=== PATIENT | female | born 1960 | race Caucasian/White ===

== ENCOUNTER 2024-01-26 21:41 | Outpatient (REF) | payer BC, SELFPAY ==
[2024-01-26 22:54] LABS: Anion Gap -0.9 mmol/L (3-11); BUN 15 mg/dL (7-18); CO2 31.9 mmol/L (21.0-32.0); CREATININE 0.8 mg/dL (0.55-1.02); Calcium 8.9 mg/dL (8.5-10.1); Chloride 101 mmol/L (98-107); Estimated GFR 82.74 (mL/min/1.73m2); Glucose 96 mg/dL (74-106); Sodium 132 mmol/L (136-145); Vitamin D 25 Total 26.6 ng/mL (30-100)
== END 2024-01-26 21:42 | disposition home or self-care (01) ==
LOC: NCHCN 21:41
PROVIDERS: Visit Provider Family Medicine
DX: E87.1 Hypo-osmolality and hyponatremia (principal); E55.9 Vitamin D deficiency, unspecified
CPT/HCPCS: 80048; 82306

== ENCOUNTER 2024-02-06 15:48 | Outpatient (REF) | payer BC, SELFPAY ==
[2024-02-06 14:37] LABS: HCT 40.2 % (36.0-46.0); HGB 13.6 g/dL (11.2-15.7); MCH 31.9 pg (27.0-33.0); MCHC 33.8 % (32.0-36.0); MCV 94 fL (80-95); Platelet Count 203 10^3/uL (130-400); RBC 4.26 10^6/uL (3.93-5.22); RDW 12.3 % (11.7-14.6); RDW-SD 42.8 fL; WBC 4.41 10^3/uL (4.4-10.8)
[2024-02-06 14:58] LABS: ALT 60 U/L (14-59); AST 50 U/L (15-37); Alkaline Phosphatase 97 U/L (46-116); Bilirubin, Direct 0.1 mg/dL (0.0-0.2)
== END 2024-02-06 15:49 | disposition home or self-care (01) ==
LOC: NCHCN 15:48
PROVIDERS: PCP Family Medicine; Visit Provider Family Medicine
DX: E87.1 Hypo-osmolality and hyponatremia (principal); E87.8 Other disorders of electrolyte and fluid balance, not elsewhere classified
CPT/HCPCS: 80076; 85027

== ENCOUNTER 2024-02-14 16:35 | Outpatient (REF) | payer BC, SELFPAY ==
[2024-02-14 22:11] LABS: Iron 170 ug/dL (50-170); Total Iron Binding Capacity 232 ug/dL (250-450); Transferrin Sat 73 % (15-50)
[2024-02-14 22:29] LABS: Ferritin 144 ng/mL (8-252)
[2024-02-16 09:00] LABS: Hepatitis C Ab w Rflx HCV PCR Negative (Negative)
[2024-02-16 09:09] LABS: Hepatitis B Surface Ag Negative (Negative)
[2024-02-16 14:29] LABS: ANA Interpretation Negative (Negative)
[2024-02-17 16:05] LABS: Smooth Muscle Ab Screen Negative (Negative)
== END 2024-02-14 16:36 | disposition home or self-care (01) ==
LOC: NCHCN 16:35
PROVIDERS: PCP Family Medicine; Visit Provider Family Medicine
DX: R74.01 Elevation of levels of liver transaminase levels (principal)
CPT/HCPCS: 86803; 87340; 82728; 83540; 83550; 86038; 86255

== ENCOUNTER 2024-03-20 21:33 | Outpatient (REF) | payer BC, SELFPAY ==
--- OUTSIDE RECORDS SUMMARY | 2024-03-20 21:35 | XMS_ITS | Encounter Summary ---
Author Organization [facility] Address [address] [place] [address] Care Team Providers Care Automatic Drill Operator Name Role Phone Indy Champion MD Primary Care Provider Encounter Details Date Type Department Care Team (Late st Contact Info) Description 06/28/2023 Lab Requisition [facility] Pathology & Laboratory Medicine - [facility] [address] [place] [address] Peri Cordero MD [address] [place] [address] [address] [place] [phone] Neoplasm of uncertain behavior of skin Social History Tobacco Use Types Packs/Day Years Used Date Smoking Tobacco: Never Smokeless Tobacco: Never Alcohol Use Standard Drinks/Week Comments Yes 7 (1 standard drink = 0.6 oz pur e alcohol) 1 glass wine q evening Interpersonal Safety Answer Date Record ed Physically Hurt Never 02/10/2020 Verbally Threaten Not on file 02/10/2020 Sex and Gender Information Value Date Recorded Sex Assigned at Not on file Gender Identity Female 05/16/2019 10:23 EST Sexual Orientation Not on file documented as of this encounter Functional Status Functional Status Response Date of Assess ment Because of a physical, menta l, or emotional condition, does this person have difficulty doing errands alone such as visiting a doctor's office or shopping? No 04/20/2017 Cognitive Status Response Date of Assessm ent Because of a physical, menta l, or emotional condition, does this person have serious difficulty concentrating, remembering, or making decisions? No 04/20/2017 documented as of this encounter Plan of Treatment Upcoming Encounters Date Type Department Care Team (Late st Contact Info) Description 03/21/2024 8:30 EDT Appointment [facility] [address] [place], [place] [phone] 04/17/2024 10:50 EDT Appointment [facility] Endoscopy - [address] [phone] Marcellus Walsh MD [address] [place] [address] 5 [place] [phone] 05/01/2024 13:30 EDT Appointment [facility] Breast Imaging - [address] [phone] 05/15/2024 15:00 EST Telemedicine [facility] Gastroenterology - [address] [phone] Madhu Park MD PhD [address] [place] [phone] 12/10/2024 11:30 EDT Office Visit [facility] Surgical Oncology - [address] [phone] [facility], PA-C [address] [place] [address], [facility] 2 [place] [phone] documented as of this encounter Procedures Procedure Name Priority Date/Time Associated Diagnosis Comments SURGICAL PATHOLOGY Today 06/28/2023 13 :29 EST Neoplasm of uncertain behavior of skin documented in this encounter Results * SURGICAL PATHOLOGY (06/28/2023 13:29 EST) Note to Patient The following pathology results have been interpreted by your pathologist and may be available to you before your health provider has had the opportunity to review them. Please allow time for your provider to receive these results and explore management options, if applicable. 06/29/2023 15:58 [facility] Final Diagnosis A. SKIN OF GLABELLA, SHAVE BIOPSY: - Basal cell carcinoma, at least superficial type, transected at the base. 06/29/2023 15:58 [facility] Attestation By the signature below, the attending physician certifies that they have 1) personally conducted a gross and/or microscopic examination of the described specimen(s), and/or personally interpreted the results of laboratory testing of the described specimen(s), and 2) personally rendered or confirmed the above diagnosis. 06/29/2023 15:58 [facility] at 1558 Clinical History Pearly telangiectatic papule; Ddx: R/O BCC; Notes: Mohs GG; clinical diagnosis code: D48.5 06/29/2023 15:58 [facility] Gross Description A. Received in formalin labelled with proper patient identification (initials T, D) and glabella is a dull olivia skin shave, 0.2 cm in greatest dimension. The margin is inked. Entirely submitted intact in A1. URI HOLDEN(ASCP) 06/29/2023 7:14 06/29/2023 15:58 [facility] Performing Lab [facility] 06/29/2023 15:58 [facility] Scanned Images 06/29/2023 15:58 [facility] Tissue SPECIMEN FROM SKIN / Unknown 06/28/2023 13:29 EST 06/28/2023 20:02 EST Peri Cordero MD PATHOLOGY ORDERABLES [facility] [address] [place] [address] documented in this encounter Visit Diagnoses Diagnosis Neoplasm of uncertain behavior of skin documented in this encounter Care Teams Automatic Drill Operator Relationship Specialty Start Date End Date Indy Champion MD [address] [place] [id number] PCP - General 04/15/15 documented as of this encounter
--- OUTSIDE RECORDS SUMMARY | 2024-03-20 21:35 | XMS_ITS | Encounter Summary ---
Author Organization [facility] Address [address] [place] [address] Care Team Providers Care Chief Growth Officer Name Role Phone Indy Champion MD Primary Care Provider Reason for Visit * Reason Comments Follow-up Encounter Details Date Type Department Care Team (Late st Contact Info) Description 06/16/2022 9:30 EST Office Visit [facility] Surgical Oncology - [address] [address] [facility] PAPrabhaC [address] [place] [address], Level 2 [place] [phone] Dense breast tissue on mammogram (Primary Dx) Social History Tobacco Use Types Packs/Day Years Used Date Smoking Tobacco: Never Smokeless Tobacco: Never Tobacco Cessation:Counseling Given: Not Answered Alcohol Use Standard Drinks/Week Comments Yes 7 [...] on file documented as of this encounter Last Filed Vital Signs Vital Sign Reading Time Taken Comments Blood Pressure 133/64 06/16/2022 0927 EST Pulse 54 06/16/2022 0927 EST Temperature 36.1 ??C (96.9 ??F) 06/16/2022 0927 EST Respiratory Rate - - Oxygen Saturation - - Inhaled Oxygen Concentration - - Weight - - Height - - Body Mass Index - - documented in this encounter Functional Status Functional Status Response [...] No 04/20/2017 documented as of this encounter Progress Notes * [facility] PA-C - 06/16/2022 0930 EST Subjective: Patient ID: Sandhya Lomas is an 61 y.o. y.o. female Chief Complaint: Chief Complaint Patient presents with ??? Follow-up HPI: Division of Surgical Oncology- Breast [facility] PROGRESS NOTE/FOLLOW UP- 06/16/2022 PROBLEM: 1. ??Dense breast tissue 2. ??S/p 11/03/16 ultrasound-guided left breast biopsy. ??Pathology was benign and concordant showing fibrocystic changes including papillary apocrine hyperplasia and dense interlobular fibrosis SUBJECTIVE: Sandhya Lomas is a 61??year old female who returns to the clinic for her clinical breast exam. ??Josh established care in our clinic previously due to her personal history of dense breast tissue.Screening continues to include annual mammography, screening ultrasounds (due to breast density) and clinical breast exams. Patient does not have any breast concerns today. She denies any masses, skin changes or nipple discharge. Patient reports she did undergo a right total hip replacement in Decemberthis year. She did undergo another Mohs surgery (face) last month. She continues to follow-up with [facility]. 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 Menarche at age 14. ??. ??First delivery at age 36. ?? SOCIAL HISTORY: , lives in [place]One??of her sons lives in [place] and the other is in [place]. ? FAMILY HISTORY: No family history of breast and/or ovarian cancer Patient Active Problem List Diagnosis ??? Basal cell carcinoma of skin ??? Inconclusive mammogram due to dense breasts ??? Diffuse cystic mastopathy of both breasts Past Medical History: Diagnosis Date ??? Anemia resolved Iron deficiency anemia winter 2008 ??? Basal cell carcinoma ??? BCC (basal cell carcinoma), leg 12/11/2010 right vázquez ??? Complication of anesthesia difficulty waking from general anesthesia ??? Diffuse cystic mastopathy 12/01/2009 ??? S/P colonoscopy 03/2011 Norm. 10 yr f/u Past Surgical History: Procedure Laterality Date ??? ABDOMEN SURGERY 1988 dermoid cyst ??? BREAST FNA Left 2017 ??? SECTION 1995, 1997 ??? MOHS SURGERY 11/2009 basal cell carcinoma, right orthodox Family History Problem Relation Age of Onset ??? Cancer Mother 68 lung ??? Diabetes Father ??? Cancer Maternal Aunt 58 lungs/p smoking ??? Cancer Maternal Uncle 60 lungs/p smoking ??? Rheumatologic Disease Paternal Grandmother lupus Social History Tobacco Use ??? Smoking status: Never ??? Smokeless tobacco: Never Substance Use Topics ??? Alcohol use: Yes Alcohol/week: 7.0 standard drinks Types: 7 Glasses of wine per week Comment: 1 glass wine q evening ??? Drug use: No acyclovir (ZOVIRAX) 5 % ointment CHOLECALCIFEROL, VITAMIN D3, ORAL ibuprofen (ADVIL ORAL) NIACINAMIDE ORAL valacyclovir (VALTREX) 1 g tablet VITAMIN E/FLAXSEED OIL (OMEGA-3 FLAXSEED OIL ORAL) No current facility-administered medications for this visit. No Known Allergies BP 133/64 Pulse 54 Temp 36.1 ??C (96.9 ??F) (Temporal) Review of Systems: Constitutional: Negative for chills, fever, malaise/fatigue and weight loss Eyes: Negative for pain Respiratory: Negative for hemoptysis, shortness of breath and wheezing Cardiovascular: Negative for chest pain, claudication and leg swelling Gastrointestinal: Negative for abdominal pain Musculoskeletal: Negative for myalgias Skin: Negative for rash Neurological: Negative for sensory change, speech change, seizures and loss of consciousness Endo/Heme/Allergies: Does not bruise/bleed easily Psychiatric/Behavioral: Negative for hallucinations, substance abuse and suicidal ideas - See HPI Physical Exam: Constitutional: She is oriented to person, place and time. Vital signs are normal. She appears well-developed and well-nourished.No distress noted. Head: Normocephalic and atraumatic Eyes: No discharge. No scleral icterus. Cardiovascular: Normal rate and regular rhythm. Pulmonary/Chest: Effort normal and breath sounds normal. No respiratory distress. She has no wheezes,rhonchi or rales. Breast Exam: Breasts and axilla are examined in the seated and the supine position. Dense breast tissue noted in bilateral breast. In the right breast at 730 to 8:00 4 cm out from the nipple there isan area of denser tissue which on most recent ultrasound in February 2022 revealed a stable oval mass. There are no discrete or obvious palpable abnormalities in either breast. There is no skin puckering, dimpling, nipple inversion/change, or nipple discharge. There is no obvious discoloration of thebreast. There are no axillary masses Lymphadenopathy: She has no cervical, supraclavicular or axillary adenopathy. Neurological: She is alert and oriented x3, Coordination is normal Skin: Skin is warm and dry. No rash is present. No erythema or pallor is present. Psychiatric: Patient has normal mood and affect. Her behavior is normal. Vital signs have been reviewed. MA BREAST SCREENING CINDY BILATERAL 08/14/2021 2:30 PM History: Routine Comparison: Comparison has been made to previous images. Technique: Routine 3D tomosynthesis with synthesized 2D views with CAD Bilateral Breast Composition: The breast tissue is extremely dense, which lowers the sensitivity ofmammography. Bilateral Breast Findings: No significant masses, calcifications or other abnormalities are seen. IMPRESSION Negative, no evidence of malignancy. RECOMMENDATION: Routine screening mammography is recommended. Given the extreme breast density, we recommend annual screening mammography and supplemental screening breast ultrasound. OVERALL ASSESSMENT: BI-RADS 1: Negative US ABUS BREAST SCREENING BILATERAL 03/04/2022 10:45 AM Clinical History/Comments: Screening. dense breast tissue on mammogram Comparisons: Mammography most recently performed in August 2021, prior automated breast ultrasound screening in February 2021 and November 2018 and prior hand-held ultrasound screening in February 2020 and October 2017. Technique: 3-D automated breast ultrasound was performed using the 6-15 MHz [employer] ABUS device. All 4 quadrants and the subareolar regions were examined. These images and multiplanar reformats were reviewedon a dedicated workstation. Findings Right Breast: Background echotexture: Heterogeneous background echotexture No suspicious ultrasound findings are identified. There is a stable oval mass at 7:30, 4 cm from the nipple. Findings Left Breast: Background echotexture: Heterogeneous background echotexture No suspicious ultrasound findings are identified. Impression Right Breast: Benign, BI-RADS Category 2. Impression Left Breast: Negative, BI-RADS Category 1. Recommendation Bilateral Breasts: No specific sonographic evidence of malignancy in either breast. Annual screening mammography is recommended, which is next due in August 2022. Additionally, if ongoing supplemental whole breast screening ultrasound is desired, this could next be performed in February 2023. Overall Assessment: BI-RADS Category Assessment 2: Benign Findings. Assessment: Anne continues to follow in our clinic due to her personal history of dense fibrocystic breasts. ??Screening has included annual mammography, screening ultrasounds (due to breast density) and clinical breast exams. Patient had a screening mammogram performed most recently on 08/14/2021 which was read as negative. Her breast tissue was noted to be extremely dense. We did discuss continuing to supplement her annual mammogram with a screening ultrasound given her breast density. She did have a screening ultrasound performed most recently on 03/04/2022 which was read as benign. Her breast exam today was stable, and did not reveal any new concerning findings and compared to her most recent screening ultrasound results. Plan: 1. Schedule screening mammogram, due 08/2022 2. Screening ultrasound, due 02/2023 3. Return to clinic in 12 months for clinical breast exam. Patient can see her PCP or her BLOOD BANK BOOKING CLERK in 6 months for an additional clinical breast exam. 4. Encouraged patient to practice breast awareness and report any changes or new concerns to our office. Patient was seen for 20 minutes and 10 minutes were spent in face to face counseling regarding personal history of dense breast tissue. Screening plan was discussed as above. I was directly supervised by our clinic physician, Dr. Cook, who was in the suite and immediately available for the entire time for the above documented service was provided. Encounter Diagnoses Name Primary? Dense breast tissue on mammogram Yes [facility] PA-C No orders of the defined types were placed in this encounter. documented in this encounter Plan of Treatment Upcoming Encounters Date Type Department Care Team (Dank st Contact Info) Description 03/21/2024 8:30 EDT Appointment [facility] [address] [place], [place] [phone] 04/17/2024 10:50 EDT Appointment [facility] Endoscopy - [address] [phone] Marcellus Walsh MD [address] [place] [address] 5 [place] [phone] 05/01/2024 13:30 EDT Appointment [facility] Breast Imaging - [facility] [address] [place], [place] [phone] 05/15/2024 15:00 EST Telemedicine [facility] Gastroenterology - [address] [phone] Madhu Park MD PhD [address] [place] [phone] 12/10/2024 11:30 EDT Office Visit [facility] Surgical Oncology - [address] [phone] [facility], PA-C [address] [place] [address], [facility] 2 [place] [phone] documented as of this encounter Procedures Procedure Name Priority Date/Time Associated Diagnosis Comments ORDERS - SCANNED 01/14/2023 10:34 EDT documented in this encounter Results * ORDERS - SCANNED (01/14/2023 10:34 EDT) 01/14/2023 10:3 4 EDT Scan 2 [facility] ADMISSION ORDERABLE S documented in this encounter Visit Diagnoses Diagnosis Dense breast tissue on mammogram- Primary documented in this encounter Care Teams Chief Growth Officer Relationship Specialty Start Date End Date Indy Champion MD [address] [place] [address] PCP - General 04/15/15 documented as of this encounter
--- OUTSIDE RECORDS SUMMARY | 2024-03-20 21:35 | XMS_ITS | Encounter Summary ---
Author Organization [facility] Address [address] [place] [address] Care Team Providers Care Insurance Follow Up Representative Name Role Phone Indy Champion MD Primary Care Provider Reason for Visit * Reason Onset Date Comments Requesting Sooner Appointment 06/08/2022 Encounter Details Date Type Department Care Team (Late st Contact Info) Description 06/08/[address] [facility] Surgical Oncology - [address] [address] [facility], PA-C [address] [place] [address], Level [address] [place] [phone] Requesting Sooner Appointment Social History Tobacco Use Types Packs/Day Years [...] No 04/20/2017 documented as of this encounter Miscellaneous Notes * Telephone Encounter - Nancy Ramirez - 06/08/2022 1110 EST No availability until November 2022; patient is aware. She will keep her appt on 06/16/2022 with [facility]. Nancy Ramirez 06/08/2022 11:11 * Telephone Encounter - CostelloHa brown - 06/08/2022 1054 EST Patient wondering if there is any possibility of moving their appt up to this week. Please call to discuss. documented in this encounter Plan of Treatment Upcoming Encounters Date Type Department Care Team (Late st Contact Info) Description 03/21/2024 8:30 EDT Appointment [facility] Ultrasound [address] [place] [address] 04/17/2024 10:[address] [facility] Endoscopy - [facility] [address] [place], [place] [address] Marcellus Walsh MD [address] [phone] 05/01/2024 13:[address] [facility] Breast Imaging - [address] [phone] 05/15/2024 15:[address] [facility] Gastroenterology - [facility] [address] [place], [place] [address] Madhu Park MD PhD [address] [phone] 12/10/2024 11:30 EDT Office Visit [facility] Surgical Oncology - [facility] [address] [place], [place] [address] [facility] PA-C [address] [facility], [facility], Level [address] [place] [phone] documented as of this encounter Visit Diagnoses Not on filedocumented in this encounter Care Teams Insurance Follow Up Representative Relationship Specialty Start Date End Date Indy Champion MD [address] [place] [address] PCP - General 04/15/15 documented as of this encounter
--- OUTSIDE RECORDS SUMMARY | 2024-03-20 21:35 | XMS_ITS | Encounter Summary ---
Author Organization [facility] Address [address] [place] [address] Care Team Providers Care Kerrick Kleaner Operator Name Role Phone Indy Champion MD Primary Care Provider Reason for Visit * Reason Onset Date Comments Appointment Related 06/09/2021 Encounter Details Date Type Department Care Team (Late st Contact Info) Description 06/09/2021 Telephone [facility] Surgical Oncology - [address] [phone] [facility], PA-C [address] [place] [address], Level [address] [place] [phone] Appointment Related Social History Tobacco Use Types Packs/Day Years [...] encounter Miscellaneous Notes * Telephone Encounter - Lety Chacon - 06/09/2021 0923 EST received a call from the patient looking to reschedule her visit with [facility] on: 06/10/2021. While on the phone we rescheduled this visit to: 06/11/2021 - pt is aware Lety Marteon 06/09/2021 9:27 documented in this encounter Plan of Treatment Upcoming Encounters Date Type Department Care Team (Late st Contact Info) Description 03/21/2024 8:30 EDT Appointment Karin Danielle [address] [address] 04/17/2024 10:50 EDT Appointment [facility] Endoscopy - [address] [address] Marcellus Walsh MD [address] [place] [address] 5 [place] [phone] 05/01/2024 13:30 EDT Appointment [facility] Breast Imaging - [address] [address] 05/15/2024 15:00 EST Telemedicine [facility] Gastroenterology - [address] 635571 Madhu Park MD PhD [address] [place] [address] 5 [place] [phone] 12/10/2024 11:30 EDT Office Visit [facility] Surgical Oncology - [address] 797[address] [facility], PA-C [address] [place] [address], Level [address] [place] [phone] documented as of this encounter Visit Diagnoses Not on filedocumented in this encounter Care Teams Kerrick Kleaner Operator Relationship Specialty Start Date End Date Indy Champion MD [address] [place] [address] PCP - General 04/15/15 documented as of this encounter
--- OUTSIDE RECORDS SUMMARY | 2024-03-20 21:35 | XMS_ITS | Clinical Summary ---
Author Organization [facility] Address [address] [place] [address] Care Team Providers Care It Application Development Manager Name Role Phone Indy Champion MD Primary Care Provider Allergies No known active allergies Medications Medication Sig Dispensed Refills Start Date End Date Status VITAMIN E/FLAXSEED OIL (OMEGA-3 FLAXSEED OIL ORAL) Take 1 Tab by mouth daily. Active valacyclovir (VALTREX) 1 g tablet Take 0.5 Tabs by mouth 2 times daily. For three days at the earliest onset of symptoms 18 Tab 1 04/29/2010 Active acyclovir (ZOVIRAX) 5 % ointmentIndications: Recurrent cold sores Apply to lip at onset of tingling. Can three times per day 1 Tube 1 04/21/2011 Active Additional Information Patient not taking.Reported on 11/24/2023 NIACINAMIDE ORAL Take by mouth. Acti ve ibuprofen (ADVIL ORAL) Take by mouth. Active CHOLECALCIFEROL, VITAMIN D3, ORAL Take by mouth. Acti ve Active Problems Problem Noted Date Diagnosed Date Diffuse cystic mastopathy of both breasts 2009 Basal cell carcinoma of skin 10/24/2009 Overview: Right anglican, s/p Mohs - 11/24/09 Inconclusive mammogram due to dense breasts Overview: Extremely dense breast tissue and diffuse palpable nodularity Encounters Date Type Department Care Team Description 03/15/2024 Lab Requisition [facility] Pathology & Laboratory Medicine - [facility] [address] [place] [address] Prajapati, Tawny Neoplasm of uncertain behavior of skin 02/28/2024 - 02/28/2024 23:59 EDT Hospital Encounter [facility] Secondary Reads [place] Discharge Disposition: Home or Self Care 02/15/2024 Lab Requisition [facility] Pathology & Laboratory Medicine [address] [address] Outr Resulting Lab, Provider 02/15/2024 Lab Requisition [facility] Pathology & Laboratory Medicine [address] [address] Outr Resulting Lab, Provider 02/02/2024 Transcribe Orders [facility] Gastroenterology [address] [address] Rocio Hendrix MD Special screening for malignant neoplasms, colon (Primary Dx) from Last 3 Months Immunizations Name Administration Dates Next Due Tdap Vaccine =>7YO IM 04/21/2011 Surgical History Surgery Date Site/Laterality Comments MOHS SURGERY 11/08/2009 - 12/08/2009 basal cell carcinoma, right anglican SECTION 1995, 1997 ABDOMEN SURGERY 07/11/1987 - 07/10/1988 dermoid cyst BREAST FNA 07/11/2016 - 07/10/2017 Left Medical History Medical History Date Comments Diffuse cystic mastopathy 12/01/2009 Basal cell carcinoma BCC (basal cell carcinoma), leg 12/11/2010 right vázquez Anemia resolved Iron de ficiency anemia winter 2008 Complication of anesthesia diffi culty waking from general anesthesia S/P colonoscopy 03/2011 Norm. 10 yr f/u Family History Medical History Relation Comments Diabetes Father Cancer Maternal Aunt lungs/p smoking Cancer Maternal Uncle lungs/p smoking Cancer Mother lung Rheumatologic Disease Paternal Grandmother lupus Relation Status Comments Brother 1 Alive Brother 2 Alive Brother 3 Alive Father Maternal Aunt Maternal Uncle Mother Paternal Grandmother Sister 1 Alive Sister 2 Alive Social History Tobacco Use Types Packs/Day Years [...] 10:23 EST Sexual Orientation Not on file Obstetrics History Para Term AB IAB SAB Ectopic Multiple Livin g Live Births 2 2 2 Date Outcome GA Total Labor Labor/2nd/3rd Weight Sex Type Anes PTL Opal A1 A5 Name Clin Para Para Last Filed Vital Signs Vital Sign Reading Time Taken Comments Blood Pressure 134/75 11/24/2023 1324 EDT Pulse 66 11/24/2023 1324 EDT Temperature 36.1 ??C (96.9 ??F) 06/16/2022 0927 EST Respiratory Rate 12 06/11/2021 1458 EST Oxygen Saturation 100% 03/11/2011 1035 EDT Inhaled Oxygen Concentration - - Weight 58.5 kg (129 lb) 04/11/2012 0952 EDT Height 165.1 cm (5' 5) 08/13/2020 1104 EST Body Mass Index 21.11 04/11/2012 0952 EDT Plan of Treatment Upcoming Encounters Date Type Department Care Team (Late st Contact Info) Description 03/21/2024 8:30 EDT Appointment Karin Danielle Ultrasound [address] [place], [place] [address] 04/17/2024 10:50 EDT Appointment [facility] Endoscopy - [address] [address] Marcellus Walsh MD [address] [place] [phone] 05/01/2024 13:30 EDT Appointment [facility] Breast Imaging - [facility] [address] [phone] 05/15/2024 15:00 EST Telemedicine [facility] Gastroenterology - [address] [phone] Madhu Park MD PhD [address] [phone] 12/10/2024 11:30 EDT Office Visit [facility] Surgical Oncology - [facility] [address] [place], [place] [phone] Magnolia Blood PA-C 111 [facility], Level [address] [place] [address] Health Maintenance Due Date Last Done Comments RSV Immunization ( o r 60+ Years) (1 - 1-dose 60+ series) 2020 COVID-19 Vaccine (2022-24 season) 2024 Hepatitis C Screen Completed 02/14/2024 Procedures Procedure Name Priority Date/Time Associated Diagnosis Comments SURGICAL PATHOLOGY Today 03/14/2024 12 :28 EDT Neoplasm of uncertain behavior of skin US OUTSIDE IMAGES BODY Routine 02/28/2024 15:40 EDT ORDERS - SCANNED 02/15/2024 17:4 1 EDT HOLD SST Today 02/14/2024 14:10 EDT HEPATITIS B SURFACE ANTIGEN Today 02/14/2024 14:10 EDT HEPATITIS C AB W REFLEX TO HCV RNA BY PCR Today 02/14/2024 14:10 EDT ANTI NUCLEAR AB (REMY), IFA Routine 02/14/2024 14:10 EDT from Last 3 Months Results * SURGICAL PATHOLOGY (03/14/2024 12:28 EDT) Note to Patient The following pathology results have been interpreted by your pathologist and may be available to you before your health provider has had the opportunity to review them. Please allow time for your provider to receive these results and explore management options, if applicable. 03/16/2024 13:24 EDT [facility] Final Diagnosis A. SKIN OF FOREHEAD, LEFT LATERAL, SHAVE BIOPSY: - Basal cell carcinoma, superficial multicentric type. - Lesion extends to peripheral edge of biopsy specimen. 03/16/2024 13:24 [facility] Attestation By the signature below, the attending physician certifies that they have 1) personally conducted a gross and/or microscopic examination of the described specimen(s), and/or personally interpreted the results of laboratory testing of the described specimen(s), and 2) personally rendered or confirmed the above diagnosis. 03/16/2024 13:24 [facility] at 1324 Clinical History Basal cell carcinoma vs inflammatory papule; clinical diagnosis code: D48.5 03/16/2024 13:24 [facility] Gross Description A. Received in formalin labelled with proper patient identification (initials T, D) and left lateral forehead is a shave biopsy of irregular pearly brown skin (0.6 x 0.4 x 0.1 cm). The margin is inked blue, the specimen is bisected and entirely submitted in A1. Mar Ferguson 03/15/2024 11:38 03/16/2024 13:24 T [facility] Performing Lab [facility] 03/16/2024 13:24 T [facility] Scanned Images 03/16/2024 13:24 EDT [facility] Tissue SPECIMEN FROM SKIN / Unknown 03/14/2024 12:28 EDT 03/15/2024 8:06 EDT Lisa Rodriguez [facility] PATHOLOGY ORDERABLES [facility] [address] [place] [address] * US OUTSIDE IMAGES BODY (02/28/2024 15:40 EDT) Narrative 03/02/2024 15:41 EDT This is a non-reportable exam. External Imaging IMG OTHER IMAGING OR DERABLES * ORDERS - SCANNED (02/15/2024 17:41 EDT) 02/15/2024 17:4 1 EDT Scan 2 Systems Design Engineer ADMISSION ORDERABLE S * HOLD SST (02/14/2024 14:10 EDT) Hold Hold 02/15/2024 18:15 EDT [facility] Blood VENOUS BLOOD / Unknown 02/14/2024 14:10 EDT 02/15/2024 17:12 EDT Provider Outr Resulting Lab LAB INFO SER VICE AND SUPPORT & PHONE RESULT Performing Organization Address [facility]/ZIP Co de Phone Number [facility] [address] [place] [address] * HEPATITIS C AB W REFLEX TO HCV RNA BY PCR (02/14/2024 14:10 EDT) Hep C Antibody Negative Negative 02/16/2024 8:55 EDT [facility] Blood VENOUS BLOOD / Unknown 02/14/2024 14:10 EDT 02/15/2024 17:11 EDT Provider Outr Resulting Lab CHEMISTRY & BLOOD GAS ORDERABLES Performing Organization Address [facility]/ZIP Co de Phone Number [facility] [address] [place] [id number] * HEPATITIS B SURFACE ANTIGEN (02/14/2024 14:10 EDT) Hep B Surface Ag Negative Negative 02/16/2024 9:05 EDT [facility] Blood VENOUS BLOOD / Unknown 02/14/2024 14:10 EDT 02/15/2024 17:11 EDT Provider Outr Resulting Lab CHEMISTRY & BLOOD GAS ORDERABLES Performing Organization Address City/[facility]/ZIP Co de Phone Number [facility] [address] [place], [place] [id number] * ANTI NUCLEAR AB (REMY), IFA (02/14/2024 14:10 EDT) REMY Interpretation Negative Negative 2023 14:25 EDT [facility] Comment:No titer performed, REMY Screen is negative. Blood VENOUS BLOOD / Unknown 02/14/2024 14:10 EDT 02/15/2024 17:13 EDT Narrative [facility] - 02/16/2024 14:25 EDT Results were obtained with the [employer] NOVA Lite HEp-2 REMY Kit by indirect immunofluorescence. Provider Outr Resulting Lab IMMUNOLOGY A ND SEROLOGY ORDERABLES [facility] [address] [place], [place] [phone] from Last 3 Months Care Teams It Application Development Manager Relationship Specialty Start Date End Date Indy Champion MD [address] [place] [address] PCP - General 04/15/15
--- OUTSIDE RECORDS SUMMARY | 2024-03-20 21:35 | XMS_ITS | Encounter Summary ---
Author Organization [facility] Address [address] [place] [address] Care Team Providers Care Stair Builder Name Role Phone Indy Champion MD Primary Care Provider Reason for Visit * Reason Onset Date Comments Complex Medical Problems 06/16/2022 Encounter Details Date Type Department Care Team (Late st Contact Info) Description 06/16/2022 Orders Only [facility] Surgical Oncology - [address] [address] Magnolia Blood, PA-C 111 [facility], Level [address] [place] [address] Dense breast tissue on mammogram [...] 8:30 EDT Appointment Karin Danielle Ultrasound [address] [place] [address] 04/17/2024 10:50 EDT Appointment [facility] Endoscopy - [address] [phone] Marcellus Walsh MD [address] [place] [phone] 05/01/2024 13:30 EDT Appointment [facility] Breast Imaging - [address] [phone] 05/15/2024 15:00 EST Telemedicine [facility] Gastroenterology - [address] [phone] Madhu Park MD PhD [address] [place] [phone] 12/10/2024 11:30 EDT Office Visit [facility] Surgical Oncology - [address] [phone] Magnolia Blood PA-C [address] [place] [address], [facility] [address] [place] [phone] documented as of this encounter Visit Diagnoses Diagnosis Dense breast tissue on mammogram- Primary documented in this encounter Care Teams Stair Builder Relationship Specialty Start Date End Date Indy Champion MD [address] [place], [place] [address] PCP - General 10/6/15 documented as of this encounter
--- OUTSIDE RECORDS SUMMARY | 2024-03-20 21:35 | XMS_ITS | Encounter Summary ---
Author Organization [facility] Address [address] [place] [address] Care Team Providers Care Filling Hauler Weaving Name Role Phone Indy Champion MD Primary Care Provider Encounter Details Date Type Department Care Team (Late st Contact Info) Description 02/17/2022 Lab Requisition [facility] Pathology & Laboratory Medicine - [facility] [address] [place] [address] Tam Pal, PAPrabhaC [address] [facility] [address] [place] [address] Neoplasm of uncertain behavior of skin Social [...] 8:30 EDT Appointment Karin Danielle Ultrasound [address] [place], [place] [address] 04/17/2024 10:50 EDT Appointment [facility] Endoscopy - [address] [phone] Marcellus Walsh MD [address] [place] [address] 5 [place] [phone] 05/01/2024 13:30 EDT Appointment [facility] Breast Imaging - [address] [phone] 05/15/2024 15:00 EST Telemedicine [facility] Gastroenterology - [address] [phone] Madhu Park MD PhD [address] [place] [phone] 12/10/2024 11:30 EDT Office Visit [facility] Surgical Oncology - [address] [phone] Magnolia Blood, PA-C [address] [place] [address], [facility] [address] [place] [phone] documented as of this encounter Procedures Procedure Name Priority Date/Time Associated Diagnosis Comments SURGICAL PATHOLOGY Today 02/16/2022 10 :20 EDT Neoplasm of uncertain behavior of skin documented in this encounter Results * SURGICAL PATHOLOGY (02/16/2022 10:20 EDT) Note to Patient The following pathology results have been interpreted by your pathologist and may be available to you before your health provider has had the opportunity to review them. Please allow time for your provider to receive these results and explore management options, if applicable. 02/17/2022 16:27 [facility] Final Diagnosis A. SKIN OF CHEEK, LEFT INFERIOR MEDIAL MALAR, SHAVE BIOPSY: - Basal cell carcinoma, superficial and nodular types. - Lesion extends to biopsy edge and base. 02/17/2022 16:27 [facility] Attestation By the signature below, the attending physician certifies that they have 1) personally conducted a gross and/or microscopic examination of the described specimen(s), and/or personally interpreted the results of laboratory testing of the described specimen(s), and 2) personally rendered or confirmed the above diagnosis. 02/17/2022 16:27 [facility] at 1627 Clinical History 8 mm suspicious telangiectatic papule; DDx: Rule-out basal cell carcinoma vs. other; clinical diagnosis code: D48.5 02/17/2022 16:27 [facility] Gross Description A. Received in formalin labelled with proper patient identification (initials T, D) and left inferior medial malar... is a shave biopsy of brown skin (0.6 x 0.3 x 0.1 cm). The margin is inked blue. The tissue is bisected and entirely submitted in A1. URI CAPELLAN(ASCP) 02/17/2022 7:38 02/17/2022 16:27 [facility] Performing Lab [facility] 02/17/2022 16:27 [facility] Scanned Images 02/17/2022 16:27 [facility] Tissue TISSUE SPECIMEN FROM SKIN / Unknown 02/16/2022 10:20 EDT 02/17/2022 6:04 EDT Tam Pal PA-C PATHOLOGY ORDERAB [facility] [address] [place] [address] documented in this encounter Visit Diagnoses Diagnosis Neoplasm of uncertain behavior of skin documented in this encounter Care Teams Filling Hauler Weaving Relationship Specialty Start Date End Date Indy Champion MD [address] [place] [address] PCP - General 04/15/15 documented as of this encounter
--- OUTSIDE RECORDS SUMMARY | 2024-03-20 21:35 | XMS_ITS | Encounter Summary ---
Author Organization [facility] Address [address] [place] [address] Care Team Providers Care Repairer And Checker Name Role Phone Indy Champion MD Primary Care Provider Encounter Details Date Type Department Care Team (Latest Contact Info) Description 08/14/2021 Travel Social History Tobacco Use Types Packs/Day Years [...] 10:23 EST Sexual Orientation Not on file COVID-19 Exposure Response Date Recorded In the last month, have you been in contact with someone who was confirmed or suspected to have Coronavirus / COVID-19? No / Unsure 08/14/2021 14:28 EST documented as of this encounter Functional Status [...] Info) Description 03/21/2024 8:30 EDT Appointment Karin Saul [address] [place] [address] 04/17/2024 10:50 EDT Appointment [facility] Endoscopy - [address] [phone] Marcellus Walsh MD [address] [place] [address], [facility] [address] [place] [phone] 05/01/2024 13:30 EDT Appointment [facility] Breast Imaging - [address] [phone] 05/15/2024 15:00 EST Telemedicine [facility] Gastroenterology - [address] [phone] Madhu Park MD PhD [address] [place] [address], [facility] [address] [place] [phone] 12/10/2024 11:30 EDT Office Visit [facility] Surgical Oncology - [address] [phone] Magnolia Blood, PA-C [address] [place] [address], [facility] [address] [place] [phone] documented as of this encounter Visit Diagnoses Not on filedocumented in this encounter Care Teams Repairer And Checker Relationship Specialty Start Date End Date Indy Champion MD [address] [place], [place] [address] PCP - General 04/15/15 documented as of this encounter
--- OUTSIDE RECORDS SUMMARY | 2024-03-20 21:35 | XMS_ITS | Encounter Summary ---
Author Organization [facility] Address [address] [place] [address] Care Team Providers Care Glass Smoother Name Role Phone Indy Champion MD Primary Care Provider Reason for Referral * Radiology Services (Routine/Next Available) - Authorization Not Required Specialty Diagnoses / Procedures Referred By Dedra t Referred To Contact Diagnoses Dense breast tissue on mammogram Encounter for other screening for malignant neoplasm of breast Procedures US ABUS BREAST SCREENING BILATERAL US BREAST SCREENING ONLY BILATERAL Magnolia Blood PA-C [address] [phone] [facility] Referral ID Status Reason Start Date Expiration Date Visits Requested Visits Authorized [id number] Authorization Not Required 06/16/2022 1 1 Reason for Visit * Radiology Services (Routine/Next Available) - Authorization Not Required Specialty Diagnoses / Procedures Referred By Dedra sampson Referred To Contact Diagnoses Dense breast tissue on mammogram Encounter for other screening for malignant neoplasm of breast Procedures US ABUS BREAST SCREENING BILATERAL US BREAST SCREENING ONLY BILATERAL Magnolia Blood PA-C [address] [phone] [facility] Referral ID Status Reason Start Date Expiration Date Visits Requested Visits Authorized [id number] Authorization Not Required 06/16/2022 1 1 Encounter Details Date Type Department Care Team (Latest Contact Info) Description 05/05/2023 13:14 EDT - 05/05/2023 23:59 EDT Hospital Encounter [facility] Breast Imaging - [facility] [address] [place] [address] Dense breast tissue on mammogram; Encounter for other screening for malignant neoplasm of breast Discharge Disposition: Home or Self Care Social History Tobacco Use Types Packs/Day Years [...] No 04/20/2017 documented as of this encounter Medications at Time of Discharge Medication Sig Dispensed Refills Start Date End Date acyclovir (ZOVIRAX) 5 % ointmentIndications:Recur rent cold sores Apply to lip at onset of tingling. Can three times per day 1 Tube 1 04/21/2011 CHOLECALCIFEROL, VITAMIN D3, ORAL Take by mouth. ibuprofen (ADVIL ORAL) Take by mouth. NIACINAMIDE ORAL Take by mouth. valacyclovir (VALTREX) 1 g tablet Take 0.5 Tabs by mouth 2 times daily. For three days at the earliest onset of symptoms 18 Tab 1 04/29/2010 VITAMIN E/FLAXSEED OIL (OMEGA-3 FLAXSEED OIL ORAL) Take 1 Tab by mouth daily. documented as of this encounter Discharge Disposition Disposition Code Departure Means Destination Home or Self Care documented in this encounter Plan of Treatment Upcoming Encounters Date Type Department Care Team (Late st Contact Info) Description 03/21/2024 8:30 EDT Appointment Karin Shashi Ultrasound [address] [place] [address] 04/17/2024 10:50 EDT Appointment [facility] Endoscopy - [address] [phone] Marcellus Walsh MD [address] [place] [address] 5 [place] [phone] 05/01/2024 13:30 EDT Appointment [facility] Breast Imaging - [address] [phone] 05/15/2024 15:00 EST Telemedicine [facility] Gastroenterology - [address] [phone] Madhu Park MD PhD [address] [place] [address] 5 [place] [phone] 12/10/2024 11:30 EDT Office Visit [facility] Surgical Oncology - [address] [phone] Magnolia Blood PA-C [address] [place] [address], [facility] 2 [place] [phone] documented as of this encounter Procedures Procedure Name Priority Date/Time Associated Diagnosis Comments US ABUS BREAST SCREENING BILATERAL Routine 05/05/2023 14:02 EDT Dense breast tissue on mammogram Encounter for other screening for malignant neoplasm of breast documented in this encounter Results * US ABUS BREAST SCREENING BILATERAL (05/05/2023 14:02 EDT) Anatomical Region Laterality Modality Breast Bilateral Ultrasound 05/05/2023 14:4 0 EDT Narrative 05/05/2023 14:40 EDT US ABUS BREAST SCREENING BILATERAL ??05/05/2023 1:30 PM Clinical History/Comments: Screening. Dense breast tissue on mammogram;R92.30:Dense breast tissue on mammogram;Z12.39:Encounter for other screening for malignant neoplasm of breast Comparisons: Mammography most recently performed in November 2022, automated breast ultrasound screening in February 2022, February 2021 and November 2018 and hand-held ultrasound in February 2020 and October 2017. Technique: 3-D automated breast ultrasound was performed using the 6-15 MHz [employer] ABUS device. All 4 quadrants and the subareolar regions were examined. These images and multiplanar reformats were reviewed on a dedicated workstation. Findings Right Breast: Background echotexture: Heterogeneous background echotexture No suspicious ultrasound findings are identified. There is a stable oval mass in the right breast at 7 30-8 o'clock, 4 to 5 cm from the nipple. Findings Left Breast: Background echotexture: Heterogeneous background echotexture No suspicious ultrasound findings are identified. Impression Right Breast: BI-RADS 2: Benign Impression Left Breast: BI-RADS 1: Negative Recommendation Bilateral Breasts: No specific sonographic evidence of malignancy in either breast. Annual screening mammography is recommended, which is next due in November 2023. Additionally, if ongoing supplemental whole breast screening ultrasound is desired, this could next be performed in April 2024. Overall Assessment: BI-RADS 2: Benign The patient will be notified of the breast imaging results via a lay letter from Radiology. ??Radiology will contact the patient directly regarding any findings which require additional imaging. [id number] Magnolia Blood PA-C [facility] US ORDERABL ES documented in this encounter Visit Diagnoses Diagnosis Dense breast tissue on mammogram Encounter for other screening for malignant neoplasm of breast documented in this encounter Care Teams Glass Smoother Relationship Specialty Start Date End Date Indy Champion MD [address] [place] [address] PCP - General 04/15/15 documented as of this encounter
--- OUTSIDE RECORDS SUMMARY | 2024-03-20 21:35 | XMS_ITS | Referral Summary ---
Author Organization [facility] Address [address] [place] [address] Care Team Providers Care Recreation Facility Manager Name Role Phone Indy Champion MD Primary Care Provider Encounters Date Type Department Care Team Description 03/15/2024 Lab Requisition [facility] Pathology & Laboratory Medicine [address] [address] Lisa Prajapati A Neoplasm of uncertain behavior of skin 02/28/2024 - 02/28/2024 23:59 EDT Hospital Encounter [facility] Secondary Reads [place] Discharge Disposition: Home or Self Care 02/15/2024 Lab Requisition [facility] Pathology & Laboratory [address] [address] Outr Resulting Lab, Provider 02/15/2024 Lab Requisition [facility] Pathology & Laboratory Medicine [address] [address] Outr Resulting Lab, Provider 02/02/2024 Transcribe Orders [facility] Gastroenterology [address] [address] Rocio Hendrix MD Special screening for malignant neoplasms, colon (Primary Dx) from Last 3 Months Allergies No known active allergies Medications Medication [...] cell carcinoma of skin 10/24/2009 Overview: Right religion, s/p Mohs - 11/24/09 Inconclusive mammogram due to dense breasts Overview: Extremely dense breast tissue and diffuse palpable nodularity Immunizations Name Administration Dates Next Due Tdap Vaccine =>7YO IM 04/21/2011 Social History Tobacco Use Types Packs/Day Years [...] 10:23 EST Sexual Orientation Not on file Last Filed Vital Signs Vital Sign Reading [...] Body Mass Index 21.11 04/11/2012 0952 EDT Functional Status Functional Status Response Date of Assess ment Because of a physical, menta l, or emotional condition, does this person have difficulty doing errands alone such as visiting a doctor's office or shopping? No 04/20/2017 Cognitive Status Response Date of Assess ent Because of a physical, menta l, or emotional condition, does this person have serious difficulty concentrating, remembering, or making decisions? No 04/20/2017 Plan of Treatment Upcoming Encounters Date Type Department Care Team (Late st Contact Info) Description 03/21/2024 8:30 EDT Appointment [facility] Ul[facility] [address] [place], [place] [address] 04/17/2024 10:50 EDT Appointment [facility] Endoscopy - [address] [address] Marcellus Walhs MD [address] [place] [phone] 05/01/2024 13:30 EDT Appointment [facility] Breast Imaging - [address] [phone] 05/15/2024 15:00 EST Telemedicine [facility] Gastroenterology - [address] [phone] Madhu Park MD PhD [address] [place] [phone] 12/10/2024 11:30 EDT Office Visit [facility] Surgical Oncology - [address] [phone] [facility] PA-C [address] [place] [address], [facility] [address] [place] [phone] Procedures Procedure Name Priority Date/Time Associated Diagnosis [...] explore management options, if applicable. 03/16/2024 13:24 [facility] Final Diagnosis A. SKIN OF FOREHEAD, LEFT LATERAL, SHAVE BIOPSY: - Basal cell carcinoma, superficial multicentric type. - Lesion extends to peripheral edge of biopsy specimen. 03/16/2024 13:24 [facility] Attestation By the signature below, the attending physician certifies that they have 1) personally conducted a gross and/or microscopic examination of the described specimen(s), and/or personally interpreted the results of laboratory testing of the described specimen(s), and 2) personally rendered or confirmed the above diagnosis. 03/16/2024 13:24 [facility] at 1324 Clinical History Basal cell carcinoma vs inflammatory papule; clinical diagnosis code: D48.5 03/16/2024 13:24 [facility] Gross Description A. Received in formalin labelled with proper patient identification (initials T, D) and left lateral forehead is a shave biopsy of irregular pearly brown skin (0.6 x 0.4 x 0.1 cm). The margin is inked blue, the specimen is bisected and entirely submitted in A1. Mar Ferguson 03/15/2024 11:38 03/16/2024 13:24 EDT [facility] Performing Lab [facility] 03/16/2024 13:24 EDT [facility] Scanned Images 03/16/2024 13:24 EDT [facility] Tissue SPECIMEN FROM SKIN / Unknown 03/14/2024 12:28 EDT 03/15/2024 8:06 EDT Lisa Prajapati PATHOLOGY ORDERABLES Performing Organization Address [facility]/ZIP Co de Phone Number [facility] [address] [place] [address] * US OUTSIDE IMAGES BODY (02/28/2024 15:40 EDT) Narrative 03/02/2024 15:41 EDT This is a non-reportable exam. External Imaging IMG OTHER IMAGING OR DERABLES * ORDERS - SCANNED (02/15/2024 17:41 EDT) 02/15/2024 17:4 1 EDT Scan 2 Contract Administrative Assistant ADMISSION ORDERABLE S * HOLD SST (02/14/2024 14:10 EDT) Hold Hold 02/15/2024 18:15 EDT [facility] Blood VENOUS BLOOD / Unknown 02/14/2024 14:10 EDT 02/15/2024 17:12 EDT Provider Outr Resulting Lab LAB INFO SER VICE AND SUPPORT & PHONE RESULT Performing Organization Address City/[facility]/ZIP Co de Phone Number [facility] [address] [place] [address] * HEPATITIS C AB W REFLEX TO HCV RNA BY PCR (02/14/2024 14:10 EDT) Hep C Antibody Negative Negative 02/16/2024 8:55 EDT [facility] Blood VENOUS BLOOD / Unknown 02/14/2024 14:10 EDT 02/15/2024 17:11 EDT Provider Outr Resulting Lab CHEMISTRY & BLOOD GAS ORDERABLES [facility] [address] [place] [address] * HEPATITIS B SURFACE ANTIGEN (02/14/2024 14:10 EDT) Hep B Surface Ag Negative Negative 02/16/2024 9:05 EDT [facility] Blood VENOUS BLOOD / Unknown 02/14/2024 14:10 EDT 02/15/2024 17:11 EDT Provider Outr Resulting Lab CHEMISTRY & BLOOD GAS ORDERABLES Performing Organization Address [facility]/ZIP Co de Phone Number [facility] [address] [place] [address] * ANTI NUCLEAR AB (REMY), IFA (02/14/2024 14:10 EDT) REMY Interpretation Negative Negative 2023 14:25 EDT [facility] Comment:No titer performed, REMY Screen is negative. Blood VENOUS BLOOD / Unknown 02/14/2024 14:10 EDT 02/15/2024 17:13 EDT Narrative [facility] - 02/16/2024 14:25 EDT Results were obtained with the [employer] NOVA Lite HEp-2 REMY Kit by indirect immunofluorescence. Provider Outr Resulting Lab IMMUNOLOGY A ND SEROLOGY ORDERABLES Performing Organization Address City/[facility]/ZIP Co de Phone Number [facility] [address] [place] [address] from Last 3 Months Care Teams Recreation Facility Manager Relationship Specialty Start Date End Date Indy Champion MD [address] [place] [address] PCP - General 04/15/15
--- OUTSIDE RECORDS SUMMARY | 2024-03-20 21:35 | XMS_ITS | Encounter Summary ---
Author Organization [facility] Address [address] [place] [address] Care Team Providers Care Office Lead Name Role Phone Indy Champion MD Primary Care Provider Encounter Details Date Type Department Care Team (Late st Contact Info) Description 01/13/2023 Lab Requisition [facility] Pathology & Laboratory Medicine - [address] [address] Collette Hickman MD [address] [place] [address], [address] [place] [address] Other specified erythematous conditions; Neoplasm of uncertain behavior of skin Social [...] 8:30 EDT Appointment [facility] Ultrasound [address] [place] [address] 04/17/2024 10:50 EDT Appointment [facility] Endoscopy - [address] [phone] Marcellus [place] MD [address] [place] [phone] 05/01/2024 13:30 EDT Appointment [facility] Breast Imaging - [address] [phone] 05/15/2024 15:00 EST Telemedicine [facility] Gastroenterology - [address] [phone] Madhu Park MD PhD [address] [place] [phone] 12/10/2024 11:30 EDT Office Visit [facility] Surgical Oncology - [address] [phone] [facility] PAPrabhaC [address] [place] [address], [facility] [address] [place] [phone] documented as of this encounter Procedures Procedure Name Priority Date/Time Associated Diagnosis Comments SURGICAL PATHOLOGY Today 01/13/2023 8: 25 EDT Other specified erythematous conditions Neoplasm of uncertain behavior of skin documented in this encounter Results * SURGICAL PATHOLOGY (01/13/2023 8:25 EDT) Note to Patient The following pathology results have been interpreted by your pathologist and may be available to you before your health provider has had the opportunity to review them. Please allow time for your provider to receive these results and explore management options, if applicable. 01/14/2023 11:04 [facility] Final Diagnosis A. SKIN OF STERNUM, MIDDLE, SHAVE REMOVAL: - Basal cell carcinoma, nodular type. - Arising in association with solar lentigo. - Basal cell carcinoma does not extend to biopsy edges in the plane of sections examined. - Basal cell carcinoma measures approximately 0.2 mm to the biopsy base. - Basal cell carcinoma measures approximately 2.0 mm to the nearest peripheral edge. B. SKIN OF CHEST, LEFT MEDIAL SUPERIOR, SHAVE REMOVAL: - Basal cell carcinoma, superficial and nodular types. - Lesion does not extend to biopsy edges in the plane of sections examined. - Lesion measures approximately 0.2 mm to the biopsy base. - Lesion measures approximately 0.8 mm to the biopsy edge. 01/14/2023 11:04 [facility] Attestation By the signature below, the attending physician certifies that they have 1) personally conducted a gross and/or microscopic examination of the described specimen(s), and/or personally interpreted the results of laboratory testing of the described specimen(s), and 2) personally rendered or confirmed the above diagnosis. 01/14/2023 11:04 [facility] at 1104 Clinical History A. 0.3 mm pearly pink and brown papule; DDx: Basal cell carcinoma vs. other; Notes: Please review margins; B. 0.7 cm pink pearly papule; DDx: Basal cell carcinoma vs. other; clinical diagnosis code: D48.5, L53.8 01/14/2023 11:04 [facility] Gross Description A. Received in formalin labelled with proper patient identification (initials T, D) and middle sternum is a 0.7 x 0.5 x 0.1 cm ovoid shave of brown-white skin. The margin is inked. The specimen is bisected and entirely submitted in A1. B. Received in formalin labelled with proper patient identification (initials L D) and left medial superior chest is a 1.3 x 1.0 x 0.1 cm ovoid shave of firm, pale brown skin. The margin is inked. The specimen is trisected and entirely submitted in B1. URI HENDRICKS(ASCP) 01/13/2023 15:18 01/14/2023 11:04 EDT [facility] Performing Lab [facility] 01/14/2023 11:04 EDT [facility] Scanned Images 01/14/2023 11:04 EDT [facility] Tissue TISSUE SPECIMEN FROM SKIN / Unknown 01/13/2023 8:25 EDT 01/13/2023 14:53 EDT Tissue specimen (specimen) SPECIMEN FROM SKIN / Unknown 01/13/2023 8:25 EDT 01/13/2023 14:53 EDT Collette Hickman MD PATHOLOGY ORDERABLES [facility] [address] [place] [address] documented in this encounter Visit Diagnoses Diagnosis Other specified erythematous conditions Neoplasm of uncertain behavior of skin documented in this encounter Care Teams Office Lead Relationship Specialty Start Date End Date Indy Champion MD [address] [place] [address] PCP - General 04/15/15 documented as of this encounter
--- OUTSIDE RECORDS SUMMARY | 2024-03-20 21:35 | XMS_ITS | Encounter Summary ---
Author Organization [facility] Address [address] [place] [address] Care Team Providers Care Software Product Manager Name Role Phone Indy Champion MD Primary Care Provider Reason for Visit * Reason Comments Follow-up Encounter Details Date Type Department Care Team (Late st Contact Info) Description 11/24/2023 13:30 EDT Office Visit [facility] Surgical Oncology - [address] [phone] [facility], PA-C [address] [place] [address], [address] [place] [address] Dense breast tissue on mammogram, unspecified type (Primary Dx) Social History Tobacco Use Types [...] EDT Pulse 66 11/24/2023 1324 EDT Temperature - - Respiratory Rate - - Oxygen Saturation - [...] Progress Notes * [facility] PA-C - 11/24/2023 1330 EDT Subjective: Patient ID: Sandhya Lomas is an 63 y.o. y.o. female Chief Complaint: Chief Complaint Patient presents with Follow-up HPI: Division of Surgical Oncology- [facility] PROGRESS NOTE/FOLLOW UP- 11/24/2023 PROBLEM: 1. Dense breast tissue 2. S/p 11/03/16 ultrasound-guided left breast biopsy. Pathology was benign and concordant showing fibrocystic changes including papillary apocrine hyperplasia and dense interlobular fibrosis SUBJECTIVE: Sandhya Lomas is a 63-year-old female who returns to clinic for clinical breast exam. She previously establish care in our clinic due to her personal history of dense breast tissue. Screening continues to include annual mammography, screening ultrasound due to breast density as well as clinical breast exams. Patient does not have any breast concerns today. She denies any masses, skin changes or nipple discharge. Patient reports she was diagnosed with basal cell carcinoma of her forehead. She does continue to follow-up with [facility] every 6 months. She otherwise denies any additional changes to her health. She denies any changes to her family history. DIRECTOR CLOUD TRANSFORMATION HISTORY: Menarche at age 14. . First delivery at age 36. SOCIAL HISTORY: , lives in [place]. One of her sons lives in [place] and the other is in [place]. FAMILY HISTORY: No family history of breast and/or ovarian cancer Patient Active Problem List Diagnosis Basal cell carcinoma of skin Inconclusive mammogram due to dense breasts Diffuse cystic mastopathy of both breasts Past Medical History: Diagnosis Date Anemia resolved Iron deficiency anemia winter 2008 Basal cell carcinoma BCC (basal cell carcinoma), leg 12/11/2010 right vázquez Complication of anesthesia difficulty waking from general anesthesia Diffuse cystic mastopathy 12/01/2009 S/P colonoscopy 03/2011 Norm. 10 yr f/u Past Surgical History: Procedure Laterality Date ABDOMEN SURGERY 1987 dermoid cyst BREAST FNA Left 2017 SECTION 1995, 1997 MOHS SURGERY 11/2009 basal cell carcinoma, right protestant Family History Problem Relation Age of Onset Cancer Mother 68 lung Diabetes Father Cancer Maternal Aunt 58 lungs/p smoking Cancer Maternal Uncle 60 lungs/p smoking Rheumatologic Disease Paternal Grandmother lupus Social History Tobacco Use Smoking status: Never Smokeless tobacco: Never Substance Use Topics Alcohol use: Yes Alcohol/week: 7.0 standard drinks of alcohol Types: 7 Glasses of wine per week Comment: 1 glass wine q evening Drug use: No acyclovir (ZOVIRAX) 5 % ointment CHOLECALCIFEROL, VITAMIN D3, ORAL ibuprofen (ADVIL ORAL) NIACINAMIDE ORAL valacyclovir (VALTREX) 1 g tablet VITAMIN E/FLAXSEED OIL (OMEGA-3 FLAXSEED OIL ORAL) No current facility-administered medications for this visit. No Known Allergies BP 134/75 Pulse 66 Review of Systems: Constitutional: Negative for chills, [...] position. Dense breast tissue noted in bilateral breasts. At the 7:30-8:00 position, 4cm from nipple in the right breast there is a lump which on recent ultrasound indicated this was a stable mass. There are no discrete or obvious palpable abnormalities in the left breast. There is no skin puckering, dimpling, nipple inversion/change, or nipple discharge. There is no obvious discoloration of the breast. There are no axillary masses Lymphadenopathy: She has no cervical, supraclavicular or axillary adenopathy. Neurological: She is alert and oriented x3, Coordination is normal Skin: Skin is warm and dry. No rash is present. No erythema or pallor is present. Psychiatric: Patient has normal mood and affect. Her behavior is normal. Vital signs have been reviewed. US ABUS BREAST SCREENING BILATERAL 05/05/2023 1:30 PM Clinical History/Comments: Screening. Dense breast tissue on mammogram;R92.30:Dense breast tissue on mammogram;Z12.39:Encounter for other screening for malignant neoplasm of breast Comparisons: Mammography most recently performed in November 2022, automated breast ultrasound screening in February 2022, February 2021 and November 2018 and hand-held ultrasound in February 2020 and October 2017. Technique: 3-D automated breast ultrasound was performed using the 6-15 MHz [employer] ABUS device. All 4 quadrants and the [...] April 2024. Overall Assessment: BI-RADS 2: Benign Assessment: Anne continues to follow in our clinic due to her personal history of dense fibrocystic breasts. Screening continues to include annual mammography, screening ultrasound due to her breast density as well as clinical breast exams. She has a screening mammogram scheduled later today. Her most recent screening ultrasound was performed on 05/05/23 and read as benign. Her breast exam today was stable, compared to recent ultrasound results and without any new worrisome findings. Plan: 1. Screening mammogram, later today 2. Screening ultrasound, due 04/2024 3. Return to clinic in 12 months for clinical breast exam 4. Encouraged patient to practice breast awareness and report any changes or new concerns to our office. Patient was seen for 20 minutes and 15 minutes were spent in face to face counseling regarding personal history of dense breast tissue. Screening plan was discussed as above. I was directly supervised by our clinic physician, Dr. Fajardo, who was in the suite and immediatelyavailable for the entire time for the above documented service was provided. Encounter Diagnoses Name Primary? Dense breast tissue on mammogram, unspecified type Yes [facility] PA-C No orders of the defined types were placed in this encounter. documented in this encounter Plan of Treatment Upcoming Encounters Date Type Department Care Team (Late st Contact Info) Description 03/21/2024 8:30 EDT Appointment [facility] Ultrasound [address] [place] [address] 04/17/2024 10:50 EDT Appointment [facility] Endoscopy - [address] [phone] Marcellus Walsh MD [address] [phone] 05/01/2024 13:30 EDT Appointment [facility] Breast Imaging - [address] [phone] 05/15/2024 15:00 EST Telemedicine [facility] Gastroenterology - [address] [phone] Madhu Park MD PhD [address] [phone] 12/10/2024 11:30 EDT Office Visit [facility] Surgical Oncology - [facility] [address] [place], [place] [phone] [facility] PA-C [address] [facility], [facility], Level [address] [place] [phone] documented as of this encounter Procedures Procedure Name Priority Date/Time Associated Diagnosis Comments ORDERS - SCANNED 02/15/2024 17:41 EDT documented in this encounter Results * ORDERS - SCANNED (02/15/2024 17:41 EDT) 02/15/2024 17:4 1 EDT Scan 2 Assistant Track Coach ADMISSION ORDERABLE S documented in this encounter Visit Diagnoses Diagnosis Dense breast tissue on mammogram, unspecified type- Primary documented in this encounter Care Teams Software Product Manager Relationship Specialty Start Date End Date Indy Champion MD [address] [place] [address] PCP - General 04/15/15 documented as of this encounter
--- OUTSIDE RECORDS SUMMARY | 2024-03-20 21:35 | XMS_ITS | Encounter Summary ---
Author Organization [facility] Address [address] [place] [address] Care Team Providers Care Agency Owner Name Role Phone Indy Champion MD Primary Care Provider Reason for Referral * Radiology Services (Routine) - Closed Specialty Diagnoses / Procedures Referred By Dedra sampson Referred To Contact Diagnoses Encounter for screening mammogram for malignant neoplasm of breast Procedures MA BREAST SCREENING CINDY Indy Farr MD [facility] [place] [address] Referral ID Status Reason Start Date Expiration Date Visits Re quested Visits Authorized [id number] Closed 01/05/2021 1 1 Reason for Visit * Radiology Services (Routine) - Closed Specialty Diagnoses / Procedures Referred By Dedra sampson Referred To Contact Diagnoses Encounter for screening mammogram for malignant neoplasm of breast Procedures MA BREAST SCREENING CINDY Indy Farr MD [facility] [employer] [place] [phone] Referral ID Status Reason Start Date Expiration Date Visits Re quested Visits Authorized [id number] Closed 01/05/2021 1 1 Encounter Details Date Type Department Care Team (Latest Contact Info) Description 08/14/2021 14:28 EST - 08/14/2021 23:59 EST Hospital Encounter [facility] Mammography - [facility] [address] [place] [address] Encounter for screening mammogram for malignant neoplasm of breast Discharge Disposition: [...] Description 03/21/2024 8:30 EDT Appointment Karin Danielle [address] [address] 04/17/2024 10:50 EDT Appointment [facility] - [address] [phone] Marcellus Walsh MD [address] [place] [address] 5 [place] [phone] 05/01/2024 13:30 EDT Appointment [facility] - [address] [phone] 05/15/2024 15:00 EST Telemedicine [facility] - [address] [phone] Madhu Park MD PhD [address] [place] [phone] 12/10/2024 11:30 EDT Office Visit [facility] - [address] [phone] [facility] PA-C [address] [place] [address], [facility] 2 [place] [phone] documented as of this encounter Procedures Procedure Name Priority Date/Time Associated Diagnosis Comments MA BREAST SCREENING CINDY BILATERAL Routine 08/14/2021 14:59 EST Encounter for screening mammogram for malignant neoplasm of breast documented in this encounter Results * MA BREAST SCREENING CINDY BILATERAL (08/14/2021 14:59 EST) Anatomical Region Laterality Modality Breast Bilateral Mammography 08/14/2021 15:1 3 EST Impressions 08/14/2021 15:13 EST Negative, no evidence of malignancy. RECOMMENDATION: Routine screening mammography is recommended. Given the extreme breast density, we recommend annual screening mammography and supplemental screening breast ultrasound. OVERALL ASSESSMENT: BI-RADS 1: Negative These results will be communicated to your patient via a lay letter from Radiology. If any additional imaging is needed we will contact your patient directly. Narrative 08/14/2021 15:13 EST MA BREAST SCREENING CINDY BILATERAL ??08/14/2021 2:30 PM History: Routine Comparison: ??Comparison has been made to previous images. Technique: Routine 3D tomosynthesis with synthesized 2D views with CAD Bilateral Breast Composition: The breast tissue is extremely dense, which lowers the sensitivity of mammography. Bilateral Breast Findings: ??No significant masses, calcifications or other abnormalities are seen. Procedure Note Maeve Pablo MD - 08/14/2021 MA BREAST SCREENING CINDY BILATERAL 08/14/2021 2:30 PM History: Routine Comparison: Comparison has been made to previous images. Technique: Routine 3D tomosynthesis with synthesized 2D views with CAD Bilateral Breast Composition: The breast tissue is extremely dense, whichlowers the sensitivity of mammography. Bilateral Breast Findings: No significant masses, calcifications or otherabnormalities are seen. IMPRESSION Negative, no evidence of malignancy. RECOMMENDATION: Routine screening mammography is recommended. Given the extreme breast density, we recommend annual screeningmammography and supplemental screening breast ultrasound. OVERALL ASSESSMENT: BI-RADS 1: Negative These results will be communicated to your patient via a lay letter fromRadiology. If any additional imaging is needed we will contact yourpatient directly. Indy Champion MD IMG MAMMOGRAPHY ORDERABLES documented in this encounter Visit Diagnoses Diagnosis Encounter for screening mammogram for malignant neoplasm of breast Other screening mammogram documented in this encounter Care Teams Agency Owner Relationship Specialty Start Date End Date Indy Champion MD [address] [place] [address] PCP - General 04/15/15 documented as of this encounter
--- OUTSIDE RECORDS SUMMARY | 2024-03-20 21:35 | XMS_ITS | Encounter Summary ---
Author Organization [facility] Address [address] [place] [address] Care Team Providers Care Mechanical Project Engineer Name Role Phone Indy Champion MD Primary Care Provider Reason for Visit * Reason Onset Date Comments Complex Medical Problems 06/11/2021 Encounter Details Date Type Department Care Team (Late st Contact Info) Description 06/11/2021 Orders Only [facility] Surgical Oncology - [address] [address] [facility], PA-C [address] [place] [address], Level 2 [place] [phone] Dense breast tissue on mammogram [...] 8:30 EDT Appointment Karin Danielle Ultrasound [address] [place] [address] 04/17/2024 10:50 EDT Appointment [facility] Endoscopy - [address] [phone] Marcellus Walsh MD [address] [place] [phone] 05/01/2024 13:30 EDT Appointment [facility] Breast Imaging - [address] [phone] 05/15/2024 15:00 EST Telemedicine [facility] Gastroenterology - [address] 178001 Madhu Park MD PhD [address] [place] [phone] 12/10/2024 11:30 EDT Office Visit [facility] Surgical Oncology - [address] [phone] [facility] PA-C [address] [place] [address], [facility] 2 [place] [phone] documented as of this encounter Visit Diagnoses Diagnosis Dense breast tissue on mammogram- Primary documented in this encounter Care Teams Mechanical Project Engineer Relationship Specialty Start Date End Date Indy Champion MD [address] [place], [place] [address] PCP - General 10/6/15 documented as of this encounter
--- OUTSIDE RECORDS SUMMARY | 2024-03-20 21:35 | XMS_ITS | Encounter Summary ---
Author Organization [facility] Address [address] [place] [address] Care Team Providers Care Nurses' Registry Director Name Role Phone Indy Champion MD Primary Care Provider Reason for Referral * Radiology Services (Routine/Next Available) - Authorization Not Required Specialty Diagnoses / Procedures Referred By Dedra sampson Referred To Contact Diagnoses Encounter for screening mammogram for malignant neoplasm of breast Procedures MA BREAST SCREENING CINDY BILATERAL Indy Champion MD [facility] [place] [address] [facility] Referral ID Status Reason Start Date Expiration Date Visits Requested Visits Authorized [id number] Authorization Not Required 3 1 1 Reason for Visit * Radiology Services (Routine/Next Available) - Authorization Not Required Specialty Diagnoses / Procedures Referred By Dedra sampson Referred To Contact Diagnoses Encounter for screening mammogram for malignant neoplasm of breast Procedures MA BREAST SCREENING CINDY BILATERAL Indy Champion MD [address] [place] [address] [facility] Referral ID Status Reason Start Date Expiration Date Visits Requested Visits Authorized [id number] Authorization Not Required 3 1 1 Encounter Details Date Type Department Care Team (Latest Contact Info) Description 11/24/2023 13:49 EDT - 11/24/2023 23:59 EDT Hospital Encounter [facility] Center Breast Imaging Mammography - [facility] [address] [place] [address] Encounter for screening mammogram for malignant neoplasm [...] 8:30 EDT Appointment Karin Danielle Ultrasound [address] [place] [address] 04/17/2024 10:50 EDT Appointment [facility] Endoscopy - Main [place] [address] [place], [place] [address] Marcellus Walsh MD 111 [facility] 5 [place] [phone] 05/01/2024 13:30 EDT Appointment [facility] Breast Imaging - [facility] 1 [place], [place] [phone] 05/15/2024 15:00 EST Telemedicine [facility] Gastroenterology - [address] [phone] Madhu Park MD PhD [address] [place] [address] 5 [place] [phone] 12/10/2024 11:30 EDT Office Visit [facility] Surgical Oncology - [address] [phone] [facility] PA-C [address] [place] [address], [facility] 2 [place] [phone] documented as of this encounter Procedures Procedure Name Priority Date/Time Associated Diagnosis Comments MA BREAST SCREENING CINDY BILATERAL Routine 11/24/2023 15:20 EDT Encounter for screening mammogram for malignant neoplasm of breast documented in this encounter Results * MA BREAST SCREENING CINDY BILATERAL (11/24/2023 15:20 EDT) Anatomical Region Laterality Modality Breast Bilateral Mammography 11/25/2023 9:17 EDT Impressions 11/25/2023 9:17 EDT Negative, no evidence of malignancy. RECOMMENDATION: Routine screening mammography is recommended. Due to the patient's extremely dense breast tissue, we recommend supplemental screening breast ultrasound in addition to screening mammography. OVERALL ASSESSMENT: BI-RADS 1: Negative These results will be communicated to your patient via a lay letter from Radiology. If any additional imaging is needed we will contact your patient directly. [id number] Narrative 11/25/2023 9:17 EDT MA BREAST SCREENING CINDY BILATERAL ??11/24/2023 1:54 PM History: Screening;Z12.31:Encounter for screening mammogram for malignant neoplasm of breast Comparison: ??Comparison has been made to previous images . ? Technique: Routine 3D tomosynthesis with synthesized 2D views with CAD Breast Composition: The breast tissue is extremely dense, which lowers the sensitivity of mammography. Bilateral Breast Findings: ??No significant masses, calcifications or other abnormalities are seen. Resulting Agency Comment [id number] Procedure Note Carissa Kendall MD - 11/25/2023 MA BREAST SCREENING CINDY BILATERAL 11/24/2023 1:54 PM History: Screening;Z12.31:Encounter for screening mammogram for malignantneoplasm of breast Comparison: Comparison has been made to previous images . Technique: Routine 3D tomosynthesis with synthesized 2D views with CAD Breast Composition: The breast tissue is extremely dense, which lowers thesensitivity of mammography. Bilateral Breast Findings: No significant masses, calcifications or otherabnormalities are seen. IMPRESSION Negative, no evidence of malignancy. RECOMMENDATION: Routine screening mammography is recommended. Due to the patient's extremely dense breast tissue, we recommendsupplemental screening breast ultrasound in addition to screeningmammography. OVERALL ASSESSMENT: BI-RADS 1: Negative These results will be communicated to your patient via a lay letter fromRadiology. If any additional imaging is needed we will contact yourpatient directly. [id number] Indy Champion MD IMG MAMMOGRAPHY ORDERABLES documented in this encounter Visit Diagnoses Diagnosis Encounter for screening mammogram for malignant neoplasm of breast Other screening mammogram documented in this encounter Care Teams Nurses' Registry Director Relationship Specialty Start Date End Date Indy Champion MD [address] [place] [address] PCP - General 04/15/15 documented as of this encounter
--- OUTSIDE RECORDS SUMMARY | 2024-03-20 21:35 | XMS_ITS | Encounter Summary ---
Author Organization [facility] Address [address] [place] [address] Care Team Providers Care Painter Drum Name Role Phone Indy Champion MD Primary Care Provider Reason for Referral * Referral (Routine/Next Available) - Receiving Office to Obtain Authorization Specialty Diagnoses / Procedures Referred By [facility] t Referred To Contact General Surgery Diagnoses Special screening for malignant neoplasms, colon Procedures COLONOSCOPY Rocio Hendrix MD [address] [place] [address] [place] [address] Gen Surgery [address] [place] [address] Referral ID Status Reason Start Date Expiration Date Visits Requested Visits Authorized [id number] Receiving Office to Obtain Authorization 02/02/2024 1 1 Encounter Details Date Type Department Care Team (Latest Contact Info) Description 02/02/2024 Transcribe Orders [facility] Gastroenterology - Main [place] [address] [place], [place] [address] Rocio Hendrix MD [address] [place], [place] [id number] Special screening for malignant neoplasms, colon (Primary Dx) Social History Tobacco Use Types [...] 03/21/2024 8:30 EDT Appointment Karin Danielle Ultrasound [address] [place] [address] 04/17/2024 10:50 EDT Appointment [facility] Endoscopy - [address] [address] Marcellus Walsh MD [address] [place] [phone] 05/01/2024 13:30 EDT Appointment [facility] Breast Imaging - [address] [phone] 05/15/2024 15:00 EST Telemedicine [facility] Gastroenterology - [address] 844531 Madhu Park MD PhD [address] [place] [phone] 12/10/2024 11:30 EDT Office Visit [facility] Surgical Oncology - [address] [address] [facility] PA-C 111 [facility], Level 2 [place] [phone] Scheduled Orders Name Type Priority Associated Diagnoses Orde r Schedule COLONOSCOPY GI Routine Special screening for malignant neoplasms, colon Expected: 02/02/2024 (Approximate), Expires: 08/04/2025 documented as of this encounter Visit Diagnoses Diagnosis Special screening for malignant neoplasms, colon- Primary documented in this encounter Care Teams Painter Drum Relationship Specialty Start Date End Date Indy Champion MD [address] [place], [place] [address] PCP - General 04/15/15 documented as of this encounter
--- OUTSIDE RECORDS SUMMARY | 2024-03-20 21:35 | XMS_ITS | Encounter Summary ---
Author Organization [facility] Address [address] [place] [address] Care Team Providers Care Renewable Energy Trader Name Role Phone Indy Champion MD Primary Care Provider Encounter Details Date Type Department Care Team (Late st Contact Info) Description 02/15/2024 Lab Requisition [facility] Pathology & Laboratory Medicine - [address] [address] Outr Resulting Lab, Provider Social History Tobacco Use Types Packs/Day Years [...] Description 03/21/2024 8:30 EDT Appointment Karin Danielle [address] [place] [address] 04/17/2024 10:50 EDT Appointment [facility] Endoscopy - [address] [phone] Marcellus Walsh MD 111 [facility], [facility] 5 [place] [phone] 05/01/2024 13:30 EDT Appointment [facility] Breast Imaging - [facility] [address] [phone] 05/15/2024 15:00 EST Telemedicine [facility] Gastroenterology - [address] [phone] Madhu Park MD PhD [address] [place] [address], [facility] 5 [place] [phone] 12/10/2024 11:30 EDT Office Visit [facility] Surgical Oncology - [address] [phone] [facility] PAPrabhaC [address] [place] [address], [facility] 2 [place] [phone] documented as of this encounter Procedures Procedure Name Priority Date/Time Associated Diagnosis Comments ANTI NUCLEAR AB (REMY), IFA Routine 02/14/2024 14:10 EDT documented in this encounter Results * ANTI NUCLEAR AB (REMY), IFA (02/14/2024 14:10 EDT) REMY Interpretation Negative Negative 2023 14:25 EDT [facility] Comment:No titer performed, REMY Screen is negative. Blood VENOUS BLOOD / Unknown 02/14/2024 14:10 EDT 02/15/2024 17:13 EDT Narrative [facility] - 02/16/2024 14:25 EDT Results were obtained with the Keep Me CertifiedA Lite HEp-2 REMY Kit by indirect immunofluorescence. Provider Outr Resulting Lab IMMUNOLOGY A ND SEROLOGY ORDERABLES Performing Organization Address City/State/[facility] Co de Phone Number [facility] [address] [place], [place] [phone] documented in this encounter Visit Diagnoses Not on filedocumented in this encounter Care Teams Renewable Energy Trader Relationship Specialty Start Date End Date Indy Champion MD 7 [place] [address] PCP - General 04/15/15 documented as of this encounter
--- OUTSIDE RECORDS SUMMARY | 2024-03-20 21:35 | XMS_ITS | Encounter Summary ---
Author Organization [facility] Address [address] [place] [address] Care Team Providers Care Deputy Sheriff Chief Name Role Phone Indy Champion MD Primary Care Provider Reason for Visit * Reason Onset Date Comments Appointment Related 05/27/2023 Encounter Details Date Type Department Care Team (Late st Contact Info) Description 05/27/2023 Telephone [facility] Surgical Oncology - [address] [address]60[address] [facility], PA-C [address] [place] [address], Level 2 [place] [phone] Appointment Related Social History Tobacco [...] encounter Miscellaneous Notes * Telephone Encounter - Tasneem Mendoza - 05/27/2023 1008 EST Patient is asking to cancel andreschedule her appt with [facility], currently scheduled for 06/15/23 at 11:00 AM. Per patient, her appts have been moving forward and she usually sees [facility] 3-4 months after she has seen her PCP. Per patient, she say her PCP and had a breast exam yesterday, 05/27/23. Patient is asking to be rescheduled to anytime in September 2023 and asks that the appt be scheduled from 10:30 AM or later. Per patient, an appt can be scheduled for her and she will find it on her [employer] portal. If the appt does not work for her, she will contact this clinic to request rescheduling. Please reschedule the noted appt. documented in this encounter Plan of Treatment Upcoming Encounters Date Type Department Care Team (Late st Contact Info) Description 03/21/2024 8:30 EDT Appointment Karin Danielle Ultrasound 0 [place], [place] [phone] 04/17/2024 10:50 EDT Appointment [facility] Endoscopy - [address] [phone] Marcellus Walsh MD [address] [place] [address] 5 [place] [phone] 05/01/2024 13:30 EDT Appointment [facility] Breast Imaging - [address] 493011 05/15/2024 15:00 EST Telemedicine [facility] Gastroenterology - [address] 305551 Madhu Park MD PhD [address] [place] [address] 5 [place] [phone] 12/10/2024 11:30 EDT Office Visit [facility] Surgical Oncology - [facility] [address] [place], [place] [phone] [facility] PA-C 111 [facility], [facility] 2 [place] [phone] documented as of this encounter Visit Diagnoses Not on filedocumented in this encounter Care Teams Deputy Sheriff Chief Relationship Specialty Start Date End Date Indy Champion MD 7 [place] [address] PCP - General 04/15/15 documented as of this encounter
--- OUTSIDE RECORDS SUMMARY | 2024-03-20 21:35 | XMS_ITS | Encounter Summary ---
Author Organization [facility] Address [address] [place] [address] Care Team Providers Care Flavor Tank Tender Name Role Phone Indy Champion MD Primary Care Provider Reason for Visit * Reason Onset Date Comments Appointment Related 07/31/2021 Encounter Details Date Type Department Care Team (Late st Contact Info) Description 07/31/2021 [facility]phone [facility] [place] [address] Jessica Osorio Appointment Related Social History Tobacco Use Types [...] encounter Miscellaneous Notes * Telephone Encounter - Jessica Osorio - 07/31/2021 1204 EST Left message for patient to return call to breast imaging to schedule screening ultrasound. Call back number [phone] documented in this encounter Plan of Treatment Upcoming Encounters Date Type Department Care Team (Late st Contact Info) Description 03/21/2024 8:30 EDT Appointment Karin Danielle Ultrasound [address] [place], [place] [address] 04/17/2024 10:50 EDT Appointment [facility] Endoscopy - [address] [phone] Marcellus Walsh MD [address] [place] [phone] 05/01/2024 13:30 EDT Appointment [facility] Breast Imaging - [address] 311[address] 05/15/2024 15:00 EST Telemedicine [facility] Gastroenterology - [address] [phone] Madhu Park MD PhD [address] [place] [phone] 12/10/2024 11:30 EDT Office Visit [facility] Surgical Oncology - [address] [phone] [facility] PA-C [address] [place] [address], [facility] 2 [place] [phone] documented as of this encounter Visit Diagnoses Not on filedocumented in this encounter Care Teams Flavor Tank Tender Relationship Specialty Start Date End Date Indy Champion MD [address] [place] [address] PCP - General 04/15/15 documented as of this encounter
--- OUTSIDE RECORDS SUMMARY | 2024-03-20 21:35 | XMS_ITS | Encounter Summary ---
Author Organization [facility] Address [address] [place] [address] Care Team Providers Care Cold Storage Worker Name Role Phone Indy Champion MD Primary Care Provider Reason for Referral * Radiology Services (Routine/Next Available) - Authorization Not Required Specialty Diagnoses / Procedures [facility] Referred To Contact Diagnoses Dense breast tissue on mammogram, unspecified type Procedures US ABUS BREAST SCREENING BILATERAL US BREAST SCREENING ONLY BILATERAL [facility] PA-C [address] [place] [phone] [facility] Referral ID Status Reason Start Date Expiration Date Visits Requested Visits Authorized [id number] Authorization Not Required 11/24/2023 1 1 Reason for Visit * Reason Onset Date Comments Complex Medical Problems 11/24/2023 Encounter Details Date Type Department Care Team (Late st Contact Info) Description 11/24/2023 Orders Only [facility] Surgical Oncology - [address] [address] [facility] PA-C [address] [place] [phone] Dense breast tissue on mammogram, unspecified [...] 03/21/2024 8:30 EDT Appointment Karin Danielle Ultrasound [address] [place] [address] 04/17/2024 10:50 EDT Appointment [facility] Endoscopy - [address] [phone] Marcellus Walsh MD [address] [place] [phone] 05/01/2024 13:30 EDT Appointment [facility] Breast Imaging - [address] 359361 05/15/2024 15:00 EST Telemedicine [facility] Gastroenterology - [address] 024581 Madhu Park MD PhD [address] [place] [phone] 12/10/2024 11:30 EDT Office Visit [facility] Surgical Oncology - [facility] 111 [place], [place] 222161 [facility], PAJacques 111 [facility], Level 2 [place] [phone] Scheduled Orders Name Type Priority Associated Diagnoses Orde r Schedule US ABUS BREAST SCREENING BILATERAL Imaging Routine Dense Breast Tissue On Mammogram, Unspecified Type Expected: 05/06/2024, Expires: 05/26/2025 documented as of this encounter Visit Diagnoses Diagnosis Dense breast tissue on mammogram, unspecified type- Primary documented in this encounter Care Teams Cold Storage Worker Relationship Specialty Start Date End Date Indy Champion MD [address] [place] [address] PCP - General 04/15/15 documented as of this encounter
--- OUTSIDE RECORDS SUMMARY | 2024-03-20 21:35 | XMS_ITS | Encounter Summary ---
Author Organization [facility] Address [address] [place] [address] Care Team Providers Care Director Of Accreditation Name Role Phone Indy Champion MD Primary Care Provider Encounter Details Date Type Department Care Team (Late st Contact Info) Description 03/15/2024 Lab Requisition [facility] Pathology & Laboratory Medicine - [facility] [address] [place] [address] Lisa Prajapati [address] [place] [address] [place] [phone] Neoplasm of uncertain behavior of skin Social [...] 8:30 EDT Appointment Karin Danielle Ultrasound [address] [place], [place] [address] 04/17/2024 10:50 EDT Appointment [facility] Endoscopy - [address] [id number] Marcellus Walsh MD [address] [place] [phone] 05/01/2024 13:30 EDT Appointment [facility] Breast Imaging - [address] [phone] 05/15/2024 15:00 EST Telemedicine [facility] Gastroenterology - [address] [phone] Madhu Park MD PhD [address] [place] [phone] 12/10/2024 11:30 EDT Office Visit [facility] Surgical Oncology - [address] [phone] [facility] PAP[facility] [address] [place] [address], [facility] [address] [place] [phone] documented as of this encounter Procedures Procedure Name Priority Date/Time Associated Diagnosis Comments SURGICAL PATHOLOGY Today 03/14/2024 12 :28 EDT Neoplasm of uncertain behavior of skin documented in this encounter Results * SURGICAL PATHOLOGY (03/14/2024 12:28 EDT) Note to Patient The following pathology results have been interpreted by your pathologist and may be available to you before your health provider has had the opportunity to review them. Please allow time for your provider to receive these results and explore management options, if applicable. 03/16/2024 13:24 EDT [facility] Final Diagnosis A. SKIN OF FOREHEAD, LEFT LATERAL, SHAVE BIOPSY: - Basal cell carcinoma, superficial multicentric type. - Lesion extends to peripheral edge of biopsy specimen. 03/16/2024 13:24 T [facility] Attestation By the signature below, the attending physician certifies that they have 1) personally conducted a gross and/or microscopic examination of the described specimen(s), and/or personally interpreted the results of laboratory testing of the described specimen(s), and 2) personally rendered or confirmed the above diagnosis. 03/16/2024 13:24 [facility] at 1324 Clinical History Basal cell carcinoma vs inflammatory papule; clinical diagnosis code: D48.5 03/16/2024 13:24 T [facility] Gross Description A. Received in formalin labelled with proper patient identification (initials T, D) and left lateral forehead is a shave biopsy of irregular pearly brown skin (0.6 x 0.4 x 0.1 cm). The margin is inked blue, the specimen is bisected and entirely submitted in A1. Mar Ferguson 03/15/2024 11:38 03/16/2024 13:24 T [facility] Performing Lab [facility] 03/16/2024 13:24 T [facility] Scanned Images 03/16/2024 13:24 T [facility] Tissue SPECIMEN FROM SKIN / Unknown 03/14/2024 12:28 EDT 03/15/2024 8:06 EDT Lisa Prajapati PATHOLOGY ORDERABLES [facility] [address] [place] [address] documented in this encounter Visit Diagnoses Diagnosis Neoplasm of uncertain behavior of skin documented in this encounter Care Teams Director Of Accreditation Relationship Specialty Start Date End Date Indy Champion MD [address] [place] [address] PCP - General 04/15/15 documented as of this encounter
--- OUTSIDE RECORDS SUMMARY | 2024-03-20 21:35 | XMS_ITS | Encounter Summary ---
Author Organization [facility] Address [address] [place] [address] Care Team Providers Care Trim Technician Name Role Phone Indy Champion MD Primary Care Provider Reason for Referral * (Routine/Next Available) - Receiving Office to Obtain Authorization Specialty Diagnoses / Procedures Referred By Contac t Referred To Contact Procedures US OUTSIDE IMAGES BODY Imaging, External Referral ID Status Reason Start Date Expiration Date Visits Requested Visits Authorized [id number] Receiving Office to Obtain Authorization 03/02/2024 1 1 Reason for Visit * (Routine/Next Available) - Receiving Office to Obtain Authorization Specialty Diagnoses / Procedures Referred By Contac t Referred To Contact Procedures US OUTSIDE IMAGES BODY Imaging, External Referral ID Status Reason Start Date Expiration Date Visits Requested Visits Authorized [id number] Receiving Office to Obtain Authorization 03/02/2024 1 1 Encounter Details Date Type Department Care Team (Latest Contact Info) Description 02/28/2024 - 02/28/2024 23:59 EDT Hospital Encounter [facility] Secondary Reads [place] Discharge Disposition: Home or Self Care Social [...] 8:30 EDT Appointment Karin Danielle Ultrasound [address] [place] [address] 04/17/2024 10:50 EDT Appointment [facility] Endoscopy - [address] [address] Marcellus Walsh MD 111 [facility], Level [address] [place] [phone] 05/01/2024 13:30 EDT Appointment [facility] Breast Imaging - [facility] [address] [address] 05/15/2024 15:00 EST Telemedicine [facility] Gastroenterology - [address] [phone] Madhu Park MD PhD 111 [facility], [address] [place] [phone] 12/10/2024 11:30 EDT Office Visit [facility] Surgical Oncology - [facility] [address] [place], [place] [phone] [facility] PA-C 111 [facility], [address] [place] [phone] documented as of this encounter Procedures Procedure Name Priority Date/Time Associated Diagnosis Comments US OUTSIDE IMAGES BODY Routine 02/28/2024 15:40 EDT documented in this encounter Results * US OUTSIDE IMAGES BODY (02/28/2024 15:40 EDT) Narrative 03/02/2024 15:41 EDT This is a non-reportable exam. External Imaging IMG OTHER IMAGING OR DERABLES documented in this encounter Visit Diagnoses Not on filedocumented in this encounter Care Teams Trim Technician Relationship Specialty Start Date End Date Indy Champion MD [address] [place] [address] PCP - General 04/15/15 documented as of this encounter
--- OUTSIDE RECORDS SUMMARY | 2024-03-20 21:35 | XMS_ITS | Encounter Summary ---
Author Organization [facility] Address [address] [place] [address] Care Team Providers Care Flume Worker Name Role Phone Indy Champion MD Primary Care Provider Reason for Visit * Reason Onset Date Comments Appointment Related 12/16/2021 Encounter Details Date Type Department Care Team (Late st Contact Info) Description 12/16/20[facility] Mammography - [address] [address] Jenna Pinto Appointment Related Social History Tobacco Use Types [...] encounter Miscellaneous Notes * Telephone Encounter - Jenna Pinto - 12/16/2021 1334 EDT Spoke to patient to schedule a screening breast ultrasound. Patient now scheduled on 03/04/22 documented in this encounter Plan of Treatment Upcoming Encounters Date Type Department Care Team (Late st Contact Info) Description 03/21/2024 8:30 EDT Appointment Karin Danielle Ultrasound [address] [place] [address] 04/17/2024 10:50 EDT Appointment [facility] Endoscopy - [address] [phone] Marcellus Walsh MD [address] [place] [address] [phone] 05/01/2024 13:30 EDT Appointment [facility] Breast Imaging - [address] [phone] 05/15/2024 15:00 EST Telemedicine [facility] Gastroenterology - [address] 111441 Madhu Park MD PhD [address] [place] [address] [phone] 12/10/2024 11:30 EDT Office Visit [facility] Surgical Oncology - [address] [phone] [facility] PA-C [address] [place] [address], [facility] [address] [place] [phone] documented as of this encounter Visit Diagnoses Not on filedocumented in this encounter Care Teams Flume Worker Relationship Specialty Start Date End Date Indy Champion MD [address] [place] [id number] PCP - General 04/15/15 documented as of this encounter
--- OUTSIDE RECORDS SUMMARY | 2024-03-20 21:35 | XMS_ITS | Encounter Summary ---
Author Organization [facility] Address [address] [place] [address] Care Team Providers Care Associate Entertainment Editor Name Role Phone Indy Champion MD Primary Care Provider Reason for Referral * Radiology Services (Routine/Next Available) - Authorization Not Required Specialty Diagnoses / Procedures Referred By Dedra sampson Referred To Contact Diagnoses Screening mammogram, encounter for Procedures MA BREAST SCREENING CINDY Indy Farr MD [facility] [place] [address] [facility] Referral ID Status Reason Start Date Expiration Date Visits Requested Visits Authorized [id number] Authorization Not Required 06/16/2022 1 1 Reason for Visit * Radiology Services (Routine/Next Available) - Authorization Not Required Specialty Diagnoses / Procedures Referred By Dedra sampson Referred To Contact Diagnoses Screening mammogram, encounter for Procedures MA BREAST SCREENING CINDY Indy Farr MD [facility] [place] [address] [facility] Referral ID Status Reason Start Date Expiration Date Visits Requested Visits Authorized [id number] Authorization Not Required 06/16/2022 1 1 Encounter Details Date Type Department Care Team (Latest Contact Info) Description 11/17/2022 11:12 EDT - 11/17/2022 23:59 EDT [facility] Mammography - [address] [address] Screening mammogram, encounter for Discharge Disposition: Home or Self Care Social [...] 8:30 EDT Appointment Karin Danielle Ultrasound [address] [place] [address] 04/17/2024 10:50 EDT Appointment [facility] Endoscopy - Main [address] [address] Marcellus Roque MD 111 [facility], [facility] 5 [place] [phone] 05/01/2024 13:30 EDT Appointment [facility] Breast Imaging - [facility] [address] [place] [address] [place], [place] [phone] 05/15/2024 15:00 EST Telemedicine [facility] Gastroenterology - [address] [phone] Madhu Park MD PhD [address] [place] [address] 5 [place] [phone] 12/10/2024 11:30 EDT Office Visit [facility] Surgical Oncology - [address] [phone] [facility] PA-C [address] [place] [address], Level [address] [place] [phone] documented as of this encounter Procedures Procedure Name Priority Date/Time Associated Diagnosis Comments MA BREAST SCREENING CINDY BILATERAL Routine 11/17/2022 11:27 EDT Screening mammogram, encounter for documented in this encounter Results * MA BREAST SCREENING CINDY BILATERAL (11/17/2022 11:27 EDT) Anatomical Region Laterality Modality Breast Bilateral Mammography 11/17/2022 11:5 6 EDT Impressions 11/17/2022 11:56 EDT Negative, no evidence of malignancy. RECOMMENDATION: Routine screening mammography is recommended. Given the extreme breast density, supplemental whole breast screening ultrasound should be considered, in addition to annual mammography OVERALL ASSESSMENT: BI-RADS 1: Negative These results will be communicated to your patient via a lay letter from Radiology. If any additional imaging is needed we will contact your patient directly. Narrative 11/17/2022 11:56 EDT MA BREAST SCREENING CINDY BILATERAL ??11/17/2022 11:30 AM History: routine Comparison: ??Comparison has been made to previous images. Technique: Routine 3D tomosynthesis with synthesized 2D views with CAD Breast Composition: The breast tissue is extremely dense, which lowers the sensitivity of mammography. Bilateral Breast Findings: ??No significant masses, calcifications or other abnormalities are seen. Procedure Note Maeve Pablo MD - 11/17/2022 MA BREAST SCREENING CINDY BILATERAL 11/17/2022 11:30 AM History: routine Comparison: Comparison has been made to previous images. Technique: Routine 3D tomosynthesis with synthesized 2D views with CAD Breast Composition: The breast tissue is extremely dense, which lowers thesensitivity of mammography. Bilateral Breast Findings: No significant masses, calcifications or otherabnormalities are seen. IMPRESSION Negative, no evidence of malignancy. RECOMMENDATION: Routine screening mammography is recommended. Given the extreme breast density, supplemental whole breast screeningultrasound should be considered, in addition to annual mammography OVERALL ASSESSMENT: BI-RADS 1: Negative These results will be communicated to your patient via a lay letter fromRadiology. If any additional imaging is needed we will contact yourpatient directly. Indy Champion MD IMG MAMMOGRAPHY ORDERABLES documented in this encounter Visit Diagnoses Diagnosis Screening mammogram, encounter for documented in this encounter Care Teams Associate Entertainment Editor Relationship Specialty Start Date End Date Indy Champion MD [address] [place] [address] PCP - General 04/15/15 documented as of this encounter
--- OUTSIDE RECORDS SUMMARY | 2024-03-20 21:35 | XMS_ITS | Encounter Summary ---
Author Organization [facility] Address [address] [place] [address] Care Team Providers Care Quill Stripper Name Role Phone Indy Champion MD Primary Care Provider Reason for Visit * Reason Comments Follow-up Encounter Details Date Type Department Care Team (Late st Contact Info) Description 06/11/2021 15:00 EST Office Visit [facility] Surgical Oncology - [address] [phone] [facility] [address] [place] [address], [address] [place] [phone] Dense breast tissue on mammogram [...] Sign Reading Time Taken Comments Blood Pressure 117/57 06/11/2021 1458 EST Pulse 59 06/11/2021 1458 EST Temperature 36.2 ??C (97.1 ??F) 06/11/2021 1458 EST Respiratory Rate 12 06/11/2021 1458 EST Oxygen Saturation - - Inhaled Oxygen Concentration [...] Progress Notes * [facility] PA-C - 06/11/2021 1500 EST Subjective: Patient ID: Sandhya Lomas is an 60 y.o. y.o. female Chief Complaint: Chief Complaint Patient presents with ??? Follow-up HPI: Division of Surgical Oncology- Breast [facility] PROGRESS NOTE/FOLLOW UP- 06/11/2021 PROBLEM: ?? 1. ??Dense breast tissue 2. ??S/p 11/03/16 ultrasound-guided left breast biopsy. ??Pathology was benign and concordant showing fibrocystic changes including papillary apocrine hyperplasia and dense interlobular fibrosis SUBJECTIVE: Sandhya Lomas is a 60 year old female who returns to the clinic for her clinical breast exam. ??Josh established care in our clinic previously due to her personal history of dense breast tissue. Screening continues to include annual mammography, screening ultrasounds (due to breast density) andclinical breast exams. She does not have any concerns today with respect to her breasts. She deniesany masses, skin changes or nipple discharge. She denies any changes to her health or her family history since her last visit here. ?? STRATEGIC SOLUTIONS CONSULTANT HISTORY:? Menarche at age 14. ??. ??First delivery at age 36. ?? SOCIAL HISTORY: , lives in [place].?One??of her sons lives in [place] and the other is in [place]. ? FAMILY HISTORY: No family history of [...] MOHS SURGERY 11/2009 basal cell carcinoma, right bahai Family History Problem Relation Age of Onset ??? Cancer Mother 68 lung ??? Diabetes Father ??? Cancer Maternal Aunt 58 lungs/p smoking ??? Cancer Maternal Uncle 60 lungs/p smoking ??? Rheumatologic Disease Paternal Grandmother lupus Social History Tobacco Use ??? Smoking status: Never Smoker ??? Smokeless tobacco: Never Used Substance Use Topics ??? Alcohol use: Yes [...] for this visit. No Known Allergies BP 117/57 Pulse 59 Temp 36.2 ??C (97.1 ??F) (Tympanic) Resp 12 Review of Systems: Constitutional: Negative for chills, [...] examined in the seated and the supine position.??Breasts are symmetric, pendulous. ??Dense breast tissue noted in bilateral breasts. In the right breast at 730-8:00, 4 cm from nipple there is some nodularity (most recent ultrasound in February 2021 revealed a stable appearance of a biloped mass).??There are no discrete or obvious palpable abnormalities in either breast. There is no skin puckering, dimpling, ??nipple inversion/change, or nipple discharge. There are no concerning skin changes.??There are no axillary masses Abdominal: Soft, no tenderness Lymphadenopathy: She has no cervical, supraclavicular or axillary adenopathy. Neurological: She is alert and oriented x3, Coordination is normal Skin: Skin is warm and dry. No rash is present. No erythema or pallor is present. Psychiatric: Patient has normal mood and affect. Her behavior is normal. Vital signs have been reviewed. MA BREAST SCREENING CINDY BILATERAL 08/13/2020 11:00 AM History: routine Comparison: Comparison has been [...] to the patient's extremely dense breast tissue, consideration should be given to supplemental screening breast ultrasound in addition to screening mammography. OVERALL ASSESSMENT: BI-RADS 1: Negative US ABUS BREAST SCREENING BILATERAL 03/06/2021 3:00 PM Clinical History/Comments: Screening. Dense breast tissue seen on mammo Comparisons: Mammography most recently performed in August 2020. Comparison is also made to hand-held screening ultrasound in February 2020 and two automated screening ultrasound in November 2018. Technique: 3-D automated breast ultrasound was performed using the 6-15 MHz 10Six [employer] ABUS device. All 4 quadrants and the subareolar regions were examined. These images and multiplanar reformats were reviewedon a dedicated workstation. Findings Right Breast: Background echotexture: Heterogeneous background echotexture No suspicious ultrasound findings are identified. There is stable appearance of a bilobed mass at 7:30 to 8:00, 4 cm from the nipple. Findings Left Breast: Background echotexture: Heterogeneous background echotexture No suspicious ultrasound findings are identified. Impression Right Breast: Benign, BI-RADS Category 2. Impression Left Breast: Negative, BI-RADS Category 1. Recommendation Bilateral Breasts: No specific sonographic evidence of malignancy in either breast. Annual screening mammography is recommended, which is next due in August 2021. Additionally, if ongoing supplemental whole breast screening ultrasound is desired, this could next be performed in February 2022. Overall Assessment: BI-RADS Category Assessment 2: Benign Findings. Assessment: Anne continues to follow in our clinic due to her personal history of dense fibrocystic breasts. ??Screening has included annual mammography, screening ultrasounds (due to breast density) and clinical breast exams. Patient most recently had a screening mammogram on 08/13/2020 which was read as negative. Her breast tissue was noted to be extremely dense. We did discuss continuing to supplement her annual mammogram with a screening ultrasound due to her dense breast tissue. Her most recent screening ultrasound was performed on 03/06/2021 which was read as benign. Her breast exam today was stable and did not reveal any new concerning findings this was compared to her most recent screening ultrasound. Plan: 1. Screening mammogram, scheduled 08/14/21 2. Schedule screening ultrasound, due 02/2022 3. Return to clinic in 12 months for clinical breast exam. Patient can see her PCP or her STRATEGIC SOLUTIONS CONSULTANT in 6 months for an additional clinical [...] 8:30 EDT Appointment [facility]tras[facility] [address] [place] [address] 04/17/2024 10:50 EDT Appointment [facility] Endoscopy - [address] [phone] Marcellus Walsh MD [address] [place] [address] 5 [place] [phone] 05/01/2024 13:30 EDT Appointment [facility] Breast Imaging - [address] [phone] 05/15/2024 15:00 EST Telemedicine [facility] Gastroenterology - [address] [phone] Madhu Park MD PhD [address] [place] [phone] 12/10/2024 11:30 EDT Office Visit [facility] Surgical Oncology - [address] [phone] [facility] PA-C [address] [place] [address], [facility] 2 [place] [phone] documented as of this encounter Procedures Procedure Name Priority Date/Time Associated Diagnosis Comments ORDERS - SCANNED 12/23/2021 7:05 EDT documented in this encounter Results * ORDERS - SCANNED (12/23/2021 7:05 EDT) 12/23/2021 7:05 EDT Scan 2 Teacher Associate ADMISSION ORDERABLE S documented in this encounter Visit Diagnoses Diagnosis Dense breast tissue on mammogram- Primary documented in this encounter Historical Medications * This list may reflect changes made after this encounter. Medication Sig Dispensed Refills Start Date End Date CHOLECALCIFEROL, VITAMIN D3, ORAL Take by mouth. added in this encounter Care Teams Quill Stripper Relationship Specialty Start Date End Date Indy Champion MD [address] [place] [address] PCP - General 04/15/15 documented as of this encounter
--- OUTSIDE RECORDS SUMMARY | 2024-03-20 21:35 | XMS_ITS | Encounter Summary ---
Author Organization [facility] Address [address] [place] [address] Care Team Providers Care Customer Sales Distributor Name Role Phone Indy Champion MD Primary Care Provider Reason for Referral * Radiology Services (Routine/Next Available) - Authorization Not Required Specialty Diagnoses / Procedures Referred By Dedra t Referred To Contact Diagnoses Dense breast tissue on mammogram Encounter for other screening for malignant neoplasm of breast Procedures US ABUS BREAST SCREENING BILATERAL US BREAST SCREENING ONLY BILATERAL [facility] PA-C [address] [phone] [facility] Referral ID Status Reason Start Date Expiration Date Visits Requested Visits Authorized [id number] Authorization Not Required 06/11/2021 1 1 Reason for Visit * Radiology Services (Routine/Next Available) - Authorization Not Required Specialty Diagnoses / Procedures Referred By Dedra sampson Referred To Contact Diagnoses Dense breast tissue on mammogram Encounter for other screening for malignant neoplasm of breast Procedures US ABUS BREAST SCREENING BILATERAL US BREAST SCREENING ONLY BILATERAL [facility] PA-C [address] [place] [phone] [facility] Referral ID Status Reason Start Date Expiration Date Visits Requested Visits Authorized [id number] Authorization Not Required 06/11/2021 1 1 Encounter Details Date Type Department Care Team (Latest Contact Info) Description 03/04/2022 10:21 EDT - 03/04/2022 23:59 EDT Hospital Encounter [facility] Breast Imaging - [facility] [address] [place] [address] Dense breast tissue on mammogram; Encounter for [...] Code Departure Means Destination Home or Self Fdc documented in this encounter Plan of Treatment Upcoming Encounters Date Type Department Care Team (Late st Contact Info) Description 03/21/2024 8:30 EDT Appointment Karin Danielle Ultrasound [address] [place] [address] 04/17/2024 10:50 EDT Appointment [facility] Endoscopy - [address] [phone] Marcellus Walsh MD [address] [place] [address] 5 [place] [phone] 05/01/2024 13:30 EDT Appointment [facility] Breast Imaging - [address] 790951 05/15/2024 15:00 EST Telemedicine [facility] Gastroenterology - [address] [phone] Madhu Park MD PhD [address] [place] [address] 5 [place] [phone] 12/10/2024 11:30 EDT Office Visit [facility] Surgical Oncology - [address] [phone] [facility] PA-C [address] [place] [address], [facility] 2 [place] [phone] documented as of this encounter Procedures Procedure Name Priority Date/Time Associated Diagnosis Comments US ABUS BREAST SCREENING BILATERAL Routine 03/04/2022 11:28 EDT Dense breast tissue on mammogram Encounter for other screening for malignant neoplasm of breast documented in this encounter Results * US ABUS BREAST SCREENING BILATERAL (03/04/2022 11:28 EDT) Anatomical Region Laterality Modality Breast Bilateral Ultrasound 03/05/2022 8:18 EDT Narrative 03/05/2022 8:18 EDT US ABUS BREAST SCREENING BILATERAL ??03/04/2022 10:45 AM Clinical History/Comments: Screening. dense breast tissue on mammogram Comparisons: Mammography most recently performed in August 2021, prior automated breast ultrasound screening in February 2021 and November 2018 and prior hand-held ultrasound screening in February 2020 and October 2017. Technique: 3-D automated breast ultrasound was performed using the 6-15 MHz GE Invenia ABUS device. All 4 quadrants and the [...] Assessment: BI-RADS Category Assessment 2: Benign Findings. The patient will be notified of her breast imaging results via a lay letter from Radiology. ??Radiology will contact the patient directly regarding any findings which require additional imaging. [facility] VARGAS US ORDERABL ES documented in this encounter Visit Diagnoses Diagnosis Dense breast tissue on mammogram Encounter for other screening for malignant neoplasm of breast documented in this encounter Care Teams Customer Sales Distributor Relationship Specialty Start Date End Date Indy Champion MD [address] [place] [address] PCP - General 04/15/15 documented as of this encounter
--- OUTSIDE RECORDS SUMMARY | 2024-03-20 21:35 | XMS_ITS | Encounter Summary ---
Author Organization [facility] Address [address] [place] [address] Care Team Providers Care Correspondence Dictator Name Role Phone Indy Champion MD Primary Care Provider Encounter Details Date Type Department Care Team (Late st Contact Info) Description 02/15/2024 Lab Requisition [facility] Pathology & Laboratory Medicine - [address] [address] Outr Resulting Lab, Provider Social History Tobacco [...] Description 03/21/2024 8:30 EDT Appointment Karin Shashi [address] [place] [address] 04/17/2024 10:50 EDT Appointment [facility] Endoscopy - [address] 978351 Marcellus Walsh MD 111 [facility], [facility] 5 [place] [phone] 05/01/2024 13:30 EDT Appointment [facility] Breast Imaging - [address] [phone] 05/15/2024 15:00 EST Telemedicine [facility] Gastroenterology - [address] [phone] Madhu Park MD PhD [address] [place] [address], [facility] 5 [place] [phone] 12/10/2024 11:30 EDT Office Visit [facility] Surgical Oncology - [address] [phone] [facility], PAPrabhaC [address] [place] [address], Level 2 [place] [phone] documented as of this encounter Procedures Procedure Name Priority Date/Time Associated Diagnosis Comments HOLD SST Today 02/14/2024 14:10 EDT HEPATITIS C AB W REFLEX TO HCV RNA BY PCR Today 02/14/2024 14:10 EDT HEPATITIS B SURFACE ANTIGEN Today 02/14/2024 14:10 EDT documented in this encounter Results * HOLD SST (02/14/2024 14:10 EDT) Hold Hold 02/15/2024 18:15 EDT [facility] Blood VENOUS BLOOD / Unknown 02/14/2024 14:10 EDT 02/15/2024 17:12 EDT Provider Outr Resulting Lab LAB INFO SER VICE AND SUPPORT & PHONE RESULT Performing Organization Address [facility] Co de Phone Number [facility] [address] [place], [place] [phone] * HEPATITIS B SURFACE ANTIGEN (02/14/2024 14:10 EDT) Hep B Surface Ag Negative Negative 02/16/2024 9:05 EDT [facility] Blood VENOUS BLOOD / Unknown 02/14/2024 14:10 EDT 02/15/2024 17:11 EDT Provider Outr Resulting Lab CHEMISTRY & BLOOD GAS ORDERABLES Performing Organization Address [facility] Co de Phone Number [facility] [address] [place], [place] [phone] * HEPATITIS C AB W REFLEX TO HCV RNA BY PCR (02/14/2024 14:10 EDT) Hep C Antibody Negative Negative 02/16/2024 8:55 EDT [facility] Blood VENOUS BLOOD / Unknown 02/14/2024 14:10 EDT 02/15/2024 17:11 EDT Provider Outr Resulting Lab CHEMISTRY & BLOOD GAS ORDERABLES Performing Organization Address [facility] Co de Phone Number [facility] [address] [place], [place] [phone] documented in this encounter Visit Diagnoses Not on filedocumented in this encounter Care Teams Correspondence Dictator Relationship Specialty Start Date End Date Indy Champion MD [address] [place] [address] PCP - General 04/15/15 documented as of this encounter
--- OUTSIDE RECORDS SUMMARY | 2024-03-20 21:36 | XMS_ITS | Encounter Summary ---
Author Organization [facility] Address [address] [place] [address] Care Team Providers Care Collection Development Librarian Name Role Phone Indy Champion MD Primary Care Provider Encounter Details Date Type Department Care Team (Latest Contact Info) Description 06/11/2020 Travel Social History Tobacco Use Types Packs/Day [...] have Coronavirus / COVID-19? No / Unsure 06/11/2020 11:31 EST documented as of this encounter Functional [...] Description 03/21/2024 8:30 EDT Appointment Karin Danielle [address] [address] 04/17/2024 10:50 EDT Appointment [facility] Endoscopy - [address] [phone] Marcellus Walsh MD [address] [place] [address], [facility] 5 [place] [phone] 05/01/2024 13:30 EDT Appointment [facility] Breast Imaging - [address] [phone] 05/15/2024 15:00 EST Telemedicine [facility] Gastroenterology - [address] [phone] Madhu Park MD PhD [address] [place] [address] 5 [place] [phone] 12/10/2024 11:30 EDT Office Visit [facility] Surgical Oncology - [address] [phone] [facility], PA-C [address] [place] [address], [facility] 2 [place] [phone] documented as of this encounter Visit Diagnoses Not on filedocumented in this encounter Care Teams Collection Development Librarian Relationship Specialty Start Date End Date Indy Champion MD [address] [place] [phone] PCP - General 04/15/15 documented as of this encounter
--- OUTSIDE RECORDS SUMMARY | 2024-03-20 21:36 | XMS_ITS | Encounter Summary ---
Author Organization [facility] Address [address] [place] [address] Care Team Providers Care Senior Support Analyst Name Role Phone Joselin Champion MD Primary Care Provider Encounter Details Date Type Department Care Team (Late st Contact Info) Description 12/14/2017 Results Only [facility]- [facility] [phone] Zacarias Santos MD [address] [place] [phone] Social History Tobacco Use Types Packs/Day Years Used Date Smoking Tobacco: Never Smokeless Tobacco: Never Alcohol Use Standard Drinks/Week Comments Yes 7 (1 standard drink = 0.6 oz pur e alcohol) 1 glass wine q evening Sex and Gender Information Value Date Recorded [...] Description 03/21/2024 8:30 EDT Appointment Karin Danielle [place] [phone] [place], [place] [address] 04/17/2024 10:50 EDT Appointment [facility] Endoscopy - [address] 277781 Marcellus Walsh MD [address] [place] [address] [address] [place] [phone] 05/01/2024 13:30 EDT Appointment [facility] Breast Imaging - [address] [phone] 05/15/2024 15:00 EST Telemedicine [facility] Gastroenterology - [address] [phone] Madhu Park MD PhD [address] [place] [phone] 12/10/2024 11:30 EDT Office Visit [facility] Surgical Oncology - [address] [phone] [facility], PA-C [address] [place] [address], [facility] 2 [place] [phone] documented as of this encounter Procedures Procedure Name Priority Date/Time Associated Diagnosis Comments PAP TEST- RESULT ONLY Routine 12/14/2017 0:00 EDT documented in this encounter Results * PAP TEST- RESULT ONLY (12/14/2017 0:00 EDT) Pathology Report: CYTOPATHOLOGY REPORT Reports generated via electronic interface contain original data; however they are lacking the format of the original report. Caution should be taken when reading/interpreti ng unformatted reports. Name: ? SANDHYA BARRETT ? Accession #: ? [id number] ? : ? 1960 (Age: 57) ??F ?Collect Date: ? 12/14/2017 ? Location: ? [facility] ? Receive Date: ? 12/15/2017 ? Provider: ZACARIAS SANTOS MD Copy to: JOSELIN CHAMPION MD ? Final Report SPECIMEN ADEQUACY ? Satisfactory for Evaluation - assessment of transformation zone component not applicable ( e.g. atrophy, vaginal sample, hysterectomy) GENERAL CATEGORIZATION ? Negative for Intraepithelial Lesion or Malignancy ?? Other: Additional clinical information: Z01.419, Z11.51, Z12.4 Specimen/Source: ??Pap Test, Cervix/Endocervix, ThinPrep Imaging System with manual evaluation Document reviewed and electronically signed by: ? SMITH Modi(ASCP) ? Report ??Date: 12/20/2017 11:32 HPV with Pap Test ? Date Ordered: ? 12/20/2017 ? Status: ?? Signed Out ?Date Complete: ? 12/21/2017 ? By: ??System Interface ? Date Reported: ? 12/21/2017 ? Interpretation RESULT: Negative for HPV. No E6 or E7 mRNA is detected from HPV types 16,18,31,33,35, 39,45,51,52,56,58, 59,66, and 68 by vp & general counsel mediated amplification. Comments Document reviewed and electronically signed by: ? System Interface ? Report date: 12/21/2017 By the signature above, the attending physician certifies that he/she has personally conducted a gross and/or microscopic examination of the described specimens and rendered or confirmed the above diagnosis. End of Report [facility] 12/14/2017 12/15/2017 Zacarias Santos MD PATHOLOGY ORDERABLES Performing Organization Address City/State/[facility] Co de Phone Number [facility] [address] [place] [address] documented in this encounter Visit Diagnoses Not on filedocumented in this encounter Care Teams Senior Support Analyst Relationship Specialty Start Date End Date Joselin Champion MD [address] [place] [address] PCP - General 04/15/15 documented as of this encounter
--- OUTSIDE RECORDS SUMMARY | 2024-03-20 21:36 | XMS_ITS | Encounter Summary ---
Author Organization [facility] Address [address] [place] [address] Care Team Providers Care Day Haul Youth Supervisor Name Role Phone Indy Champion MD Primary Care Provider Encounter Details Date Type Department Care Team (Late st Contact Info) Description 05/16/2019 7:03 EST Hospital Encounter [facility] [address] [place] [address] [facility], PA-C 111 [facility], Level [address] [place] [phone] Social History Tobacco Use Types Packs/Day Years [...] No 04/20/2017 documented as of this encounter Discharge Diagnoses Diagnosis Z12.31 Encounter for screening mammogram for malignant neoplasm of breast-Z12.31[ICD-10-CM] documented in this encounter Plan of Treatment Upcoming Encounters Date Type Department Care Team (Late st Contact Info) Description 03/21/2024 8:30 EDT Appointment Karin Danielle Ultrasound [address] [place] [address] 04/17/2024 10:50 EDT Appointment [facility] Endoscopy - [address] [phone] Marcellus Walsh MD [address] [place] [address] 5 [place] [phone] 05/01/2024 13:30 EDT Appointment [facility] Breast Imaging - [address] [phone] 05/15/2024 15:00 EST Telemedicine [facility] Gastroenterology - [address] [phone] Madhu Park MD PhD [address] [place] [address] 5 [place] [phone] 12/10/2024 11:30 EDT Office Visit [facility] Surgical Oncology - [address] [phone] [facility] PA-C [address] [place] [address], [facility] 2 [place] [phone] documented as of this encounter Visit Diagnoses Not on filedocumented in this encounter Care Teams Day Haul Youth Supervisor Relationship Specialty Start Date End Date Indy Champion MD [address] [place] [address] PCP - General 04/15/15 documented as of this encounter
--- OUTSIDE RECORDS SUMMARY | 2024-03-20 21:36 | XMS_ITS | Encounter Summary ---
Author Organization [facility] Address [address] [place] [address] Care Team Providers Care Integration Assistant Name Role Phone Indy Champion MD Primary Care Provider Reason for Visit * Reason Onset Date Comments Appointment Related 11/09/2016 Encounter Details Date Type Department Care Team (Late st Contact Info) Description 11/09/2016 Telephone [facility] Surgical Oncology - [facility] [address] [place], [place] [phone] Indy Stein PA-C [address] [place] [address], Level [address] [place] [phone] Appointment Related Social History Tobacco [...] visiting a doctor's office or shopping? No 04/15/2015 Cognitive Status Response Date of Assessm ent Because of a physical, menta l, or emotional condition, does this person have serious difficulty concentrating, remembering, or making decisions? No 04/15/2015 documented as of this encounter Miscellaneous Notes * Telephone Encounter - Santa Solomon - 11/09/2016 0954 EDT Benign biopsy results from 11/03/16 left breast biopsy. Pt notified of results 11/08/16. Establishedpt of Ernestina Alston for several years, next visit scheduled 04/20/17. Discussed with Ernestina Alston: fine to keep this scheduled as is. Called patient and left message 11/09/16; provided direct number for patient to return call for any questions. documented in this encounter Plan of Treatment Upcoming Encounters Date Type Department Care Team (Late st Contact Info) Description 03/21/2024 8:30 EDT Appointment Karin Danielle Ultrasound [address] [place], [place] [address] 04/17/2024 10:50 EDT Appointment [facility] Endoscopy - [address] [phone] Marcellus Walsh MD [address] [place] [address] 5 [place] [phone] 05/01/2024 13:30 EDT Appointment [facility] Breast Imaging - [address] [phone] 05/15/2024 15:00 EST Telemedicine [facility] Gastroenterology - [address] 767191 Madhu Park MD PhD [address] [place] [address] 5 [place] [phone] 12/10/2024 11:30 EDT Office Visit [facility] Surgical Oncology - [address] [phone] [facility] Blood PA-C [address] [place] [address], [facility] 2 [place] [phone] documented as of this encounter Visit Diagnoses Not on filedocumented in this encounter Care Teams Integration Assistant Relationship Specialty Start Date End Date Indy Champion MD [address] [place] [address] PCP - General 04/15/15 documented as of this encounter
--- OUTSIDE RECORDS SUMMARY | 2024-03-20 21:36 | XMS_ITS | Encounter Summary ---
Author Organization [facility] Address [address] [place] [address] Care Team Providers Care Computer Discovery Teacher Name Role Phone Indy Champion MD Primary Care Provider Reason for Visit * Reason Onset Date Comments Appointment Related 02/06/2021 Returning Call 02/09/2021 Encounter Details Date Type Department Care Team (Late st Contact Info) Description 02/06/2021 Telephone [facility] Surgical Oncology - [facility] [address] [place] [address] [facility], PA-C [address] [place] [address], Level [address] [place] [phone] Appointment Related; Returning Call Social History Tobacco Use Types Packs/Day Years [...] encounter Miscellaneous Notes * Telephone Encounter - Quinn Herr - 02/09/2021 1139 EDT Patient is returning call regarding an upcoming appt in June. Patient stated that she would notbe able to make the 8:30am time. Please call back to discuss. * Telephone Encounter - Lety Chacon - 02/06/2021 1118 EDT LVM for the patient, requesting that she give us a back to the [facility]. In my message I requested that we reschedule this patients f/u brck with [facility] from 06/10/2021 @ 11:00am to 8:30am Lety Chacon 02/06/2021 11:19 documented in this encounter Plan of Treatment Upcoming Encounters Date Type Department Care Team (Late st Contact Info) Description 03/21/2024 8:30 EDT Appointment Karin Danielle Ultrasound 0 [place] [address] 04/17/2024 10:50 EDT Appointment [facility] Endoscopy - [address] [phone] Marcellus Walsh MD [address] [place] [address], Level 5 [place] [phone] 05/01/2024 13:30 EDT Appointment [facility] Breast Imaging - [address] [phone] 05/15/2024 15:00 EST Telemedicine [facility] Gastroenterology - [address] [phone] Madhu Park MD PhD [address] [place], [place] [address], Level 5 [place] [phone] 12/10/2024 11:30 EDT Office Visit [facility] Surgical Oncology - [facility] [address] [place], [place] [phone] [facility] PAPrabhaC 111 [facility], [facility] 2 [place] [phone] documented as of this encounter Visit Diagnoses Not on filedocumented in this encounter Care Teams Computer Discovery Teacher Relationship Specialty Start Date End Date Indy Champion MD [address] [place] [address] PCP - General 04/15/15 documented as of this encounter
--- OUTSIDE RECORDS SUMMARY | 2024-03-20 21:36 | XMS_ITS | Encounter Summary ---
Author Organization [facility] Address [address] [place] [address] Care Team Providers Care Casing Worker Name Role Phone Indy Champion MD Primary Care Provider Reason for Referral * Radiology Services (Routine) - Closed Specialty Diagnoses / Procedures Referred By Dedra sampson Referred To Contact Diagnoses Dense breast tissue on mammogram Procedures US ABUS BREAST SCREENING BILATERAL US BREAST SCREENING ONLY BILATERAL [facility] PA-C [address] [place] [phone] Referral ID Status Reason Start Date Expiration Date Visits Re quested Visits Authorized [id number] Closed 08/22/2020 1 1 Reason for Visit * Radiology Services (Routine) - Closed Specialty Diagnoses / Procedures Referred By Dedra sampson Referred To Contact Diagnoses Dense breast tissue on mammogram Procedures US ABUS BREAST SCREENING BILATERAL US BREAST SCREENING ONLY BILATERAL [facility] PA-C [address] [place] [phone] Referral ID Status Reason Start Date Expiration Date Visits Re quested Visits Authorized [id number] Closed 08/22/2020 1 1 Encounter Details Date Type Department Care Team (Latest Contact Info) Description 03/06/2021 14:46 EDT - 03/06/2021 23:59 EDT Hospital Encounter [facility] Breast Imaging - [facility] [address] [place] [address] Dense breast tissue on mammogram Discharge Disposition: Home or Self Care Social [...] have Coronavirus / COVID-19? No / Unsure 03/06/2021 14:46 EDT documented as of this encounter Functional Status [...] times per day 1 Tube 1 04/21/2011 ibuprofen (ADVIL ORAL) Take by mouth. NIACINAMIDE [...] 03/21/2024 8:30 EDT Appointment [facility] [address] [place] [address] [place] [address] 04/17/2024 10:50 EDT Appointment [facility] Endoscopy - [address] [phone] Marcellus Walsh MD 111 [facility], [facility] [address] [place] [phone] 05/01/2024 13:30 EDT Appointment [facility] Breast Imaging - [address] [id number] 05/15/2024 15:00 EST Telemedicine [facility] Gastroenterology - [address] [phone] Madhu Park MD PhD [address] [place] [address], [facility] [address] [place] [phone] 12/10/2024 11:30 EDT Office Visit [facility] Surgical Oncology - [address] [phone] [facility] PAPrabhaC [address] [place] [address], [facility] [address] [place] [phone] documented as of this encounter Procedures Procedure Name Priority Date/Time Associated Diagnosis Comments US ABUS BREAST SCREENING BILATERAL Routine 03/06/2021 15:32 EDT Dense breast tissue on mammogram documented in this encounter Results * US ABUS BREAST SCREENING BILATERAL (03/06/2021 15:32 EDT) Anatomical Region Laterality Modality Breast Bilateral Ultrasound 03/09/2021 13:2 8 EDT Narrative 03/09/2021 13:28 EDT US ABUS BREAST SCREENING BILATERAL ??03/06/2021 3:00 PM Clinical History/Comments: Screening. Dense breast tissue seen on mammo Comparisons: Mammography most recently performed in August 2020. Comparison is also made to hand-held screening ultrasound in February 2020 and two automated screening ultrasound in November 2018. Technique: 3-D automated breast ultrasound was performed using the 6-15 MHz [employer] ABUS device. All 4 quadrants and the [...] Diagnoses Diagnosis Dense breast tissue on mammogram documented in this encounter Care Teams Casing Worker Relationship Specialty Start Date End Date Indy Champion MD [address] [place] [address] PCP - General 04/15/15 documented as of this encounter
--- OUTSIDE RECORDS SUMMARY | 2024-03-20 21:36 | XMS_ITS | Encounter Summary ---
Author Organization [facility] Address [address] [place] [address] Care Team Providers Care Fuel Cell Battery Technician Name Role Phone Indy Champion MD Primary Care Provider Reason for Visit * Reason Comments Other FB sensation in thro at * Consult (Routine) - Closed Specialty Diagnoses / Procedures Referred By Contac t Referred To Contact Otolaryngology Diagnoses Unspecified foreign body in pharynx causing other injury, initial encounter Indy Champion MD [address] [place] [address] Referral ID Status Reason Start Date Expiration Date V isits Requested Visits Authorized [id number] Closed Specialty Services Required 1 1 Encounter Details Date Type Department Care Team (Late st Contact Info) Description 11/23/2016 14:00 EDT Office Visit [facility] E[facility]- Main [address] [phone] Aga Cassidy MD 111 [facility], Level [address] [place] [phone] Foreign body sensation in throat (Primary Dx) Social History Tobacco Use Types [...] visiting a doctor's office or shopping? No 11/23/2016 Cognitive Status Response Date of Assessm ent Because of a physical, menta l, or emotional condition, does this person have serious difficulty concentrating, remembering, or making decisions? No 11/23/2016 documented as of this encounter Progress Notes * Aga Cassidy MD - 11/23/2016 1400 EDT Subjective: Patient ID: Sandhya Lomas is an 56 y.o. female. Chief Complaint Patient presents with ??? Other FB sensation in throat HPI Indy Cahmpion has requested that I see Sandhya Lomas in consultation regarding a foreign body sensation. She was eating fish on good Tuesday and felt like she swallowed a bone. Since then, she hashad right-sided discomfort both at rest and when swallowing. She thought it would go away but sinceit has not, she is seeking further evaluation. Patient Active Problem List Diagnosis ??? Basal cell carcinoma of skin ??? Inconclusive mammogram due to dense breasts ??? Diffuse cystic mastopathy Past Medical History: Diagnosis Date ??? Anemia resolved Iron deficiency anemia winter 2008 ??? Basal cell carcinoma ??? BCC (basal cell carcinoma), leg 12/11/2010 right vázquez ??? Complication of anesthesia difficulty waking from general anesthesia ??? Diffuse cystic mastopathy 12/01/2009 ??? S/P colonoscopy 03/2011 Norm. 10 yr f/u Past Surgical History: Procedure Laterality Date ??? ABDOMEN SURGERY 1988 dermoid cyst ??? SECTION 1995, 1997 ??? MOHS SURGERY 11/2009 basal cell carcinoma, right uatsdin Family History Problem Relation Age of Onset ??? Cancer Mother 68 lung ??? Diabetes Father ??? Cancer Maternal Aunt 58 lungs/p smoking ??? Cancer Maternal Uncle 60 lungs/p smoking ??? Rheumatologic Disease Paternal Grandmother lupus Social Social History Social History ??? Marital status: Spouse name: N/A ??? Number of children: N/A ??? Years of education: N/A Occupational History ??? Not on file. Social History Main Topics ??? Smoking status: Never Smoker ??? Smokeless tobacco: Never Used ??? Alcohol use 4.2 oz/week 7 Glasses of wine per week Comment: 1 glass wine q evening ??? Drug use: No ??? Sexual activity: Not on file Other Topics Concern ??? Not on file Social History Narrative Outpatient Prescriptions Marked as Taking for the 11/23/16 encounter (Office Visit) with Aga Cassidy MD Medication Sig Dispense Refill ??? acyclovir (ZOVIRAX) 5 % ointment Apply to lip at onset of tingling. Can three times per day 1 Tube 1 ??? VITAMIN E/FLAXSEED OIL (OMEGA-3 FLAXSEED OIL ORAL) Take 1 Tab by mouth daily. No Known Allergies Review of Systems Constitutional: Negative for chills, fever, malaise/fatigue and weight loss. HENT: Positive for sore throat. Negative for congestion, ear pain and hearing loss. Eyes: Negative for blurred vision, double vision and photophobia. Respiratory: Negative for cough, hemoptysis, shortness of breath and wheezing. Cardiovascular: Negative for chest pain, palpitations, claudication and leg swelling. Gastrointestinal: Negative for heartburn. Musculoskeletal: Negative for joint pain and myalgias. Skin: Negative for rash. Neurological: Negative for sensory change, focal weakness and headaches. Endo/Heme/Allergies: Negative for environmental allergies. Does not bruise/bleed easily. - See HPI Objective: There were no vitals taken for this visit. Physical Exam Department of Otolaryngology PHYSICAL EXAMINATION CONSTITUTIONAL: VITAL SIGNS: Not reviewed APPEARANCE: The patient appears alert, cooperative, and comfortable. ABILITY TO COMMUNICATE / VOICE: Normal HEAD AND FACE: INSPECTION: Normal without apparent scars, lesions, or masses. PALPATION: There are no masses or sinus tenderness. SALIVARY GLANDS: Submandibular and Parotid glands are normal bilaterally FACIAL STRENGTH: Intact and symmetrical bilaterally EXTERNAL EAR & NOSE: No external ear or nose deformity noted EYES: EYES: exam not performed EARS, NOSE, MOUTH AND THROAT: OTOSCOPY: Right external auditory canal: patent and non-inflamed Left external auditory canal: patent and non-inflamed Right tympanic membrane: intact without retraction, perforation or effusion Left tympanic membrane: intact without retraction, perforation or effusion WHISPER/TUNING FORK: Not assessed NOSE: Mild right septal deviation LIPS, TEETH & GUMS: normal for age ORAL CAVITY & OROPHARYNX: normal HYPOPHARYNX & PHARYNGEAL NICHOLS: Normal mirror exam, no pooling of secretions or lesions seen LARYNX: Unable to visualize because of overhanging epiglottis NASOPHARYNX: See flexible exam report NECK: GENERAL: Supple, no asymmetry or crepitus, trachea midline THYROID: Normal LYMPHATIC: CERVICAL LYMPH NODES: No pathologic cervical lymphadenopathy noted RESPIRATORY: LUNGS: Not examined CARDIOVASCULAR: CARDIOVASCULAR: Not examined NEUROLOGIC: NEUROLOGIC: Normal mood and affect Endoscopy Procedure Note Pre-procedure Diagnosis: Globus sensation Post-procedure Diagnosis: same Indications: unable to completely visualize on mirror exam Anesthesia: Cophenylcaine Endoscopy Type: Laryngoscopy using a flexible laryngoscope Procedure Details: With the patient sitting upright in the examining chair informed consent was obtained. The left nostril was topically anesthetized with spray. After waiting an appropriate period of time for anesthesia/ vasoconstriction to become effective (if this was applicable), the scope was passed into the left nostril and the nasopharynx, oropharynx, hypopharynx and larynx were examined. Condition: Patient tolerated procedure well and left the office in a stable condition. Complications: None Findings: Nasopharynx: Normal exam of choanae, eustachian tubes, and adenoids for age Oropharynx: Normal exam of tongue base, tonsils, and posterior pharynx Hypopharynx: Normal piriform sinuses noted, no pooling of secretions Larynx: Normal exam of supraglottis, true cords, with normal mucosa and normal vocal fold mobility Assessment: 56-year-old female with a foreign body sensation in the right throat after eating fish several weeks ago with no evidence of foreign body at this time. We discussed that this plans can be very small and hard to see sometimes. If her symptoms do not resolve in the next several weeks, she will returnfor reevaluation. Plan: As above Aga Cassidy MD documented in this encounter Plan of Treatment Upcoming Encounters Date Type Department Care Team (Late st Contact Info) Description 03/21/2024 8:30 EDT Appointment Karin Danielle [address] [address] 04/17/2024 10:50 EDT Appointment [facility] Endoscopy - [address] [phone] Marcellus Walsh MD [address] [place] [address] 5 [place] [phone] 05/01/2024 13:30 EDT Appointment [facility] Breast Imaging - [address] [phone] 05/15/2024 15:00 EST Telemedicine [facility] Gastroenterology - [address] [phone] Madhu Park MD PhD [address] [place] [phone] 12/10/2024 11:30 EDT Office Visit [facility] Surgical Oncology - [address] [phone] [facility], PA-C [address] [place] [address], [facility] [address] [place] [phone] documented as of this encounter Visit Diagnoses Diagnosis Foreign body sensation in throat- Primary Other symptoms involving head and neck documented in this encounter Care Teams Fuel Cell Battery Technician Relationship Specialty Start Date End Date Indy Champion MD [address] [place] [phone] PCP - General 04/15/15 documented as of this encounter
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
--- OUTSIDE RECORDS SUMMARY | 2024-03-20 21:36 | XMS_ITS | Encounter Summary ---
Author Organization [facility] Address [address] [place] [address] Care Team Providers Care Refrigeration Operator Name Role Phone Indy Champion MD Primary Care Provider Reason for Visit * Reason Comments Follow-up Encounter Details Date Type Department Care Team (Late st Contact Info) Description 04/25/2018 9:00 EDT Office Visit [facility] Surgical Oncology - [address] [id number] [facility] [address] [place] [address], [address] [place] [address] Diffuse cystic mastopathy of both breasts (Primary Dx) Social History Tobacco Use Types [...] Sign Reading Time Taken Comments Blood Pressure 141/67 04/25/2018 0855 EDT Pulse 56 04/25/2018 0855 EDT Temperature 36.1 ??C (97 ??F) 04/25/2018 0855 EDT Respiratory Rate - - Oxygen Saturation - - Inhaled Oxygen Concentration - - Weight - - Height - - Body Mass Index - - documented in this encounter Functional Status Functional Status Response Date of Assess ment Because of a physical, spencer steele, or emotional condition, does this person have difficulty doing errands alone such as visiting a doctor's office or shopping? No 04/20/2017 Cognitive Status Response Date of Assessm ent Because of a physical, menta l, or emotional condition, does this person have serious difficulty concentrating, remembering, or making decisions? No 04/20/2017 documented as of this encounter Progress Notes * [facility] - 04/25/2018 0900 EDT Subjective: Patient ID: Sandhya Lomas is an 57 y.o. y.o. female Chief Complaint: Chief Complaint Patient presents with ??? Follow-up HPI: Division of Surgical Oncology- [facility] PROGRESS NOTE/FOLLOW UP- 04/25/2018 PROBLEM: 1. Dense breast tissue 2. S/p 11/03/16 ultrasound-guided left breast biopsy. Pathology was benign and concordant showing fibrocystic changes including papillary apocrine hyperplasia and dense interlobular fibrosis SUBJECTIVE: Sandhya Lomas is a 57 year old female who returns to the clinic today for her high-risk screening breast exam. Patient established care in our clinic due to her personal history of dense fibrocysticbreast tissue. Patient has had one biopsy last year which was benign. Patient does not have any concerns today. She does practice breast awareness. She denies any pain, masses, skin changes or nippledischarge. She denies any changes to her health as well as her family's history since her last visit. Patient continues to be very active and enjoys doing yoga regularly. 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 . First delivery at age 36. SOCIAL HISTORY: , lives in [place]. Both of her children are in college. FAMILY HISTORY: No family history of breast [...] History: Procedure Laterality Date ??? ABDOMEN SURGERY 1987 dermoid cyst ??? SECTION 1995, 1997 ??? MOHS SURGERY 11/2009 basal cell carcinoma, right latter-day Family History Problem Relation Age of Onset ??? Cancer Mother 68 lung ??? Diabetes Father ??? Cancer Maternal Aunt 58 lungs/p smoking ??? Cancer Maternal Uncle 60 lungs/p smoking ??? Rheumatologic Disease Paternal Grandmother lupus Social History Substance Use Topics ??? Smoking status: Never Smoker ??? Smokeless tobacco: Never Used ??? Alcohol use 4.2 oz/week 7 Glasses of wine per week Comment: 1 glass wine q evening Current Outpatient Prescriptions: acyclovir (ZOVIRAX) 5 % ointment valacyclovir (VALTREX) 1 g tablet VITAMIN E/FLAXSEED OIL (OMEGA-3 FLAXSEED OIL ORAL) No current facility-administered medications for this visit. No Known Allergies BP 141/67 Pulse 56 Temp 36.1 ??C (97 ??F) (Tympanic) Review of Systems: Constitutional: Negative [...] signs are normal. She appears well-developed and well-nourished. No distress noted. Head: Normocephalic and atraumatic Eyes: Right eye exhibits no discharge. Left eye exhibits no discharge. No scleral icterus. Cardiovascular: Normal rate and regular rhythm. Pulmonary/Chest: Effort normal and breath sounds normal. No respiratory distress. She has no wheezes,rhonchi or rales. Breast Exam: Breasts and axilla are examined in the seated and the supine position.Diffuse dense breast tissue noted in bilateral breasts. There are no discrete or obvious palpable abnormalities in either breast. There is no skin puckering, dimpling, nipple inversion/change, or nipple discharge. There is no obvious discoloration of the breast. There are no axillary masses Abdominal: Soft, no tenderness Lymphadenopathy: She has no cervical, supraclavicular or axillary adenopathy. Neurological: She is alert and oriented x3 Skin: Skin is warm and dry. No rash is present. No erythema or pallor is present. Psychiatric: Patient has normal mood and affect. Her behavior is normal. Vital signs have been reviewed. Mammogram 04/25/18 PRELIMINARY REPORT Comparison has been made to previous images. Bilateral Breast Findings: (Routine 3D tomosynthesis with synthesized 2D views with CAD) The breasts are extremely dense (greater than 75% fibroglandular) which could obscure a lesion on mammography. No significant masses, calcifications or other abnormalities are seen. IMPRESSION: BILATERAL BREASTS: Negative, no evidence of malignancy. Normal interval follow-up is recommended in 12 months. Given the extreme breast density, we recommend annual screening mammography and supplemental screening breast ultrasound. OVERALL ASSESSMENT - CATEGORY 1 - NEGATIVE RAD US BREAST SCREENING ONLY BILATERAL 11/02/2017 9:32 AM Signs and Symptoms/Comments: N60.12-Diffuse cystic mastopathy of left ymswsr-PJI-11 N60.11-Diffuse cystic mastopathy of right artbru-VTQ-66; N60.11-Diffuse cystic mastopathy of right udowtn-MYJ-24 N60.12-Diffuse cystic mastopathy of left ucfazw-IQS-43; High risk, diffuse cystic mastopathy, dense breast tissue on mammogram, multiple nodularity both breast, screening Comparison: Correlation to most recent screening mammogram performed April 20, 2017. TECHNIQUE: Grayscale and color Doppler ultrasound was performed throughout the bilateral whole breast including all 4 quadrants and subareolar regions. Right breast ultrasound findings: The breast is composed of heterogeneous background echotexture. There is a stable circumscribed parallel hypoechoic mass at the 7 o'clock position of the right breast 4.5 cm from the nipple measuring 0.8 x 0.6 x 0.7 cm. Immediately adjacent also at the 7 o'clock position of the right breast 4.5 cm from the nipple there is an additional similar appearing stable circumscribed parallel hypoechoic mass measuring 0.5 x 0.4 x 0.5 cm. There are multiple scattered cysts, complicated cysts, and regions of clustered microcysts which are not viewed with concern. For example, at the 9 o'clock position of the right breast 5 cm from the nipple there is a complicated cyst measuring up to 0.5 cm. A morphologically benign-appearing intramammary lymph node is seen in the 9 o'clock position of the right breast 9 cm from the nipple without suspicious features. Left breast ultrasound findings: The breast is composed of heterogeneous background echotexture. At the 3 o'clock position of the left breast 6 cm from the nipple there is a stable circumscribed parallel hypoechoic 0.5 x 0.4 x 0.6 cm mass, previously described at the 4 o'clock position of the left breast 6 cm from the nipple. At the 10 o'clock position of the left breast 6 cm from the nipple there is a 0.4 cm hypoechoic mass which is markedly decreased in size November 03, 2016 following ultrasound-guided core needle biopsy of this region which yielded benign findings. At the 10 o'clock to 10:30 position of the left breast 5 cm from the nipple there is a 0.3 x 0.3 x 0.4 cm hypoechoic mass which appears morphologically similar to multiple additional probable complicated cysts in the left breast and in the contralateral right breast, and is therefore not viewed with concern. Right breast impression: BI-RADS 2: Benign. Left breast impression: BI-RADS 2: Benign. Recommendation: Routine screening mammography is recommended, next due April,. Supplemental screening breast ultrasound is also recommended, next due October,. Overall assessment: BI-RADS 2: Benign. Assessment: Sandhya continues to follow in our clinic due to her personal history of dense fibrocystic breast tissue. Screening to date has included annual mammography, HR screening ultrasounds (due to breast density) and clinical breast exams. Patient had a screening mammogram today. Preliminary results were read as Category 1- negative. Her breasts were noted to be extremely dense. I have suggested that we continue screening with a high risk screening ultrasound due to her extremely dense breasts. Patientwas agreeable with this. Her breast exam today was stable and without any concerning findings suggestive of malignancy. Plan: 1. Schedule screening mammogram 04/2019 2. Schedule HR screening ultrasound 10/2018 3. Return to clinic in 12 months for clinical breast exam. Patient can see her PCP or her BREAD AND PASTRY BAKER for an additional clinical breast exam in 6 months. 4. Encouraged patient to practice breast awareness and report any changes or new concerns to our office. I was directly supervised by our clinic physician, Dr. Milton, who was in the suite and immediatelyavailable for the entire time for the above documented service was provided. Encounter Diagnoses Name Primary? Diffuse cystic mastopathy of both breasts Yes URI Borjas No orders of the defined types were placed in this encounter. documented in this encounter Plan of Treatment Upcoming Encounters Date Type Department Care Team (Late st Contact Info) Description 03/21/2024 8:30 EDT Appointment [facility] [address] [place], [place] [phone] 04/17/2024 10:50 EDT Appointment [facility] Endoscopy - [address] [id number] Marcellus Walsh MD [address] [place] [phone] 05/01/2024 13:30 EDT Appointment [facility] Breast Imaging - [address] [id number] 05/15/2024 15:00 EST Telemedicine [facility] Gastroenterology - [address] [id number] Madhu Park MD PhD [address] [place] [address] [address] [place] [phone] 12/10/2024 11:30 EDT Office Visit [facility] Surgical Oncology - [address] [phone] [facility] [address] [place] [address], [facility] [address] [place] [phone] documented as of this encounter Procedures Procedure Name Priority Date/Time Associated Diagnosis Comments ORDERS - SCANNED 08/22/2018 7:05 EST documented in this encounter Results * ORDERS - SCANNED (08/22/2018 7:05 EST) 08/22/2018 7:05 EST Scan 2 Endo Tech ADMISSION ORDERABLE S documented in this encounter Visit Diagnoses Diagnosis Diffuse cystic mastopathy of both breasts- Primary documented in this encounter Care Teams Refrigeration Operator Relationship Specialty Start Date End Date Indy Champion MD [address] [place] [address] PCP - General 04/15/15 documented as of this encounter
--- OUTSIDE RECORDS SUMMARY | 2024-03-20 21:36 | XMS_ITS | Encounter Summary ---
Author Organization [facility] Address [address] [place] [address] Care Team Providers Care Packager Machine Name Role Phone Indy Champion MD Primary Care Provider Reason for Visit * Reason Comments Follow-up Encounter Details Date Type Department Care Team (Late st Contact Info) Description 05/24/2019 13:30 EST Office Visit [facility] Surgical Oncology - [address] [id number] [facility] [address] [place] [address], [address] 2 [place] [address] Dense breast tissue on mammogram [...] Sign Reading Time Taken Comments Blood Pressure 114/56 05/24/2019 1332 EST Pulse 68 05/24/2019 1332 EST Temperature 36.1 ??C (97 ??F) 05/24/2019 1332 EST Respiratory Rate - - Oxygen Saturation [...] Progress Notes * [facility] - 05/24/2019 1330 EST Subjective: Patient ID: Sandhya Lomas is an 58 y.o. y.o. female Chief Complaint: Chief Complaint Patient presents with ??? Follow-up HPI: Division of Surgical Oncology- Breast [facility] PROGRESS NOTE/FOLLOW UP- 05/24/2019 PROBLEM: 1. Dense breast tissue 2. S/p 11/03/16 ultrasound-guided left breast biopsy. Pathology was benign and concordant showing fibrocystic changes including papillary apocrine hyperplasia and dense interlobular fibrosis SUBJECTIVE: Sandhya Lomas is a 58 year old female who returns to the clinic for her clinical breast exam. Josh established care in our clinic previously due to her personal history of dense fibrocystic breast tissue. Screening has included annual mammography, screening ultrasounds and clinical breast exams. Patient does not have any concerns today with respect to her breasts. She denies any masses, skin changes or nipple discharge. Since her last visit, she has undergone Moh's surgery on 04/02/19 for basal cell carcinoma of the right rastafari. She otherwise denies any changes to her health or her familyhistory. TACKER ELASTIC BAND HISTORY: Menarche at age 14. . First delivery at age 36. ?? SOCIAL HISTORY: , lives in [place]. One of her children is in college in [place]. ? FAMILY HISTORY: No family history of breast and/or ovarian cancer. ?? Patient Active Problem List Diagnosis ??? Basal [...] MOHS SURGERY 11/2009 basal cell carcinoma, right rastafari Family History Problem Relation Age of Onset [...] wine q evening ??? Drug use: No Current Outpatient Medications: acyclovir (ZOVIRAX) 5 % ointment ibuprofen (ADVIL ORAL) NIACINAMIDE ORAL valacyclovir (VALTREX) 1 g tablet VITAMIN E/FLAXSEED OIL (OMEGA-3 FLAXSEED OIL ORAL) No current facility-administered medications for this visit. No Known Allergies BP 114/56 Pulse 68 Temp 36.1 ??C (97 ??F) (Tympanic) Review [...] is normal. Vital signs have been reviewed. Screening Mammogram 05/16/19 Comparison has been made to previous images. [...] ASSESSMENT - CATEGORY 1 - NEGATIVE RAD ABUS SCREENING BILAT 11/22/2018 2:37 PM Clinical History/Comments: N60.11-Diffuse cystic mastopathy of right ofsnia-HNQ-92 N60.12-Diffuse cystic mastopathy of left tssauu-VZN-07; High risk screening due to increased breast density on mammogram Comparisons: RAD ABUS SCREENING BILAT 11/22/2018 2:37 PM Clinical History/Comments: N60.11-Diffuse cystic mastopathy of right osktge-ILF-27 N60.12-Diffuse cystic mastopathy of left lkzuue-ALW-65; High risk screening due to increased breast density on mammogram Comparisons: Mammograms dated April 2018, April 2017, October 2016, April 2016, April 2015, April 2013, April 2012, March 2011. Screening whole breast ultrasound dated October 10, 2014, October 15, 2015, November 03, 2016, November 02, 2017. Technique: 3-D automated breast ultrasound was performed using the 6-15 MHz TuneCore InvGTxcel ABUS device. All 4 quadrants and the subareolar regions were examined. These images and multiplanar reformats were reviewed on a dedicated workstation. Findings Right Breast: Background echotexture: Heterogeneous background echotexture Multiple dilated ducts, some of which contain debris, are seen in the subareolar region. Areas of cystic change are present throughout the breast. Additionally, a stable appearing mass is present at 7-8 o'clock, approximately 2.5 to 5 cm from the nipple, which has been previously documented on multiple prior screening exams, and is not viewed with concern. No suspicious ultrasound findings are identified. Findings Left Breast: Background echotexture: Heterogeneous background echotexture Multiple dilated ducts, some of which contain debris, are seen in the subareolar region. Areas of cystic change are present throughout the breast. No suspicious ultrasound findings are identified. Impression Right Breast: BI-RADS 2: Benign. Impression Left Breast: BI-RADS 2: Benign. Recommendation Bilateral Breasts: No specific sonographic evidence of malignancy. Annual screening mammography is recommended, next due in April 2019. If ongoing supplemental whole breast screening ultrasound is desired, this could next be performed in November 2019. Overall Assessment: BI-RADS 2: Benign. Assessment: Anne continues to follow in our clinic due to her personal history of dense fibrocystic breasts. Screening has included annual mammography, screening ultrasounds (due to breast density) and clinicalbreast exams. Patient's most recent screening mammogram was performed on 05/16/19 which was read as Category 1-negative. Her breasts were noted to be extremely dense. We did discuss continuing to supplement her annual mammogram with a screening ultrasound due to her current density. Patient's most recent screening ultrasound was performed on 11/22/18 and read as BI-RADS 2-benign. Patient's breast exam today was stable and without any concerning findings. Patient has undergone Moh's surgery on 04/02/19 for basal cell carcinoma of the right rastafari. She isunsure about her follow up with Dermatology and was encouraged to reach out to their office to discuss this. Plan: 1. Schedule screening mammogram, due 05/2020 2. Schedule HR screening ultrasound, due 11/2019 3. Return to clinic in 12 months for clinical breast exam. Patient can see her PCP or her TACKER ELASTIC BAND in 6 months for an additional clinical breast exam. 4. Encouraged patient to practice breast awareness and report any changes or new concerns to our office. 5. Follow up with Dermatology I was directly supervised by our clinic physician, Dr. Milton, who was in the suite and immediatelyavailable for the entire time for the above documented service was provided. Encounter Diagnoses Name Primary? Dense breast tissue on mammogram Yes URI Denson No orders of the defined types were placed in this encounter. documented in this encounter Plan of Treatment Upcoming Encounters Date Type Department Care Team (Late st Contact Info) Description 03/21/2024 8:30 EDT Appointment [facility] [address] [place] [address] 04/17/2024 10:50 EDT Appointment [facility] Endoscopy - [address] [phone] Marcellus Walsh MD [address] [place] [phone] 05/01/2024 13:30 EDT Appointment [facility] Breast Imaging - [address] [id number] 05/15/2024 15:00 EST Telemedicine [facility] Gastroenterology - [address] [phone] Madhu Park MD PhD [address] [place] [phone] 12/10/2024 11:30 EDT Office Visit [facility] Surgical Oncology - [address] [phone] [facility] [address] [place] [address], [facility] [address] [place] [phone] documented as of this encounter Procedures Procedure Name Priority Date/Time Associated Diagnosis Comments ORDERS - SCANNED 09/11/2019 13:56 EST documented in this encounter Results * ORDERS - SCANNED (09/11/2019 13:56 EST) 09/11/2019 13:5 6 EST Scan 2 Television Presenter ADMISSION ORDERABLE S documented in this encounter Visit Diagnoses Diagnosis Dense breast tissue on mammogram- Primary documented in this encounter Historical Medications * This list may reflect changes made after this encounter. Medication Sig Dispensed Refills Start Date End Date ibuprofen (ADVIL ORAL) Take by mouth. added in this encounter Care Teams Packager Machine Relationship Specialty Start Date End Date Indy Champion MD [address] [place] [address] PCP - General 04/15/15 documented as of this encounter
--- OUTSIDE RECORDS SUMMARY | 2024-03-20 21:36 | XMS_ITS | Encounter Summary ---
Author Organization [facility] Address [address] [place] [address] Care Team Providers Care Auto Haulaway Driver Name Role Phone Indy Champion MD Primary Care Provider Reason for Visit * Reason Comments Basal Cell Carcinoma right cheondoism * Consult (Routine) - Closed Specialty Diagnoses / Procedures [facility] Dermatology Diagnoses Basal cell carcinoma of skin, unspecified Tam Pal, PAPrabhaC [address] [phone] Frederick Romero MD [address] [place] [phone] Referral ID Status Reason Start Date Expiration Date Visits Re quested Visits Authorized [id number] Closed 1 1 Encounter Details Date Type Department Care Team (Late st Contact Info) Description 04/02/2019 13:00 EDT Office Visit [facility] Dermatology 5th Floor [address] [address] Frederick Romero MD [address] [place] [phone] Basal cell carcinoma of right cheondoism region (Primary Dx) Discharge Disposition: Auto Discharge Social History Tobacco Use Types Packs/Day Years [...] No 04/20/2017 documented as of this encounter Patient Instructions * Patient Instructions* Radha Arellano - 04/02/2019 13:00 EDT WOUND CARE INSTRUCTIONS FOR SKIN SURGERY The BANDAGE should remain in place for 24 hours. You may shower or bathe after 24 hours; remove thebandage and replace it after the shower (see wound care section below for instructions on how to dothis). DISCOMFORT: Expect some discomfort. Tylenol, taken as directed by the pumpman, will help relieve pain. If Tylenol does not provide sufficient relief, you may also take Ibuprofen alternating every four hours with the Tylenol. If the pain is severe and not relieved by the above measures, please c all the office. BLEEDING: You may notice some blood on the edges of the dressing the first day - this is NORMAL. Ifthe bleeding soaks through the dressing, remove the dressing, and apply firm, steady pressure with a moist clean wash cloth for fifteen minutes. If the bleeding stops, redress the wound, if not, callour office at . ACTIVITY: Relax and limit your physical activity for the first 48 hours after surgery. Also, if thesurgery was on the face or scalp, keep your head elevated. Your provider may ask you to limit activity for a longer period of time. APPEARANCE: There may be swelling and bruising around the wound, especially near the eyes. Some redness is normal, but the wound should not be red, hot and tender. If the wound becomes increasingly inflamed, warm, or drains pus, please call our office. WOUND CARE: ?? Wash hands with soap and water before changing the dressing. ?? Change the dressing daily and when it becomes wet. ?? Clean the wound with mild soap and warm water. ?? You may gently loosen any crusts with a cotton swab. ?? The wound may be slightly tender and may bleed a small amount. A small amount of discharge is normal. ?? Apply a thin layer of sterile petroleum jelly over the wound. ?? Cover with Telfa or similar non-stick dressing or bandage. ?? Tape in place with Hypafix or paper tape. ?? It is important to keep the wound covered for 7 days at which point the dressing may be removed and does not need to be reapplied. ?? If there are areas that are not fully healed after 7 days then the dressing should remain in place longer until the skin has healed completely. ?? If your sutures require removal, you will receive specific instructions regarding when and whereto have them removed. Dissolvable sutures generally fall out in 7 to 14 days. If there are suture remnants still present after 7 days you may pull them out with tweezers. CONTACT OUR OFFICE ( or ) IF YOU EXPERIENCE: ?? Increasing redness ?? Wound is warm or hot to touch ?? Increasing pain ?? Drainage with a foul odor ?? Rapid swelling of the wound ?? Fever or chills documented in this encounter Discharge Disposition Disposition Code Departure Means Destination Auto Discharge documented in this encounter Progress Notes * Frederick Romero MD - 04/02/2019 1300 EDT Images from the original note were not included. MOHS SURGERY POST-OP SUMMARY Sandhya Lomas is a 58 y.o. year old female who underwent Mohs surgery today 04/02/2019. The following is a summary of the operative findings: Lesion 1 Basal cell carcinoma (BCC) Location right cheondoism Size Preop (cm) 0.7 cm x 0.6 cm Size Postop (cm) 1.3 cm x 0.8 cm Stages 1 Depth of Excision subcutis Repair intermediate linear repair Ms. Lomas was discharged from the operative suite in good condition. She was carefully instructed in postoperative wound care both verbally and in writing. All sutures used were absorbable, so the patient does not need to return for suture removal. The patient will follow up with Tam Pal PA-C and will return to see me as needed. Note: None URI Barfield MD 04/02/2019 15:00 MOHS EVALUATION NOTE Chief Complaint Patient presents with ??? Basal Cell Carcinoma right cheondoism Subjective: Sandhya Lomas is a 58 y.o. year old female who is referred to me for evaluation and treatment ofa skin cancer on the right cheondoism by Tam Pal PA-C. The patient is referred to consider Mohs surgery versus other treatment options. The patient notes that this lesion has been present for a few months, and reports slow growth. The patient???s risk factors for skin cancer include history ofbasal cell carcinoma, avid outdoor lifestyle and blue eyes and fair skin. Risk factors: Pacemaker/ICD: none Anticoagulants: none Total joint replacements/valves: none Allergies: Patient has No Known Allergies. Immunosuppression: none Smoking status: non-smoker For full Medical, Surgical, Family, and Social histories as well as Review of Systems, Medications and Allergies please see those sections of this encounter in the electronic chart which I have personally reviewed. Objective: The patient is a alert and well appearing 58 y.o.-year-old female sitting on the examination table. Examination of the affected area revealed the following: ?? An approximately 0.7 cm x 0.6 cm pearly and pink, papule located on the right cheondoism. ?? Examination of the lymph nodes was not performed today. Pathology: Nodular basal cell carcinoma, extending to margins Assessment & Plan: Basal cell carcinoma (BCC) of the right cheondoism ?? Ms. Lomas and I discussed the meaning of the diagnosis of skin cancer and the options for treatment including curettage and electrodesiccation, radiation therapy, conventional excision, and excision by Mohs micrographic surgery. Due to the need for a high cure rate and optimum functional and aesthetic outcome, I feel that Mohs surgery is indicated. The risks of Mohs surgery and potential reconstructive surgery, including but not limited to, bleeding, scarring, infection, recurrence, injury to functionally or cosmetically important nerve structures and an unsatisfactory cosmetic result were reviewed. The patient was given an opportunity to ask questions, and I believe that all of her questions were answered satisfactorily. Ms. Lomas understands that following Mohs surgery an operativerepair may be required and may involve substantial suturing. We have jointly planned to have me repair the wound at the day of surgery if needed. She understands that following reconstruction, if performed, many months may elapse before a decision can be made about the final cosmetic result, and that, in some cases a revision may be necessary to optimize the outcome. I explained to Ms. Lomas that in addition to the risk of recurrence from her skin cancer she has an increased risk of developingadditional new skin cancers elsewhere. For that reason, follow up for ongoing skin surveillance examinations, after surgery, will be imperative. The patient has been scheduled to undergo surgery today. Note: None URI Barfield 04/02/2019 14:20 Frederick Romero MD 04/02/2019 15:00 MOHS OPERATIVE REPORT Patient Name: Sandhya Lomas Date of Service: April 02, 2019 Surgeon: Frederick Romero MD Firestop/Containment Worker: Daija Reddy PA-C Case #: [id number] Mohs AUC Score: 8 (APPROPRIATE) Preoperative Diagnosis: Basal cell carcinoma (BCC) Preoperative Procedure: Mohs micrographic surgery Location of Lesion: right cheondoism Preoperative Lesion Size: 0.7 cm x 0.6 cm Preoperative Procedure: Mohs microscopically-controlled fresh tissue excision Indications: The patient presents with a basal cell carcinoma (BCC). Because of the histologic and clinical nature of the lesion, as well as its location, the need to achieve the highest cure rate while providing maximum tissue preservation warranted tumor extirpation via microscopically-controlledexcision using the Mohs fresh tissue technique. Alternate therapeutic options were discussed on several occasions prior to surgery. After informed consent was obtained and appropriate instruction wasprovided, the patient underwent tumor extirpation by the Mohs fresh tissue technique as follows: PROCEDURE - INITIAL STAGE: Patient position: supine Anesthesia: 1% lidocaine with epinephrine 1:100,000 local infiltration Prep: Povodine Iodine No data found. The patient was brought to the operative suite. The lesion was identified and was prepped in a sterile fashion. The area was infiltrated with lidocaine/epinephrine to achieve complete anesthesia and to augment hemostasis. The Mohs procedure was then carried out by Dr. Romero as follows: An initial b eveled excision was performed to the subcutis with a scalpel blade and tissue scissors as indicated. A hash was created in the specimen and within the adjacent epidermis for marking purposes. The Mohs specimen was excised in a sharp manner, and carefully placed in proper orientation on the surgicaltray. Hemostasis of the operative wound was obtained with careful spot electrocoagulation. A sterile non-adherent dressing was applied to the operative wound. The Mohs tissue specimen was carefully transferred to the lab where the tissue was divided, and color inked for orientation. These specimens were mapped and then handed personally by the doctor to the auto electrical technician for frozen sectioning. The tissue was embedded so that the deep and surface margins layin the same plane, and sections were made through this plane. Once the slide preparation was complete Dr. Romero performed histologic evaluation and interpretation of all sections. A summary of the findings may be found below. Stage 1 findings: Wound Depth subcutis Sections Created 2 Number of Sections Containing Tumor 0 (NEGATIVE) ADDITIONAL STAGES: None With the patient clear of microscopic tumor, surgery was considered complete. The wound was repaired with an INTERMEDIATE LINEAR closure as detailed in the separate linear repair procedure note below. Postoperative Wound Size: 1.3 cm x 0.8 cm Final Diagnosis: Nodular basal cell carcinoma Final Procedure: Mohs micrographic surgery Blood Loss: Minimal Operative Time: 30 minutes Complications: None Note: None I was present during all garcia and critical portions of this procedure and remained immediately available throughout. I performed the garcia elements of the procedure. Frederick Romero MD 04/02/2019 15:00 INTERMEDIATE REPAIR PATIENT INFORMATION: Sandhya Lomas SURGEON: Frederick Romero MD PATIENT AMBASSADOR: Daija Reddy PA-C PREOPERATIVE DIAGNOSIS: Defect following microscopically controlled excision of basal cell carcinoma (BCC) PREOPERATIVE PROCEDURE: Intermediate Linear Closure LOCATION of WOUND: right cheondoism WOUND DIMENSIONS: 1.3 cm x 0.8 cm INDICATIONS: The patient presents with an operative wound following tumor removal. After careful consideration and discussion of all repair options, it was determined that, given the location and nature of the defect, an intermediate linear layered closure offered the best chance for preservation of normal anatomic and functional relationships. Alternate options were discussed and the patient was encouraged to ask questions, which, I believe, were answered appropriately. Informed consent was obtained in writing. After informed consent was obtained and appropriate instruction was provided, the patient underwent operative repair as follows. PROCEDURE: Patient position: supine Anesthesia: 1% lidocaine with epinephrine 1:100,000 local infiltration Prep: Povodine Iodine The Mohs operative defect was identified, and the area was infiltrated with lidocaine/epinephrine to achieve complete anesthesia and to augment hemostasis. The area was prepped in the usual sterile and was draped with sterile drapes. A linear closure was designed with care to place the operative repair within functional and cosmetic lines to minimize the postoperative distortion of normal tissues. The wound edges were prepared using a # 15 scalpel blade to precisely delineate the operative repair and were then undermined with combined blunt and, as needed, sharp dissection taking great care to avoid functionally important vessels and nerves. Undermining was carried out at the level of the subcutaneous fat Hemostasis of the operative wound was obtained with careful spot electrocoagulation,and ligature as indicated. The wound edges were then approximated using 5.0 Monocryl (poliglecaprone 25) buried interrupted sutures at the level of the subcutis and dermis. The epidermis was then approximated using 6.0 Fast absorbing plain gut. The final wound length was 3.1 cm. FINAL DIAGNOSIS: Defect following microscopically controlled excision FINAL PROCEDURE: Intermediate linear closure BLOOD LOSS: minimal OPERATIVE TIME: 30 minutes COMPLICATIONS: None NOTE: None Frederick Romero MD 04/02/2019 15:00 * Radha Arellano - 04/02/2019 1300 EDT Patient Education Topic: wound care Method: Handout and Verbal Taught to: Patient Barriers: None Outcomes: independent Signature: Radha Arellano Customs Entry Clerk, Dermatology 13:07 04/02/2019 documented in this encounter Plan of Treatment Upcoming Encounters Date Type Department Care Team (Late st Contact Info) Description 03/21/2024 8:30 EDT Appointment [facility] [address] [place], [place] [phone] 04/17/2024 10:50 EDT Appointment [facility] [address] [place], [place] [phone] Marcellus Walsh MD 111 [facility], [address] [place] [phone] 05/01/2024 13:30 EDT Appointment [facility] Breast Imaging - [facility] [address] [place], [place] [phone] 05/15/2024 15:00 EST Telemedicine [facility] Gastroenterology - [address] [phone] Madhu Park MD PhD 111 [facility] 5 [place] [phone] 12/10/2024 11:30 EDT Office Visit [facility] Surgical Oncology - [address] [phone] Magnolia Blood PA-C [address] [place] [address], [facility] [address] [place] [phone] documented as of this encounter Procedures Procedure Name Priority Date/Time Associated Diagnosis Comments PROCEDURE REPORTS - SCANNED 04/07/2019 2:17 EDT documented in this encounter Results * PROCEDURE REPORTS - SCANNED (04/07/2019 2:17 EDT) 04/07/2019 2:17 EDT Scan 2 Spot Remover PROCEDURE/MINOR TERRIE GICAL ORDERABLES documented in this encounter Visit Diagnoses Diagnosis Basal cell carcinoma of right cheondoism region- Primary Basal cell carcinoma of skin of other and unspecified parts of face documented in this encounter Historical Medications * This list may reflect changes made after this encounter. Medication Sig Dispensed Refills Start Date End Date NIACINAMIDE ORAL Take by mouth. added in this encounter Care Teams Auto Haulaway Driver Relationship Specialty Start Date End Date Indy Champion MD [address] [place] [phone] PCP - General 04/15/15 documented as of this encounter
--- OUTSIDE RECORDS SUMMARY | 2024-03-20 21:36 | XMS_ITS | Encounter Summary ---
Author Organization [facility] Address [address] [place] [address] Care Team Providers Care Airport Shuttle Driver Name Role Phone Indy Champion MD Primary Care Provider Reason for Visit * Reason Onset Date Comments Appointment Related 02/13/2020 Encounter Details Date Type Department Care Team (Late st Contact Info) Description 02/13/[facility] Mammography - [address] [phone] Viktoria Herr Appointment Related Social History Tobacco Use Types [...] encounter Miscellaneous Notes * Telephone Encounter - Viktoria Herr - 02/13/2020 1352 EDT Patient called in and she is now scheduled for breast imaging on 02/14/20 documented in this encounter Plan of Treatment Upcoming Encounters Date Type Department Care Team (Late st Contact Info) Description 03/21/2024 8:30 EDT Appointment [facility] Ultrasound [address] [place], [place] [phone] 04/17/2024 10:50 EDT Appointment [facility] Endoscopy - [address] [phone] Marcellus Walsh MD [address] [place] [phone] 05/01/2024 13:30 EDT Appointment [facility] Breast Imaging - [address] [phone] 05/15/2024 15:00 EST Telemedicine [facility] Gastroenterology - [address] [phone] Madhu Park MD PhD [address] [place] [address] [address] [place] [phone] 12/10/2024 11:30 EDT Office Visit [facility] Surgical Oncology - [address] [phone] Magnolia Blood PA-C [address] [place] [address], [facility] 2 [place] [phone] documented as of this encounter Visit Diagnoses Not on filedocumented in this encounter Care Teams Airport Shuttle Driver Relationship Specialty Start Date End Date Indy Champion MD [address] [place] [phone] PCP - General 04/15/15 documented as of this encounter
--- OUTSIDE RECORDS SUMMARY | 2024-03-20 21:36 | XMS_ITS | Encounter Summary ---
Author Organization [facility] Address [address] [place] [address] Care Team Providers Care Clean Out Driller Name Role Phone Indy Champion MD Primary Care Provider Encounter Details Date Type Department Care Team (Late st Contact Info) Description 04/25/2018 Results Only Imaging [facility] Surgical Oncology - [address] [phone] Indy Stein PA-C 111 [facility], [address] [place] [address] Social History Tobacco Use Types Packs/Day Years [...] 8:30 EDT Appointment [facility] Ultras[facility] [address] [place] [address] 04/17/2024 10:50 EDT Appointment [facility] Endoscopy - [address] [phone] Marcellus Walsh MD [address] [place] [address], [facility] 5 [place] [phone] 05/01/2024 13:30 EDT Appointment [facility] Breast Imaging - [address] [phone] 05/15/2024 15:00 EST Telemedicine [facility] Gastroenterology - [address] [phone] Madhu Park MD PhD [address] [place] [address], [facility] [address] [place] [phone] 12/10/2024 11:30 EDT Office Visit [facility] Surgical Oncology - [address] [phone] Magnolia Blood PA-C [address] [place] [address], [facility] 2 [place] [phone] documented as of this encounter Procedures Procedure Name Priority Date/Time Associated Diagnosis Comments MA 2D/3D BILATERAL CINDY ROUTINE SCREENING MAMMO 04/25/2018 8:25 EDT documented in this encounter Results * MA 2D/3D BILATERAL CINDY ROUTINE SCREENING MAMMO (04/25/2018 8:25 EDT) Anatomical Region Laterality Modality Other 04/25/2018 8:25 EDT 04/25/2018 10:33 EDT Narrative 04/25/2018 10:33 EDT Comparison has been made to previous images. [...] OVERALL ASSESSMENT - CATEGORY 1 - NEGATIVE END OF IMPRESSION These results will be communicated to your patient via a lay letter from Radiology. If any additional imaging is needed we will contact your patient directly. Procedure Note Araseli Ko MD - 04/25/2018 Comparison has been made to previous images. [...] OVERALL ASSESSMENT - CATEGORY 1 - NEGATIVE END OF IMPRESSION These results will be communicated to your patient via a lay letter from Radiology. If any additional imaging is needed we will contact your patient directly. Indy Stein PA-C [facility] MAMMOGRAPHY ORDERABLES documented in this encounter Visit Diagnoses Not on filedocumented in this encounter Care Teams Clean Out Driller Relationship Specialty Start Date End Date Indy Champion MD [address] [place] [address] PCP - General 04/15/15 documented as of this encounter
--- OUTSIDE RECORDS SUMMARY | 2024-03-20 21:36 | XMS_ITS | Encounter Summary ---
Author Organization [facility] Address [address] [place] [address] Care Team Providers Care Attacher Name Role Phone Indy Champion MD Primary Care Provider Reason for Referral * Radiology Services (Routine) - Closed Specialty Diagnoses / Procedures Referred By Dedra sampson Referred To Contact Diagnoses Screening mammogram, encounter for Procedures MA BREAST SCREENING CINDY Indy Farr MD [facility] [place] [address] Referral ID Status Reason Start Date Expiration Date Visits Re quested Visits Authorized [id number] Closed 07/08/2020 1 1 Reason for Visit * Radiology Services (Routine) - Closed Specialty Diagnoses / Procedures Referred By Dedra sampson Referred To Contact Diagnoses Screening mammogram, encounter for Procedures MA BREAST SCREENING CINDY Indy Farr MD [facility] [place] [address] Referral ID Status Reason Start Date Expiration Date Visits Re quested Visits Authorized [id number] Closed 07/08/2020 1 1 Encounter Details Date Type Department Care Team (Latest Contact Info) Description 08/13/2020 10:40 EST - 08/13/2020 23:59 EST [facility] M[facility]ography - Main [place] [address] [place] [address] Screening mammogram, encounter for Discharge Disposition: Home [...] have Coronavirus / COVID-19? No / Unsure 08/13/2020 10:40 EST documented as of this encounter Last Filed Vital Signs Vital Sign Reading Time Taken Comments Blood Pressure - - Pulse - - Temperature - - Respiratory Rate - - Oxygen Saturation - - Inhaled Oxygen Concentration - - Weight - - Height 165.1 cm (5' 5) 08/13/2020 1104 EST Body Mass Index - - documented in [...] 8:30 EDT Appointment Karin Danielle Ultrasound [address] [place], [place] [phone] 04/17/2024 10:50 EDT Appointment [facility] Endoscopy - [address] [phone] Marcellus Walsh MD [address] [place] [address] 5 [place] [phone] 05/01/2024 13:30 EDT Appointment [facility] Breast Imaging - [address] [phone] 05/15/2024 15:00 EST Telemedicine [facility] Gastroenterology - [address] [phone] Madhu Park MD PhD [address] [place] [address], [facility] 5 [place] [phone] 12/10/2024 11:30 EDT Office Visit [facility] Surgical Oncology - [address] [phone] Magnolia Blood PA-C [address] [place] [address], [facility] 2 [place] [phone] documented as of this encounter Procedures Procedure Name Priority Date/Time Associated Diagnosis Comments MA BREAST SCREENING CINDY BILATERAL Routine 08/13/2020 11:14 EST Screening mammogram, encounter for documented in this encounter Results * MA BREAST SCREENING CINDY BILATERAL (08/13/2020 11:14 EST) Anatomical Region Laterality Modality Breast Bilateral Mammography 08/13/2020 14:4 9 EST Impressions 08/13/2020 14:49 EST Negative, no evidence of malignancy. RECOMMENDATION: [...] we will contact your patient directly. Narrative 08/13/2020 14:49 EST MA BREAST SCREENING CINDY BILATERAL ??08/13/2020 11:00 AM History: routine Comparison: ??Comparison has been made to previous images. Technique: Routine 3D tomosynthesis with synthesized 2D views with CAD Bilateral Breast Composition: The breast tissue is extremely dense, which lowers the sensitivity of mammography. Bilateral Breast Findings: ??No significant masses, calcifications or other abnormalities are seen. Procedure Note Justine Restrepo MD MPH - 08/13/2020 MA BREAST SCREENING CINDY BILATERAL 08/13/2020 11:00 [...] the patient's extremely dense breast tissue, consideration shouldbe given to supplemental screening breast ultrasound in addition toscreening mammography. OVERALL ASSESSMENT: BI-RADS 1: Negative These results will be communicated to your patient via a lay letter fromRadiology. If any additional imaging is needed we will contact yourpatient directly. Indy Champion MD IMG MAMMOGRAPHY ORDERABLES documented in this encounter Visit Diagnoses Diagnosis Screening mammogram, encounter for documented in this encounter Care Teams Attacher Relationship Specialty Start Date End Date Indy Champion MD [address] [place] [address] PCP - General 04/15/15 documented as of this encounter
--- OUTSIDE RECORDS SUMMARY | 2024-03-20 21:36 | XMS_ITS | Encounter Summary ---
Author Organization [facility] Address [address] [place] [address] Care Team Providers Care Crust Sorter Name Role Phone Indy Champion MD Primary Care Provider Reason for Referral * Radiology Services (Routine) - Closed Specialty Diagnoses / Procedures Referred By Dedra sampson Referred To Contact Diagnoses Dense breast tissue on mammogram Procedures US BREAST SCREENING ONLY BILATERAL US ABUS BREAST SCREENING BILATERAL US BREAST SCREENING ONLY BILATERAL Magnolia Blood PA-C [address] [place] [phone] Referral ID Status Reason Start Date Expiration Date Visits Re quested Visits Authorized [id number] Closed 11/09/2019 1 1 Reason for Visit * Radiology Services (Routine) - Closed Specialty Diagnoses / Procedures Referred By Dedra sampson Referred To Contact Diagnoses Dense breast tissue on mammogram Procedures US BREAST SCREENING ONLY BILATERAL US ABUS BREAST SCREENING BILATERAL US BREAST SCREENING ONLY BILATERAL Magnolia Blood PA-C [address] [place] [phone] Referral ID Status Reason Start Date Expiration Date Visits Re quested Visits Authorized [id number] Closed 11/09/2019 1 1 Encounter Details Date Type Department Care Team (Latest Contact Info) Description 02/14/2020 9:44 EDT - 02/14/2020 23:59 EDT [facility] Ultrasound - [address] [address] Dense breast tissue on mammogram Discharge Disposition: [...] have Coronavirus / COVID-19? No / Unsure 02/14/2020 9:44 EDT documented as of this encounter Functional [...] 8:30 EDT Appointment Karin Shashi Ultrasound [address] [place] [address] 04/17/2024 10:50 EDT Appointment [facility] Endoscopy - [address] [phone] Marcellus Walsh MD 111 [facility], [facility] 5 [place] [phone] 05/01/2024 13:30 EDT Appointment [facility] Breast Imaging - [address] [phone] 05/15/2024 15:00 EST Telemedicine [facility] Gastroenterology - [address] 415211 Madhu Park MD PhD [address] [place] [address], [facility] 5 [place] [phone] 12/10/2024 11:30 EDT Office Visit [facility] Surgical Oncology - [address] [phone] Magnolia Blood PAPrabhaC [address] [place] [address], [facility] 2 [place] [phone] documented as of this encounter Procedures Procedure Name Priority Date/Time Associated Diagnosis Comments US BREAST SCREENING ONLY BILATERAL Routine 02/14/2020 10:54 EDT Dense breast tissue on mammogram documented in this encounter Results * US BREAST SCREENING ONLY BILATERAL (02/14/2020 10:54 EDT) Anatomical Region Laterality Modality Breast Bilateral Ultrasound 02/14/2020 15:4 9 EDT Narrative 02/14/2020 15:49 EDT US BREAST SCREENING ONLY BILATERAL ??02/14/2020 10:00 AM Clinical History/Comments: Dense breast tissue [...] this location. These masses are unchanged as compared to imaging performed dating back to October 2016, [...] February 2021. Overall Assessment: BI-RADS 2: Benign. The patient will be notified of her breast imaging results via a lay letter from Radiology. ??Radiology will contact the patient directly regarding any findings which require additional imaging. Magnolia VARGAS US ORDERABL ES documented in this encounter Visit Diagnoses Diagnosis Dense breast tissue on mammogram documented in this encounter Care Teams Crust Sorter Relationship Specialty Start Date End Date Indy Champion MD [address] [place] [address] PCP - General 04/15/15 documented as of this encounter
--- OUTSIDE RECORDS SUMMARY | 2024-03-20 21:36 | XMS_ITS | Encounter Summary ---
Author Organization [facility] Address [address] [place] [address] Care Team Providers Care Railroader Name Role Phone Indy Champion MD Primary Care Provider Encounter Details Date Type Department Care Team (Latest Contact Info) Description 08/13/2020 Travel Social History Tobacco Use Types Packs/Day [...] 10:40 EST documented as of this encounter Functional [...] Description 03/21/2024 8:30 EDT Appointment Karin Saul [address] [place] [address] 04/17/2024 10:[address] [facility] Endoscopy - [address] 757341 Marcellus Walsh MD [address] [place] [address], [facility] 5 [place] [phone] 05/01/2024 13:[address] [facility] Breast Imaging - [address] 336241 05/15/2024 15:[address] [facility] Gastroenterology - [address] 106981 Madhu Park MD PhD [address] [place] [address], [facility] 5 [place] [phone] 12/10/2024 11:30 EDT Office Visit [facility] Surgical Oncology - [address] [phone] Magnolia Blood, PA-C [address] [place] [address], [facility] 2 [place] [phone] documented as of this encounter Visit Diagnoses Not on filedocumented in this encounter Care Teams Railroader Relationship Specialty Start Date End Date Indy Champion MD [address] [place], [place] 961071 PCP - General 04/15/15 documented as of this encounter
--- OUTSIDE RECORDS SUMMARY | 2024-03-20 21:36 | XMS_ITS | Encounter Summary ---
Author Organization [facility] Address [address] [place] [address] Care Team Providers Care Statistical Modeler Name Role Phone Indy Champion MD Primary Care Provider Reason for Referral * Radiology Services (Routine) - Closed Specialty Diagnoses / Procedures [facility] Referred To Contact Diagnoses Fibrocystic disease of both breasts Procedures RAD US BREAST SCREENING ONLY BILATERAL Indy Stein PA-C [address] [place] [phone] Referral ID Status Reason Start Date Expiration Date Visits Re quested Visits Authorized [id number] Closed 04/28/2017 1 1 Reason for Visit * Reason Onset Date Comments Appointment Related 04/27/2017 Encounter Details Date Type Department Care Team (Late st Contact Info) Description 04/27/2017 Orders Only [facility] Surgical Oncology - [address] [phone] Indy Stein PA-C [address] [place] [phone] Fibrocystic disease of both breasts (Primary Dx) Social History [...] 8:30 EDT Appointment Karin Danielle Ultrasound [address] [place] [address] 04/17/2024 10:50 EDT Appointment [facility] Endoscopy - [address] [phone] Marcellus Walsh MD [address] [place] [address] 5 [place] [phone] 05/01/2024 13:30 EDT Appointment [facility] Breast Imaging - [address] 715121 05/15/2024 15:00 EST Telemedicine [facility] Gastroenterology - [address] 613541 Madhu Park MD PhD [address] [place] [address] 5 [place] [phone] 12/10/2024 11:30 EDT Office Visit [facility] Surgical Oncology - [address] 953351 Magnolia Blood, PA-C [address] [place] [address], Level [address] [place] [phone] documented as of this encounter Procedures Procedure Name Priority Date/Time Associated Diagnosis Comments RAD US BREAST SCREENING ONLY BILATERAL Routine 11/02/2017 9:32 EDT Fibrocystic disease of both breasts documented in this encounter Results * RAD US BREAST SCREENING ONLY BILATERAL (11/02/2017 9:32 EDT) Anatomical Region Laterality Modality Other 11/02/2017 9:32 EDT 11/02/2017 10:10 EDT Narrative 11/02/2017 10:10 EDT RAD US BREAST SCREENING ONLY BILATERAL ??11/02/2017 9:32 AM Signs and Symptoms/Comments: N60.12-Diffuse cystic mastopathy of left ajbhwp-VDR-71 N60.11-Diffuse cystic mastopathy of right hfjaoe-XIW-21; N60.11-Diffuse cystic mastopathy of right fkvzfl-VEZ-07 N60.12-Diffuse cystic mastopathy of left lgxdhh-OCV-54; High risk, diffuse cystic mastopathy, dense breast [...] due October,. Overall assessment: BI-RADS 2: Benign. The liaison inspection laboratory assistant discussed the radiologist's interpretation and follow up recommendations with the patient at the time of the examination. These results will be communicated to your patient via a lay letter from Radiology. Procedure Note Justine Restrepo MD - 11/02/2017 RAD US BREAST SCREENING ONLY BILATERAL 11/02/2017 9:32 AM Signs and Symptoms/Comments: N60.12-Diffuse cystic mastopathy of left pjywbn-YTF-76 N60.11-Diffuse cystic mastopathy of right mqydpf-PZB-93; N60.11-Diffuse cystic mastopathy of right fikbzw-RJC-18 N60.12-Diffuse cystic mastopathy of left hzfezd-IBH-61; High risk, diffuse cystic mastopathy, dense breast [...] due October,. Overall assessment: BI-RADS 2: Benign. The liaison inspection laboratory assistant discussed the radiologist's interpretation and follow up recommendations with the patient at the time of the examination. These results will be communicated to your patient via a lay letter from Radiology. Indy A [place] PA-C IMG US ORDERABL ES documented in this encounter Visit Diagnoses Diagnosis Fibrocystic disease of both breasts- Primary documented in this encounter Care Teams Statistical Modeler Relationship Specialty Start Date End Date Indy Champion MD [address] [place] [address] PCP - General 04/15/15 documented as of this encounter
--- OUTSIDE RECORDS SUMMARY | 2024-03-20 21:36 | XMS_ITS | Encounter Summary ---
Author Organization [facility] Address [address] [place] [address] Care Team Providers Care Boiler Room Operator Name Role Phone Indy Champion MD Primary Care Provider Reason for Referral * Radiology Services (Routine) - Closed Specialty Diagnoses / Procedures [facility] Referred To Contact Diagnoses Dense breast tissue on mammogram Procedures US BREAST SCREENING ONLY BILATERAL US ABUS BREAST SCREENING BILATERAL US BREAST SCREENING ONLY BILATERAL Magnolia Blood PA-C [address] [place] [phone] Referral ID Status Reason Start Date Expiration Date Visits Re quested Visits Authorized [id number] Closed 11/09/2019 1 1 Reason for Visit * Reason Onset Date Comments Follow-up 05/24/2019 Encounter Details Date Type Department Care Team (Late st Contact Info) Description 05/24/2019 Orders Only [facility] Surgical Oncology - [address] [phone] Magnolia Blood PA-C [address] [place] [phone] Dense breast tissue on mammogram (Primary [...] Description 03/21/2024 8:30 EDT Appointment Karin Danielle [place] [address] [place] [address] 04/17/2024 10:50 EDT Appointment [facility] Endoscopy - [address] 601221 Marcellus Walsh MD [address] [place] [phone] 05/01/2024 13:30 EDT Appointment [facility] Breast Imaging - [address] 845381 05/15/2024 15:00 EST Telemedicine [facility] Gastroenterology - [address] 171801 Madhu Park MD PhD [address] [place] [phone] 12/10/2024 11:30 EDT Office Visit [facility] Surgical Oncology - [address] 736191 Magnolia Blood PAPrabhaC [address] [place] [address] 2 [place] [phone] documented as of this encounter Results * US BREAST SCREENING [...] Diagnosis Dense breast tissue on mammogram- Primary Dense breast tissue on mammogram documented in this encounter Care Teams Boiler Room Operator Relationship Specialty Start Date End Date Indy Champion MD [address] [place] [address] PCP - General 04/15/15 documented as of this encounter
--- OUTSIDE RECORDS SUMMARY | 2024-03-20 21:36 | XMS_ITS | Encounter Summary ---
Author Organization [facility] Address [address] [place] [address] Care Team Providers Care Offset Proof Press Operator Name Role Phone Indy Champion MD Primary Care Provider Encounter Details Date Type Department Care Team (Latest Contact Info) Description 01/02/2018 9:51 EDT - 01/02/2018 9:52 EDT Hospital Encounter [address] [address] Lucius Wood MD [address] [place] [address] 3 [place] [address] Discharge Disposition: Home or Self Care Social [...] as of this encounter Discharge Diagnoses Diagnosis N95.0 Postmenopausal bleeding-N95.0[ICD-10-CM] documented in this encounter Medications at Time of Discharge Medication Sig Dispensed Refills Start Date End Date acyclovir (ZOVIRAX) 5 % ointmentIndications:Recur rent cold sores Apply to lip at onset of tingling. Can three times per day 1 Tube 1 04/21/2011 valacyclovir (VALTREX) 1 g tablet Take 0.5 [...] Description 03/21/2024 8:30 EDT Appointment Karin Danielle [place] [address] 9[address] [place] [address] 04/17/2024 10:50 EDT Appointment [facility] Endoscopy - [address] 671121 Marcellus Walsh MD [address] [place] [phone] 05/01/2024 13:30 EDT Appointment [facility] Breast Imaging - [address] [phone] 05/15/2024 15:00 EST Telemedicine [facility] Gastroenterology - [address] 820881 Madhu Park MD PhD [address] [place] [phone] 12/10/2024 11:30 EDT Office Visit [facility] Surgical Oncology - [address] 183871 Magnolia Blood PA-C 111 [facility], Level 2 [place] [phone] documented as of this encounter Visit Diagnoses Not on filedocumented in this encounter Care Teams Offset Proof Press Operator Relationship Specialty Start Date End Date Indy Champion MD [address] [place] [address] PCP - General 04/15/15 documented as of this encounter
--- OUTSIDE RECORDS SUMMARY | 2024-03-20 21:36 | XMS_ITS | Encounter Summary ---
Author Organization [facility] Address [address] [place] [address] Care Team Providers Care Surgical Coordinator Name Role Phone Indy Champion MD Primary Care Provider Encounter Details Date Type Department Care Team (Latest Contact Info) Description 02/13/2020 Travel Social History Tobacco Use Types Packs/Day [...] have Coronavirus / COVID-19? No / Unsure 02/13/2020 16:44 EDT documented as of this encounter Functional [...] Description 03/21/2024 8:30 EDT Appointment Karin Danielle [address] [address] 04/17/2024 10:50 EDT Appointment [facility] Endoscopy - [address] 637461 Marcellus Walsh MD [address] [place] [address], [facility] 5 [place] [phone] 05/01/2024 13:30 EDT Appointment [facility] Breast Imaging - [address] 264961 05/15/2024 15:00 EST Telemedicine [facility] Gastroenterology - [address] 684251 Madhu Park MD PhD [address] [place] [address], [facility] 5 [place] [phone] 12/10/2024 11:30 EDT Office Visit [facility] Surgical Oncology - [address] [phone] Magnolia Blood, PA-C [address] [place] [address], Level [address] [place] [phone] documented as of this encounter Visit Diagnoses Not on filedocumented in this encounter Care Teams Surgical Coordinator Relationship Specialty Start Date End Date Indy Champion MD [address] [place] [address] [id number] PCP - General 04/15/15 documented as of this encounter
--- OUTSIDE RECORDS SUMMARY | 2024-03-20 21:36 | XMS_ITS | Encounter Summary ---
Author Organization [facility] Address [address] [place] [address] Care Team Providers Care Remelt Furnace Expediter Name Role Phone Indy Champion MD Primary Care Provider Encounter Details Date Type Department Care Team (Late st Contact Info) Description 05/16/2019 Results Only Imaging [facility] Surgical Oncology - [address] [address] Magnolia Blood PA-C 111 [facility], Level [address] [place] [phone] Social History Tobacco Use Types Packs/Day Years [...] 8:30 EDT Appointment Karin Shashi Ultrasound [address] [place] [address] 04/17/2024 10:50 EDT Appointment [facility] Endoscopy - [address] 040521 Marcellus Walsh MD [address] [place] [address], [facility] 5 [place] [phone] 05/01/2024 13:30 EDT Appointment [facility] Breast Imaging - [address] 714931 05/15/2024 15:00 EST Telemedicine [facility] Gastroenterology - [address] 498881 Madhu Park MD PhD [address] [place] [address], [facility] 5 [place] [phone] 12/10/2024 11:30 EDT Office Visit [facility] Surgical Oncology - [address] [phone] Magnolia Blood PA-C [address] [place] [address], [facility] 2 [place] [phone] documented as of this encounter Procedures Procedure Name Priority Date/Time Associated Diagnosis Comments MA 2D/3D BILATERAL CINDY ROUTINE SCREENING MAMMO 05/16/2019 8:04 EST documented in this encounter Results * MA 2D/3D BILATERAL CINDY ROUTINE SCREENING MAMMO (05/16/2019 8:04 EST) Anatomical Region Laterality Modality Other 05/16/2019 8:04 EST 05/16/2019 14:54 EST Narrative 05/16/2019 14:54 EST Comparison has been made to previous images. [...] will contact your patient directly. Procedure Note Carissa Kendall MD - 05/16/2019 Comparison has been made to previous images. [...] needed we will contact your patient directly. Magnolia Blood PA-C [facility] MAMMOGRAPHY ORDERABLES documented in this encounter Visit Diagnoses Not on filedocumented in this encounter Care Teams Remelt Furnace Expediter Relationship Specialty Start Date End Date Indy Champion MD [address] [place] [address] PCP - General 04/15/15 documented as of this encounter
--- OUTSIDE RECORDS SUMMARY | 2024-03-20 21:36 | XMS_ITS | Encounter Summary ---
Author Organization [facility] Address [address] [place] [address] Care Team Providers Care Composing Room Supervisor Name Role Phone Indy Champion MD Primary Care Provider Encounter Details Date Type Department Care Team (Latest Contact Info) Description 12/19/2017 12:40 EDT - 12/19/2017 12:41 EDT Hospital Encounter [address] [address] Lucius Wood MD [address] [place] [address] 3 [place] [phone] Discharge Disposition: Home or Self [...] Description 03/21/2024 8:30 EDT Appointment Karin Danielle [phone] [place] [address] 04/17/2024 10:50 EDT Appointment [facility] Endoscopy - [address] 891301 Marcellus Walsh MD [address] [place] [phone] 05/01/2024 13:30 EDT Appointment [facility] Breast Imaging - [address] [phone] 05/15/2024 15:00 EST Telemedicine [facility] Gastroenterology - [address] 366741 Madhu Park MD PhD [address] [place] [phone] 12/10/2024 11:30 EDT Office Visit [facility] Surgical Oncology - [address] 757931 Magnolia Blood PA-C 111 [facility], Level [address] [place] [phone] documented as of this encounter Visit Diagnoses Not on filedocumented in this encounter Care Teams Composing Room Supervisor Relationship Specialty Start Date End Date Indy Champion MD [address] [place] [address] PCP - General 04/15/15 documented as of this encounter
--- OUTSIDE RECORDS SUMMARY | 2024-03-20 21:36 | XMS_ITS | Encounter Summary ---
Author Organization [facility] Address [address] [place] [address] Care Team Providers Care Senior Energy Market Coordinator Name Role Phone Indy Champion MD Primary Care Provider Encounter Details Date Type Department Care Team (Latest Contact Info) Description 11/03/2016 10:00 EDT - 11/03/2016 23:59 EDT Hospital Encounter [facility] [place] [address] [place] [address] Nurys Meza MD Discharge Disposition: Auto Discharge Social History Tobacco [...] No 04/15/2015 documented as of this encounter Discharge Diagnoses Diagnosis N63 Unspecified lump in breast-N63[ICD-10-CM] documented in this encounter Medications at Time [...] Disposition Code Departure Means Destination Auto Discharge Home documented in this encounter Progress Notes * Jenniffer Mcneill - 11/03/2016 2359 EDT I told pt results and recommendations of left breast bx done on 11-03-16 (B9). Pt understood. Pt hasalready been referred to the [facility]. Shannan from the [facility] will call the pt directly to discuss the needfor visit or not. branden 11-08-16 documented in this encounter Plan of Treatment Upcoming Encounters Date Type Department Care Team (Late st Contact Info) Description 03/21/2024 8:30 EDT Appointment [facility] Ultrasound 0 [place], [place] [id number] 04/17/2024 10:50 EDT Appointment [facility] Endoscopy - [address] [phone] Marcellus Walsh MD [address] [phone] 05/01/2024 13:30 EDT Appointment [facility] Breast Imaging - [address] [phone] 05/15/2024 15:00 EST Telemedicine [facility] Gastroenterology - [address] [phone] Madhu Park MD PhD [address] [phone] 12/10/2024 11:30 EDT Office Visit [facility] Surgical Oncology - [facility] [address] [place], [place] [address]471 Magnolia Blood PA-C 111 [facility], Level [address] [place] [address] documented as of this encounter Procedures Procedure Name Priority Date/Time Associated Diagnosis Comments SURGICAL PATHOLOGY Routine 11/03/2016 13 :41 EDT documented in this encounter Results * SURGICAL PATHOLOGY (11/03/2016 13:41 EDT) Pathology Report: SURGICAL PATHOLOGY REPORT Reports generated via electronic interface contain original data; however they are lacking the format of the original report. Caution should be taken when reading/interpreting unformatted reports. Name: ? DINA BARRETT ? Accession #: ? [id number] ? : ? 1960 (Age: 56) ??F ? Collect Date: ? 11/03/2016 ? Location: ? [facility] ? Receive Date: ? 11/03/2016 ? Provider: CARISSA GODWIN MD Copy to: NURYS CHAMPION MD ? Final Pathologic Diagnosis: BREAST, LEFT, 10 O'CLOCK, 6 CM OUT, ULTRASOUND GUIDED CORE BIOPSY: - Fibrocystic changes including: ??- Papillary apocrine hyperplasia (at least 0.5 cm). See comment. ??- Dense interlobular fibrosis. Comment: Outbound Sales Specialist slides of this case were reviewed at the intradepartmental consultation conference. ?? Document reviewed and electronically signed by: SHANNAN HERNANDEZ MD Report ??Date: 11/05/2016 14:51 By the signature above, the attending physician certifies that he/she has personally conducted a gross and/or microscopic examination of the described specimens and rendered or confirmed the above diagnosis. Specimen(s) Received: Ultrasound guided core biopsy, left breast, upper inner quadrant, 10 o'clock, 6 cm from nipple Clinical History: Extremely dense tissue; enlarging mixed echogenicity mass on screening U/S; oval mixed echogenicity mass, 14.0 x 4.0 x 14.0 mm Gross Description: ? Received in formalin labelled with proper patient identification (initials T, D) and left breast, 10 o'clock, 6 cm out are three yellow-white fibrofatty tissue cores (0.8 cm to 1.2 cm in length, and each 0.2 cm in diameter). Entirely submitted in 1. Time removed from patient: 1033 hrs on 11/03/2016 Time placed in formalin: 1033 hrs on 11/03/2016 Time out of formalin: 1900 hrs on 11/03/2016 URI Diaz (ASCP) 11/03/2016 2:29 PM End of Report [facility] 11/03/2016 13:4 1 EDT 11/03/2016 13:41 EDT Carissa Godwin MD PATHOLOGY ORD ERABLES [facility] [address] [place] [address] documented in this encounter Visit Diagnoses Not on filedocumented in this encounter Care Teams Senior Energy Market Coordinator Relationship Specialty Start Date End Date Indy Champion MD 7 [place] [address] PCP - General 04/15/15 documented as of this encounter
--- OUTSIDE RECORDS SUMMARY | 2024-03-20 21:36 | XMS_ITS | Encounter Summary ---
Author Organization [facility] Address [address] [place] [address] Care Team Providers Care Lease Administration Analyst Name Role Phone Indy Champion MD Primary Care Provider Reason for Visit * Reason Onset Date Comments Appointment Related 02/05/2021 Encounter Details Date Type Department Care Team (Late st Contact Info) Description 02/05/[facility] [place] [address] Viktoria Herr Appointment Related Social History Tobacco [...] * Telephone Encounter - Viktoria Herr - 02/05/2021 1222 EDT Patient called in and rescheduled her breast imaging from 02/24/21 to 03/06/21 documented in this encounter Plan of Treatment Upcoming Encounters Date Type Department Care Team (Late st Contact Info) Description 03/21/2024 8:30 EDT Appointment [facility]in Danielle Ultrasound [address] [place], [place] [address] 04/17/2024 10:50 EDT Appointment [facility] Endoscopy - [address] [phone] Marcellus Walsh MD [address] [place] [phone] 05/01/2024 13:30 EDT Appointment [facility] Breast Imaging - [address] [phone] 05/15/2024 15:00 EST Telemedicine [facility] Gastroenterology - [address] [phone] Madhu Park MD PhD [address] [place] [phone] 12/10/2024 11:30 EDT Office Visit [facility] Surgical Oncology - [address] [phone] Magnolia Blood PA-C [address] [place] [address], [facility] 2 [place] [phone] documented as of this encounter Visit Diagnoses Not on filedocumented in this encounter Care Teams Lease Administration Analyst Relationship Specialty Start Date End Date Indy Champion MD [address] [place] [address] [id number] PCP - General 04/15/15 documented as of this encounter
--- OUTSIDE RECORDS SUMMARY | 2024-03-20 21:36 | XMS_ITS | Encounter Summary ---
Author Organization [facility] Address [address] [place] [address] Care Team Providers Care Dehydrating Press Operator Name Role Phone Indy Champion MD Primary Care Provider Encounter Details Date Type Department Care Team (Late st Contact Info) Description 04/20/2017 Results Only Imaging [facility] Surgical Oncology - [address] [phone] Indy Stein PA-C 111 [facility], [address] [place] [phone] Social History Tobacco Use Types [...] 8:30 EDT Appointment Karin Danielle Ultrasound 7[address] [place] [address] 04/17/2024 10:50 EDT Appointment [facility] Endoscopy - [address] [phone] Marcellus Walsh MD [address] [place] [address], [facility] 5 [place] [phone] 05/01/2024 13:30 EDT Appointment [facility] Breast Imaging - [address] [phone] 05/15/2024 15:00 EST Telemedicine [facility] Gastroenterology - [address] [phone] Madhu Park MD PhD [address] [place] [address], [facility] 5 [place] [phone] 12/10/2024 11:30 EDT Office Visit [facility] Surgical Oncology - [address] [phone] Magnolia Blood PA-C [address] [place] [address], [facility] 2 [place] [phone] documented as of this encounter Procedures Procedure Name Priority Date/Time Associated Diagnosis Comments MA 2D/3D BILATERAL CINDY ROUTINE SCREENING MAMMO 04/20/2017 8:49 EDT documented in this encounter Results * MA 2D/3D BILATERAL CINDY ROUTINE SCREENING MAMMO (04/20/2017 8:49 EDT) Anatomical Region Laterality Modality Other 04/20/2017 8:49 EDT 04/20/2017 9:07 EDT Narrative 04/20/2017 9:07 EDT 2D/3D BILATERAL CINDY ROUTINE SCREENING MAMMO ??04/20/2017 8:49 AM Signs and Symptoms/Comments: ?? routine Bilateral routine screening 3-D C view mammography was performed in the standard MLO and CC projections with CAD. ??The breast tissue is extremely dense, limiting interpretation.. FINDINGS: Bilateral obscured nodularity is redemonstrated and consistent with a known and ultrasound demonstrated history of numerous cysts and benign-appearing fibrocystic nodules as well as with a benign biopsied lobulated mass in the right breast at 7 o'clock 4.5 cm from the nipple which demonstrated dense intralobular fibrosis. There are no new concerning calcifications and no areas of architectural distortion are seen in either breast. Impression both breasts: BI-RADS Category 2, benign. Recommendation: Annual screening mammography. As previously suggested, consider annual screening breast sonography as well given the patient's extremely dense parenchymal pattern by mammography. Overall assessment: Benign. The patient was told the results and recommendations following the study by the technologist. The patient will be notified of these breast imaging results via a lay letter from Radiology. Radiology will contact the patient directly regarding any findings which require additional imaging (Category 0) at this time. Procedure Note Ha Elise MD - 04/20/2017 2D/3D BILATERAL CINDY ROUTINE SCREENING MAMMO 04/20/2017 8:49 AM Signs and Symptoms/Comments: routine Bilateral routine screening 3-D C view mammography was performed in the standard MLO and CC projections with CAD. The breast tissue is extremely dense, limiting interpretation.. FINDINGS: Bilateral obscured nodularity is redemonstrated and consistent with a known and ultrasound demonstrated history of numerous cysts and benign-appearing fibrocystic nodules as well as with a benign biopsied lobulated mass in the right breast at 7 o'clock 4.5 cm from the nipple which demonstrated dense intralobular fibrosis. There are no new concerning calcifications and no areas of architectural distortion are seen in either breast. Impression both breasts: BI-RADS Category 2, benign. Recommendation: Annual screening mammography. As previously suggested, consider annual screening breast sonography as well given the patient's extremely dense parenchymal pattern by mammography. Overall assessment: Benign. The patient was told the results and recommendations following the study by the technologist. The patient will be notified of these breast imaging results via a lay letter from Radiology. Radiology will contact the patient directly regarding any findings which require additional imaging (Category 0) at this time. Indy VARGAS MAMMOGRAPHY ORDERABLES documented in this encounter Visit Diagnoses Not on filedocumented in this encounter Care Teams Dehydrating Press Operator Relationship Specialty Start Date End Date Indy Champion MD [address] [place] [address] PCP - General 04/15/15 documented as of this encounter
--- OUTSIDE RECORDS SUMMARY | 2024-03-20 21:36 | XMS_ITS | Encounter Summary ---
Author Organization [facility] Address [address] [place] [address] Care Team Providers Care Cake Maker Name Role Phone Indy Champion MD Primary Care Provider Reason for Visit * Reason Comments Follow-up Encounter Details Date Type Department Care Team (Late st Contact Info) Description 04/20/2017 9:30 EDT Office Visit [facility] Surgical Oncology - [address] [phone] Indy Stein PA-C [address] [place] [address], [address] [place] [address] Diffuse cystic mastopathy of both [...] Sign Reading Time Taken Comments Blood Pressure 132/63 04/20/2017 0929 EDT Pulse 50 04/20/2017 0929 EDT Temperature 36.2 ??C (97.1 ??F) 04/20/2017 0929 EDT Respiratory Rate 12 04/20/2017 09 EDT Oxygen Saturation - - Inhaled Oxygen Concentration [...] as of this encounter Progress Notes * Indy Alston PA - 04/20/2017 0930 EDT Subjective: Patient ID: Sandhya Lomas is an 56 y.o. female. Chief Complaint Patient presents with ??? Follow-up HPI DIVISION OF SURGICAL ONCOLOGY - [facility] FOLLOW-UP/PROGRESS NOTE - 04/20/2017 PROBLEM: 1. Breast density and fibrocystic breast changes. 2. Left ultrasound-guided biopsy completed on November 08, 2016. Pathology was benign and concordant at showing fibrocystic changes included papillary apocrine hyperplasia and dense interlobular fibrosis. SUBJECTIVE: Sandhya Lomas is a 56 y.o. old female who is here today for her high-risk screening breast exam. Sandhya [facility] due to dense fibrocystic breast tissue. She denies change in her family history since last visit. Screening has included annual mammography and high risk screening ultrasound. Sandhya has had a breast biopsy in the past. She does perform regular self breast exams. She has not noticed any new areas of concern, and denies any changes inbreast skin or nipple discharge. RESPIRATORY CARE PRACTITIONER HISTORY: 2, para 2. Menarche at age 14. First delivery at age 36. Perimenopausal. SOCIAL HISTORY: Sandhya is and lives in [place]. She has two sons. 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 She has one son studying film out in [place] and another son who recently transferred to [place] for loss [employer]. FAMILY HISTORY: No family history of breast [...] MOHS SURGERY 11/2009 basal cell carcinoma, right jain Family History Problem Relation Age of Onset ??? Cancer Mother 68 lung ??? Diabetes Father ??? Cancer Maternal Aunt 58 lungs/p smoking ??? Cancer Maternal Uncle 60 lungs/p smoking ??? Rheumatologic Disease Paternal Grandmother lupus Social Social History Substance Use Topics ??? Smoking status: Never Smoker ??? Smokeless tobacco: Never Used ??? Alcohol use 4.2 oz/week 7 Glasses of wine per week Comment: 1 glass wine q evening Current Outpatient Prescriptions on File Prior to Visit Medication Sig Dispense Refill ??? acyclovir (ZOVIRAX) 5 % ointment Apply to lip at onset of tingling. Can three times per day (Patient not taking: Reported on 04/20/2017) 1 Tube 1 ??? valacyclovir (VALTREX) 1 g tablet Take 0.5 Tabs by mouth 2 times daily. For three days at the earliest onset of symptoms (Patient not taking: Reported on 03/10/2016) 18 Tab 1 ??? VITAMIN E/FLAXSEED OIL (OMEGA-3 FLAXSEED OIL ORAL) Take 1 Tab by mouth daily. No current facility-administered medications on file prior to visit. No Known Allergies Review of Systems Constitutional: Negative for chills, fever, malaise/fatigue and weight loss. HENT: Negative for ear pain and sore throat. Eyes: Negative for pain. Respiratory: Negative for cough, hemoptysis, shortness of breath and wheezing. Cardiovascular: Negative for chest pain, claudication and leg swelling. Gastrointestinal: Negative for abdominal pain, blood in stool, melena, nausea and vomiting. Genitourinary: Negative for flank pain. Skin: Negative for rash. Neurological: Negative for dizziness, tremors, speech change, focal weakness, seizures and loss of consciousness. Psychiatric/Behavioral: Negative for hallucinations, substance abuse and suicidal ideas. - See HPI Objective: BP 132/63 Pulse 50 Temp 36.2 ??C (97.1 ??F) (Tympanic) Resp 12 Physical Exam Constitutional: She is oriented to person, place, and time. Vital signs are normal. She appears well-developed and well-nourished. She does not appear ill. No distress. HENT: Head: Normocephalic and atraumatic. Eyes: Right eye exhibits no discharge. Left eye exhibits no discharge. No scleral icterus. Cardiovascular: Normal rate and regular rhythm. Exam reveals no gallop and no friction rub. Pulmonary/Chest: Effort normal and breath sounds normal. No respiratory distress. She has no wheezes. She has no rhonchi. She has no rales. Breast: Breasts and axilla are examined in the seated and the supine position. Diffuse fibrocystic tissue noted throughout both breasts. There are no discrete or obvious palpable abnormalities appreciated in either breast. There is no skin puckering, dimpling, nipple inversion/change, or nipple discharge. There is no obvious discoloration of the breast. There are no axillary masses. Abdominal: Soft. She exhibits no distension. Lymphadenopathy: She has no cervical adenopathy. She has no axillary adenopathy. Right: No supraclavicular adenopathy present. Left: No supraclavicular adenopathy present. Neurological: She is alert and oriented to person, place, and time. Coordination normal. Skin: Skin is warm and dry. No rash noted. She is not diaphoretic. No erythema. No pallor. Psychiatric: She has a normal mood and affect. Her behavior is normal. Judgment and thought contentnormal. Vitals reviewed. Mammogram was completed on April 20, 2017 and reported as BI-RADS 2. High-risk screening ultrasound was completed in November [id number] and ultimately led to a benign but can coordinate left ultrasound-guided biopsy. Assessment: Lianet continues to follow with us due to dense fibrocystic breast tissue. We continue to recommend annual mammography was supplementing high-risk renal ultrasound once annually. She continues to be very amenable to this plan. Her clinical breast evaluation today stable and compared to previous notes and there is no evidence for malignancy. Plan: 1. Sandhya will be scheduled for her next mammogram in 12 months, as well as other imaging: HR screening US in 6 months. 2. She will return to clinic in 12 months for her next breast exam. 6 months with PCP or RESPIRATORY CARE PRACTITIONER for anadditional CBE. 3. She is also encouraged to perform self-breast exams and return to clinic sooner if she has any changes or concerns. Patient was seen for 25 minutes and 15 minutes were spent in face to face counseling regarding family history of breast and/or ovarian cancer and personal risk for occurrence. Today we developed an appropriate screening plan for our patient in regards to their risk. I was directly supervised by our clinic physician Dr. Fajardo, who was in the suite and immediately available for the entire time the above documented service was provided. Portions of this document may have been prepared with speech recognition software or keyboard data technical lead techniques. Minor irregularities or keyboarding misprints may be present. (N60.12, N60.11) Diffuse cystic mastopathy of both breasts (primary encounter diagnosis) URI Son No orders of the defined types were placed in this encounter. * Michael Fajardo MD - 04/20/2017 0930 EDT I was available for consultation on this patient. documented in this encounter Plan of Treatment Upcoming Encounters Date Type Department Care Team (Late st Contact Info) Description 03/21/2024 8:30 EDT Appointment Karin Danielle Ultrasound [address] [place] [address] 04/17/2024 10:50 EDT Appointment [facility] Endoscopy - [facility] [address] [place], [place] [phone] Marcellus Walsh MD 111 [facility], Level [address] [place] [phone] 05/01/2024 13:30 EDT Appointment [facility] Breast Imaging - [address] [phone] 05/15/2024 15:00 EST Telemedicine [facility] Gastroenterology - [address] [phone] Madhu Park MD PhD 111 [facility], [facility] 5 [place] [phone] 12/10/2024 11:30 EDT Office Visit [facility] Surgical Oncology - [address] [phone] Magnolia Blood PA-C 111 [facility], [facility] 2 [place] [phone] documented as of this encounter Procedures Procedure Name Priority Date/Time Associated Diagnosis Comments ORDERS - SCANNED 06/22/2017 12:53 EST documented in this encounter Results * ORDERS - SCANNED (06/22/2017 12:53 EST) 06/22/2017 12:5 3 EST Scan 2 Higher Level Teaching Assistant ADMISSION ORDERABLE S documented in this encounter Visit Diagnoses Diagnosis Diffuse cystic mastopathy of both breasts- Primary documented in this encounter Care Teams Cake Maker Relationship Specialty Start Date End Date Indy Champion MD 7 [place], [place] [phone] PCP - General 04/15/15 documented as of this encounter
--- OUTSIDE RECORDS SUMMARY | 2024-03-20 21:36 | XMS_ITS | Encounter Summary ---
Author Organization [facility] Address [address] [place] [address] Care Team Providers Care Goat Farmer Name Role Phone Indy Champion MD Primary Care Provider Reason for Referral * Radiology Services (Routine) - Closed Specialty Diagnoses / Procedures [facility] Referred To Contact Diagnoses Dense breast tissue on mammogram Procedures US ABUS BREAST SCREENING BILATERAL US BREAST SCREENING ONLY BILATERAL Magnolia Blood PA-C [address] [place] [phone] Referral ID Status Reason Start Date Expiration Date Visits Re quested Visits Authorized [id number] Closed 08/22/2020 1 1 Reason for Visit * Reason Onset Date Comments Complex Medical Problems 07/02/2020 Encounter Details Date Type Department Care Team (Late st Contact Info) Description 07/02/2020 Orders Only [facility] Surgical Oncology - [address] [phone] Magnolia Blood PA-C [address] [place] [phone] Dense breast tissue on mammogram (Primary [...] 8:30 EDT Appointment [facility]in Danielle Ultrasound 0 [place], [place] [address]266 04/17/2024 10:50 EDT Appointment [facility] Endoscopy - [address] [phone] Marcellus Walsh MD [address] [place] [phone] 05/01/2024 13:30 EDT Appointment [facility] Breast Imaging - [address] [phone] 05/15/2024 15:00 EST Telemedicine [facility] Gastroenterology - [address] 109551 Madhu Park MD PhD [address] [phone] 12/10/2024 11:30 EDT Office Visit [facility] Surgical Oncology - [facility] [address] [place], [place] [phone] Magnolia Blood PA-C 111 [facility], [facility], Level 2 [place] [phone] documented as of this encounter Results * US ABUS BREAST [...] ultrasound was performed using the 6-15 MHz [email or web address] ABUS device. All 4 quadrants and the [...] any findings which require additional imaging. Magnolia Blood PA-C [facility] US ORDERABL ES documented in this encounter Visit Diagnoses Diagnosis Dense breast tissue on mammogram- Primary Dense breast tissue on mammogram documented in this encounter Care Teams Goat Farmer Relationship Specialty Start Date End Date Indy Champion MD [address] [place] [address] PCP - General 04/15/15 documented as of this encounter
--- OUTSIDE RECORDS SUMMARY | 2024-03-20 21:36 | XMS_ITS | Encounter Summary ---
Author Organization [facility] Address [address] [place] [address] Care Team Providers Care Aerospace Engineer Officer Armament Name Role Phone Indy Champion MD Primary Care Provider Encounter Details Date Type Department Care Team (Late st Contact Info) Description 04/25/2018 7:48 EDT - 04/25/2018 23:[address] [facility] [address] [place] [address] [place] [address] Discharge Disposition: Auto Discharge Social History Tobacco [...] neoplasm of breast-Z12.31[ICD-10-CM] documented in this encounter Medications at Time [...] Auto Discharge Home documented in this encounter Plan of Treatment Upcoming Encounters Date Type Department Care Team (Late st Contact Info) Description 03/21/2024 8:30 EDT Appointment Karin Danielle Ultrasound 0 [place] [address] 04/17/2024 10:50 EDT Appointment [facility] Endoscopy - [address] 405441 Marcellus Walsh MD [address] [place] [address] [phone] 05/01/2024 13:30 EDT Appointment [facility] Breast Imaging - [address] [phone] 05/15/2024 15:00 EST Telemedicine [facility] Gastroenterology - [address] 327461 Madhu Park MD PhD [address] [place] [address] [phone] 12/10/2024 11:30 EDT Office Visit [facility] Surgical Oncology - [address] 176201 Magnolia Blood PA-C 111 [facility], Level 2 [place] [phone] documented as of this encounter Visit Diagnoses Not on filedocumented in this encounter Care Teams Aerospace Engineer Officer Armament Relationship Specialty Start Date End Date Indy Champion MD 7 [place] [address] PCP - General 04/15/15 documented as of this encounter
--- OUTSIDE RECORDS SUMMARY | 2024-03-20 21:36 | XMS_ITS | Encounter Summary ---
Author Organization [facility] Address [address] [place] [address] Care Team Providers Care Conformal Pad Former Name Role Phone Indy Champion MD Primary Care Provider Encounter Details Date Type Department Care Team (Latest Contact Info) Description 02/14/2020 Travel Social History Tobacco Use Types Packs/Day [...] Description 03/21/2024 8:30 EDT Appointment Karin Danielle [address] [address] 04/17/2024 10:50 EDT Appointment [facility] Endoscopy - [address] [phone] Marcellus Walsh MD [address] [place] [address], [facility] 5 [place] [phone] 05/01/2024 13:30 EDT Appointment [facility] Breast Imaging - [address] [phone] 05/15/2024 15:00 EST Telemedicine [facility] Gastroenterology - [address] 245771 Madhu Park MD PhD [address] [place] [address], [facility] 5 [place] [phone] 12/10/2024 11:30 EDT Office Visit [facility] Surgical Oncology - [address] [phone] Magnolia Blood, PA-C [address] [place] [address], Level [address] [place] [phone] documented as of this encounter Visit Diagnoses Not on filedocumented in this encounter Care Teams Conformal Pad Former Relationship Specialty Start Date End Date Indy Champion MD [address] [place] [address] [id number] PCP - General 04/15/15 documented as of this encounter
--- OUTSIDE RECORDS SUMMARY | 2024-03-20 21:36 | XMS_ITS | Encounter Summary ---
Author Organization [facility] Address [address] [place] [address] Care Team Providers Care Photograph Tinter Name Role Phone Indy Champion MD Primary Care Provider Reason for Visit * Reason Onset Date Comments Appointment Related 09/14/2019 Encounter Details Date Type Department Care Team (Late st Contact Info) Description 09/14/[facility] - [address] [address] Viktoria Herr Appointment Related Social History Tobacco [...] * Telephone Encounter - Viktoria Herr - 09/14/2019 5117 EST Reached patient and she is now scheduled for breast imaging on 12/19/19 documented in this encounter Plan of Treatment Upcoming Encounters Date Type Department Care Team (Late st Contact Info) Description 03/21/2024 8:30 EDT Appointment Karin Danielle Ultrasound [address] [place] [address] 04/17/2024 10:50 EDT Appointment [facility] Endoscopy - [address] 225891 Marcellus Walsh MD [address] [place] [address] [phone] 05/01/2024 13:30 EDT Appointment [facility] Breast Imaging - [address] [phone] 05/15/2024 15:00 EST Telemedicine [facility] Gastroenterology - [address] [phone] Madhu Park MD PhD [address] [place] [address] [phone] 12/10/2024 11:30 EDT Office Visit [facility] Surgical Oncology - [address] [phone] Magnolia Blood PA-C [address] [place] [address], [facility] 2 [place] [phone] documented as of this encounter Visit Diagnoses Not on filedocumented in this encounter Care Teams Photograph Tinter Relationship Specialty Start Date End Date Idny Champion MD 7 [place] [address] PCP - General 04/15/15 documented as of this encounter
--- OUTSIDE RECORDS SUMMARY | 2024-03-20 21:36 | XMS_ITS | Encounter Summary ---
Author Organization [facility] Address [address] [place] [address] Care Team Providers Care Auto Damage Estimator Name Role Phone Indy Champion MD Primary Care Provider Reason for Visit * Reason Onset Date Comments Provider Referred 01/18/2019 Encounter Details Date Type Department Care Team (Late st Contact Info) Description 01/18/2019 Telephone [facility] Dermatology 5[address] [address] Frederick Romero MD [address] [place] [address], Level [address] [place] [phone] Provider Referred Social History Tobacco Use Types Packs/Day Years [...] encounter Miscellaneous Notes * Telephone Encounter - Regina Waldrop - 01/25/2019 1100 EDT Patient is scheduled to see Dr. Frederick Romero on 03/06/19 at 9:00 am. Patient is aware of the procedure and verbalized a good understanding, Fax sent back to referring office. * Telephone Encounter - Regina Waldrop - 01/23/2019 1430 EDT Notes and pathology received * Telephone Encounter - Priya Leonard - 01/18/2019 1558 EDT Reason for referral: Right [facility] Referring Provider: URI Holley Notes and pathology to follow Patient has been in office for a mohs procedure before, last seen in clinic on 03.10.19 for a followup with Dr. Romero documented in this encounter Plan of Treatment Upcoming Encounters Date Type Department Care Team (Late st Contact Info) Description 03/21/2024 8:30 EDT Appointment Karin Danielle Ultrasound [address] [place] [address] 04/17/2024 10:50 EDT Appointment [facility] Endoscopy - [address] [phone] Marcellus Walsh MD 111 [facility], Level [address] [place] [phone] 05/01/2024 13:30 EDT Appointment [facility] Breast Imaging - [address] 105111 05/15/2024 15:00 EST Telemedicine [facility] Gastroenterology - [address] [phone] Madhu Park MD PhD 111 [facility], Level 5 [place] [phone] 12/10/2024 11:30 EDT Office Visit [facility] Surgical Oncology - [facility] [place] [facility] [address] [place], [place] [phone] Magnolia Blood, PA-C 111 [facility], Level [address] [place] [phone] documented as of this encounter Visit Diagnoses Not on filedocumented in this encounter Care Teams Auto Damage Estimator Relationship Specialty Start Date End Date Indy Champion MD 7 [place] [address] PCP - General 04/15/15 documented as of this encounter
--- OUTSIDE RECORDS SUMMARY | 2024-03-20 21:36 | XMS_ITS | Encounter Summary ---
Author Organization [facility] Address [address] [place] [address] Care Team Providers Care Mill Laborer Name Role Phone Indy Champion MD Primary Care Provider Encounter Details Date Type Department Care Team (Late st Contact Info) Description 11/22/2018 13:52 EDT - 11/22/2018 23:59 EDT Hospital Encounter [address] [address] Magnolia Blood PAJacques 111 [facility] 2 [place] [phone] Discharge Disposition: Auto Discharge Social History Tobacco [...] as of this encounter Discharge Diagnoses Diagnosis R92.2 Inconclusive mammogram-R92.2[ICD-10-CM] documented in this encounter Medications at Time [...] 8:30 EDT Appointment Karin Danielle Ultrasound 0 [place] [address] 04/17/2024 10:50 EDT Appointment [facility] Endoscopy - [address] 886191 Marcellus Walsh MD [address] [place] [address] [phone] 05/01/2024 13:30 EDT Appointment [facility] Breast Imaging - [address] [phone] 05/15/2024 15:00 EST Telemedicine [facility] Gastroenterology - [address] 424371 Madhu Park MD PhD [address] [place] [address] [phone] 12/10/2024 11:30 EDT Office Visit [facility] Surgical Oncology - [address] 768501 Magnolia Blood, PA-C [address] [place], Level [address] [place] [phone] documented as of this encounter Visit Diagnoses Not on filedocumented in this encounter Care Teams Mill Laborer Relationship Specialty Start Date End Date Indy Champion MD 7 [place] [address] PCP - General 04/15/15 documented as of this encounter
--- OUTSIDE RECORDS SUMMARY | 2024-03-20 21:36 | XMS_ITS | Encounter Summary ---
Author Organization [facility] Address [address] [place] [address] Care Team Providers Care Allergy And Immunology Chief Name Role Phone Indy Chapmion MD Primary Care Provider Reason for Visit * Reason Onset Date Comments Follow-up 04/25/2018 HR U/S Encounter Details Date Type Department Care Team (Late st Contact Info) Description 04/25/2018 Orders Only [facility] Surgical Oncology - [address] [address] Magnolia Blood, PAPrabhaC 111 [facility], Level 2 [place] [phone] Diffuse cystic mastopathy of right breast (Primary Dx); Diffuse cystic mastopathy of left breast Social History Tobacco Use Types Packs/Day Years [...] 8:30 EDT Appointment Karin Danielle Ultrasound [address] [place] [address] 04/17/2024 10:50 EDT Appointment [facility] Endoscopy - [address] 161581 Marcellus Walsh MD [address] [place] [phone] 05/01/2024 13:30 EDT Appointment [facility] Breast Imaging - [address] [phone] 05/15/2024 15:00 EST Telemedicine [facility] Gastroenterology - [address] [phone] Madhu Park MD PhD [address] [place] [address] [phone] 12/10/2024 11:30 EDT Office Visit [facility] Surgical Oncology - [address] [phone] Magnolia Blood PAPrabhaC [address] [place] [address], [facility] 2 [place] [phone] documented as of this encounter Procedures Procedure Name Priority Date/Time Associated Diagnosis Comments RAD ABUS SCREENING BILATERAL Routine 11/22/2018 14:37 EDT documented in this encounter Results * RAD ABUS SCREENING BILATERAL (11/22/2018 14:37 EDT) Anatomical Region Laterality Modality Other 11/22/2018 14:3 7 EDT 11/28/2018 16:40 EDT Narrative 11/28/2018 16:40 EDT RAD ABUS SCREENING BILAT ??11/22/2018 2:37 PM Clinical History/Comments: N60.11-Diffuse cystic mastopathy of right aifwmq-GGZ-29 N60.12-Diffuse cystic mastopathy of left cqmnlu-MML-99; High risk screening due to increased breast density on mammogram Comparisons: RAD ABUS SCREENING BILAT ??11/22/2018 2:37 PM Clinical History/Comments: N60.11-Diffuse cystic mastopathy of right mriapk-SPG-25 N60.12-Diffuse cystic mastopathy of left cznpjc-WMV-87; High risk screening due to increased breast density on mammogram Comparisons: Mammograms dated April 2018, April 2017, October 2016, April 2016, April 2015, April 2013, April 2012, March 2011. Screening whole breast ultrasound dated October 10, 2014, October 15, 2015, November 03, 2016, November 02, 2017. Technique: 3-D automated breast ultrasound was performed using the 6-15 MHz [employer]ytro ABUS device. All 4 quadrants and the [...] November 2019. Overall Assessment: BI-RADS 2: Benign. The patient will be notified of her breast imaging results via a lay letter from Radiology. ??Radiology will contact the patient directly regarding any findings which require additional imaging. Technique: 3-D automated breast ultrasound was performed using the 6-15 MHz [employer] Invenia ABUS device. All 4 quadrants and the subareolar regions were examined. These images and multiplanar reformats were reviewed on a dedicated workstation. Findings Right Breast: Background echotexture: No suspicious ultrasound findings are identified. Findings Left Breast: Background echotexture: No suspicious ultrasound findings are identified. Impression Right Breast: Impression Left Breast: Recommendation Bilateral Breasts: Overall Assessment: The patient will be notified of her breast imaging results via a lay letter from Radiology. ??Radiology will contact the patient directly regarding any findings which require additional imaging. Procedure Note Maeve Pablo MD - 11/28/2018 RAD ABUS SCREENING BILAT 11/22/2018 2:37 PM Clinical History/Comments: N60.11-Diffuse cystic mastopathy of right kuowgc-NAY-07 N60.12-Diffuse cystic mastopathy of left pjvsek-XZV-45; High risk screening due to increased breast density on mammogram Comparisons: RAD ABUS SCREENING BILAT 11/22/2018 2:37 PM Clinical History/Comments: N60.11-Diffuse cystic mastopathy of right wtzamq-KMC-42 N60.12-Diffuse cystic mastopathy of left ocqczg-AMG-71; High risk screening due to increased breast [...] November 2019. Overall Assessment: BI-RADS 2: Benign. The patient will be notified of her breast imaging results via a lay letter from Radiology. Radiology will contact the patient directly regarding any findings which require additional imaging. Technique: 3-D automated breast ultrasound was performed using the 6-15 MHz [employer] ABUS device. All 4 quadrants and the subareolar regions were examined. These images and multiplanar reformats were reviewed on a dedicated workstation. Findings Right Breast: Background echotexture: No suspicious ultrasound findings are identified. Findings Left Breast: Background echotexture: No suspicious ultrasound findings are identified. Impression Right Breast: Impression Left Breast: Recommendation Bilateral Breasts: Overall Assessment: The patient will be notified of her breast imaging results via a lay letter from Radiology. Radiology will contact the patient directly regarding any findings which require additional imaging. Magnolia VARGAS US ORDERABL ES documented in this encounter Visit Diagnoses Diagnosis Diffuse cystic mastopathy of right breast- Primary Diffuse cystic mastopathy Diffuse cystic mastopathy of left breast Diffuse cystic mastopathy documented in this encounter Care Teams Allergy And Immunology Chief Relationship Specialty Start Date End Date Indy Champion MD [address] [place] [address] PCP - General 04/15/15 documented as of this encounter
--- OUTSIDE RECORDS SUMMARY | 2024-03-20 21:36 | XMS_ITS | Encounter Summary ---
Author Organization [facility] Address [address] [place] [address] Care Team Providers Care Quality Intern Name Role Phone Indy Champion MD Primary Care Provider Encounter Details Date Type Department Care Team (Latest Contact Info) Description 08/06/2020 Travel Social History Tobacco Use Types Packs/Day [...] have Coronavirus / COVID-19? No / Unsure 08/06/2020 17:28 EST documented as of this encounter Functional [...] Description 03/21/2024 8:30 EDT Appointment Karin Saul [address] [place] [address] 04/17/2024 10:50 EDT Appointment [facility] Endoscopy - [address] [phone] Marcellus Walsh MD [address] [place] [address], [facility] 5 [place] [phone] 05/01/2024 13:30 EDT Appointment [facility] Breast Imaging - [address] 715951 05/15/2024 15:00 EST Telemedicine [facility] Gastroenterology - [address] [phone] Madhu Park MD PhD [address] [place] [address], [facility] 5 [place] [phone] 12/10/2024 11:30 EDT Office Visit [facility] Surgical Oncology - [address] [phone] Magnolia Blood, PA-C [address] [place] [address], [facility] 2 [place] [phone] documented as of this encounter Visit Diagnoses Not on filedocumented in this encounter Care Teams Quality Intern Relationship Specialty Start Date End Date Indy Champion MD 7 [place], [place] 314931 PCP - General 04/15/15 documented as of this encounter
--- OUTSIDE RECORDS SUMMARY | 2024-03-20 21:36 | XMS_ITS | Encounter Summary ---
Author Organization [facility] Address [address] [place] [address] Care Team Providers Care Pain Management Nurse Practitioner Name Role Phone Indy Champion MD Primary Care Provider Reason for Visit * Reason Onset Date Comments Appointment Related 06/10/2020 Encounter Details Date Type Department Care Team (Late st Contact Info) Description 06/10/2020 Telephone [facility] Surgical Oncology - [facility] [address] [place] [address] Magnolia Blood PAPrabhaC [address] [place] [address], Level 2 [place] [phone] Appointment Related Social History Tobacco [...] * Telephone Encounter - Lety Chacon - 06/10/2020 1532 EST Received a phone call from the pt. In regard to her 06/11/2021. Pt wanting to know if she should postpone this appt. As she has not had her mammo yet or if she should confirm this appt. I let the pt know that she is welcome to still come into clinic for this appt, as Magnolia Saloni be able to view her US results that she had back in February. PT has confirmed this appt. Lety Chacon 06/10/2020 15:40 documented in this encounter Plan of Treatment Upcoming Encounters Date Type Department Care Team (Late st Contact Info) Description 03/21/2024 8:30 EDT Appointment Karin Danielle Ultrasound 7[address] [place], [place] [phone] 04/17/2024 10:50 EDT Appointment [facility] Endoscopy - [address] 059781 Marcellus Walsh MD [address] [place] [phone] 05/01/2024 13:30 EDT Appointment [facility] Breast Imaging - [address] 614091 05/15/2024 15:00 EST Telemedicine [facility] Gastroenterology - [address] [phone] Madhu Park MD PhD [address] [place] [address] [phone] 12/10/2024 11:30 EDT Office Visit [facility] Surgical Oncology - [address] [place] [address] Magnolia Blood PA-C 111 [facility], Level 2 [place] [phone] documented as of this encounter Visit Diagnoses Not on filedocumented in this encounter Care Teams Pain Management Nurse Practitioner Relationship Specialty Start Date End Date Indy Champion MD [address] [place] [address] PCP - General 04/15/15 documented as of this encounter
--- OUTSIDE RECORDS SUMMARY | 2024-03-20 21:36 | XMS_ITS | Encounter Summary ---
Author Organization [facility] Address [address] [place] [address] Care Team Providers Care Scientific Systems Analyst Name Role Phone Indy Champion MD Primary Care Provider Encounter Details Date Type Department Care Team (Late st Contact Info) Description 01/02/2018 Results Only [facility]- [facility] [phone] Zacarias Santos MD [address] [place] [phone] Social History Tobacco Use Types Packs/Day [...] Description 03/21/2024 8:30 EDT Appointment Karin Danielle [address] [phone] [place], [place] 307376 04/17/2024 10:50 EDT Appointment [facility] Endoscopy - [address] [phone] Marcellus Walsh MD [address] [place] [address] [address] [phone] 05/01/2024 13:30 EDT Appointment [facility] Breast Imaging - [address] [phone] 05/15/2024 15:00 EST Telemedicine [facility] Gastroenterology - [address] [phone] Madhu Park MD PhD [address] [place], [place] [phone] 12/10/2024 11:30 EDT Office Visit [facility] Surgical Oncology - [address] [phone] Magnolia Blood, PA-C [address] [place] [address], [facility] 2 [place] [phone] documented as of this encounter Procedures Procedure Name Priority Date/Time Associated Diagnosis Comments SURGICAL PATHOLOGY Routine 01/02/2018 15 :32 EDT documented in this encounter Results * SURGICAL PATHOLOGY (01/02/2018 15:32 EDT) Pathology Report: SURGICAL PATHOLOGY REPORT Reports generated via electronic interface contain original data; however they are lacking the format of the original report. Caution should be taken when reading/interpret ing unformatted reports. Name: ? SANDHYA BARRETT ? Accession #: ? [id number] ? : ? 1960 (Age: 57) ??F ? Collect Date: ? 01/02/2018 ? Location: ? [facility] ? Receive Date: ? 01/03/2018 ? Provider: ZACARIAS SANTOS MD Copy to: ? Final Pathologic Diagnosis: ENDOMETRIUM, CURETTING: - Scant inactive endometrial glandular epithelium and stroma. - Small fragments of benign endocervical tissue. Document reviewed and electronically signed by: Brisa Moya MD Report ??Date: 01/07/2018 15:31 By the signature above, the attending physician certifies that he/she has personally conducted a gross and/or microscopic examination of the described specimens and rendered or confirmed the above diagnosis. Specimen(s) Received: Endometrial curettings Clinical History: Post MP bleeding, office D&C; clinical diagnosis code: ??N95.0 Gross Description: ? Received in formalin labelled with proper patient identification (initials T, D) and EMC is an aggregate of pink-brown to red-brown soft tissue (1.0 x 0.9 x 0.2 cm). Submitted in toto in 1. URI Sharma (ASCP) 01/03/2018 4:16 PM End of Report [facility] 01/02/2018 15:3 2 EDT 01/03/2018 15:32 EDT Zacarias Santos MD PATHOLOGY ORDERABLES [facility] [address] [place] [address] documented in this encounter Visit Diagnoses Not on filedocumented in this encounter Care Teams Scientific Systems Analyst Relationship Specialty Start Date End Date Indy Champion MD [address] [place] [address] PCP - General 04/15/15 documented as of this encounter
--- OUTSIDE RECORDS SUMMARY | 2024-03-20 21:36 | XMS_ITS | Encounter Summary ---
Author Organization [facility] Address [address] [place] [address] Care Team Providers Care Used Car Lot Attendant Name Role Phone Indy Champion MD Primary Care Provider Encounter Details Date Type Department Care Team (Late st Contact Info) Description 11/02/2017 7:46 EDT - 11/02/2017 23:59 EDT [place] [facility] [place] [address] [place] [address] Nurys Meza MD Bruno, Kimberly Masayo, [place] [address] Discharge Disposition: Auto Discharge Social History Tobacco [...] encounter Discharge Diagnoses Diagnosis R92.2 Inconclusive mammogram-R92.2[ICD-10-CM] N60.12 Diffuse cystic mastopathy of left breast-N60.12[ICD-10-CM] N60.11 Diffuse cystic mastopathy of right breast-N60.11[ICD-10-CM] documented in this encounter Medications at Time [...] 8:30 EDT Appointment Karin Danielle Ultrasound 7[address] [place] [address] 04/17/2024 10:50 EDT Appointment [facility] Endoscopy - [address] [phone] Marcellus Walsh MD [address] [phone] 05/01/2024 13:30 EDT Appointment [facility] Breast Imaging - [address] 524391 05/15/2024 15:00 EST Telemedicine [facility] Gastroenterology - [address] [phone] Madhu Park MD PhD [address] [phone] 12/10/2024 11:30 EDT Office Visit [facility] Surgical Oncology - [facility] [address] [place], [place] 7618[address] Magnolia Blood PA-C 111 [facility], [facility], Level 2 [place] [phone] documented as of this encounter Visit Diagnoses Not on filedocumented in this encounter Care Teams Used Car Lot Attendant Relationship Specialty Start Date End Date Indy Champion MD [address] [place] [address] PCP - General 04/15/15 documented as of this encounter
--- OUTSIDE RECORDS SUMMARY | 2024-03-20 21:36 | XMS_ITS | Encounter Summary ---
Author Organization [facility] Address [address] [place] [address] Care Team Providers Care Vessel Crew Member Name Role Phone Indy Champion MD Primary Care Provider Encounter Details Date Type Department Care Team (Latest Contact Info) Description 03/06/2021 Travel Social History Tobacco Use Types Packs/Day [...] Description 03/21/2024 8:30 EDT Appointment Karin Saul [address] [place] [address] 04/17/2024 10:[address] [facility] Endoscopy - [address] [phone] Marcellus Walsh MD 111 [facility], [facility] 5 [place] [phone] 05/01/2024 13:[address] [facility] Breast Imaging - [address] 536361 05/15/2024 15:[address] [facility] Gastroenterology - [address] 197221 Madhu Park MD PhD [address] [place] [address], [facility] 5 [place] [phone] 12/10/2024 11:[address] [facility] Surgical Oncology - [address] [phone] Magnolia Blood, PA-C [address] [place] [address], [facility] 2 [place] [phone] documented as of this encounter Visit Diagnoses Not on filedocumented in this encounter Care Teams Vessel Crew Member Relationship Specialty Start Date End Date Indy Champion MD [address] [place] [address] [id number] PCP - General 04/15/15 documented as of this encounter
--- OUTSIDE RECORDS SUMMARY | 2024-03-20 21:36 | XMS_ITS | Encounter Summary ---
Author Organization [facility] Address [address] [place] [address] Care Team Providers Care Mobile Device Engineer Name Role Phone Indy Champion MD Primary Care Provider Encounter Details Date Type Department Care Team (Late st Contact Info) Description 04/20/2017 8:19 EDT - 04/20/2017 23:59 EDT Hospital Encounter [facility] [place] [address] [place] [address] Nurys Meza MD Holbrook, Kimberly A, PA-C 111 [facility], Level [address] [place] [phone] Discharge Disposition: Home or Self Care Social [...] No 11/23/2016 documented as of this encounter Discharge Diagnoses [...] 8:30 EDT Appointment Karin Danielle Ultrasound 7[address] [place] [address] 04/17/2024 10:50 EDT Appointment [facility] Endoscopy - [address] 634111 Marcellus Walsh MD [address] [place] [address] [phone] 05/01/2024 13:30 EDT Appointment [facility] Breast Imaging - [address] 113401 05/15/2024 15:00 EST Telemedicine [facility] Gastroenterology - [address] 293431 Madhu Park MD PhD [address] [place] [address] [phone] 12/10/2024 11:30 EDT Office Visit [facility] Surgical Oncology - [address] 718551 Magnolia Blood PA-C [address] [place] [address], Level [address] [place] [phone] documented as of this encounter Visit Diagnoses Not on filedocumented in this encounter Care Teams Mobile Device Engineer Relationship Specialty Start Date End Date Indy Champion MD 7 [place] [address] PCP - General 04/15/15 documented as of this encounter
--- OUTSIDE RECORDS SUMMARY | 2024-03-20 21:36 | XMS_ITS | Encounter Summary ---
Author Organization [facility] Address [address] [place] [address] Care Team Providers Care City Sanitarian Name Role Phone Indy Champion MD Primary Care Provider Reason for Visit * Reason Onset Date Comments Appointment Related 02/27/2021 Encounter Details Date Type Department Care Team (Late st Contact Info) Description 02/27/[address] [phone] Indy Champion MD 109 [employer] [place], [place] [phone] Appointment Related Social History Tobacco Use Types [...] encounter Miscellaneous Notes * Telephone Encounter - Radha Deutsch - 02/27/2021 1517 EDT LM with patients spouse with this information * Telephone Encounter - Nurys Meza MD - 02/27/2021 1125 EDT I apologize but do not have the availability. ( last seen > 10 yrs ago) She may benefit w/ seeing the new docs at Thanks Nurys Meza MD * Telephone Encounter - Radha Deutsch - 02/27/2021 1119 EDT Patient used to see Dr. Meza a few years ogo and is wondering if Dr. Meza would take her back on as a patient? documented in this encounter Plan of Treatment Upcoming Encounters Date Type Department Care Team (Late st Contact Info) Description 03/21/2024 8:30 EDT Appointment Karin Danielle Ultrasound 790 [place], [place] [phone] 04/17/2024 10:50 EDT Appointment [facility] Endoscopy - [facility] [address] [place], [place] [phone] Marcellus Walsh MD 111 [facility], Level 5 [place] [phone] 05/01/2024 13:30 EDT Appointment [facility] Breast Imaging - [facility] [address] 352941 05/15/2024 15:00 EST Telemedicine [facility] Gastroenterology - [facility] [address] [place], [place] [phone] Madhu Park MD PhD 111 [facility], Level 5 [place] [phone] 12/10/2024 11:30 EDT Office Visit [facility] Surgical Oncology - [facility] [address] [place], [place] [phone] Magnolia Blood PA-C 111 [facility], Level [address] [place] [phone] documented as of this encounter Visit Diagnoses Not on filedocumented in this encounter Care Teams City Sanitarian Relationship Specialty Start Date End Date Indy Champion MD 7 [place] [address] PCP - General 04/15/15 documented as of this encounter
--- OUTSIDE RECORDS SUMMARY | 2024-03-20 21:36 | XMS_ITS | Encounter Summary ---
Author Organization [facility] Address [address] [place] [address] Care Team Providers Care Guide Alpine Name Role Phone Indy Champion MD Primary Care Provider Encounter Details Date Type Department Care Team (Latest Contact Info) Description 12/14/2017 15:22 EDT - 12/14/2017 15:23 EDT Hospital Encounter [address] [address] Zacarias Santos MD [address] [place] [phone] Discharge Disposition: Home or Self Care [...] as of this encounter Discharge Diagnoses Diagnosis Z01.419 Encounter for gynecological examination (general) (routine) without abnormal findings-Z01.419[ICD-10-CM] Z11.51 Encounter for screening for human papillomavirus (HPV)-Z11.51[ICD-10-CM] Z12.4 Encounter for screening for malignant neoplasm of cervix-Z12.4[ICD-10-CM] documented in this encounter Medications at Time [...] 8:30 EDT Appointment Karin Danielle Ultrasound 0 [place] [address] 04/17/2024 10:[address] [facility] Endoscopy - [address] [phone] Marcellus Walsh MD [address] [place] [phone] 05/01/2024 13:[address] [facility] Breast Imaging - [address] [phone] 05/15/2024 15:[address] [facility] Gastroenterology - [address] 673431 Madhu Park MD PhD [address] [place] [phone] 12/10/2024 11:[address] [facility] Surgical Oncology - [facility] [address] [place] [address] Magnolia Blood PA-C [address] [place] [address], Level [address] [place] [phone] documented as of this encounter Procedures Procedure Name Priority Date/Time Associated Diagnosis Comments SURGICAL PATHOLOGY Routine 12/19/2017 8:21 EDT documented in this encounter Results * SURGICAL PATHOLOGY (12/19/2017 8:21 EDT) Pathology Report: SURGICAL PATHOLOGY REPORT Reports generated via electronic interface contain original data; however they are lacking the format of the original report. Caution should be taken when reading/interpret ing unformatted reports. Name: ? SANDHYA BARRETT ? Accession #: ? [id number] ? : ? 1960 (Age: 57) ??F ? Collect Date: ? 12/19/2017 ? Location: ? [facility] ? Receive Date: ? 12/20/2017 ? Provider: ZCAARIAS SANTOS MD Copy to: ? Final Pathologic Diagnosis: ENDOMETRIUM, BIOPSY: - ??Scant strips and fragments of inactive endometrium with tubal metaplasia. - ??Scant benign endocervical mucosa. Document reviewed and electronically signed by: ISA ANDREWS MD Report ??Date: 12/21/2017 14:05 By the signature above, the attending physician certifies that he/she has personally conducted a gross and/or microscopic examination of the described specimens and rendered or confirmed the above diagnosis. Specimen(s) Received: Endometrial biopsy Clinical History: Clinical diagnosis code: ??N95.0 Gross Description: ? Received in formalin labelled with proper patient identification (initials T, D) and not otherwise specified is an aggregate of soft dark brown tissue (0.5 x 0.4 x 0.1 cm). Submitted in toto in 1. Miab Ali 12/20/2017 8:35 AM End of Report [facility] 12/19/2017 8:21 EDT 12/20/2017 8:21 EDT Zacarias Santos MD PATHOLOGY ORDERABLES [facility] [address] [place] [address] documented in this encounter Visit Diagnoses Not on filedocumented in this encounter Care Teams Guide Alpine Relationship Specialty Start Date End Date Indy Champion MD 7 [place] [address] PCP - General 04/15/15 documented as of this encounter
--- OUTSIDE RECORDS SUMMARY | 2024-03-20 21:36 | XMS_ITS | Encounter Summary ---
Author Organization [facility] Address [address] [place] [address] Care Team Providers Care Quantitative Strategy Analyst Name Role Phone Indy Champion MD Primary Care Provider Encounter Details Date Type Department Care Team (Late st Contact Info) Description 11/25/2020 Lab Requisition [facility] Pathology & Laboratory Medicine - [facility] [address] [place] [address] Mar Gannon, [facility] 17[address] [facility] [address] [place], [place] [phone] Encounter for gynecological examination (general) (routine) without abnormal findings Social History Tobacco Use Types Packs/Day Years [...] 8:30 EDT Appointment Karin Danielle Ultrasound 790 [place] [address] 04/17/2024 10:50 EDT Appointment [facility] Endoscopy - [address] 248271 Marcellus Walsh MD [address] [place] [phone] 05/01/2024 13:30 EDT Appointment [facility] Breast Imaging - [address] 569781 05/15/2024 15:00 EST Telemedicine [facility] Gastroenterology - [address] [phone] Madhu Park MD PhD [address] [place] [address] 5 [place] [phone] 12/10/2024 11:30 EDT Office Visit [facility] Surgical Oncology - [address] [phone] Magnolia Blood, PA-C [address] [place] [address], [facility] 2 [place] [phone] documented as of this encounter Procedures Procedure Name Priority Date/Time Associated Diagnosis Comments PAP TEST Today 11/25/2020 14:13 EDT Encounter for gynecological examination (general) (routine) without abnormal findings [ICD-10-CM] HPV DNA DETECTION WITH GENOTYPING, PCR Today 11/25/2020 14:13 EDT Encounter for gynecological examination (general) (routine) without abnormal findings [ICD-10-CM] documented in this encounter Results * HUMAN PAPILLOMAVIRUS (HPV) DETECTION-HIGH RISK TYPES (11/25/2020 14:13 EDT) HPV other High Risk types, PCR Negative Negative 12/04/2020 14:25 EDT [facility] Comment:No E6 or E7 mRNA is detected from HPV types 16,18,31,33,35,39,45,51,52,56,58,59,66, and 68 by meal packer mediated amplification. Papanicolaou smear specimen (specimen) CERVIX UTERI STRUCTURE / Unknown 11/25/2020 14:13 EDT 12/02/2020 14:43 EDT Mar Gannon [facility] MICROBIOLOGY - GENERAL ORDERABLES [facility] [address] [place] [address] * PAP TEST (11/25/2020 14:13 EDT) Specimens A. Cervix and/or Endocervix , ThinPrep Imaging System with Manual Evaluation 12/04/2020 14:25 [facility] Specimen Adequacy Satisfactory for Evaluation - transformation zone component present 12/04/2020 14:25 [facility] General Categorization Negative for intraepithelial lesion or malignancy 12/04/2020 14:25 [facility] Attestation . 12/04/2020 14:25 [facility] at 1425 Clinical History Clinical History, Signs, Symptoms, Chief Complaint, Pertaining to This Order: See below 12/04/2020 14:25 T [facility] HPV The result for the Human Papillomavirus (HPV) Detection-High Risk Types is Negative. No E6 or E7 mRNA is detected from HPV types 16,18,31,33,35,39 ,45,51,52,56,58,5 9,66, and 68 by meal packer mediated amplification.Marybel ting was performed on specimen [id number] and was resulted on 12/04/2020 1410 EDT by JACKSON, LAB INSTRUMENT RESULTS IN 12/04/2020 14:25 EDT [facility] Performing Lab [facility] 12/04/2020 14:25 EDT [facility] Scanned Images 12/04/2020 14:25 EDT [facility] Papanicolaou smear specimen (specimen) CERVIX UTERI STRUCTURE / Unknown 11/25/2020 14:13 EDT 11/26/2020 9:38 EDT Mar Gannon [facility] PATHOLOGY ORDER DARCY [facility] [address] [place] [address] documented in this encounter Visit Diagnoses Diagnosis Encounter for gynecological examination (general) (routine) without abnormal findings documented in this encounter Care Teams Quantitative Strategy Analyst Relationship Specialty Start Date End Date Indy Champion MD 7 [place] [address] PCP - General 04/15/15 documented as of this encounter
--- OUTSIDE RECORDS SUMMARY | 2024-03-20 21:37 | XMS_ITS | Encounter Summary ---
Author Organization [facility] Address [address] [place] [address] Care Team Providers Care Dining Room Hostess Name Role Phone Indy Champion MD Primary Care Provider Encounter Details Date Type Department Care Team (Late st Contact Info) Description 10/15/2015 9:49 EDT - 10/15/2015 23:59 EDT Hospital Encounter [facility] [address] [place] [address] Indy Champion [place] [address] Discharge Disposition: Home or Self Care Social [...] as of this encounter Discharge Diagnoses Diagnosis N60.11 Diffuse cystic mastopathy of right breast-N60.11[ICD-10-CM] N60.12 Diffuse cystic mastopathy of left breast-N60.12[ICD-10-CM] N63 Unspecified lump in breast-N63[ICD-10-CM] documented in [...] Code Departure Means Destination Home or Self Group Home documented in this encounter Plan of Treatment Upcoming Encounters Date Type Department Care Team (Late st Contact Info) Description 03/21/2024 8:30 EDT Appointment Karin Danielle Ultrasound 0 [place] [address] 04/17/2024 10:50 EDT Appointment [facility] Endoscopy - [address] 141461 Marcellus Walsh MD [address] [place] [phone] 05/01/2024 13:30 EDT Appointment [facility] Breast Imaging - [address] 420551 05/15/2024 15:00 EST Telemedicine [facility] Gastroenterology - [address] [phone] Madhu Park MD PhD [address] [place] [phone] 12/10/2024 11:30 EDT Office Visit [facility] Surgical Oncology - [facility] [address] [place], [place] 7[address] Magnolia Blood PA-C [address] [place], Level [address] [place] [phone] documented as of this encounter Visit Diagnoses Not on filedocumented in this encounter Care Teams Dining Room Hostess Relationship Specialty Start Date End Date Indy Champion MD [address] [place] [address] PCP - General 04/15/15 documented as of this encounter
--- OUTSIDE RECORDS SUMMARY | 2024-03-20 21:37 | XMS_ITS | Encounter Summary ---
Author Organization [facility] Address [address] [place] [address] Care Team Providers Care Shank Archer Name Role Phone None, Provider Primary Care Provider Unavailabl e Encounter Details Date Type Department Care Team (Late st Contact Info) Description 03/17/2011 11:33 EDT - 03/17/2011 23:59 EDT Hospital [facility] [address] [place] [address] Josh Daniels MD MSc [address] [place] [phone] Discharge Disposition: Home or Self Care Social History Tobacco Use Types Packs/Day Years Used Date Smoking Tobacco: Never Smokeless Tobacco: Never Alcohol Use Standard Drinks/Week Comments Yes 58.3 (1 standard drink = 0.6 oz pure alcohol) Sex and Gender Information Value Date Recorded Sex Assigned at Not on file Gender Identity Female 05/16/2019 10:23 EST Sexual Orientation Not on file documented as of this encounter Medications at Time of Discharge Medication Sig Dispensed Refills Start Date End Date valacyclovir (VALTREX) 1 g tablet Take 0.5 Tabs by mouth 2 times daily. For three days at the earliest onset of symptoms 18 Tab 1 04/29/2010 VITAMIN E/FLAXSEED OIL (OMEGA-3 FLAXSEED OIL ORAL) Take 1 Tab by mouth daily. ERGOCALCIFEROL (VITAMIN D ORAL) Take 2 Tabs by mouth daily. 07/18/2015 FERROUS FUMARATE (IRON ORAL) Take 2 Tabs by mouth daily. 07/18/2015 IBUPROFEN (ADVIL ORAL) Take by mouth as needed. Rarely. 07/18/2015 Multivitamins with Minerals Tab Take 1 Tab by mouth daily. 07/18/2015 polyethylene glycol (GOLYTELY) 236-22.74-6.74 gram suspensionIndications :Special screening for malignant neoplasms, colon Take 4,000 mL by mouth. Follow instructions on 'colonoscopy preparation instructions' sheet. 1 Bottle 0 03/08/2011 07/18/2015 documented as of this encounter Discharge Disposition Disposition Code Departure Means Destination Home or Self Longterm documented in this encounter Plan of Treatment Upcoming Encounters Date Type Department Care Team (Late st Contact Info) Description 03/21/2024 8:30 EDT Appointment Karin Danielle Ultrasound 0 [place], [place] [address]34[address] 04/17/2024 10:50 EDT Appointment [facility] Endoscopy - [address] [phone] Marcellus Walsh MD [address] [place] [address] 5 [place] [phone] 05/01/2024 13:30 EDT Appointment [facility] Breast Imaging - [address] [phone] 05/15/2024 15:00 EST Telemedicine [facility] Gastroenterology - [address] 785961 Madhu Park MD PhD [address] [place] [address] 5 [place] [phone] 12/10/2024 11:30 EDT Office Visit [facility] Surgical Oncology - [address] [phone] Magnolia Blood PAPrabhaC [address] [place] [address], [facility] 2 [place] [phone] documented as of this encounter Visit Diagnoses Not on filedocumented in this encounter Care Teams Shank Archer Relationship Specialty Start Date End Date None, Provider PCP - General 03/10/11 05/26/11 documented as of this encounter
--- OUTSIDE RECORDS SUMMARY | 2024-03-20 21:37 | XMS_ITS | Encounter Summary ---
Author Organization [facility] Address [address] [place] [address] Care Team Providers Care Sanitary Landfill Supervisor Name Role Phone Nurys Meza MD Primary Care Prov ider Unavailable Reason for Visit * Reason Onset Date Comments Follow-up 10/06/2011 Encounter Details Date Type Department Care Team (Late st Contact Info) Description 10/06/2011 Telephone [facility] Surgical Oncology - [facility] [address] [place] [address] Mari Macdonald, RN Follow-up Social History Tobacco Use Types Packs/Day Years Used Date Smoking Tobacco: Never Smokeless Tobacco: Never Alcohol Use Standard Drinks/Week Comments Yes 58.3 (1 standard drink = 0.6 oz pure alcohol) 1 glass wine q evening Sex and Gender Information Value Date Recorded Sex Assigned at Not on file Gender Identity Female 05/16/2019 10:23 EST Sexual Orientation Not on file documented as of this encounter Miscellaneous Notes * Telephone Encounter - Mari Macdonald RN - 10/06/2011 1007 EDT Spoke with patient after having talked with Dr. Daniels. Relayed to her that he reviewed the reports and would recommend Ultrasound. She is getting imaging every six months, alternating mammograms and ultrasounds. Her next appointment is with one of our pie topper in April. She voiced a little concern about this and is still questioning an MRI. Will make the pie topper as well as Dr. Daniels aware of her continued concern. documented in this encounter Plan of Treatment Upcoming Encounters Date Type Department Care Team (Late st Contact Info) Description 03/21/2024 8:30 EDT Appointment Karin Shashi Ultrasound [address] [place], [place] [address] 04/17/2024 10:50 EDT Appointment [facility] Endoscopy - [address] 268471 Marcellus Walsh MD [address] [place] [address] 5 [place] [phone] 05/01/2024 13:30 EDT Appointment [facility] Breast Imaging - [facility] 1 [place], [place] [phone] 05/15/2024 15:00 EST Telemedicine [facility] Gastroenterology - [address] [phone] Madhu Park MD PhD [address] [place] [address] 5 [place] [phone] 12/10/2024 11:30 EDT Office Visit [facility] Surgical Oncology - [address] [phone] Magnolia Blood, PA-C [address] [place] [address], [facility] 2 [place] [phone] documented as of this encounter Visit Diagnoses Not on filedocumented in this encounter Care Teams Sanitary Landfill Supervisor Relationship Specialty Start Date End Date Nurys Meza MD PCP - General 05/27/11 04/14/15 documented as of this encounter
--- OUTSIDE RECORDS SUMMARY | 2024-03-20 21:37 | XMS_ITS | Encounter Summary ---
Author Organization [facility] Address [address] [place] [address] Care Team Providers Care Project Analyst Name Role Phone Indy Champion MD Primary Care Provider Reason for Visit * Reason Onset Date Comments Mohs Consult 06/20/2015 Encounter Details Date Type Department Care Team (Late st Contact Info) Description 06/20/2015 Telephone [facility] Dermatology 3rd [address] [address] Adán Hwang MD [address] [place] [address], Level 5 [place] [address] Mohs Consult Social History Tobacco Use Types Packs/Day Years [...] Miscellaneous Notes * Telephone Encounter - Mari Alicia - 06/24/2015 1102 EST Patient called back and has decided to switch her appointment to for 07/18/15 at 8:30. We canceled the appointment with . Mari Alicia * Telephone Encounter - Mari Alicia - 06/23/2015 1320 EST Spoke with patient and scheduled her to see for Mohs surgery 09/22/15 at 7:45. She did inquire if had sooner openings, which he does. She said that she wanted to check with her primary care first but that she was interested in seeing on 07/28/15. She will call me back later today to confirm. Mari Alicia * Telephone Encounter - Mari Alicia - 06/23/2015 1304 EST SKIN OF NASAL TIP, RIGHT, SHAVE BIOPSY: - Basal cell carcinoma, nodular type. - Basal cell carcinoma present at peripheral and deep tissue edges. * Telephone Encounter - Nicki Conn - 06/20/2015 1452 EST Patient has a basal cell nodular on nasal tip. Patient had mohs surgery previously with Dr. Romero but would like to switch to Dr. Hwang. Can patient be scheduled with Dr. Hwang. Please contact the patient to schedule. documented in this encounter Plan of Treatment Upcoming Encounters Date Type Department Care Team (Late st Contact Info) Description 03/21/2024 8:30 EDT Appointment [facility] Ul[facility]ound 0 [place] [address] 04/17/2024 10:50 EDT Appointment [facility] Endoscopy - [address] [phone] Marcellus Walsh MD [address] [place] [phone] 05/01/2024 13:30 EDT Appointment [facility] Breast Imaging - [address] [phone] 05/15/2024 15:00 EST Telemedicine [facility] Gastroenterology - [address] [phone] Madhu Park MD PhD [address] [place] [phone] 12/10/2024 11:30 EDT Office Visit [facility] Surgical Oncology - [address] [phone] Magnolia Blood PA-C [address] [place] [address], [facility] 2 [place] [phone] documented as of this encounter Visit Diagnoses Not on filedocumented in this encounter Care Teams Project Analyst Relationship Specialty Start Date End Date Indy Champion MD [address] [place] [id number] PCP - General 04/15/15 documented as of this encounter
--- OUTSIDE RECORDS SUMMARY | 2024-03-20 21:37 | XMS_ITS | Encounter Summary ---
Author Organization [facility] Address [address] [place] [address] Care Team Providers Care Supervising Floorperson Name Role Phone Nurys Meza MD Primary Care Prov ider Unavailable Encounter Details Date Type Department Care Team (Late st Contact Info) Description 04/18/2013 Results Only Imaging [facility] Surgical Oncology - [address] [id number] Josh Daniels MD MSc [address] [place] [phone] Social History Tobacco Use Types Packs/Day Years [...] on file documented as of this encounter Plan of Treatment Upcoming Encounters Date Type Department Care Team (Late st Contact Info) Description 03/21/2024 8:30 EDT Appointment [facility] Ultrasound [address] [place], [place] [address] 04/17/2024 10:50 EDT Appointment [facility] Endoscopy - [address] [phone] Marcellus Walsh MD 111 [facility], Level 5 [place] [phone] 05/01/2024 13:30 EDT Appointment [facility] Breast Imaging - [facility] [place] [address] [place], [place] [phone] 05/15/2024 15:00 EST Telemedicine [facility] Gastroenterology - [address] [phone] Madhu Park MD PhD [address] [place] [address], [facility] 5 [place] [phone] 12/10/2024 11:30 EDT Office Visit [facility] Surgical Oncology - [address] [phone] [facility] PAPrabhaC [address] [place] [address], [facility] 2 [place] [phone] documented as of this encounter Visit Diagnoses Not on filedocumented in this encounter Care Teams Supervising Floorperson Relationship Specialty Start Date End Date Nurys Meza MD PCP - General 05/27/11 04/14/15 documented as of this encounter
--- OUTSIDE RECORDS SUMMARY | 2024-03-20 21:37 | XMS_ITS | Encounter Summary ---
Author Organization [facility] Address [address] [place] [address] Care Team Providers Care Real Estate Closing Coordinator Name Role Phone None, Provider Primary Care Provider Unavailabl e Encounter Details Date Type Department Care Team (Latest Contact Info) Description 03/11/2011 9:04 EDT - 03/11/2011 23:59 EDT Hospital Encounter [facility] Endoscopy Outpatient [address] [place] [address] Jeremiah Badillo MD Discharge Disposition: Home or Self Care Social [...] Sign Reading Time Taken Comments Blood Pressure 113/55 03/11/2011 1030 EDT Pulse 53 03/11/2011 1035 EDT Temperature 35.6 ??C (96.1 ??F) 03/11/2011 0930 EDT Respiratory Rate 16 03/11/2011 1035 EDT Oxygen Saturation 100% 03/11/2011 1035 EDT Inhaled Oxygen Concentration - - Weight 58.1 kg (128 lb) 03/11/2011918 EDT Height 165.1 cm (5' 5) 03/11/2011 0919 EDT Body Mass Index 21.3 03/11/2011 0919 EDT documented in this encounter Medications at Time [...] Code Departure Means Destination Home or Self Senior Care documented in this encounter H&P Notes * Jeremiah Badillo MD - 03/11/2011 1127 EDT Sedation for Procedure History & Physical Date: 03/11/2011 Time: 11:27 Location: [address] Planned Procedure: Colonoscopy Chief Complaint/Indications for Procedure: Screening Colonoscopy History Previous Complication with Sedation and/or Anesthesia? No Allergies: No Known Allergies Current Medications: (Not in a hospital admission) Past Medical History: Past Medical History Diagnosis Date ??? Diffuse cystic mastopathy 12/01/2009 ??? Varicella ??? Basal cell carcinoma ??? BCC (basal cell carcinoma), leg 12/11/2010 right vázquez ??? Anemia resolved Iron deficiency anemia winter 2008 ??? Complication of anesthesia difficulty waking from general anesthesia Social History: Past Surgical History Procedure Date ??? Mohs surgery 11/2009 basal cell carcinoma, right pentecostalism ??? Abdomen surgery 1988 dermoid cyst ??? section 1995, 1997 History Substance Use Topics ??? Smoking status: Never Smoker ??? Smokeless tobacco: Never Used ??? Alcohol Use: 35.0 oz/week 7 Glasses of wine per week Family History: Family History Problem Relation Age of Onset ??? Cancer Mother ??? Diabetes Father Review of Systems as pertinent: Physical Exam Vital Signs: BP 113/55 Pulse 53 Temp(Src) 35.6 ??C (96.1 ??F) (Tympanic) Resp 16 Ht 165.1 cm (65) Wt 58.06 kg (128 lb) BMI 21.30 kg/m2 SpO2 100% Heart Examination: Cardiac Regularity: Regular Respiratory Examination: Respiratory Pattern: Regular Breath Sounds Right: Clear Breath Sounds Left: Clear Additional physical exam related to the proposed procedure, patient activity, disease state and treatment as pertinent: Assessment Previous complications with sedation or anesthesia?: No Airway Concerns: None Anesthesia Classification: ASA 1 Fasting Time: Time of last liquid intake: 0500 Date of Last Liquid Intake: 03/11/11 Time of last solid intake: 1830 Date of last solid intake: 03/09/11 Patient Appropriate Candidate for Planned Sedation?: Yes * Jeremiah Badillo MD - 03/11/2011 1026 EDT Sedation for Procedure History & Physical Date: 03/11/2011 Time: 10:26 Location: [address] Planned Procedure: Colonoscopy Chief Complaint/Indications for Procedure: Screening Colonoscopy History Previous Complication with Sedation and/or Anesthesia? No Allergies: No Known Allergies Current Medications: (Not in a hospital admission) Past Medical History: Past Medical History Diagnosis Date ??? Diffuse cystic mastopathy 12/01/2009 ??? Varicella ??? Basal cell carcinoma ??? BCC (basal cell carcinoma), leg 12/11/2010 right vázquez ??? Anemia resolved Iron deficiency anemia winter 2008 ??? Complication of anesthesia difficulty waking from general anesthesia Social History: Past Surgical History Procedure Date ??? Mohs surgery 11/2009 basal cell carcinoma, right pentecostalism ??? Abdomen surgery 1988 dermoid cyst ??? section 1995, 1997 History Substance Use Topics ??? Smoking status: Never Smoker ??? Smokeless tobacco: Never Used ??? Alcohol Use: 35.0 oz/week 7 Glasses of wine per week Family History: Family History Problem Relation Age of Onset ??? Cancer Mother ??? Diabetes Father Review of Systems as pertinent: Physical Exam Vital Signs: BP 117/60 Pulse 56 Temp(Src) 35.6 ??C (96.1 ??F) (Tympanic) Resp 16 Ht 165.1 cm (65) Wt 58.06 kg (128 lb) BMI 21.30 kg/m2 SpO2 100% Heart Examination: Cardiac Regularity: Regular Respiratory Examination: Respiratory Pattern: Regular Breath Sounds Right: Clear Breath Sounds Left: Clear Additional physical exam related to the proposed procedure, patient activity, disease state and treatment as pertinent: Assessment Previous complications with sedation or anesthesia?: No Airway Concerns: None Anesthesia Classification: ASA 1 Fasting Time: Time of last liquid intake: 0500 Date of Last Liquid Intake: 03/11/11 Time of last solid intake: 1830 Date of last solid intake: 03/09/11 Patient Appropriate Candidate for Planned Sedation?: Yes documented in this encounter Procedure Notes * Business Project Manager, Scan - 03/11/2011 0000 EDTAssociated Order(s): PROCEDURE REPORTS - SCANNED documented in this encounter Miscellaneous Notes * Scanned Note-Null - Business Project Manager, Scan - 03/11/2011 0000 EDT * Scanned Note-Null - Business Project Manager, Scan - 03/11/2011 0000 EDT * Brief Op Note - Business Project Manager, Scan - 03/11/2011 0000 EDT documented in this encounter Plan of Treatment Upcoming Encounters Date Type Department Care Team (Late st Contact Info) Description 03/21/2024 8:30 EDT Appointment [facility] Ultrasound [address] [place] [address] 04/17/2024 10:50 EDT Appointment [facility] Endoscopy - [address] [address] Marcellus Walsh MD [address] [place] [phone] 05/01/2024 13:30 EDT Appointment [facility] Breast Imaging - [address] [phone] 05/15/2024 15:00 EST Telemedicine [facility] Gastroenterology - [address] [phone] Madhu Park MD PhD [address] [place] [phone] 12/10/2024 11:30 EDT Office Visit [facility] Surgical Oncology - [facility] [address] [place] [address] [facility] Blood PA-C 111 [facility], [facility], Level 2 [place] [phone] documented as of this encounter Procedures Procedure Name Priority Date/Time Associated Diagnosis Comments PROCEDURE REPORTS - SCANNED 03/12/2011 8:01 EDT documented in this encounter Results * PROCEDURE REPORTS - SCANNED (03/12/2011 8:01 EDT) 03/12/2011 8:01 EDT Narrative Procedure Note Business Project Manager, Scan - 03/11/2011 0:00 EDT Scan Business Project Manager PROCEDURE/MINOR SURG ICAL ORDERABLES documented in this encounter Visit Diagnoses Not on filedocumented in this encounter Administered Medications Inactive Administered Medications - up to 3 most recent administrations Medication Order MAR Action Action Date Dose Rate Site sodium chloride 0.9 % (NS) infusion 30 mL/hr, intravenous, CONTINUOUS, Starting on Jocelin 03/11/11 at 0945, Until 03/13/11 at 0438, Routine, Preprocedure New Bag 03/11/2011 9:32 EDT 30 mL/hr 30 mL/hr documented in this encounter Orders Medications Ordered That Rashid ht Not Have Been Administered Count Last Ordered Date First Ordered Date lactated ringers (LR) infusion 1 03/11/2011 meperidine (PF) (DEMEROL) 10 0 mg/mL injection 25-200 mg 1 03/11/2011 midazolam (VERSED) injection 1-10 mg 1 07/2010 sodium chloride 0.9 % (NS) infusion 1 03/11 Discharge Count Last Ordered Date First Orde red Date DISCHARGE PATIENT 1 03/11/2011 documented in this encounter Care Teams Real Estate Closing Coordinator Relationship Specialty Start Date End Date None, Provider PCP - General 8/31/11 11/16/11 documented as of this encounter
--- OUTSIDE RECORDS SUMMARY | 2024-03-20 21:37 | XMS_ITS | Encounter Summary ---
Author Organization [facility] Address [address] [place] [address] Care Team Providers Care Teacher Dramatics Name Role Phone Indy Champion MD Primary Care Provider Reason for Visit * Reason Comments Follow-up Encounter Details Date Type Department Care Team (Late st Contact Info) Description 04/15/2015 9:00 EDT Office Visit [facility] Surgical Oncology - [address] [phone] Indy Stein PA-C [address] [place] [address], Level 5 [place] [phone] Diffuse cystic mastopathy, unspecified laterality (Primary Dx); Inconclusive mammogram due to dense breasts Social History Tobacco Use Types Packs/Day Years [...] Sign Reading Time Taken Comments Blood Pressure 123/63 04/15/2015 0911 EDT Pulse 53 04/15/2015 09 EDT Temperature 36.5 ??C (97.7 ??F) 04/15/2015 09 EDT Respiratory Rate 12 04/15/2015 09 EDT Oxygen Saturation - - Inhaled [...] as of this encounter Discharge Diagnoses Diagnosis N60.19 Diffuse cystic mastopathy of unspecified breast-N60.19[ICD-10-CM] R92.2 Inconclusive mammogram-R92.2[ICD-10-CM] documented in this encounter Progress Notes * Indy Alston PA - 04/15/2015 0916 EDT Subjective: Patient ID: Sandhya Lomas is an 54 y.o. female. Chief Complaint Patient presents with ??? Follow-up HPI DIVISION OF SURGICAL ONCOLOGY - BREAST [facility] FOLLOW-UP/PROGRESS NOTE - 04/15/2015 PROBLEM: 1. Breast density and fibrocystic breast changes. SUBJECTIVE: Sandhya Lomas is a 54 y.o. old female who is here today for her high-risk screening breast exam. Sandhya established care in the [facility] due to diffuse cystic mastopathy. She denies change in her family history since last visit. Her screening has included yearly mammogramsalternating with screening ultrasounds. Sandhya has never had a breast biopsy. She performs infrequent self breast exams. She has not noticed any new areas of concern, and denies any changes in breast skin or nipple discharge. Sandhya's weight has been stable and she is moderately active. PROPERTY ASSISTANT HISTORY: 2, para 2. Menarche at age 14. First delivery at age 36. Perimenopausal with cycles every 5 months or so. SOCIAL HISTORY: Sandhya is and lives in [place]. She has two sons. 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 FAMILY HISTORY: No family history of breast and/or ovarian cancer. Patient Active Problem List Diagnosis ??? Basal cell carcinoma of skin ??? Inconclusive mammogram due to dense breasts ??? Diffuse cystic mastopathy Past Medical History Diagnosis Date ??? Diffuse cystic mastopathy 12/01/2009 ??? Basal cell carcinoma ??? BCC (basal cell carcinoma), leg 12/11/2010 right vázquez ??? Anemia resolved Iron deficiency anemia winter 2008 ??? Complication of anesthesia difficulty waking from general anesthesia ??? S/P colonoscopy 03/2011 Norm. 10 yr f/u Past Surgical History Procedure Laterality Date ??? Mohs surgery 11/2009 basal cell carcinoma, right amish ??? section 1995, 1997 ??? Abdomen surgery 1988 dermoid cyst Family History Problem Relation Age of Onset ??? Cancer Mother 68 lung ??? Diabetes Father ??? Cancer Maternal Aunt 58 lungs/p smoking ??? Cancer Maternal Uncle 60 lungs/p smoking ??? Rheumatologic Disease Paternal Grandmother lupus Social History Substance Use Topics ??? Smoking status: Never Smoker ??? Smokeless tobacco: Never Used ??? Alcohol Use: 4.2 oz/week 7 Glasses of wine per week Comment: 1 glass wine q evening Current Outpatient Prescriptions on File Prior to Visit Medication Sig Dispense Refill ??? acyclovir (ZOVIRAX) 5 % ointment Apply to lip at onset of tingling. Can three times per day 1 Tube 1 ??? CALCIUM CITRATE/VITAMIN D3 (CALCIUM CITRATE + ORAL) Take by mouth daily. ??? CHASTE TREE ORAL Take by mouth daily. ??? ERGOCALCIFEROL (VITAMIN D ORAL) Take 2 Tabs by mouth daily. ??? FERROUS FUMARATE (IRON ORAL) Take 2 Tabs by mouth daily. ??? IBUPROFEN (ADVIL ORAL) Take by mouth as needed. Rarely. ??? Multivitamins with Minerals Tab Take 1 Tab by mouth daily. ??? polyethylene glycol (GOLYTELY) 236-22.74-6.74 gram suspension Take 4,000 mL by mouth. Follow instructions on 'colonoscopy preparation instructions' sheet. 1 Bottle 0 ??? valacyclovir (VALTREX) 1 g tablet Take 0.5 Tabs by mouth 2 times daily. For three days at the earliest onset of symptoms 18 Tab 1 ??? VITAMIN E/FLAXSEED OIL (OMEGA-3 FLAXSEED OIL ORAL) Take 1 Tab by mouth daily. No current facility-administered medications on file prior to visit. No Known Allergies Review of Systems Constitutional: Negative for fever, chills, weight loss and malaise/fatigue. HENT: Negative for ear pain and sore throat. Eyes: Negative for pain. Respiratory: Negative for cough, hemoptysis, shortness of breath and wheezing. Cardiovascular: Negative for chest pain, claudication and leg swelling. Gastrointestinal: Negative for nausea, vomiting, abdominal pain, blood in stool and melena. Genitourinary: Negative for flank pain. Skin: Negative for rash. Neurological: Negative for dizziness, tremors, speech change, focal weakness, seizures and loss of consciousness. Psychiatric/Behavioral: Negative for suicidal ideas, hallucinations and substance abuse. - See HPI Objective: BP 123/63 mmHg Pulse 53 Temp(Src) 36.5 ??C (97.7 ??F) (Tympanic) Resp 12 Physical Exam Constitutional: She is oriented to person, place, and time. She appears well- developed and well-nourished. She does not appear ill. No distress. HENT: Head: Normocephalic and atraumatic. Nose: Nose normal. Eyes: Conjunctivae and EOM are normal. No scleral icterus. Neck: Normal range of motion. Neck supple. No tracheal deviation present. No thyroid mass present. Cardiovascular: Normal rate, regular rhythm and normal heart sounds. Exam reveals no gallop and no friction rub. No murmur heard. Pulmonary/Chest: Effort normal and breath sounds normal. No respiratory distress. She has no decreased breath sounds. She has no wheezes. She has no [...] There are no axillary masses. Abdominal: Soft. Normal appearance. She exhibits no distension. There is no tenderness. There is noguarding. Genitourinary: No breast swelling, discharge or bleeding. Lymphadenopathy: Right cervical: No superficial cervical, no deep cervical and no posterior cervical adenopathy present. Left cervical: No superficial cervical, no deep cervical and no posterior cervical adenopathy present. Right axillary: No pectoral and no lateral adenopathy present. Left axillary: No pectoral and no lateral adenopathy present. Right: No supraclavicular adenopathy present. Left: No supraclavicular adenopathy present. Neurological: She is alert and oriented to person, place, and time. Coordination normal. Skin: Skin is warm and dry. No rash noted. She is not diaphoretic. No erythema. No pallor. Psychiatric: She has a normal mood and affect. Her behavior is normal. Judgment and thought contentnormal. Mammogram 04/15/2015: BI-RADS 6. Breasts are noted to be more than 75% fibroglandular in nature. Assessment: Sandhya has a personal historyof extremely dense breast tissue, and breast nodularity. Her clinicalbreast exam today stable when compared to previous notes and there is no evidence for malignancy. At this point she if very comfortable with continue HR screening US in addition to her mammogram, which is reasonable considering her very difficult breast exam and nodularity. Plan: 1. Sandhya will be scheduled for her next mammogram in 12 months, as well as other imaging: HR screening ultrasound in 6 months. 2. She will return to clinic in 12 months for her next breast exam. 6 months with PCP. 3. She is also encouraged to perform [...] our patient in regards to their risk. Portions of this document may have been prepared with speech recognition software or keyboard senior database programmer techniques. Minor irregularities or keyboarding misprints may be present. Sandhya was seen today for follow-up. Diagnoses and associated orders for this visit: Diffuse cystic mastopathy, unspecified laterality Inconclusive mammogram due to dense breasts documented in this encounter Plan of Treatment Upcoming Encounters Date Type Department Care Team (Late st Contact Info) Description 03/21/2024 8:30 EDT Appointment [facility] Ultrasound 0 [place] [address] 04/17/2024 10:50 EDT Appointment [facility] Endoscopy - [address] [phone] Marcellus Walsh MD [address] [place] [address] 5 [place] [phone] 05/01/2024 13:30 EDT Appointment [facility] Breast Imaging - [address] [phone] 05/15/2024 15:00 EST Telemedicine [facility] Gastroenterology - [address] [phone] Madhu Park MD PhD [address] [place] [phone] 12/10/2024 11:30 EDT Office Visit [facility] Surgical Oncology - [address] [phone] [facility] PA-C [address] [place] [address], [facility] 2 [place] [phone] documented as of this encounter Visit Diagnoses Diagnosis Diffuse cystic mastopathy, unspecified laterality- Primary Inconclusive mammogram due to dense breasts Inconclusive mammogram documented in this encounter Care Teams Teacher Dramatics Relationship Specialty Start Date End Date Indy Champion MD [address] [place] [address] PCP - General 04/15/15 documented as of this encounter
--- OUTSIDE RECORDS SUMMARY | 2024-03-20 21:37 | XMS_ITS | Encounter Summary ---
Author Organization [facility] Address [address] [place] [address] Care Team Providers Care Office Assistant Name Role Phone None, Provider Primary Care Provider Unavailabl e Reason for Visit * Reason Onset Date Comments Follow-up 03/19/2011 6 MOS FUP MAMMOG RA Encounter Details Date Type Department Care Team (Late st Contact Info) Description 03/19/2011 Orders Only [facility] Surgical Oncology - [address] [phone] Josh Daniels MD MSc [address] [place] [phone] Inconclusive mammogram (Primary Dx) Social History Tobacco Use [...] 8:30 EDT Appointment [facility] [address] [place], [place] [address]38[address] 04/17/2024 10:50 EDT Appointment [facility] Endoscopy - [address] [phone] Marcellus Walsh MD 111 [facility], [facility], Level 5 [place] [phone] 05/01/2024 13:30 EDT Appointment [facility] Breast Imaging - [facility] [place] 1 [place], [place] [address] 05/15/2024 15:00 EST Telemedicine [facility] Gastroenterology - [address] [phone] Madhu Park MD PhD 111 [facility], [facility] 5 [place] [phone] 12/10/2024 11:30 EDT Office Visit [facility] Surgical Oncology - [address] [phone] Magnolia Blood PA-C 111 [facility], [facility] 2 [place] [phone] documented as of this encounter Procedures Procedure Name Priority Date/Time Associated Diagnosis Comments RAD US BREAST SCREENING ONLY 09/30/2011 10:15 EDT documented in this encounter Results * RAD US BREAST SCREEN-HIGH RISK SCREEN ONLY (09/30/2011 10:15 EDT) Anatomical Region Laterality Modality Other 09/30/2011 10:1 5 EDT 09/30/2011 11:10 EDT Narrative 09/30/2011 11:10 EDT U/S BREAST SCREEN - Sep 30, 2011 10:45:00 AM Signs and Symptoms/Comments: ??793.82-Inconclusive mammogram- I9 Dense breast tissue, multiple nodularity both breasts. Comparison: Mammogram from 03/17/2011 and ultrasound from July 16, 2010. Findings: ??Right breast: The entire breast was scanned with real-time technique and color Doppler. There are multiple scattered benign-appearing cysts and fibrocystic nodules which are stable in appearance. There is a solid mass again noted at 7 o'clock, 4.5 cm from the nipple, just beneath the dermis which appears to consist of 2 contiguous solid mass. It measures 12 mm in greatest dimension and is stable in appearance and size. Impression: ??Right breast: BI-RADS Category Assessment 2: Benign findings. Findings: ??Left breast: The entire breast was scanned with real-time technique and color Doppler. There are multiple scattered benign-appearing cysts and fibrocystic nodules and prominent ducts. There were no suspicious findings. This had a similar appearance to the previous study. Impression: ??Left breast: BI-RADS Category Assessment 2: Benign findings. Overall impression: BI-RADS Category Assessment 2: Benign findings. Screening mammography is recommended in March 2012. The patient was told the results and recommendations of the study by the mule rider. Procedure Note 09/30/2011 U/S BREAST SCREEN - Sep 30, 2011 10:45:00 AM Signs and Symptoms/Comments: 793.82-Inconclusive mammogram- I9 Dense breast tissue, multiple nodularity both breasts. Comparison: Mammogram from 03/17/2011 and ultrasound from July 16, 2010. Findings: Right breast: The entire breast was scanned with real-time technique and color Doppler. There are multiple scattered benign-appearing cysts and fibrocystic nodules which are stable in appearance. There is a solid mass again noted at 7 o'clock, 4.5 cm from the nipple, just beneath the dermis which appears to consist of 2 contiguous solid mass. It measures 12 mm in greatest dimension and is stable in appearance and size. Impression: Right breast: BI-RADS Category Assessment 2: Benign findings. Findings: Left breast: The entire breast was scanned with real-time technique and color Doppler. There are multiple scattered benign-appearing cysts and fibrocystic nodules and prominent ducts. There were no suspicious findings. This had a similar appearance to the previous study. Impression: Left breast: BI-RADS Category Assessment 2: Benign findings. Overall impression: BI-RADS Category Assessment 2: Benign findings. Screening mammography is recommended in March 2012. The patient was told the results and recommendations of the study by the mule rider. Josh Daniels MD, MSc IMG US ORDERABLES documented in this encounter Visit Diagnoses Diagnosis Inconclusive mammogram- Primary documented in this encounter Care Teams Office Assistant Relationship Specialty Start Date End Date None, Provider PCP - General 03/10/11 05/26/11 documented as of this encounter
--- OUTSIDE RECORDS SUMMARY | 2024-03-20 21:37 | XMS_ITS | Encounter Summary ---
Author Organization [facility] Address [address] [place] [address] Care Team Providers Care Swift Tender Name Role Phone Nurys Meza MD Primary Care Prov ider Unavailable Encounter Details Date Type Department Care Team (Late st Contact Info) Description 10/11/2013 7:54 EDT - 10/11/2013 23:59 EDT Hospital Encounter [facility] [address] [place] [address] Josh Daniels MD MSc [address] [place] [phone] Discharge Disposition: Home or Self Care Social [...] on file documented as of this encounter Discharge Diagnoses Diagnosis V72.5 RADIOLOGICAL EXAM NEC[ICD-9-CM] documented in this encounter Medications at Time of Discharge Medication Sig Dispensed Refills Start Date End Date acyclovir (ZOVIRAX) 5 % ointmentIndications:R ecurrent cold sores Apply to lip at onset of tingling. Can three times per day 1 Tube 1 04/21/2011 valacyclovir (VALTREX) 1 g tablet Take 0.5 Tabs by mouth 2 times daily. For three days at the earliest onset of symptoms 18 Tab 1 04/29/2010 VITAMIN E/FLAXSEED OIL (OMEGA-3 FLAXSEED OIL ORAL) Take 1 Tab by mouth daily. CALCIUM CITRATE/VITAMIN D3 (CALCIUM CITRATE + ORAL) Take by mouth daily. 04/13/2011 016 CHASTE TREE ORAL Take by mouth daily. 02/2016 ERGOCALCIFEROL (VITAMIN D ORAL) Take 2 Tabs [...] Code Departure Means Destination Home or Self Shelter documented in this encounter Plan of Treatment Upcoming Encounters Date Type Department Care Team (Late st Contact Info) Description 03/21/2024 8:30 EDT Appointment [facility] Ultrasound 0 [place] [address] 04/17/2024 10:50 EDT Appointment [facility] Endoscopy - [address] [phone] Marcellus Walsh MD [address] [place] [phone] 05/01/2024 13:30 EDT Appointment [facility] Breast Imaging - [address] 114661 05/15/2024 15:00 EST Telemedicine [facility] Gastroenterology - [address] [phone] Madhu Park MD PhD [address] [place] [phone] 12/10/2024 11:30 EDT Office Visit [facility] Surgical Oncology - [facility] [address] [place], [place] [phone] Magnolia Blood PA-C 111 [facility], [facility], Level 2 [place] [phone] documented as of this encounter Procedures Procedure Name Priority Date/Time Associated Diagnosis Comments MA MAMMO. SCREENING CINDY 04/23/2014 9:41 EDT documented in this encounter Results * MA MAMMO. SCREENING CINDY (04/23/2014 9:41 EDT) Anatomical Region Laterality Modality Other 04/23/2014 9:41 EDT 04/26/2014 8:37 EDT Narrative 04/26/2014 8:37 EDT Comparison has been made to previous images. Bilateral Breast Findings: (Routine digital views with CAD and 3D images with Tomosynthesis) The breasts are extremely dense (greater than 75% fibroglandular) which could obscure a lesion on mammography. ??Bilaterally very dense with multiple round masses similar to prior studies. ??There are no other significant abnormalities. IMPRESSION: BILATERAL BREASTS: Benign, no evidence of malignancy. Normal interval follow-up is recommended in 12 months. OVERALL ASSESSMENT - CATEGORY 2 - BENIGN END OF IMPRESSION These results will be communicated to your patient via a lay letter from Radiology. If any additional imaging is needed we will contact your patient directly. Procedure Note 04/26/2014 Comparison has been made to previous images. Bilateral Breast Findings: (Routine digital views with CAD and 3D images with Tomosynthesis) The breasts are extremely dense (greater than 75% fibroglandular) which could obscure a lesion on mammography. Bilaterally very dense with multiple round masses similar to prior studies. There are no other significant abnormalities. IMPRESSION: BILATERAL BREASTS: Benign, no evidence of malignancy. Normal interval follow-up is recommended in 12 months. OVERALL ASSESSMENT - CATEGORY 2 - BENIGN END OF IMPRESSION These results will be communicated to your patient via a lay letter from Radiology. If any additional imaging is needed we will contact your patient directly. Indy VARGAS MAMMOGRAPHY ORDERABLES documented in this encounter Visit Diagnoses Not on filedocumented in this encounter Care Teams Swift Tender Relationship Specialty Start Date End Date Nurys Meza MD PCP - General 05/27/11 04/14/15 documented as of this encounter
--- OUTSIDE RECORDS SUMMARY | 2024-03-20 21:37 | XMS_ITS | Encounter Summary ---
Author Organization [facility] Address [address] [place] [address] Care Team Providers Care Rubber Printing Machine Operator Name Role Phone Indy Champion MD Primary Care Provider Encounter Details Date Type Department Care Team (Latest Contact Info) Description 11/03/2016 8:04 EDT - 11/03/2016 9:59 EDT Hospital Encounter [facility] [address] [place] [address] Nurys Meza MD Discharge Disposition: Auto Discharge [...] Diagnoses Diagnosis N63 Unspecified lump in breast-N63[ICD-10-CM] N60.11 Diffuse cystic mastopathy of right breast-N60.11[ICD-10-CM] N60.12 Diffuse cystic mastopathy of left breast-N60.12[ICD-10-CM] documented in this encounter Medications at Time [...] 8:30 EDT Appointment [facility] [address] [place] [address] 04/17/2024 10:50 EDT Appointment [facility] Endoscopy - [address] 605161 Marcellus Walsh MD [address] [place] [phone] 05/01/2024 13:30 EDT Appointment [facility] Breast Imaging - [address] [phone] 05/15/2024 15:00 EST Telemedicine [facility] Gastroenterology - [address] [phone] Madhu Park MD PhD [address] [place] [phone] 12/10/2024 11:30 EDT Office Visit [facility] Surgical Oncology - [address] [phone] Magnolia Blood PA-C 111 [facility], Level 2 [place] [phone] documented as of this encounter Visit Diagnoses Not on filedocumented in this encounter Care Teams Rubber Printing Machine Operator Relationship Specialty Start Date End Date Indy Champion MD [address] [place] [address] PCP - General 04/15/15 documented as of this encounter
--- OUTSIDE RECORDS SUMMARY | 2024-03-20 21:37 | XMS_ITS | Encounter Summary ---
Author Organization [facility] Address [address] [place] [address] Care Team Providers Care Botany Professor Name Role Phone Indy Champion MD Primary Care Provider Encounter Details Date Type Department Care Team (Latest Contact Info) Description 04/16/2016 10:20 EDT - 04/16/2016 23:59 EDT Hospital Encounter [facility] [place] [address] [place] [address] Nurys Meza MD Discharge Disposition: Home or Self Care [...] Code Departure Means Destination Home or Self Long Term documented in this encounter Plan of Treatment Upcoming Encounters Date Type Department Care Team (Late st Contact Info) Description 03/21/2024 8:30 EDT Appointment [facility]tras[facility] [address] [place], [place] [address]446 04/17/2024 10:50 EDT Appointment [facility] Endoscopy - [address] [phone] Marcellus Walsh MD [address] [place] [address] [phone] 05/01/2024 13:30 EDT Appointment [facility] Breast Imaging - [address] [phone] 05/15/2024 15:00 EST Telemedicine [facility] Gastroenterology - [address] 440241 Madhu Park MD PhD [address] [place] [address] [phone] 12/10/2024 11:30 EDT Office Visit [facility] Surgical Oncology - [address] [phone] Magnolia Blood, PA-C [address] [place] [address], [facility] 2 [place] [phone] documented as of this encounter Visit Diagnoses Not on filedocumented in this encounter Care Teams Botany Professor Relationship Specialty Start Date End Date Indy Champion MD [address] [place] [address] PCP - General 04/15/15 documented as of this encounter
--- OUTSIDE RECORDS SUMMARY | 2024-03-20 21:37 | XMS_ITS | Encounter Summary ---
Author Organization [facility] Address [address] [place] [address] Care Team Providers Care Office 365 Consultant Name Role Phone None, Provider Primary Care Provider Unavailabl e Encounter Details Date Type Department Care Team (Late st Contact Info) Description 04/13/2011 Results Only Imaging [facility] Surgical Oncology - [address] [phone] Mary Jo Dyson, PNEUMATIC DRUM SANDER [address] [place] [phone] Social History Tobacco Use Types Packs/Day Years [...] 8:30 EDT Appointment [facility] Ultrasound [address] [place] [address] 04/17/2024 10:50 EDT Appointment [facility] Endoscopy - [facility] [address] [place], [place] 212[address] Marcellus Walsh MD 111 [facility], Level 5 [place] [phone] 05/01/2024 13:30 EDT Appointment [facility] Breast Imaging - [facility] [address] [place] [address] [place], [place] [address] 05/15/2024 15:00 EST Telemedicine [facility] Gastroenterology - [address] [phone] Madhu Park MD PhD 111 [facility], Level [address] [place] [phone] 12/10/2024 11:30 EDT Office Visit [facility] Surgical Oncology - [address] [address] Magnolia Blood PA-C 111 [facility], Level 2 [place] [phone] documented as of this encounter Procedures Procedure Name Priority Date/Time Associated Diagnosis Comments MA MAMMO SCREENING DIGITAL 04/11/2012 9:03 EDT documented in this encounter Results * MA MAMMO SCREENING DIGITAL (04/11/2012 9:03 EDT) Anatomical Region Laterality Modality Other 04/11/2012 9:03 EDT 04/11/2012 11:24 EDT Narrative 04/11/2012 11:24 EDT Comparison has been made to previous images. Bilateral Breast Findings: (Routine digital views with CAD) The breasts are extremely dense (greater than 75% fibroglandular) which could obscure a lesion on mammography. No significant masses, calcifications or other abnormalities are seen. IMPRESSION: BILATERAL BREASTS: Negative, no evidence of malignancy. Normal interval follow-up is recommended in 12 months. OVERALL ASSESSMENT - CATEGORY 1 - NEGATIVE END OF IMPRESSION The patient will be notified of her/his breast imaging results via a lay letter from Radiology. Radiology will contact the patient directly regarding any findings which require additional imaging (Category 0) at this time. Procedure Note 04/11/2012 Comparison has been made to previous images. Bilateral Breast Findings: (Routine digital views with CAD) The breasts are extremely dense (greater than 75% fibroglandular) which could obscure a lesion on mammography. No significant masses, calcifications or other abnormalities are seen. IMPRESSION: BILATERAL BREASTS: Negative, no evidence of malignancy. Normal interval follow-up is recommended in 12 months. OVERALL ASSESSMENT - CATEGORY 1 - NEGATIVE END OF IMPRESSION The patient will be notified of her/his breast imaging results via a lay letter from Radiology. Radiology will contact the patient directly regarding any findings which require additional imaging (Category 0) at this time. Anuel ARMSTRONG IMG MAMMOGRAPHY ANITA RIVERA documented in this encounter Visit Diagnoses Not on filedocumented in this encounter Care Teams Office 365 Consultant Relationship Specialty Start Date End Date None, Provider PCP - General 03/10/11 05/26/11 documented as of this encounter
--- OUTSIDE RECORDS SUMMARY | 2024-03-20 21:37 | XMS_ITS | Encounter Summary ---
Author Organization [facility] Address [address] [place] [address] Care Team Providers Care Stave Saw Operator Name Role Phone Nurys Meza MD Primary Care Prov ider Unavailable Reason for Referral * Radiology Services (Routine/Next Available) - Closed Specialty Diagnoses / Procedures Referred By Dedra sampson Referred To Contact Diagnoses Dense breasts Procedures RAD US BREAST BILATERAL - TWO BREASTS Josh Daniels MD MSc [address] [place] [address] Referral ID Status Reason Start Date Expiration Date Visits Re quested Visits Authorized [id number] Closed 05/02/2013 1 1 Reason for Visit * Reason Onset Date Comments Ultrasound 05/02/2013 [facility] Encounter Details Date Type Department Care Team (Late st Contact Info) Description 05/02/2013 Orders Only [facility] Surgical Oncology - Main [place] [address] [place] [address] Josh Daniels MD MSc [address] [place] [phone] Dense breasts (Primary Dx) Social History Tobacco Use [...] 8:30 EDT Appointment [facility] Ultrasound [address] [place], [place] [address] 04/17/2024 10:50 EDT Appointment [facility] Endoscopy - [address] [phone] Marcellus Walsh MD [address] [place] [phone] 05/01/2024 13:30 EDT Appointment [facility] Breast Imaging - [address] [phone] 05/15/2024 15:00 EST Telemedicine [facility] Gastroenterology - [address] [phone] Madhu Park MD PhD [address] [place] [phone] 12/10/2024 11:30 EDT Office Visit [facility] Surgical Oncology - [address] [phone] Magnolia Blood, PA-C [address] [place] [address], [facility] 2 [place] [phone] documented as of this encounter Procedures Procedure Name Priority Date/Time Associated Diagnosis Comments RAD US BREAST BILATERAL - TWO BREASTS Routine 10/11/2013 9:21 EDT Dense breasts documented in this encounter Results * RAD US BREAST BILATERAL - TWO BREASTS (10/11/2013 9:21 EDT) Anatomical Region Laterality Modality Other 10/11/2013 9:21 EDT 10/11/2013 11:10 EDT Narrative 10/11/2013 11:10 EDT RAD ULTRASOUND BREAST BILATERAL - TWO BREASTS (55 MIN DURATION) ?? 10/11/2013 9:21 AM Signs and Symptoms/Comments: ?? 793.82-Inconclusive aoosrcrsw-TML-3-CM; dense breast tissue/benign appearing right axillary node that is palpable, 6 month follow up per Dr. Daniels. Comparison: Prior ultrasound dated 12/04/2012 and most recent mammogram 04/19/2013. Bilateral Breast Findings: Both breasts and axillary regions were scanned. There is bilateral ductal ectasia. Several dilated ducts are filled with debris without color flow to suggest underlying papilloma or intraductal lesion. This is stable. Scattered benign cysts and fibrocystic nodules are stable. No suspicious lesion is identified. Impression: Bilateral breast: BI-RADS Category Assessment 2: Benign Findings. Results and recommendations were discussed with the patient by the aquatic habitat biologist at the time of the exam. The patient will be notified of her breast imaging results via a lay letter from radiology. Radiology will contact the patient directly regarding any findings which require additional imaging (Category 0) at this time. Recommend continued yearly screening mammography, due in April 2014. Overall assessment benign. Procedure Note 10/11/2013 RAD ULTRASOUND BREAST BILATERAL - TWO BREASTS (55 MIN DURATION) 10/11/2013 9:21 AM Signs and Symptoms/Comments: 793.82-Inconclusive bepzqsprs-IOX-8-CM; dense breast tissue/benign appearing right axillary node that is palpable, 6 month follow up per Dr. Daniels. Comparison: Prior ultrasound dated 12/04/2012 and most recent mammogram 04/19/2013. Bilateral Breast Findings: Both breasts and axillary regions were scanned. There is bilateral ductal ectasia. Several dilated ducts are filled with debris without color flow to suggest underlying papilloma or intraductal lesion. This is stable. Scattered benign cysts and fibrocystic nodules are stable. No suspicious lesion is identified. Impression: Bilateral breast: BI-RADS Category Assessment 2: Benign Findings. Results and recommendations were discussed with the patient by the aquatic habitat biologist at the time of the exam. The patient will be notified of her breast imaging results via a lay letter from radiology. Radiology will contact the patient directly regarding any findings which require additional imaging (Category 0) at this time. Recommend continued yearly screening mammography, due in April 2014. Overall assessment benign. Josh Daniels MD MSc IMG US ORDERABLES documented in this encounter Visit Diagnoses Diagnosis Dense breasts- Primary Inconclusive mammogram documented in this encounter Care Teams Stave Saw Operator Relationship Specialty Start Date End Date Nurys Meza MD PCP - General 05/27/11 04/14/15 documented as of this encounter
--- OUTSIDE RECORDS SUMMARY | 2024-03-20 21:37 | XMS_ITS | Encounter Summary ---
Author Organization [facility] Address [address] [place] [address] Care Team Providers Care Line Maintenance Technician Name Role Phone Indy Champion MD Primary Care Provider Encounter Details Date Type Department Care Team (Latest Contact Info) Description 04/15/2015 7:41 EDT - 04/15/2015 23:59 EDT Hospital Encounter [facility] [address] [place] [address] Nurys Meza MD Discharge Disposition: Auto Discharge [...] 8:30 EDT Appointment [facility] Ultrasound 0 [place] [address] 04/17/2024 10:50 EDT Appointment [facility] Endoscopy - [address] [phone] Marcellus Walsh MD [address] [phone] 05/01/2024 13:30 EDT Appointment [facility] Breast Imaging - [address] 533641 05/15/2024 15:00 EST Telemedicine [facility] Gastroenterology - [address] [phone] Madhu Park MD PhD [address] [phone] 12/10/2024 11:30 EDT Office Visit [facility] Surgical Oncology - [facility] [address] [place] [address] Magnolia Blood PA-C 111 [facility], [facility], Level [address] [place] [phone] documented as of this encounter Procedures Procedure Name Priority Date/Time Associated Diagnosis Comments MA 2D/3D BILATERAL CINDY ROUTINE SCREENING MAMMO 04/16/2016 10:46 EDT documented in this encounter Results * MA 2D/3D BILATERAL CINDY ROUTINE SCREENING MAMMO (04/16/2016 10:46 EDT) Anatomical Region Laterality Modality Other 04/16/2016 10:4 6 EDT 04/16/2016 14:17 EDT Narrative 04/16/2016 14:17 EDT Comparison has been made to previous [...] will contact your patient directly. Procedure Note Ha Elise MD - 04/16/2016 Comparison has been made to previous images. [...] on filedocumented in this encounter Care Teams Line Maintenance Technician Relationship Specialty Start Date End Date Indy Champion MD [address] [place] [address] PCP - General 04/15/15 documented as of this encounter
--- OUTSIDE RECORDS SUMMARY | 2024-03-20 21:37 | XMS_ITS | Encounter Summary ---
Author Organization [facility] Address [address] [place] [address] Care Team Providers Care Jewelry Drilling Machine Operator Name Role Phone Nurys Meza MD Primary Care Prov ider Unavailable Reason for Visit * Reason Onset Date Comments Ultrasound 04/23/2014 high risk, diffu se cystic mastopathy Encounter Details Date Type Department Care Team (Late st Contact Info) Description 04/23/2014 Orders Only [facility] Surgical Oncology - [facility] [address], [place] [address] Indy Stein PA-C [address] [place] [address], [address] [place] [phone] Diffuse cystic mastopathy (Primary Dx); Inconclusive mammogram; Inconclusive mammogram due to dense breasts Social [...] 8:30 EDT Appointment Karin Danielle Ultrasound [address] [place] [address] 04/17/2024 10:50 EDT Appointment [facility] Endoscopy - [facility] [address] [place], [place] 38[address] Marcellus Walsh MD [address] [place] [address] 5 [place] [phone] 05/01/2024 13:30 EDT Appointment [facility] Breast Imaging - [address] [phone] 05/15/2024 15:00 EST Telemedicine [facility] Gastroenterology - [address] 182701 Madhu Park MD PhD [address] [place] [address] 5 [place] [phone] 12/10/2024 11:30 EDT Office Visit [facility] Surgical Oncology - [address] 431781 Magnolia Blood PA-C [address] [place] [address], [facility] [address] [place] [phone] documented as of this encounter Visit Diagnoses Diagnosis Diffuse cystic mastopathy- Primary Inconclusive mammogram Inconclusive mammogram due to dense breasts Inconclusive mammogram documented in this encounter Care Teams Jewelry Drilling Machine Operator Relationship Specialty Start Date End Date Nurys Meza MD PCP - General 05/27/11 04/14/15 documented as of this encounter
--- OUTSIDE RECORDS SUMMARY | 2024-03-20 21:37 | XMS_ITS | Encounter Summary ---
Author Organization [facility] Address [address] [place] [address] Care Team Providers Care Sinter Press Operator Name Role Phone Nurys Meza MD Primary Care Prov ider Unavailable Encounter Details Date Type Department Care Team (Latest Contact Info) Description 04/11/2012 8:32 EDT - 04/11/2012 23:59 EDT Hospital Encounter [address] [address] Nurys Meza MD Discharge Disposition: Home or [...] ORAL) Take by mouth daily. 04/13/2011 016 ERGOCALCIFEROL (VITAMIN D ORAL) Take 2 Tabs [...] Description 03/21/2024 8:30 EDT Appointment Karin Danielle [place] 825980 [place] [address] 04/17/2024 10:50 EDT Appointment [facility] Endoscopy - [address] [phone] Marcellus Walsh MD [address] [place] [phone] 05/01/2024 13:30 EDT Appointment [facility] Breast Imaging - [address] [phone] 05/15/2024 15:00 EST Telemedicine [facility] Gastroenterology - [address] 747711 Madhu Park MD PhD [address] [place] [phone] 12/10/2024 11:30 EDT Office Visit [facility] Surgical Oncology - [address] 789201 [facility] Blood PAPrabhaC [address] [place] [address] 2 [place] [phone] documented as of this encounter Visit Diagnoses Not on filedocumented in this encounter Care Teams Sinter Press Operator Relationship Specialty Start Date End Date Nurys Meza MD PCP - General 05/27/11 04/14/15 documented as of this encounter
--- OUTSIDE RECORDS SUMMARY | 2024-03-20 21:37 | XMS_ITS | Encounter Summary ---
Author Organization [facility] Address [address] [place] [address] Care Team Providers Care Measurer Machine Name Role Phone Nurys Meza MD Primary Care Prov ider Unavailable Encounter Details Date Type Department Care Team (Late st Contact Info) Description 09/30/2011 8:51 EDT - 09/30/2011 23:59 EDT Hospital Encounter [facility] [place] [address] [place] [address] Josh Daniels MD MSc [address] [place] [phone] Discharge Disposition: Auto Discharge Social History Tobacco [...] 8:30 EDT Appointment Karin Danielle Ultrasound [address] [place] [address] 04/17/2024 10:50 EDT Appointment [facility] Endoscopy - [address] [address] Marcellus Walsh MD [address] [place] [phone] 05/01/2024 13:30 EDT Appointment [facility] Breast Imaging - [address] [address] 05/15/2024 15:00 EST Telemedicine [facility] Gastroenterology - [address] [phone] Madhu Park MD PhD [address] [place] [phone] 12/10/2024 11:30 EDT Office Visit [facility] Surgical Oncology - [address] [address] Magnolia Blood PA-C [address] [place] [address], [facility] [address] [place] [phone] documented as of this encounter Visit Diagnoses Not on filedocumented in this encounter Care Teams Measurer Machine Relationship Specialty Start Date End Date Nurys Meza MD PCP - General 05/27/11 04/14/15 documented as of this encounter
--- OUTSIDE RECORDS SUMMARY | 2024-03-20 21:37 | XMS_ITS | Encounter Summary ---
Author Organization [facility] Address [address] [place] [address] Care Team Providers Care Smasher Name Role Phone Nurys Meza MD Primary Care Prov ider Unavailable Reason for Visit * Reason Comments Follow-up Encounter Details Date Type Department Care Team (Late st Contact Info) Description 04/11/2012 10:00 EDT Office Visit [facility] [place] [address] Anuel Hendricks ANP Diffuse cystic mastopathy (Primary Dx) Social History Tobacco Use Types [...] - Inhaled Oxygen Concentration - - Weight 58.5 kg (129 lb) 04/11/2012 0952 EDT Height 166.5 cm (5' 5.55) 04/11/2012 0952 EDT Body Mass Index 21.11 04/11/2012 0952 EDT documented in this encounter Progress Notes * Michael Fajardo MD - 04/11/2012 1225 EDT I was available for consultation on this patient. * Anuel Hendricks NP - 04/11/2012 1000 EDT DIVISION OF SURGICAL ONCOLOGY - [facility] FOLLOW-UP/PROGRESS NOTE - 04/11/2012 PROBLEM: Breast density and fibrocystic breast changes. SUBJECTIVE: Sandhya Lomas is a 51 y.o. old female who is here today for annual screening breast exam. Sandhya established care in the [facility] due to breast nodularity, dense breast tissue and a difficult clinical breast exam. She has followed with Dr Murcia and Dr Daniels in the past. She denies any family history of breast cancer. Her screening has included yearly mammograms alternating with screening ultrasounds. She inquires about MRI screening. Sandhya has never had a breast biopsy. She does not perform regular self breast exams consistently because her exam is so difficult. She has not noticed any new areas of concern, and denies any changes in breast skin or nipple discharge. Sandhya's weight has been stable and she exercises for about an hour every day by walking, running,hiking and doing yoga. REVIEW OF SYSTEMS: No new systemic complaints. A comprehensive review of systems was negative. Patient Active Problem List Diagnoses ??? BCC (basal cell carcinoma) ??? Dense breasts ??? Diffuse cystic mastopathy Past Medical History Diagnosis Date ??? Diffuse cystic mastopathy 12/01/2009 ??? Basal cell carcinoma ??? BCC (basal cell carcinoma), leg 12/11/2010 right vázquez ??? Anemia resolved Iron deficiency anemia winter 2008 ??? Complication of anesthesia difficulty waking from general anesthesia ??? S/P colonoscopy 03/2011 Norm. 10 yr f/u Past Surgical History Procedure Date ??? Mohs surgery 11/2009 basal cell carcinoma, right confucianist ??? section 1995, 1997 ??? Abdomen surgery 1988 dermoid cyst Current Outpatient Prescriptions Medication Sig Dispense Refill ??? acyclovir (ZOVIRAX) 5 % ointment Apply to lip at onset of tingling. Can three times per day 1 Tube 1 ??? CALCIUM CITRATE/VITAMIN D3 (CALCIUM CITRATE + ORAL) Take by mouth daily. ??? polyethylene glycol (GOLYTELY) 236-22.74-6.74 gram suspension Take 4,000 mL by mouth. Follow instructions on 'colonoscopy preparation instructions' sheet. 1 Bottle 0 ??? valacyclovir (VALTREX) 1 g tablet Take 0.5 Tabs by mouth 2 times daily. For three days at the earliest onset of symptoms 18 Tab 1 ??? IBUPROFEN (ADVIL ORAL) Take by mouth as needed. Rarely. ??? Multivitamins with Minerals Tab Take 1 Tab by mouth daily. ??? ERGOCALCIFEROL (VITAMIN D ORAL) Take 2 Tabs by mouth daily. ??? VITAMIN E/FLAXSEED OIL (OMEGA-3 FLAXSEED OIL ORAL) Take 1 Tab by mouth daily. ??? FERROUS FUMARATE (IRON ORAL) Take 2 Tabs by mouth daily. 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 Menarche at age 14. First delivery at age 36. She thinks she is perimenopausal with LMP 03/30/12. Family History Problem Relation Age of Onset ??? Cancer Mother 68 lung ??? Diabetes Father ??? Cancer Maternal Aunt 58 lungs/p smoking ??? Cancer Maternal Uncle 60 lungs/p smoking ??? Rheumatologic Disease Paternal Grandmother lupus Social History: Sandhya is and lives in [place]. She has two sons, ages 14 and 16. OBJECTIVE: Ht 166.5 cm (65.55) Wt 58.514 kg (129 lb) BMI 21.11 kg/m2 Constitutional: The patient is a 51 y.o. female in no acute distress. Sclerae: Anicteric. Skin: Warm and dry. Color: Good ENT: Neck is supple. Lymphatics: No cervical, clavicular or axillary adenopathy. Breasts: Examined in sitting and supine positions. Her breasts are essentially symmetrical. There is no skin puckering, dimpling or nipple change bilaterally. Both breasts were diffusely nodular throughout. There were no discrete, dominant, or fixed palpable masses in either breast. GI: Abdomen is soft and nontender with no organomegaly. IMAGING: A mammogram was done today and result was normal but with extremely dense breast tissue--routine follow-up in 12 months A breast ultrasound done 09/2011 showing multiple scattered benign-appearing cysts and fibrocystic nodules which are stable in appearance. ASSESSMENT: A 51 y.o. female with a history of extremely dense breast tissue, and breast nodularity. Her density limits her exam and her imaging so we have added annual ultrasounds to assist with interpretation. Clinically stable breast exam, and no evidence of abnormality on breast imaging. PLAN: 1. Her screening ultrasound is scheduled for September 2012. She does not qualify for screening MRI andthis was discussed at length. Sandhya will be scheduled for her mammogram in one year. 2. She sees Dr Ingrid Potter for CBE in 6 months to alternate with her visit here in one year. 3. She is also encouraged to perform self-breast exams and return to clinic sooner if has any changes or concerns. ANUEL HENDRICKS NP 04/11/2012 10:01 An attending was available for consultation at the time of the patient's visit. documented in this encounter Plan of Treatment Upcoming Encounters Date Type Department Care Team (Late st Contact Info) Description 03/21/2024 8:30 EDT Appointment Karin Danielle Ultrasound [address] [place], [place] [phone] 04/17/2024 10:50 EDT Appointment [facility] Endoscopy - [address] [phone] Marcellus Walsh MD [address] [place] [phone] 05/01/2024 13:30 EDT Appointment [facility] Breast Imaging - [address] [phone] 05/15/2024 15:00 EST Telemedicine [facility] Gastroenterology - [address] [address]2011 Madhu Park MD PhD [address] [place] [phone] 12/10/2024 11:30 EDT Office Visit [facility] Surgical Oncology - [address] [phone] Magnolia Blood PA-C [address] [facility], Level [address] [place] [phone] documented as of this encounter Visit Diagnoses Diagnosis Diffuse cystic mastopathy- Primary documented in this encounter Care Teams Smasher Relationship Specialty Start Date End Date Nurys Meza MD PCP - General 05/27/11 04/14/15 documented as of this encounter
--- OUTSIDE RECORDS SUMMARY | 2024-03-20 21:37 | XMS_ITS | Encounter Summary ---
Author Organization [facility] Address [address] [place] [address] Care Team Providers Care Ultrasound Tech Name Role Phone Nurys Meza MD Primary Care Prov ider Unavailable Encounter Details Date Type Department Care Team (Late st Contact Info) Description 04/19/2013 8:42 EDT - 04/19/2013 23:59 EDT Hospital Encounter [address] [address] Josh Daniels MD MSc [address] [place] [address] Discharge Disposition: Home or Self Care Social [...] Code Departure Means Destination Home or Self Mcfp documented in this encounter Plan of Treatment Upcoming Encounters Date Type Department Care Team (Late st Contact Info) Description 03/21/2024 8:30 EDT Appointment Karin Danielle Ultrasound 0 [place] [address] 04/17/2024 10:50 EDT Appointment [facility] Endoscopy - [address] 108741 Marcellus Walsh MD [address] [phone] 05/01/2024 13:30 EDT Appointment [facility] Breast Imaging - [address] [phone] 05/15/2024 15:00 EST Telemedicine [facility] Gastroenterology - [address] [phone] Madhu Park MD PhD [address] [phone] 12/10/2024 11:30 EDT Office Visit [facility] Surgical Oncology - [facility] [address] [place] [address] Magnolia Blood, PARDEEP [address] [facility], Level [address] [place] [phone] documented as of this encounter Visit Diagnoses Not on filedocumented in this encounter Care Teams Ultrasound Tech Relationship Specialty Start Date End Date Nurys Meza MD PCP - General 05/27/11 04/14/15 documented as of this encounter
--- OUTSIDE RECORDS SUMMARY | 2024-03-20 21:37 | XMS_ITS | Encounter Summary ---
Author Organization [facility] Address [address] [place] [address] Care Team Providers Care Machine Setter Automatic Name Role Phone Nurys Meza MD Primary Care Prov ider Unavailable Reason for Visit * Reason Comments Follow-up Encounter Details Date Type Department Care Team (Late st Contact Info) Description 04/19/2013 10:30 EDT Office Visit [facility] Surgical Oncology - [facility] [address] [place] [address] Josh Daniels MD MSc [address] [place] [address] Diffuse cystic mastopathy (Primary Dx) Social History [...] on file documented as of this encounter Progress Notes * Josh Daniels MD - 04/19/2013 1248 EDT DIVISION OF SURGICAL ONCOLOGY - [facility] FOLLOW-UP/PROGRESS NOTE - 04/19/2013 REASON FOR VISIT: Breast density and fibrocystic breast changes. HISTORY: Sandhya Lomas is a 52 y.o. old female who is here today for annual screening breast exam. [facility] due to breast nodularity, dense breast tissue and a difficult clinical breast exam. She denies any family history of breast cancer. Her screening has included yearly mammograms alternating with screening ultrasounds. She inquires about MRI screening. Sandhya has never had a breast biopsy. She performs infrequent self breast exams. She has not noticed any new areas of concern, and denies any changes in breast skin or nipple discharge. Patient Active Problem List Diagnoses ??? Basal cell carcinoma of skin ??? [...] Mohs surgery 11/2009 basal cell carcinoma, right rastafari ??? section 1995, 1997 ??? Abdomen surgery 1988 dermoid cyst Current Outpatient Prescriptions Medication Sig Dispense Refill ??? CHASTE TREE ORAL Take by mouth daily. ??? acyclovir (ZOVIRAX) 5 % ointment Apply [...] Tabs by mouth daily. 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 Menarche at age 14. First delivery at age 36. Family History Problem Relation Age of Onset ??? Cancer Mother 68 lung ??? Diabetes Father ??? Cancer Maternal Aunt 58 lungs/p smoking ??? Cancer Maternal Uncle 60 lungs/p smoking ??? Rheumatologic Disease Paternal Grandmother lupus Social History: Sandhya is and lives in [place]. She has two sons, ages 14 and 16. REVIEW OF SYSTEMS: No new systemic complaints. A comprehensive review of systems was negative. OBJECTIVE: Constitutional: 52 y.o. female comfortable, NAD. HEENT: sclerae anicteric. Neck supple Skin: No diffuse rash or jaundice. Lymphatics: No gross cervical, clavicular or axillary adenopathy. Small mobile right axillary nodespalpable. Abdomen: soft and nontender with no organomegaly. Breasts: Examined in sitting and supine positions. Her breasts are essentially symmetrical. There is no skin puckering, dimpling or nipple change bilaterally. Both breasts were diffusely nodular throughout. There were no discrete, dominant, or fixed palpable masses in either breast. IMAGING: Apr 2013. Comparison has been made to previous images. Bilateral Breast Findings: (Routinedigital views with CAD) The breasts are extremely dense (greater than 75% fibroglandular) which could obscure a lesion on mammography. No significant masses, calcifications or other abnormalities areseen. IMPRESSION: BILATERAL BREASTS: Negative, no evidence of malignancy. Normal interval follow-upis recommended in 12 months. OVERALL ASSESSMENT - CATEGORY 1 - NEGATIVE US BREAST SCREEN Oct 04, 2012 09:28:00 AM Signs and Symptoms/Comments: 610.1- DIFFUSE CYSTIC [id number]; DENSE BREAST,MULTIPLE NODULARITY BOTH BREASTS Comparison: Ultrasound 09/30/2011 and 11/17/2009. Findings: Both breasts: Ultrasound of both entire breasts and axillary regions was performed. Similar to the prior studies, there are multiple bilateral scattered cysts, probable fibrocysticnodules and prominent ducts. No suspicious masses or lesions are noted. Multiple normal appearing lymph nodes are noted within both axillary regions. Impression: Both breasts: BI-RADS Category Assessment 2: Benign findings of cysts, fibrocystic nodules and prominent ducts. Annual bilateral screening mammogram is recommended for April 2013. Overall BI-RADS Category Assessment 2: Benign Findings. ASSESSMENT/PLAN: 52 y.o. female with a history of extremely dense breast tissue, and breast nodularity. Clinically stable breast exam, and no evidence of abnormality on breast imaging. Requested right axillary ultrasound with next breast ultrasound. Continue follow-up. Josh Daniels MD 04/19/2013 12:49 documented in this encounter Plan of Treatment Upcoming Encounters Date Type Department Care Team (Late st Contact Info) Description 03/21/2024 8:30 EDT Appointment Karin Shashi Ultrasound [address] [place], [place] [phone] 04/17/2024 10:50 EDT Appointment [facility] Endoscopy - [address] [phone] Marcellus Walsh MD [address] [place] [phone] 05/01/2024 13:30 EDT Appointment [facility] Breast Imaging - [address] [phone] 05/15/2024 15:00 EST Telemedicine [facility] Gastroenterology - [address] [phone] Madhu Park MD PhD [address] [place] [phone] 12/10/2024 11:30 EDT Office Visit [facility] Surgical Oncology - [address] [phone] Magnolia Blood PA-C [address] [place] [address], [facility] 2 [place] [phone] documented as of this encounter Visit Diagnoses Diagnosis Diffuse cystic mastopathy- Primary documented in this encounter Historical Medications * This list may reflect changes made after this encounter. Medication Sig Dispensed Refills Start Date End Date CHASTE TREE ORAL Take by mouth daily. 02/2016 added in this encounter Care Teams Machine Setter Automatic Relationship Specialty Start Date End Date Nurys Meza MD PCP - General 05/27/11 04/14/15 documented as of this encounter
--- OUTSIDE RECORDS SUMMARY | 2024-03-20 21:37 | XMS_ITS | Encounter Summary ---
Author Organization [facility] Address [address] [place] [address] Care Team Providers Care Recording Studio Set Up Worker Name Role Phone None, Provider Primary Care Provider Unavailabl e Reason for Visit * Reason Comments Establish Care Encounter Details Date Type Department Care Team (Late st Contact Info) Description 04/21/2011 14:00 EDT Office Visit [address] [address] Nurys Meza MD Immunization due; Screening; Recurrent cold sores; FH: diabetes mellitus; Migraines Social History Tobacco Use Types Packs/Day Years [...] Sign Reading Time Taken Comments Blood Pressure 100/58 04/21/2011 1350 EDT Pulse 50 04/21/2011 1350 EDT Temperature 37.2 ??C (98.9 ??F) 04/21/2011 1350 EDT Respiratory Rate - - Oxygen Saturation - - Inhaled Oxygen Concentration - - Weight 58.7 kg (129 lb 6.4 oz) 04/21/2011 1350 E DT Height 165.1 cm (5' 5) 04/21/2011 1350 EDT Body Mass Index 21.53 04/21/2011 1350 EDT documented in this encounter Patient Instructions * Patient Instructions* Nurys Meza MD - 04/21/2011 14:[address] CHERRY [address] [facility] Dermatology on [facility] documented in this encounter Ordered Prescriptions Prescription Sig Dispensed Refills Start Date End Da te acyclovir (ZOVIRAX) 5 % ointmentIndications:Recurre nt cold sores Apply to lip at onset of tingling. Can three times per day 1 Tube 1 04/21/2011 documented in this encounter Progress Notes * Nurys Meza MD - 04/21/2011 1426 EDT Family Medicine Office Progress Note Anne is a new patient to [facility]. She is seen today to establish care. This is my first visit with her. CHIEF COMPLAINT: Establish care.Lip cold sores. Migraines. Skin cancer history. SOCIAL HISTORY/HEALTH HABITS: 50-year-old female. 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 She has two children ages 15 and 13. Nonsmoker. She consumes 1 glass of winetypically each night and does not take any drugs. 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 Last mammogram 03/2011. Last Pap 2009. Her past medical history, family history, health habits, medications and allergies and immunizationrecord were reviewed and updated per [facility] encounter. Her last tetanus booster was over 10 years ago. Last labs in 2003: Normal CMP. Normal CBC. FLP: Total cholesterol 139, triglycerides 93, HDL 60, LDL 60 and ratio 2.3. REVIEW OF SYSTEMS: 1. She has a history of infrequent lip cold sores. She states she has never taken oral Valtrex. Shehas used topical acyclovir ointment in the past with benefit. She typically applies this at first symptoms of tingling. She does not feel she needs any additional treatment. She requests to have a new prescription for this. 2. She has a history of infrequent migraines. She has had three in her lifetime. Typically with these she gets an aura with scotoma. She finds yoga and meditation very helpful. She is able to relieveit with ibuprofen. She does not feel she needs any additional treatment. She never awakens with a migraine. 3. She has a history of basal cell Nikky and Mohs procedure in November 2009. She is followed by dermatology at [facility]. She is considering possibly seeing a different port captain. She has questions regarding this. 4. EXPORT PACKER: She sees Dr Potter. She is also seen at the breast care center for annual screening breast exams Status post history of nodularity and dense breasts. She has no family history of breast cancer. 5. GI: She has no GERD. She has her usual bowel habits without melena or hematochezia. She is status post baseline normal colonoscopy screening March 2011 and was recommended 10-year followup. 6. She describes her general health as excellent. She is active, including walking, running, hiking, doing yoga, etc. She pays attention to her nutrition. She takes calcium supplementation. Her weight is stable. She has a family history of diabetes. Her last labs were checked in 2003. 7. She has no other concerns at today's visit. REVIEW OF SYSTEMS: General: She feels well. She has had no recent illness. She has her usual good energy level. Her weight is stable. Respiratory: No cough, not wheezing, not short of breath. Cardiac: No chest pain, no shortness of breath, no edema, no palpitations, no presyncope, no orthopnea, no PND. Endocrine: No polyuria, no polydipsia and no polyphagia.No thyroid symptoms. GI: No Nausea, usual bowel habits. See HPI. Neuro: Positive for infrequent migraines. See HPI. Objective: BP 100/58 Pulse 50 Temp(Src) 37.2 ??C (98.9 ??F) (Oral) Ht 165.1 cm (65) Wt 58.695 kg (129lb 6.4 oz) BMI 21.53 kg/m2 Gen: NAD distress. Pleasant and conversant. Comfortable. Well hydrated. NECK: Supple. No nodes. Normal thyroid. RESPIRATORY: Clear. No rales and no rhonchi. CARDIAC: Regular S1 and S2. No m/r/g. No TESSIE. Abd: +BS, soft, non-tender, non-distended. No gross organomegaly. No CVA and no suprapubic tenderness. Skin: Warm and dry. Neuro: Alert and oriented. Psych: Mood is upbeat and affect appropriate. Casually dressed. Assessment/Plan: New patient visit. Establish care/Review medical history. 1. History of lip HSV 1 cold sores 1. Anticipated guidance and expected course. Usual symptoms and triggers reviewed. 2. ED rx options with topical acyclovir or denavir trial. She desires: Acyclovir 5% ointment was e-scripted. Medication side effects reviewed. 2. Migraines -- infrequent. 1. Anticipated guidance and expected course. Ed: Self-care strategies along with abortive strategies. 2. Continue yoga, medication and p.r.n. ibuprofen. Follow up for increasing symptoms. Signs and symptoms of concern reviewed. 3. Skin cancer history with basal cell CA. 1. She will continue dermatology surveillance care. 4. GI. 1. Anticipatory guidance regarding bowel hygiene strategies. 2. Next followup screening colonoscopy due in 10 years: 2020. 5. EXPORT PACKER. 1. She will continue care with Dr Potter. 2. She will [facility]. She is scheduled for six-month followup ultrasound in September and follow up at the [facility] March 2012. 6. Status post family history of diabetes. 1. Anticipatory guidance and expected course. Ed: Cardiac and diabetes risk factors. Encouraged continuation of healthy lifestyle efforts. Discussed exercise and nutrition. 2. Future labs were ordered for FLP, glucose and thyroid cascade. I will send her a note with results. 7. Immunization update. 1. She declines flu vaccination. 2. Tdap given and side effects reviewed. Sandhya was verbally educated on the above issues. No barriers to learning, she verbalized understanding. Sandhya was seen today for establish care. Diagnoses and associated orders for this visit: Immunization due - Tdap vaccine greater than or equal to 7yo IM Screening - Lipid Profile (Includes Cholesterol, Triglycerides, HDL, LDL); Future - Thyroid [place]; Future - Glucose, Serum; Future Recurrent cold sores - acyclovir (ZOVIRAX) 5 % ointment; Apply to lip at onset of tingling. Can three times per day Fh: diabetes mellitus - Glucose, Serum; Future Migraines Nurys Meza MD documented in this encounter Plan of Treatment Upcoming Encounters Date Type Department Care Team (Late st Contact Info) Description 03/21/2024 8:30 EDT Appointment Karin Saul [address] [place] [id number] 04/17/2024 10:50 EDT Appointment [facility] Endoscopy - [address] [phone] Marcellus Walsh MD [address] [place] [address], [facility] 5 [place] [phone] 05/01/2024 13:30 EDT Appointment [facility] Breast Imaging - [address] [phone] 05/15/2024 15:00 EST Telemedicine [facility] Gastroenterology - [address] [phone] Madhu Park MD PhD [address] [place] [address] 5 [place] [phone] 12/10/2024 11:30 EDT Office Visit [facility] Surgical Oncology - [address] [phone] [facility], PAPrabhaC [address] [place] [address], [facility] 2 [place] [phone] documented as of this encounter Visit Diagnoses Diagnosis Immunization due Need for prophylactic vaccination and inoculation against unspecified single disease Screening Screening for unspecified condition Recurrent cold sores Herpes simplex without mention of complication FH: diabetes mellitus Family history of diabetes mellitus Migraines Migraine, unspecified, without mention of intractable migraine without mention of status migrainosus documented in this encounter Orders Immunization/Injection Count Last Ordered Date First Ordered Date TDAP VACCINE =>7YO IM 1 04/21/2011 documented in this encounter Care Teams Recording Studio Set Up Worker Relationship Specialty Start Date End Date None, Provider PCP - General 03/10/11 05/26/11 documented as of this encounter
--- OUTSIDE RECORDS SUMMARY | 2024-03-20 21:37 | XMS_ITS | Encounter Summary ---
Author Organization [facility] Address [address] [place] [address] Care Team Providers Care Content Analyst Name Role Phone Indy Champion MD Primary Care Provider Reason for Referral * Radiology Services (Routine) - Closed Specialty Diagnoses / Procedures [facility] Referred To Contact Diagnoses Diffuse cystic mastopathy, unspecified laterality Procedures RAD US BREAST SCREENING ONLY BILATERAL Indy Stein PA-C [address] [place] [phone] Referral ID Status Reason Start Date Expiration Date Visits Re quested Visits Authorized [id number] Closed 04/15/2015 1 1 Reason for Visit * Reason Onset Date Comments Ultrasound 04/15/2015 high risk bilate ral breast ultrasound Encounter Details Date Type Department Care Team (Late st Contact Info) Description 04/15/2015 Orders Only [facility] Surgical Oncology - [address] [phone] Indy Stein PA-C [address] [place] [phone] Diffuse cystic mastopathy, unspecified laterality (Primary Dx) Social History Tobacco Use Types [...] No 04/15/2015 documented as of this encounter Plan of Treatment Upcoming Encounters Date Type Department Care Team (Late st Contact Info) Description 03/21/2024 8:30 EDT Appointment Karin Danielle Ultrasound [address] [place] [address] 04/17/2024 10:50 EDT Appointment [facility] Endoscopy - [address] [phone] Marcellus Walsh MD [address] [place] [phone] 05/01/2024 13:30 EDT Appointment [facility] Breast Imaging - [address] [phone] 05/15/2024 15:00 EST Telemedicine [facility] Gastroenterology - [address] [phone] Madhu Park MD PhD [address] [place] [phone] 12/10/2024 11:30 EDT Office Visit [facility] Surgical Oncology - [address] [address] [facility] PAPrabhaC [address] [facility] 2 [place] [phone] documented as of this encounter Procedures Procedure Name Priority Date/Time Associated Diagnosis Comments RAD US BREAST SCREENING ONLY BILATERAL Routine 10/15/2015 11:03 EDT Diffuse cystic mastopathy, unspecified laterality documented in this encounter Results * RAD US BREAST SCREENING ONLY BILATERAL (10/15/2015 11:03 EDT) Anatomical Region Laterality Modality Other 10/15/2015 11:0 3 EDT 10/29/2015 13:46 EDT Narrative 10/15/2015 13:50 EDT RAD US BREAST SCREENING ONLY BILATERAL 10/15/2015 11:03 AM Signs and Symptoms/Comments: ??N60.19-Diffuse cystic mastopathy of unspecified [id number]; high risk, diffuse cystic mastopathy, dense breast, multiple nodularity both breast Comparison: Mammograms and ultrasounds dated 09/02/2003 to present. Findings: Both breasts: Ultrasound of all 4 quadrants, subareolar and axillary regions of both breasts was performed. Since the prior study there has been no significant interval change in the bilateral ductal ectasia as well as scattered benign appearing bilateral masses. Many of these likely reflect cysts and fibrocystic nodules. No suspicious masses or lesions are noted. Impression: Both breasts: BI-RADS Category Assessment 2: Benign Findings. Annual bilateral screening mammogram is recommended for April 2016. Overall BI-RADS Category Assessment 2: Benign Findings. The results of the imaging studies were discussed with the patient by the staffing associate. Portions of this document may have been prepared with speech recognition software or keyboard data entry analyst techniques. Minor irregularities or keyboarding misprints may be present. Procedure Note Araseli Ko MD - 10/29/2015 RAD US BREAST SCREENING ONLY BILATERAL 10/15/2015 11:03 AM Signs and Symptoms/Comments: N60.19-Diffuse cystic mastopathy of unspecified [id number]; high risk, diffuse cystic mastopathy, dense breast, multiple nodularity both breast Comparison: Mammograms and ultrasounds dated 09/02/2003 to present. Findings: Both breasts: Ultrasound of all 4 quadrants, subareolar and axillary regions of both breasts was performed. Since the prior study there has been no significant interval change in the bilateral ductal ectasia as well as scattered benign appearing bilateral masses. Many of these likely reflect cysts and fibrocystic nodules. No suspicious masses or lesions are noted. Impression: Both breasts: BI-RADS Category Assessment 2: Benign Findings. Annual bilateral screening mammogram is recommended for April 2016. Overall BI-RADS Category Assessment 2: Benign Findings. The results of the imaging studies were discussed with the patient by the staffing associate. Portions of this document may have been prepared with speech recognition software or keyboard data entry analyst techniques. Minor irregularities or keyboarding misprints may be present. Indy Stein PA-C [facility] ORDERABL ES documented in this encounter Visit Diagnoses Diagnosis Diffuse cystic mastopathy, unspecified laterality- Primary documented in this encounter Care Teams Content Analyst Relationship Specialty Start Date End Date Idny Champion MD [address] [place] [address] PCP - General 04/15/15 documented as of this encounter
--- OUTSIDE RECORDS SUMMARY | 2024-03-20 21:37 | XMS_ITS | Encounter Summary ---
Author Organization [facility] Address [address] [place] [address] Care Team Providers Care Liquor Grinding Mill Operator Name Role Phone Nurys Meza MD Primary Care Prov ider Unavailable Reason for Visit * Reason Onset Date Comments Other 09/30/2011 Encounter Details Date Type Department Care Team (Late st Contact Info) Description 09/30/2011 Telephone [facility] Surgical Oncology - [facility] [address] [place] [address] Josh Daniels MD MSc [address] [place] [phone] Other Social History Tobacco Use Types Packs/Day Years [...] Telephone Encounter - Mari Macdonald RN - 10/01/2011 1239 EDT Spoke with patient. Told her that Dr. Daniels was not in clinic today but that I would relay her question to him next week and that someone would get back to her. She was fine with this plan. * Telephone Encounter - Natacha Nassar - 09/30/2011 1416 EDT Pt was having an ultra sound today and it was brought up to her that she might want to consider having a MRI. Pt wants to know if Dr Daniels would agree to this. Please call documented in this encounter Plan of Treatment Upcoming Encounters Date Type Department Care Team (Late st Contact Info) Description 03/21/2024 8:30 EDT Appointment Karin Danielle Ultrasound [address] [place], [place] [phone] 04/17/2024 10:50 EDT Appointment [facility] Endoscopy - [address] [phone] Marcellus Walsh MD [address] [place] [phone] 05/01/2024 13:30 EDT Appointment [facility] Breast Imaging - [address] [phone] 05/15/2024 15:00 EST Telemedicine [facility] Gastroenterology - [address] [phone] Madhu Park MD PhD [address] [place] [phone] 12/10/2024 11:30 EDT Office Visit [facility] Surgical Oncology - [address] [phone] [facility], PA-C [address] [place] [address], [facility] [address] [place] [phone] documented as of this encounter Visit Diagnoses Not on filedocumented in this encounter Care Teams Liquor Grinding Mill Operator Relationship Specialty Start Date End Date Nurys Meza MD PCP - General 05/27/11 04/14/15 documented as of this encounter
--- OUTSIDE RECORDS SUMMARY | 2024-03-20 21:37 | XMS_ITS | Encounter Summary ---
Author Organization [facility] Address [address] [place] [address] Care Team Providers Care Christian Science Reader Name Role Phone Nurys Meza MD Primary Care Prov ider Unavailable Encounter Details Date Type Department Care Team (Late st Contact Info) Description 03/06/2013 Results Only Imaging [facility] Surgical Oncology - [address] [phone] Josh Daniels MD MSc [address] [place] [id number] Social History Tobacco Use Types Packs/Day Years [...] 8:30 EDT Appointment Karin Danielle Ultrasound [address] [place], [place] [phone] 04/17/2024 10:50 EDT Appointment [facility] Endoscopy - [address] [phone] Marcellus Walsh MD [address] [facility], [address] [place] [phone] 05/01/2024 13:30 EDT Appointment [facility] Breast Imaging - [facility] [place] [address] [place], [place] [phone] 05/15/2024 15:00 EST Telemedicine [facility] Gastroenterology - [address] [phone] Madhu Park MD PhD [address] [facility], [address] [place] [phone] 12/10/2024 11:30 EDT Office Visit [facility] Surgical Oncology - [address] [phone] [facility] PA-C [address] [place] [address], [facility] [address] [place] [phone] documented as of this encounter Procedures Procedure Name Priority Date/Time Associated Diagnosis Comments MA MAMMO SCREENING DIGITAL 04/19/2013 9:08 EDT documented in this encounter Results * MA MAMMO SCREENING DIGITAL (04/19/2013 9:08 EDT) Anatomical Region Laterality Modality Other 04/19/2013 9:08 EDT 04/19/2013 10:54 EDT Narrative 04/19/2013 10:54 EDT Comparison has been made to previous [...] CATEGORY 1 - NEGATIVE END OF IMPRESSION Results and recommendations for follow-up were discussed with the patient by the development technologist at the time of the exam. These results will be communicated to your patient via a lay letter from Radiology. If any additional imaging is needed we will contact your patient directly. Procedure Note 10/10/2013 Comparison has been made to previous images. [...] CATEGORY 1 - NEGATIVE END OF IMPRESSION Results and recommendations for follow-up were discussed with the patient by the development technologist at the time of the exam. These results will be communicated to your patient via a lay letter from Radiology. If any additional imaging is needed we will contact your patient directly. Josh Daniels MD MSc [facility] MAMMOGRAPHY [facility] documented in this encounter Visit Diagnoses Not on filedocumented in this encounter Care Teams Christian Science Reader Relationship Specialty Start Date End Date Nurys Meza MD PCP - General 05/27/11 04/14/15 documented as of this encounter
--- OUTSIDE RECORDS SUMMARY | 2024-03-20 21:37 | XMS_ITS | Encounter Summary ---
Author Organization [facility] Address [address] [place] [address] Care Team Providers Care Grapple Crew Leader Name Role Phone Nurys Meza MD Primary Care Prov ider Unavailable Reason for Visit * Reason Comments Follow-up Encounter Details Date Type Department Care Team (Late st Contact Info) Description 04/23/2014 10:30 EDT Office Visit [facility] Surgical Oncology - [address] [phone] Indy Stein PA-C 111 [facility], Level [address] [place] [address] Diffuse cystic mastopathy (Primary Dx); Inconclusive mammogram due to dense [...] Sign Reading Time Taken Comments Blood Pressure 128/70 04/23/2014 1020 EDT Pulse 70 04/23/2014 1020 EDT Temperature 36.8 ??C (98.2 ??F) 04/23/2014 1020 EDT Respiratory Rate 16 04/23/2014 1020 EDT Oxygen Saturation - - Inhaled Oxygen Concentration - - Weight - - Height - - Body Mass Index - - documented in this encounter Discharge Diagnoses Diagnosis 610.1 DIFFUS CYSTIC MASTOPATHY[ICD-9-CM] 793.82 INCONCLUSIVE MAMMOGRAM[ICD-9-CM] documented in this encounter Progress Notes * Indy Alston PA - 04/23/2014 0932 EDT Subjective: Patient ID: Sandhya Lomas is an 53 y.o. female. Chief Complaint Patient presents with ??? Follow-up HPI DIVISION OF SURGICAL ONCOLOGY - BREAST [facility] FOLLOW-UP/PROGRESS NOTE - 04/23/2014 PROBLEM: 1. Breast density and fibrocystic breast changes. SUBJECTIVE: Sandhya Lomas is a 53 y.o. old female who is here today for her high-risk screening breast exam. [facility] due to diffuse cystic mastopathy. She denies change in her family history since last visit. Her screening has included yearly mammogramsalternating with screening ultrasounds. She inquires about MRI screening. Sandhya has never had a breast biopsy. She performs infrequent self breast exams. She has not noticed any new areas of concern, and denies any changes in breast skin or nipple discharge. Sandhya's weight has been stable and she is moderately active. CIRCUS HAND HISTORY: 2, para 2. Menarche at age 14. First delivery at age 36. Perimenopausal with cycles every 5 months or so. SOCIAL HISTORY: Sandhya is and lives in [place]. She has two sons. 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 FAMILY HISTORY: No family history of [...] Mohs surgery 11/2009 basal cell carcinoma, right sabianist ??? section 1995, 1997 ??? Abdomen surgery [...] substance abuse. - See HPI Objective: BP 128/70 Pulse 70 Temp(Src) 36.8 ??C (98.2 ??F) (Tympanic) Resp 16 Physical Exam Constitutional: She is oriented to person, place, and time. She appears well- developed and well-nourished. She does not appear ill. No distress. HENT: Head: Normocephalic and atraumatic. Nose: Nose normal. Eyes: Conjunctivae and EOM are normal. No scleral icterus. Neck: Normal range of motion. Neck supple. No tracheal deviation present. No mass present. Cardiovascular: Normal rate, regular rhythm [...] behavior is normal. Judgment and thought contentnormal. RAD ULTRASOUND BREAST BILATERAL - TWO BREASTS (55 MIN DURATION) 10/11/2013 9:21 AM Signs and Symptoms/Comments: 793.82-Inconclusive [id number]-CM; dense breast tissue/benign appearing right axillary node [...] were discussed with the patient by the founder and ceo at the time of the exam. Mammogram 04/23/2014: PRELIMINARY REPORT Comparison has been made to [...] BREASTS: Benign, no evidence of malignancy. Normal intervalfollow-up is recommended in 12 months. OVERALL ASSESSMENT - CATEGORY 2 - BENIGN END OF IMPRESSION. Assessment: Sandhya has a personal historyof extremely dense breast tissue, and breast nodularity. Her clinicalbreast exam today stable when compared to previous notes and there is no evidence for malignancy. Plan: 1. Sandhya will be scheduled for her next mammogram in 12 months, as well as other imaging: HR screening ultrasound in October 2014. 2. She will return to clinic in [...] with speech recognition software or keyboard data services developer techniques. Minor irregularities or keyboarding misprints may be present. Sandhya was seen today for follow-up. Diagnoses and associated orders for this visit: Diffuse cystic mastopathy Inconclusive mammogram due to dense breasts URI Son documented in this encounter Plan of Treatment Upcoming Encounters Date Type Department Care Team (Late st Contact Info) Description 03/21/2024 8:30 EDT Appointment [facility] Ul[facility] [address] [place], [place] [phone] 04/17/2024 10:[address] [facility] Endoscopy - [address] [phone] Marcellus Walsh MD [address] [place] [phone] 05/01/2024 13:[address] [facility] Breast Imaging - [address] [phone] 05/15/2024 15:[address] [facility] Gastroenterology - [address] [phone] Madhu Park MD PhD [address] [place] [phone] 12/10/2024 11:30 EDT Office Visit [facility] Surgical Oncology - [address] [phone] Magnolia Blood PA-C [address] [place] [address] 2 [place] [phone] documented as of this encounter Visit Diagnoses Diagnosis Diffuse cystic mastopathy- Primary Inconclusive mammogram due to dense breasts Inconclusive mammogram documented in this encounter Care Teams Grapple Crew Leader Relationship Specialty Start Date End Date Nurys Meza MD PCP - General 05/27/11 04/14/15 documented as of this encounter
--- OUTSIDE RECORDS SUMMARY | 2024-03-20 21:37 | XMS_ITS | Encounter Summary ---
Author Organization [facility] Address [address] [place] [address] Care Team Providers Care Government Employee Name Role Phone Nurys Meza MD Primary Care Prov ider Unavailable Encounter Details Date Type Department Care Team (Late st Contact Info) Description 10/04/2012 7:44 EDT - 10/04/2012 23:59 EDT Hospital Encounter [address] [address] Michael Fajardo MD 111 [facility], [address] [place] [phone] Discharge Disposition: Home or Self Care Social [...] Code Departure Means Destination Home or Self Penitentiary documented in this encounter Plan of Treatment Upcoming Encounters Date Type Department Care Team (Late st Contact Info) Description 03/21/2024 8:30 EDT Appointment [facility]in Danielle Ultrasound [address] [place] [address] 04/17/2024 10:50 EDT Appointment [facility] Endoscopy - [address] [phone] Marcellus Walsh MD [address] [place] [phone] 05/01/2024 13:30 EDT Appointment [facility] Breast Imaging - [address] [phone] 05/15/2024 15:00 EST Telemedicine [facility] Gastroenterology - [address] [phone] Madhu Park MD PhD [address] [phone] 12/10/2024 11:30 EDT Office Visit [facility] Surgical Oncology - [facility] [address] [place] [address] Magnolia Blood PA-C 111 [facility], [address] [place] [phone] documented as of this encounter Visit Diagnoses Not on filedocumented in this encounter Care Teams Government Employee Relationship Specialty Start Date End Date Nurys Meza MD PCP - General 05/27/11 04/14/15 documented as of this encounter
--- OUTSIDE RECORDS SUMMARY | 2024-03-20 21:37 | XMS_ITS | Encounter Summary ---
Author Organization [facility] Address [address] [place] [address] Care Team Providers Care Sales Activity Manager Name Role Phone None, Provider Primary Care Provider Unavailabl e Reason for Visit * Reason Onset Date Comments Other 04/12/2011 Patient wants to be seen by another provider for follow up. Encounter Details Date Type Department Care Team (Late st Contact Info) Description 04/12/2011 Telephone [facility] Dermatology 5th Floor [address] [address] Katina Harper PA [address] [phone] Other (Patient wants to be seen by another provider for follow up.) Social History Tobacco Use Types Packs/Day Years [...] encounter Miscellaneous Notes * Telephone Encounter - Ambreen Briceno - 04/12/2011 1433 EDT Patient will get back to us and let us know what she would like to do, from here forward. Ambreen Briceno 04/12/2011 14:33 documented in this encounter Plan of Treatment Upcoming Encounters Date Type Department Care Team (Late st Contact Info) Description 03/21/2024 8:30 EDT Appointment [facility] Danielle Ultrasound [address] [place] [address] 04/17/2024 10:50 EDT Appointment [facility] Endoscopy - [address] [phone] Marcellus Walsh MD [address] [place] [address] 5 [place] [phone] 05/01/2024 13:30 EDT Appointment [facility] Breast Imaging - [address] [phone] 05/15/2024 15:00 EST Telemedicine [facility] Gastroenterology - [address] [phone] Madhu Park MD PhD [address] [place] [phone] 12/10/2024 11:30 EDT Office Visit [facility] Surgical Oncology - [address] [phone] Magnolia Blood PA-C [address] [place] [address], [facility] [address] [place] [phone] documented as of this encounter Visit Diagnoses Not on filedocumented in this encounter Care Teams Sales Activity Manager Relationship Specialty Start Date End Date None, Provider PCP - General 03/10/11 05/26/11 documented as of this encounter
--- OUTSIDE RECORDS SUMMARY | 2024-03-20 21:37 | XMS_ITS | Encounter Summary ---
Author Organization [facility] Address [address] [place] [address] Care Team Providers Care Sales Assistant Name Role Phone Indy Champion MD Primary Care Provider Encounter Details Date Type Department Care Team (Late st Contact Info) Description 11/03/2016 Results Only Imaging [facility] Surgical Oncology - [address] [phone] Indy Stein PA-C 111 [facility], Level [address] [place] [phone] Social History Tobacco Use Types [...] 8:30 EDT Appointment Karin Danielle Ultrasound [address] [place] [address] 04/17/2024 10:50 EDT Appointment [facility] Endoscopy - [address] [phone] Marcellus Walsh MD [address] [place] [address] 5 [place] [phone] 05/01/2024 13:30 EDT Appointment [facility] Breast Imaging - [address] [phone] 05/15/2024 15:00 EST Telemedicine [facility] Gastroenterology - [address] [phone] Madhu Park MD PhD [address] [place] [address] 5 [place] [phone] 12/10/2024 11:30 EDT Office Visit [facility] Surgical Oncology - [address] [phone] Magnolia Blood PA-C [address] [place] [address], [facility] 2 [place] [phone] documented as of this encounter Procedures Procedure Name Priority Date/Time Associated Diagnosis Comments UNI LEFT ONLY POST PROCEDURE 2D MAMMO CHARGES ATTACHED 11/03/2016 10:45 EDT RAD US BREAST BIOPSY 11/03/2016 10:44 EDT documented in this encounter Results * UNI LEFT ONLY POST PROCEDURE 2D MAMMO CHARGES ATTACHED (11/03/2016 10:45 EDT) Anatomical Region Laterality Modality Other 11/03/2016 10:4 5 EDT 11/08/2016 8:41 EDT Narrative 11/03/2016 10:54 EDT Addendum Begins The images and pathology of the mass biopsied in the left breast at 10 o'clock were reviewed on 11/08/[address] Diaz. The biopsy was performed by Dr. Kendall. The pathology shows : Fibrocystic changes including papillary apocrine hyperplasia and dense intralobular fibrosis. This is felt to be benign and concordant. Routine screening mammography is recommended. The patient has been having screening ultrasound as well due to dense breasts. A freight representative of the Radiology Department will call the patient with the results and recommendations. Addendum Ends RAD US BREAST BIOPSY, UNI LEFT ONLY POST PROCEDURE 2D MAMMO CHARGES ATTACHED ??11/03/2016 10:44 AM Signs and Symptoms/Comments: ovoid mass 10:00 left breast Comparison: Screening sonography performed earlier today. History: An enlarging oval mixed echogenicity mass was identified in the left breast upper inner quadrant at 10 o'clock, 6 cm from the nipple. Ultrasound-guided core biopsy was requested. Procedure: Written and verbal consents were obtained from the patient for ultrasound guided core biopsy of a mass in the left breast at 10 o'clock, 6 cm from the nipple. ??The risks, benefits and alternatives to this procedure were discussed with the patient. Once the patient's full name, date of , and side of biopsy were confirmed, the area of concern was rescanned, the lesion in question was targeted and the patient's skin was marked. Site verification and skin marking was performed according to established site marking procedure. A safety timeout was performed. The skin of the left breast was prepped and draped in the usual sterile fashion. Using ultrasound guidance, ??6.0 cc of buffered 1% lidocaine was used for local anesthesia. The skin was incised with a #11 blade. Three ??core biopsies were obtained using a coaxial system with a 14-gauge Achieve biopsy needle inserted through a 13-gauge introducer. A HydroMark coil-shaped Mini clip was deployed in the area biopsied. Postprocedure digital mammography was performed in craniocaudal and true lateral 2-D projections; demonstrating the clip to to be located in its expected location but it does not correspond to any previously identified mammographic finding. The patient tolerated procedure well, without immediate postprocedural complications. The patient was told that our biopsy gericare aide teacher will notify her of the results via phone in 3-5 business days. Impression: Successful ultrasound-guided core biopsy. Portions of this document may have been prepared with speech recognition software or keyboard clinical data assistant techniques. Minor irregularities or keyboarding misprints may be present. Procedure Note Carissa Kendall MD / Estefani Bautista MD - 11/08/2016 Addendum Begins The images and pathology of the mass biopsied in the left breast at 10 o'clock were reviewed on 11/08/[address] Bautista and Faiza. The biopsy was performed by Dr. Kendall. The pathology shows : Fibrocystic changes including papillary apocrine hyperplasia and dense intralobular fibrosis. This is felt to be benign and concordant. Routine screening mammography is recommended. The patient has been having screening ultrasound as well due to dense breasts. A freight representative of the Radiology Department will call the patient with the results and recommendations. Addendum Ends RAD US BREAST BIOPSY, UNI LEFT ONLY POST PROCEDURE 2D MAMMO CHARGES ATTACHED 11/03/2016 10:44 AM Signs and Symptoms/Comments: ovoid mass 10:00 left breast Comparison: Screening sonography performed earlier today. History: An enlarging oval mixed echogenicity mass was identified in the left breast upper inner quadrant at 10 o'clock, 6 cm from the nipple. Ultrasound-guided core biopsy was requested. Procedure: Written and verbal consents were obtained from the patient for ultrasound guided core biopsy of a mass in the left breast at 10 o'clock, 6 cm from the nipple. The risks, benefits and alternatives to this procedure were discussed with the patient. Once the patient's full name, date of , and side of biopsy were confirmed, the area of concern was rescanned, the lesion in question was targeted and the patient's skin was marked. Site verification and skin marking was performed according to established site marking procedure. A safety timeout was performed. The skin of the left breast was prepped and draped in the usual sterile fashion. Using ultrasound guidance, 6.0 cc of buffered 1% lidocaine was used for local anesthesia. The skin was incised with a #11 blade. Three core biopsies were obtained using a coaxial system with a 14-gauge Achieve biopsy needle inserted through a 13-gauge introducer. A HydroMark coil-shaped Mini clip was deployed in the area biopsied. Postprocedure digital mammography was performed in craniocaudal and true lateral 2-D projections; demonstrating the clip to to be located in its expected location but it does not correspond to any previously identified mammographic finding. The patient tolerated procedure well, without immediate postprocedural complications. The patient was told that our biopsy gericare aide teacher will notify her of the results via phone in 3-5 business days. Impression: Successful ultrasound-guided core biopsy. Portions of this document may have been prepared with speech recognition software or keyboard clinical data assistant techniques. Minor irregularities or keyboarding misprints may be present. Inyd [facility] IM MAMMOGRAPHY ORDERABLES * RAD US BREAST BIOPSY (11/03/2016 10:44 EDT) Anatomical Region Laterality Modality Other 11/03/2016 10:4 4 EDT 11/08/2016 9:12 EDT Narrative 11/03/2016 10:54 EDT Addendum Begins The images and pathology of the mass biopsied in the left breast at 10 o'clock were reviewed on 11/08/[address] Bautista and Faiza. The biopsy was performed by Dr. Kendall. The pathology shows : Fibrocystic changes including papillary apocrine hyperplasia and dense intralobular fibrosis. This is felt to be benign and concordant. Routine screening mammography is recommended. The patient has been having screening ultrasound as well due to dense breasts. A freight representative of the Radiology Department will call the patient with the results and recommendations. Addendum Ends RAD US BREAST BIOPSY, UNI LEFT ONLY POST PROCEDURE 2D MAMMO CHARGES ATTACHED ??11/03/2016 10:44 AM Signs and Symptoms/Comments: ovoid mass 10:00 left breast Comparison: Screening sonography performed earlier today. History: An enlarging oval mixed echogenicity mass was identified in the left breast upper inner quadrant at 10 o'clock, 6 cm from the nipple. Ultrasound-guided core biopsy was requested. Procedure: Written and verbal consents were obtained from the patient for ultrasound guided core biopsy of a mass in the left breast at 10 o'clock, 6 cm from the nipple. ??The risks, benefits and alternatives to this procedure were discussed with the patient. Once the patient's full name, date of , and side of biopsy were confirmed, the area of concern was rescanned, the lesion in question was targeted and the patient's skin was marked. Site verification and skin marking was performed according to established site marking procedure. A safety timeout was performed. The skin of the left breast was prepped and draped in the usual sterile fashion. Using ultrasound guidance, ??6.0 cc of buffered 1% lidocaine was used for local anesthesia. The skin was incised with a #11 blade. Three ??core biopsies were obtained using a coaxial system with a 14-gauge Achieve biopsy needle inserted through a 13-gauge introducer. A HydroMark coil-shaped Mini clip was deployed in the area biopsied. Postprocedure digital mammography was performed in craniocaudal and true lateral 2-D projections; demonstrating the clip to to be located in its expected location but it does not correspond to any previously identified mammographic finding. The patient tolerated procedure well, without immediate postprocedural complications. The patient was told that our biopsy gericare aide teacher will notify her of the results via phone in 3-5 business days. Impression: Successful ultrasound-guided core biopsy. Portions of this document may have been prepared with speech recognition software or keyboard clinical data assistant techniques. Minor irregularities or keyboarding misprints may be present. Procedure Note Carissa Kendall MD / Estefani Bautista MD - 11/08/2016 Addendum Begins The images and pathology of the mass biopsied in the left breast at 10 o'clock were reviewed on 11/08/[address] Bautista and Faiza. The biopsy was performed by Dr. Kendall. The pathology shows : Fibrocystic changes including papillary apocrine hyperplasia and dense intralobular fibrosis. This is felt to be benign and concordant. Routine screening mammography is recommended. The patient has been having screening ultrasound as well due to dense breasts. A freight representative of the Radiology Department will call the patient with the results and recommendations. Addendum Ends RAD US BREAST BIOPSY, UNI LEFT ONLY POST PROCEDURE 2D MAMMO CHARGES ATTACHED 11/03/2016 10:44 AM Signs and Symptoms/Comments: ovoid mass 10:00 left breast Comparison: Screening sonography performed earlier today. History: An enlarging oval mixed echogenicity mass was identified in the left breast upper inner quadrant at 10 o'clock, 6 cm from the nipple. Ultrasound-guided core biopsy was requested. Procedure: Written and verbal consents were obtained from the patient for ultrasound guided core biopsy of a mass in the left breast at 10 o'clock, 6 cm from the nipple. The risks, benefits and alternatives to this procedure were discussed with the patient. Once the patient's full name, date of , and side of biopsy were confirmed, the area of concern was rescanned, the lesion in question was targeted and the patient's skin was marked. Site verification and skin marking was performed according to established site marking procedure. A safety timeout was performed. The skin of the left breast was prepped and draped in the usual sterile fashion. Using ultrasound guidance, 6.0 cc of buffered 1% lidocaine was used for local anesthesia. The skin was incised with a #11 blade. Three core biopsies were obtained using a coaxial system with a 14-gauge Achieve biopsy needle inserted through a 13-gauge introducer. A HydroMark coil-shaped Mini clip was deployed in the area biopsied. Postprocedure digital mammography was performed in craniocaudal and true lateral 2-D projections; demonstrating the clip to to be located in its expected location but it does not correspond to any previously identified mammographic finding. The patient tolerated procedure well, without immediate postprocedural complications. The patient was told that our biopsy gericare aide teacher will notify her of the results via phone in 3-5 business days. Impression: Successful ultrasound-guided core biopsy. Portions of this document may have been prepared with speech recognition software or keyboard clinical data assistant techniques. Minor irregularities or keyboarding misprints may be present. Indy Stein PA-C [facility] ORDERABL ES documented in this encounter Visit Diagnoses Not on filedocumented in this encounter Care Teams Sales Assistant Relationship Specialty Start Date End Date Indy Champion MD [address] [place] [address] PCP - General 04/15/15 documented as of this encounter
--- OUTSIDE RECORDS SUMMARY | 2024-03-20 21:37 | XMS_ITS | Encounter Summary ---
Author Organization [facility] Address [address] [place] [address] Care Team Providers Care Locomotive Crane Operator Name Role Phone Joselin Champion MD Primary Care Provider Encounter Details Date Type Department Care Team (Late st Contact Info) Description 05/27/2015 Results Only [facility]- [facility] [phone] Joselin Champion MD [address] [place] [address] Social History Tobacco Use Types Packs/Day Years [...] Description 03/21/2024 8:30 EDT Appointment Karin Danielle [facility] [address] [place] [address] 04/17/2024 10:50 EDT Appointment [facility] Endoscopy - [address] [phone] Marcellus Walsh MD [address] [place] [address] 5 [place] [phone] 05/01/2024 13:30 EDT Appointment [facility] Breast Imaging - [address] [phone] 05/15/2024 15:00 EST Telemedicine [facility] Gastroenterology - [address] [phone] Madhu Park MD PhD [address] [place] [address] 5 [place] [phone] 12/10/2024 11:30 EDT Office Visit [facility] Surgical Oncology - [address] [phone] Magnolia Blood, PA-C [address] [place] [address], [facility] [address] [place] [phone] documented as of this encounter Procedures Procedure Name Priority Date/Time Associated Diagnosis Comments PAP TEST- RESULT ONLY Routine 05/27/2015 0:00 EST documented in this encounter Results * PAP TEST- RESULT ONLY (05/27/2015 0:00 EST) Pathology Report: CYTOPATHOLOGY REPORT Reports generated via electronic interface contain original data; however they are lacking the format of the original report. Caution should be taken when reading/interpreti ng unformatted reports. Name: ? SANDHYA BARRETT ? Accession #: ? [id number] ? : ? 1960 (Age: 54) ??F ?Collect Date: ? 05/27/2015 ? Location: ? [facility] ? Receive Date: ? 05/28/2015 ? Provider: JOSELIN CHAMPION MD Copy to: ? Final Report SPECIMEN ADEQUACY ? Satisfactory for Evaluation - transformation zone component present GENERAL CATEGORIZATION ? Negative for Intraepithelial Lesion or Malignancy ?? Menstrual/Pregnanc y Status: ??Menopausal: S/P Hormonal/Contracep tive status: None Treatment History: None Specimen/Source: ??Pap Test, Cervix/Endocervix, ThinPrep Imaging System with manual evaluation Document reviewed and electronically signed by: ? SMITH Schulz(ASCP) ? Report ??Date: 05/29/2015 13:16 HPV with Pap Test ? Date Ordered: ? 05/29/2015 ? Status: ?? Signed Out ?Date Complete: ? 06/02/2015 ? By: ??System Interface ? Date Reported: ? 06/02/2015 ? Interpretation RESULT: Negative for HPV. No E6 or E7 mRNA is detected from HPV types 16,18,31,33,35, 39,45,51,52,56,58, 59,66, and 68 by irish moss gatherer mediated amplification. Comments Document reviewed and electronically signed by: ? System Interface ? Report date: 06/02/2015 By the signature above, the attending physician certifies that he/she has personally conducted a gross and/or microscopic examination of the described specimens and rendered or confirmed the above diagnosis. End of Report [facility] 05/27/2015 05/28/2015 Joselin Champion MD PATHOLOGY ORDER DARCY [facility] [address] [place] [address] documented in this encounter Visit Diagnoses Not on filedocumented in this encounter Care Teams Locomotive Crane Operator Relationship Specialty Start Date End Date Joselin Champion MD [address] [place] [address] PCP - General 04/15/15 documented as of this encounter
--- OUTSIDE RECORDS SUMMARY | 2024-03-20 21:37 | XMS_ITS | Encounter Summary ---
Author Organization [facility] Address [address] [place] [address] Care Team Providers Care Top Collar Baster Name Role Phone Indy Champion MD Primary Care Provider Reason for Visit * Reason Comments Follow-up Encounter Details Date Type Department Care Team (Late st Contact Info) Description 04/16/2016 11:[address] [facility] Surgical Oncology - [address] [phone] Indy Stein PA-C [address] [place] [address], [address] [place] [address] Diffuse cystic mastopathy, unspecified laterality [...] Sign Reading Time Taken Comments Blood Pressure 112/53 04/16/2016 1129 EDT Pulse 50 04/16/2016 1129 EDT Temperature 36 ??C (96.8 ??F) 04/16/2016 1129 EDT Respiratory Rate - - Oxygen Saturation [...] No 04/15/2015 documented as of this encounter Progress Notes * Indy Alston PA - 04/16/2016 1130 EDT Subjective: Patient ID: Sandhya Lomas is an 55 y.o. female. Chief Complaint Patient presents with ??? Follow-up HPI DIVISION OF SURGICAL ONCOLOGY - BREAST [facility] FOLLOW-UP/PROGRESS NOTE - 04/16/2016 PROBLEM: 1. Breast density and fibrocystic breast changes. SUBJECTIVE: Sandhya Lomas is a 55 y.o. old female who is here today for her high-risk screening breast exam. Sandhy[facility] due to family history of breast cancer. She denies change in her family history since last visit. Screening has included annual mammogram and HR screening ultrasounds. Sandhya has not had a breast biopsy in the past. She does perform regular self breast exams. She has not noticed any new areas of concern, and denies any changes in breast skin or nipple discharge. 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 Menarche at age 14. First delivery at age 36. Perimenopausal with cycles every 5 months or so. SOCIAL HISTORY: Sandhya is and lives in [place]. She has two sons. 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 As you recall one of her sons is in college at [employer] in [place] studying business with an ultimate goal for [employer] school. Her other son is in high school in applying for different colleges to pursue a film career. FAMILY HISTORY: No family history of breast and/or ovarian cancer. Patient Active Problem List Diagnosis ??? Basal cell carcinoma of skin ??? Inconclusive mammogram due to dense breasts ??? Diffuse cystic mastopathy Past Medical History Diagnosis Date ??? Anemia resolved Iron deficiency anemia winter 2008 ??? Basal cell carcinoma ??? BCC (basal cell carcinoma), leg 12/11/2010 right vázquez ??? Complication of anesthesia difficulty waking from general anesthesia ??? Diffuse cystic mastopathy 12/01/2009 ??? S/P colonoscopy 03/2011 Norm. 10 yr f/u Past Surgical History Procedure Laterality Date ??? Mohs surgery 11/2009 basal cell carcinoma, right protestant ??? section 1995, 1997 ??? Abdomen surgery [...] times per day 1 Tube 1 ??? valacyclovir (VALTREX) 1 [...] and suicidal ideas. - See HPI Objective: Visit Vitals ??? BP 112/53 ??? Pulse 50 ??? Temp 36 ??C (96.8 ??F) (Tympanic) Physical Exam Constitutional: She is oriented to [...] Vitals reviewed. Mammogram was completed on April 16, 2016 reported as BI-RADS 1. Her breasts are noted to be extremely dense. She had a high risk screening ultrasound completed on October 15, 2015 this is reported as BI-RADS 2. Assessment: Lianet continues to be seen here in our clinic due to very dense fibroglandular breast tissue. She has an extremely difficult clinical breast evaluation. Due to her diffuse cystic mastopathy we also continue to recommend annual high risk screening ultrasound and supplement to her mammogram. She is very amenable to this plan. Her clinical breast evaluation although difficult continues to be stable and without evidence for malignancy. Plan: 1. Sandhya will be scheduled for her next mammogram in 12 months, as well as other imaging: October 2016 2. She will return to clinic in 12 months for her next breast exam. 6 months with PCP or CLEAN IN PLACES OPERATOR for anadditional CBE. 3. She is also [...] with speech recognition software or keyboard data operations leader techniques. Minor irregularities or keyboarding misprints may be present. (N60.19) Diffuse cystic mastopathy, unspecified laterality (primary encounter diagnosis) (R92.2) Inconclusive mammogram due to dense breasts URI Son No orders of the defined types were placed in this encounter. I was directly supervised by Dr. Michael Fajardo, who was in the suite and immediately available for the entire time the above documented service was provided. * Michael Fajardo MD - 04/16/2016 1130 EDT I was available for consultation on this patient. documented in this encounter Plan of Treatment Upcoming Encounters Date Type Department Care Team (Late st Contact Info) Description 03/21/2024 8:30 EDT Appointment Karin Danielle Ultrasound [address] [place] [address] 04/17/2024 10:[address] [facility] Endoscopy - [facility] [address] [place], [place] [phone] Marcellus Walsh MD [address] [facility], [address] [place] [phone] 05/01/2024 13:[address] [facility] Breast Imaging - [address] [phone] 05/15/2024 15:[address] [facility] Gastroenterology - [address] [phone] Madhu Park MD PhD [address] [facility], [facility] [address] [place] [phone] 12/10/2024 11:[address] [facility] Surgical Oncology - [address] [phone] Magnolia Blood PA-C [address] [facility], [facility] [address] [place] [address] documented as of this encounter Visit Diagnoses Diagnosis Diffuse cystic mastopathy, unspecified laterality- Primary Inconclusive mammogram due to dense breasts Inconclusive mammogram documented in this encounter Care Teams Top Collar Baster Relationship Specialty Start Date End Date Indy Champion MD [address] [place] [address] PCP - General 04/15/15 documented as of this encounter
--- OUTSIDE RECORDS SUMMARY | 2024-03-20 21:37 | XMS_ITS | Encounter Summary ---
Author Organization [facility] Address [address] [place] [address] Care Team Providers Care Stores Despatch Hand Name Role Phone Indy Champion MD Primary Care Provider Reason for Visit * Reason Comments Basal Cell Carcinoma Nasal tip Encounter Details Date Type Department Care Team (Late st Contact Info) Description 07/18/2015 8:30 EST Office Visit [facility] Dermatology 5th Floor [address] [address] Frederick Romero MD [address] [place] [address], [address] [place] [address] Basal cell carcinoma of nasal tip (Primary Dx) Social History Tobacco Use Types [...] Sign Reading Time Taken Comments Blood Pressure 102/69 07/18/201528 EST Pulse 64 07/18/2015 0828 EST Temperature 36.3 ??C (97.3 ??F) 07/18/2015 0828 EST Respiratory Rate - - Oxygen Saturation - - Inhaled Oxygen Concentration - - Weight - - Height - - Body Mass Index - - documented in this encounter Functional Status Functional Status Response Date of Assess ment Because of a physical, menta cedric or emotional condition, does this person have difficulty doing errands alone such as visiting a doctor's office or shopping? No 04/15/2015 Cognitive Status Response Date of Assessm ent Because of a physical, menta l, or emotional condition, does this person have serious difficulty concentrating, remembering, or making decisions? No 04/15/2015 documented as of this encounter Discharge Diagnoses Diagnosis C44.311 Basal cell carcinoma of skin of nose-C44.311[ICD-10-CM] documented in this encounter Patient Instructions * Patient Instructions* Frederick Romero MD - 07/18/2015 8:34 EST WOUND CARE INSTRUCTIONS FOR SKIN SURGERY The BANDAGE should remain in place for 24 hours. You may shower or bathe after 24 hours; remove thebandage and replace it after the shower (see wound care section below for instructions on how to dothis). DISCOMFORT: Expect some discomfort. Extra-Strength Tylenol, taken as directed by the black oxide coating equipment tender, will help relieve pain. If the pain is severe please call the office. BLEEDING: You may notice some [...] please call our office. WOUND CARE: ?? Change the dressing daily and when it becomes wet. ?? Wash hands with soap and water before changing the dressing. ?? Clean the wound with mild soap [...] longer until the skin has healed completely. If your sutures require removal, you will receive specific instructions regarding when and where tohave them removed. Dissolvable sutures generally fall out in 7 to 14 days. If there are suture remnants still present after 7 days you may pull them out with tweezers. CONTACT THE OFFICE IF YOU EXPERIENCE: ?? Increasing redness ?? Wound is warm or hot to touch ?? Increasing pain ?? Drainage with a foul odor ?? Rapid swelling of the wound ?? Fever or chills Please call our office or . documented in this encounter Progress Notes * Frederick Romero MD - 07/18/2015 0835 EST Images from the original note were not included. MOHS SURGERY POST-OP SUMMARY Sandhya Lomas is a 54 y.o. year old female who underwent Mohs surgery today 07/18/2015. The following is a summary of the operative findings: Lesion 1 basal cell carcinoma Location right nasal tip Size Preop (cm) 0.3 x 0.2 cm Size Postop (cm) 0.5 x 0.6 cm Stages 2 Depth of Excision muscle Repair bilobed flap Ms. Lomas was discharged from the operative suite in good condition. She was carefully instructed in postoperative wound care both verbally and in writing. Return in about 6 months (around 01/16/2016)for Mohs follow up. Note: None Frederick Romero MD 07/18/2015 8:35 * Frederick Romero MD - 07/18/2015 0833 EST MOHS EVALUATION NOTE Chief Complaint Patient presents with ??? Basal Cell Carcinoma Nasal tip Subjective: Sandhya Lomas is a 54 y.o. year old female who is referred to me for evaluation and treatment ofa basal cell carcinoma of the right nasal tip by Peri Cordero MD. The patient is referred to consider Mohs surgery versus other treatment options. The patient notes that this lesion has been presentfor 3 or 4 months, and reports bleeding and slow growth. The patient???s risk factors for skin cancer include history of basal cell carcinoma, history of multiple sunburns, west type I or II skin and avid outdoor lifestyle. Risk factors: Pacemaker/ICD: None Anticoagulants: None Total joint replacements/valves: None Allergies: Patient has No Known Allergies. Immunosuppression: None For full Medical, Surgical, Family, and Social histories as well as Review of Systems, Medications and Allergies please see those sections of this encounter in the electronic chart which I have personally reviewed. Objective: Complete physical examination of the affected area in the office today revealed a 0.3 cm x 0.2 cm pearly and pink, macule located on the right nasal tip. Careful examination of the draining lymph nodes revealed no suspicious adenopathy. Pathology: SKIN OF NASAL TIP, RIGHT, SHAVE BIOPSY: - Basal cell carcinoma, nodular type. ??- Basal cell carcinoma present at peripheral and deep tissue edges. Assessment: - Nodular basal cell carcinoma of right nasal tip Plan: Ms. Lomas and I discussed the meaning of the diagnosis of skin cancer and the options for treatment including curettage and electrodesiccation, radiation therapy, conventional excision, and excisionby Mohs micrographic surgery. Due to the need [...] all of her questions were answered satisfactorily. In addition the patient was provided with written material that describes the Mohs procedure and related matters. Ms. Lomas understands that following Mohs surgery an operative repair may be required and may involve substantial suturing. We have jointly planned to have me repair the wound at the day of surgery.She understands that following reconstruction, if performed, many months may elapse before a decision can be made about the final cosmetic result, and that, in some cases a revision may be necessary to optimize the outcome. I explained to Ms. Lomas that in addition to the risk of recurrence from her skin cancer she has an increased risk of developing additional new skin cancers elsewhere. For that reason, follow up for ongoing skin surveillance examinations, after surgery, will be imperative. The patient has been scheduled to undergo surgery today. Note: None Frederick Romero MD 07/18/2015 8:33 MOHS OPERATIVE REPORT Patient Name: Sandhya Lomas Date of Service: July 18, 2015 Surgeon: Frederick Romero MD Leasing Machine Tender: Alexi Hall PA-C Case #: [id number] Preoperative Diagnosis: basal cell carcinoma Preoperative Procedure: Mohs micrographic surgery Location of Lesion: right nasal tip Preoperative Lesion Size: 0.3 cm x 0.2 cm Preoperative Procedure: Mohs microscopically-controlled fresh tissue excision Indications: The patient presents with a basal cell carcinoma. Because of the histologic and clinical nature of the lesion, as well as its location, the need to achieve the highest cure rate while providing maximum tissue preservation warranted tumor extirpation via microscopically-controlled excision using the Mohs fresh tissue technique. Alternate therapeutic options were discussed on several occasions prior to surgery. After informed consent was obtained and appropriate instruction was provided, the patient underwent tumor extirpation by the Mohs fresh tissue technique as follows: PROCEDURE - INITIAL STAGE: Patient position: supine Anesthesia: 1% lidocaine with epinephrine 1:100,000 local infiltration Prep: Povodine Iodine The patient was brought to the operative suite. The lesion was identified and was prepped in a sterile fashion. The area was infiltrated with lidocaine/epinephrine to achieve complete anesthesia and to augment hemostasis. An initial beveled excision was performed to the muscle with a scalpel blade and tissue scissors as indicated. A hash was created in the specimen and within the adjacent epidermis for marking purposes. The Mohs specimen was excised in a sharp manner, and carefully placed in proper orientation on the surgical tray. Hemostasis of the operative wound was obtained with careful spot electrocoagulation. A sterile non-adherent dressing was applied to the operative wound. The Mohs tissue specimen was carefully transferred to the lab where the tissue was divided, and color inked for orientation by me. These specimens were mapped and then handed personally to the administrative technician for frozen sectioning. The tissue was embedded so that the deep and surface margins lay in the same plane, and sections were made through this plane. Once the slide preparation was complete I personally performed histologic evaluation and interpretation of all sections. A summary of my findingsmay be found below. Stage 1 findings: Wound Depth perichondrium Sections Created 2 Number of Sections Containing Tumor 1 (Infiltrative basal cell carcinoma -- Arising from the epidermis and extending into the dermis are cords and strands of infiltrative basaloid keratinocytes with a spiky growth pattern.) With the patient clear of microscopic tumor, surgery was considered complete. Postoperative Wound Size: 0.5 x 0.6 cm Final Diagnosis: basal cell carcinoma Final Procedure: Mohs micrographic surgery Blood Loss: Minimal Operative Time: 60 minutes Complications: None Note: None I was present during all garcia and critical portions of this procedure and remained immediately available throughout. I performed the garcia elements of the procedure. Frederick Romero MD 07/18/2015 11:57 Dermatology Flap Repair PATIENT INFORMATION: Sandhya Lomas SURGEON: Frederick Romero MD WHEEL PRESSER: Alexi Hall PA-C PREOPERATIVE DIAGNOSIS: Basal cell carcinoma PREOPERATIVE PROCEDURE: Adjacent Tissue Transfer LOCATION(S): right nasal tip WOUND DIMENSIONS: 0.5 x 0.6 cm INDICATIONS: The patient presents with an operative wound following tumor removal. After careful consideration and discussion of all repair options, it was determined that, given the location and nature of the defect, an adjacent tissue transfer offered the best chance for preservation of normal anatomic and functional relationships. Alternate options were discussed and the patient was encouraged to ask questions, which, I believe, were answered appropriately. Informed consent was obtained in writing. Afterinformed consent was obtained and appropriate instruction was provided, the patient underwent operative repair as follows. PROCEDURE: Patient position: supine Anesthesia: 1% lidocaine with epinephrine 1:100,000 local infiltration Prep: Povodine Iodine The Mohs operative defect was identified, and the area was infiltrated with lidocaine/epinephrine to achieve complete anesthesia and to augment hemostasis. The area was prepped in the usual sterile fashion and was draped with sterile drapes. A bilobed transposition flap was drawn on the skin with asterile marking pen using care to place incisions within functional and cosmetic lines to minimize the postoperative distortion of normal tissues. The wound edges were prepared using a # 15 scalpel blade to precisely delineate the operative repair and were then extensively undermined with combined blunt and, as needed, sharp dissection taking great care to avoid functionally important vessels andnerves. Undermining was carried out at the level of the muscle. Hemostasis of the operative wound was obtained with careful spot electrocoagulation, and ligature as indicated. The wound edges were then approximated using 5.0 Monocryl (poliglecaprone 25) buried interrupted sutures at the level of the subcutis and dermis. The epidermis was then approximated using 6.0 Fast absorbing plain gut. FINAL DIAGNOSIS: Defect following microscopically controlled excision FINAL PROCEDURE: Adjacent Tissue Transfer FLAP AREA / SIZE: 3 cm2 BLOOD LOSS: minimal OPERATIVE TIME: 30 minutes COMPLICATIONS: None NOTE: None I was present during all garcia and critical portions of this procedure and remained immediately available throughout. I performed the garcia elements of the procedure. Frederick Romero MD 07/18/2015 11:58 * Radha Arellano - 07/18/2015 0829 EST Patient Education Topic: wound care Method: Handout and Verbal Taught to: Patient Barriers: None Outcomes: independent Signature: Radha Arellano 8:30 07/18/2015 documented in this encounter Plan of Treatment Upcoming Encounters Date Type Department Care Team (Late st Contact Info) Description 03/21/2024 8:30 EDT Appointment Karin Danielle Ultrasound [address] [place] [address] 04/17/2024 10:50 EDT Appointment [facility] Endoscopy - [address] [phone] Marcellus Walsh MD [address] [facility], Level [address] [place] [phone] 05/01/2024 13:30 EDT Appointment [facility] Breast Imaging - [address] [address] 05/15/2024 15:00 EST Telemedicine [facility] Gastroenterology - [address] 247891 Madhu Park MD PhD [address] [facility], [facility] 5 [place] [phone] 12/10/2024 11:30 EDT Office Visit [facility] Surgical Oncology - [address] [phone] Magnolia Blood PA-C [address] [facility], [facility] 2 [place] [address] documented as of this encounter Visit Diagnoses Diagnosis Basal cell carcinoma of nasal tip- Primary Basal cell carcinoma of skin of other and unspecified parts of face documented in this encounter Discontinued Medications Medication Sig Discontinue Reason Start Date End Da te CALCIUM CITRATE/VITAMIN D3 (CALCIUM CITRATE + ORAL) Take by mouth daily. 04/13/2011 07/18/2015 CHASTE TREE ORAL Take by mouth daily. 07/18/2015 ERGOCALCIFEROL (VITAMIN D ORAL) Take 2 Tabs [...] Follow instructions on 'colonoscopy preparation instructions' sheet. 03/08/2011 07/18/2015 documented as of this encounter Care Teams Stores Despatch Hand Relationship Specialty Start Date End Date Indy Champion MD [address] [place] [address] PCP - General 04/15/15 documented as of this encounter
--- OUTSIDE RECORDS SUMMARY | 2024-03-20 21:37 | XMS_ITS | Encounter Summary ---
Author Organization [facility] Address [address] [place] [address] Care Team Providers Care Religious Educator Name Role Phone Joselin Champion MD Primary Care Provider Encounter Details Date Type Department Care Team (Late st Contact Info) Description 06/11/2015 Results Only [facility]- [facility] [phone] Yamilet Cordero MD [address] [place] [phone] Social History Tobacco Use Types Packs/Day Years [...] Description 03/21/2024 8:30 EDT Appointment Karin Danielle [facility] [address] [place], [place] [phone] 04/17/2024 10:50 EDT Appointment [facility] Endoscopy - [address] [phone] Marcellus Walsh MD [address] [place] [address] [address] [place] [phone] 05/01/2024 13:30 EDT Appointment [facility] Breast Imaging - [address] [phone] 05/15/2024 15:00 EST Telemedicine [facility] Gastroenterology - [address] [phone] Madhu Park MD PhD [address] [place], [place] [phone] 12/10/2024 11:30 EDT Office Visit [facility] Surgical Oncology - [address] [phone] Magnolia Blood, PA-C [address] [place] [address], [facility] 2 [place] [phone] documented as of this encounter Procedures Procedure Name Priority Date/Time Associated Diagnosis Comments SURGICAL PATHOLOGY Routine 06/11/2015 13 :49 EST documented in this encounter Results * SURGICAL PATHOLOGY (06/11/2015 13:49 EST) Pathology Report: SURGICAL PATHOLOGY REPORT Reports generated via electronic interface contain original data; however they are lacking the format of the original report. Caution should be taken when reading/interpret ing unformatted reports. Name: ? SANDHYA BARRETT ? Accession #: ? [id number] ? : ? 1960 (Age: 54) ??F ? Collect Date: ? 06/11/2015 ? Location: ? [facility] ? Receive Date: ? 06/12/2015 ? Provider: YAMILET CORDERO MD Copy to: JOSELIN CHAMPION MD ? Final Pathologic Diagnosis: SKIN OF NASAL TIP, RIGHT, SHAVE BIOPSY: - Basal cell carcinoma, nodular type. - Basal cell carcinoma present at peripheral and deep tissue edges. Microscopic Description: Irregularly shaped islands of atypical basal cells infiltrate the dermis. ??The basal cells have scant cytoplasm and round dark nuclei. ??Mitotic figures and apoptotic bodies are evident. ??The nuclei at the periphery of the islands have a palisaded arrangement. ??The islands are associated with a fibromyxoid stroma and there is cleft formation between some of the islands and stroma. ??(Dr. Jamil)/[facility] Document reviewed and electronically signed by: SANDHYA JAMIL MD Report ??Date: 06/13/2015 17:00 By the signature above, the attending physician certifies that he/she has personally conducted a gross and/or microscopic examination of the described specimens and rendered or confirmed the above diagnosis. Specimen(s) Received: Right nasal tip Clinical History: 2.0 mm pink pearly papule; DDx: basal cell carcinoma vs. angiofibroma; Mohs; clinical diagnosis code: D48.5 Gross Description: ? Received in formalin labelled with proper patient identification (initials T, D) and right nasal tip is a shave biopsy of brown skin (0.3 x 0.2 x 0.1 cm). Submitted intact in 1. Iraida Kelley 06/12/2015 3:01 PM End of Report [facility] 06/11/2015 13:4 9 EST 06/12/2015 13:49 EST Yamilet Cordero MD PATHOLOGY ORDERABLES [facility] [address] [place] [address] documented in this encounter Visit Diagnoses Not on filedocumented in this encounter Care Teams Religious Educator Relationship Specialty Start Date End Date Joselin Champion MD [address] [place] [address] PCP - General 04/15/15 documented as of this encounter
--- OUTSIDE RECORDS SUMMARY | 2024-03-20 21:37 | XMS_ITS | Encounter Summary ---
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] 793.89 OTHER ABNORMAL FINDINGS ON RADIOLOGICAL EXAMINATION BREAST[ICD-9-CM] documented in this encounter Medications at Time [...] 03/21/2024 8:30 EDT Appointment Karin Danielle Ultrasound [address] [place] [phone] 04/17/2024 10:50 EDT Appointment [facility] Endoscopy - [address] 435131 Marcellus Walsh MD [address] [phone] 05/01/2024 13:30 EDT Appointment [facility] Breast Imaging - [address] [phone] 05/15/2024 15:00 EST Telemedicine [facility] Gastroenterology - [address] [phone] Madhu Park MD PhD [address] [phone] 12/10/2024 11:30 EDT Office Visit [facility] Surgical [facility] - [facility] [address] [place], [place] 226[address] Magnolia Blood PA-C 111 [facility], Level [address] [place] [phone] documented as of this encounter Visit Diagnoses Not on filedocumented in this encounter Care Teams Spider Assembler Relationship Specialty Start Date End Date Nurys Meza MD PCP - General 05/27/11 04/14/15 documented as of this encounter
--- OUTSIDE RECORDS SUMMARY | 2024-03-20 21:37 | XMS_ITS | Encounter Summary ---
Author Organization [facility] Address [address] [place] [address] Care Team Providers Care Wedger Machine Name Role Phone Nurys Meza MD Primary Care Prov ider Unavailable Encounter Details Date Type Department Care Team (Latest Contact Info) Description 03/08/2011 Orders Only [facility] Gastroenterology - [address] [address] Jeremiah Badillo MD Special screening for malignant neoplasms, colon (Primary Dx) Social History Tobacco Use Types Packs/Day Years Used Date Smoking Tobacco: Never Alcohol Use Standard Drinks/Week Comments Yes 8.3 (1 standard drink = 0.6 oz p ure alcohol) Sex and Gender Information Value Date Recorded Sex Assigned at Not on file Gender Identity Female 05/16/2019 10:23 EST Sexual Orientation Not on file documented as of this encounter Ordered Prescriptions Prescription Sig Dispensed Refills Start Date End Da te polyethylene glycol (GOLYTELY) 236-22.74-6.74 gram suspensionIndications: Special screening for malignant neoplasms, colon Take 4,000 mL by mouth. Follow instructions on 'colonoscopy preparation instructions' sheet. 1 Bottle 0 03/08/2011 07/18/2015 documented in this encounter Plan of Treatment Upcoming Encounters Date Type Department Care Team (Late st Contact Info) Description 03/21/2024 8:30 EDT Appointment Karin Saul [address] [place], [place] [phone] 04/17/2024 10:50 EDT Appointment [facility] Endoscopy [address] [address] Marcellus Walsh MD 111 [facility] 5 [place] [phone] 05/01/2024 13:30 EDT Appointment [facility] Breast Imaging - [address] [phone] 05/15/2024 15:00 EST Telemedicine [facility] Gastroenterology - [address] [phone] Madhu Park MD PhD [address] [place] [address] 5 [place] [phone] 12/10/2024 11:30 EDT Office Visit [facility] Surgical Oncology - [address] [phone] [facility] Blood PAPrabhaC [address] [place] [address], [facility] 2 [place] [phone] documented as of this encounter Visit Diagnoses Diagnosis Special screening for malignant neoplasms, colon- Primary documented in this encounter Care Teams Wedger Machine Relationship Specialty Start Date End Date Nurys Meza MD PCP - General 12/23/10 03/09/11 documented as of this encounter
--- OUTSIDE RECORDS SUMMARY | 2024-03-20 21:37 | XMS_ITS | Encounter Summary ---
Author Organization [facility] Address [address] [place] [address] Care Team Providers Care Manager Data Name Role Phone Indy Champion MD Primary Care Provider Reason for Visit * Reason Comments Follow-up S/p Mohs of BCC on t he right nasal tip with bilobed flap 07/18/15. Encounter Details Date Type Department Care Team (Late st Contact Info) Description 03/10/2016 13:45 EDT Office Visit [facility] Dermatology 3[address] [address] Frederick Romero MD [address] [place] [address], [address] [place] [phone] Status post Mohs surgery for basal cell carcinoma (Primary Dx) Social History Tobacco Use Types [...] as of this encounter Discharge Diagnoses Diagnosis R21 Rash and other nonspecific skin eruption-R21[ICD-10-CM] documented in this encounter Patient Instructions * Patient Instructions* Frederick Romero MD - 03/10/2016 14:07 EDT - Recommend daily supplementation with 600 international units of Vitamin D3. documented in this encounter Progress Notes * Frederick Romero MD - 03/10/2016 1358 EDT Mohs Follow Up Note Chief Complaint Patient presents with ??? Follow-up S/p Mohs of BCC on the right nasal tip with bilobed flap 07/18/15. SUBJECTIVE Sandhya is approximately 7 months status post Mohs surgery as noted above and she returns today forfollow up. She has no concerns about the surgical site and notes that it has healed up nicely. She denies a history of new or changing skin lesions and has no other concerns in regards to her skin. For full Medical, Surgical, Family, and Social histories as well as Review of Systems, Medications and Allergies please see those sections of this encounter in the electronic chart which I have personally reviewed. OBJECTIVE The patient is a alert, healthy and not in distress appearing 55 y.o.-year-old female sitting on the examination table. A focused cutaneous examination of the scalp, face, ears and neck is performed. There is a well healed, soft supple bilobed flap with minimal surrounding neovascularization on the right nose without nodularity, ulceration or other concerning signs of recurrence. Palpation of the preauricular, postauricular, parotid, submental, submandibular, occipital and cervical lymph nodes is unremarkable. There are no cutaneous lesions worrisome for malignancy. ASSESSMENT/PLAN 1. History of BCC of the right nose. Patient is well healed with no evidence of recurrence following Mohs surgery and bilobed flap repair. - Continue aggressive sun protection, wearing clothing, a wide-brimmed hat and high SPF sunscreen on areas that can't be covered. Regular skin surveillance with intermittent self skin exams recommended, watching for any new or changing skin lesions or ugly ducklings. - Vitamin D supplementation encouraged for health maintenance particularly in the winter and while practicing good photoprotection techniques. - Follow up as needed. Frederick Romero MD 03/10/2016 13:58 * Radha Arellano - 03/10/2016 5268 EDT Review of Systems Constitutional: Negative for fatigue, fever and unexpected weight change. HENT: Negative for mouth sores. Eyes: Negative for pain. Respiratory: Negative for cough and shortness of breath. Cardiovascular: Negative for chest pain and palpitations. Gastrointestinal: Negative for abdominal pain, blood in stool, constipation, diarrhea, nausea and vomiting. Genitourinary: Negative for dysuria, frequency and hematuria. Musculoskeletal: Negative for myalgias, joint swelling, arthralgias and muscle stiffness in the morning. Skin: Negative for rash. Neurological: Negative for numbness and headaches. Endo/Heme/Allergies: Does not bruise/bleed easily. Psychiatric/Behavioral: Negative for sleep disturbance. The patient is not nervous/anxious. Radha Arellano [facility] Dermatology 13:48 03/10/2016 documented in this encounter Plan of Treatment Upcoming Encounters Date Type Department Care Team (Late st Contact Info) Description 03/21/2024 8:30 EDT Appointment Karin Danielle Ultrasound [address] [place] [address] 04/17/2024 10:50 EDT Appointment [facility] Endoscopy - [address] [phone] Marcellus Walsh MD 111 [facility], Level 5 [place] [phone] 05/01/2024 13:30 EDT Appointment [facility] Breast Imaging - [address] [address] 05/15/2024 15:00 EST Telemedicine [facility] Gastroenterology - [address] [phone] Madhu Park MD PhD [address] [place] [address], [facility] 5 [place] [phone] 12/10/2024 11:30 EDT Office Visit [facility] Surgical Oncology - [address] [phone] [facility] Blood PAPrabhaC 111 [facility], [facility] 2 [place] [phone] documented as of this encounter Visit Diagnoses Diagnosis Status post Mohs surgery for basal cell carcinoma- Primary Other postprocedural status documented in this encounter Care Teams Manager Data Relationship Specialty Start Date End Date Indy Champion MD [address] [place] [address] PCP - General 04/15/15 documented as of this encounter
--- OUTSIDE RECORDS SUMMARY | 2024-03-20 21:37 | XMS_ITS | Encounter Summary ---
Author Organization [facility] Address [address] [place] [address] Care Team Providers Care Log Getter Name Role Phone Indy Champion MD Primary Care Provider Reason for Referral * Radiology Services (Routine) - Closed Specialty Diagnoses / Procedures [facility] Referred To Contact Diagnoses Diffuse cystic mastopathy of right breast Diffuse cystic mastopathy of left breast Procedures RAD US BREAST SCREENING ONLY BILATERAL Indy Stein PA-C [address] [place] [phone] Referral ID Status Reason Start Date Expiration Date Visits Re quested Visits Authorized [id number] Closed 04/21/2016 1 1 Reason for Visit * Reason Onset Date Comments Follow-up 04/21/2016 ULTRASOUND ORDER Encounter Details Date Type Department Care Team (Late st Contact Info) Description 04/21/2016 Orders Only [facility] Surgical Oncology - [address] [phone] Indy Stein PA-C [address] [place] [phone] Diffuse cystic mastopathy of right breast [...] 8:30 EDT Appointment Karin Danielle Ultrasound 0 [place] [address] 04/17/2024 10:50 EDT Appointment [facility] Endoscopy - [address] [address] Marcellus Walsh MD [address] [place] [phone] 05/01/2024 13:30 EDT Appointment [facility] Breast Imaging - [address] [phone] 05/15/2024 15:00 EST Telemedicine [facility] Gastroenterology - [address] [phone] Madhu Park MD PhD [address] [place] [phone] 12/10/2024 11:30 EDT Office Visit [facility] Surgical Oncology - [address] [phone] Magnolia Blood, PAPrabhaC 111 [facility], Level [address] [place] [phone] documented as of this encounter Procedures Procedure Name Priority Date/Time Associated Diagnosis Comments RAD US BREAST SCREENING ONLY BILATERAL Routine 11/03/2016 9:21 EDT Diffuse cystic mastopathy of right breast Diffuse cystic mastopathy of left breast documented in this encounter Results * RAD US BREAST SCREENING ONLY BILATERAL (11/03/2016 9:21 EDT) Anatomical Region Laterality Modality Other 11/03/2016 9:21 EDT 11/03/2016 10:06 EDT Narrative 11/03/2016 10:06 EDT RAD US BREAST SCREENING ONLY BILATERAL ??11/03/2016 9:21 AM Signs and Symptoms/Comments: N60.11-Diffuse cystic mastopathy of right roiuvv-YAC-04 N60.12-Diffuse cystic mastopathy of left pnfcrd-ZUU-56; High risk, diffuse cystic mastopathy, dense breast, multiple nodularity both breast, screening Comparison: Screening mammography most recently performed April 2016 and prior screening breast ultrasounds in 2015 and 2014. Right breast findings: Sonography of the entire right breast was performed; including all four quadrants and the retroareolar region. There are multiple stable oval masses within the right breast and a few benign cysts. There are no concerning findings there is no significant interval change. Left breast findings: Sonography of the entire left breast was performed; including all four quadrants and the retroareolar region. A benign cyst is present at 4 o'clock, 6 cm from the nipple. At 10 o'clock, 6 cm from the nipple, there is an oval circumscribed heterogeneous mass with solid and cystic regions. This finding demonstrates increased flow within the solid regions on Doppler evaluation. It currently measures 14 x 4 x 14 mm and appears to have increased in size since prior studies. This finding is viewed with moderate concern. Impression right breast: BI-RADS Category 2, benign. Impression left breast: BI-RADS Category 4B, moderate suspicion. Recommendation: Ultrasound-guided core biopsy is recommended for the indeterminate mass in the left breast at 10 o'clock, 6 cm from the nipple. Results and recommendations were discussed with the patient by the radiologist at the time of the exam. The patient was scheduled for an ultrasound-guided core biopsy to follow the diagnostic evaluation. Please see separate biopsy report. Overall assessment: BI-RADS Category Assessment 4: Suspicious. These results will be communicated to your patient via a lay letter from Radiology. Portions of this document may have been prepared with speech recognition software or keyboard data collection interviewer techniques. Minor irregularities or keyboarding misprints may be present. Procedure Note Carissa Kendall MD - 11/03/2016 RAD US BREAST SCREENING ONLY BILATERAL 11/03/2016 9:21 AM Signs and Symptoms/Comments: N60.11-Diffuse cystic mastopathy of right sdaomt-ERJ-54 N60.12-Diffuse cystic mastopathy of left wqhyeb-HFE-87; High risk, diffuse cystic mastopathy, dense breast, multiple nodularity both breast, screening Comparison: Screening mammography most recently performed April 2016 and prior screening breast ultrasounds in 2015 and 2014. Right breast findings: Sonography of the entire right breast was performed; including all four quadrants and the retroareolar region. There are multiple stable oval masses within the right breast and a few benign cysts. There are no concerning findings there is no significant interval change. Left breast findings: Sonography of the entire left breast was performed; including all four quadrants and the retroareolar region. A benign cyst is present at 4 o'clock, 6 cm from the nipple. At 10 o'clock, 6 cm from the nipple, there is an oval circumscribed heterogeneous mass with solid and cystic regions. This finding demonstrates increased flow within the solid regions on Doppler evaluation. It currently measures 14 x 4 x 14 mm and appears to have increased in size since prior studies. This finding is viewed with moderate concern. Impression right breast: BI-RADS Category 2, benign. Impression left breast: BI-RADS Category 4B, moderate suspicion. Recommendation: Ultrasound-guided core biopsy is recommended for the indeterminate mass in the left breast at 10 o'clock, 6 cm from the nipple. Results and recommendations were discussed with the patient by the radiologist at the time of the exam. The patient was scheduled for an ultrasound-guided core biopsy to follow the diagnostic evaluation. Please see separate biopsy report. Overall assessment: BI-RADS Category Assessment 4: Suspicious. These results will be communicated to your patient via a lay letter from Radiology. Portions of this document may have been prepared with speech recognition software or keyboard data collection interviewer techniques. Minor irregularities or keyboarding misprints may be present. Indy Stein PA-C IMG US ORDERABL ES documented in this encounter Visit Diagnoses Diagnosis Diffuse cystic mastopathy of right breast- Primary Diffuse cystic mastopathy Diffuse cystic mastopathy of left breast Diffuse cystic mastopathy documented in this encounter Care Teams Log Getter Relationship Specialty Start Date End Date Indy Champion MD [address] [place] [address] PCP - General 04/15/15 documented as of this encounter
--- OUTSIDE RECORDS SUMMARY | 2024-03-20 21:37 | XMS_ITS | Encounter Summary ---
Author Organization [facility] Address [address] [place] [address] Care Team Providers Care Cluster Bore Operator Name Role Phone None, Provider Primary Care Provider Steve Meza, Nurys Andrew MD Primary Care Prov ider Unavailable Reason for Visit * Reason Onset Date Comments Other 12/21/2010 Patient had surg albert & wants to inquire for any update/result. Encounter Details Date Type Department Care Team (Late st Contact Info) Description 12/21/2010 Telephone [facility] Dermatology 5th Floor [facility] [address] [place], [place] [phone] Daija Reddy PA-C 111 [facility], Level [address] [place] [phone] Other (Patient had surgery & wants to inquire for any update/result.) Social History Tobacco Use Types Packs/Day Years [...] * Telephone Encounter - Regina Waldrop - 12/21/2010 1806 EDT Called patient will pathology results. * Telephone Encounter - Binta De La Cruz - 12/21/2010 1559 EDT Pls leave a message of the result if call is not answered. * Telephone Encounter - Regina Waldrop - 12/21/2010 1452 EDT Returned patients phone call, Left message for her to call back. documented in this encounter Plan of Treatment Upcoming Encounters Date Type Department Care Team (Late st Contact Info) Description 03/21/2024 8:30 EDT Appointment Karin Danielle Ultrasound [address] [place] [phone] 04/17/2024 10:50 EDT Appointment [facility] Endoscopy - [address] [phone] Marcellus Walsh MD [address] [place] [address] 5 [place] [phone] 05/01/2024 13:30 EDT Appointment [facility] Breast Imaging - [address] [phone] 05/15/2024 15:00 EST Telemedicine [facility] Gastroenterology - [address] 527391 Madhu Park MD PhD [address] [place] [address], [facility] 5 [place] [phone] 12/10/2024 11:30 EDT Office Visit [facility] Surgical Oncology - [address] 184671 Magnolia Blood PA-C [address] [place] [address], Level [address] [place] [phone] documented as of this encounter Visit Diagnoses Not on filedocumented in this encounter Care Teams Cluster Bore Operator Relationship Specialty Start Date End Date None, Provider PCP - General 07/09/10 12/22/10 Nurys Meza MD PCP - General 12/23/10 03/09/11 documented as of this encounter
--- OUTSIDE RECORDS SUMMARY | 2024-03-20 21:37 | XMS_ITS | Encounter Summary ---
Author Organization [facility] Address [address] [place] [address] Care Team Providers Care Executive Kitchen Manager Name Role Phone Nurys Meza MD Primary Care Prov ider Unavailable Reason for Visit * Reason Onset Date Comments Follow-up 04/12/2012 ULTRASOUND ORDER Encounter Details Date Type Department Care Team (Late st Contact Info) Description 04/12/2012 Orders Only [facility] Surgical Oncology - [address] [phone] Anuel Clements ANP Diffuse cystic mastopathy (Primary Dx) Social [...] 8:30 EDT Appointment [facility] [address] [place] [address] 04/17/2024 10:50 EDT Appointment [facility] Endoscopy - [facility] [address] [place], [place] [phone] Marcellus Walsh MD 111 [facility], Level 5 [place] [phone] 05/01/2024 13:30 EDT Appointment [facility] Breast Imaging - [facility] [address] [place], [place] [address] 05/15/2024 15:00 EST Telemedicine [facility] Gastroenterology - [address] [phone] Madhu Park MD PhD 111 [facility], Level 5 [place] [phone] 12/10/2024 11:30 EDT Office Visit [facility] Surgical Oncology - [address] [address] Magnolia Blood PA-C [address] [place] [address], Level 2 [place] [phone] documented as of this encounter Procedures Procedure Name Priority Date/Time Associated Diagnosis Comments RAD US BREAST SCREENING ONLY 10/04/2012 9:28 EDT documented in this encounter Results * US BREAST SCREEN (10/04/2012 9:28 EDT) Anatomical Region Laterality Modality Other 10/04/2012 9:28 EDT 10/04/2012 10:02 EDT Narrative 10/04/2012 10:02 EDT US BREAST SCREEN Oct 04, 2012 09:28:00 AM Signs and Symptoms/Comments: ??610.1-DIFFUSE CYSTIC DJMOOSCYOG-ARR-0-CM; DENSE BREAST,MULTIPLE NODULARITY BOTH BREASTS Comparison: Ultrasound 09/30/2011 and 11/17/2009. Findings: Both breasts: Ultrasound of both entire breasts and axillary regions was performed. Similar to the prior studies, there are multiple bilateral scattered cysts, probable fibrocystic nodules and prominent ducts. No suspicious masses or [...] were discussed with the patient by the isotope technologist. Procedure Note 10/04/2012 US BREAST SCREEN Oct 04, 2012 09:28:00 AM Signs and Symptoms/Comments: 610.1-DIFFUSE CYSTIC OEGOFTHHIX-EMM-0-CM; DENSE BREAST,MULTIPLE NODULARITY BOTH BREASTS Comparison: Ultrasound 09/30/2011 and 11/17/2009. Findings: Both breasts: Ultrasound of both entire breasts and axillary regions was performed. Similar to the prior studies, there are multiple bilateral scattered cysts, probable fibrocystic nodules and prominent ducts. No suspicious masses or [...] were discussed with the patient by the isotope technologist. Anuel ARMSTRONG IMG US ORDERABLES documented in this encounter Visit Diagnoses Diagnosis Diffuse cystic mastopathy- Primary documented in this encounter Care Teams Executive Kitchen Manager Relationship Specialty Start Date End Date Nurys Meza MD PCP - General 05/27/11 04/14/15 documented as of this encounter
--- OUTSIDE RECORDS SUMMARY | 2024-03-20 21:37 | XMS_ITS | Encounter Summary ---
Author Organization [facility] Address [address] [place] [address] Care Team Providers Care Fleet Coordinator Name Role Phone Nurys Meza MD Primary Care Prov ider Unavailable Encounter Details Date Type Department Care Team (Latest Contact Info) Description 04/23/2014 9:21 EDT - 04/23/2014 23:59 EDT Hospital Encounter [facility] [address] [place] [address] Nurys Meza MD Discharge Disposition: Auto Discharge [...] as of this encounter Discharge Diagnoses Diagnosis V76.11 SCREENING MAMMOGRAM FOR HIGH-RISK PATIENT, MALIGNANT NEOPLASM OF BREAST[ICD-9-CM] V15.89 PERS HX HEALTH HAZARDS NEC[ICD-9-CM] documented in this encounter Medications at [...] 8:30 EDT Appointment [facility] Ultrasound [address] [place] [address] 04/17/2024 10:50 EDT Appointment [facility] Endoscopy - [facility] [address] [place], [place] [address] Marcellus Walsh MD [address] [phone] 05/01/2024 13:30 EDT Appointment [facility] Breast Imaging - [address] [phone] 05/15/2024 15:00 EST Telemedicine [facility] Gastroenterology - [address] [address] Madhu Park MD PhD [address] [phone] 12/10/2024 11:30 EDT Office Visit [facility] Surgical Oncology - [facility] [address] [place], [place] [phone] [facility] Blood PA-C 111 [facility], [facility], Level 2 [place] [address] documented as of this encounter Procedures Procedure Name Priority Date/Time Associated Diagnosis Comments MA 2D/3D BILATERAL CINDY ROUTINE SCREENING MAMMO 04/15/2015 8:09 EDT RAD US BREAST SCREENING ONLY BILATERAL 10/10/2014 9:25 EDT documented in this encounter Results * MA 2D/3D BILATERAL CINDY ROUTINE SCREENING MAMMO (04/15/2015 8:09 EDT) Anatomical Region Laterality Modality Other 04/15/2015 8:09 EDT 04/17/2015 12:56 EDT Narrative 04/17/2015 12:56 EDT Comparison has been made to previous [...] will contact your patient directly. Procedure Note Samreen Ennis MD - 04/17/2015 Comparison has been made to previous images. [...] directly. Indy Stein PA-C [facility] MAMMOGRAPHY ORDERABLES * RAD US BREAST SCREENING ONLY BILATERAL (10/10/2014 9:25 EDT) Anatomical Region Laterality Modality Other 10/10/2014 9:25 EDT 10/10/2014 10:15 EDT Narrative 10/10/2014 10:15 EDT RAD US BREAST SCREENING ONLY BILATERAL ??10/10/2014 9:25 AM Signs and Symptoms/Comments: ?? 610.1-Diffuse cystic quafajdfpt-SVV-4-CM 793.82-Inconclusive qfdbxajgm-GSD-0-CM; high risk, diffuse cystic mastopathy, dense breast, multiple nodularity both breast Comparison: Prior ultrasound, 05/24/14, 12/04/2012 and most recent mammogram 04/23/14 as well as multiple previous mammograms Bilateral Breast Findings: Both breasts and axillary regions were scanned. There is bilateral ductal ectasia. Several dilated ducts are filled with debris without color flow to suggest an underlying papilloma or intraductal lesion. The appearance is stable. Scattered benign cysts and fibrocystic nodules are stable. No suspicious lesion is identified. Impression: Bilateral breast: BI-RADS Category Assessment 2: Benign Findings. Results and recommendations were discussed with the patient by the proposal director at the time of the exam. The patient will be notified of her breast imaging results via a lay letter from radiology. Radiology will contact the patient directly regarding any findings which require additional imaging (Category 0) at this time. Recommend continued yearly screening mammography, due in April 2015. Overall assessment: BI-RADS Category Assessment 2: Benign Findings. ?? I have personally reviewed the images and the above interpretation and agree with the findings. Procedure Note Rosario Fuentes MD - 10/10/2014 RAD US BREAST SCREENING ONLY BILATERAL 10/10/2014 9:25 AM Signs and Symptoms/Comments: 610.1-Diffuse cystic rojpfuqbit-GLN-0-CM 793.82-Inconclusive nhxexeanq-JEZ-5-CM; high risk, diffuse cystic mastopathy, dense breast, multiple nodularity both breast Comparison: Prior ultrasound, 05/24/14, 12/04/2012 and most recent mammogram 04/23/14 as well as multiple previous mammograms Bilateral Breast Findings: Both breasts and axillary regions were scanned. There is bilateral ductal ectasia. Several dilated ducts are filled with debris without color flow to suggest an underlying papilloma or intraductal lesion. The appearance is stable. Scattered benign cysts and fibrocystic nodules are stable. No suspicious lesion is identified. Impression: Bilateral breast: BI-RADS Category Assessment 2: Benign Findings. Results and recommendations were discussed with the patient by the proposal director at the time of the exam. The patient will be notified of her breast imaging results via a lay letter from radiology. Radiology will contact the patient directly regarding any findings which require additional imaging (Category 0) at this time. Recommend continued yearly screening mammography, due in April 2015. Overall assessment: BI-RADS Category Assessment 2: Benign Findings. I have personally reviewed the images and the above interpretation and agree with the findings. Indy Stein PA-C [facility] US ORDERABL ES documented in this encounter Visit Diagnoses Not on filedocumented in this encounter Care Teams Fleet Coordinator Relationship Specialty Start Date End Date Nurys Meza MD PCP - General 05/27/11 04/14/15 documented as of this encounter
--- OUTSIDE RECORDS SUMMARY | 2024-03-20 21:37 | XMS_ITS | Encounter Summary ---
Author Organization [facility] Address [address] [place] [address] Care Team Providers Care Forming Department Supervisor Name Role Phone Indy Champion MD Primary Care Provider Encounter Details Date Type Department Care Team (Latest Contact Info) Description 06/11/2015 16:14 EST - 06/11/2015 16:15 [facility] Hospital Encounter [address] [address] Peri Cordero MD [address] [place] [address] [address] [place] [phone] Discharge Disposition: Home or Self Care Social [...] as of this encounter Discharge Diagnoses Diagnosis D48.5 Neoplasm of uncertain behavior of skin-D48.5[ICD-10-CM] documented in this encounter Medications at Time [...] 8:30 EDT Appointment [facility] Ultrasound [address] [place] [address] 04/17/2024 10:[address] [facility] Endoscopy - [address] [address] Marcellus Walsh MD 111 [facility], Level 5 [place] [phone] 05/01/2024 13:[address] [facility] Breast Imaging - [address] [phone] 05/15/2024 15:[address] [facility] Gastroenterology - [address] [phone] Madhu Park MD PhD [address] [place] [address], [facility] 5 [place] [phone] 12/10/2024 11:[address] [facility] Surgical Oncology - [address] [phone] Magnolia Blood PA-C [address] [place] [address], [address] [place] [phone] documented as of this encounter Visit Diagnoses Not on filedocumented in this encounter Care Teams Forming Department Supervisor Relationship Specialty Start Date End Date Indy Champion MD [address] [place], [place] [phone] PCP - General 04/15/15 documented as of this encounter
--- OUTSIDE RECORDS SUMMARY | 2024-03-20 21:37 | XMS_ITS | Encounter Summary ---
Author Organization [facility] Address [address] [place] [address] Care Team Providers Care Bag Machine Set Up Operator Name Role Phone None, Provider Primary Care Provider Unavailabl e Reason for Visit * Reason Comments Follow-up Encounter Details Date Type Department Care Team (Late st Contact Info) Description 04/13/2011 9:30 EDT Office Visit [facility] Surgical Oncology - [facility] [address] [place] [address] Mary Jo Dyson, SLEEP LAB TECHNICIAN [address] [place] [phone] Dense breasts; Diffuse cystic mastopathy Discharge Disposition: Auto Discharge Social History Tobacco [...] - Inhaled Oxygen Concentration - - Weight 57.6 kg (127 lb) 04/13/2011 0935 EDT Height 165.1 cm (5' 5) 04/13/2011 0935 EDT Body Mass Index 21.13 04/13/2011 0935 EDT documented in this encounter Discharge Disposition Disposition Code Departure Means Destination Auto Discharge documented in this encounter Progress Notes * Michael Fajardo MD - 04/13/2011 1225 EDT I was available for consultation on this patient. * Mary Jo Dyson - 04/13/2011 1137 EDT DIVISION OF SURGICAL ONCOLOGY - [facility] FOLLOW-UP/PROGRESS NOTE - 04/13/2011 PROBLEM: Breast density and fibrocystic breast changes. SUBJECTIVE: Sandhya Lomas is a 50 y.o. old female who is here today for annual screening breast exam. Sandhya established care in the [facility] due to breast nodularity, dense breast tissue and a difficult clinical breast exam. She denies any family history of breast cancer. Screening has included yearly mammograms alternating with screening ultrasounds. Sandhya has not had a breast biopsy in the past. She does not perform regular self breast exams because her exam is so difficult and she always notices lumps. She has not, however, noticed any new areas of concern, and denies any changes in breast skin or nipple discharge. Sandhya's weight has been stable and she is moderately active walking, running, hiking and doing yoga. REVIEW OF SYSTEMS: No new systemic complaints. A comprehensive review of systems was negative. Past Medical History Diagnosis Date ??? Diffuse cystic mastopathy 12/01/2009 ??? Varicella ??? Basal cell carcinoma ??? BCC (basal cell carcinoma), leg 12/11/2010 right vázquez ??? Anemia resolved Iron deficiency anemia winter 2008 ??? Complication of anesthesia difficulty waking from general anesthesia ??? S/P colonoscopy 03/2011 Norm. 10 yr f/u Past Surgical History Procedure Date ??? Mohs surgery 11/2009 basal cell carcinoma, right taoism ??? section 1995, 1997 ??? Abdomen surgery 1988 dermoid cyst Current outpatient prescriptions Medication Sig Dispense Refill ??? CALCIUM CITRATE/VITAMIN D3 (CALCIUM CITRATE + [...] Tabs by mouth daily. No Known Allergies PRODUCTION ADMINISTRATIVE ASSISTANT History: 2, para 2. Menarche at age 14. First delivery at age 36. Her periods have recently begun to become more irregular, and she thinks she is perimenopausal. Family History Problem Relation Age of Onset ??? Cancer Mother 68 lung ??? Diabetes Father ??? Cancer Maternal Aunt 58 lung ??? Cancer Maternal Uncle 60 lung ??? Rheumatologic Disease Paternal Grandmother lupus Social History: Sandhya is and lives in [place]. She has two sons, ages 13 and 15. OBJECTIVE: Ht 165.1 cm (65) Wt 57.607 kg (127 lb) BMI 21.13 kg/m2 Constitutional: The patient is a 50 y.o. female in no acute distress. Sclerae: [...] no organomegaly. IMAGING: A mammogram was done a few weeks ago and result was normal but with extremely dense breasttissue--routine follow-up in 12 months Other Imaging: breast ultrasound done 09/2010 was benign, category 2. ASSESSMENT: A 50 y.o. female with a history of extremely dense breast tissue, and breast nodularity. Clinically stable breast exam, and no evidence of abnormality on breast imaging. PLAN: 1. Sandhya will be scheduled for her next mammogram in one year. Her screening ultrasound is already scheduled for September 2011. 2. She will return to clinic in one year for her next breast exam. 3. She is also encouraged to perform self-breast exams and return to clinic sooner if has any changes or concerns. Mary Jo Dyson, AYALA 04/13/2011 11:21 An attending was available for consultation at the time of the patient's visit. documented in this encounter Plan of Treatment Upcoming Encounters Date Type Department Care Team (Late st Contact Info) Description 03/21/2024 8:30 EDT Appointment Karin Danielle Ultrasound [address] [place] [address] 04/17/2024 10:50 EDT Appointment [facility] Endoscopy - [address] [phone] Marcellus Walsh MD [address] [place] [phone] 05/01/2024 13:30 EDT Appointment [facility] Breast Imaging - [address] [phone] 05/15/2024 15:00 EST Telemedicine [facility] Gastroenterology - [address] [phone] Madhu Park MD PhD [address] [place] [phone] 12/10/2024 11:30 EDT Office Visit [facility] Surgical Oncology - [address] [phone] [facility] Blood PA-C [address] [place] [address], [facility] 2 [place] [phone] documented as of this encounter Visit Diagnoses Diagnosis Dense breasts Inconclusive mammogram Diffuse cystic mastopathy documented in this encounter Historical Medications * This list may reflect changes made after this encounter. Medication Sig Dispensed Refills Start Date End Date CALCIUM CITRATE/VITAMIN D3 (CALCIUM CITRATE + ORAL) Take by mouth daily. 04/13/2011 016 added in this encounter Care Teams Bag Machine Set Up Operator Relationship Specialty Start Date End Date None, Provider PCP - General 03/10/11 05/26/11 documented as of this encounter
--- OUTSIDE RECORDS SUMMARY | 2024-03-20 21:38 | XMS_ITS | Encounter Summary ---
Author Organization [facility] Address [address] [place] [address] Care Team Providers Care Adjunct Instructor Name Role Phone Unavailable Primary Care Provider Unavailabl e Encounter Details Date Type Department Care Team (Latest Contact Info) Description 12/13/2006 8:35 EDT - 12/13/2006 11:59 EDT Hospital Encounter [facility] - [address] [address] Nicki Dover MD Discharge Disposition: Auto Discharge Social History Tobacco Use Types Packs/Day Years Used Date Smoking Tobacco: Never Assessed Sex and Gender Information Value Date Recorded Sex Assigned at Not on file Gender Identity Female 05/16/2019 10:23 EST Sexual Orientation Not on file documented as of this encounter Discharge Disposition Disposition Code Departure Means Destination Auto Discharge documented in this encounter Plan of Treatment Upcoming Encounters Date Type Department Care Team (Late st Contact Info) Description 03/21/2024 8:30 EDT Appointment [facility] Danielle Ultrasound [address] [place] [address] 04/17/2024 10:50 EDT Appointment [facility] Endoscopy - [facility] [address] [place] [address] Marcellus Walsh MD 111 [facility], Level [address] [place] [phone] 05/01/2024 13:30 EDT Appointment [facility] Breast Imaging - [address] [address] 05/15/2024 15:00 EST Telemedicine [facility] Gastroenterology - [address] [phone] Madhu Park MD PhD 111 [facility], Level [address] [place] [phone] 12/10/2024 11:30 EDT Office Visit [facility] Surgical Oncology - [address] [phone] Magnolia Blood PA-C 111 [facility], [facility] 2 [place] [phone] documented as of this encounter Procedures Procedure Name Priority Date/Time Associated Diagnosis Comments MA MAMMO SCREENING DIGITAL 12/13/2006 8:57 EDT documented in this encounter Results * MA MAMMO SCREENING DIGITAL (12/13/2006 8:57 EDT) Anatomical Region Laterality Modality Other 12/13/2006 8:57 EDT Narrative 01/08/2009 10:52 EDT ROUTINE Comparison is made to films from 11/16/2005 (bilateral) and films from 09/10/2004 and films from 09/02/2003. Bilateral Breast Findings: (CAD used to interpret routine digital): The breasts are extremely dense which could obscure a lesion on mammography. No significant masses, calcifications or other abnormalities are seen. IMPRESSION: BILATERAL BREASTS - CATEGORY 1 Negative, no evidence of malignancy. Normal interval follow-up is recommended in 12 months. OVERALL ASSESSMENT - NEGATIVE END OF IMPRESSION The patient will be notified of her/his breast imaging results via a lay letter from Radiology. ??Radiology will contact the patient directly regarding any findings which require additional imaging (Category 0) at this time. I have personally reviewed the images and the above interpretation and agree with the findings. Procedure Note Gianni Chong MD / Carissa Kendall MD - 01/08/2009 ROUTINE Comparison is made to films from 11/16/2005 (bilateral) and films from 09/10/2004 and films from 09/02/2003. Bilateral Breast Findings: (CAD used to interpret routine digital): The breasts are extremely dense which could obscure a lesion on mammography. No significant masses, calcifications or other abnormalities are seen. IMPRESSION: BILATERAL BREASTS - CATEGORY 1 Negative, no evidence of malignancy. Normal interval follow-up is recommended in 12 months. OVERALL ASSESSMENT - NEGATIVE END OF IMPRESSION The patient will be notified of her/his breast imaging results via a lay letter from Radiology. Radiology will contact the patient directly regarding any findings which require additional imaging (Category 0) at this time. I have personally reviewed the images and the above interpretation and agree with the findings. Clarice Murcia MD IMG MAMMOGRAPHY ANITA RIVERA documented in this encounter Visit Diagnoses Not on filedocumented in this encounter
--- OUTSIDE RECORDS SUMMARY | 2024-03-20 21:38 | XMS_ITS | Encounter Summary ---
Author Organization [facility] Address [address] [place] [address] Care Team Providers Care Patternmaker Plaster Name Role Phone None, Provider Primary Care Provider Unavailabl e Encounter Details Date Type Department Care Team (Late st Contact Info) Description 07/15/2010 Results Only Imaging [facility] Surgical Oncology - [address] [phone] Josh Daniels MD MSc [address] [place] [phone] Social History Tobacco Use Types Packs/Day Years [...] 8:30 EDT Appointment [facility] Danielle Ultrasound [address] [place] [address] 04/17/2024 10:50 EDT Appointment [facility] Endoscopy - [facility] [address] [place], [place] [phone] Marcellus Walsh MD 111 [facility], Level 5 [place] [phone] 05/01/2024 13:30 EDT Appointment [facility] Breast Imaging - [facility] [address] [place], [place] [phone] 05/15/2024 15:00 EST Telemedicine [facility] Gastroenterology - [address] [phone] Madhu Park MD PhD [address] [place] [address], [address] [place] [phone] 12/10/2024 11:30 EDT Office Visit [facility] Surgical Oncology - [address] [phone] [facility] Blood, PA-C [address] [place] [address], Level [address] [place] [phone] documented as of this encounter Visit Diagnoses Not on filedocumented in this encounter Care Teams Patternmaker Plaster Relationship Specialty Start Date End Date None, Provider PCP - General 07/09/10 12/22/10 documented as of this encounter
--- OUTSIDE RECORDS SUMMARY | 2024-03-20 21:38 | XMS_ITS | Encounter Summary ---
Author Organization [facility] Address [address] [place] [address] Care Team Providers Care Pediatric Dietician Name Role Phone Unknown, Provider Primary Care Provider [phone] Encounter Details Date Type Department Care Team (Late st Contact Info) Description 12/15/2009 Results Only [facility] Laboratory Services - [facility] ([facility]) [address] [place] [address] Ingrid Casillas MD [address] [place] [phone] Social History Tobacco Use Types Packs/Day Years Used Date Smoking Tobacco: Never Assessed Sex and Gender Information Value Date Recorded Sex Assigned at Not on file Gender Identity Female 05/16/2019 10:23 EST Sexual Orientation Not on file documented as of this encounter Plan of Treatment Upcoming Encounters Date Type Department Care Team (Late st Contact Info) Description 03/21/2024 8:30 EDT Appointment [facility] Ultrasound [address] [place], [place] [address] 04/17/2024 10:50 EDT Appointment [facility] Endoscopy - [facility] [address] [place], [place] [address] Marcellus Walsh MD [address] [facility], Level 5 [place] [phone] 05/01/2024 13:30 EDT Appointment [facility] Breast Imaging - [facility] [address] [place] 1 [place], [place] [address] 05/15/2024 15:00 EST Telemedicine [facility] Gastroenterology - [address] [phone] Madhu Park MD PhD [address] [facility], Level 5 [place] [phone] 12/10/2024 11:30 EDT Office Visit [facility] Surgical Oncology - [address] [phone] Magnolia Blood PA-C [address] [facility], [facility] 2 [place] [phone] documented as of this encounter Procedures Procedure Name Priority Date/Time Associated Diagnosis Comments HPV DETECTION, HIGH RISK TYPES Routine 12/15/2009 8:49 EDT CYTOPATHOLOGY Routine 12/15/2009 0:00 EDT documented in this encounter Results * HUMAN PAPILLOMA VIRUS DNA TEST (12/15/2009 8:49 EDT) Specimen Description Cervix, ThinPrep vial [facility] Result Negative for HPV types 16, 18, 31, 33, 35, 39, 45, 51, 52, 56, 58, 59, and 68. [facility] Report Status Final 12/24/2009 [facility] 12/15/2009 8:49 EDT 12/19/2009 8:49 EDT Ingrid Casillas MD MICROBIOLOGY - GENE [facility] ORDERABLES [facility] [address] [place] [address] * CYTOPATHOLOGY (12/15/2009 0:00 EDT) Pathology Report: CYTOPATHOLOGY REPORT ? Reports generated via electronic interface contain original data; ? however they are lacking the format of the original report. ? Caution should be taken when reading/interpreti ng unformatted reports. ? Name: ? SANDHYA BARRETT B ? Accession #: ? [id number] ? : ? 1960 (Age: 49) ??F ?Collect Date: ? 12/15/2009 ? Location: ? [facility] ? Receive Date: ? 12/16/2009 ? Provider: ?INGRID BOLTON MD ? Copy to: ? Specimen/Source: ?Pap Test, Cervix, ThinPrep Imaging System with manual ?? evaluation ? Last Menstrual Period: ? 05/26/10 ? Other: ? HPVDX - HPV testing requested regardless of diagnosis on current ThinPrep Pap ?? test. ? SPECIMEN ADEQUACY ? Satisfactory for Evaluation ? - transformation zone component absent ? GENERAL CATEGORIZATION ? Negative for Intraepithelial Lesion or Malignancy ? Document reviewed and electronically signed by: ? Eboni Chapito, CT(ASCP) ? Report Date: ??12/18/2009 15:06 ? End of Report ? [facility] 12/15/2009 12/16/2009 Ingrid Casillas MD PATHOLOGY ORDERABLE S [facility] [address] [place] [address] documented in this encounter Visit Diagnoses Not on filedocumented in this encounter Care Teams Pediatric Dietician Relationship Specialty Start Date End Date Unknown, Provider, PCP - General 10/23/09 07/08/10 documented as of this encounter
--- OUTSIDE RECORDS SUMMARY | 2024-03-20 21:38 | XMS_ITS | Encounter Summary ---
Author Organization [facility] Address [address] [place] [address] Care Team Providers Care Near Eastern Archaeology Lecturer Name Role Phone Unknown, Provider MD Primary Care Provider None, Provider Primary Care Provider Unavailabl e Encounter Details Date Type Department Care Team (Late st Contact Info) Description 10/18/2005 Results Only [facility] - Maple conversion [address] [place] [address] Agnieszka Simpson MD Social History Tobacco Use Types Packs/Day Years [...] 8:30 EDT Appointment [facility] Ultrasound [address] [place] [address] 04/17/2024 10:50 EDT Appointment [facility] Endoscopy - [facility] [address] [place] [address] Marcellus Walsh MD 111 [facility], Level 5 [place] [phone] 05/01/2024 13:30 EDT Appointment [facility] Breast Imaging - [address] [address] 05/15/2024 15:00 EST Telemedicine [facility] Gastroenterology - [address] [address] Madhu Park MD PhD [address] [facility], Level 5 [place] [phone] 12/10/2024 11:30 EDT Office Visit [facility] Surgical Oncology - [address] [phone] [facility], PA-C [address] [facility], [facility] 2 [place] [phone] documented as of this encounter Procedures Procedure Name Priority Date/Time Associated Diagnosis Comments CYTOPATHOLOGY Routine 10/18/2005 0:00 EDT documented in this encounter Results * CYTOPATHOLOGY (10/18/2005 0:00 EDT) Pathology Report: CYTOPATHOLOGY REPORT Reports generated via electronic interface contain original data; however they are lacking the format of the original report. Caution should be taken when reading/interpreti ng unformatted reports. Name: ? KATALINA BARRETTORASadi Sanchez ? Accession #: ? [id number] : ? 1960 (Age: 45) ??F ?Collect Date: ? 10/18/2005 Location: ? [facility] ? Receive Date: ? 10/19/2005 Provider: ?AGNIESZKA SIMPSON MD Copy to: ? Specimen/Source: ?ThinPrep Pap Test, Cervix/Endocervix, processed on Snehta ThinPrep Imaging System, with manual evaluation Last Menstrual Period: ? 10/09/05 Other: ? DHPV - HPV testing requested if ASCUS/KIERRA on the current ThinPrep Pap test. ? SPECIMEN ADEQUACY ? Satisfactory for Evaluation - transformation zone component absent GENERAL CATEGORIZATION ? Negative for Intraepithelial Lesion or Malignancy ? Document reviewed and electronically signed by: ? SMITH Foreman(ASCP) ? Report Date: ??10/20/2005 14:46 End of Report [facility] 10/18/2005 10/19/2005 Agnieszka Simpson MD PATHOLOGY OR DERABLES Performing Organization Address City/State/[facility] Co de Phone Number [facility] [address] [place] [address] documented in this encounter Visit Diagnoses Not on filedocumented in this encounter Care Teams Near Eastern Archaeology Lecturer Relationship Specialty Start Date End Date Unknown, Provider, PCP - General 10/23/09 07/08/10 None, Provider PCP - General 12/19/08 10/22/09 documented as of this encounter
--- OUTSIDE RECORDS SUMMARY | 2024-03-20 21:38 | XMS_ITS | Encounter Summary ---
Author Organization [facility] Address [address] [place] [address] Care Team Providers Care Hooker Up Name Role Phone None, Provider Primary Care Provider Unavailabl e Encounter Details Date Type Department Care Team (Late st Contact Info) Description 11/13/2010 Results Only [facility] Dermatology 5th Floor [address] [phone] Bogdan Harper PA [address] [phone] Social History Tobacco Use Types Packs/Day Years [...] 8:30 EDT Appointment [facility] Ultrasound 0 [place] [address] 04/17/2024 10:50 EDT Appointment [facility] - [address] [phone] Marcellus Walsh MD 111 [facility], Level 5 [place] [phone] 05/01/2024 13:30 EDT Appointment [facility] Breast Imaging - [facility] S [place] 1 [place], [place] [phone] 05/15/2024 15:00 EST Telemedicine [facility] Gastroenterology - [address] [phone] Madhu Park MD PhD 111 [facility], Level [address] [place] [phone] 12/10/2024 11:30 EDT Office Visit [facility] Surgical Oncology - [address] [address] Magnolia Blood PA-C 111 [facility], [facility] 2 [place] [phone] documented as of this encounter Procedures Procedure Name Priority Date/Time Associated Diagnosis Comments SURGICAL PATHOLOGY Routine 11/13/2010 0:00 EDT documented in this encounter Results * SURGICAL PATHOLOGY (11/13/2010 0:00 EDT) Pathology Report: SURGICAL PATHOLOGY REPORT ? Reports generated via electronic interface contain original data; ? however they are lacking the format of the original report. ? Caution should be taken when reading/interpreti ng unformatted reports. ? Name: ? SANDHYA BARRETT ? Accession #: ? [id number] ? : ? 1960 (Age: 50) ??F ? Collect Date: ? 11/13/2010 ? Location: ? DERM ? Receive Date: ? 11/13/2010 ? Provider: BOGDAN M SOWLE PA ? Copy to: ? Final Pathologic Diagnosis: ? Skin of vázquez, right, shave biopsy: ? 1. ?Basal cell carcinoma, superficial and nodular types. ? - Lesion extends to peripheral edge and base of biopsy specimen. ? Document reviewed and electronically signed by: ? DIXIE A PLATA MD ? Report ??Date: 11/16/2010 14:47 ? By the signature above, the attending physician certifies that he/she has ? personally conducted a gross and/or microscopic examination of the described ? specimens and rendered or confirmed the above diagnosis. ? Specimen(s) Received: ? Right vázquez ? Clinical History: ? 1 yr h/o pink pearly 8.0 mm 1.0 cm plaque, R/O BCC vs other; clinical ? diagnosis code: 239.2 ? Gross Description: ? Received in formalin labelled Cesilia Sandhya and Gladys vázquez is a 0.9 x 0.8 cm irregular shave biopsy of brown-white skin. ??The specimen is trisected and ? entirely submitted in a single cassette. ??(A. Harvey)/mms ? End of Report ? [facility] 11/13/2010 11/13/2010 14: 29 EDT Bogdan GREWAL PATHOLOGY ORDERAB LES Performing Organization Address City/State/[facility] Co de Phone Number [facility] [address] [place] [address] documented in this encounter Visit Diagnoses Not on filedocumented in this encounter Care Teams Hooker Up Relationship Specialty Start Date End Date None, Provider PCP - General 07/09/10 12/22/10 documented as of this encounter
--- OUTSIDE RECORDS SUMMARY | 2024-03-20 21:38 | XMS_ITS | Encounter Summary ---
Author Organization [facility] Address [address] [place] [address] Care Team Providers Care Alligator Shear Operator Name Role Phone None, Provider Primary Care Provider Unavailabl e Encounter Details Date Type Department Care Team (Late st Contact Info) Description 05/20/2006 Before PRISM Converted Visit (Maple) [facility] - Maple conversion [address] [place] [address] Clarice Murcia MD [address] [place] [phone] Social History Tobacco Use Types Packs/Day Years Used Date Smoking Tobacco: Never Assessed Sex and Gender Information Value Date Recorded Sex Assigned at Not on file Gender Identity Female 05/16/2019 10:23 EST Sexual Orientation Not on file documented as of this encounter Progress Notes * Clarice Murcia MD - 07/17/2009 1330 EST DIVISION OF SURGICAL ONCOLOGY -[facility] PROGRESS/FOLLOWUP NOTE - 05/20/2006 S: Sandhya is a 47-year-old woman seen in the [facility] on a yearly basis secondary to extreme breast density and bilateral breast lumps. She comes in today without any breast complaints. Her last mammogram was in 11/13. She is noted to be extremely dense without any significant abnormalities. LMP107/13/05. Review of systems is negative. Medications: None. Allergies: None. Update form has been reviewed. O: On physical examination Sandhya is well-appearing. Her color is good, and her skin is warm and dry. Her sclerae are anicteric. She has no cervical, supraclavicular, or axillary lymphadenopathy. Her breasts are examined in the sitting and supine positions. She has large, pendulous, dense breasts b ilaterally with fibrotic texture without any dominant masses. There are no significant palpable abnormalities and no discharge noted. There is no adenopathy. Ultrasound: Office ultrasound is performed using the 12 megahertz transducer. Both breasts are examined in their entirety. She has evidence of dense, fibrous tissue throughout with no evidence of anydefinite solid abnormalities. Patient with dense tissue bilaterally with normal breast examination and stable clinical exam. There is no evidence for malignancy. She will return to see me again in one year or sooner should problems arise. Mammogram is scheduled for 11/14. Signed by Clarice Murcia MD 05/27/2006 11:59 aBsil Arana MD Clarice Murcia MD - Michael Murcia MD P - kkb Job ID: [id number] Document ID: [id number] cc: MD Nicki Osborn MD documented in this encounter Plan of Treatment Upcoming Encounters Date Type Department Care Team (Late st Contact Info) Description 03/21/2024 8:30 EDT Appointment Karin Danielle Ultrasound [address] [place] [address] 04/17/2024 10:50 EDT Appointment [facility] Endoscopy - [facility] [address] [place], [place] [address] Marcellus Walsh MD 111 [facility], Level 5 [place] [phone] 05/01/2024 13:30 EDT Appointment [facility] Breast Imaging - [facility] S [address] [phone] 05/15/2024 15:00 EST Telemedicine [facility] Gastroenterology - [address] [phone] Madhu Park MD PhD [address] [place] [address], [facility] 5 [place] [phone] 12/10/2024 11:30 EDT Office Visit [facility] Surgical Oncology - [address] [phone] Magnolia Blood PA-C [address] [place] [address], [facility] 2 [place] [address] documented as of this encounter Visit Diagnoses Not on filedocumented in this encounter Care Teams Alligator Shear Operator Relationship Specialty Start Date End Date None, Provider PCP - General 12/19/08 10/22/09 documented as of this encounter
--- OUTSIDE RECORDS SUMMARY | 2024-03-20 21:38 | XMS_ITS | Encounter Summary ---
Author Organization [facility] Address [address] [place] [address] Care Team Providers Care Hospice Nurse Practitioner Name Role Phone Unknown, Provider Primary Care Provider Encounter Details Date Type Department Care Team (Late st Contact Info) Description 10/27/2009 Abstract Used for ABSTRACTING Data [phone] Unknown, Provider, BCC (basal cell carcinoma); Dense breasts Social History Tobacco Use Types Packs/Day [...] 8:30 EDT Appointment [facility] Ultrasound [address] [place], [place] [phone] 04/17/2024 10:50 EDT Appointment [facility] Endoscopy - [facility] [address] [place], [place] [address] Marcellus Walsh MD [address] [facility], Level 5 [place] [phone] 05/01/2024 13:30 EDT Appointment [facility] Breast Imaging - [address] [phone] 05/15/2024 15:00 EST Telemedicine [facility] Gastroenterology - [address] 805211 Madhu Park MD PhD [address] [facility], Level 5 [place] [phone] 12/10/2024 11:30 EDT Office Visit [facility] Surgical Oncology - [address] 635[address] [facility] Blood PAPrabhaC [address] [facility], [facility] 2 [place] [phone] documented as of this encounter Visit Diagnoses Diagnosis BCC (basal cell carcinoma) Basal cell carcinoma of skin, site unspecified Dense breasts Inconclusive mammogram documented in this encounter Historical Medications * This list may reflect changes made after this encounter. Medication Sig Dispensed Refills Start Date End Date VITAMIN E/FLAXSEED OIL (OMEGA-3 FLAXSEED OIL ORAL) Take 1 Tab by mouth daily. FERROUS FUMARATE (IRON ORAL) Take 2 Tabs by mouth daily. 07/18/2015 ERGOCALCIFEROL (VITAMIN D ORAL) Take 2 Tabs by mouth daily. 07/18/2015 Multivitamins with Minerals Tab Take 1 Tab by mouth daily. 07/18/2015 IBUPROFEN (ADVIL ORAL) Take by mouth as needed. Rarely. 07/18/2015 added in this encounter Care Teams Hospice Nurse Practitioner Relationship Specialty Start Date End Date Unknown, Provider, PCP - General 10/23/09 07/08/10 documented as of this encounter
--- OUTSIDE RECORDS SUMMARY | 2024-03-20 21:38 | XMS_ITS | Encounter Summary ---
Author Organization [facility] Address [address] [place] [address] Care Team Providers Care Certified Prosthetist Name Role Phone Unknown, Provider Primary Care Provider [phone] Encounter Details Date Type Department Care Team (Late st Contact Info) Description 04/23/2010 Abstract Used for ABSTRACTING Data [phone] Unknown, ProviderMD Social History Tobacco Use Types Packs/Day Years [...] 8:30 EDT Appointment [facility] Danielle Ultrasound [address] [place] [address] 04/17/2024 10:50 EDT Appointment [facility] Endoscopy - [address] [phone] Marcellus Walsh MD 111 [facility], Level 5 [place] [phone] 05/01/2024 13:30 EDT Appointment [facility] Breast Imaging - [address] [address] 05/15/2024 15:00 EST Telemedicine [facility] Gastroenterology - [address] 491401 Madhu Park MD PhD [address] [place] [address], [facility] 5 [place] [phone] 12/10/2024 11:30 EDT Office Visit [facility] Surgical Oncology - [address] 7477[address] Magnolia Blood PA-C [address] [place] [address], [facility] 2 [place] [phone] documented as of this encounter Visit Diagnoses Not on filedocumented in this encounter Care Teams Certified Prosthetist Relationship Specialty Start Date End Date Unknown, Provider, PCP - General 10/23/09 07/08/10 documented as of this encounter
--- OUTSIDE RECORDS SUMMARY | 2024-03-20 21:38 | XMS_ITS | Encounter Summary ---
Author Organization [facility] Address [address] [place] [address] Care Team Providers Care Clinic Manager Name Role Phone None, Provider Primary Care Provider Unavailabl e Encounter Details Date Type Department Care Team (Late st Contact Info) Description 05/14/2005 Before PRISM Converted Visit (Maple) [facility] - Maple conversion [address] [place] [address] Clarice Murcia MD [address] [place] [phone] Social History Tobacco Use Types Packs/Day Years Used Date Smoking Tobacco: Never Assessed Sex and Gender Information Value Date Recorded Sex Assigned at Not on file Gender Identity Female 05/16/2019 10:23 EST Sexual Orientation Not on file documented as of this encounter Progress Notes * Clarice Murcia MD - 09/09/2009 1942 EST DIVISION OF [facility]ARE [facility]ENTER PROGRESS/FOLLOWUP NOTE - 05/14/2005 S: Sandhya is a 44-year-old woman who is followed in the [facility] secondary to extremely dense tissue and bilateral breast lumps. She comes in today without any new complaints. Her last mammogram was in 09/12. She was noted to be extremely dense bilaterally without any significant masses, c alcifications, or abnormalities seen. Review of systems is negative per intake sheet. Medications: Calcium, Vitamin C, multivitamin, control pill which is new for brith control but is also helping her with her premenstrual syndrome. Update form has been reviewed. O: On physical examination Sandhya is well-appearing. Hercolor is good, and her skin is warm and dry. Her sclerae are anicteric. She has no cervical, supraclavicular, or axillary lymphadenopathy. Herbreasts are examined in the sitting and supine positions. There are no skin or nipple changes. Careful palpation of both breasts reveals multiple nodular areas without any discrete new worrisome areas. They are nontender. She has no discharge but does report some green discharge occasionally. Ultrasound: Office ultrasound is performed using the 12 megahertz transducer. Both breasts are examined in their entirety. She has evidence of fibrous tissue throughout with some minimally dilated ducts and some clustered cystic abnormalities in the right breast upper inner quadrant. There are no discrete areas of complex cystic or solid abnormalities. There are no areas viewed with concern. Patient with bilateral dense breast tissue with normal bilateral breast ultrasound and stable clinical examination. There is no evidence of malignancy. The patient will return in one year. She will have a mammogram again in 09/13, and this has been scheduled. Signed by Clarice Murcia MD 05/21/2005 15:26 Basil Arana MD Clarice Murcia MD - Clarice Murcia MD A - clarence Job ID: [id number] Document ID: [id number] cc: MD Nicki Osborn MD documented in this encounter Plan of Treatment Upcoming Encounters Date Type Department Care Team (Late st Contact Info) Description 03/21/2024 8:30 EDT Appointment Karin Danielle Ultrasound [address] [place], [place] [address] 04/17/2024 10:50 EDT Appointment [facility] Endoscopy - [facility] [address] [place], [place] [phone] Marcellus Walsh MD 111 [facility], Level 5 [place] [phone] 05/01/2024 13:30 EDT Appointment [facility] Breast Imaging - [facility] [address] [place], [place] [phone] 05/15/2024 15:00 EST Telemedicine [facility] Gastroenterology - [address] [phone] Madhu Park MD PhD [address] [place] [address], [facility] 5 [place] [phone] 12/10/2024 11:30 EDT Office Visit [facility] Surgical Oncology - [address] [phone] Magnolia Blood PA-C [address] [place] [address], [facility] 2 [place] [phone] documented as of this encounter Visit Diagnoses Not on filedocumented in this encounter Care Teams Clinic Manager Relationship Specialty Start Date End Date None, Provider PCP - General 12/19/08 10/22/09 documented as of this encounter
--- OUTSIDE RECORDS SUMMARY | 2024-03-20 21:38 | XMS_ITS | Encounter Summary ---
Author Organization [facility] Address [address] [place] [address] Care Team Providers Care Director Clinical Research Name Role Phone Unavailable Primary Care Provider Unavailabl e Encounter Details Date Type Department Care Team (Late st Contact Info) Description 08/10/2004 13:39 EST Hospital Encounter [facility] - Other [address] [place] [address] Nicki Dover MD Social History Tobacco Use Types Packs/Day [...] 14:28 EST documented as of this encounter Plan of Treatment Upcoming Encounters Date Type Department Care Team (Late st Contact Info) Description 03/21/2024 8:30 EDT Appointment Karin Saul 0 [place], [place] [address] 04/17/2024 10:50 EDT Appointment [facility] Endoscopy - [facility] [address] [place], [place] [phone] Marcellus Walsh MD 111 [facility], [facility] 5 [place] [phone] 05/01/2024 13:30 EDT Appointment [facility] Breast Imaging - [address] [phone] 05/15/2024 15:00 EST Telemedicine [facility] Gastroenterology - [address] [phone] Madhu Park MD PhD [address] [place] [phone] 12/10/2024 11:30 EDT Office Visit [facility] Surgical Oncology - [address] [phone] [facility] Blood PA-C [address] [place] [address], [facility] 2 [place] [phone] documented as of this encounter Visit Diagnoses Not on filedocumented in this encounter
--- OUTSIDE RECORDS SUMMARY | 2024-03-20 21:38 | XMS_ITS | Encounter Summary ---
Author Organization [facility] Address [address] [place] [address] Care Team Providers Care Jack Of All Trades Name Role Phone Unknown, Provider Primary Care Provider Encounter Details Date Type Department Care Team (Late st Contact Info) Description 01/19/2010 Results Only [facility] Surgical Oncology - [address] [phone] Josh Daniels MD [address] [phone] Social History Tobacco Use Types Packs/Day Years [...] 8:30 EDT Appointment Karin Danielle Ultrasound [address] [place] [address] 04/17/2024 10:50 EDT Appointment [facility] Endoscopy - [facility] [address] [place], [place] 3128[address] Marcellus Walsh MD 111 [facility], Level 5 [place] [phone] 05/01/2024 13:30 EDT Appointment [facility] Breast Imaging - [address] [address] 05/15/2024 15:00 EST Telemedicine [facility] Gastroenterology - [address] [phone] Madhu Park MD PhD [address] [place] [address], Level 5 [place] [phone] 12/10/2024 11:30 EDT Office Visit [facility] Surgical Oncology - [address] [phone] Magnolia Blood, PA-C [address] [place] [address], Level 2 [place] [phone] documented as of this encounter Visit Diagnoses Not on filedocumented in this encounter Care Teams Jack Of All Trades Relationship Specialty Start Date End Date Unknown, Provider, PCP - General 10/23/09 07/08/10 documented as of this encounter
--- OUTSIDE RECORDS SUMMARY | 2024-03-20 21:38 | XMS_ITS | Encounter Summary ---
Author Organization [facility] Address [address] [place] [address] Care Team Providers Care Lawn Caretaker Name Role Phone Unknown, Provider Primary Care Provider Encounter Details Date Type Department Care Team (Late st Contact Info) Description 11/26/2009 Abstract Used for ABSTRACTING Data [phone] Unknown, ProviderMD BCC (basal cell carcinoma) Social History Tobacco Use Types Packs/Day Years [...] 8:30 EDT Appointment Karin Danielle Ultrasound [address] [place] [address] 04/17/2024 10:50 EDT Appointment [place] [facility] - [facility] [address] [place], [place] 8543[address] Marcellus Walsh MD 111 [facility], Level 5 [place] [phone] 05/01/2024 13:30 EDT Appointment [place] Breast Imaging - [address] 627441 05/15/2024 15:00 EST Telemedicine [place] Gastroenterology - [address] 714591 Madhu Park MD PhD [address] [place] [address], [facility] 5 [place] [phone] 12/10/2024 11:30 EDT Office Visit [place] Surgical Oncology - [address] [phone] Magnolia Blood PA-C [address] [place] [address], [facility] 2 [place] [phone] documented as of this encounter Visit Diagnoses Diagnosis BCC (basal cell carcinoma) Basal cell carcinoma of skin, site unspecified documented in this encounter Care Teams Lawn Caretaker Relationship Specialty Start Date End Date Unknown, Provider, PCP - General 10/23/09 07/08/10 documented as of this encounter
--- OUTSIDE RECORDS SUMMARY | 2024-03-20 21:38 | XMS_ITS | Encounter Summary ---
Author Organization [facility] Address [address] [place] [address] Care Team Providers Care Silk Spreader Name Role Phone None, Provider Primary Care Provider Unavailabl e Encounter Details Date Type Department Care Team (Late st Contact Info) Description 05/20/2009 7:50 EST - 05/20/2009 23:59 EST Hospital Encounter [facility] [address] [place] [address] Josh Daniels MD MSc [address] [place] [phone] Discharge Disposition: Auto Discharge Social History Tobacco [...] 8:30 EDT Appointment Karin Danielle Ultrasound [address] [place] [address] 04/17/2024 10:50 EDT Appointment [facility] Endoscopy - [facility] [address] [place], [place] 551361 Marcellus Walsh MD 111 [facility], Level 5 [place] [phone] 05/01/2024 13:30 EDT Appointment [facility] Breast Imaging - [facility] S [place] 1 [place], [place] 1790[address] 05/15/2024 15:00 EST Telemedicine [facility] Gastroenterology - [address] [phone] Madhu Park MD PhD [address] [place] [address], Level 5 [place] [phone] 12/10/2024 11:30 EDT Office Visit [facility] Surgical Oncology - [address] [phone] Magnolia Blood PAPrabhaC [address] [place] [address], Level 2 [place] [phone] documented as of this encounter Visit Diagnoses Not on filedocumented in this encounter Care Teams Silk Spreader Relationship Specialty Start Date End Date None, Provider PCP - General 12/19/08 10/22/09 documented as of this encounter
--- OUTSIDE RECORDS SUMMARY | 2024-03-20 21:38 | XMS_ITS | Encounter Summary ---
Author Organization [facility] Address [address] [place] [address] Care Team Providers Care Lumber Hacker Name Role Phone Unavailable Primary Care Provider Unavailabl e Encounter Details Date Type Department Care Team (Late st Contact Info) Description 12/19/2007 7:55 EDT Hospital Encounter [address] [address] Clarice Murcia MD [address] [place] [phone] Social History Tobacco Use Types Packs/Day [...] 8:30 EDT Appointment Karin Danielle Ultrasound 7[address] [place] [address] 04/17/2024 10:50 EDT Appointment [facility] Endoscopy - [address] 609751 Marcellus Walsh MD [address] [place] [address] 5 [place] [phone] 05/01/2024 13:30 EDT Appointment [facility] Breast Imaging - [address] [phone] 05/15/2024 15:00 EST Telemedicine [facility] Gastroenterology - [address] [phone] Madhu Park MD PhD [address] [place] [address] 5 [place] [phone] 12/10/2024 11:30 EDT Office Visit [facility] Surgical Oncology - [address] [phone] Magnolia Blood, PA-C [address] [place] [address], [facility] 2 [place] [phone] documented as of this encounter Visit Diagnoses Not on filedocumented in this encounter
--- OUTSIDE RECORDS SUMMARY | 2024-03-20 21:38 | XMS_ITS | Encounter Summary ---
Author Organization [facility] Address [address] [place] [address] Care Team Providers Care Orthotic Practitioner Name Role Phone Unknown, Provider Primary Care Provider Encounter Details Date Type Department Care Team (Late st Contact Info) Description 06/11/2010 Results Only [facility] Surgical Oncology - [address] 615331 Jaime Hester NP [address] [place] [address] [place] [phone] Social History Tobacco Use Types Packs/Day Years [...] Description 03/21/2024 8:30 EDT Appointment Karin Danielle [facility] 7[address] [place] [address] 04/17/2024 10:50 EDT Appointment [facility] Endoscopy - [facility] [address] [place], [place] [address] Marcellus Walsh MD 111 [facility], Level 5 [place] [phone] 05/01/2024 13:30 EDT Appointment [facility] Breast Imaging - [facility] S [place] 1 [place], [place] [address] 05/15/2024 15:00 EST Telemedicine [facility] Gastroenterology - [address] 585121 Madhu Park MD PhD [address] [place] [address], Level 5 [place] [phone] 12/10/2024 11:30 EDT Office Visit [facility] Surgical Oncology - [address] [phone] Magnolia Blood, PA-C [address] [place] [address], Level 2 [place] [phone] documented as of this encounter Visit Diagnoses Not on filedocumented in this encounter Care Teams Orthotic Practitioner Relationship Specialty Start Date End Date Unknown, Provider, PCP - General 10/23/09 07/08/10 documented as of this encounter
--- OUTSIDE RECORDS SUMMARY | 2024-03-20 21:38 | XMS_ITS | Encounter Summary ---
Author Organization [facility] Address [address] [place] [address] Care Team Providers Care Radio Technician Name Role Phone None, Provider Primary Care Provider Unavailabl e Reason for Visit * Reason Onset Date Comments Biopsy 11/16/2010 Encounter Details Date Type Department Care Team (Late st Contact Info) Description 11/16/2010 Telephone [facility] Dermatology 5th Floor [facility] [address] [place] [address] Katina Harper, PA [address] [place] [phone] Biopsy Social History Tobacco Use Types Packs/Day Years [...] * Telephone Encounter - Ambreen Briceno - 11/24/2010 1029 EDT Spoke with patient today regarding her results. She is scheduled for 12.11.10 with Daija Reddy. The patient had no further questions for me at this time. Ambreen Briceno 11/24/2010 10:28 * Telephone Encounter - Nicki Conn - 11/24/2010 0841 EDT Patient requesting biopsy results. documented in this encounter Plan of Treatment Upcoming Encounters Date Type Department Care Team (Late st Contact Info) Description 03/21/2024 8:30 EDT Appointment Karin Danielle Ultrasound [address] [place] [address] 04/17/2024 10:50 EDT Appointment [facility] Endoscopy - [address] [phone] Marcellus Walsh MD [address] [place] [phone] 05/01/2024 13:30 EDT Appointment [facility] Breast Imaging - [address] [phone] 05/15/2024 15:00 EST Telemedicine [facility] Gastroenterology - [address] [phone] Madhu Park MD PhD [address] [place] [address] 5 [place] [phone] 12/10/2024 11:30 EDT Office Visit [facility] Surgical Oncology - [address] [phone] Magnolia Blood PA-C [address] [place] [address], [facility] 2 [place] [phone] documented as of this encounter Visit Diagnoses Not on filedocumented in this encounter Care Teams Radio Technician Relationship Specialty Start Date End Date None, Provider PCP - General 07/09/10 12/22/10 documented as of this encounter
--- OUTSIDE RECORDS SUMMARY | 2024-03-20 21:38 | XMS_ITS | Encounter Summary ---
Author Organization [facility] Address [address] [place] [address] Care Team Providers Care Irrigation Equipment Mechanic Name Role Phone Unknown, Provider Primary Care Provider Encounter Details Date Type Department Care Team (Late st Contact Info) Description 11/17/2009 10:46 EDT - 11/17/2009 23:59 EDT Hospital Encounter [facility] [address] [place] [address] Josh Daniels MD MSc [address] [place] [phone] Discharge Disposition: Auto Discharge Social History Tobacco [...] Take 1 Tab by mouth daily. 07/18/2015 documented as of this encounter Discharge Disposition Disposition Code Departure Means Destination Auto Discharge Home documented in this encounter Procedure Notes * Inpatient, Physician - 11/17/2009 0000 EDTAssociated Order(s): ORDERS - SCANNED documented in this encounter Plan of Treatment Upcoming Encounters Date Type Department Care Team (Late st Contact Info) Description 03/21/2024 8:30 EDT Appointment Karin Danielle Ultrasound [address] [place], [place] [address]506 04/17/2024 10:50 EDT Appointment [facility] Endoscopy - [address] 865791 Marcellus Walsh MD [address] [place] [phone] 05/01/2024 13:30 EDT Appointment [facility] Breast Imaging - [address] [phone] 05/15/2024 15:00 EST Telemedicine [facility] Gastroenterology - [address] [phone] Madhu Park MD PhD [address] [place] [address] 5 [place] [phone] 12/10/2024 11:30 EDT Office Visit [facility] Surgical Oncology - [address] [phone] Magnolia Blood PA-C [address] [place] [address], [facility] 2 [place] [phone] documented as of this encounter Procedures Procedure Name Priority Date/Time Associated Diagnosis Comments ORDERS - SCANNED 04/27/2010 10:2 2 EDT documented in this encounter Results * ORDERS - SCANNED (04/27/2010 10:22 EDT) 04/27/2010 10:2 2 EDT Narrative Procedure Note Inpatient, Physician - 11/17/2009 0:00 EDT Physician Inpatient ADMISSION ORDERAB LES documented in this encounter Visit Diagnoses Not on filedocumented in this encounter Care Teams Irrigation Equipment Mechanic Relationship Specialty Start Date End Date Unknown, Provider, PCP - General 10/23/09 07/08/10 documented as of this encounter
--- OUTSIDE RECORDS SUMMARY | 2024-03-20 21:38 | XMS_ITS | Encounter Summary ---
Author Organization [facility] Address [address] [place] [address] Care Team Providers Care Japanese Interpreter Name Role Phone None, Provider Primary Care Provider Unavailabl e Encounter Details Date Type Department Care Team (Late st Contact Info) Description 12/11/2010 Results Only [facility] Dermatology 5th Floor [address] [phone] Daija Parker PA-C [address] [place] [phone] Social History Tobacco Use Types Packs/Day [...] Description 03/21/2024 8:30 EDT Appointment Karin Danielle [facility] [address] [place], [place] [address] 04/17/2024 10:50 EDT Appointment [facility] Endoscopy - [address] [address] Marcellus Walsh MD 111 [facility] 5 [place] [phone] 05/01/2024 13:30 EDT Appointment [facility] Breast Imaging - [facility] S [place] 1 [place], [place] [phone] 05/15/2024 15:00 EST Telemedicine [facility] Gastroenterology - [address] [phone] Madhu Park MD PhD 111 [facility], Level 5 [place] [phone] 12/10/2024 11:30 EDT Office Visit [facility] Surgical Oncology [address] [phone] Magnolia Blood PAPrabhaC [address] [place] [address], [facility] 2 [place] [phone] documented as of this encounter Procedures Procedure Name Priority Date/Time Associated Diagnosis Comments SURGICAL PATHOLOGY Routine 12/11/2010 0:00 EDT documented in this encounter Results * SURGICAL PATHOLOGY (12/11/2010 0:00 EDT) Pathology Report: SURGICAL PATHOLOGY REPORT ? Reports generated via electronic interface contain original data; ? however they are lacking the format of the original report. ? Caution should be taken when reading/interpreti ng unformatted reports. ? Name: ? SANDHYA BARRETT ? Accession #: ? [id number] ? : ? 1960 (Age: 50) ??F ? Collect Date: ? 12/11/2010 ? Location: ? DERM ? Receive Date: ? 12/11/2010 ? Provider: DAIJA E PARKER PA ? Copy to: BOGDAN M SOWLE PA ? Final Pathologic Diagnosis: ? Skin of vázquez, right, tangential excision: ? 1. ?Epidermal reparative change and dermal scar. ? 2. ? No residual basal cell carcinoma identified. ? Document reviewed and electronically signed by: ? DIXIE A PLATA MD ? Report ??Date: 12/14/2010 13:35 ? By the signature above, the attending physician certifies that he/she has ? personally conducted a gross and/or microscopic examination of the described ? specimens and rendered or confirmed the above diagnosis. ? Specimen(s) Received: ? Right vázquez ? Clinical History: ? Basal cell carcinoma [id number]; clinical diagnosis code: 173.9 ? Gross Description: ? Received in formalin labelled Sandhya Barrett and Gladys vázquez is a 1.3 x 1.2 cm ovoid tangential excision of brown, focally scaled skin. ??The margin is inked. The specimen is serially sectioned and entirely submitted in a single cassette. /tabatha ? End of Report ? [facility] 12/11/2010 12/11/2010 11: 20 EDT Daija Parker PA-C PATHOLOGY ANITA RIVERA Performing Organization Address City/State/[facility] Co de Phone Number [facility] [address] [place] [address] documented in this encounter Visit Diagnoses Not on filedocumented in this encounter Care Teams Japanese Interpreter Relationship Specialty Start Date End Date None, Provider PCP - General 07/09/10 12/22/10 documented as of this encounter
--- OUTSIDE RECORDS SUMMARY | 2024-03-20 21:38 | XMS_ITS | Encounter Summary ---
Author Organization [facility] Address [address] [place] [address] Care Team Providers Care Tobacco Educator Name Role Phone Unknown, Provider Primary Care Provider Encounter Details Date Type Department Care Team (Late st Contact Info) Description 03/11/2010 14:06 EDT - 03/11/2010 23:59 EDT Hospital Encounter [facility] - [address] [address] Ingrid Casillas MD [address] [place] [address] 220 [place] [phone] Josh Daniels MD MSc [address] [place] [address] Discharge Disposition: Home or Self Care Social [...] Code Departure Means Destination Home or Self Jail documented in this encounter Plan of Treatment Upcoming Encounters Date Type Department Care Team (Late st Contact Info) Description 03/21/2024 8:30 EDT Appointment Karin Shashi Ultrasound 7[address] [place] [address] 04/17/2024 10:50 EDT Appointment [facility] Endoscopy - [address] 967051 Marcellus Walsh MD [address] [place] [phone] 05/01/2024 13:30 EDT Appointment [facility] Breast Imaging - [address] [phone] 05/15/2024 15:00 EST Telemedicine [facility] Gastroenterology - [address] 207321 Madhu Park MD PhD [address] [place] [phone] 12/10/2024 11:30 EDT Office Visit [facility] Surgical Oncology - [address] 620531 Magnolia Blood PA-C [address] [place] [address], [facility] 2 [place] [phone] documented as of this encounter Visit Diagnoses Not on filedocumented in this encounter Care Teams Tobacco Educator Relationship Specialty Start Date End Date Unknown, Provider, PCP - General 10/23/09 07/08/10 documented as of this encounter
--- OUTSIDE RECORDS SUMMARY | 2024-03-20 21:38 | XMS_ITS | Encounter Summary ---
Author Organization [facility] Address [address] [place] [address] Care Team Providers Care Agile Java Developer Name Role Phone None, Provider Primary Care Provider Unavailabl e Encounter Details Date Type Department Care Team (Late st Contact Info) Description 07/16/2010 Results Only Imaging [facility] Surgical Oncology - [address] [address]74[address] Josh Daniels MD MSc [address] [place] [phone] Social History Tobacco Use Types Packs/Day Years [...] 8:30 EDT Appointment Karin Danielle Ultrasound [address] [place] [address] 04/17/2024 10:50 EDT Appointment [facility] Endoscopy - [facility] [address] [place], [place] [phone] Marcellus Walsh MD [address] [facility], Level 5 [place] [phone] 05/01/2024 13:30 EDT Appointment [facility] Breast Imaging - [facility] S [place] 1 [place], [place] [phone] 05/15/2024 15:00 EST Telemedicine [facility] Gastroenterology - [address] [phone] Madhu Park MD PhD [address] [facility], Level 5 [place] [phone] 12/10/2024 11:30 EDT Office Visit [facility] Surgical Oncology - [address] [address] Magnolia Blood PA-C [address] [place] [address], Level 2 [place] [phone] documented as of this encounter Procedures Procedure Name Priority Date/Time Associated Diagnosis Comments MA MAMMO SCREENING DIGITAL 03/17/2011 11:51 EDT documented in this encounter Results * MA MAMMO SCREENING DIGITAL (03/17/2011 11:51 EDT) Anatomical Region Laterality Modality Other 03/17/2011 11:5 1 EDT 03/17/2011 18:33 EDT Narrative 03/17/2011 18:33 EDT Comparison is made to images from 03/11/2010 (bilateral) and images from 01/13/2009 (bilateral) and images from 12/19/2007 (bilateral) and images from 12/13/2006 (bilateral) and images from 11/16/2005 (bilateral) and images from 09/10/2004 and images from 09/02/2003. Bilateral Breast Findings: (CAD used to interpret routine digital) The breasts are extremely dense (greater than [...] (Category 0) at this time. Procedure Note 03/17/2011 Comparison is made to images from 03/11/2010 (bilateral) and images from 01/13/2009 (bilateral) and images from 12/19/2007 (bilateral) and images from 12/13/2006 (bilateral) and images from 11/16/2005 (bilateral) and images from 09/10/2004 and images from 09/02/2003. Bilateral Breast Findings: (CAD used to interpret routine digital) The breasts are extremely dense (greater than [...] additional imaging (Category 0) at this time. Josh Michael Daniels MD MSc IMG MAMMOGRAPHY ANITA RIVERA documented in this encounter Visit Diagnoses Not on filedocumented in this encounter Care Teams Agile Java Developer Relationship Specialty Start Date End Date None, Provider PCP - General 07/09/10 12/22/10 documented as of this encounter
--- OUTSIDE RECORDS SUMMARY | 2024-03-20 21:38 | XMS_ITS | Encounter Summary ---
Author Organization [facility] Address [address] [place] [address] Care Team Providers Care Tung Nut Grower Name Role Phone None, Provider Primary Care Provider Unavailabl e Reason for Visit * Reason Comments Procedure Basal cell carcinoma , right vázquez Encounter Details Date Type Department Care Team (Late st Contact Info) Description 12/11/2010 9:00 EDT Office Visit [facility] Dermatology 5th [address] [phone] Daija Reddy PA-C [address] [facility], Level [address] [place] [address] Basal cell carcinoma of lower extremity (Primary Dx) Social History Tobacco Use Types Packs/Day Years Used Date Smoking Tobacco: Never Alcohol Use Standard Drinks/Week Comments Yes 8.3 (1 standard drink = 0.6 oz p ure alcohol) Sex and Gender Information Value Date Recorded Sex Assigned at Not on file Gender Identity Female 05/16/2019 10:23 EST Sexual Orientation Not on file documented as of this encounter Patient Instructions * Patient Instructions* Daija Reddy PA-C - 12/11/2010 9:45 EDT DERMATOLOGY - WOUND CARE INSTRUCTIONS The DRESSING/BANDAID should remain in place for 24 hours. If the dressing comes loose before then, re-tape it carefully or change the bandage. You may shower after 24 hours; remove the bandage and replace it after the shower. Do not let the forceful stream of the shower hit your wound directly. If you bathe in a tub, the bath should be brief. DISCOMFORT: Postoperative pain is usually minimal. Extra-Strength Tylenol, two tablets every four hours, usually relives any pain you may have. Do not take Ibuprofen (Motrin, Advil), Naprosyn (Aleve), and Aspirin or aspirin- containing products as they increase the chance of bleeding for 5 days after your surgery , unless approved by your provider. BLEEDING: Attention has been given to your wound to prevent bleeding. You may notice a small amountof blood on the edges of the dressing the first day and this is NORMAL. Keep your head elevated for48 hours if the surgery was on the face or scalp. If the bleeding seems persistent and soils the dressing, apply firm, steady pressure over the dressing with gauze or a wash cloth for fifteen minutes. This is usually adequate treatment. If bleeding persists, call our office at or go to the nearest Walk in Clinic or Emergency Room. ACTIVITY: Relax and limit your physical activity for the first 48 hours after the procedure. Physical activity should also be limited if the excision included the shoulder, upper arm, and/or legs forthe next 7-10 days. WOUND CARE: ?? Wash hands with soap and water before changing the dressing. ?? Change the dressing daily and when it becomes wet The suture line should be cleansed daily with tap water. You may gently loosen any crusts with a cotton swab. Pat dry. The first day the wound may be tender and may bleed slightly or ooze a small amount clear fluid. For stubborn crusting, place a wet cloth over the wound for five minutes to soak and loosen crusts. Apply a thin layer of Vaseline over the wound. It is not recommended to use triple antibiotic ointment or other ointments as they can cause allergic reactions and do not prevent infection. Cover the wound with a Telfa (non-stick) dressing or gauze pad and a piece of paper tape. It is important to keep the wound covered. If you have sutures; the provider will inform you as to when the sutures need removed. Generally this is between 7-14 days depending on the area of the wound. If you had Liquid Nitrogen Therapy, the area may swell, form blisters and throb for 24 hours. The scabs that form should fall off within 14-21 days. It is normal to see blood in the blisters. If the blisters open, apply Vaseline until the area has healed. APPEARANCE: There may be swelling and bruising around the wound, especially near the eyes. For yourcomfort, you may apply warm, moist soaks to the bruises a few times a day, starting the third day after the procedure. You may also experience itching or ???pulling?? sensations around the wound as it heals. Healing time depends on the size, depth are of the wound. If you have concerns please callour office. If the procedure requires sutures, the suture line will be dark pink at first and the edges of the wound will be reddened. This will lighten up day by day and will be less tender. CONTACT THE OFFICE: ?? If the wound becomes increasingly red, warm to touch, increased pain, drainage with a foul odor,rapid swelling of the wound and/or if you develop a fever or chills, please call our office immediately or . documented in this encounter Progress Notes * Katelyn Hwang MD - 12/11/2010 1134 EDT I was the supervising physician and was present in the clinic during this visit. Note reviewed, patient was not seen by me. KATELYN HWANG MD * Daija Reddy PA-C - 12/11/2010 0903 EDT DERMATOLOGY OUTPATIENT CLINIC NOTE Chief Complaint Patient presents with ??? Procedure Basal cell carcinoma Subjective Patient presents for treatment of a basal cell carcinoma on her right vázquez. Her pathology showed a superficial and nodular basal cell carcinoma with positive deep and peripheral margins. In addition, she notes a new gritty bump lateral to her left eye. She states it looks similar to the skin cancer on her face. No other new skin lesions of concern today. Patient has had no interval health status change. No constitutional symptoms today or any other complaints referable to the skin. I have personally reviewed the Medical and Surgical histories, Review of Systems, Medications and Allergies, please see those sections of this encounter in the electronic chart. Objective There were no vitals taken for this visit. Well appearing female in no acute distress. Examination included the right vázquez and face. Findings included the following: - a 1 cm pink well healed biopsy scar on her right medial vázquez. There is no pearliness or nodularity. - 3 mm pink gritty papule on her left lateral eye - well healed linear scars on right yarsani and below right eye The remainder of the examination is unremarkable. Assessment 1. basal cell carcinoma, right vázquez 2. actinic keratosis, left lateral eye Plan 1. Discussed treatment options for basal cell carcinoma on her vázquez. 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 Clinically, there does not appear to be much evidence of residual basal cell carcinoma, so I recommended a tangential shave instead of a standard linear excision. This way she can get back to activities and this treatment is likely to remove all the remainingskin cancer. I told her there is a chance of getting a positive margin, and this would mean likely an excision at that time. She agrees with this plan and consent obtained. Procedure note follows. 2. The actinic keratosis on her left lateral eye was treated in two freeze thaw cycles. The expected healing course was discussed. 3. Follow up with [facility] in 6 months. Daija Reddy PA-C 12/11/2010 9:49 Dermatology Outpatient Clinic [facility] SHAVE / TANGENTIAL EXCISION PATIENT INFORMATION: Sandhya Laura Lomas : MRN: [id number] SURGEON: Daija Reddy PA-C PROCEDURE NOTE The indication, risks, benefits and alternatives to this procedure were discussed in detail with the patient and all questions were answered. Informed consent was obtained in writing. LESION A Procedure: Tangential Shave Indication: Diagnosis and removal Lesion Site: right medial vázquez Lesion Size 1.0 x 1.1 cm Patient position: supine Anesthesia: 1% lidocaine with epinephrine 1:100,000 local infiltration Prep: Povodine Iodine The lesion was prepped as above and locally anesthetized. The lesion was carefully examined and delineated. A margin of 2 to 3 mm was demarcated. Using a number 15 scalpel blade, the lesion was shaved from the dermis as a uniform wafer of tissue. Hemostasis was achieved with pressure and/or aluminum chloride. The wound was cleansed with alcohol and a sterile dressing was applied over Petrolatum ointment. Verbal and written wound care instructions were given. The specimen was submitted to pathology for histological evaluation. CRYOSURGERY PROCEDURE NOTE PATIENT INFORMATION: Sandhya Lomas [id number] DATE OF PROCEDURE: 12/11/2010 SURGEON: Daija Reddy PA-C CHIEF AIRLINE RADIO OPERATOR: none INDICATIONS: SITE/LESION TYPE/DIAGNOSIS: Lesion(s) A: Location: left lateral eyelid Lesion Type/Diagnosis: 1 actinic keratosis(es) Liquid nitrogen cryosurgery was applied to a total of 1 lesion(s) on the above stated locations. The expected reaction and healing course were discussed, as well as the possibility of incomplete resolution and/or permanent dyspigmentation. The indication, risks, benefits and alternatives to this pro cedure were discussed in detail with the patient and all questions were answered. Verbal wound care instructions were given. COMPLICATIONS: none NOTE: Daija Reddy PA-C 12/11/2010 10:05 * Regina Waldrop - 12/11/2010 0849 EDT Patient Education Topic: linear Excision Method: Handout, Demonstration and Verbal Taught to: Patient Barriers: None Outcomes: independent Signature: Regina Waldrop documented in this encounter Miscellaneous Notes * Scanned Note-Null - Harry, Vocational Rehabilitation Technician - 12/14/2010 1513 EDT documented in this encounter Plan of Treatment Upcoming Encounters Date Type Department Care Team (Late st Contact Info) Description 03/21/2024 8:30 EDT Appointment [facility] [address] [place] [address] 04/17/2024 10:50 EDT Appointment [facility] Endoscopy - [address] [phone] Marcellus Walsh MD 111 [facility], [facility] [address] [place] [phone] 05/01/2024 13:30 EDT Appointment [facility] Breast Imaging - [address] [phone] 05/15/2024 15:00 EST Telemedicine [facility] Gastroenterology - [address] [phone] Madhu Park MD PhD [address] [place] [address] [address] [place] [phone] 12/10/2024 11:30 EDT Office Visit [facility] Surgical Oncology - [address] [phone] Magnolia Blood PA-C [address] [place] [address], [facility] [address] [place] [phone] Scheduled Orders Name Type Priority Associated Diagnoses Orde r Schedule SURGICAL PATHOLOGY- ORDER ONLY Pathology Routine Basal cell carcinoma of lower extremity Ordered: 12/11/2010 documented as of this encounter Visit Diagnoses Diagnosis Basal cell carcinoma of lower extremity- Primary Basal cell carcinoma of skin of lower limb, including hip documented in this encounter Care Teams Tung Nut Grower Relationship Specialty Start Date End Date None, Provider PCP - General 07/09/10 12/22/10 documented as of this encounter
--- OUTSIDE RECORDS SUMMARY | 2024-03-20 21:38 | XMS_ITS | Encounter Summary ---
Author Organization [facility] Address [address] [place] [address] Care Team Providers Care Patternmaker Plastics Name Role Phone None, Provider Primary Care Provider Unavailabl e Encounter Details Date Type Department Care Team (Late st Contact Info) Description 07/16/2010 8:11 EST - 07/16/2010 23:59 EST Hospital Encounter [facility] [address] [place] [address] Josh Daniels MD MSc [address] [place] [phone] Discharge Disposition: Auto Discharge Social History Tobacco [...] 8:30 EDT Appointment [facility] [address] [place] [address] 04/17/2024 10:50 EDT Appointment [facility] Endoscopy - [address] [phone] Marcellus Walsh MD [address] [place] [phone] 05/01/2024 13:30 EDT Appointment [facility] Breast Imaging - [address] [phone] 05/15/2024 15:00 EST Telemedicine [facility] Gastroenterology - [address] [phone] Madhu Park MD PhD [address] [place] [phone] 12/10/2024 11:30 EDT Office Visit [facility] Surgical Oncology - [address] [phone] Magnolia Blood PA-C [address] [place] [address], [facility] [address] [place] [phone] documented as of this encounter Visit Diagnoses Not on filedocumented in this encounter Care Teams [employer]maker Plastics Relationship Specialty Start Date End Date None, Provider PCP - General 07/09/10 12/22/10 documented as of this encounter
--- OUTSIDE RECORDS SUMMARY | 2024-03-20 21:38 | XMS_ITS | Encounter Summary ---
Author Organization [facility] Address [address] [place] [address] Care Team Providers Care Returns Processor Name Role Phone Unknown, Provider Primary Care Provider Reason for Visit * Reason Onset Date Comments Follow-up 06/22/2010 6 MONTH F/U RIGH T BR LESION HIGH RISK BILATERAL US Encounter Details Date Type Department Care Team (Late st Contact Info) Description 06/22/2010 Orders Only [facility] Surgical Oncology - [address] [phone] Josh Daniels MD MSc [address] [place] [phone] Lump or mass in breast (Primary Dx) Social History Tobacco Use Types [...] 8:30 EDT Appointment [facility] [address] [place], [place] [phone] 04/17/2024 10:50 EDT Appointment [facility] Endoscopy - [address] [address] Marcellus Walsh MD 111 [facility] [address] [place] [phone] 05/01/2024 13:30 EDT Appointment [facility] Breast Imaging - [facility] [address] [facility] [address] [place], [place] [phone] 05/15/2024 15:00 EST Telemedicine [facility] Gastroenterology - [address] [phone] Madhu Park MD PhD 111 [facility] [address] [place] [phone] 12/10/2024 11:30 EDT Office Visit [facility] Surgical Oncology - [address] [phone] Magnolia Blood PA-C [address] [facility], [facility] 2 [place] [phone] documented as of this encounter Procedures Procedure Name Priority Date/Time Associated Diagnosis Comments RAD US BREAST BILATERAL - TWO BREASTS Routine 07/16/2010 10:15 EST Lump or mass in breast documented in this encounter Results * RAD US BREAST BILATERAL - TWO BREASTS (07/16/2010 10:15 EST) Anatomical Region Laterality Modality Other 07/16/2010 10:1 5 EST 07/16/2010 10:34 EST Narrative 07/16/2010 10:34 EST Bilateral high-risk breast ultrasound. Jul 16, 2010. Comparison is to mammogram of March 2010 and to previous breast sonography performed in May 2009 and November 2009 at which time numerous cysts, fibrocystic nodules and debris containing ducts were identified. Findings both breasts: Each breast was scanned in its entirety. There are numerous subcentimeter cysts in both breasts, some of which contain debris, fibrocystic nodules and areas of duct ectasia associated with internal debris. The previously noted more dominant solid-appearing mass in the right breast at 7oclock, 4.5 cm from the nipple, is again identified. It is somewhat smaller than on the most recent sonogram of November 2009. None of these findings is particularly concerning given their multiplicity and scattered, diffuse distribution. Both axillae were scanned and are unremarkable. Impression both breasts: BI-RADS category 2, benign. Recommendation: Routine screening mammogram in March 2011. The patient may wish to continue with annual high-risk screening sonography as well. Overall assessment: Benign. The results of the imaging studies were discussed with the patient by the network support technician. The patient will be notified of her/his breast imaging results via a lay letter from Radiology. Radiology will contact the patient directly regarding any findings which require additional imaging (Category 0) at this time. Procedure Note 07/16/2010 Bilateral high-risk breast ultrasound. Jul 16, 2010. Comparison is to mammogram of March 2010 and to previous breast sonography performed in May 2009 and November 2009 at which time numerous cysts, fibrocystic nodules and debris containing ducts were identified. Findings both breasts: Each breast was scanned in its entirety. There are numerous subcentimeter cysts in both breasts, some of which contain debris, fibrocystic nodules and areas of duct ectasia associated with internal debris. The previously noted more dominant solid-appearing mass in the right breast at 7oclock, 4.5 cm from the nipple, is again identified. It is somewhat smaller than on the most recent sonogram of November 2009. None of these findings is particularly concerning given their multiplicity and scattered, diffuse distribution. Both axillae were scanned and are unremarkable. Impression both breasts: BI-RADS category 2, benign. Recommendation: Routine screening mammogram in March 2011. The patient may wish to continue with annual high-risk screening sonography as well. Overall assessment: Benign. The results of the imaging studies were discussed with the patient by the network support technician. The patient will be notified of her/his breast imaging results via a lay letter from Radiology. Radiology will contact the patient directly regarding any findings which require additional imaging (Category 0) at this time. Josh Daniels MD, MSc IMG US ORDERABLES documented in this encounter Visit Diagnoses Diagnosis Lump or mass in breast- Primary documented in this encounter Care Teams Returns Processor Relationship Specialty Start Date End Date Unknown, Provider, PCP - General 10/23/09 07/08/10 documented as of this encounter
--- OUTSIDE RECORDS SUMMARY | 2024-03-20 21:38 | XMS_ITS | Encounter Summary ---
Author Organization [facility] Address [address] [place] [address] Care Team Providers Care Blind Lacer Name Role Phone None, Provider Primary Care Provider Unavailabl e Encounter Details Date Type Department Care Team (Late st Contact Info) Description 05/20/2009 Orders Only [facility] Surgical Oncology - [facility] [address] [place], [place] [address] Josh Daniels MD [address] [phone] Social History Tobacco Use Types Packs/Day Years [...] 8:30 EDT Appointment [facility] [address] [place], [place] [phone] 04/17/2024 10:50 EDT Appointment [facility] Endoscopy - [facility] [address] [place], [place] [phone] Marcellus Walsh MD 111 [facility], Level 5 [place] [phone] 05/01/2024 13:30 EDT Appointment [facility] Breast Imaging - [facility] [address] [address] 05/15/2024 15:00 EST Telemedicine [facility] Gastroenterology - [address] [phone] Madhu Park MD PhD 111 [facility], [facility] 5 [place] [phone] 12/10/2024 11:30 EDT Office Visit [facility] Surgical Oncology - [facility] [address] [place], [place] [phone] Magnolia Blood PA-C 111 [facility], [facility] 2 [place] [address] documented as of this encounter Procedures Procedure Name Priority Date/Time Associated Diagnosis Comments RAD US BREAST BILATERAL - TWO BREASTS 05/20/2009 8:55 EST documented in this encounter Results * RAD US BREAST BILATERAL - TWO BREASTS (05/20/2009 8:55 EST) Anatomical Region Laterality Modality Other 05/20/2009 8:55 EST 05/22/2009 7:59 EST Narrative 05/22/2009 7:59 EST Procedure: Bilateral breast ultrasound 05/20/2009. History: Multiple palpable lumps, dense breast tissue. Ultrasound only requested by Dr. Daniels. Comparison: Bilateral breast ultrasound at the [facility] 05/13/2009 and 12/19/2007, bilateral mammography 01/13/2009, 12/19/2007 and yearly mammograms dating back to 2004. Right breast findings: The entire breast was scanned. A few simple dilated ducts are seen in the retroareolar region. Multiple small simple and slightly complex cysts are seen throughout the breast. The only finding of note is that of an isoechoic probably intraductal mass or collection of debris at 7:00, 4.5 cm from the nipple measuring 9 x 13 x 8 mm. This is compressible, though movement of the internal contents cannot be documented. Six month followup ultrasound of this finding is recommended. This finding was not documented on prior ultrasounds. The axilla was normal. Left breast findings: The entire breast was scanned. Multiple small simple cysts are appreciated, the largest being at 3:30, 3 cm from the nipple measuring 17 x 17 x 6 mm. There is a dilated duct at 2:00, 2 cm from the nipple, measuring 6 mm in diameter, containing homogeneous low level echoes and no blood flow. This is a debris-filled duct which has been documented on both prior ultrasounds, and is of no concern. The axilla is unremarkable. Impression right breast: BI-RADS category 3-probably benign. 1. Six month followup ultrasound is recommended for one compressible probably intraductal lesion at 7:00, 4.5 cm from the nipple. 2. Yearly screening mammography is due in January,. Impression left breast: BI-RADS category 2-benign. 1. Stable dilated duct with debris and simple cysts are noted. 2. Yearly screening mammography is due in January,. 3. ??Results and recommendations were discussed with the patient by the brass pourer at the time of the examination. Overall assessment: Probably benign. The patient will also be notified of her/his breast imaging results via a lay letter from Radiology. Radiology will contact the patient directly regarding any findings which require additional imaging (Category 0) at this time. Procedure Note 05/22/2009 Procedure: Bilateral breast ultrasound 05/20/2009. History: Multiple palpable lumps, dense breast tissue. Ultrasound only requested by Dr. Daniels. Comparison: Bilateral breast ultrasound at the [facility] 05/13/2009 and 12/19/2007, bilateral mammography 01/13/2009, 12/19/2007 and yearly mammograms dating back to 2003. Right breast findings: The entire breast was scanned. A few simple dilated ducts are seen in the retroareolar region. Multiple small simple and slightly complex cysts are seen throughout the breast. The only finding of note is that of an isoechoic probably intraductal mass or collection of debris at 7:00, 4.5 cm from the nipple measuring 9 x 13 x 8 mm. This is compressible, though movement of the internal contents cannot be documented. Six month followup ultrasound of this finding is recommended. This finding was not documented on prior ultrasounds. The axilla was normal. Left breast findings: The entire breast was scanned. Multiple small simple cysts are appreciated, the largest being at 3:30, 3 cm from the nipple measuring 17 x 17 x 6 mm. There is a dilated duct at 2:00, 2 cm from the nipple, measuring 6 mm in diameter, containing homogeneous low level echoes and no blood flow. This is a debris-filled duct which has been documented on both prior ultrasounds, and is of no concern. The axilla is unremarkable. Impression right breast: BI-RADS category 3-probably benign. 1. Six month followup ultrasound is recommended for one compressible probably intraductal lesion at 7:00, 4.5 cm from the nipple. 2. Yearly screening mammography is due in January,. Impression left breast: BI-RADS category 2-benign. 1. Stable dilated duct with debris and simple cysts are noted. 2. Yearly screening mammography is due in January,. 3. Results and recommendations were discussed with the patient by the brass pourer at the time of the examination. Overall assessment: Probably benign. The patient will also be notified of her/his breast imaging results via a lay letter from Radiology. Radiology will contact the patient directly regarding any findings which require additional imaging (Category 0) at this time. Josh Daniels MD MSc IMG US ORDERABLES documented in this encounter Visit Diagnoses Not on filedocumented in this encounter Care Teams Blind Lacer Relationship Specialty Start Date End Date None, Provider PCP - General 12/19/08 10/22/09 documented as of this encounter
--- OUTSIDE RECORDS SUMMARY | 2024-03-20 21:38 | XMS_ITS | Encounter Summary ---
Author Organization [facility] Address [address] [place] [address] Care Team Providers Care Machine Woodworking Sander Name Role Phone Unavailable Primary Care Provider Unavailabl e Encounter Details Date Type Department Care Team (Latest Contact Info) Description 12/24/2003 9:21 EDT - 12/24/2003 11:59 EDT Hospital Encounter [address] [address] Alexi Whitlock MD [address] [place] [phone] Discharge Disposition: Auto Discharge Social History Tobacco [...] EDT Appointment [facility] [address] [place] [address] 04/17/2024 10:50 EDT Appointment [facility] Endoscopy - [facility] [address] [place], [place] [address] Marcellus Walsh MD 111 [facility], [address] 5 [place] [phone] 05/01/2024 13:30 EDT Appointment [facility] Breast Imaging - [facility] S [place] [address] [place], [place] [address] 05/15/2024 15:00 EST Telemedicine [facility] Gastroenterology - [address] [phone] Madhu Park MD PhD 111 [facility], [address] [place] [phone] 12/10/2024 11:30 EDT Office Visit [facility] Surgical Oncology - [address] [phone] Magnolia Blood, PA-C 111 [facility], [address] [place] [phone] documented as of this encounter Procedures Procedure Name Priority Date/Time Associated Diagnosis Comments CHEST PA AND LATERAL Routine 12/24/2003 10:11 EDT URINALYSIS WITH MICROSCOPIC IF POSITIVE Routine 12/24/2003 9:50 EDT UA REFLEX Routine 12/24/2003 9:50 EDT COMPLETE BLOOD COUNT AND DIFFERENTIAL Routine 12/24/2003 9:48 EDT BILIRUBIN DIRECT/INDIRECT Routine 12/24/2003 9:48 EDT ZZCA 125 Routine 12/24/2003 9:48 EDT CEA Routine 12/24/2003 9:48 EDT LIPID PROFILE (INCLUDES CHOLESTEROL, TRIGLYCERIDES, HDL, LDL) Routine 12/24/2003 9:48 EDT COMPREHENSIVE METABOLIC PANEL (CMP) Routine 12/24/2003 9:48 EDT documented in this encounter Results * CHEST PA AND LATERAL (12/24/2003 10:11 EDT) Anatomical Region Laterality Modality Other 12/24/2003 10:1 1 EDT Narrative 03/21/2009 15:29 EDT COUGH / WHEEZE ? R/O ??TUMOR CHEST PA AND LATERAL: 12/24/2003 FINDINGS: The heart, lungs, mediastinum, and bones appear normal. /tns Procedure Note Jovany Nascimento MD - 03/21/2009 COUGH / WHEEZE R/O TUMOR CHEST PA AND LATERAL: 12/24/2003 FINDINGS: The heart, lungs, mediastinum, and bones appear normal. /tns Alexi Whitlock MD IMG DIAGNOSTIC IMAGI NG ORDERABLES * UA REFLEX (12/24/2003 9:50 EDT) UA Billing Microscopic not indicated. [facility] 12/24/2003 9:50 EDT 12/24/2003 9:57 EDT Alexi Whitlock MD URINALYSIS ORDERABLE S [facility] [address] [place] [address] * (ABNORMAL) URINALYSIS (12/24/2003 9:50 EDT) Color, UA Straw [facility] Clarity, UA Clear [facility] Glucose, UA Norm NORM [facility] Bilirubin, UA Neg NEG [facility] Ketones, UA Neg NEG [facility] Specific Cobb, Urine <1.005(L) 1.005 - 1.02 [facility] Blood, UA Neg NEG [facility] pH, UA 7.0 5.0 - 9.0 [facility] Protein, UA Neg NEG [facility] Urobilinogen, UA Norm NORM mg/dL [facility] Nitrite, UA Neg NEG [facility] Leuk Esterase Neg NEG [facility] 12/24/2003 9:50 EDT 12/24/2003 9:57 EDT Alexi Whitlock MD URINALYSIS ORDERABLE S Performing Organization Address [facility] de Phone Number [facility] [address] [place] [address] * LIPID PROFILE (INCLUDES CHOLESTEROL, TRIGLYCERIDES, HDL, LDL) (12/24/2003 9:48 EDT) Cholesterol 139 mg/dl [facility] Comment: Desirable:<200 Borderline:200-239 High Risk:>oo=408 Triglycerides 93 35 - 160 mg/dl [facility] HDL 60 mg/dl [facility] Comment: Highly Desirable:>60 Desirable:35-60 High Risk:<35 LDL, Calculated 60 mg/dl [facility] Comment: Desirable:<130 Borderline:130-159 High Risk:>ok=326 Chol/HDL Ratio 2.3 [facility] 12/24/2003 9:48 EDT 12/24/2003 9:57 EDT Alexi Whitlock MD CHEMISTRY & BLOOD GA S ORDERABLES Performing Organization Address [facility] Phone Number [facility] [address] [place] [address] * BILIRUBIN DIRECT/INDIRECT (12/24/2003 9:48 EDT) Conjugated Bilirubin 0.0 0.0 - 0.3 mg/dl [facility] Unconjugated Bilirubin 0.6 0.1 - 1.1 mg/dl [facility] 12/24/2003 9:48 EDT 12/24/2003 9:57 EDT Alexi Whitlock MD CHEMISTRY & BLOOD GA S ORDERABLES Performing Organization Address [facility] Phone Number [facility] [address] [place] [address] * (ABNORMAL) COMPREHENSIVE METABOLIC PANEL (12/24/2003 9:48 EDT) Potassium 4.4 3.5 - 5.0 mEq/L [facility] Sodium 139 136 - 145 mEq/L [facility] Chloride 103 96 - 110 mEq/L [facility] CO2 30 24 - 32 mEq/L [facility] Total Alkaline Phosphatase 58 38 - 126 U/L [facility] Bilirubin, Total 0.5 0.2 - 1.3 mg/dl [facility] AST 33 15 - 46 U/L [facility] ALT 29 9 - 52 U/L [facility] Albumin 4.3 3.4 - 4.9 g/dl [facility] Total Protein 6.9 6.5 - 8.0 g/dl [facility] Creatinine 0.6(L) 0.7 - 1.5 mg/dl [facility] BUN 10 10 - 26 mg/dl [facility] Calcium 9.0 8.5 - 10.5 mg/dl [facility] Calculated Calcium 9.1 8.5 - 10.5 mg/dl [facility] Glucose, Serum 80 70 - 110 mg/dl [facility] Albumin/Globulin Ratio 1.7 [facility] 12/24/2003 9:48 EDT 12/24/2003 9:57 EDT Alexi Whitlock MD CHEMISTRY & BLOOD GA S ORDERABLES Performing Organization Address City/State/[facility] Co de Phone Number [facility] [address] [place] [address] * CEA (12/24/2003 9:48 EDT) CEA <0.5 ng/ml [facility] Comment: % Distribution of CEA (ng/ml) 0-2.5 in 98.2% of non-smokers and 87.3% of smokers 2.6-5.0 in 1.8% of non-smokers and 8.0% of smokers 5.1-10.1 in 4.7% of smokers Serum CEA concentration should not be interpreted as absolute evidence for the presence or absence of malignant disease. Assayed utilizing [employer] chemiluminescent technology. Values obtained by using different assay methods cannot be used interchangeably. 12/24/2003 9:48 EDT 12/24/2003 9:57 EDT Alexi Whitlock MD CHEMISTRY & BLOOD GA S ORDERABLES [facility] [address] [place] [address] * HEMAGRAM AND DIFFERENTIAL (12/24/2003 9:48 EDT) WBC 4.30 4.0 - 12.4 K/cmm [facility] RBC 3.99 3.86 - 5.04 M/cmm [facility] Hemoglobin 13.1 11.6 - 15.2 gm/dl [facility] HCT 38.0 34.9 - 44.4 % [facility] MCV 95 81 - 98 fl [facility] MCH 32.9 26.7 - 33.3 pg [facility] MCHC 34.6 32.1 - 35.9 gm/dl [facility] PLT 204 141 - 320 K/cmm [facility] RDW-CV 12.4 11.7 - 14.6 % [facility] % Neutrophils 51.8 45.5 - 79.7 % [facility] % Lymphocytes 35.9 15.0 - 46.8 % [facility] % Monocytes 8.1 1.8 - 12.0 % [facility] % Eosinophils 3.7 0.6 - 6.9 % [facility] % Basophils 0.5 0.2 - 1.4 % [facility] ABS Neutrophils 2.22 2.20 - 8.85 K/cmm [facility] ABS Lymphs 1.54 1.09 - 3.30 K/cmm [facility] ABS Monocytes 0.35 0.1 - 0.8 K/cmm [facility] ABS Eosinophils 0.16 0.03 - 0.61 K/cmm [facility] ABS Basophils 0.02 0.01 - 0.11 K/cmm [facility] Type of Diff: Automated [facility] 12/24/2003 9:48 EDT 12/24/2003 9:57 EDT Alexi Whitlock MD PACKAGES & DNA PROBE ORDERABLES Performing Organization Address [facility] Co de Phone Number [facility] [address] [place] [address] * CA 125 (12/24/2003 9:48 EDT) CA 125 20 0 - 35 U/ml [facility] Comment: Serum CA125 concentrations should not be interpreted as absolute evidence for the presence or absence of malignant disease. Assayed utilizing [employer] technology. Values obtained by using different assay methods cannot be used interchangeably. [employer] methodology in use 03/18/03. 12/24/2003 9:48 EDT 12/24/2003 9:57 EDT Alexi Whitlock MD CHEMISTRY & BLOOD GA S ORDERABLES Performing Organization Address [facility] Co de Phone Number [facility] [address] [place] [address] documented in this encounter Visit Diagnoses Not on filedocumented in this encounter
--- OUTSIDE RECORDS SUMMARY | 2024-03-20 21:38 | XMS_ITS | Encounter Summary ---
Author Organization [facility] Address [address] [place] [address] Care Team Providers Care Parts Back Counter Man Name Role Phone Unknown, Provider Primary Care Provider Reason for Visit * Reason Comments Follow-up History of BCC of ri ght mormonism and right nasal sidewall Actinic Keratosis Face Herpes Recurrent herpes lab william Encounter Details Date Type Department Care Team (Late st Contact Info) Description 04/29/2010 15:00 EDT Office Visit [facility] Dermatology 5th [address] [phone] Frederick Romero MD [address] [place] [address], [address] [place] [address] Personal history of other malignant neoplasm of skin (Primary Dx) Discharge Disposition: Auto Discharge Social [...] * Patient Instructions* Frederick Romero MD - 04/29/2010 15:15 EDT Please follow up with Justine Ramesh PA-C for ongoing skin surveillance exams. You may call to schedule follow up with Dr. Romero as needed with any questions or concerns about your surgical site should they arise. Directions for using topical Flurouracil for Actinic Keratoses Actinic Keratoses are the result of sun damage and are visible as rough, red gomez. Carac??? (flurouracil) is chemotherapy which kills the precancerous cells but doesn???t hurt normal skin cells. Themedication is generally quite safe, as only a very small amount is absorbed by the body, however, it should not be used if you are (or trying to be) or nursing. You can find additional inform ation in the package insert with your prescription. 1. Apply the cream as you would a moisturizer - i.e., rub it in. If you can see it on your skin, you???ve put on too much. 2. Wash your hands after applying. 3. Apply the cream to the general areas affected (i.e., the whole forehead or cheeks) not just to specific spots. Additional spots often ???light up?? during treatment - this is expected and just means the medicine ???found?? some abnormal cells. 4. Avoid putting the medicine on your chin or in facial folds - along the side of the nose or around the mouth. It can be irritating and cause a red rash in those areas. 5. Usually after a few days of using the cream your keratoses will start turning red. Later the spots will become crusty and my even ooze a little. Sometimes people may react quicker and more severely - if this is the case you may need to use the medication longer. This can be decided by checking with your provider - by phone or in the clinic. 6. During treatment your skin might feel somewhat uncomfortable, but it should not be painful (if you are experiencing pain, please stop the medicine and call your provider) 7. For irradiation or discomfort, the skin can be treated with a wet compress for 10 minutes followed by a liberal application of petroleum jelly. This can be repeated several times a day. Hydrocortisone 1% cream (available without a prescription) can also be used once or twice a day to reduce redness and inflammation. If needed, your doctor may also give you a prescription for a stronger cortisone cream. 8. Sunlight will make the treated spots redder and inflamed, so try to minimize sun exposure while using his medication. 9. Please feel free to call your dermatology provider if you are unsure about how to use the medication or about the reaction you are experiencing: [phone]. 10. After you stop the medicine the treated spots gradually fade from red to pink and finally back to normal skin color. Often this takes a few months. You can conceal the redness with makeup. Very rarely, redness or pigmentation may last longer. documented in this encounter Ordered Prescriptions Prescription Sig Dispensed Refills Start Date End Da te valacyclovir (VALTREX) 1 g tablet Take 0.5 Tabs by mouth 2 times daily. For three days at the earliest onset of symptoms 18 Tab 1 04/29/2010 documented in this encounter Discharge Disposition Disposition Code Departure Means Destination Auto Discharge documented in this encounter Progress Notes * Frederick Romero MD - 04/29/2010 0862 EDT Mohs Follow Up Note Chief Complaint Patient presents with ??? Follow-up History of BCC of right mormonism and right nasal sidewall SUBJECTIVE Sandhya is approximately 6 months status post Mohs surgery for a BCC on the right mormonism and a BCC of the right nose and she returns today for follow up. She has no concerns about the surgical sites and notes that they have healed up nicely. She denies a history of new or changing skin lesions. Shewould like to be seen at [facility] for ongoing skin surveillance exams and asks if I can set this up forher. She has a history of recurrent herpes labialis and asks for medication to treat this. She was previously prescribed Carac by Justine Ramesh PA-C for actinic keratoses of the face and asks if I think this is a good idea. She has no other concerns. OBJECTIVE Patient is a well appearing 49 y.o. year old female sitting comfortable on the examination table. Cutaneous examination of the face is performed. There is a well healed, soft supple surgical scar on the right mormonism and right nose without nodularity, ulceration or other concerning signs of recurrence. Palpation of the preauricular, postauricular, parotid, submental, submandibular, occipital and cervical lymph nodes is unremarkable. There are no cutaneous lesions worrisome for malignancy. On the mormonism, forehead, nose and lip there are approximately 20 to 30 pink and gritty hyperkeratotic macules. ASSESSMENT 1. Well healed with no evidence of recurrence 2. No evidence of new skin cancers on the head and neck 3. Multiple early actinic keratoses 4. History of recurrent herpes labialis PLAN 1. Patient education: The importance of sun avoidance, sun protection and regular self skin examinations for the prevention and detection of new skin cancers reviewed. Vitamin D supplementation encouraged for health maintenance particularly in the winter and while practicing good photoprotection techniques. I discussed with Ms. Lomas that while she is at low risk for recurrence of her skin cancer she is at risk for the development of new additional skin cancers elsewhere an for that reason regular ongoing follow up for skin surveillance examinations is encouraged. 2. Valtrex 500mg po bid x 3 days prn for recurrent herpes labialis. 3. Recommended carac topically qhs x 4 weeks. Patient educational handout provided. 4. Patient will follow up with a general derm provider in our clinic as per her request for ongoingskin surveillance examinations and will return to see me as needed. FREDERICK ROMERO MD 04/29/2010 15:13 * Bethany Hernandez - 04/29/2010 1506 EDT A complete 12 point review of systems was obtained and reviewed. All systems are negative. Bethany Hernandez 04/29/2010 15:06 FREDERICK ROMERO MD 04/29/2010 15:13 documented in this encounter Plan of Treatment Upcoming Encounters Date Type Department Care Team (Late st Contact Info) Description 03/21/2024 8:30 EDT Appointment [facility] [address] [place], [place] [phone] 04/17/2024 10:50 EDT Appointment [facility] Endoscopy - [facility] [address] [place], [place] [address] Marcellus Walsh MD 111 [facility], [address] [place] [address] 05/01/2024 13:30 EDT Appointment [facility] Breast Imaging - [facility] [address] [place] [address] [place], [place] [phone] 05/15/2024 15:00 EST Telemedicine [facility] Gastroenterology - [address] [phone] Madhu Park MD PhD [address] [place] [address], [address] [place] [phone] 12/10/2024 11:30 EDT Office Visit [facility] Surgical Oncology - [address] [phone] Magnolia Blood, PA-C [address] [place] [address], [facility] 2 [place] [phone] documented as of this encounter Visit Diagnoses Diagnosis Personal history of other malignant neoplasm of skin- Primary documented in this encounter Care Teams Parts Back Counter Man Relationship Specialty Start Date End Date Unknown, Provider, PCP - General 10/23/09 07/08/10 documented as of this encounter
--- OUTSIDE RECORDS SUMMARY | 2024-03-20 21:38 | XMS_ITS | Encounter Summary ---
Author Organization [facility] Address [address] [place] [address] Care Team Providers Care Rounding Machine Tender Name Role Phone None, Provider Primary Care Provider Unavailabl e Encounter Details Date Type Department Care Team (Late st Contact Info) Description 05/13/2009 Orders Only [facility] Surgical Oncology - [facility] [address] [place], [place] [phone] Josh Daniels MD [address] [phone] Social History Tobacco Use Types Packs/Day Years [...] 8:30 EDT Appointment [facility] Ultrasound [address] [place], [place] [address] 04/17/2024 10:50 EDT Appointment [facility] Endoscopy - [facility] [address] [place], [place] [address] Marcellus Walsh MD 111 [facility], Level 5 [place] [phone] 05/01/2024 13:30 EDT Appointment [facility] Breast Imaging - [facility] [address] [address] 05/15/2024 15:00 EST Telemedicine [facility] Gastroenterology - [address] [phone] Madhu Park MD PhD 111 [facility], [facility] 5 [place] [phone] 12/10/2024 11:30 EDT Office Visit [facility] Surgical Oncology - [address] [phone] Magnolia Blood PA-C 111 [facility], [facility] 2 [place] [phone] documented as of this encounter Procedures Procedure Name Priority Date/Time Associated Diagnosis Comments [facility] BREAST-[facility] ONLY 05/13/2009 16:41 EST documented in this encounter Results * [facility] US BREAST (05/13/2009 16:41 EST) Anatomical Region Laterality Modality Other 05/13/2009 16:4 1 EST Narrative 05/13/2009 16:41 EST See Notes Tab. Procedure Note 05/13/2009 See Notes Tab. Josh Daniels MD MSc IMG US ORDERABLES documented in this encounter Visit Diagnoses Not on filedocumented in this encounter Care Teams Rounding Machine Tender Relationship Specialty Start Date End Date None, Provider PCP - General 12/19/08 10/22/09 documented as of this encounter
--- OUTSIDE RECORDS SUMMARY | 2024-03-20 21:38 | XMS_ITS | Encounter Summary ---
Author Organization [facility] Address [address] [place] [address] Care Team Providers Care Extruder Tender Name Role Phone Unavailable Primary Care Provider Unavailabl e Encounter Details Date Type Department Care Team (Late st Contact Info) Description 05/17/2007 8:48 EST Hospital Encounter [address] [address] Clarice Murcia MD [address] [place] [phone] Social History Tobacco Use Types Packs/Day [...] Description 03/21/2024 8:30 EDT Appointment Karin Saul [address] [place] [address] 04/17/2024 10:50 EDT Appointment [facility] Endoscopy - [address] [address] Marcellus Walsh MD [address] [place] [address] 5 [place] [phone] 05/01/2024 13:30 EDT Appointment [facility] Breast Imaging - [address] [phone] 05/15/2024 15:00 EST Telemedicine [facility] Gastroenterology - [address] [address] Madhu Park MD PhD [address] [place] [address] 5 [place] [phone] 12/10/2024 11:30 EDT Office Visit [facility] Surgical Oncology - [address] [phone] Magnolia Blood, PA-C [address] [place] [address], [facility] 2 [place] [phone] documented as of this encounter Visit Diagnoses Not on filedocumented in this encounter
--- OUTSIDE RECORDS SUMMARY | 2024-03-20 21:38 | XMS_ITS | Encounter Summary ---
Author Organization [facility] Address [address] [place] [address] Care Team Providers Care School Bus Inspector Name Role Phone Unknown, Provider MD Primary Care Provider None, Provider Primary Care Provider Unavailabl e Encounter Details Date Type Department Care Team (Late st Contact Info) Description 11/28/2006 Results Only [facility] - Maple conversion [address] [place] [address] Agnieszka Simpson MD Social History Tobacco Use [...] 8:30 EDT Appointment Karin Danielle Ultrasound [address] [place] [address] 04/17/2024 10:50 EDT Appointment [facility] Endoscopy - [facility] [address] [place] [address] Marcellus Walsh MD [address] [facility], Level [address] [place] [phone] 05/01/2024 13:30 EDT Appointment [facility] Breast Imaging - [address] [address] 05/15/2024 15:00 EST Telemedicine [facility] Gastroenterology - [facility] [address] [place], [place] [phone] Madhu Park MD PhD [address] [facility], Level [address] [place] [phone] 12/10/2024 11:30 EDT Office Visit [facility] Surgical Oncology - [facility] [address] [place], [place] [phone] Magnolia Blood PA-C [address] [facility], Level [address] [place] [phone] documented as of this encounter Procedures Procedure Name Priority Date/Time Associated Diagnosis Comments HPV DETECTION, HIGH RISK TYPES Routine 11/28/2006 7:54 EDT CYTOPATHOLOGY Routine 11/28/2006 0:00 EDT documented in this encounter Results * HUMAN PAPILLOMA VIRUS DNA TEST (11/28/2006 7:54 EDT) Specimen Description Cervix, ThinPrep vial [facility] Result Negative for HPV types 16, 18, 31, 33, 35, 39, 45, 51, 52, 56, 58, 59, and 68. [facility] Report Status Final [id number] [facility] 11/28/2006 7:54 EDT 12/01/2006 7:54 EDT Agnieszka Simpson MD MICROBIOLOGY - GENERAL ORDERABLES [facility] [address] [place] [address] * CYTOPATHOLOGY (11/28/2006 0:00 EDT) Pathology Report: CYTOPATHOLOGY REPORT Reports generated via electronic interface contain original data; however they are lacking the format of the original report. Caution should be taken when reading/interpreti ng unformatted reports. Name: ? SANDHYA BARRETT ? Accession #: ? [id number] : ? 1960 (Age: 46) ??F ?Collect Date: ? 11/28/2006 Location: ? [facility] ? Receive Date: ? 11/28/2006 Provider: ?AGNIESZKA SIMPSON MD Copy to: ? Specimen/Source: ?ThinPrep Pap Test, Cervix/Endocervix, processed on [employer] ThinPrep Imaging System, with manual evaluation Last Menstrual Period: ? 11/14/06 Other: ? Additional clinical information: No Tzone 2005 HPVDX - HPV testing requested regardless of diagnosis on current ThinPrep Pap test. ? SPECIMEN ADEQUACY ? Satisfactory for Evaluation - transformation zone component present GENERAL CATEGORIZATION ? Negative for Intraepithelial Lesion or Malignancy ? Document reviewed and electronically signed by: ? SMITH Myers(ASCP) ? Report Date: ??11/30/2006 13:45 End of Report [facility] 11/28/2006 11/28/2006 Agnieszka Simpson MD PATHOLOGY OR DERABLES [facility] [address] [place] [address] documented in this encounter Visit Diagnoses Not on filedocumented in this encounter Care Teams School Bus Inspector Relationship Specialty Start Date End Date Unknown, Provider, PCP - General 10/23/09 07/08/10 None, Provider PCP - General 12/19/08 10/22/09 documented as of this encounter
--- OUTSIDE RECORDS SUMMARY | 2024-03-20 21:38 | XMS_ITS | Encounter Summary ---
Author Organization [facility] Address [address] [place] [address] Care Team Providers Care Barista Name Role Phone None, Provider Primary Care Provider Unavailabl e Reason for Visit * Reason Comments Follow-up skin check bumps on right vázquez Encounter Details Date Type Department Care Team (Late st Contact Info) Description 11/13/2010 11:00 EDT Office Visit [facility] Dermatology 5th Floor [facility] [address] [place] [address] Kaitna Harper PA [address] [phone] Neoplasm of unspecified nature of bone, soft tissue, and skin (Primary Dx); Actinic keratosis; Diffuse photodamage of skin; Other seborrheic keratosis; History of basal cell carcinoma Social History Tobacco Use Types Packs/Day Years Used Date Smoking Tobacco: Never Alcohol Use Standard Drinks/Week Comments Yes 8.3 (1 standard drink = 0.6 oz p ure alcohol) Sex and Gender Information Value Date Recorded Sex Assigned at Not on file Gender Identity Female 05/16/2019 10:23 EST Sexual Orientation Not on file documented as of this encounter Patient Instructions * Patient Instructions* Katina Ghosh PA - 11/13/2010 11:12 EDT DERMATOLOGY - WOUND CARE INSTRUCTIONS The [...] If you have concerns please callour office. CONTACT THE OFFICE: ?? If the wound becomes increasingly red, warm to touch, increased pain, drainage with a foul odor,rapid swelling of the wound and/or if you develop a fever or chills, please call our office immediately or . documented in this encounter Progress Notes * Katina Ghosh PA - 11/13/2010 1119 EDT The attending physician was available for this visit Problem Encounter Diagnoses Name Primary? Actinic keratosis ??? Diffuse photodamage of skin ??? Other seborrheic keratosis ??? History of basal cell carcinoma SUBJECTIVE Chief Complaint: Chief Complaint Patient presents with ??? Follow-up skin check bumps on right vázquez Ms. Lomas is a 50 y.o. female who presents for follow up for the above stated complaint. Last Dermatology office visit: 2009 having been followed by Dr. Romero this is her initial visit w/me The patient has not noticed any scabbing, bleeding changing growths that she is concerned about. The patient admits to not wearing sunscreen as diligently as she knows she should but tries to check her self on a somewhat regular basis. She is here for a full skin exam with the above stated history. Please note the past, present, family medical and social histories were reviewed by me today as documented in [facility]. In addition, patient complains of: Skin Lesion Patient complains of a skin lesion of the right vázquez. The lesion has been present for 1 year. Lesion has not changed in 1 year. Symptoms associated with the lesion are: none. Patient denies increasing diameter, increasing thickness, itching, bleeding, pain, drainage. OBJECTIVE VS: There were no vitals taken for this visit. Physical Exam: Complete Cutaneous Exam On physical examination, in general, Ms. Lomas is a female who is well-groomed, slender, well-nourished and appears stated age and is is in no apparent distress. She is alert and oriented to person,place and time. She has Le type II skin. Complete cutaneous examination of the head, including the scalp and face, neck, back, chest, including breasts and axillae, abdomen, external genitalia, groin, buttocks, intertriginous areas, and all four extremities were examined. The examination was normal with the addition of the following comments: Diffusely scattered over sun exposed surfaces the patient has numerous hypo and hyper pigmented macules as well as some stuck on papules scattered over the body. Well healed surgical scars on the right baptism and nasal bridge w/out nodularity On the left superior forehead she has a single gritty macule On the right vázquez she has a pearly 8mm to 1 cm plaque - suspicious for a BCC ASSESSMENT AND PLAN Sandhya was seen today for follow-up. Diagnoses and associated orders for this visit: Neoplasm NOS right vázquez r/o BCC vs lichenoid keratosis - Surgical Pathology Recommended shave biopsy of the neoplasm NOS on the vázquez SHAVE BIOPSY PROCEDURE NOTE PATIENT INFORMATION: Sandhya Lomas [id number] 1960 DATE OF PROCEDURE: 11/13/2010 SURGEON: URI Segovia, PA The indication, risks, benefits and alternatives to this procedure were discussed in detail with the patient and all questions were answered. Informed consent was obtained in writing. 1% lidocaine with epinephrine 1:200,000 local infiltration local anesthetic used after prepping the area with an alcohol wipe And the specimen was removed by tangential shave using a Dermablade. Hemostasis was achieved with pressure and/or aluminum Chloride. The wound was cleansed with alcohol and a sterile dressing was applied over petrolatum ointment. The specimen was submitted to pathology for histological evaluation. This was performed with good results and without adverse event wound care instructions given verbally and written. We will inform the patient of the biopsy results with in the next two weeks. Actinic keratosis x1 left forehead Recommended LN2 to the above stated AK CRYOSURGERY PROCEDURE NOTE PATIENT INFORMATION: Sandhya Lomas [id number] 1960 [id number] 1960 DATE OF PROCEDURE: 11/13/2010 SURGEON: URI Segovia, PA Liquid nitrogen cryosurgery was applied to a [...] wound care instructions were given. COMPLICATIONS: none Diffuse photodamage of skin Other seborrheic keratosis History of basal cell carcinomas right nasal bridge and right baptism s/p Mohs w/out evidence of local recurrence Patient education and reassurance. The importance of sunscreen use, the ABCDE's of melanoma discussed as well as the importance of the ugly duckling rule and self skin exams at least monthly or everyother month of which the patient showed a good understanding. The patient will follow up in 6 months for a skin check or in the interim should problems arise. URI Segovia, PA@11/13/2010@11:13 * Ambreen Briceno - 11/13/2010 1059 EDT A complete 12 point review of systems was obtained and reviewed. All systems are negative except for: night sweats. Ambreen Briceno 11/13/2010 10:59 URI Segovia, PA 11/13/2010 11:09 Patient Education Topic: Wound care Method: Verbal Taught to: Patient Barriers: None Outcomes: Independent Signature: Ambreen Briceno 11/13/2010 11:11 documented in this encounter Miscellaneous Notes * Scanned Note-Null - Harry Padded Products Inspector Trimmer - 11/17/2010 1552 EDT documented in this encounter Plan of Treatment Upcoming Encounters Date Type Department Care Team (Late st Contact Info) Description 03/21/2024 8:30 EDT Appointment [facility] Ultrasound [address] [place] [address] 04/17/2024 10:50 EDT Appointment [facility] Endoscopy - [address] [address] Marcellus Walsh MD [address] [place] [phone] 05/01/2024 13:30 EDT Appointment [facility] Breast Imaging - [address] [address] 05/15/2024 15:00 EST Telemedicine [facility] Gastroenterology - [address] [phone] Madhu Park MD PhD [address] [place] [address] 5 [place] [phone] 12/10/2024 11:30 EDT Office Visit [facility] Surgical Oncology - [address] [phone] Magnolia Blood PA-C [address] [place] [address], [facility] 2 [place] [phone] Scheduled Orders Name Type Priority Associated Diagnoses Orde r Schedule SURGICAL PATHOLOGY- ORDER ONLY Pathology Routine Neoplasm of Unspecified Nature of Bone, Soft Tissue, and Skin Ordered: 11/13/2010 documented as of this encounter Visit Diagnoses Diagnosis Neoplasm of unspecified nature of bone, soft tissue, and skin- Primary Actinic keratosis Diffuse photodamage of skin Other chronic dermatitis due to solar radiation Other seborrheic keratosis History of basal cell carcinoma Personal history of other malignant neoplasm of skin documented in this encounter Care Teams Barista Relationship Specialty Start Date End Date None, Provider PCP - General 07/09/10 12/22/10 documented as of this encounter
--- OUTSIDE RECORDS SUMMARY | 2024-03-20 21:38 | XMS_ITS | Encounter Summary ---
Author Organization [facility] Address [address] [place] [address] Care Team Providers Care Sulfonation Equipment Operator Name Role Phone None, Provider Primary Care Provider Unavailabl e Encounter Details Date Type Department Care Team (Late st Contact Info) Description 05/17/2007 Before PRISM Converted Visit (Maple) [facility] - Maple conversion [address] [place] [address] Clarice Murcia MD [address] [place] [phone] Social History Tobacco Use Types Packs/Day Years Used Date Smoking Tobacco: Never Assessed Sex and Gender Information Value Date Recorded Sex Assigned at Not on file Gender Identity Female 05/16/2019 10:23 EST Sexual Orientation Not on file documented as of this encounter Progress Notes * Clarice Murcia MD - 05/20/2009 0118 EST DIVISION OF SURGICAL ONCOLOGY - BREAST CARE CENTER PROGRESS/FOLLOWUP NOTE - 05/17/2007 SUBJECTIVE Sandhya is a 46-year-old woman seen in the Breast Care Center secondary to extreme breast density and bilateral breast lumps. She has an extremely difficult physical examination. Her last mammogram was in December 2006 and was noted to be extremely dense without any significant mammographic abnormalities. Limitation is noted secondary to extreme density. The patient denies any nipple discharge, breast pain, or new breast lumps. REVIEW OF SYSTEMS Negative. Her last menstrual period was mid April. Menses are relatively normal. MEDICATIONS None. ALLERGIES She has no known drug allergies. Update form has been reviewed. OBJECTIVE On physical examination Sandhya is well-appearing. Her color is good, and her skin is warm and dry.Her sclerae are anicteric. She has no cervical, supraclavicular, or axillary lymphadenopathy. Her breasts are examined in the sitting and supine positions. There are no skin or nipple changes. Careful palpation reveals bilateral extreme nodularity and density, most notable in the sitting position. She has predominance of fibronodular tissue in the upper outer aspect of both breasts. This finding is relatively symmetrical. ULTRASOUND Office ultrasound is performed using the 12 megahertz transducer. Both breasts are examined in their entirety. She is noted to have dense fibrous tissue without any significant cystic or solid abnormalities, although she does have a couple of small subcentimeter cysts on the right side. Predominantly her fibronodular physical examination correlates with fibrous density on ultrasound as well as mammography. ASSESSMENT/PLAN Patient with extreme breast density which is an independent risk factor for breast cancer. Due to her difficult clinical examination, I think it is reasonable for her to be followed here in the Breast Care Center for clinical examination and adjunct ultrasound screening in hopes for early cancer det ection. We did discuss screening MRI. She does not meet ACS guidelines for screening MRI, as she has no family history of breast cancer. The patient will return to see me again in oneyear. Signed by Clarice Murcia MD 05/22/2007 14:22 Clarice Murcia MD - Clarice Murcia MD - kkb Job ID: [id number] Doc ID: [id number] cc: MD Nicki Osborn MD documented in this encounter Plan of Treatment Upcoming Encounters Date Type Department Care Team (Late st Contact Info) Description 03/21/2024 8:30 EDT Appointment [facility] Ultrasound [address] [place] [address] 04/17/2024 10:50 EDT Appointment [facility] Endoscopy - [address] [phone] Marcellus Walsh MD [address] [facility] 5 [place] [phone] 05/01/2024 13:30 EDT Appointment [facility] Breast Imaging - [address] [address] 05/15/2024 15:00 EST Telemedicine [facility] Gastroenterology - [address] [phone] Madhu Park MD PhD [address] [place] [address] 5 [place] [phone] 12/10/2024 11:30 EDT Office Visit [facility] Surgical Oncology - [address] [phone] Magnolia Blood PA-C [address] [place] [address], [facility] 2 [place] [phone] documented as of this encounter Visit Diagnoses Not on filedocumented in this encounter Care Teams Sulfonation Equipment Operator Relationship Specialty Start Date End Date None, Provider PCP - General 12/19/08 10/22/09 documented as of this encounter
--- OUTSIDE RECORDS SUMMARY | 2024-03-20 21:38 | XMS_ITS | Encounter Summary ---
Author Organization [facility] Address [address] [place] [address] Care Team Providers Care Yeast Tender Name Role Phone Unknown, Provider Primary Care Provider [phone] Encounter Details Date Type Department Care Team (Late st Contact Info) Description 06/08/2010 Abstract Used for ABSTRACTING Data [phone] Unknown, ProviderMD Social History Tobacco Use Types [...] Encounters Date Type Department Care Team (Late Contact Info) Description 03/21/2024 8:30 EDT Appointment [facility]in Danielle Ultrasound [address] [place], [place] [phone] 04/17/2024 10:50 EDT Appointment [facility] Endoscopy - [facility] [address] [place], [place] [address] Marcellus Walsh MD 111 [facility], Level [address] [place] [phone] 05/01/2024 13:30 EDT Appointment [facility] Breast Imaging - [address] [phone] 05/15/2024 15:00 EST Telemedicine [facility] Gastroenterology - [address] [address] Madhu Park MD PhD [address] [place] [address], [facility] 5 [place] [phone] 12/10/2024 11:30 EDT Office Visit [facility] Surgical Oncology - [address] [phone] Magnolia Blood PAPrabhaC [address] [place] [address], [facility] 2 [place] [phone] documented as of this encounter Visit Diagnoses Not on filedocumented in this encounter Care Teams Yeast Tender Relationship Specialty Start Date End Date Unknown, Provider, PCP - General 10/23/09 07/08/10 documented as of this encounter
--- OUTSIDE RECORDS SUMMARY | 2024-03-20 21:38 | XMS_ITS | Encounter Summary ---
Author Organization [facility] Address [address] [place] [address] Care Team Providers Care Financial Sales Representative Name Role Phone Unavailable Primary Care Provider Unavailabl e Encounter Details Date Type Department Care Team (Late st Contact Info) Description 11/16/2005 10:01 EDT - 11/16/2005 11:59 EDT Hospital Encounter [facility] - [address] [address] Clarice Murcia MD [address] [place] [phone] Discharge Disposition: Auto Discharge Social History Tobacco [...] 8:30 EDT Appointment [facility]in Danielle Ultrasound [address] [place] [address] 04/17/2024 10:50 EDT Appointment [facility] Endoscopy - [facility] [address] [place], [place] [address]241 Marcellus Walsh MD 111 [facility], Level 5 [place] [phone] 05/01/2024 13:30 EDT Appointment [facility] Breast Imaging - [facility] [place] 1 [place], [place] [address] 05/15/2024 15:00 EST Telemedicine [facility] Gastroenterology - [address] [phone] Madhu Park MD PhD 111 [facility], Level 5 [place] [phone] 12/10/2024 11:30 EDT Office Visit [facility] Surgical Oncology - [address] [phone] Magnolia Blood PA-C [address] [place] [address], Level 2 [place] [phone] documented as of this encounter Procedures Procedure Name Priority Date/Time Associated Diagnosis Comments MA MAMMO SCREENING DIGITAL 11/16/2005 10:20 EDT documented in this encounter Results * MA MAMMO SCREENING DIGITAL (11/16/2005 10:20 EDT) Anatomical Region Laterality Modality Other 11/16/2005 10:2 0 EDT Narrative 01/25/2009 10:12 EDT ROUTINE Comparison is made to films from 09/10/2004 and films from 09/02/2003. Bilateral Breast Findings: (CAD used to interpret routine digital): The breasts are extremely dense which could obscure a lesion on mammography. ??No significant masses, calcifications or other abnormalities are seen. IMPRESSION: BILATERAL BREASTS - CATEGORY 1 Negative, no evidence of malignancy. Normal interval follow-up is recommended in 12 months. OVERALL ASSESSMENT - NEGATIVE END OF IMPRESSION Procedure Note Carissa Kendall MD - 01/25/2009 ROUTINE Comparison is made to films from 09/10/2004 and films from 09/02/2003. Bilateral Breast Findings: (CAD used to interpret routine digital): The breasts are extremely dense which could obscure a lesion on mammography. No significant masses, calcifications or other abnormalities are seen. IMPRESSION: BILATERAL BREASTS - CATEGORY 1 Negative, no evidence of malignancy. Normal interval follow-up is recommended in 12 months. OVERALL ASSESSMENT - NEGATIVE END OF IMPRESSION Clarice Murcia MD IMG MAMMOGRAPHY ANITA RIVERA documented in this encounter Visit Diagnoses Not on filedocumented in this encounter
--- OUTSIDE RECORDS SUMMARY | 2024-03-20 21:38 | XMS_ITS | Encounter Summary ---
Author Organization [facility] Address [address] [place] [address] Care Team Providers Care Hat Block Bench Hand Name Role Phone Unavailable Primary Care Provider Unavailabl e Encounter Details Date Type Department Care Team (Late st Contact Info) Description 05/14/2005 9:58 EST Hospital Encounter [address] [address] Clarice Murcia MD [address] [place] [phone] Social History Tobacco Use Types Packs/Day [...] 03/21/2024 8:30 EDT Appointment Karin Saul [address] [place] [address] 04/17/2024 10:50 EDT Appointment [facility] Endoscopy - [address] [phone] Marcellus Walsh MD [address] [place] [address] 5 [place] [phone] 05/01/2024 13:30 EDT Appointment [facility] Breast Imaging - [address] [phone] 05/15/2024 15:00 EST Telemedicine [facility] Gastroenterology - [address] [address] Madhu Park MD PhD [address] [place] [address] 5 [place] [phone] 12/10/2024 11:30 EDT Office Visit [facility] Surgical Oncology - [address] [phone] Magnolia Blood, PA-C [address] [place] [address], [facility] 2 [place] [phone] documented as of this encounter Visit Diagnoses Not on filedocumented in this encounter
--- OUTSIDE RECORDS SUMMARY | 2024-03-20 21:38 | XMS_ITS | Encounter Summary ---
Author Organization [facility] Address [address] [place] [address] Care Team Providers Care Research Neuropsychologist Name Role Phone Unknown, Provider Primary Care Provider [phone] Encounter Details Date Type Department Care Team (Late st Contact Info) Description 12/15/2009 9:37 EDT - 12/15/2009 9:38 EDT Hospital Encounter [facility] - Other [address] [place] [address] Ingrid Casillas MD [address] [place] [phone] Discharge Disposition: Home or Self Care Social [...] Contact Info) Description 03/21/2024 8:30 EDT Appointment Karineloy Danielle Ultrasound [address] [place], [place] [address] 04/17/2024 10:50 EDT Appointment [facility] Endoscopy - [address] [phone] Marcellus Walsh MD [address] [place] [address] 5 [place] [phone] 05/01/2024 13:30 EDT Appointment [facility] Breast Imaging - [facility] [address] [place] 1 [place], [place] [address] 05/15/2024 15:00 EST Telemedicine [facility] Gastroenterology - [address] [phone] Madhu Park MD PhD [address] [place] [address] 5 [place] [phone] 12/10/2024 11:30 EDT Office Visit [facility] Surgical Oncology - [address] [phone] Magnolia Blood, PA-C [address] [place] [address], [facility] 2 [place] [phone] documented as of this encounter Visit Diagnoses Not on filedocumented in this encounter Care Teams Research Neuropsychologist Relationship Specialty Start Date End Date Unknown, Provider, PCP - General 10/23/09 07/08/10 documented as of this encounter
--- OUTSIDE RECORDS SUMMARY | 2024-03-20 21:38 | XMS_ITS | Encounter Summary ---
Author Organization [facility] Address [address] [place] [address] Care Team Providers Care Deck Specialist Name Role Phone Unknown, Provider MD Primary Care Provider None, Provider Primary Care Provider Unavailabl e Encounter Details Date Type Department Care Team (Late st Contact Info) Description 08/10/2004 Results Only [facility] - [place] [address] [place] [address] Agnieszka Simpson MD Social History Tobacco Use [...] 8:30 EDT Appointment [facility]in Danielle Ultrasound [address] [place] [address] 04/17/2024 10:50 EDT Appointment [facility] Endoscopy - [facility] [address] [place] [address] Marcellus Walsh MD 111 [facility], Level 5 [place] [phone] 05/01/2024 13:30 EDT Appointment [facility] Breast Imaging - [address] [address] 05/15/2024 15:00 EST Telemedicine [facility] Gastroenterology - [address] [address] Madhu Park MD PhD 111 [facility], Level 5 [place] [phone] 12/10/2024 11:30 EDT Office Visit [facility] Surgical Oncology - [address] [phone] Magnolia Blood, PA-C 111 [facility], [facility] 2 [place] [phone] documented as of this encounter Procedures Procedure Name Priority Date/Time Associated Diagnosis Comments CYTOPATHOLOGY Routine 08/10/2004 0:00 EST documented in this encounter Results * CYTOPATHOLOGY (08/10/2004 0:00 EST) Pathology Report: CYTOPATHOLOGY REPORT Reports generated via electronic interface contain original data; however they are lacking the format of the original report. Caution should be taken when reading/interpreti ng unformatted reports. Name: ? SANDHYA BARRETT Laura ? Accession #: ? [id number] : ? 1960 (Age: 44) ??F ?Collect Date: ? 08/10/2004 Location: ? [facility] ? Receive Date: ? 08/11/2004 Provider: ?AGNIESZKA SIMPSON MD Copy to: ? Specimen/Source: ?ThinPrep Pap Test, Cervix/Endocervix Last Menstrual Period: ? 06/23/04 Previous Gynecologic Pathology: ? KOURTNEY: Cyst 1986 Other: ? [facility] - HPV testing requested if ASCUS/KIRERA on the current ThinPrep Pap test. ? SPECIMEN ADEQUACY ? Satisfactory for Evaluation - transformation zone component present GENERAL CATEGORIZATION ? Negative for Intraepithelial Lesion or Malignancy ? Document reviewed and electronically signed by: ? Dayanara Arteaga, CT(ASCP) ? Report Date: ??08/14/2004 11:00 End of Report KATHERYN DALTON 08/10/2004 08/11/2004 Agnieszka Simpson MD PATHOLOGY OR DERABLES Performing Organization Address City/State/[facility] Co de Phone Number KATHERYN DALTON [address] [place] [address] documented in this encounter Visit Diagnoses Not on filedocumented in this encounter Care Teams Deck Specialist Relationship Specialty Start Date End Date Unknown, Provider, PCP - General 10/23/09 07/08/10 None, Provider PCP - General 12/19/08 10/22/09 documented as of this encounter
--- OUTSIDE RECORDS SUMMARY | 2024-03-20 21:38 | XMS_ITS | Encounter Summary ---
Author Organization [facility] Address [address] [place] [address] Care Team Providers Care Clay Mixer Name Role Phone Unknown, Provider Primary Care Provider Encounter Details Date Type Department Care Team (Late st Contact Info) Description 03/10/2010 Results Only [facility]- [facility] [phone] Ingrid Casillas MD [address] [place] [address] [address] [place] [phone] Social History Tobacco Use Types Packs/Day [...] 8:30 EDT Appointment Karin Danielle Ultrasound [address] [place], [place] [phone] 04/17/2024 10:50 EDT Appointment [facility] Endoscopy - [facility] [address] [place], [place] [phone] Marcellus Walsh MD 111 [facility], Level 5 [place] [phone] 05/01/2024 13:30 EDT Appointment [facility] Breast Imaging - [facility] S [address] 056341 05/15/2024 15:00 EST Telemedicine [facility] Gastroenterology - [facility] [address] [place], [place] [address] Madhu Park MD PhD 111 [facility], Level [address] [place] [phone] 12/10/2024 11:30 EDT Office Visit [facility] Surgical Oncology - [facility] [address] [place], [place] [phone] Magnolia Blood PA-C 111 [facility], [facility] 2 [place] [phone] documented as of this encounter Procedures Procedure Name Priority Date/Time Associated Diagnosis Comments MA MAMMO SCREENING DIGITAL 03/11/2010 15:13 EDT documented in this encounter Results * MA MAMMO SCREENING DIGITAL (03/11/2010 15:13 EDT) Anatomical Region Laterality Modality Other 03/11/2010 15:1 3 EDT 03/12/2010 11:48 EDT Narrative 03/12/2010 11:48 EDT Comparison is made to films from 01/13/2009 (bilateral) and films from 12/19/2007 (bilateral) and films from 12/13/2006 (bilateral) and films from 11/16/2005 (bilateral) and films from 09/10/2004 and films from 09/02/2003. Bilateral Breast Findings: (CAD used to interpret routine digital): The breasts are extremely dense which could obscure a lesion on mammography. No significant masses, calcifications or other abnormalities are seen. IMPRESSION: BILATERAL BREASTS - CATEGORY 1, NEGATIVE Negative, no evidence of malignancy. Normal interval follow-up is recommended in 12 months. OVERALL ASSESSMENT - NEGATIVE END OF IMPRESSION The patient will be notified of her/his breast imaging results via a lay letter from Radiology. ??Radiology will contact the patient directly regarding any findings which require additional imaging (Category 0) at this time. Procedure Note 03/12/2010 Comparison is made to films from 01/13/2009 (bilateral) and films from 12/19/2007 (bilateral) and films from 12/13/2006 (bilateral) and films from 11/16/2005 (bilateral) and films from 09/10/2004 and films from 09/02/2003. Bilateral Breast Findings: (CAD used to interpret routine digital): The breasts are extremely dense which could obscure a lesion on mammography. No significant masses, calcifications or other abnormalities are seen. IMPRESSION: BILATERAL BREASTS - CATEGORY 1, NEGATIVE Negative, no evidence of malignancy. Normal interval follow-up is recommended in 12 months. OVERALL ASSESSMENT - NEGATIVE END OF IMPRESSION The patient will be notified of her/his breast imaging results via a lay letter from Radiology. Radiology will contact the patient directly regarding any findings which require additional imaging (Category 0) at this time. Ingrid Casillas MD IMG MAMMOGRAPHY ORD ERABLES documented in this encounter Visit Diagnoses Not on filedocumented in this encounter Care Teams Clay Mixer Relationship Specialty Start Date End Date Unknown, Provider, PCP - General 10/23/09 07/08/10 documented as of this encounter
--- OUTSIDE RECORDS SUMMARY | 2024-03-20 21:38 | XMS_ITS | Encounter Summary ---
Author Organization [facility] Address [address] [place] [address] Care Team Providers Care Recruiter Coordinator Name Role Phone None, Provider Primary Care Provider Unavailabl e Reason for Visit * Reason Comments Follow-up Dense breast tissue Encounter Details Date Type Department Care Team (Late st Contact Info) Description 07/16/2010 11:00 EST Office Visit [facility] Surgical Oncology - [facility] [address] [place] [address] Josh Daniels MD MSc [address] [place] [phone] Dense breasts (Primary Dx) Discharge Disposition: Auto Discharge Social [...] documented in this encounter Progress Notes * Josh Daniels MD - 07/16/2010 1144 EST DIVISION OF SURGICAL ONCOLOGY [facility] PROGRESS/FOLLOWUP NOTE - 07/16/2010 REASON FOR VISIT: Dense breast tissue and nodular breast exam. HISTORY: Sandhya is a very pleasant 49-year-old woman who has been followed at the breast care center due to very dense breast tissue and nodular breast exam. She does not have a personal history of breast cancer nor does she have a family history of breast or ovarian cancer. Sandhya has been in her usual state of health, has no specific breast-related complaints including breast pain, suspiciouslumps, nipple discharge or skin changes. PAST MEDICAL HISTORY: Sandhya has no major medical problems or comorbidities. She does not smoke and has only occasional alcohol. SOCIAL HISTORY: Her father recently from abdominal sepsis FAMILY HISTORY: Sandhya's maternal uncle had lung cancer as did her maternal aunt. MEDICATIONS: Advil, multiple vitamins and supplements. ALLERGIES: No known drug allergies. REVIEW OF SYSTEMS: Negative. Comprehensive systems form reviewed. OBJECTIVE: The patient appears comfortable, in no acute distress. She is tall and thin. Skin no diffuse rash or evidence of jaundice. Head and neck no scleral icterus or cervical mass. Extremities noedema and good range of motion. Comprehensive breast exam: Lymphatics: no supraclavicular lymphadenopathy. There are no matted or fixed axillary nodes; however, small mobile lymph nodes are palpable on the right likely due to the fact that Sandhya is so thin. Breasts: symmetrical with no abnormalities of the overlying skin or nipple areolar region. Large and pendulous. On palpation both breasts are quite firm and dense with multiple diffuse nodularity. There are, however, no dominant or fixed masses. DIAGNOSTICS: Bilateral screening mammogram performed at [facility] dated Mar 11 2010: The report states that the breasts are extremely dense which could obscure a lesion on mammography. No significant masses, calcifications or other abnormalities are seen. IMPRESSION: BILATERAL BREASTS - CATEGORY 1, NEGATIVE Bilateral high-risk breast ultrasound. Jul 16, 2010. Comparison is to mammogram of March 2010 and to previous breast sonography performed in May 2009 and November 2009 at which time numerous cysts, fibrocystic nodules and debris containing ducts were identified. Findings both breasts: Each breast was scanned in its entirety. There are numerous subcentimeter cysts in both breasts, some of whichcontain debris, fibrocystic nodules and areas of duct [...] patient may wish to continue with annual high- risk screening sonography as well. Overall assessment: Benign. ASSESSMENT AND PLAN: This is a 49-year-old woman with extremely dense breast tissue and diffuse palpable nodularity. She did not have any clinically suspicious findings on careful examination of bothbreasts and axillae. Her recent imaging was also benign. The is continued screening with mammogram and ultrasound. She will have clinical follow-up with our nurse practitioner. Josh Daniels MD documented in this encounter Plan of Treatment Upcoming Encounters Date Type Department Care Team (Late st Contact Info) Description 03/21/2024 8:30 EDT Appointment Karin Danielle Ultrasound 0 [place], [place] [address] 04/17/2024 10:50 EDT Appointment [facility] Endoscopy - [address] [phone] Marcellus Walsh MD [address] [place] [address] 5 [place] [phone] 05/01/2024 13:30 EDT Appointment [facility] Breast Imaging - [address] [phone] 05/15/2024 15:00 EST Telemedicine [facility] Gastroenterology - [address] [address] Madhu Park MD PhD [address] [place] [address] 5 [place] [phone] 12/10/2024 11:30 EDT Office Visit [facility] Surgical Oncology - [address] [phone] Magnolia Blood PA-C [address] [place] [address], Level 2 [place] [phone] documented as of this encounter Visit Diagnoses Diagnosis Dense breasts- Primary Inconclusive mammogram documented in this encounter Care Teams Recruiter Coordinator Relationship Specialty Start Date End Date None, Provider PCP - General 07/09/10 12/22/10 documented as of this encounter
--- OUTSIDE RECORDS SUMMARY | 2024-03-20 21:38 | XMS_ITS | Encounter Summary ---
Author Organization [facility] Address [address] [place] [address] Care Team Providers Care Branch Rental Manager Name Role Phone Unavailable Primary Care Provider Unavailabl e Encounter Details Date Type Department Care Team (Latest Contact Info) Description 10/18/2005 7:47 EDT - 10/18/2005 11:59 EDT Hospital Encounter [facility] - Other [address] [place] [address] Nicki Dover MD Discharge Disposition: Home or Self Care [...] 8:30 EDT Appointment Karin Danielle Ultrasound [address] [place] [address] 04/17/2024 10:50 EDT Appointment [facility] Endoscopy - [facility] [address] [place] [address] Marcellus Walsh MD 111 [facility], Level 5 [place] [phone] 05/01/2024 13:30 EDT Appointment [facility] Breast Imaging - [address] [address] 05/15/2024 15:00 EST Telemedicine [facility] Gastroenterology - [address] [phone] Madhu Park MD PhD [address] [place] [address], [facility] 5 [place] [phone] 12/10/2024 11:30 EDT Office Visit [facility] Surgical Oncology - [address] [phone] Magnolia Blood PA-C [address] [place] [address], [facility] 2 [place] [phone] documented as of this encounter Visit Diagnoses Not on filedocumented in this encounter
--- OUTSIDE RECORDS SUMMARY | 2024-03-20 21:38 | XMS_ITS | Encounter Summary ---
Author Organization [facility] Address [address] [place] [address] Care Team Providers Care Building Coordinator Name Role Phone Unavailable Primary Care Provider Unavailabl e Encounter Details Date Type Department Care Team (Latest Contact Info) Description 09/10/2004 6:58 EST - 09/10/2004 11:59 EST Hospital Encounter [facility] - Other [address] [place] [address] Agnieszka Simpson MD Discharge Disposition: Auto Discharge Social History [...] 8:30 EDT Appointment Karin Danielle Ultrasound [address] [place] [address] 04/17/2024 10:50 EDT Appointment [facility] Endoscopy - [facility] [address] [place] [address] Marcellus Walsh MD 111 [facility], Level [address] [place] [phone] 05/01/2024 13:30 EDT Appointment [facility] Breast Imaging - [address] [address] 05/15/2024 15:00 EST Telemedicine [facility] Gastroenterology - [address] [phone] Madhu Park MD PhD 111 [facility], Level [address] [place] [phone] 12/10/2024 11:30 EDT Office Visit [facility] Surgical Oncology - [address] [phone] Magnolia Blood PA-C 111 [facility], [facility] 2 [place] [phone] documented as of this encounter Procedures Procedure Name Priority Date/Time Associated Diagnosis Comments MA MAMMO SCREENING DIGITAL Routine 09/10/2004 13:54 EST documented in this encounter Results * MA MAMMO SCREENING DIGITAL (09/10/2004 13:54 EST) Anatomical Region Laterality Modality Other 09/10/2004 13:5 4 EST Impressions 03/06/2009 10:32 EDT IMPRESSION: BILATERAL BREASTS - CATEGORY 1 Negative, no evidence of malignancy. Normal interval follow-up is recommended in 12 months. OVERALL ASSESSMENT - NEGATIVE END OF IMPRESSION Narrative 03/06/2009 10:32 EDT ROUTINE HX SOTERO FIBROCYSTIC LUMPS ??- SOTERO GREEN NIPPLE DISCHARGE ? NO PCP ?? [REQ GLENN WISE] Comparison is made to films from 09-02-2003, 06-19-2002, and 06-05-2001. Bilateral Breast Findings (CAD used to interpret routine digital projection): The breasts are extremely dense which could obscure a lesion on mammography. No significant masses, calcifications or other abnormalities are seen. Procedure Note Ale Weldon / Carissa Kendall MD - 03/06/2009 ROUTINE HX SOETRO FIBROCYSTIC LUMPS - SOTERO GREEN NIPPLE DISCHARGE NO PCP [REQ AGNIESZKA SIMPSON, GLENN FAJARDO] Comparison is made to films from 09-02-2003, 06-19-2002, and 06-05-2001. Bilateral Breast Findings (CAD used to interpret routine digital projection): The breasts are extremely dense which could obscure a lesion on mammography. No significant masses, calcifications or other abnormalities are seen. IMPRESSION IMPRESSION: BILATERAL BREASTS - CATEGORY 1 Negative, no evidence of malignancy. Normal interval follow-up is recommended in 12 months. OVERALL ASSESSMENT - NEGATIVE END OF IMPRESSION Glenn Fajardo MD IMG MAMMOGRAPHY ORDE MIGUEL documented in this encounter Visit Diagnoses Not on filedocumented in this encounter
--- OUTSIDE RECORDS SUMMARY | 2024-03-20 21:38 | XMS_ITS | Encounter Summary ---
Author Organization [facility] Address [address] [place] [address] Care Team Providers Care Consulting Property Manager Name Role Phone None, Provider Primary Care Provider Unavailabl e Encounter Details Date Type Department Care Team (Late st Contact Info) Description 10/06/2009 Results Only [facility] Laboratory Services - [facility] ([facility]) [address] [place], [place] [address] Dashawn Ramesh PA-C [address] [place] [address] ,[address] [place], [place] [address] Social History Tobacco Use Types Packs/Day Years Used Date Smoking Tobacco: Never Assessed Sex and Gender Information Value Date Recorded Sex Assigned at Not on file Gender Identity Female 05/16/2019 10:23 EST Sexual Orientation Not on file documented as of this encounter Plan of Treatment Upcoming Encounters Date Type Department Care Team (Late st Contact Info) Description 03/21/2024 8:30 EDT Appointment [facility] Ultrasound [address] [place] [address] 04/17/2024 10:50 EDT Appointment [facility] - [facility] [address] [place], [place] [phone] Marcellus Walsh MD 111 [facility], Level 5 [place] [phone] 05/01/2024 13:30 EDT Appointment [facility] Breast Imaging - [address] [id number] 05/15/2024 15:00 EST Telemedicine [facility] Gastroenterology - [address] [phone] Madhu Park MD PhD 111 [facility], Level 5 [place] [phone] 12/10/2024 11:30 EDT Office Visit [facility] Surgical Oncology - [address] [phone] [facility], PAPrabhaC 111 [facility], [facility] 2 [place] [phone] documented as of this encounter Procedures Procedure Name Priority Date/Time Associated Diagnosis Comments SURGICAL PATHOLOGY Routine 10/06/2009 0:00 EDT documented in this encounter Results * SURGICAL PATHOLOGY (10/06/2009 0:00 EDT) Pathology Report: SURGICAL PATHOLOGY REPORT ? Reports generated via electronic interface contain original data; ? however they are lacking the format of the original report. ? Caution should be taken when reading/interpreti ng unformatted reports. ? Name: ? ARNOLD, SANDHYA B ? Accession #: ? [id number] ? : ? 1960 (Age: 49) ??F ? Collect Date: ? 10/06/2009 ? Location: ? [facility] ? Receive Date: ? 10/06/2009 ? Provider: DASHAWN RAMESH PA ? Copy to: ? Final Pathologic Diagnosis: ? Skin of advent, right, shave biopsy: ? 1. ?Basal cell carcinoma, infiltrative type. ? - Lesion extends to base of biopsy specimen. ? Microscopic Description: ? Emanating from the epidermis and extending into the dermis are irregularly shaped islands and cords of atypical basal cells. ??Many of the islands are small and angulate. ??The basal cells have scant cytoplasm and round dark nuclei. ? Mitotic figures and apoptotic bodies are evident. ??Some nuclei at the periphery of some of the larger islands have a palisaded arrangement. ??There is ? fibroplasia and myxoid change of the stroma with cleft formation between some of the islands and stroma. ??(Dr. Ulrich)/niyah ? Document reviewed and electronically signed by: ? Sejal Ulrich MD ? Report ??Date: 10/08/2009 13:11 ? By the signature above, the attending physician certifies that he/she has ? personally conducted a gross and/or microscopic examination of the described ? specimens and rendered or confirmed the above diagnosis. ? Specimen(s) Received: ? Shave right advent ? Clinical History: ? Has 1 yr f/up; BCC; would refer Mohs and we already discussed this ? possibility; clinical diagnosis code: 238.2 ? Gross Description: ? Received in formalin labelled Arnold Sandhya and advent is a 0.3 x 0.3 x 0.1 cm shave biopsy of brown, crusted skin. ??The specimen is submitted ? intact in a single cassette. ??(Wilder Figueredo)/niyah ? End of Report ? [facility] 10/06/2009 10/06/2009 19: 27 EDT Dashawn Ramesh PA-C PATHOLOGY ORD ERAHIPOLITO [facility] [address] [place] [address] documented in this encounter Visit Diagnoses Not on filedocumented in this encounter Care Teams Consulting Property Manager Relationship Specialty Start Date End Date None, Provider PCP - General 12/19/08 10/22/09 documented as of this encounter
--- OUTSIDE RECORDS SUMMARY | 2024-03-20 21:38 | XMS_ITS | Encounter Summary ---
Author Organization [facility] Address [address] [place] [address] Care Team Providers Care Construction Technician Name Role Phone None, Provider Primary Care Provider Unavailabl e Encounter Details Date Type Department Care Team (Late st Contact Info) Description 01/13/2009 Orders Only [address] [address] Clarice Murcia MD [address] [place] [phone] Social History Tobacco Use Types Packs/Day [...] 8:30 EDT Appointment [facility] [address] [place], [place] [phone] 04/17/2024 10:50 EDT Appointment [facility] [address] [place], [place] [phone] Marcellus Walsh MD 111 [facility], Level 5 [place] [phone] 05/01/2024 13:30 EDT Appointment [facility] Breast Imaging - [facility] [address] [address] 05/15/2024 15:00 EST Telemedicine [facility] G[facility] [address] [place], [place] [phone] Madhu Park MD PhD 111 [facility], [facility] 5 [place] [phone] 12/10/2024 11:30 EDT Office Visit [facility] - [facility] [address] [place], [place] [phone] [facility] PA-C 111 [facility], [facility] 2 [place] [phone] documented as of this encounter Procedures Procedure Name Priority Date/Time Associated Diagnosis Comments MA MAMMO SCREENING DIGITAL 01/13/2009 9:37 EDT documented in this encounter Results * MA MAMMO SCREENING DIGITAL (01/13/2009 9:37 EDT) Anatomical Region Laterality Modality Other 01/13/2009 9:37 EDT 01/13/2009 22:18 EDT Narrative 01/13/2009 22:18 EDT Comparison is made to films from 12/19/2007 (bilateral) and films from 12/13/2006 (bilateral) and films from 11/16/2005 (bilateral) and films from 09/10/2004. Bilateral Breast Findings: (CAD used to interpret [...] (Category 0) at this time. Procedure Note 01/13/2009 Comparison is made to films from 12/19/2007 (bilateral) and films from 12/13/2006 (bilateral) and films from 11/16/2005 (bilateral) and films from 09/10/2004. Bilateral Breast Findings: (CAD used to interpret [...] additional imaging (Category 0) at this time. Clarice Murcia MD IMG MAMMOGRAPHY ANITA RIVERA documented in this encounter Visit Diagnoses Not on filedocumented in this encounter Care Teams Construction Technician Relationship Specialty Start Date End Date None, Provider PCP - General 12/19/08 10/22/09 documented as of this encounter
--- OUTSIDE RECORDS SUMMARY | 2024-03-20 21:38 | XMS_ITS | Encounter Summary ---
Author Organization [facility] Address [address] [place] [address] Care Team Providers Care Computer Forensics Examiner Name Role Phone Unavailable Primary Care Provider Unavailabl e Encounter Details Date Type Department Care Team (Late st Contact Info) Description 12/19/2007 8:32 EDT - 12/19/2007 11:59 EDT Hospital Encounter [facility] [address] [place] [address] Clarice Murcia MD [address] [place] [phone] Discharge Disposition: Auto Discharge Social History Tobacco [...] 8:30 EDT Appointment [facility] [address] [place] [address] 04/17/2024 10:50 EDT Appointment [facility] Endoscopy - [facility] [address] [place], [place] [address] Marcellus Walsh MD 111 [facility], [facility], Level [address] [place] [phone] 05/01/2024 13:30 EDT Appointment [facility] Breast Imaging - [facility] S [place] [address] [place], [place] [phone] 05/15/2024 15:00 EST Telemedicine [facility] Gastroenterology - [address] [phone] Madhu Park MD PhD 111 [facility], Level [address] [place] [phone] 12/10/2024 11:30 EDT Office Visit [facility] Surgical Oncology - [address] [address] [facility], PAPrabhaC 111 [facility], [facility] 2 [place] [address] documented as of this encounter Procedures Procedure Name Priority Date/Time Associated Diagnosis Comments SURGICAL PATHOLOGY Routine 12/16/2008 0:00 EDT [facility] 12/19/2007 8:53 EDT documented in this encounter Results * SURGICAL PATHOLOGY (12/16/2008 0:00 EDT) Pathology Report: SURGICAL PATHOLOGY REPORT ? Reports generated via electronic interface contain original data; ? however they are lacking the format of the original report. ? Caution should be taken when reading/interpreti ng unformatted reports. ? Name: ? ARNOLD, SANDHYA B ? Accession #: ? [id number] ? : ? 1960 (Age: 48) ??F ? Collect Date: ? 12/16/2008 ? Location: ? [facility] ? Receive Date: ? 12/16/2008 ? Provider: NICKI SIMPSON MD ? Copy to: ? Final Pathologic Diagnosis: ? Cervix, polyp, biopsy: ? - Benign endocervical polyp with squamous metaplasia. ? Document reviewed and electronically signed by: ? Williamsn Rogerio, MBChB ? Report ??Date: 12/17/2008 14:57 ? By the signature above, the attending physician certifies that he/she has ? personally conducted a gross and/or microscopic examination of the described ? specimens and rendered or confirmed the above diagnosis. ? Specimen(s) Received: ? Cervical polyp ? Clinical History: ? Cervical polyp ? Gross Description: ? Received in formalin labelled Sandhya Lomas and cervical polyp is a ?? 0.3 x 0.2 x 0.1 cm, white to focally light red, slightly firm piece of tissue as well as a couple of small, red-tinged to white fragments of soft tissue. ??The ?? specimen is entirely submitted in one cassette. ??/cjh ? End of Report ? [facility] 12/16/2008 12/16/2008 14: 27 EDT Nicki Simpson MD PATHOLOGY OR DERABLES [facility] [address] [place] [address] * [facility]NA DX [facility] DIG EMERGENCY (12/19/2007 8:53 EDT) Anatomical Region Laterality Modality Other 12/19/2007 8:53 EDT Narrative 12/22/2008 13:03 EDT extreme breast density, new left breast lump 1cm at 2:00 and 8cm out, bcc us dense tissue cyst in vicinity Comparison is made to films from 12/13/2006 (bilateral) and films from 11/16/2005 (bilateral) and films from 09/10/2004 and films from 09/02/2003. Left Breast Findings: (CAD used to interpret diagnostic digital and digital additional): The breast is extremely dense which could obscure a lesion on mammography. No significant masses, calcifications or other abnormalities are seen. Right Breast Findings: (CAD used to interpret diagnostic digital): The breast is extremely dense which could obscure a lesion on mammography. No significant masses, calcifications or other abnormalities are seen. IMPRESSION: LEFT BREAST - CATEGORY 1 Negative, no evidence of malignancy. Normal interval follow-up is recommended in 12 months. RIGHT BREAST - CATEGORY 1 Negative, no evidence of [...] and agree with the findings. Procedure Note Dagoberto William / Ha Elise MD - 12/22/2008 extreme breast density, new left breast lump 1cm at 2:00 and 8cm out, bcc us dense tissue cyst in vicinity Comparison is made to films from 12/13/2006 (bilateral) and films from 11/16/2005 (bilateral) and films from 09/10/2004 and films from 09/02/2003. Left Breast Findings: (CAD used to interpret diagnostic digital and digital additional): The breast is extremely dense which could obscure a lesion on mammography. No significant masses, calcifications or other abnormalities are seen. Right Breast Findings: (CAD used to interpret diagnostic digital): The breast is extremely dense which could obscure a lesion on mammography. No significant masses, calcifications or other abnormalities are seen. IMPRESSION: LEFT BREAST - CATEGORY 1 Negative, no evidence of malignancy. Normal interval follow-up is recommended in 12 months. RIGHT BREAST - CATEGORY 1 Negative, no evidence of [...]
--- OUTSIDE RECORDS SUMMARY | 2024-03-20 21:38 | XMS_ITS | Encounter Summary ---
Author Organization [facility] Address [address] [place] [address] Care Team Providers Care Merchandise Examiner Name Role Phone Unavailable Primary Care Provider Unavailabl e Encounter Details Date Type Department Care Team (Latest Contact Info) Description 12/16/2008 10:34 EDT - 12/16/2008 10:35 EDT Hospital Encounter [facility] - Other [address] [place] [address] Nicki Dover MD Discharge Disposition: Home or [...] 8:30 EDT Appointment [facility] [address] [place] [address] 04/17/2024 10:50 EDT Appointment [facility] Endoscopy - [facility] [address] [place] [address] Marcellus Walsh MD 111 [facility], Level 5 [place] [phone] 05/01/2024 13:30 EDT Appointment [facility] Breast Imaging - [address] [phone] 05/15/2024 15:00 EST Telemedicine [facility] Gastroenterology - [address] [phone] Madhu Park MD PhD [address] [place] [address], [facility] 5 [place] [phone] 12/10/2024 11:30 EDT Office Visit [facility] Surgical Oncology - [address] [phone] [facility] PA-C [address] [place] [address], [facility] 2 [place] [phone] documented as of this encounter Visit Diagnoses Not on filedocumented in this encounter
--- OUTSIDE RECORDS SUMMARY | 2024-03-20 21:38 | XMS_ITS | Encounter Summary ---
Author Organization [facility] Address [address] [place] [address] Care Team Providers Care Sausage Mixer Name Role Phone None, Provider Primary Care Provider Unavailabl e Encounter Details Date Type Department Care Team (Latest Contact Info) Description 10/06/2009 22:06 EDT - 10/06/2009 22:08 EDT Hospital Encounter [facility] - Other [address] [place], [place] [address] Clarice Ramesh PA-C [address] [place] [address] ,[address] [place], [place] [phone] Discharge Disposition: Home or Self Care Social [...] 8:30 EDT Appointment [facility] [address] [place], [place] [address] 04/17/2024 10:50 EDT Appointment [facility] Endoscopy - [facility] [address] [place], [place] [address] Marcellus Walsh MD 111 [facility], [facility], Level [address] [place] [phone] 05/01/2024 13:30 EDT Appointment [facility] Breast Imaging - [facility] S [place] [address] [place], [place] [phone] 05/15/2024 15:00 EST Telemedicine [facility] Gastroenterology - [address] [phone] Madhu Park MD PhD [address] [place] [address], [facility] 5 [place] [phone] 12/10/2024 11:30 EDT Office Visit [facility] Surgical Oncology - [address] [phone] [facility] PA-C [address] [place] [address], [facility] 2 [place] [phone] documented as of this encounter Visit Diagnoses Not on filedocumented in this encounter Care Teams Sausage Mixer Relationship Specialty Start Date End Date None, Provider PCP - General 12/19/08 10/22/09 documented as of this encounter
--- OUTSIDE RECORDS SUMMARY | 2024-03-20 21:38 | XMS_ITS | Encounter Summary ---
Author Organization [facility] Address [address] [place] [address] Care Team Providers Care Silk Screener Name Role Phone None, Provider Primary Care Provider Unavailabl e Encounter Details Date Type Department Care Team (Late st Contact Info) Description 01/13/2009 9:07 EDT - 01/13/2009 23:59 EDT Hospital Encounter [facility] - [address] [address] Clarice Murcia MD [address] [place] [phone] Discharge Disposition: Auto Discharge Social History Tobacco [...] 8:30 EDT Appointment [facility] [address] [place] [address] 04/17/2024 10:50 EDT Appointment [facility] Endoscopy - [facility] [address] [place], [place] [address] Marcellus Walsh MD 111 [facility], [facility], Level 5 [place] [phone] 05/01/2024 13:30 EDT Appointment [facility] Breast Imaging - [facility] S [place] [address] [place], [place] [phone] 05/15/2024 15:00 EST Telemedicine [facility] Gastroenterology - [address] [phone] Madhu Park MD PhD [address] [place] [address], [facility] 5 [place] [phone] 12/10/2024 11:30 EDT Office Visit [facility] Surgical Oncology - [address] [phone] [facility] PAPrabhaC [address] [place] [address], [facility] 2 [place] [phone] documented as of this encounter Visit Diagnoses Not on filedocumented in this encounter Care Teams Silk Screener Relationship Specialty Start Date End Date None, Provider PCP - General 12/19/08 10/22/09 documented as of this encounter
--- OUTSIDE RECORDS SUMMARY | 2024-03-20 21:38 | XMS_ITS | Encounter Summary ---
Author Organization [facility] Address [address] [place] [address] Care Team Providers Care Fine Arts Model Name Role Phone Unknown, Provider Primary Care Provider Encounter Details Date Type Department Care Team (Late st Contact Info) Description 11/17/2009 Orders Only [facility] Surgical Oncology - [facility] [address] [place], [place] [address] Josh Daniels MD [address] [phone] Social History Tobacco Use Types Packs/Day Years [...] 8:30 EDT Appointment [facility] [address] [place] [address] 04/17/2024 10:50 EDT Appointment [facility] Endoscopy - [facility] [address] [place], [place] [phone] Marcellus Walsh MD 111 [facility], Level 5 [place] [phone] 05/01/2024 13:30 EDT Appointment [facility] Breast Imaging - [address] [address] 05/15/2024 15:00 EST Telemedicine [facility] Gastroenterology - [address] [phone] Madhu Park MD PhD 111 [facility], Level 5 [place] [phone] 12/10/2024 11:30 EDT Office Visit [facility] Surgical Oncology - [address] [phone] [facility] PA-C 111 [facility], Level 2 [place] [phone] documented as of this encounter Procedures Procedure Name Priority Date/Time Associated Diagnosis Comments RAD US BREAST UNILATERAL - ONE BREAST 11/17/2009 12:12 EDT documented in this encounter Results * RAD US BREAST UNILATERAL - ONE BREAST (11/17/2009 12:12 EDT) Anatomical Region Laterality Modality Other 11/17/2009 12:1 2 EDT 11/17/2009 13:31 EDT Narrative 11/17/2009 13:31 EDT Right breast ultrasound dated 11/17/2009 Comparison: 05/20/2009 and prior ultrasound performed at [facility] dated 05/13/2009, 12/19/2007 and 05/20/2006. Clinical History: This is a 6 month followup for a hypoechoic lesion at 7:00 4.5 cm out from the nipple right breast. This lesion was never documented sonographically prior to May 2009. Right breast ultrasound findings: The ultrasound was targeted to 7:00 position, 4.5 cm out from the nipple. The hypoechoic lesion is stable in size and measures 1.1 x 0.7 x 0.8 cm. It is similar in appearance and size. There is also a prominent duct at 6:00 3 cm out from the nipple and a simple cyst at 8:00 9 cm out from the nipple. Impression: Stable hypoechoic lesion at 7:00 4.5 cm out from the nipple. Recommend another 6 month followup to establish stability for a period of a year. BI-RADS Category Assessment 3: ??Probably benign. Of note, the patient is due for a bilateral screening mammography in January 2010. Results and recommendations were discussed with the patient by the senior living sales counselor at the time of the exam. The patient will be notified of her/his breast imaging results via a lay letter from radiology. Radiology will contact the patient directly regarding any findings which require additional imaging (Category 0) at this time. Overall assessment category 3 Procedure Note 11/17/2009 Right breast ultrasound dated 11/17/2009 Comparison: 05/20/2009 and prior ultrasound performed at the [facility] dated 05/13/2009, 12/19/2007 and 05/20/2006. Clinical History: This is a 6 month followup for a hypoechoic lesion at 7:00 4.5 cm out from the nipple right breast. This lesion was never documented sonographically prior to May 2009. Right breast ultrasound findings: The ultrasound was targeted to 7:00 position, 4.5 cm out from the nipple. The hypoechoic lesion is stable in size and measures 1.1 x 0.7 x 0.8 cm. It is similar in appearance and size. There is also a prominent duct at 6:00 3 cm out from the nipple and a simple cyst at 8:00 9 cm out from the nipple. Impression: Stable hypoechoic lesion at 7:00 4.5 cm out from the nipple. Recommend another 6 month followup to establish stability for a period of a year. BI-RADS Category Assessment 3: Probably benign. Of note, the patient is due for a bilateral screening mammography in January 2010. Results and recommendations were discussed with the patient by the senior living sales counselor at the time of the exam. The patient will be notified of her/his breast imaging results via a lay letter from radiology. Radiology will contact the patient directly regarding any findings which require additional imaging (Category 0) at this time. Overall assessment category 3 Josh Michael Daniels MD MSc IMG US ORDERABLES documented in this encounter Visit Diagnoses Not on filedocumented in this encounter Care Teams Fine Arts Model Relationship Specialty Start Date End Date Unknown, Provider, PCP - General 10/23/09 07/08/10 documented as of this encounter
--- OUTSIDE RECORDS SUMMARY | 2024-03-20 21:38 | XMS_ITS | Encounter Summary ---
Author Organization [facility] Address [address] [place] [address] Care Team Providers Care Spinning Bath Patroller Name Role Phone Unavailable Primary Care Provider Unavailabl e Encounter Details Date Type Department Care Team (Late st Contact Info) Description 05/20/2006 11:00 EST Hospital Encounter [facility] - Other [address] [place] [address] Clarice Murcia MD [address] [place] [phone] Social History Tobacco Use Types Packs/Day [...] 03/21/2024 8:30 EDT Appointment Karin Saul [address] [place] [address] 04/17/2024 10:50 EDT Appointment [facility] Endoscopy - Main [address] [address] Marcellus Walsh MD [address] [place] [address] 5 [place] [phone] 05/01/2024 13:30 EDT Appointment [facility] Breast Imaging - [address] [address] 05/15/2024 15:00 EST Telemedicine [facility] Gastroenterology - [address] [address] Madhu Park MD PhD [address] [place] [address], [facility] 5 [place] [phone] 12/10/2024 11:30 EDT Office Visit [facility] Surgical Oncology - [address] [phone] [facility], PA-C [address] [place] [address], [facility] 2 [place] [phone] documented as of this encounter Visit Diagnoses Not on filedocumented in this encounter
--- OUTSIDE RECORDS SUMMARY | 2024-03-20 21:38 | XMS_ITS | Encounter Summary ---
Author Organization [facility] Address [address] [place] [address] Care Team Providers Care Sales And Service Change Leader Name Role Phone None, Provider Primary Care Provider Unavailabl e Encounter Details Date Type Department Care Team (Late st Contact Info) Description 12/19/2007 Before PRISM Converted Visit (Maple) [facility] - Maple conversion [address] [place] [address] Clarice Murcia MD [address] [place] [phone] Social History Tobacco Use Types Packs/Day Years Used Date Smoking Tobacco: Never Assessed Sex and Gender Information Value Date Recorded Sex Assigned at Not on file Gender Identity Female 05/16/2019 10:23 EST Sexual Orientation Not on file documented as of this encounter Progress Notes * Clarice Murcia MD - 04/03/2009 0126 EDT DIVISION OF SURGICAL ONCOLOGY - BREAST CARE CENTER PROGRESS/FOLLOWUP NOTE - 12/19/2007 SUBHA Arthur comes in today for a semiurgent visit secondary to a lump noted by Dr. Nicki Dover on clinical breast examination. The lump is located in the 2:00 position of the left breast. Sandhya has a history of extreme breast density and bilateral breast lumps. Her last mammogram was in December 2006 and was extremely dense without any significant abnormalities. She has not had diagnostic imaging for this new breast lump. CURRENT MEDICATIONS Advil. ALLERGIES She has no known drug allergies. REVIEW OF SYSTEMS Otherwise negative. She has a hard time finding the lump. Update form has been reviewed. OBJECTIVE On physical examination Sandhya is well-appearing. Her color is good, and her skin is warm and dry.Her sclerae are anicteric. She has no cervical, supraclavicular, or axillary lymphadenopathy. Her breasts are examined in the sitting and supine positions. She has no skin or nipple changes. Careful p alpation does reveal a small, 1-cm lump, which is difficult to feel, about 8 cm from thenipple in the 2:00 location. It feels minimally discrete, but again this is in the background of extremely dense nodular breast tissue. This is the area where I focused on diagnostic ultrasound. There are no other areas that are discretely palpable. There is no associated adenopathy, skin or nipple changes. ULTRASOUND Office ultrasound is performed using the 12 megahertz transducer. Associated with the mass in the upper outer quadrant, 2:00 position, left breast, 8 cm from the nipple, she has some simple cystic areas, which may or may not correlate with the palpable abnormality. These are all smoothly marginated, anechoic, with posterior acoustic enhancement. She has multiple similar cysts throughout her breast tissue and some dilated ectatic ducts centrally. Her left axilla is free of any abnormal-appearinglymph nodes. She has some normal-appearing lymph nodes. Her right breast is free of any ultrasonographic abnormalities. Again, she has some normal-appearing lymph nodes in the right axilla. Diagnostic mammography was requested and performed in our radiology department. Multiple images were taken. As expected, she is noted to be extremely dense, which could obscure a lesion. However, no significant abnormalities were noted. ASSESSMENT/PLAN Patient with palpable lump, upper outer quadrant, likely corresponding to fibrocystic nodular tissue with some small simple cysts in the vicinity. Overall assessment is benign. The patient has been reassured. She will return for her scheduled followup, which is in about six months. Signed by Clarice Murcia MD 12/26/2007 08:48 Clarice Murcia MD - Clarice Murcia MD - RAMSES Job ID: [id number] Doc ID: [id number] cc: MD Nicki Osborn MD documented in this encounter Plan of Treatment Upcoming Encounters Date Type Department Care Team (Late st Contact Info) Description 03/21/2024 8:30 EDT Appointment [facility] [address] [place] [address] 04/17/2024 10:50 EDT Appointment [facility] Endoscopy - [address] [id number] Marcellus Walsh MD [address] [place] [address] [address] [place] [phone] 05/01/2024 13:30 EDT Appointment [facility] Breast Imaging - [address] [id number] 05/15/2024 15:00 EST Telemedicine [facility] Gastroenterology - [address] [address] Madhu Park MD PhD [address] [place] [phone] 12/10/2024 11:30 EDT Office Visit [facility] Surgical Oncology - [address] 1665[address] [facility] PA-C [address] [place] [address], [facility] [address] [place] [phone] documented as of this encounter Visit Diagnoses Not on filedocumented in this encounter Care Teams Sales And Service Change Leader Relationship Specialty Start Date End Date None, Provider PCP - General 12/19/08 10/22/09 documented as of this encounter
--- OUTSIDE RECORDS SUMMARY | 2024-03-20 21:39 | XMS_ITS ---
Author Organization Unknown Address [address] [place] [phone] Phone Care Team Providers Care Pneumatic Tube Fitter Name Role Phone [place] Attending Unavailable Results HEMOCHROMATOSIS MOLECULAR TE STING* - Collect Date/Time: 02/28/2024 11:30 [facility] ID: [id number] [address] [place] [address], [id number] LOINC: 18291-3 Test Value Unit Reference Range Code Code System Flag Result Summary COMPLEX (SEE RESULT AND INTERPRETATION) 13847-9 LOINC Result See Comments 55699-0 LOINC Interpretation See Comments 44319-7 LOINC Specimen WB Whole Blood 67600-8 LOINC Method See Comments 88885-8 LOINC Released By See Comments 43696-8 LOINC US ABD LIMITED ONE ORGAN - C ompleted: 02/28/2024 10:42 LOINC: [facility] RADIOLOGY [place], [place] [address] RADIOLOGY PATIENT SAFETY COORDINATOR REPORT Patient Name: DINA BARRETT MRN: Sex: : Age: [id number] F 1960 63 Account: Accession: Admit: StayType: [id number] 02/28/2024 O Ordered: Order ID: Submitted: Ordering Provider: 02/28/2024 10:10 [id number] PADMA MACHADO Completed: Technologist: Resulted: 02/28/2024 09:20 [facility] 02/28/2024 11:48 Abdominal (Signed Final 02/28/2024 11:48 am) PATIENT INFO: ID #: [id number] : 60 (63 yrs)(F) Name: DINA BARRETT Visit Date: 02/28/2024 10:44 am PERFORMED BY: Attending: Gianni Woodruff MD Performed By: Smooth FRAZIER, RVT, RTMarta Referred By: PADMA ALEJANDRE Location: [facility] SERVICE(S) PROVIDED: UABDLIM - Abdominal Limited Survey Single 65657 Organ or Quadrant - [id number] INDICATIONS: Reason US Abdomen: ELEVATED LIVER ENZYMES Add'l Info: ------ LIVER: ------ Right Lobe Length: 14.8 cm Echogenicity/Echotexture: Normal Portal Veins: Hepatopetal GALLBLADDER: Cholelithiasis: No stones visualized Wall Thickness: 1.83 Focal Tenderness: Negative sonographic Chan's sign BILIARY TRACT: Intrahepatic Ducts: Normal Extrahepatic Ducts: Normal Common Duct Size: 5.4 mm --------- PANCREAS: --------- Head: Normal Size: Tail: Normal Size: Body: Normal Size: RIGHT KIDNEY: Size (cm) L: 14.0 AP: 4.3 TV: 5.9 Cortical Thickness: Normal Cortical Echogenicity: Normal Hydronephrosis: No sonographic evidence ---- IVC: ---- Normal in caliber where visualized. IMPRESSION: Impression: The liver is of normal overall size. There is a subtle diffuse heterogeneity of echotexture, indeterminate etiology. No measurable focal pathology demonstrated. Follow-up with MRI may be helpful in better evaluating hepatic parenchyma. Biliary tree elsewhere unremarkable. Electronically signed by: Gianni Woodruff MD, Radiology 11:42 AM Thank you for letting us participate in the care of this patient. If you are a health care provider and have any questions regarding this report, please contact the number above. For patients who have questions, please contact the health home health care case manager that requested your imaging first. Gianni Woodruff Electronically Signed Final Report 02/28/2024 11:48 am Social History Type Status Start Date End Date Code Code Syst em Smoking History Never smoker (Never Smoked) [id number] SNOMED CT Sex Female Hospital Discharge Instructions Should you have any questions prior to discharge, please contact a member of your healthcare team. If you have left the hospital and have any questions, please contact your primary care physician. Reason For Referral No Data Found Plan of Treatment LAB DRAW 15MIN 02/28/2024 US ABDOMEN LIMITED 1 ORGAN 02/28/2024 Encounters Encounter Diagnosis Start Date Code Code Sys tem Elevated liver enzymes level 02/28/2024 816104343 SNOMED-CT Personal Care Team Section Performer Name Performer Role Active Date Inactive Da te Imaging Narrative Notes US ABD LIMITED ONE ORGAN [facility] null ERROR NOTE CONTENT UNAVAILABLE: Failed to copy:/usr1/xr14/22/[id number] to /usr1/xr14//[id number].txt
--- OUTSIDE RECORDS SUMMARY | 2024-03-20 21:39 | XMS_ITS | Clinical Summary ---
Author Organization [facility] Address [facility] [place] [address] Care Team Providers Care Fiber Optics Supervisor Name Role Phone Unavailable Primary Care Provider Unavailabl e Encounters Date Type Department Care Team Description 02/28/2024 Interpretation Only [facility] in [address] [phone] Rocio Hendrix MD from Last 3 Months Social History Tobacco Use Types Packs/Day Years Used Date Smoking Tobacco: Never Assessed Sex and Gender Information Value Date Recorded Sex Assigned at Not on file Gender Identity Not on file Sexual Orientation Not on file Plan of Treatment Health Maintenance Due Date Last Done Comments CT Colonography 1960 Colonoscopy 1960 Colorectal Cancer Screening 1960 FIT DNA 1960 FIT 1960 Sigmoidoscopy (10 year) with FIT yearly 1960 Sigmoidoscopy 1960 HIV screen 1978 Hepatitis C Screening 1978 Tdap adult 1979 Tetanus vaccine 1979 HPV test 1990 PAP Smear 1990 Breast Cancer Share Decision Needed 2000 Breast Cancer screening 2000 Zoster vaccine (1 of 2) 2010 Advance Directive 2015 Covid-19 Vaccine ( season) 2024 Influenza (Flu) vaccine (1 o f 1 - Influenza standard series) 03/11/2024 Procedures Procedure Name Priority Date/Time Associated Diagnosis Comments US ABDOMEN LIMITED Routine 02/28/2024 10 :42 AM EDT from Last 3 Months Results * US Abdomen Limited (02/28/2024 10:42 AM EDT) PT CLASS O RAD ADMITDTTM [id number] RAD PT RAD INFO [id number]^TARMARCELINOG ANH^ROCIO RAD EXAM DESC UABDLIM^US ABD LIMITED ONE ORGAN^RIS RAD WORKSTATION ID [id number] [facility] Anatomical Region Laterality Modality Abdomen Ultrasound 02/28/2024 10:4 4 AM EDT Impressions 02/28/2024 11:48 AM EDT Impression: The liver is of normal overall size. There is a subtle diffuse heterogeneity of echotexture, indeterminate etiology. No measurable focal pathology demonstrated. Follow-up with MRI may be helpful in better evaluating hepatic parenchyma. Biliary tree elsewhere unremarkable. Electronically signed by: Gianni Woodruff MD, [facility] ([phone]), at 02/28/2024 11:42 AM Thank you for letting us participate in the care of this patient. If you are a health care provider and have any questions regarding this report, please contact the number above. For patients who have questions, please contact the health out of school hours care worker that requested your imaging first. ?Gianni Woodruff Electronically Signed Final Report ?? 02/28/2024 11:48 am Narrative 02/28/2024 11:48 AM EDT Abdominal ? (Signed Final 02/28/2024 11:48 am) PATIENT INFO: ID #: ? [id number] ?: ??60 (63 yrs)(F) Name: ? DINA BARRETT ? Visit Date: 02/28/2024 10:44 am PERFORMED BY: Attending: ?Kacy BABB, Gianni Enrique Performed By: ? Smooth RDMS, RVT, RTMarta Referred By: ?ROCIO HILL Location: ? [facility] SERVICE(S) PROVIDED: UABDLIM - Abdominal Limited Survey Single ? 26602 Organ or Quadrant - [id number] INDICATIONS: Reason US Abdomen: ??ELEVATED LIVER ENZYMES ??Add'l Info: ------ LIVER: ------ Right Lobe Length: ?? 14.8 ?? cm Echogenicity/Echotexture: ?? Normal Portal Veins: ?Hepatopetal GALLBLADDER: Cholelithiasis: ?No stones visualized Wall Thickness: ?1.83 Focal Tenderness: ?Negative sonographic Chan's sign BILIARY TRACT: Intrahepatic Ducts: ?? Normal Extrahepatic Ducts: ?? Normal Common Duct Size: ? 5.4 ? mm --------- PANCREAS: --------- Head: ?Normal ?Size: Tail: ?Normal ?Size: Body: ?Normal ?Size: RIGHT KIDNEY: Size (cm) ?L: ??14.0 ?AP: ??4.3 ? TV: ??5.9 Cortical Thickness: ?Normal Cortical Echogenicity: ?? Normal Hydronephrosis: ?No sonographic evidence ---- IVC: ---- Normal in caliber where visualized. Procedure Note Gianni Woodruff MD - 02/28/2024 Abdominal (Signed Final 02/28/2024 11:48 am) PATIENT INFO: ID #: [id number] : 60 (63 yrs)(F) Name: DINA BARRETT Visit Date: 02/28/2024 10:44 am PERFORMED BY: Attending: Gianni Woodruff MD Performed By: Smooth FRAZIER, MARYT, RTMarta Referred By: ROCIO HENDRIX Location: [facility] SERVICE(S) PROVIDED: UABDLIM - Abdominal Limited Survey Single 07624 Organ or Quadrant - [id number] INDICATIONS: Reason US Abdomen: ELEVATED LIVER ENZYMES [...] IVC: ---- Normal in caliber where visualized. IMPRESSION Impression: The liver is of normal overall size. There is a subtle diffuse heterogeneity of echotexture, indeterminate etiology. No measurable focal pathology demonstrated. Follow-up with MRI may be helpful in better evaluating hepatic parenchyma. Biliary tree elsewhere unremarkable. Electronically signed by: Gianni Woodruff MD, [facility] ([phone]), at 02/28/2024 11:42 AM Thank you for letting us participate in the care of this patient. If you are a health care provider and have any questions regarding this report, please contact the number above. For patients who have questions, please contact the health out of school hours care worker that requested your imaging first. Gianni Woodruff Electronically Signed Final Report 02/28/2024 11:48 am Rocio Hendrix MD IMG US GEN ORDERABLE S from Last 3 Months
--- OUTSIDE RECORDS SUMMARY | 2024-03-20 21:39 | XMS_ITS ---
Author Organization [facility] Address [address] [place] [address], [address] [place] [address] Care Team Providers Care Defensive Driving Instructor Name Role Phone Akira BABB, Indy Primary Care Provider Leatha Gannon CNM, MEDICATION ASSISTANT, Mar Unavailable REASON FOR VISIT AE Encounters Encounter Location Date Provider Diagnosis [facility] [address] [facility], [address] [place] [address] 04/12/2023 Mar Gannon Plan Of Treatment Next Appt Details Provider Name:Mar rousseau, 09/06/2024 01:00:00 PM, [address] [facility], [address], [place], [address], Progress Notes * Ofelia BARRETThDOB: (63 yo F)Acc No.[id number]:04/12/2023 Progress notes Patient:?Sandhya BARRETT Provider:?Mar Gannon APRN :1960???Age:62 Y???Sex:Female D ate:04/12/2023 Address:[facility] [address], [place], [place] Pcp:Indy Champion MD Subjective: * Chief Complaints: * ???1. AE. * Medical History:? Objective: * Vitals:? Assessment: Plan: * Treatment: * Images: * Electronic signature of Luznasreen Gannon CNM, APRN on 03/20/2024 at 09:39 PM EDT Sign off status: Pending * Provider:?Mar Gannon APRN Date: ?04/12/2023 Generated for Awilda omalley/Waldo/Mylene on:?03/20/2024 09:39 PM EDT
--- OUTSIDE RECORDS SUMMARY | 2024-03-20 21:39 | XMS_ITS | Patient Health Record ---
Author Organization [facility] Address [address], [address] [place] [address] Care Team Providers Care Security Agent Name Role Phone Akira BABB, Indy Primary Care Provider Unavail anatoly Gannon CNM, LEGAL EXECUTIVE, Mar Unavailable Allergies No Known Allergies Reason For Referral No Information Medications Medication SIG (Take, Route, Fr equency, Duration) Notes Start Date End Date Status valACYclovir HCl Not -Taking Acyclovir Not-Taking Estrace 0.1 MG/GM 1 gram vaginal and t o vaginal opening nightly x 2 weeks and then 2 nights/ week for 90 days 11/25/2020 Not-Taking Niacinamide Not-Taki ng Flaxseed Oil Not-Jurgen ing Vitamin E Not-Taking Advil PRN Active Vitamin D Active Problems Problem Type SNOMED Code ICD Code Onset Dates Problem Status W/U Status Risk Notes Problem 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 [address] 05/26/2023 Mar Gannon Encounter for gynecological examination (general) (routine) without abnormal findings Z01.419 and Postmenopausal atrophic vaginitis N95.2 [facility] [address] [facility], [address] [place] [address] 02/15/2024 Mar Gannon Assessments Encounter Date Diagnosis (ICD Code) Assessment Notes Treat ment Notes Treatment Clinical Notes 05/26/2023 Postmenopausal atrophic vaginitis (ICD-10 - N95.2) We discussed the vaginal and vulvar changes that occur with menopause. She is asymptomatic and declines estradiol for local use at this time. 05/26/2023 Encounter for gynecological examination (general) (routine) without abnormal findings (ICD-10 - Z01.419) Continue healthy habits. Discussed health screening recommendations. Mammogram guidelines discussed. Return for yearly Premium Auditor preventive exam and as needed for problems. Additional health care maintenance with primary care provider. Pap / HPV every 5 years due in 2024. Continue Calcium rich foods, Vit D supplement, and wt bearing exercise. Consider early DXA, and she will f/u with PCP. Plan Of Treatment Next Appt Details Provider Name:Mar rousseau, 09/06/2024 01:00:00 PM, [address], [address], [place], [address], Insurance Providers Payer Name Payer Address Payer Phone Subscriber Number Group Number Insured Name Patient Relationship to Insured Coverage Start Date Coverage End Date [facility] [address] [place] [phone] [id number] Sandhya Lomas Self - patient is the insured Medical (General) History Medical History History ICD Code Hx of basal cell carcinoma Migraines w/ aura Severe osteoarthritis, R hip Extremely dense breasts; hx left benign breast bx; yearly mammo and u/s No hx abnl paps, per pt Last pap 11/25/2020, NIL, HPV neg Surgical History Surgery Date(Month/Year) Mohs surgery 11/2009 Dermoid cyst removal 1987 C section x 2 1995, 1997 R Total Hip Replacement 01/01/2022 Mohs surgery 05/2022
--- OUTSIDE RECORDS SUMMARY | 2024-03-20 21:39 | XMS_ITS ---
Author Organization Unknown Address [address] [place] [phone] Phone Care Team Providers Care Produce Wrapper Name Role Phone LUCIEN ALEJO Attending Unavailable MARIN OLIVERA Primary Unavailable Social History Type Status Start Date End Date Code Code Syst em Smoking History Never smoker (Never Smoked) 250191129 SNOMED CT Sex Female Hospital Discharge Instructions [...] Diagnosis Start Date Code Code Sys tem Idiopathic osteoarthritis 09/03/2021 094051063 SN OMED-CT Personal Care Team Section Performer Name Performer Role Active Date Inactive Da te
--- OUTSIDE RECORDS SUMMARY | 2024-03-20 21:39 | XMS_ITS | Patient Health Record ---
Author Organization [facility] Address [address] [place], [place] [id number] Care Team Providers Care Shoer Name Role Phone JOSELIN FUNES Primary Care Provider [phone] Allergies No Known Allergies Results Component Value Reference Range Notes Mammogram Performed Reviewed date:11/25/2023 02:58:40 PM Interpretation:neg Performing Lab: Notes/Report: neg Mammogram Result neg Reason For Referral No Information Medications Medication SIG (Take, Route, Frequency, Duration) Notes Start Date End Date Status Valtrex 1 GM 1 tablet Orally BID with outbreak Active Immunizations Vaccine Route Administration Date Status Comme nts Tdap Unknown 05/27/2015 Administered Shingrix Unknown 03/04/2021 Administered Shingrix Unknown 05/18/2021 Administered Covid-19 Pfizer Dose 2 Unknown 10/27/2020 Administered Covid-19 Pfizer Dose 1 Unknown 10/05/2020 Administered Covid-19 Pfizer Unknown 05/26/2021 Administered Problems Problem Type SNOMED Code ICD Code Onset Dates Problem Status W/U Status Risk Notes Problem 948322928 Menopause (Z78.0) Active confirmed Problem 409288812 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) Active confirmed Problem 156173290823302 Primary osteoarthritis of right hip (M16.11) Active confirmed Problem 24441945626790097 Plantar fascii tis of right foot (M72.2) Active confirmed Vital Signs Heart Rate 64 /min 08/31/2023 Temperature 97.9 degrees Fahrenheit 08/31/2023 Blood pressure diastolic 68 mmHg 08/31/2023 Height 66 in 08/31/2023 Blood pressure systolic 120 mmHg 08/31/2023 Encounters Encounter Location Date Provider Diagnosis [facility] [address] [phone] 08/31/2023 JOSELIN FUNES Pain of right breast N64.4 Assessments Encounter Date Diagnosis (ICD Code) Assessment Notes Treatment Notes Treatment Clinical Notes 08/31/2023 Pain of right breast (ICD-10 - N64.4) I do not appreciate evidence of an infection. This may just be some bruising from having to carry her dog repetitively who is aging and incontinent. We discussed a monitor. Certainly if she gets redness swelling fever or other symptoms she will let me know. Plan Of Treatment No Information Insurance Providers Payer Name Payer Address Payer Phone Subscriber Number Group Number Insured Name Patient Relationship to Insured Coverage Start Date Coverage End Date [facility] [address] [place] [phone] [id number] Sandhya Lomas Self - patient is the insured Medical (General) History Medical History History ICD Code History of basal cell carcinoma- face an d right vázquez Actinic keratoses Menopause Recurrent herpes labialis Surgical History Surgery Date(Month/Year) Dermoid cyst removal Age 27
--- OUTSIDE RECORDS SUMMARY | 2024-03-20 21:39 | XMS_ITS ---
Author Organization [facility] Address [address], [address] [place] [address] Care Team Providers Care Unishear Operator Name Role Phone Indy Champion MD Primary Care Provider Unavail anatoly Gannon CNM, USED CAR MANAGER, Mar Unavailable REASON FOR VISIT New Appointment Request Encounters Encounter Location Date Provider Diagnosis [facility] [address], [address] [place] [address] 02/15/2024 Mar Gannon Plan Of Treatment Next Appt Details Provider Name:Mar rousseau, 09/06/2024 01:00:00 PM, [address], [address], [place], [address], Progress Notes * Ofelia BARRETThDOB: (63 yo F)Acc No.[id number]:02/15/2024 Patient:?Sandhya BARRETT :1960???Age:63 Y???Sex:Female Address:[address] [place] [address] [place], [address] * true * Date:? Generated for Printi ng/Faxing/eTransmitting on:?03/20/2024 09:39 PM EDT
--- OUTSIDE RECORDS SUMMARY | 2024-03-20 21:39 | XMS_ITS | Data Portability ---
Author Organization [facility], [facility] Address [address] [place] [address] Care Team Providers Care Pain Coordinator Name Role Phone JOSELIN FUNES Primary Care Provider [phone] Assessment No assessment recorded. Plan of Treatment Reminders Order Date Submit Date Provider Last Modified By Organization Details Last Modified Time Details Appointments None recorded. Lab None recorded. Referral None recorded. Procedures None recorded. Surgeries None recorded. Imaging XR, hip, unilateral [email or web address], [address], 11:18:48 Medication Orders None recorded. Patient TargetsNo targets recorded. Patient Instructions Encounter Date Encounter Id Patient Instructions Last Modified By Organization Details Last Modified Time 10/05/2021 [id number] Anne's clinical exam today shows significant range of motion deficit especially with internal/external rotation as well as hyperextension and abduction. Her x-rays confirm she has advanced osteoarthritis of this right hip. We discussed treatment options for her and I recommend that she consider moving forward with total hip replacement as cortisone injection would buy her only weeks at a time and really would not solve her issue. She is very interested in surgical intervention and she like to get back to her normal exercise routine especially hiking. She prefers to go [facility] and actually had a couple of names already given to her. She is going to follow-up with 1 of those physicians that she has been given the name of. I will also let that physician( Dr. Mahan) know that she will be calling. Not available 10/05/2021 09:58:51 Reason for Referral None Reported. Results Created Date Observation Date Name Description Value Unit Range Abnormal Flag Note LastModifiedBy Organization Detail LastModifiedTime 09/30/19 XR, hip, unila teral No observ ation record ed. Not Available 2021 08:08:01 09/30/19 XR, hip + pelvi s, bilat eral No observ ation record ed. Not Available 2021 08:08:03 10/06/19 XR, hip, unila teral No observ ation record ed. [employer] [address] [place] [address], [address] 10/05/2021 16:36:15 10/06/19 XR, hip, unila teral No observ ation record ed. [address], [address], 10/05/2021 09:55:20 Result Notes None recorded. Problems Name Problem SNOMED Code Status Onset Date Resolution Date Notes Provider Name and Address Organization Details Recorded Time Osteoarthritis of hip 343264217 Active 2021 URI NOVOA [address] [place] [address], [phone] [place] [address] [facility] 09:55:39 Problem Notes None recorded. Procedures Surgical History None recorded. Imaging Results Imaging Date Name Status [facility] Details LastModified Time 09/29/2021 XR, hip, unilateral completed Information not available 09/29/2021 08:08:01 09/29/2021 XR, hip + pelvis, bilateral completed Information not available 09/29/2021 08:08:03 10/05/2021 XR, hip, unilateral completed [address], [place], [address] 10/05/2021 16:36:15 10/05/2021 XR, hip, unilateral completed [address], [address], 10/05/2021 09:55:20 Procedure Notes None recorded. Medical Equipment None Reported. Allergies No known drug allergies Medications Name Sig Start Date Stop Date Status Note LastModified by Organization Details LastModified Time valacyclovi r 1 gram tablet TAKE 1 TABLET BY MOUTH TWICE A DAY WITH OUTBREAK active Not Available Not Available No t Available estradiol 0.01% (0.1 mg/gram) vaginal cream INSERT 1 GRAM VAGINALLY NIGHTLY FOR 2 WEEKS, AND THEN USE 2 NIGHTS PER WEEK 10/05 completed Not Available Not Available Not Available Vitals Date Recorded Body temperature Body height Body mass index (BMI) Body weight Provider Name and Address Organization Details Last Updated DateTime 10/05/2021 97.6 [degF] 165.1 cm 21.3 kg/m2 23213.82 g Myra Vasquez [facility] 10/05/2021 09:29:34 Social History Question Answer Notes LastModified by Organizat ion Details LastModified Time Tobacco Smoking Status Never [facility]oker [facility] 10/05/2021 09:27:49 What Is Your Level Of Alcohol Consumption? Moderate Information not available 10/05/2021 Are You Deaf Or Do You Have Serious Difficulty Hearing? No Information not available 10/05/2021 Which Illicit Or Recreational Drugs Have You Used? 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 Right Information not available 10/05/2021 At What Age Did You Start Smoking Tobacco? 0 Information not available 10/05/2021 How Much Tobacco Do You Smoke? No Information not available 10/05/2021 Sex: Unknown Functional Status Question Answer Note LastModified by Organization D etails LastModified Time What is your exercise level? Moderate Information not available 10/05/2021 Mental Status None recorded. Family History Relationship Description Onset Age of this Age Resolved Age Notes Father Diabetes mellitus 38 79 Mother Family history of malignant neoplasm 68 70 Mother Arthritis 38 Medical History Condition Response Coronary Artery Disease N Dyslipidemia N Gout N Artificial Joints N Thyroid Problems N Lung Disease N Depression N Pacemaker N Anemia N Back Pain N Hearing Impairment N Anesthesia Complications N Heart Attack (NE) N Headaches/Migraines N Deep Vein Thrombosis N Diabetes N Anxiety Disorder N Bleeding Disorder N Seizures/Epilepsy N Arthritis N Cardiac Stent N Blood Clot N Tuberculosis N AIDS/HIV N Inflammatory Bowel Disease N Acid Reflux (GERD) N Cancer Y Stroke N Substance Abuse N Peripheral Vascular Disease N Asthma/COPD N Wears Glasses/Contacts N Hepatitis N Organ Transplant N Heart Disease N Rheumatoid Arthritis N Pulmonary Embolism N Fibromyalgia N Stomach Ulcer N Hypertension N Osteoporosis N Kidney Disease N Gynecological HistoryNo gynecological history recorded. Obstetrics History GPAL:G 0 P 0 0 0 0 Immunizations Vaccine Type Date Status Provider Name and Address Organization Details Recorded Time COVID-19, mRNA, LNP-S, PF, 30 mcg/0.3 mL dose 05/27/2021 completed Myra Vasquez [facility] 10/05/2021 09:30:30 Past Encounters Encounter ID Performer Location Encounter Start Date Encounter Closed Date Diagnosis/Indication Diagnosis SNOMED-CT Code Diagnosis ICD10 Code [id number] URI N[facility]OA [address] [address] 10/05/2021 09:15:25 10/05/2021 11:18:48 Hip pain 98813975 M25.551 Osteoarthritis of hip 23 1687062 M16.11 Health Concerns Section Related Observation LastModified by Organization Detai ls LastModified Time None Recorded Concern Status LastModified by Organization Details LastModified Time None Recorded Advance Directives Directive None Recorded Payers Encounter Date Sequence Insurance Name Policy Number Policy Hendrickson Covered Member ID Hendrickson Member ID Guarantor Name 10/05/2021 1 [place] [facility] [id number] Sandhya Lomas [id number] Sandhya Lomas Notes Date Note Type Note Provider Name and Address Organization Details Recorded Time 10/05/2021 text/html HPI Notes: Anne presents today for initial evaluation with complaints of right hip pain. She is the of longtime patient of ours Manjeet Lomas. She states that she has been having stiffness and right hip pain for well over a year at this point but sometime over the [place] some deep snow tweaking her right hip and since that fall has had consistent right hip pain and has noticed loss range of motion and changes to her gait. 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 She had x-rays taken today. She denies any back pain or any lower leg numbness or tingling or weakness. URI NOVOA [address] [place] [address], [phone], [facility] [place] 10/05/2021 09:59:12 OBGyn Episode No OBEpisode recorded.
--- OUTSIDE RECORDS SUMMARY | 2024-03-20 21:39 | XMS_ITS ---
Author Organization [facility] Address [address] [place], [place] [id number] Care Team Providers Care Pin Sorter And Bagger Name Role Phone JOSELIN CHAMPION Primary Care Provider Allergies No Known Allergies REASON FOR VISIT breast pain Medications Medication SIG (Take, Route, Frequency, Duration) Notes Start Date End Date Status Valtrex 1 GM 1 tablet Orally BID with outbreak Active Vital Signs Temperature 97.9 degrees Fahrenheit 08/31/19 24 Height 66 in 08/31/2023 Blood pressure systolic 120 mmHg 08/31/19 24 Blood pressure diastolic 68 mmHg 024 Heart Rate 64 /min 08/31/2023 Encounters Encounter Location Date Provider Diagnosis [facility] [address] [place], [place] [id number] 08/31/2023 JOSELIN CHAMPION Pain of right breast N64.4 Assessments Encounter [...] will let me know. Plan Of Treatment Next Appt Details Follow Up: prn, Reason: Progress Notes * Sandhya BARRETT BDOB: [birth year] (63 yo F)Acc No.[id number]:08/31/2023 Patient:?Sandhya BARRETT Provider:?Joselin Champion MD :1960???Age:63 Y???Sex:Female D ate:08/31/2023 Address:[phone] Subjective: * Chief Complaints: * ???Breast pain * HPI: ???TFM History Taken by Nursing Staff:? R breast pain that started tuesday night. no redness, swelling, or warmth. no fever. no lump. ???TFM Acute visit:? feels infected. painful no fever. no d/c. moving incontinent dog-who is a corgi and she needs to hold up against her chest so not sure if maybe she is just bruised herself. Has had a recent mammogram. Is just wondering what she should do. Does not feel sick. * Medical History:? 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 * OB History:?Total living children?2.? * Surgical History:? * Hospitalization/Major Diagno stic Procedure:? * Medications:?TakingValtrex 1 GM Tablet 1 tablet Orally BID with outbreak Medication List reviewed and reconciled with the patientTaking Valtrex 1 GM Tablet 1 tablet Orally BID with outbreak Medication List reviewed and reconciled with the patient * Allergies:?N.K.D.A.no[Allerg ies Verified] Objective: * Vitals:?Nurse Initials: RW, Temp:97.9F, Height: 66 in, BP:120/68mmHg, HR:64/min, Ht-cm: 167.64 cm. * Examination: ???General Examination: ?GENERAL APPEARANCE:?in no acute distress, well developed, well nourished.?BREASTS:?Right breast without dominant mass, no nipple discharge, no erythema, no firmness. Minimally tender right medial breast at the 2 o'clock position without mass. No axillary lymphadenopathy.? Left breast symmetric to the right no axillary lymphadenopathy. No nipple discharge. Nontender..? Assessment: * Assessment: 1.?Pain of right breast - N6 4.4 (Primary)? Plan: * Treatment: * Procedure Codes:? * Follow Up:?prn * Billing Information: * Visit Code:? 26561 Office Visit, Est Pt., Level 3. * Procedure Codes:? * Sign off status: Completed true * Provider:?Joselin Champion MD Date:?08/31 Generated for Awilda omalley/Waldo/eTransmitting on:?03/20/2024 09:38 PM EDT History and Physical Notes * Examination Category Sub-Category Detail Notes General Examination GENERAL APPEARANCE: in no ac [place] distress, well developed, well nourished BREASTS: Right breast without dominant mass, no nipple discharge, no erythema, no firmness. Minimally tender right medial breast at the 2 o'clock position without mass. No axillary lymphadenopathy. Left breast symmetric to the right no axillary lymphadenopathy. No nipple discharge. Nontender.
--- OUTSIDE RECORDS SUMMARY | 2024-03-20 21:39 | XMS_ITS ---
Author Organization Unknown Address [address] [place] [phone] Phone Care Team Providers Care Video Game Programmer Name Role Phone MARIN OLIVERA Attending Unavailable Results COMPREHENSIVE METABOLIC PANE L (CMP) - Collect Date/Time: 07/29/2021 07:30 [facility] ID: [id number] [address] [place] [address], [address] LOINC: 52811-5 Test Value Unit Reference Range Code Code System Flag GLUCOSE 91 mg/dL L=70 H=116 2345-7 LOINC BUN 11 mg/dL L=6 H=25 3094-0 LOINC CREATININE 0.60 mg/dL L=0.51 H=0.95 2160-0 LOINC SODIUM SERUM 144 mmol/L L=136 H=145 2951-2 LOINC POTASSIUM SERUM 4.9 mmol/L L=3.4 H=5.2 2823-3 LOINC CHLORIDE SERUM 106 mmol/L L=96 H=110 2075-0 LOINC CARBON DIOXIDE (CO2) 32 mmol/L L=22 H=34 2028-9 LOINC ANION GAP 6.5 mmol/L 60164-6 LOINC CALCIUM SERUM 8.8 mg/dL L=8.2 H=10.2 16915-4 LOINC BILIRUBIN TOTAL 0.7 mg/dL L=0.0 H=1.3 1975-2 LOINC ALK. PHOS. 82 U/L L=46 H=116 6768-6 LOINC SGOT (AST) 44 U/L L=15 H=37 1920-8 LOINC H SGPT (ALT) 54 U/L L=12 H=78 1742-6 LOINC TOTAL PROTEIN 6.6 gm/dL L=6.0 H=8.0 2885-2 LOINC ALBUMIN 3.8 gm/dL L=3.4 H=5.0 1751-7 LOINC AGE 61 years eGFR (non-Afr.Amer.) 102 mL/min 15372-6 LOINC eGFR (Afr-Surinamese) > 120 mL/min 00325-6 LOINC LIPID PANEL* - Collect Date/ Time: 07/29/2021 07:30 [facility] ID: [id number] [address] [place], [place], [id number] LOINC: Test Value Unit Reference Range Code Code System Flag FASTING STATUS: FASTING CHOLESTEROL 170 mg/dL L=0 H=200 2093-3 LOINC TRIGLYCERIDES 37 mg/dL L=57 H=256 2571-8 LOINC L HDL 89 mg/dL L=38 H=92 2085-9 LOINC non-HDL-C 81 mg/dL L=0 H=160 99121-0 LOINC LDL (CALC) 74 mg/dL L=0 H=130 34282-4 LOINC % HDL 52.4 % Chol/HDL Ratio 1.9 L=0.0 H=4.4 9830-1 LOINC CHD Relative Risk 0.4 x Avg L=0.0 H=1.0 LDL/HDL Ratio 0.8 L=0.0 H=3.2 16134-1 LOINC CHD Relative Risk. 0.2 x Avg L=0.0 H=1.0 CBC W/ DIFFERENTIAL* - Colle ct Date/Time: 07/29/2021 07:30 [facility] ID: [id number] [address] [place] [address], [address] LOINC: 51119-4 Test Value Unit Reference Range Code Code System Flag WBC 4.19 th/cmm L=5.00 H=10.00 6690-2 LOINC L NEUT % 42.4 % L=40.0 H=80.0 LYMPH % 43.2 % L=10.0 H=50.0 MONO % 9.3 % L=2.0 H=12.0 66393-9 LOINC EOS % 4.1 % L=0.0 H=8.0 BASO % 1.0 % L=0.0 H=3.0 IG % 0.0 % L=0.0 H=1.1 2514-8 LOINC NRBC % 0.0 % L=0.0 H=0.0 71545-8 LOINC NEUT abs count 1.8 th/cmm L=1.6 H=8.4 751-8 LOINC LYMPH abs count 1.8 th/cmm L=1.5 H=4.0 731-0 LOINC MONO abs count 0.4 th/cmm L=0.2 H=1.0 742-7 LOINC EOS abs count 0.2 th/cmm L=0.0 H=0.5 711-2 LOINC BASO abs count 0.0 th/cmm L=0.0 H=0.2 704-7 LOINC IG abs count 0.0 th/cmm L=0.0 H=0.1 98648-3 LOINC NRBC abs count 0.0 mil/cmm L=0.0 H=0.0 90826-4 LOINC RBC 3.80 mil/cmm L=3.90 H=5.40 789-8 LOINC L HEMOGLOBIN 12.2 gm/dL L=12.0 H=16.0 718-7 LOINC HEMATOCRIT 37 % L=37 H=47 4544-3 LOINC MCV 97 fL L=82 H=92 787-2 LOINC H MCH 32.1 pg L=27.0 H=31.0 785-6 LOINC H MCHC 33.2 % L=32.0 H=36.0 786-4 LOINC RDW-SD 45.4 fL L=39.0 H=49.0 788-0 LOINC PLATELET COUNT 219 th/cmm L=150 H=450 777-3 LOINC Social History Type Status Start Date End Date Code Code Syst em Smoking History Never smoker (Never Smoked) [id number] SNOMED CT Sex Female Hospital Discharge Instructions [...] Diagnosis Start Date Code Code Sys tem Adult health examination 07/29/2021 [id number] [facility] MED-CT Personal Care Team Section Performer Name Performer Role Active Date Inactive Da te
--- OUTSIDE RECORDS SUMMARY | 2024-03-20 21:39 | XMS_ITS | Encounter Summary ---
Author Organization [facility] Address [address] [place] [address] Care Team Providers Care Artificial Flowers Starcher Name Role Phone Unavailable Primary Care Provider Unavailabl e Encounter Details Date Type Department Care Team (Late st Contact Info) Description 08/05/2003 10:37 EST Hospital Encounter [facility] - Other [address] [place] [address] Agnieszka Simpson MD Social History Tobacco Use [...] 03/21/2024 8:30 EDT Appointment Karin Saul [address] [place], [place] [address] 04/17/2024 10:50 EDT Appointment [facility] Endoscopy - [facility] [address] [place], [place] [phone] Marcellus Walsh MD [address] [facility], [facility] [address] [place] [phone] 05/01/2024 13:30 EDT Appointment [facility] Breast Imaging - [facility] [address] [place], [place] [phone] 05/15/2024 15:00 EST Telemedicine [facility] Gastroenterology - [address] [phone] Madhu Park MD PhD [address] [facility] [address] [place] [address] 12/10/2024 11:30 EDT Office Visit [facility] Surgical Oncology - [address] [phone] Magnolia Blood PA-C [address] [facility], [facility] [address] [place] [phone] documented as of this encounter Procedures Procedure Name Priority Date/Time Associated Diagnosis Comments CYTOPATHOLOGY Routine 08/05/2003 0:00 EST SURGICAL PATHOLOGY Routine 08/05/2003 0:00 EST documented in this encounter Results * CYTOPATHOLOGY (08/05/2003 0:00 EST) Pathology Report: CYTOPATHOLOGY REPORT Reports generated via electronic interface contain original data; however they are lacking the format of the original report. Caution should be taken when reading/interpreti ng unformatted reports. Name: ? SANDHYA BARRETT ? Accession #: ? [id number] : ? 1960 (Age: 43) ??F ?Collect Date: ? 08/05/2003 Location: ? [facility] ? Receive Date: ? 08/07/2003 Provider: ?AGNIESZKA SMIPSON MD Copy to: ? Specimen/Source: ?ThinPrep Pap Test, Cervix/Endocervix Last Menstrual Period: ? 08/02/03 Treatment History: ? Cryotherapy: 1986 Other: ? [facility] - HPV testing requested if ASCUS/KIERRA on the current ThinPrep Pap test. ? SPECIMEN ADEQUACY ? Satisfactory for Evaluation - transformation zone component present GENERAL CATEGORIZATION ? Negative for Intraepithelial Lesion or Malignancy ? Document reviewed and electronically signed by: ? SMITH Modi(ASCP) ? Report Date: ??08/12/2003 14:00 End of Report KATHERYN DALTON 08/05/2003 08/07/2003 Agnieszka Simpson MD PATHOLOGY OR DERABLES Performing Organization Address City/State/[facility] Co de Phone Number KATHERYN DALTON [address] [place] [address] * SURGICAL PATHOLOGY (08/05/2003 0:00 EST) Pathology Report: SURGICAL PATHOLOGY REPORT Reports generated via electronic interface contain original data; however they are lacking the format of the original report. Caution should be taken when reading/interpreti ng unformatted reports. Name: ? SANDHYA BARRETT ? Accession #: ? [id number] ? : ? 1960 (Age: 43) ??F ? Collect Date: ? 08/05/2003 ? Location: ? [facility] ? Receive Date: ? 08/06/2003 ? Provider: AGNIESZKA SIMPSON MD Copy to: ? Final Pathologic Diagnosis: ? Cervix, endocervical canal, polypectomy: 1. ?Polypoid fragments of benign endocervical tissue with marked chronic inflammation, consistent with endocervical polyp. 2. ?Scant fragments of benign squamous mucosa. Document reviewed and electronically signed by: MAGDIEL TREADWELL MD Report ??Date: 08/07/2003 19:43 By the signature above, the attending physician certifies that he/she has personally conducted a gross and/or microscopic examination of the described specimens and rendered or confirmed the above diagnosis. Specimen(s) Received: ? Cervical polyp Clinical History: ? LMP: 08/02/03; clinical diagnosis code: ??622.7 Gross Description: ? Received in formalin labelled Cesilia and cervical polyp are 0.5 x 0.5 x 0.3 cm of multiple red-brown hemorrhagic soft tissue fragments. ??The specimen is entirely submitted in one cassette. ??(Alma Read/[facility] End of Report KATHERYN DALTON 08/05/2003 08/06/2003 8:3 1 EST Agnieszka Simpson MD PATHOLOGY OR DERABLES KATHERYN DALTON [address] [place] [address] documented in this encounter Visit Diagnoses Not on filedocumented in this encounter
--- OUTSIDE RECORDS SUMMARY | 2024-03-20 21:39 | XMS_ITS ---
Author Organization [facility] Address [address], [address] [place] [address] Care Team Providers Care Bag Machine Adjuster Name Role Phone Indy Champion MD Primary Care Provider Unavail anatoly Gannon CNM, AYALA, Mar Unavailable [phone] Allergies No Known Allergies REASON FOR VISIT AE Medications Medication SIG (Take, Route, Fr equency, Duration) Notes Start Date End Date Status Estrace 0.1 MG/GM 1 gram vaginal and t o vaginal opening nightly x 2 weeks and then 2 nights/ week for 90 days 11/25/2020 Not-Taking Niacinamide Not-Taki ng Flaxseed Oil Not-Jurgen ing Vitamin E Not-Taking Vitamin D Active valACYclovir HCl Not -Taking Acyclovir Not-Taking Advil PRN Active Vital Signs Height 65.5 in 05/26/2023 Weight 128 lbs 05/26/2023 BMI 20.97 kg/m2 05/26/2023 Blood pressure systolic 122 05/26/20 23 Blood pressure diastolic 70 023 Encounters Encounter Location Date Provider Diagnosis [facility] [address], [address] [place] [address] 05/26/2023 Mar Gannon Encounter for gynecological examination (general) (routine) without abnormal findings Z01.419 and Postmenopausal atrophic vaginitis N95.2 Assessments Encounter Date Diagnosis (ICD Code) Assessment Notes Treat ment Notes Treatment Clinical Notes 05/26/2023 Encounter for gynecological examination (general) (routine) without abnormal findings (ICD-10 - Z01.419) Continue healthy habits. Discussed health screening recommendations. Mammogram guidelines discussed. Return for yearly Detail Supervisor preventive exam and as needed for problems. Additional health care maintenance with primary care provider. Pap / HPV every 5 years due in 2024. Continue Calcium rich foods, Vit D supplement, and wt bearing exercise. Consider early DXA, and she will f/u with PCP. 05/26/2023 Postmenopausal atrophic vaginitis (ICD-10 - N95.2) We discussed the vaginal and vulvar changes that occur with menopause. She is asymptomatic and declines estradiol for local use at this time. Plan Of Treatment Treatment Notes Assessment Notes Encounter for gynecological examination (general) (routine) without abnormal findings Continue healthy habits. Discussed healt h screening recommendations. Mammogram guidelines discussed. Return for yearly Detail Supervisor preventive exam and as needed for problems. Additional health care maintenance with primary care provider. Pap / HPV every 5 years due in 2024. Continue Calcium rich foods, Vit D supplement, and wt bearing exercise. Consider early DXA, and she will f/u with PCP. Postmenopausal atrophic vaginitis We dis cussed the vaginal and vulvar changes that occur with menopause. She is asymptomatic and declines estradiol for local use at this time. Next Appt Details Follow Up: 1 Year, prn, Reas on: AE Provider Name:Mar rousseau, 09/06/2024 01:00:00 PM, [address] [facility], [address], 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 Sandhya is a 62 y.o. 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 ?No specific concerns today. ?No systemic HT. ?Postmenopausal, LMP at age 57 ?Denies bleeding, spotting, or staining since. ?Currently sexually active, male partner, . MMR. ?In the past has endorsed some pain with intercourse, not a concern today. ?Currently not using Estrace cream. ?No vaginal,urinary or bowel concerns. ?Overall well, no health concerns or updates. ?Last Pap: 11/25/2020, NIL, HPV neg ?Last mammo: ?>05/05/23 Bilat US, Cat 2 Benign (L Cat 1/R Cat 2) ?>11/17/22 Mammo Cat 1 Neg (d-extremely dense). ?Established with Jeremi, sees her yearly between mammo and u/s. ?Last colonoscopy: 2010 per pt report. Did cologuard with PCP, 2021, normal. ?Never had DXA. * ROS:?Overall Review of Systems:?no?Cardiology.?no?Dermatology.?Detail Supervisor?yes,see HPI.?no?Breast.?no?Hematology.?no?Allergies.?no?Endocrinology.?no?Gastroenterolo gy.?no?General.?no?Urologic.?no?HEENT.?no?Musculoskeletal.?Neurology?yes,?migrai ne-stable.?no?Psychiat ry.?no?Respiratory.? * Medical History:? * Detail Supervisor History:?See HPI and PMH /PSH?..? * OB History:?GP?:?2,?P lindsay?2.? * Surgical History:?Mohs surge ry/2009Dermoid cyst removal 1988C section x 2 1995, 1997R Total Hip Replacement 01/01/2022Mohs surgery 05/2022 * Hospitalization/Major Diagno stic Procedure:?Denies Past Hospitalization * Family History:?Father: dashawn coombs (possibly type 1).?Mother: lung cancer.?Siblings: sister: hysterectomy d/t high grade squamous cells in cervix.? * Social History:?Tobacco Use:?no Smoking?.?ETOH:?Several times per week: .. ???Drug/Alcohol:?no Drugs?.? * Medications:?TakingAdvil , N otes: PRNVitamin D Taking Advil , Notes: PRNTaking Vitamin D Not-Taking/PRNEstrace 0.1 MG/GM Cream 1 gram vaginal and to vaginal opening nightly x 2 weeks and then 2 nights/ weekNiacinamide Flaxseed Oil Vitamin E valACYclovir HCl Acyclovir Medication List reviewed and reconciled with the patientNot-Taking/PRN Estrace 0.1 MG/GM Cream 1 gram vaginal and to vaginal opening nightly x 2 weeks and then 2 nights/ weekNot-Taking/PRN Niacinamide Not- Taking/PRN Flaxseed Oil Not-Taking/PRN Vitamin E Not-Taking/PRN valACYclovir HCl Not- Taking/PRN Acyclovir Medication List reviewed and reconciled with the patient * Allergies:?N.K.D.A.no[Allerg ies Verified] Objective: * Vitals:?Ht:65.5, Wt:128, BMI :20.97, BP sittin/70. * Examination: ???AUTOMOBILE CARPETS MOLDER: ?GENERAL:?Well-developed, well-nourished, no acute distress, alert and oriented .?NECK:?no thyromegaly; no thyroid nodules; no cervical lymphadenopathy.?BREASTS:?bilateral breasts normal, no masses, tenderness or skin changes; no dimpling, scarring, retraction or inflammatory changes; no nipple discharge; no axillary adenopathy; symmetrical.?ABDOMEN:?soft, NT, ND, no masses, no HSM .?LYMPH NODES:?subclavicular, axillary, inguinal, normal and nontender.?EXTERNAL GENITALIA:?normal postmenopausal, atrophic changes.?URETHRAL MEATUS:?normal.?URETHRA:?normal.?BLADDER:?normal.?VAGINA:?atrophic changes, no discharge.?CERVIX:?posterior ; no cervical movement tenderness; no lesions or discharge or bleeding.?UTERUS:?normal size, shape and consistency, anteverted, nontender, mobile.?ADNEXA:?no masses or tenderness bilaterally.?ANUS/PERINEUM:?normal tone.?RECTAL EXAM:?deferred.? Assessment: * Assessment: 1.?Encounter for gynecologic al examination (general) (routine) without abnormal findings - Z01.419 (Primary)?2.?Postmenopausal atrophic vaginitis - N95.2? Plan: * Treatment: 2.?Postmenopausal atrophic v aginitis? Notes: We discussed the vaginal and vulvar changes that occur with menopause. She is asymptomatic and declines estradiol for local use at this time.?? * Procedure Codes:? * Follow Up:?1 Year, prn (Reas on: AE) * Images: * Sign off status: Completed true * Provider:?Mar Gannon APRN Date: ?05/26/2023 Generated for Awilda omalley/Waldo/eTransmitting on:?03/20/2024 09:39 PM EDT History and Physical Notes * Examination Category Sub-Category Detail Notes AUTOMOBILE CARPETS MOLDER CERVIX: posterior; no ce rvical movement tenderness; no lesions or discharge or bleeding VAGINA: atrophic changes, no discharge EXTERNAL GENITALIA: normal postmenopausa l, atrophic changes UTERUS: normal size, shape a nd consistency, anteverted, nontender, mobile ADNEXA: no masses or tendern ess bilaterally URETHRA: normal RECTAL EXAM: deferred BREASTS: bilateral breasts no rmal, no masses, tenderness or skin changes; no dimpling, scarring, retraction or inflammatory changes; no nipple discharge; no axillary adenopathy; symmetrical NECK: no thyromegaly; no t hyroid nodules; no cervical lymphadenopathy ABDOMEN: soft, NT, ND, no mas ses, no HSM LYMPH NODES: subclavicular, axill mary, inguinal, normal and nontender URETHRAL MEATUS: normal BLADDER: normal ANUS/PERINEUM: normal tone GENERAL: Well-developed, well -nourished, no acute distress, alert and oriented
--- OUTSIDE RECORDS SUMMARY | 2024-03-20 21:39 | XMS_ITS | Encounter Summary ---
Author Organization [facility] Address [address] [place] [address] Care Team Providers Care Masseur/Masseuse Name Role Phone Unavailable Primary Care Provider Unavailabl e Encounter Details Date Type Department Care Team (Latest Contact Info) Description 09/02/2003 10:29 EST - 09/02/2003 11:59 EST Hospital Encounter [facility] - [facility] [address] [place] [address] Agnieszka Simpson MD Discharge Disposition: Auto Discharge [...] 8:30 EDT Appointment [facility] [address] [place] [address] 04/17/2024 10:50 EDT Appointment [facility] Endoscopy - [facility] [address] [place] [address] Marcellus Walsh MD [address] [facility] [place] [phone] 05/01/2024 13:30 EDT Appointment [facility] Breast Imaging - [address] [address] 05/15/2024 15:00 EST Telemedicine [facility] Gastroenterology - [facility] [address] [place], [place] [phone] Madhu Park MD PhD [address] [facility] [place] [phone] 12/10/2024 11:30 EDT Office Visit [facility] Surgical Oncology - [address] [phone] [employer] [facility] PA-C [address] [facility], [facility] [address] [place] [address] documented as of this encounter Procedures Procedure Name Priority Date/Time Associated Diagnosis Comments MA MAMMO SCREENING DIGITAL Routine 09/02/2003 11:02 EST documented in this encounter Results * MA MAMMO SCREENING DIGITAL (09/02/2003 11:02 EST) Anatomical Region Laterality Modality Other 09/02/2003 11:0 2 EST Impressions 03/19/2009 13:52 EDT IMPRESSION: BILATERAL BREASTS - CATEGORY 1 Negative, no evidence of malignancy. Normal interval follow-up is recommended in 12 months. OVERALL ASSESSMENT - NEGATIVE END OF IMPRESSION Narrative 03/19/2009 13:52 EDT ROUTINE ??HX SOTERO FIBROCYSTIC LUMPS ??- SOTERO GREEN NIPPLE DISCHARGE ??NO NE W PROBLEMS ?? NO PCP [REGilbert SIMPSON, REJI FAJARDO] PT TO H/C PREVIOUS FILMS FROM [facility] Comparison is made to films from 06-05-2001 and 06-19-2002. Bilateral Breast Findings (CAD used to interpret routine digital projection): The breasts are extremely dense which could obscure a lesion on mammography. No significant masses, calcifications or other abnormalities are seen. Procedure Note Carissa Kendall MD - 03/19/2009 ROUTINE HX SOTERO FIBROCYSTIC LUMPS - SOTERO GREEN NIPPLE DISCHARGE NO NE W PROBLEMS NO PCP [REQ AGNIESZKA SIMPSON, REQ GLENN FAJARDO] PT TO H/C PREVIOUS FILMS FROM [facility] Comparison is made to films from 06-05-2001 and 06-19-2002. Bilateral Breast Findings (CAD used to interpret routine digital projection): The breasts are extremely dense which could obscure a lesion on mammography. No significant masses, calcifications or other abnormalities are seen. IMPRESSION IMPRESSION: BILATERAL BREASTS - CATEGORY 1 Negative, no evidence of malignancy. Normal interval follow-up is recommended in 12 months. OVERALL ASSESSMENT - NEGATIVE END OF IMPRESSION Glenn Fajardo MD IMG MAMMOGRAPHY ANITA RIVERA documented in this encounter Visit Diagnoses Not on filedocumented in this encounter
--- OUTSIDE RECORDS SUMMARY | 2024-03-20 21:39 | XMS_ITS | Encounter Summary ---
Author Organization [facility] [place] [address] Care Team Providers Care Marketing Planner Name Role Phone Unavailable Primary Care Provider Unavailabl e Encounter Details Date Type Department Care Team (Late st Contact Info) Description 02/28/2024 Interpretation Only [facility] in [address] [phone] Rocio Hendrix MD [address] [place] [phone] Social History Tobacco Use Types Packs/Day Years Used Date Smoking Tobacco: Never Assessed Sex and Gender Information Value Date Recorded Sex Assigned at Not on file Gender Identity Not on file Sexual Orientation Not on file documented as of this encounter Plan of Treatment Not on file documented as of this encounter Procedures Procedure Name Priority Date/Time Associated Diagnosis Comments US ABDOMEN LIMITED Routine 02/28/2024 10 :42 AM EDT documented in this encounter Results * US Abdomen Limited (02/28/2024 10:42 AM EDT) PT CLASS O RAD ADMITDTTM [id number] RAD PT RAD INFO [id number]^TARTAG ANH^ROCIO RAD EXAM DESC UABDLIM^US ABD LIMITED ONE ORGAN^RIS RAD WORKSTATION ID [id number] RAD Anatomical Region Laterality Modality Abdomen Ultrasound 02/28/2024 10:4 4 AM EDT Impressions 02/28/2024 11:48 AM EDT Impression: The liver is of normal overall size. There is a subtle diffuse heterogeneity of echotexture, indeterminate etiology. No measurable focal pathology demonstrated. Follow-up with MRI may be helpful in better evaluating hepatic parenchyma. Biliary tree elsewhere unremarkable. Electronically signed by: Gianni Woodruff MD, [facility] ([phone]), at 02/28/2024 11:42 AM Thank you for letting us participate in the care of this patient. If you are a health care provider and have any questions regarding this report, please contact the number above. For patients who have questions, please contact the health day care home mother that requested your imaging first. ?Gianni Woodruff Electronically Signed Final Report ?? 02/28/2024 11:48 am Narrative 02/28/2024 11:48 AM EDT Abdominal ? (Signed Final 02/28/2024 11:48 am) PATIENT INFO: ID #: ? [id number] ?: ??[birth year] (63 yrs)(F) Name: ? DINA BARRETT ? Visit Date: 02/28/2024 10:44 am PERFORMED BY: Attending: ?Kacy BABB, Gianni Enrique Performed By: ? Smooth RDMS, RVT, RTMarta Referred By: ?ROCIO HENDRIX Location: ? [facility] SERVICE(S) PROVIDED: UABDLIM - Abdominal Limited Survey Single ? [id number] Organ or Quadrant - [id number] INDICATIONS: Reason US Abdomen: ??ELEVATED LIVER ENZYMES [...] 02/28/2024 11:48 am) PATIENT INFO: ID #: [id number] : 60 (63 yrs)(F) Name: DINA BARRETT Visit Date: 02/28/2024 10:44 am PERFORMED BY: Attending: Gianni Woodruff MD Performed By: Smooth FRAZIER, RVT, RTMarta Referred By: ROCIO HENDRIX Location: [facility] SERVICE(S) PROVIDED: UABDLIM - Abdominal Limited Survey Single 78558 Organ or Quadrant - [id number] INDICATIONS: Reason US Abdomen: ELEVATED LIVER ENZYMES [...] tree elsewhere unremarkable. Electronically signed by: Gianni Wodoruff MD, [facility] ([phone]), at 02/28/2024 11:42 AM Thank you for letting us participate in the care of this patient. If you are a health care provider and have any questions regarding this report, please contact the number above. For patients who have questions, please contact the health day care home mother that requested your imaging first. Gianni Woodruff Electronically Signed Final Report 02/28/2024 11:48 am Rocio Hendrix MD IMG US GEN ORDERABLE S documented in this encounter Visit Diagnoses Not on filedocumented in this encounter
[2024-03-20 21:59] LABS: Anion Gap 5.9 mmol/L (3-11); BUN 11 mg/dL (7-18); CO2 30.1 mmol/L (21.0-32.0); CREATININE 0.7 mg/dL (0.55-1.02); Calcium 9.2 mg/dL (8.5-10.1); Chloride 102 mmol/L (98-107); Estimated GFR 97.12 (mL/min/1.73m2); Glucose 107 mg/dL (74-106); Potassium 4.5 mmol/L (3.5-5.1); Sodium 138 mmol/L (136-145)
== END 2024-03-20 21:34 | disposition home or self-care (01) ==
LOC: NCHCN 21:33
PROVIDERS: PCP Family Medicine; Visit Provider Family Medicine
DX: E87.1 Hypo-osmolality and hyponatremia (principal); E87.8 Other disorders of electrolyte and fluid balance, not elsewhere classified
CPT/HCPCS: 80048

== ENCOUNTER 2024-03-27 20:05 | Outpatient (REF) | payer BC, SELFPAY ==
--- OUTSIDE RECORDS SUMMARY | 2024-03-27 20:08 | XMS_ITS | Clinical Summary ---
Author Organization [facility] Address [address] [place] [address] Care Team Providers Care Acid Washer Operator Name Role Phone Rocio Hendrix MD Primary Care Provider [phone] Allergies No known active allergies Medications Medication [...] cell carcinoma of skin 10/24/2009 Overview: Right presybeterian, s/p Mohs - 11/24/09 Inconclusive mammogram due to dense breasts Overview: Extremely dense breast tissue and diffuse palpable nodularity Encounters Date Type Department Care Team Description 03/21/2024 8:16 EDT - 03/21/2024 23:59 EDT Hospital Encounter [facility] Ul[facility] [address], [place] [address] [phone] Hereditary hemochromatosis ([facility]) Discharge Disposition: Home or Self Care 03/15/2024 Lab Requisition [facility] [address] [address] Lisa Prajapati A Neoplasm of uncertain behavior of skin 02/28/2024 - 02/28/2024 23:59 EDT Hospital Encounter [facility] Secondary Reads [place] Discharge Disposition: Home or Self Care 02/15/2024 Lab Requisition [facility] Medicine [address] [address] Outr Resulting Lab, Provider 02/15/2024 Lab Requisition [facility] [address] [address] Outr Resulting Lab, Provider 02/02/2024 Transcribe Orders [facility] Gastroenterology [address] [address] Rocio Hendrix MD Special screening for malignant neoplasms, colon (Primary Dx) from Last 3 Months Immunizations Name Administration Dates Next Due Tdap Vaccine =>7YO IM 04/21/2011 Surgical History Surgery Date Site/Laterality Comments MOHS SURGERY 11/08/2009 - 12/08/2009 basal cell carcinoma, right presybeterian SECTION 1995, 1997 ABDOMEN SURGERY 07/11/1987 - [...] Care Team (Late st Contact Info) Description 04/23/2024 9:30 EDT Appointment [facility] Endoscopy - [address] [id number] Marcellus Walsh MD [address] [place] [address], [address] [place] [phone] 05/01/2024 13:30 EDT Appointment [facility] Breast Imaging - [address] [phone] 05/15/2024 15:00 EST Telemedicine [facility] Gastroenterology - [address] [id number] Madhu Park MD PhD [address] [place], [place] [address]on, [address] [place] [address] 12/10/2024 11:30 EDT Office Visit [facility] Surgical Oncology - [facility] [address], [place] [phone] [facility] PA-C [address] [facility], [address] [place] [address] Health Maintenance Due Date Last Done Comments RSV Immunization ( o r 60+ Years) (1 - 1-dose 60+ series) 2020 COVID-19 Vaccine ( - 2022-24 season) 2024 Hepatitis C Screen Completed 02/14/2024 Procedures Procedure Name Priority Date/Time Associated Diagnosis Comments US LIVER WITH ELASTOGRAPHY AND ABDOMEN LIMITED Routine 03/21/2024 9:04 EDT Hereditary hemochromatosis (HCC-CMS) SURGICAL PATHOLOGY Today 03/14/2024 12 :28 EDT [...] from Last 3 Months Results * US LIVER WITH ELASTOGRAPHY AND ABDOMEN LIMITED (03/21/2024 9:04 EDT) Anatomical Region Laterality Modality Abdomen, Body Ultrasound 03/21/2024 12:3 1 EDT Impressions 03/21/2024 12:31 EDT Median hepatic stiffness: 3.5 kPa Coarse hepatic echotexture which can be seen in setting of fibrosis and/or hemachromatosis. Liver Stiffness Value and Recommendations: Less than or equal to 5 kPA (1.3 m/s); high probability of being normal I have personally reviewed the images and the above interpretation and agree with the findings. [id number] Narrative 03/21/2024 12:31 EDT US LIVER WITH ELASTOGRAPHY AND ABDOMEN LIMITED ??03/21/2024 8:23 AM COMPARISON: Ultrasound abdomen 02/28/2024 GRAYSCALE: INDICATION: Abnormal liver U/S, hereditary hemochromatosis TECHNIQUE: Grayscale and Doppler ultrasound evaluation of the liver, biliary tree, spleen, and four quadrants of the abdomen was performed. FINDINGS: LIVER: The liver measures 14.1 cm in length, which is normal. Heterogeneous hepatic echotexture. MAIN PORTAL VEIN: Direction of flow is normal. PARAUMBILICAL VEIN: Recanalized paraumbilical vein is not identified. GALLBLADDER: The gallbladder wall measures 2.2 mm in thickness, which is normal. No cholelithiasis. BILE DUCTS: The common duct measures 6.7 mm in diameter at the jayson hepatis, which is the upper limit of normal. No significant intrahepatic biliary duct dilatation. SPLEEN: The spleen measures 9.1 cm, which is normal. FREE FLUID: No free fluid is identified.. ELASTOGRAPHY: INDICATION: Concern for hepatic fibrosis. TECHNIQUE: At least 5 liver stiffness measurements were obtained using LOGIQ E9 2D SWE Shear Wave Elastography using a C1-6 abdominal probe following the SRU guidelines. ?? FINDINGS: Number of Acquisitions: 10 (Per SRU guidelines 5 or more acquisitions is recommended) Median: 3.5 kPa, (1.1 m/sec) E IQR/Median: 9.9% (kPa </= 30%) V IQR/Median: 4.9% (m/s </= 15%) Resulting Agency Comment [id number] Procedure Note Brannon Wood MD - 03/21/2024 US LIVER WITH ELASTOGRAPHY AND ABDOMEN LIMITED 03/21/2024 8:23 AM COMPARISON: Ultrasound abdomen 02/28/2024 GRAYSCALE: INDICATION: Abnormal liver U/S, hereditary hemochromatosis TECHNIQUE: Grayscale and Doppler ultrasound evaluation of the liver,biliary tree, spleen, and four quadrants of the abdomen was performed. FINDINGS: LIVER: The liver measures 14.1 cm in length, which is normal.Heterogeneous hepatic echotexture. MAIN PORTAL VEIN: Direction of flow is normal. PARAUMBILICAL VEIN: Recanalized paraumbilical vein is not identified. GALLBLADDER: The gallbladder wall measures 2.2 mm in thickness, which isnormal. No cholelithiasis. BILE DUCTS: The common duct measures 6.7 mm in diameter at the portahepatis, which is the upper limit of normal. No significant intrahepaticbiliary duct dilatation. SPLEEN: The spleen measures 9.1 cm, which is normal. FREE FLUID: No free fluid is identified.. ELASTOGRAPHY: INDICATION: Concern for hepatic fibrosis. TECHNIQUE: At least 5 liver stiffness measurements were obtained usingLOGIQ E9 2D SWE Shear Wave Elastography using a C1-6 abdominal probefollowing the SRU guidelines. FINDINGS: Number of Acquisitions: 10 (Per SRU guidelines 5 or more acquisitions isrecommended) Median: 3.5 kPa, (1.1 m/sec) E IQR/Median: 9.9% (kPa </= 30%) V IQR/Median: 4.9% (m/s </= 15%) IMPRESSION Median hepatic stiffness: 3.5 kPa Coarse hepatic echotexture which can be seen in setting of fibrosis and/orhemachromatosis. Liver Stiffness Value and Recommendations: Less than or equal to 5 kPA(1.3 m/s); high probability of being normal I have personally reviewed the images and the above interpretation andagree with the findings. [id number] Rocio Hendrix MD [facility] ORDERABLES * SURGICAL PATHOLOGY (03/14/2024 12:28 EDT) Note to Patient The following pathology results have been interpreted by your pathologist and may be available to you before your health provider has had the opportunity to review them. Please allow time for your provider to receive these results and explore management options, if applicable. 03/16/2024 13:24 EDT [facility] Final Diagnosis A. SKIN OF FOREHEAD, LEFT LATERAL, SHAVE BIOPSY: - Basal cell carcinoma, superficial multicentric type. - Lesion extends to peripheral edge of biopsy specimen. 03/16/2024 13:24 [facility] Attestation By the signature below, the attending physician certifies that they have 1) personally conducted a gross and/or microscopic examination of the described specimen(s), and/or personally interpreted the results of laboratory testing of the described specimen(s), and 2) personally rendered or confirmed the above diagnosis. 03/16/2024 13:24 [facility] at 1324 Clinical History Basal cell carcinoma vs inflammatory papule; clinical diagnosis code: D48.5 03/16/2024 13:24 [facility] Gross Description A. Received in formalin labelled with proper patient identification (initials T, D) and left lateral forehead is a shave biopsy of irregular pearly brown skin (0.6 x 0.4 x 0.1 cm). The margin is inked blue, the specimen is bisected and entirely submitted in A1. Mar Ferguson 03/15/2024 11:38 03/16/2024 13:24 T [facility] Performing Lab [facility] 03/16/2024 13:24 T [facility] Scanned Images 03/16/2024 13:24 T [facility] Tissue SPECIMEN FROM SKIN / Unknown 03/14/2024 12:28 EDT 03/15/2024 8:06 EDT Lisa Prajapati PATHOLOGY ORDERABLES [facility] [address] [place] [address] * US OUTSIDE IMAGES BODY (02/28/2024 15:40 EDT) Narrative 03/02/2024 15:41 EDT This is a non-reportable exam. External Imaging IMG OTHER IMAGING OR DERABLES * ORDERS - SCANNED (02/15/2024 17:41 EDT) 02/15/2024 17:4 1 EDT Scan 2 Manager Fire ADMISSION ORDERABLE S * HOLD SST (02/14/2024 14:10 EDT) Hold Hold 02/15/2024 18:15 EDT [facility] Blood VENOUS BLOOD / Unknown 02/14/2024 14:10 EDT 02/15/2024 17:12 EDT Provider Outr Resulting Lab LAB INFO SER VICE AND SUPPORT & PHONE RESULT Performing Organization Address [facility]/ZIP Co de Phone Number [facility] [address] [place] [phone] * HEPATITIS C AB W REFLEX TO HCV RNA BY PCR (02/14/2024 14:10 EDT) Hep C Antibody Negative Negative 02/16/2024 8:55 EDT [facility] Blood VENOUS BLOOD / Unknown 02/14/2024 14:10 EDT 02/15/2024 17:11 EDT Provider Outr Resulting Lab CHEMISTRY & BLOOD GAS ORDERABLES [facility] [address] [place] [id number] * HEPATITIS B SURFACE ANTIGEN (02/14/2024 14:10 EDT) Hep B Surface Ag Negative Negative 02/16/2024 9:05 EDT [facility] Blood VENOUS BLOOD / Unknown 02/14/2024 14:10 EDT 02/15/2024 17:11 EDT Provider Outr Resulting Lab CHEMISTRY & BLOOD GAS ORDERABLES [facility] [address] [place] [address] * ANTI NUCLEAR AB (REMY), IFA (02/14/2024 14:10 EDT) REMY Interpretation Negative Negative 2023 14:25 EDT [facility] Comment:No titer performed, REMY Screen is negative. Blood VENOUS BLOOD / Unknown 02/14/2024 14:10 EDT 02/15/2024 17:13 EDT Narrative [facility] - 02/16/2024 14:25 EDT Results were obtained with the [employer] Apterae HEp-2 REMY Kit by indirect immunofluorescence. Provider Outr Resulting Lab IMMUNOLOGY A ND SEROLOGY ORDERABLES [facility] [address] [place] [address] from Last 3 Months Care Teams Acid Washer Operator Relationship Specialty Start Date End Date Rocio Hendrix MD [address] [place] [address] PCP - General Family Medicine - Primary Care 03/21/24
--- OUTSIDE RECORDS SUMMARY | 2024-03-27 20:08 | XMS_ITS | Continuity of Care Document ---
Author Organization [facility], [facility] / [facility] Address [address] [place] [address] Assessment Encounter Date Assessment Date Assessment LastModified by Organization Details LastModified Time 02/20/2024 02/20/2024 This appointment was conducted via telephone. A total of 20 minutes was spent at this visit of which at least 50% was spent in direct patient contact. Consent was given to conduct this encounter using appropriate technology. [email or web address] Not available 02/20/2024 11:55:57 Plan of Treatment Reminders Order Date Submit Date Provider Last Modified By Organization Details Last Modified Time Details Appointments Nurse Visit 20 2023 02:00P M Not available Not available Not available Nurse Visit 20 2023 02:00P M Not available Not available Not available Follow Up 20 2023 02:00P M Not available Not available Not available Annual Wellness Exam 40 2024 10:00A M Not available Not available Not available Lab HFE gene p.C282Y, qual, blood or tissue [address] (Lab), [address] [place] [address], [address], 03/22/2024 07:49:10 HFE gene mutation analysis, blood or tissue - H63D genetic screen for hemochrom atosis [address] (Lab), [address] [place] [address], [address], 03/22/2024 07:49:11 Referral None recorded. Procedures None recorded. Surgeries None recorded. Imaging US, liver [email or web address] - Radiology, [address] [place], [address], 03/19/2024 07:16:01 Medication Orders None recorded. Patient TargetsNo targets recorded. Patient InstructionsNo instructions recorded. 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 scan abnormal MRI liver was ordered- pending Referring Physician: Rocio Alejandre, Family Medicine, Encounter Date: 03/01/2024 Results Created Date Observation Date Name Description Value Unit Range Abnormal Flag Note LastModifiedBy Organization Detail LastModifiedTime 02/28/20 24 02/28/2024 US, liver [facility] RADIOL OGY Shant Karina welch [id number] RADIOL OGY TRANSC RIPTIO N REPORT _ Patien t Name: JACE BARRETT MRN: Sex: : Age: [id number] F [id number] Accoun t: Access ion: Admit: StayTy pe: [id number] O Gauri d: Order ID: Submit mode: Godwin James er: 2023 10:10 [id number] ELTON PATEL mode: Techno logist : Result ed: 2023 09:20 [facility] 2023 11:48 _ Abdomi nal (Thu d Final 2023 11:48 am) ------ ------ - PATIEN T INFO: ------ ------ - ID #: [id number] : (63 yrs)(F ) Name: HAKEEM BARRETT Visit Date: 024 10:44 am ------ ------ - PERFOR MED BY: ------ ------ - Attend ing: Lauro tam MD, Michelle Enrique Perfor med By: Smooth FRAZIER, RVT, RT, Yanelis lyons Referr ed By: ROCIO KAMARA [facility]ati on[facility] ------ ------ ------ -- SERVIC E(S) PROVID ED: ------ ------ ------ -- UABDLI M - Abdomi nal Limite d Survey Single [id number] Organ or Quadra nt - [id number] ------ ------ INDICA TIONS: ------ ------ Reason US Abdome n: ELEVAT ED LIVER ENZYME S Add'l Info: ------ LIVER: ------ Right Lobe Length : 14.8 cm Echoge nicity /Echot exture : Normal Portal Veins: Hepato petal ------ ------ GALLBL ADDER: ------ ------ Cholel ithias is: No stones visual ized Wall Thickn ess: 1.83 Focal Tender ness: Negati ve sonogr aphic Chan 's sign ------ ------ -- BILIAR Y TRACT: ------ ------ -- Intrah epatic Ducts: Normal Extrah epatic Ducts: Normal Common Duct Size: 5.4 mm ------ --- PANCRE : ------ --- Head: Normal Size: Tail: Normal Size: Body: Normal Size: ------ ------ - RIGHT KIDNEY : ------ ------ - Size (cm) L: 14.0 AP: 4.3 TV: 5.9 Cortic al Thickn ess: Normal Cortic al Echoge nicity : Normal Hydron ephros is: No sonogr aphic eviden ce ---- IVC: ---- Normal in calibe r where visual ized. ------ ----- IMPRES JOYA: ------ ----- Impres joya: The liver is of normal overal l size. There is a subtle diffus e hetero geneit y of echote xture, indete rminat e etiolo gy. No measur able focal pathol ogy demons trated . Follow -up with MRI may be helpfu l in better evalua ting hepati c parenc hyma. Biliar y tree elsewh ere unrema rkable . Electr onical ly signed by: Michelle tam MD, Radiol ogy 11:42 AM Thank you for letthaim g us partic ipate in the care of this patien t. If you are a health care merged [facility] and have any questi ons regard ing this report , please contac t the number above. For patien ts who have questi ons, please contac t the health care profes sional that reques mode your imagin g first. Michelle tam Electr onical ly Signed Final Report 024 11:[address] (Lab) [address] [place] [address], [address], 03/19/2024 07:16:00 03/21/20 24 03/21/2024 US, elast ogram No observ ation record ed. [facility] [address], [place], [address], 03/21/2024 13:55:26 Result Notes None recorded. 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 MD [address], [place], [address], [facility] 10:03:22 Anemia 011170626 Completed 202302/09/[address], [place], [address], [facility] 10:03:32 Dermoid cyst 384693998 Completed 202302/09/2024 Removal Reason: s/p removal - of abdomen MD [address], [place], [address], [facility] 4 10:03:58 Non-smok er 8659433 Active [address], [place], [address], [facility] 10:04:10 Liver enzymes level above referenc e range 441339171 Active [address], [place], [address], [facility] 4 12:22:32 Ultrasou nd scan abnormal 303772627 Active [address], [facility] [address] , [facility] 4 17:18:45 Heredita ry hemochro matosis 18924820 Active [address], [facility] [address] , [facility] 4 12:07:23 Problem Notes None recorded. Procedures Surgical History Date Name Laterality Status Provider Name and Address Organization Details Recorded Time 01/02/20 Total hip arthroplasty completed PER MAYNARD MA [facility] 01/26/2024 14:02:03 Imaging Results None recorded. Procedure Notes None recorded. Medical Equipment None Reported. Allergies No known drug allergies Medications Name Sig Start Date Stop Date Status Note LastModified by Organization Details LastModified Time Zyrtec 10 mg tablet Take 1 tablet every day by oral route. active per Derm. Not Available Not Available Not Available Vitals None Recorded Social History Question Answer Notes LastModified by Organizat ion Details LastModified Time Tobacco Smoking Status Never Smoker FAVIOLA SILVA RN [facility] 03/20/2024 14:13:44 What Was The Date Of Your Most Recent Tobacco Screening? 03/20/2024 [email or web address] Information not available 03/20/2024 Has Tobacco Cessation Counseling Been Provided? No Information not available 03/20/2024 Do You Or Have You Ever Used Any Other Forms Of Tobacco Or Nicotine? No [email or web address] Information not available 03/20/2024 Sex: Female Functional Status None recorded. Mental Status None recorded. Family History Nothing Reported. Medical History No medical history recorded. Gynecological HistoryNo gynecological history recorded. Obstetrics History GPAL:G 0 P 0 0 0 0 Immunizations Vaccine Type Date Status Provider Name and Address Organization Details Recorded Time SARS-COV-2 (COVID-19) vaccine, UNSPECIFIED 03/28/2023 completed FILOMENA GRAY [facility] 01/26/2024 15:35:25 SARS-COV-2 (COVID-19) vaccine, UNSPECIFIED 10/05/2020 completed FILOMENA GRAY, [facility] 01/26/2024 15:35:30 SARS-COV-2 (COVID-19) vaccine, UNSPECIFIED 10/27/2020 completed FILOMENA GRAY, [facility] 01/26/2024 15:35:34 SARS-COV-2 (COVID-19) vaccine, UNSPECIFIED 05/26/2021 completed FILOMENA GRAY, [facility] 01/26/2024 15:35:38 SARS-COV-2 (COVID-19) vaccine, UNSPECIFIED 10/20/2021 completed FILOMENA GRAY, [facility] 01/26/2024 15:35:43 SARS-COV-2 (COVID-19) vaccine, UNSPECIFIED 04/05/2022 completed FILOMENA GRAY, [facility] 01/26/2024 15:35:48 influenza, unspecified formulation 05/08/2020 completed FILOMENA GRAY, [facility] 01/26/2024 15:36:13 influenza, unspecified formulation 04/18/2022 completed FILOMENA GRAY, [facility] 01/26/2024 15:36:16 Tdap 04/21/2011 completed FILOMENA GRAY, [facility]. 01/26/2024 15:36:33 Tdap 05/27/2015 completed FILOMENA GRAY, [facility] 01/26/2024 15:36:37 zoster, unspecified formulation 03/04/2021 completed FILOMENA GRAY, [facility] 01/26/2024 15:37:03 zoster, unspecified formulation 05/18/2021 completed FIOLMENA GRAY, [facility] 01/26/2024 15:37:08 Past Encounters Encounter ID Performer Location Encounter Start Date Encounter Closed Date Diagnosis/Indication Diagnosis SNOMED-CT Code Diagnosis ICD10 Code [id number] ROCIO ALEJANDRE MD [address] [address] 01/26/2024 13:52:56 01/26/2024 15:17:01 Hyponatremia 02085539 E87.1 Vitamin D deficiency 347 14659 E55.9 Screening colonoscopy 44 6494808 Z12.11 [id number] BERTO HU LPN [address] [address] 02/06/2024 07:53:14 02/06/2024 08:00:15 Hyponatremia 97178047 E87.1 E87.8 [id number] Mariela Arvizu RN [address] [address] 02/14/2024 13:51:32 02/14/2024 14:12:56 Liver enzymes level above reference range 280808666 R74.01 [id number] ROCIO ALEJANDRE MD [address] [address] 02/20/2024 11:05:48 02/20/2024 11:57:14 Liver enzymes level above reference range 393398616 R74.01 Health Concerns Section Related Observation LastModified by Organization Detai ls LastModified Time None Recorded Concern Status LastModified by Organization Details LastModified Time None Recorded Payers Encounter Date Sequence Insurance Name Policy Number Policy Hendrickson Covered Member ID Hendrickson Member ID Guarantor Name 02/20/2024 1 [place]: [facility] [id number] Sandhya Barrett [id number] Sandhya Barrett Notes Date Note Type Note Provider Name and Address Organization Details Recorded Time 02/20/2024 text/html HPI Notes: Anne i s here for follow up of lab results. She had further work up after elevated liver enzymes, AST 50 and ALT 60. Iron panel showed normal ferritin of 144, elevated TSAT 73%, and TIBC low at 232. Autoimmune hepatitis tests (REMY, smooth muscle Ab) and hep B/C were negative. Anne has no symptoms of fatigue, night sweats, weight loss. She says its strange because she has a history of low iron in the past. We reviewed possible dx of hemachromatosis and she agrees to test for this. She reports drinking 0-1 glass wine/night. ROCIO ALEJANDRE MD [address], [place], [address], [facility]. 02/20/2024 11:56:58 OBGyn Episode No OBEpisode recorded.
--- OUTSIDE RECORDS SUMMARY | 2024-03-27 20:08 | XMS_ITS | Continuity of Care Document ---
Author Organization [facility] Address [address] [place] [address] Assessment No assessment recorded. Plan of Treatment [...] Not available Not available Not available Lab iron + TIBC + ferritin, serum 2023 [facility] [address] [facility] ([facility] ), [address] [place] [address] [place], [address], 02/21/2024 07:09:02 REMY (antinucl ear antibodie s) screen, serum [address] [facility] (Registration ), [address] [place] [address] [place], [address], 02/21/2024 07:09:10 smooth muscle Ab, serum 2023 024 [facility] [address] [facility] (Registration ), [address] [place] [address] [place], [address], 02/21/2024 07:09:16 hepatitis C virus Ab, serum 2023 024 [facility] [address] [facility] (Registration ), [address] [place] [address] [place], [address], 02/21/2024 07:09:25 HBsAg (hepatiti s B surface Ag), serum 2023 024 juan n21 [facility] (Registration ), [address] [place] [address] [place], [address], 02/21/2024 07:09:33 Referral None recorded. Procedures None recorded. Surgeries None recorded. Imaging None recorded. Medication Orders None recorded. Patient TargetsNo targets recorded. Patient InstructionsNo instructions recorded. 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 scan abnormal MRI liver was ordered- pending Referring Physician: Rocio Alejandre, Family Medicine, Encounter Date: 03/01/2024 Results Created Date Observation Date Name Description Value Unit Range Abnormal Flag Note LastModifiedBy Organization Detail LastModifiedTime 02/28/20 24 02/28/2024 US, liver [facility] RAD[facility]OL OGY Karina Landaverde [address] RADIOL OGY [facility] RIPTIO N REPORT _ Patien t Name: JACE BARRETT CAROL Sanchez MRN: Sex: : Age: [id number] F [id number] Accoun t: Access ion: Admit: StayTy pe: [id number] 024 O Gauri d: Order ID: Submit mode: Godwin James er: 2023 10:10 [id number] ELTON PATEL mode: Techno logist : Result ed: 2023 09:20 [facility] 2023 11:48 _ Abdomi nal (Thu d Final 2023 11:48 am) ------ ------ - PATIEN T INFO: ------ ------ - ID #: [id number] : (63 yrs)(F ) Name: HAKEEM BARRETT [...] - Abdomi nal Limite d Survey Single 74179 Organ or Quadra nt - [id number] ------ ------ INDICA TIONS: ------ ------ [...] ogy 11:42 AM Thank you for letthaim ruiz us partic ipate in the care of this patien t. If you are a health care [facility] and have any questi ons regard ing this report , please contac t the number above. For patien ts who have questi ons, please contac t the health care profes sional that reques mode your imagin g first. Michelle tam Electr onical ly Signed Final Report 024 11:[address] (Lab) [address] [place], [address], 03/19/2024 07:16:00 03/21/20 24 03/21/2024 US, elast ogram No observ ation record ed. [facility] [address], [place], [address], 03/21/2024 13:55:26 Result Notes None recorded. Problems Name Problem SNOMED Code Status Onset Date Resolution Date Notes Provider Name and Address Organization Details Recorded Time Hyponatr emia 80044694 Active [address], [place], [address], [facility] 4 14:38:26 Vitamin D deficien cy 67647880 Active [address], [place], [address], [facility] 4 14:38:44 Basal cell carcinom a of skin 597734075 Completed 202302/09/[address], [place], [address], [facility] 4 10:02:51 Fibrocys tic disease of breast 59485250 Active 2023 diffuse cystic mastopath y, followed by [facility] women[facility] center MD [address], [place], [address], [facility] 10:03:22 Anemia 731039219 Completed 202302/09/[address], [place], [address], [facility] 4 10:03:32 Dermoid cyst 363231838 Completed 202302/09/2024 Removal Reason: s/p removal - of abdomen MD [address]tor[address], [place], [address], [facility] 4 10:03:58 Non-smok er 1558333 Active [address], [place], [address], [facility] 4 10:04:10 Liver enzymes level above referenc e range 798770069 Active [address], [place], [address], [facility] 12:22:32 Ultrasou nd scan abnormal 018048107 Active [address], [facility] [address], [facility] 17:18:45 Heredita ry hemochro matosis 57781030 Active [address], [facility] [address] , [facility] 12:07:23 Problem Notes None recorded. Procedures Surgical History Date Name Laterality Status Provider Name and Address Organization Details Recorded Time 01/02/20 Total hip arthroplasty completed PER MAYNARD MA [facility] 01/26/2024 14:02:03 Imaging Results None recorded. [...] Smoking Status Never Smoker FAVIOLA SILVA RN [facility], [facility] 03/20/2024 14:13:44 What Was The Date Of Your Most Recent Tobacco Screening? 03/20/2024 [email or web address] Information not available 03/20/2024 Has Tobacco Cessation Counseling Been Provided? No [email or web address] Information not available 03/20/2024 Do You Or Have You Ever Used Any Other Forms Of Tobacco Or Nicotine? No [email or web address] Information not available 03/20/2024 Sex: Female Functional Status None recorded. Mental Status None recorded. Family History Nothing Reported. Medical History No medical history recorded. Gynecological HistoryNo gynecological history recorded. Obstetrics History GPAL:G 0 P 0 0 0 0 Immunizations Vaccine Type Date Status Provider Name and Address Organization Details Recorded Time SARS-COV-2 (COVID-19) vaccine, UNSPECIFIED 03/28/2023 completed FILOMENA GRAY, [facility] 01/26/2024 15:35:25 SARS-COV-2 (COVID-19) vaccine, UNSPECIFIED 10/05/2020 completed FILOMENA GRAY, [facility] 01/26/2024 15:35:30 SARS-COV-2 (COVID-19) vaccine, UNSPECIFIED 10/27/2020 completed FILOMENA GRAY, [facility] 01/26/2024 15:35:34 SARS-COV-2 (COVID-19) vaccine, UNSPECIFIED 05/26/2021 completed FILOMENA GRAY, [facility] 01/26/2024 15:35:38 SARS-COV-2 (COVID-19) vaccine, UNSPECIFIED 10/20/2021 completed FILOMENA GRAY, [facility] 01/26/2024 15:35:43 SARS-COV-2 (COVID-19) vaccine, UNSPECIFIED 04/05/2022 completed FILOMENA GRAY, [facility] 01/26/2024 15:35:48 influenza, unspecified formulation 05/08/2020 completed FILOMENA GRAY, [facility] 01/26/2024 15:36:13 influenza, unspecified formulation 04/18/2022 completed FILOMENA GRAY, [facility] 01/26/2024 15:36:16 Tdap 04/21/2011 completed FILOMENA GRAY, [facility] 01/26/2024 15:36:33 Tdap 05/27/2015 completed FILOMENA GRAY, [facility] 01/26/2024 15:36:37 zoster, unspecified formulation 03/04/2021 completed FILOMENA GRAY, [facility] 01/26/2024 15:37:03 zoster, unspecified formulation 05/18/2021 completed PER MAYNARD MA [facility], [place] - [facility]. 01/26/2024 15:37:08 Past Encounters Encounter ID Performer Location Encounter Start Date Encounter Closed Date Diagnosis/Indication Diagnosis SNOMED-CT Code Diagnosis ICD10 Code [id number] ROCIO ALEJANDRE MD [address] [address] 01/26/2024 13:52:56 01/26/2024 15:17:01 Hyponatremia 81253796 E87.1 Vitamin D deficiency 347 02820 E55.9 Screening colonoscopy 44 0976693 Z12.11 [id number] BERTO HU LPN [address] [address] 02/06/2024 07:53:14 02/06/2024 08:00:15 Hyponatremia 12211388 E87.1 E87.8 [id number] Mariela Arvizu RN [address] [address] 02/14/2024 13:51:32 02/14/2024 14:12:56 Liver enzymes level above reference range 311237380 R74.01 Health Concerns Section Related Observation LastModified by Organization Detai ls LastModified Time None Recorded Concern Status LastModified by Organization Details LastModified Time None Recorded Payers Encounter Date Sequence Insurance Name Policy Number Policy Hendrickson Covered Member ID Hendrickson Member ID Guarantor Name 02/14/2024 1 [place] [facility] [id number] Sandhya Barrett [id number] Sandhya Barrett OBGyn Episode No OBEpisode recorded.
--- OUTSIDE RECORDS SUMMARY | 2024-03-27 20:08 | XMS_ITS | Continuity of Care Document ---
Author Organization [place] [facility] Address [address] [place] [address] Assessment No assessment recorded. Plan of Treatment [...] Not available Not available Not available Lab BMP, serum or plasma 2023 024 [email or web address] [facility] (Registration ), [address] [place] [address] [place], [address], 03/22/2024 10:31:55 Referral None recorded. Procedures None recorded. Surgeries None recorded. Imaging None recorded. Medication Orders None recorded. Patient TargetsNo targets recorded. Patient InstructionsNo instructions recorded. 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- pending Referring Physician: Rocio Alejandre, Family Medicine, Encounter Date: 03/01/2024 Results Created Date Observation Date Name Description Value Unit Range Abnormal Flag Note LastModifiedBy Organization Detail LastModifiedTime 02/28/20 24 02/28/2024 US, liver [facility] RAD[facility]GY Karina Landaverde [address] RADIOL OGY [facility]SC RIPTIO N REPORT _ Krisit sampson Name: JACE BARRETT MRN: Sex: : Age: [id number] F [id number] Accoun t: Access ion: Admit: StayTy pe: [id number] 024 O Gauri d: Order ID: Submit mode: Orderi ng Provid er: 2023 10:10 [id number] ELTON PATEL mdoe: Techno logist : Result ed: 2023 09:20 [facility] 2023 11:48 _ Abdomi nal (Thu d Final 2023 11:48 am) ------ ------ - KRISTI Sampson INFO: ------ ------ - ID #: [id number] : (63 yrs)(F ) Name: HAKEEM BARRETT Visit Date: 10:44 am ------ ------ - PERFOR MED BY: ------ ------ - Attend ing: Lauro tam MD, Michelle Enrique Perfor med By: Smooth FRAZIER, RVT, RT, Yanelis lyons Referr ed By: ROCIO KAMARA Locati [facility]: [facility] ------ ------ ------ -- SERVIC E(S) PROVID ED: ------ ------ ------ -- UABDLI M - Abdomi nal Limite d Survey Single 27063 Organ or Quadra nt - [id number] ------ ------ INDICA TIONS: ------ ------ [...] Radiol ogy 11:42 AM Thank you for allyn ruiz us partic ipate in the care of this kristi sampson. If you are a health care [facility] er and have any questi ons regard ing this report , please contac t the number above. For patien ts who have questi ons, please contac t the [facility] care profes rose that reques mode your imagin g first. Michelle Restrepo anel Wesley onical ly Signed Final Report 024 11:[address] (Lab) [address] [place], [address], 03/19/2024 07:16:00 03/21/20 24 03/21/2024 , beverly [place] observ ation record ed. [facility] [address], [place], [address], 03/21/2024 13:55:26 Result Notes None recorded. Problems Name Problem SNOMED Code Status Onset Date Resolution Date Notes Provider Name and Address Organization Details Recorded Time Hyponatr emia 06952646 Active [address], [place], [address], [facility] 4 14:38:26 Vitamin D deficien cy 31624583 Active [address], [place], [address], [facility] 4 14:38:44 Basal cell carcinom a of skin 422937037 Completed 202302/09/[address], [place], [address], [facility] 4 10:02:51 Fibrocys tic disease of breast 14794968 Active 2023 diffuse cystic mastopath y, followed by [facility] [place] women[facility] breast center MD Viktoria [address], [place], [address], [facility] 4 10:03:22 Anemia 321739851 Completed 202302/09/[address], [place], [address], [facility] 4 10:03:32 Dermoid cyst 664649211 Completed 202302/09/2024 Removal Reason: s/p removal - of abdomen MD Viktoria [address], [place], [address], [facility] 4 10:03:58 Non-smok er 6045692 Active [address], [place], [address], [facility] 4 10:04:10 Liver enzymes level above referenc e range 256063990 Active [address], [place], [address], [facility] 12:22:32 Ultrasou nd scan abnormal 467430812 Active [address], [place], [address], [facility] 4 17:18:45 Heredita ry hemochro matosis 79308701 Active [address], [place], [address], [facility] 4 12:07:23 Problem Notes None recorded. Procedures Surgical History Date Name Laterality Status Provider Name and Address Organization Details Recorded Time 01/02/20 Total hip arthroplasty completed PER MAYNARD MA [facility] 01/26/2024 14:02:03 Imaging Results None recorded. Procedure Notes None recorded. Medical Equipment None Reported. Allergies No known drug allergies Medications Name Sig Start Date Stop Date Status Note LastModified by Organization Details LastModified Time Zyrtec 10 mg tablet Take 1 tablet every day by oral route. active per Derm. Not Available Not Available Not Available Vitals Date Recorded Body height Body mass index (BMI) Body weight Body temperature Oxygen saturation Oxygen saturation in Arterial blood by Pulse oximetry Heart rate Systolic blood pressure Diastolic blood pressure Provider Name and Address Organization Details Last Updated DateTime 165.74 cm 21.5 kg/m2 34692.0 1 g 98 [degF] 98 % 98 % 68 /min 122 mm[Hg] 66 mm[Hg] FAVIOLA SILVA RN [facility] 14:23:22 Social History Question Answer Notes LastModified by Organizat ion Details LastModified Time Tobacco Smoking Status Never Smoker FAVIOLA SILVA RN [facility], [facility] 03/20/2024 14:13:44 What Was The Date Of Your Most Recent Tobacco Screening? 03/20/2024 [email or web address] Information not available 03/20/2024 Has Tobacco Cessation Counseling Been Provided? No [email or web address] Information not available 03/20/2024 Do You Or Have You Ever Used Any Other Forms Of Tobacco Or Nicotine? No [email or web address] Information not available 03/20/2024 Sex: Female Functional Status None recorded. Mental Status None recorded. Family History Nothing Reported. Medical History No medical history recorded. Gynecological HistoryNo gynecological history recorded. Obstetrics History GPAL:G 0 P 0 0 0 0 Immunizations Vaccine Type Date Status Provider Name and Address Organization Details Recorded Time SARS-COV-2 (COVID-19) vaccine, UNSPECIFIED 03/28/2023 completed FILOMENA GRAY [facility] 01/26/2024 15:35:25 SARS-COV-2 (COVID-19) vaccine, UNSPECIFIED 10/05/2020 FILOMENA Kwok [facility] 01/26/2024 15:35:30 SARS-COV-2 (COVID-19) vaccine, UNSPECIFIED 10/27/2020 FILOMENA Kwok [facility] 01/26/2024 15:35:34 SARS-COV-2 (COVID-19) vaccine, UNSPECIFIED 05/26/2021 completed FILOMENA GRAY, [facility] 01/26/2024 15:35:38 SARS-COV-2 (COVID-19) vaccine, UNSPECIFIED 10/20/2021 completed FILOMENA GRAY, [facility] 01/26/2024 15:35:43 SARS-COV-2 (COVID-19) vaccine, UNSPECIFIED 04/05/2022 completed FILOMENA GRAY, [facility] 01/26/2024 15:35:48 influenza, unspecified formulation 05/08/2020 completed FILOMENA GRAY, [facility] 01/26/2024 15:36:13 influenza, unspecified formulation 04/18/2022 completed FILOMENA GRAY, [facility] 01/26/2024 15:36:16 Tdap 04/21/2011 completed FILOMENA GRAY, [facility], [facility]. 01/26/2024 15:36:33 Tdap 05/27/2015 completed FILOMENA GRAY, [facility]. 01/26/2024 15:36:37 zoster, unspecified formulation 03/04/2021 completed FILOMENA GRAY, [facility] 01/26/2024 15:37:03 zoster, unspecified formulation 05/18/2021 completed FILOMENA GRAY, [facility]. 01/26/2024 15:37:08 Past Encounters Encounter ID Performer Location Encounter Start Date Encounter Closed Date Diagnosis/Indication Diagnosis SNOMED-CT Code Diagnosis ICD10 Code [id number] ROCIO ALEJANDRE MD [address] [address] 02/20/2024 11:05:48 02/20/2024 11:57:14 Liver enzymes level above reference range 111887308 R74.01 [id number] ROCIO ALEJANDRE MD [address] [address] 03/20/2024 13:59:38 03/20/2024 15:03:16 Hyponatremia 17873737 E87.1 E87.8 Hereditary hemochromatosis 91317467 E83.110 Health Concerns Section Related Observation LastModified by Organization Detai ls LastModified Time None Recorded Concern Status LastModified by Organization Details LastModified Time None Recorded Payers Encounter Date Sequence Insurance Name Policy Number Policy Hendrickson Covered Member ID Hendrickson Member ID Guarantor Name 03/20/2024 1 [facility]: [facility] [id number] Sandhya Barrett [id number] Sandhya Barrett Notes Date Note Type Note Provider Name and Address Organization Details Recorded Time 03/20/2024 text/html HPI Notes: Left side of her forehead basal cell carcinoma, removed by dermatology since last visit. Healing well. She is here to discuss hereditary hemochromatosis. She found out that her son also has this, and he is being referred for treatment. She is scheduled to have both fibroscan tomorrow and to see hepatology in May. She is very worried about her sons, 1 of whom has alcohol use disorder and from home she is estranged, so she is unable to discuss that diagnosis with him. However, she is hoping her younger son will be able to talk to him about it. She is not drinking and says it is hard mostly because of it being a habit. She says that she has been able to abstain without difficulty, but social situations can be awkward. ROCIO ALEJANDRE MD [address], [place], [address], [facility]. 03/20/2024 18:08:39 OBGyn Episode No OBEpisode recorded.
--- OUTSIDE RECORDS SUMMARY | 2024-03-27 20:08 | XMS_ITS | Referral Summary ---
Author Organization [facility] Address [address] [place] [address] Care Team Providers Care Heating Equipment Installer Name Role Phone Rocio Hendrix MD Primary Care Provider [phone] Encounters Date Type Department Care Team Description 03/21/2024 8:16 EDT - 03/21/2024 23:59 EDT Hospital Encounter [facility] [address] [place] [address] Hereditary hemochromatosis (HCC-CMS) Discharge Disposition: Home or Self Care 03/15/2024 Lab Requisition [facility] Pathology & Laboratory Medicine [address] [address] Lisa Prajapati A Neoplasm of uncertain behavior of skin 02/28/2024 - 02/28/2024 23:59 EDT Hospital Encounter [facility] Secondary Reads [place] Discharge Disposition: Home or Self Care 02/15/2024 Lab Requisition [facility] Pathology & Laboratory Medicine [address] [address] Outr Resulting Lab, Provider 02/15/2024 Lab Requisition [facility] Pathology & Laboratory Medicine [address] [address] Outr Resulting Lab, Provider 02/02/2024 Transcribe Orders [facility] Gastroenterology - [address] [address] Rocio Hendrix MD Special screening for malignant [...] cell carcinoma of skin 10/24/2009 Overview: Right jew, s/p Mohs - 11/24/09 Inconclusive mammogram due [...] Contact Info) Description 04/23/2024 9:30 EDT Appointment [facility] Endoscopy - [address] [phone] Marcellus Walsh MD [address] [place] [phone] 05/01/2024 13:30 EDT Appointment [facility] Breast Imaging - [address] [phone] 05/15/2024 15:00 EST Telemedicine [facility] Gastroenterology - [address] [phone] Madhu Park MD PhD [address] [place] [address] [phone] 12/10/2024 11:30 EDT Office Visit [facility] Surgical Oncology - [address] [address] [facility], PA-C [address] [place] [address], [facility] [address] [place] [phone] Procedures Procedure Name Priority Date/Time Associated Diagnosis [...] above interpretation and agree with the findings. [id number] Narrative 03/21/2024 12:31 EDT US LIVER WITH [...] 5 liver stiffness measurements were obtained using [employer] E9 2D SWE Shear Wave Elastography using a C1-6 abdominal probe following the SRU guidelines. ?? FINDINGS: Number of Acquisitions: 10 (Per SRU guidelines 5 or more acquisitions is recommended) Median: 3.5 kPa, (1.1 m/sec) E IQR/Median: 9.9% (kPa </= 30%) V IQR/Median: 4.9% (m/s </= 15%) Resulting Agency Comment [id number] Procedure Note Brannon Wood MD - 03/21/2024 [...] least 5 liver stiffness measurements were obtained [email or web address] E9 2D SWE Shear Wave Elastography using [...] the above interpretation andagree with the findings. [id number] Rocio Hendrix MD IMG US ORDERABLES * SURGICAL PATHOLOGY (03/14/2024 12:28 EDT) Note to Patient The following pathology results have been interpreted by your pathologist and may be available to you before your health provider has had the opportunity to review them. Please allow time for your provider to receive these results and explore management options, if applicable. 03/16/2024 13:24 [facility] Final Diagnosis A. SKIN OF FOREHEAD, LEFT LATERAL, SHAVE BIOPSY: - Basal cell carcinoma, superficial multicentric type. - Lesion extends to peripheral edge of biopsy specimen. 03/16/2024 13:24 [facility] Attestation By the signature below, the attending physician certifies that they have 1) personally conducted a gross and/or microscopic examination of the described specimen(s), and/or personally interpreted the results of laboratory testing of the described specimen(s), and 2) personally rendered or confirmed the above diagnosis. 03/16/2024 13:24 [facility] at 1324 Clinical History Basal cell carcinoma vs inflammatory papule; clinical diagnosis code: D48.5 03/16/2024 13:24 [facility] Gross Description A. Received in formalin labelled with proper patient identification (initials T, D) and left lateral forehead is a shave biopsy of irregular pearly brown skin (0.6 x 0.4 x 0.1 cm). The margin is inked blue, the specimen is bisected and entirely submitted in A1. Mar Ferguson 03/15/2024 11:38 03/16/2024 13:24 EDT [facility] Performing Lab [facility] 03/16/2024 13:24 EDT [facility] Scanned Images 03/16/2024 13:24 EDT [facility] Tissue SPECIMEN FROM SKIN / Unknown 03/14/2024 12:28 EDT 03/15/2024 8:06 EDT Lisa Prajapati PATHOLOGY ORDERABLES Performing Organization Address City/[facility]/ZIP Co de Phone Number [facility] [address] [place] [address] * US OUTSIDE IMAGES BODY (02/28/2024 15:40 EDT) Narrative 03/02/2024 15:41 EDT This is a non-reportable exam. External Imaging IMG OTHER IMAGING OR DERABLES * ORDERS - SCANNED (02/15/2024 17:41 EDT) 02/15/2024 17:4 1 EDT Scan 2 Steward/Stewardess Night ADMISSION ORDERABLE S * HOLD SST (02/14/2024 14:10 EDT) Hold Hold 02/15/2024 18:15 EDT [facility] Blood VENOUS BLOOD / Unknown 02/14/2024 14:10 EDT 02/15/2024 17:12 EDT Provider Outr Resulting Lab LAB INFO SER VICE AND SUPPORT & PHONE RESULT Performing Organization Address City/[facility]/ZIP Co de Phone Number [facility] [address] [place] [address] * HEPATITIS C AB W REFLEX TO HCV RNA BY PCR (02/14/2024 14:10 EDT) Hep C Antibody Negative Negative 02/16/2024 8:55 EDT [facility] Blood VENOUS BLOOD / Unknown 02/14/2024 14:10 EDT 02/15/2024 17:11 EDT Provider Outr Resulting Lab CHEMISTRY & BLOOD GAS ORDERABLES [facility] [address], [place] [id number] * HEPATITIS B SURFACE ANTIGEN (02/14/2024 14:10 EDT) Hep B Surface Ag Negative Negative 02/16/2024 9:05 EDT [facility] Blood VENOUS BLOOD / Unknown 02/14/2024 14:10 EDT 02/15/2024 17:11 EDT Provider Outr Resulting Lab CHEMISTRY & BLOOD GAS ORDERABLES Performing Organization Address City/[facility]/ZIP Co de Phone Number [facility] [address] [place] [address] * ANTI NUCLEAR AB (REMY), IFA (02/14/2024 14:10 EDT) REMY Interpretation Negative Negative 2023 14:25 EDT [facility] Comment:No titer performed, REMY Screen is negative. Blood VENOUS BLOOD / Unknown 02/14/2024 14:10 EDT 02/15/2024 17:13 EDT Narrative [facility] - 02/16/2024 14:25 EDT Results were obtained with the [employer] NOVA Lite HEp-2 REMY Kit by indirect immunofluorescence. Provider Outr Resulting Lab IMMUNOLOGY A ND SEROLOGY ORDERABLES Performing Organization Address City/[facility]/ZIP Co de Phone Number [facility] [address] [place] [address] from Last 3 Months Care Teams Heating Equipment Installer Relationship Specialty Start Date End Date Rocio Hendrix MD [address] [place] [address] PCP - General Family Medicine - Primary Care 03/21/24
--- OUTSIDE RECORDS SUMMARY | 2024-03-27 20:08 | XMS_ITS | Data Portability ---
Author Organization [place] - [facility] Address [address] [place] [address] Assessment Encounter Date Assessment Date Assessment LastModified [...] Not available Not available Not available Lab hepatic function panel, serum 2023 024 [facility] (Registration ), [address] [place] [address] [place], [address], 02/06/2024 15:01:47 CBC 2023 024 [facility] (Registration ), [address] [place] [address] [place], [address], 02/06/2024 14:43:38 iron + TIBC + ferritin, serum 2023 024 juan brown [facility] (Registration ), [address] [place] [address] [place], [address], 02/21/2024 07:09:02 REMY (antinucl ear antibodie s) screen, serum [address] [facility] (Registration ), [address] [place] [address] [place], [address], 02/21/2024 07:09:10 smooth muscle Ab, serum [address] [facility] (Registration ), [address] [place] [address] [place], [address], 02/21/2024 07:09:16 hepatitis C virus Ab, serum [address] [facility] (Registration ), [address] [place] [address] [place], [address], 02/21/2024 07:09:25 HBsAg (hepatiti s B surface Ag), serum [address] [facility] (Registration ), [address] [place] [address] [place], [address], 02/21/2024 07:09:33 HFE gene p.C282Y, qual, blood or tissue [address] (Lab), [address] [place] [address], [address], 03/22/2024 07:49:10 HFE gene mutation analysis, blood or tissue - H63D genetic screen for hemochrom atosis [address] (Lab), [address] [place] [address], [address], 03/22/2024 07:49:11 BMP, serum or plasma 2023 024 [facility] (Registration ), [address] [place] [address] Dr, [place], [address], 03/22/2024 10:31:55 celiac disease comprehen sive panel, serum 2023 024 [email or web address] 1 [facility] (Registration ), [address] [place] [address] [place], [address], 03/27/2024 14:23:48 Referral None recorded. Procedures None recorded. Surgeries None recorded. Imaging US, liver [address] - Radiology, [address] [place] [address], [address], 03/19/2024 07:16:01 Medication Orders None recorded. Patient TargetsNo targets recorded. Patient InstructionsNo instructions recorded. Reason for Referral [employer] Referral for Ul trasound scan abnormal MRI liver was ordered- pending Referring Physician: Rocio Alejandre, Family Medicine, Encounter Date: 03/01/2024 Results Created Date Observation Date Name Description Value Unit Range Abnormal Flag Note LastModifiedBy Organization Detail LastModifiedTime 01/26/20 24 01/26/2024 BASIC METAB OLIC PANEL calcium 8.9 mg/dL 8.5-10 .1 normal Not Available [address] [facility] [place], [address] 01/26/2024 22:57:48 01/26/20 24 01/26/2024 BASIC METAB OLIC PANEL glucose 96 mg/dL 74-106 normal Not Available Graciela franklin [address] [place], [address] 01/26/2024 22:57:48 01/26/20 24 01/26/2024 BASIC METAB OLIC PANEL BUN 15 mg/dL 7-18 normal Not Available Graciela franklin [address] [facility] [place], [address] 01/26/2024 22:57:48 01/26/20 24 01/26/2024 BASIC METAB OLIC PANEL creatinine 0.8 mg/dL 0.55-1 .02 normal Not Available [address] [place], [address] 01/26/2024 22:57:48 01/26/20 24 01/26/2024 BASIC METAB OLIC PANEL estimated GFR 82.74 mL/min /1.73m 2 The eGFR is calcu lated from a serum creat inine using the CKD-E PI 2020 equat ion. Other varia bles requi red for the equat ion are gende r and age; this equat ion does not inclu de a race coeff icien t. This equat ion has simil ar overa ll perfo rmanc e to previ ous equat ions excep t value s may diffe r, in parti cular , in patie nts with highe r value s of eGFR and young er-ag ed adult s. Not Available [address] [place], [address] 01/26/2024 22:57:48 01/26/20 24 01/26/2024 BASIC METAB OLIC PANEL sodium 132 mmol/ L 136-14 5 low Not Available [address] [place], [address] 01/26/2024 22:57:48 01/26/20 24 01/26/2024 BASIC METAB OLIC PANEL potassium 4.0 mmol/ L 3.5-5. 1 normal Not Available [address] [place], [address] 01/26/2024 22:57:48 01/26/20 24 01/26/2024 BASIC METAB OLIC PANEL chloride 101 mmol/ L 98-107 normal Not Available [address] [place], [address] 01/26/2024 22:57:48 01/26/20 24 01/26/2024 BASIC METAB OLIC PANEL CO2 31.9 mmol/ L 21.0-3 2.0 normal Not Available [address] [place], [address] 01/26/2024 22:57:48 01/26/20 24 01/26/2024 BASIC METAB OLIC PANEL anion gap -0.9 mmol/ L 3-11 low Not Available [address] [place], [address] 01/26/2024 22:57:48 01/26/20 24 01/26/2024 VITAM IN D 25 TOTAL vitamin D 25 total 26.6 NG/mL 30-100 low Refer ence Guide lines : Defic ient: <10 ng/ml Insuf ficie nt: 10-30 ng/ml Suffi cient : 30-10 0 ng/ml Toxic : >100 ng/ml Not Available [address] [place], [address] 01/26/2024 22:57:48 02/06/20 24 02/06/2024 COMPL ETE BLOOD COUNT NO DIFF WBC 4.41 10_3/ uL 4.4-10 .8 normal Not Available [address] [place], [address] 02/06/2024 14:43:38 02/06/20 24 02/06/2024 COMPL ETE BLOOD COUNT NO DIFF RBC 4.26 10_6/ uL 3.93-5 .22 normal Not Available [address] [place], [address] 02/06/2024 14:43:38 02/06/20 24 02/06/2024 COMPL ETE BLOOD COUNT NO DIFF HGB 13.6 g/dL 11.2-1 5.7 normal Not Available [address] [place], [address] 02/06/2024 14:43:38 02/06/20 24 02/06/2024 COMPL ETE BLOOD COUNT NO DIFF HCT 40.2 % 36.0-4 6.0 normal Not Available [address] [place], [address] 02/06/2024 14:43:38 02/06/20 24 02/06/2024 COMPL ETE BLOOD COUNT NO DIFF MCV 94 fL 80-95 normal Not Available Graciela franklin [address] [place], [address] 02/06/2024 14:43:38 02/06/20 24 02/06/2024 COMPL ETE BLOOD COUNT NO DIFF MCH 31.9 pg 27.0-3 3.0 normal Not Available [address] [place], [address] 02/06/2024 14:43:38 02/06/20 24 02/06/2024 COMPL ETE BLOOD COUNT NO DIFF MCHC 33.8 % 32.0-3 6.0 normal Not Available [address] [place], [address] 02/06/2024 14:43:38 02/06/20 24 02/06/2024 COMPL ETE BLOOD COUNT NO DIFF RDW 12.3 % 11.7-1 4.6 normal Not Available [address] [place], [address] 02/06/2024 14:43:38 02/06/20 24 02/06/2024 COMPL ETE BLOOD COUNT NO DIFF platelet count 203 10_3/ uL 130-40 0 normal Not Available [address] [place], [address] 02/06/2024 14:43:38 02/06/20 24 02/06/2024 COMPL ETE BLOOD COUNT NO DIFF MPV 13.0 fL 8.0-11 .0 high Not Available [address] [place], [address] 02/06/2024 14:43:38 02/06/20 24 02/06/2024 LIVER PANEL total protein 7.0 g/dL 6.4-8. 2 normal Not Available [address] [place], [address] 02/06/2024 15:01:47 02/06/20 24 02/06/2024 LIVER PANEL albumin 4.0 g/dL 3.4-5. 0 normal Not Available [address] [place], [address] 02/06/2024 15:01:47 02/06/20 24 02/06/2024 LIVER PANEL bilirubin, total 0.60 mg/dL 0.2-1. 0 normal Not Available [address] [place], [address] 02/06/2024 15:01:47 02/06/20 24 02/06/2024 LIVER PANEL alk phos 97 U/L 46-116 normal Not Available [address] [place], [address] 02/06/2024 15:01:47 02/06/20 24 02/06/2024 LIVER PANEL AST 50 U/L 15-37 high Not Available Graciela franklin [address] [place], [address] 02/06/2024 15:01:47 02/06/20 24 02/06/2024 LIVER PANEL ALT 60 U/L 14-59 high Not Available Graciela franklin [address] [place], [address] 02/06/2024 15:01:47 02/06/20 24 02/06/2024 LIVER PANEL bilirubin, conjugated 0.1 mg/dL 0.0-0. 2 normal Not Available [address] [place], [address] 02/06/2024 15:01:47 02/14/20 24 02/14/2024 IRON AND IBCT iron 170 ug/dL 50-170 normal Not Available Graciela franklin [address] [place], [address] 02/14/2024 22:15:58 02/14/20 24 02/14/2024 IRON AND IBCT total iron binding capacity 232 ug/dL 250-45 0 low Not Available [address] [place], [address] 02/14/2024 22:15:58 02/14/20 24 02/14/2024 IRON AND IBCT transferrin sat 73 % 15-50 high Not Available Casi peña [address] [place], [address] 02/14/2024 22:15:58 02/14/20 24 02/14/2024 JAMIE TIN ferritin 144 NG/mL 8-252 normal Not Available Lianne kenny [address] [place], [address] 02/14/2024 22:32:59 02/14/20 24 02/16/2024 HEPAT ITIS C AB W RFLX HCV PCR hepatitis C Ab W rflx HCV PCR Negati ve negati ve Test perfo rmed or refer red by [facility] [address] [place] [address] Not Available [address] [place], [address] 02/16/2024 12:43:25 02/14/20 24 02/16/2024 HEPAT ITIS B SURFA CE AG hepatitis B surface Ag Negati ve negati ve Test perfo rmed or refer red by [facility] r [address], [place] [address] Not Available [address] [place], [address] 02/16/2024 12:43:26 02/14/20 24 02/16/2024 HEPAT ITIS C AB W RFLX HCV PCR hepatitis C Ab W rflx HCV PCR Negati ve negati ve Test perfo rmed or refer red by [facility] r [address], [place] [address] Not Available [address] [place], [address] 02/16/2024 12:43:27 02/14/20 24 02/16/2024 HEPAT ITIS B SURFA CE AG hepatitis B surface Ag Negati ve negati ve Test perfo rmed or refer red by [facility] [address] [place] [address] Not Available [address] [place], [address] 02/16/2024 12:43:28 02/14/20 24 02/16/2024 ANTI NUCLE AR ANTIB SATISH, IFA REMY interpretati on Negati ve negati ve No titer perfo rmed, REMY Scree n is negat carla. Resul ts were obtai douglas with the Werfe n NOVA Lite HEp-2 REMY Kit by indir ect immun ofluo resce nce. Test perfo rmed or refer red by [facility] [address], [place] [address] Not Available [address] [place], [address] 02/16/2024 14:34:49 08/06/02/16/2024 ANTI NUCLE AR ANTIB SATISH, IFA REMY interpretati on Negati ve negati ve No titer perfo rmed, REMY Scree n is negat carla. Resul ts were obtai douglas with the Werfe n NOVA Lite HEp-2 REMY Kit by indir ect immun ofluo resce nce. Test perfo rmed or refer red by [facility] [address], [place] [address] Not Available [address] [place], [address] 02/17/2024 16:41:22 02/14/20 24 02/17/2024 MIRNA H MUSCL E AB SCREE N smooth muscle Ab screen Negati ve negati ve Negat carla: No furth er testi ng will be perfo rmed ----- ----- ----- ----A DDITI ONAL INFOR MATIO N---- ----- ----- ----- This test was devel oped and its perfo rmanc e chicho cteri stics deter mined by [facility] in a margarita r consi stent with NEVA luis ts. This test has not been clear ed or appro rehana by the U.S. Food and Drug Admin istra tion. Test Perfo rmed by: [facility] Labor atori es - [address] [place] [address] Lab Direc tor: Anatoliy Arora nn Ph.D. ; CLIA# [id number] Not Available [address] [place], [address] 02/17/2024 16:41:22 02/28/20 24 03/05/2024 HEMOC HROMA TOSIS MOLEC ULAR TESTI NG* hemochromato sis molecular testing* HEMOC HROMA TOSIS HFE VARIA NT DORIS SIS Hered itary Hemoc hroma tosis HFE Test Repor mode: 03/05 08:59 Statu s=F ----- ----- ----- ----- ----- ----- ----- ----- ----- ----- ----- ----- ----- ----- ----- ----- TEST RESUL T FLAG RANGE UNITS ----- ----- ----- ----- ----- ----- ----- ----- ----- ----- ----- ----- ----- ----- ----- ----- Resul t Summa ry COMPL EX (SEE RESUL T 03/05.1 005.r fl.CO MPLET E.NOVEMBER T .5039 7- AND INTER PRETA TION) Resul t See Comme nts 03/05.1 005.r fl.CO [place] NavigationET E.November .8293 9-0 C282Y : Two copie s of the C282Y varia nt were ident ified . H63D: Not detec mode. Inter preta tion See Comme nts 03/05.1 005.r fl.CO MPLET E.NOVEMBER T .6904 7-9 This indiv idual is homoz ygous for C282Y . This resul t may be consi stent with, but does not confi rm a diagn osis of or predi sposi tion for hered itary hemoc hroma tosis (HH). Sex and serum jamie tin level s are known to impac t the penet crystal of the p.C28 2Y allel e. For indiv idual s found to be homoz ygous for the C282Y varia nt, those assig douglas male at are at consi derab ly highe r risk to exhib it sympt oms of iron overl oad or end-o rgan damag e than those assig douglas femal e at . Addit ional ly, a serum jamie tin level great er than 1000 ug/L is assoc iated with incre ased risk for sympt oms relat ed to iron overl oad. Penet crystal of the genot ype may be affec mode by ethni c backg round and coexi sting comor bid and envir onmen baldo facto rs. These resul ts shoul d be inter prete d in the chavo xt of clini fernando findi ngs, famil y histo ry, and other labor atory testi ng (e.g. serum trans jamie n-iro n satur ation and serum jamie tin). Since the C282Y varia nt has been ident ified , avril ic testi ng and clini fernando evalu ation of at risk famil y membe rs may be consi dered . A avril ic consu ltati on may be of benef it. ----- ----- ----- ----A DDITI ONAL INFOR MATIO N---- ----- ----- ----- An onlin e resea [facility] oppor tunit y juárez d Genom eConn ect (angely mecon nect. org), a proje ct of ClinG en, is avail able for the recip ient of this avril ic test. This patie nt cristal try [facility] cts de-id entif ied avril ic and healt h infor matio n to advan ce the knowl edge of avril ic varia nts. [facility] is a colla borat or of Clin[facility] en. This may not be appli cable for all tests . Test resul ts shoul d be inter prete d in the chavo xt of clini fernando findi ngs, famil y histo ry, and other labor atory data. Misin terpr etati on of resul ts may occur if the infor matio n provi ded is inacc urate or incom plete . Rare polym orphi sms exist that could lead to false -nega tive or false -posi tive resul ts. If resul ts obtai douglas do not match the clini fernando findi ngs, addit ional testi ng shoul d be consi dered . Bone Marro w trans plant s from allog enic donor s will inter fere with testi ng. Call [facility] at[facility] es for instr uctio ns for testi ng patie nts who have recei rehana a bone marro w trans plant . One or more in silic o tools were used to marilu t in the inter preta tion of these resul ts. These tools are updat ed regul leena and predi ction s for a given varia nt may guzmán e. Addit ional ly, the predi ctabi lity of these tools for the deter minat ion of patho genic ity is curre ntly unval idate d. This test was devel oped and its perfo rmanc e chicho cteri stics deter mined by [facility] in a margarita r consi stent with CLIA requi remen ts. This test has not been clear ed or appro rehana by the U.S. Food and Drug Admin istra tion. Speci men WB Whole Blood 03/05.1 005.r fl.CO MPLET E.NOVEMBER T .3120 8-2 Metho d See Comme nts 03/05.1 005.r fl.CO MPLET E.NOVEMBER T .8506 9-3 Dropl et Digit al Polym erase Chain React ion (ddPC R) was used to test for the follo wing three varia nts in the HFE gene; C282Y , H63D, and S65C. Becau se of the minim al effec t on iron metab olism assoc iated with the S65C varia nt, it is only repor mode when it is found with the C282Y varia nt (i.e. if the patie nt has the C282Y /S65C genot ype). Relea sed By See Comme nts 03/05.1 005.r fl.CO MPLET E.NOVEMBER T .1877 1-6 Lucius Kruger MD A porti on of the testi ng proce ss was perfo [facility] at [facility] site [address] 2. Test Perfo rmed by: [facility] [address], [place] [address] Lab Direc tor: Anatoliy Arora nn Ph.D. ; CLIA# [id number] Not Available [facility] (Lab) [address] [place] [address], [address], 03/05/2024 10:13:22 03/20/20 24 03/20/2024 BASIC METAB OLIC PANEL calcium 9.2 mg/dL 8.5-10 .1 normal Not Available [address] [place], [address] 03/20/2024 22:02:17 03/20/20 24 03/20/2024 BASIC METAB OLIC PANEL glucose 107 mg/dL 74-106 high Not Available Graciela franklin [address] [place], [address] 03/20/2024 22:02:17 03/20/20 24 03/20/2024 BASIC METAB OLIC PANEL BUN 11 mg/dL 7-18 normal Not Available Graciela franklin [address] [place], [address] 03/20/2024 22:02:17 03/20/20 24 03/20/2024 BASIC METAB OLIC PANEL creatinine 0.7 mg/dL 0.55-1 .02 normal Not Available [address] [place], [address] 03/20/2024 22:02:17 03/20/20 24 03/20/2024 BASIC METAB OLIC PANEL estimated GFR 97.12 mL/min /1.73m 2 The eGFR is calcu lated from a serum creat inine using the CKD-E PI 2020 equat ion. Other varia bles requi red for the equat ion are gende r and age; this equat ion does not inclu de a race coeff icien t. This equat ion has simil ar overa ll perfo rmanc e to previ ous equat ions excep t value s may diffe r, in parti cular , in patie nts with highe r value s of eGFR and young er-ag ed adult s. Not Available [address] [place], [address] 03/20/2024 22:02:17 03/20/20 24 03/20/2024 BASIC METAB OLIC PANEL sodium 138 mmol/ L 136-14 5 normal Not Available [address] [place], [address] 03/20/2024 22:02:17 03/20/20 24 03/20/2024 BASIC METAB OLIC PANEL potassium 4.5 mmol/ L 3.5-5. 1 normal Not Available [address] [place], [address] 03/20/2024 22:02:17 03/20/20 24 03/20/2024 BASIC METAB OLIC PANEL chloride 102 mmol/ L 98-107 normal Not Available [address] [place], [address] 03/20/2024 22:02:17 03/20/20 24 03/20/2024 BASIC METAB OLIC PANEL CO2 30.1 mmol/ L 21.0-3 2.0 normal Not Available [address] [place], [address] 03/20/2024 22:02:17 03/20/20 24 03/20/2024 BASIC METAB OLIC PANEL anion gap 5.9 mmol/ L 3-11 normal Not Available [address] [place], [address] 03/20/2024 22:02:17 02/28/20 24 02/28/2024 US, liver [facility] [place] [place] [id number] RADIOL OGY TRANSC RIPCHARO N REPORT _ Patien t Name: JACE BARRETT CAROL Sanchez MRN: Sex: : Age: [id number] F [id number] Accoun t: Access ion: Admit: StayTy pe: [id number] O Ordere d: Order ID: Submit mode: Orderi ng Provid er: 2023 10:10 [id number] ELTON PATEL mode: Techno logist : Result ed: 2023 09:20 [facility] 2023 11:48 _ Abdomi nal (Thu d Final 2023 11:48 am) ------ ------ - PATIEN T INFO: ------ ------ - ID #: [id number] : (63 yrs)(F ) Name: HAKEEM BARRETT Visit Date: 10:44 am ------ ------ - PERFOR MED BY: ------ ------ - Attend ing: Lauro tam MD, Michelle Enrique Perfor med By: Smooth RDMS, RVT, RT, Yanelis lyons Referr ed By: ROCIO KAMARA Locati on[facility] ------ ------ ------ -- SERVIC E(S) PROVID ED: ------ ------ ------ -- UABDLI M - Abdomi nal Limite d Survey Single 20990 Organ or Quadra nt - [id number] ------ ------ INDICA TIONS: ------ ------ [...] Radiol ogy 11:42 AM Thank you for lettin g us partic ipate in the care of this patien t. If you are a health care [facility] and have any questi ons regard ing this report , please contac t the number above. For patien ts who have questi ons, please contac t the health care profes sional that reques mode your imagin g first. Michelle tam Electr onical ly Signed Final Report 024 11:[address] (Lab) [address] [place] [address], [address], 03/19/2024 07:16:00 03/21/20 24 03/21/2024 US, elast ogram No observ ation record ed. [facility] [address], [place], [address], 03/21/2024 13:55:26 Result Notes Documentation Provider Name and Address Organization Details Recorded Time Hemochromatosis Molecular Testing* : leave for CT MD Viktoria [address], [place], [address], [facility] 03/06/2024 12:06:14 Problems Name Problem SNOMED Code Status Onset Date Resolution Date Notes Provider Name and Address Organization Details Recorded Time Hyponatr emia 66097375 Active [address], [place], [address], [facility] 14:38:26 Vitamin D deficien cy 60228113 Active [address], [place], [address], [facility] 14:38:44 Basal cell carcinom a of skin 073274049 Completed 202302/09/[address], [place], [address], [facility] 10:02:51 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, followed by [facility] MD [address], [place], [address], [facility] 10:03:22 Anemia 710642204 Completed 202302/09/[address], [place], [address], [facility] 10:03:32 Dermoid cyst 804140122 Completed 202302/09/2024 Removal Reason: s/p removal - of abdomen MD Viktoria [address], [place], [address], [facility] 4 10:03:58 Non-smok er 9482473 Active [address], [place], [address], [facility] 4 10:04:10 Liver enzymes level above referenc e range 045785862 Active [address], [place], [address], [facility] 4 12:22:32 Ultrasou nd scan abnormal 151565980 Active [address], [place], [address], [facility] 17:18:45 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 Procedures Surgical History Date Name Laterality Status Provider Name and Address Organization Details Recorded Time 01/02/20 Total hip arthroplasty completed PER MAYNARD MA [facility] 01/26/2024 14:02:03 Imaging Results Imaging Date Name Status LastModified by Organiz ation Details LastModified Time 02/28/2024 US, liver completed [email or web address] [facility] (Lab) [address] [place], [address], 03/19/2024 07:16:00 03/21/2024 US, elastogram completed ADRIANNE Esparza [facility] [address], [place], [address], 03/21/2024 13:55:26 Procedure Notes None recorded. Medical Equipment None [...] Last Updated DateTime 165.74 cm 21.5 kg/m2 14881.0 1 g 98 [degF] 98 % 98 % 68 /min 122 mm[Hg] 66 mm[Hg] FAVIOLA SILVA RN [facility] 14:23:22 Social History Question Answer Notes LastModified by Organizat ion Details LastModified Time Tobacco Smoking Status Never Smoker FAVIOLA SILVA RN [facility], [facility] 03/20/2024 14:13:44 What Was The Date Of Your Most Recent Tobacco Screening? 03/20/2024 [email or web address] Information not available 03/20/2024 Has Tobacco Cessation Counseling Been Provided? No Information not available 03/20/2024 Do You Or Have You Ever Used Any Other Forms Of Tobacco Or Nicotine? No [email or web address] Information not available 03/20/2024 Sex: Female Functional Status None recorded. Mental Status None recorded. Family History Nothing Reported. Medical History No medical history recorded. Gynecological HistoryNo gynecological history recorded. Obstetrics History GPAL:G 0 P 0 0 0 0 Immunizations Vaccine Type Date Status Provider Name and Address Organization Details Recorded Time SARS-COV-2 (COVID-19) vaccine, UNSPECIFIED 03/28/2023 completed FILOMENA GRAY [facility] 01/26/2024 15:35:25 SARS-COV-2 (COVID-19) vaccine, UNSPECIFIED 10/05/2020 completed FILOMENA GRAY [facility] 01/26/2024 15:35:30 SARS-COV-2 (COVID-19) vaccine, UNSPECIFIED 10/27/2020 completed [facility] GRAY [facility] 01/26/2024 15:35:34 SARS-COV-2 (COVID-19) vaccine, UNSPECIFIED 05/26/2021 completed FILOMENA GRAY, [facility]. 01/26/2024 15:35:38 SARS-COV-2 (COVID-19) vaccine, UNSPECIFIED 10/20/2021 completed FILOMENA GRAY, [facility] 01/26/2024 15:35:43 SARS-COV-2 (COVID-19) vaccine, UNSPECIFIED 04/05/2022 completed FILOMENA GRAY, [facility] 01/26/2024 15:35:48 influenza, unspecified formulation 05/08/2020 completed FILOMENA GRAY, [facility] 01/26/2024 15:36:13 influenza, unspecified formulation 04/18/2022 completed FILOMENA GRAY, [facility] 01/26/2024 15:36:16 Tdap 04/21/2011 completed FILOMENA GRAY, [facility]. 01/26/2024 15:36:33 Tdap 05/27/2015 completed FILOMENA GRAY, [facility]. 01/26/2024 15:36:37 zoster, unspecified formulation 03/04/2021 completed FILOMENA GRAY, [facility], [facility]. 01/26/2024 15:37:03 zoster, unspecified formulation 05/18/2021 completed FILOMENA GRAY, [facility]. 01/26/2024 15:37:08 Past Encounters Encounter ID Performer Location Encounter Start Date Encounter Closed Date Diagnosis/Indication Diagnosis SNOMED-CT Code Diagnosis ICD10 Code [id number] ROCIO ALEJANDRE MD [address] [address] 01/26/2024 13:52:56 01/26/2024 15:17:01 Hyponatremia 28446156 E87.1 Vitamin D deficiency 347 87745 E55.9 Screening colonoscopy 44 4348629 Z12.11 [id number] BERTO HU LPN [address] [address] 02/06/2024 07:53:14 02/06/2024 08:00:15 Hyponatremia 28723884 E87.1 E87.8 [id number] Mariela Arvizu RN [address] [address] 02/14/2024 13:51:32 02/14/2024 14:12:56 Liver enzymes level above reference range 885290142 R74.01 [id number] ROCIO ALEJANDRE MD [address] [address] 02/20/2024 11:05:48 02/20/2024 11:57:14 Liver enzymes level above reference range 863534202 R74.01 [id number] ROCIO ALEJANDRE MD [address] [address] 03/20/2024 13:59:38 03/20/2024 15:03:16 Hyponatremia 48166484 E87.1 E87.8 Hereditary hemochromatosis 66334625 E83.160 [id number] Mariela Arvizu RN [address] [address] 03/27/2024 13:52:00 03/27/2024 14:10:00 Liver enzymes level above reference range 696406699 R74.01 Health Concerns Section Related Observation LastModified by Organization Detai ls LastModified Time None Recorded Concern Status LastModified by Organization Details LastModified Time None Recorded Advance Directives Directive None Recorded Payers Encounter Date Sequence Insurance Name Policy Number Policy Hendrickson Covered Member ID Hendrickson Member ID Guarantor Name 02/06/2024 1 [place] [facility] [id number] Sandhya Barrett [id number] Sandhya Barrett 02/14/2024 1 [place] [facility] [id number] Sandhya Barrett [id number] Sandhya Barrett 02/20/2024 1 [place] [id number] Sandhya Barrett [id number] Sandhya Barrett 03/20/2024 1 [place] [id number] Sandhya Barrett [id number] Sandhya Barrett 03/27/2024 1 [place] [id number] Sandhya Barrett [id number] Sandhya Barrett Notes Date Note Type Note [...] this. She reports drinking 0-1 glass wine/night. MD [address]ia [address], [place], [address], [facility]. 02/20/2024 11:56:58 03/20/2024 text/html HPI Notes: Left side of [...] difficulty, but social situations can be awkward. MD Viktoria [address], [place], [address], [facility]. 03/20/2024 18:08:39 OBGyn Episode No OBEpisode recorded.
--- OUTSIDE RECORDS SUMMARY | 2024-03-27 20:08 | XMS_ITS | Continuity of Care Document ---
Author Organization [facility] Address [address] [place] [address] Assessment No assessment recorded. Plan of Treatment [...] function panel, serum 2023 024 [facility] (Registration ), [address] [place] [address] [place], [address], 02/06/2024 15:01:47 CBC 2023 024 [facility] (Registration ), [address] [place] [address] [place], [address], 02/06/2024 14:43:38 Referral None recorded. Procedures None recorded. Surgeries None recorded. Imaging None recorded. Medication Orders None recorded. Patient TargetsNo targets recorded. Patient InstructionsNo instructions recorded. 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 Ul trasound scan abnormal MRI liver was ordered- pending Referring Physician: Rocio Alejandre, Family Medicine, Encounter Date: 03/01/2024 Results Created Date Observation Date Name Description Value Unit Range Abnormal Flag Note LastModifiedBy Organization Detail LastModifiedTime 08/20/02/28/2024 US, liver [facility] RADIOL OGY Karina Landaverde [address] RADIOL OGY TRANSC RIPTIO N REPORT _ Kristi sampson Name: JACE BARRETT CAROL Sanchez MRN: Sex: : Age: [id number] F [id number] Accoun t: Access ion: Admit: StayTy pe: [id number] 024 O Gauri d: Order ID: Submit mode: Godwin omalley Provid er: 2023 10:10 [id number] RUBY KAMARA HITESH Bacon mode: Techno logist : Result ed: 2023 09:20 BM 2023 11:48 _ Abdomi nal (Thu d Final 2023 11:48 am) ------ ------ - KRISTI Sampson INFO: ------ ------ - ID #: [id number] : (63 yrs)(F ) Name: HAKEEM BARRETT Visit Date: 10:44 am ------ ------ - PERFOR MED BY: ------ ------ - Attend ing: Lauro tam MD, Michelle Enrique Perfor med By: Smooth CRAWLEYMS, RVT, RT, Yanelis lyons Referr ed By: ROCIO KAMARA Locati on: [facility] ------ ------ ------ -- SERVIC E(S) PROVID ED: ------ ------ ------ -- UABDLI M - Abdomi nal Limite d Survey Single 92356 Organ or Quadra nt - [id number] ------ ------ INDICA TIONS: ------ ------ [...] t. If you are a health care [facility] er and have any questi ons regard ing this report , please contac t the number above. For patien ts who have questi ons, please contac t the [facility] that reques mode your imagin g first. Michelle tam Electr onical ly Signed Final Report 024 11:[address] (Lab) [address] [place] [address], [address], 03/19/2024 07:16:00 03/21/20 24 03/21/2024 , beverly perez No observ ation record ed. [facility] 4 [facility], [place], [address], 03/21/2024 13:55:26 Result Notes None recorded. Problems Name Problem SNOMED Code Status Onset Date Resolution Date Notes Provider Name and Address Organization Details Recorded Time Hyponatr emia 31186207 Active [address], [place], [address] , [facility] 14:38:26 Vitamin D deficien cy 61317637 Active [address], [place], [address] , [facility] 14:38:44 Basal cell carcinom a of skin 331614829 Completed 202302/09/[address], [place], [address] [place] [address] 4 10:02:51 Fibrocys tic disease of breast 48839643 Active 2023 diffuse cystic mastopath y, followed by [facility] women[facility] breast center MD [address], [place], [address], [facility] 4 10:03:22 Anemia 614157100 Completed 202302/09/[address], [place], [address], [facility] 4 10:03:32 Dermoid cyst 718897440 Completed 202302/09/2024 Removal Reason: s/p removal - of abdomen MD [address], [place], [address], [facility] 4 10:03:58 Non-smok er 4111141 Active [address], [place], [address], [facility] 4 10:04:10 Liver enzymes level above referenc e range 361593313 Active [address], [place], [address], [facility] 4 12:22:32 Ultrasou nd scan abnormal 504180507 Active [address], [place], [address], [facility] 4 17:18:45 Heredita ry hemochro matosis 30662612 Active [address], [place], [address], [facility] 4 12:07:23 Problem Notes None recorded. Procedures Surgical History Date Name Laterality Status Provider Name and Address Organization Details Recorded Time 01/02/20 Total hip arthroplasty completed PER [facility]NARD [facility] 01/26/2024 14:02:03 Imaging Results None recorded. Procedure [...] LastModified Time Tobacco Smoking Status Never Smoker ANDRY HERMOSILLO, [facility] 03/20/2024 14:13:44 What Was The Date Of Your Most Recent Tobacco Screening? 03/20/2024 [email or web address] Information not available 03/20/2024 Has Tobacco Cessation Counseling Been Provided? No [email or web address] Information not available 03/20/2024 Do You Or Have You Ever Used Any Other Forms Of Tobacco Or Nicotine? No [email or web address] Information not available 03/20/2024 Sex: Female Functional Status None recorded. Mental Status None recorded. Family History Nothing Reported. Medical History No medical history recorded. Gynecological HistoryNo gynecological history recorded. Obstetrics History GPAL:G 0 P 0 0 0 0 Immunizations Vaccine Type Date Status Provider Name and Address Organization Details Recorded Time SARS-COV-2 (COVID-19) vaccine, UNSPECIFIED 03/28/2023 [facility] 01/26/2024 15:35:25 SARS-COV-2 (COVID-19) vaccine, UNSPECIFIED 10/05/2020 completed FILOMENA GRAY, [facility] 01/26/2024 15:35:30 SARS-COV-2 (COVID-19) vaccine, UNSPECIFIED 10/27/2020 FILOMENA Kwok, [facility] 01/26/2024 15:35:34 SARS-COV-2 (COVID-19) vaccine, UNSPECIFIED 05/26/2021 completed FILOMENA GRAY, [facility] 01/26/2024 15:35:38 SARS-COV-2 (COVID-19) vaccine, UNSPECIFIED 10/20/2021 completed [facility]NA GRAY, [facility], [facility]. 01/26/2024 15:35:43 SARS-COV-2 (COVID-19) vaccine, UNSPECIFIED 04/05/2022 completed FILMOENA GRAY, [facility] 01/26/2024 15:35:48 influenza, unspecified formulation 05/08/2020 completed [facility]NA GRAY, [facility]. 01/26/2024 15:36:13 influenza, unspecified formulation 04/18/2022 completed FILOMENA GRAY, [facility] 01/26/2024 15:36:16 Tdap 04/21/2011 completed FILOMENA GRAY, [facility] 01/26/2024 15:36:33 Tdap 05/27/2015 completed FILOMENA GRAY, [facility] 01/26/2024 15:36:37 zoster, unspecified formulation 03/04/2021 completed FILOMENA GRAY, [facility] 01/26/2024 15:37:03 zoster, unspecified formulation 05/18/2021 completed FILOMENA GRAY, [facility]. 01/26/2024 15:37:08 Past Encounters Encounter ID Performer Location Encounter Start Date Encounter Closed Date Diagnosis/Indication Diagnosis SNOMED-CT Code Diagnosis ICD10 Code [id number] ROCIO ALEJANDRE MD [address] [address] 01/26/2024 13:52:56 01/26/2024 15:17:01 Hyponatremia 73408639 E87.1 Vitamin D deficiency 347 82572 E55.9 Screening colonoscopy 44 1241894 Z12.11 [id number] BERTO HU LPN [address] [address] 02/06/2024 07:53:14 02/06/2024 08:00:15 Hyponatremia 88738658 E87.1 E87.8 Health Concerns Section Related Observation LastModified by Organization Detai ls LastModified Time None Recorded Concern Status LastModified by Organization Details LastModified Time None Recorded Payers Encounter Date Sequence Insurance Name Policy Number Policy Hendrickson Covered Member ID Hendrickson Member ID Guarantor Name 02/06/2024 1 [place] [facility] [id number] Sandhya Barrett [id number] Sandhya Barrett OBGyn Episode No OBEpisode recorded.
--- OUTSIDE RECORDS SUMMARY | 2024-03-27 20:08 | XMS_ITS | Continuity of Care Document ---
Author Organization [place] [facility] Address [address] [place] [address] Assessment Encounter Date Assessment Date Assessment LastModified by Organization Details LastModified Time 01/26/2024 01/26/2024 Reviewed sleep hygeine. Advised trial reduced alcohol intake for improved sleep. [email or web address] Not available 01/26/2024 15:55:21 Plan of Treatment Reminders Order Date Submit Date Provider Last Modified By Organization Details Last Modified Time Details Appointments Nurse Visit 20 2023 02:00P M Not available Not available Not available Nurse Visit 20 2023 02:00P M Not available Not available Not available Follo w Up 20 2023 02:00P M Not available Not available Not available Titi Flowers ess Exam 40 2024 10:00A M Not available Not available Not available Lab vitam in D, 25-hy droxy , total , serum 2023 024 ADRIANNE [facility] (Registration), [address] [place] [address] [place], [address], 01/26/2024 22:57:48 BMP, serum or plasm a 2023 024 [email or web address] [facility] (Registration), [address] [place] [address] [place], [address], 02/02/2024 06:45:55 Referral None recor ded. Procedures colon oscop y scree palak (PROC ) [email or web address] [address] [place], [address], 02/01/2024 10:07:20 Surgeries None recor ded. Imaging None recor ded. Medication Orders None recor ded. Patient TargetsNo targets recorded. Patient InstructionsNo instructions recorded. 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 Referral for Ul trasound scan abnormal MRI liver was ordered- pending Referring Physician: Rocio Alejandre, Family Medicine, Encounter Date: 03/01/2024 Results Created Date Observation Date Name Description Value Unit Range Abnormal Flag Note LastModifiedBy Organization Detail LastModifiedTime 02/28/20 24 02/28/2024 US, liver [facility] RADIOL OGY Karina Landaverde [address] RADIOL OGY TRANSC RIPTIO N REPORT _ Patien t Name: JACE BARRETT CAROL Snachez MRN: Sex: : Age: [id number] F [age] Accoun t: Access ion: Admit: StayTy pe: [id number] 024 O Gauri d: Order ID: Submit mode: Godwin omalley Provid er: 2023 10:10 [id number] ELTON PATEL mode: Techno logist : Result ed: 2023 09:20 [facility] 2023 11:48 _ Abdomi nal (Thu d Final 08/20/ 2024 11:48 am) ------ ------ - PATIEN T INFO: ------ ------ - ID #: [id number] : (63 yrs)(F ) Name: HAKEEM BARRETT [...] - Abdomi nal Limite d Survey Single [id number] Organ or Quadra nt - [id number] ------ ------ INDICA TIONS: ------ ------ [...] t. If you are a health care [facility] er and have any questi ons regard ing this report , please contac t the number above. For patien ts who have questi ons, please contac t the health care profes sional that reques mode your imagin g first. Michelle tam Electr onical ly Signed Final Report 024 11:[address] (Lab) [address] [place] [address], [address], 03/19/2024 07:16:00 03/21/20 24 03/21/2024 US, elast ogram No observ ation record ed. [facility] [address], [place], [address], 03/21/2024 13:55:26 Result Notes None recorded. Problems Name Problem SNOMED Code Status Onset Date Resolution Date Notes Provider Name and Address Organization Details Recorded Time Hyponatr emia 97074345 Active 2023 ROCIO ALEJANDRE MD [facility] [address], [place], [address] , [place] [facility] 4 14:38:26 Vitamin D deficien cy 04012225 Active [address], [place], [address], [facility] 4 14:38:44 Basal cell carcinom a of skin 592028607 Completed 202302/09/[address], [place], [address], [facility] 4 10:02:51 Fibrocys tic disease of breast 06231203 Active 2023 diffuse cystic mastopath y, followed by [facility] women[facility] breast center MD [address], [place], [address], [facility] 4 10:03:22 Anemia 900082681 Completed 202302/09/[address], [place], [address], [facility] 4 10:03:32 Dermoid cyst 513118763 Completed 202302/09/2024 Removal Reason: s/p removal - of abdomen MD [address]toria [address], [place], [address], [facility] 4 10:03:58 Non-smok er 7839390 Active [address], [place], [address], [facility] 4 10:04:10 Liver enzymes level above referenc e range 969644893 Active [address], [place], [address], [facility] 4 12:22:32 Ultrasou nd scan abnormal 338965027 Active [address], [place], [address] , [facility] 17:18:45 Heredita ry hemochro matosis 78514882 Active [address], [facility] [address] , [facility] 12:07:23 Problem Notes None recorded. Procedures Surgical History Date Name Laterality Status Provider Name and Address Organization Details Recorded Time 01/02/20 Total hip arthroplasty completed PER MAYNARD MA [facility] 01/26/2024 14:02:03 Imaging Results None recorded. [...] and Address Organization Details Last Updated DateTime 4 165.74 cm 21.3 kg/m2 99319.4 2 g 97.5 [degF] 97 % 97 % 67 /min 114 mm[Hg] 66 mm[Hg] NGHIA MAYNARD MA [facility] 14:10:18 Social History Question Answer Notes LastModified by Organizat ion Details LastModified Time Tobacco Smoking Status Never Smoker FAVIOLA SILVA RN [facility], [facility] 03/20/2024 14:13:44 What Was The Date Of Your Most Recent Tobacco Screening? 03/20/2024 [email or web address] Information not available 03/20/2024 Has Tobacco Cessation Counseling Been Provided? No Information not available 03/20/2024 Do You Or Have You Ever Used Any Other Forms Of Tobacco Or Nicotine? No [email or web address] Information not available 03/20/2024 Sex: Female Functional Status None recorded. Mental Status None recorded. Family History Nothing Reported. Medical History No medical history recorded. Gynecological HistoryNo gynecological history recorded. Obstetrics History GPAL:G 0 P 0 0 0 0 Immunizations Vaccine Type Date Status Provider Name and Address Organization Details Recorded Time SARS-COV-2 (COVID-19) vaccine, UNSPECIFIED 03/28/2023 completed FILOMENA GRAY, [facility] 01/26/2024 15:35:25 SARS-COV-2 (COVID-19) vaccine, UNSPECIFIED 10/05/2020 completed FILOMENA GRAY, [facility] 01/26/2024 15:35:30 SARS-COV-2 (COVID-19) vaccine, UNSPECIFIED 10/27/2020 completed FILOMENA GRAY, [facility] 01/26/2024 15:35:34 SARS-COV-2 (COVID-19) vaccine, UNSPECIFIED 05/26/2021 completed FILOMENA GRAY, [facility] 01/26/2024 15:35:38 SARS-COV-2 (COVID-19) vaccine, UNSPECIFIED 10/20/2021 completed FILOMENA GRAY, [facility] 01/26/2024 15:35:43 SARS-COV-2 (COVID-19) vaccine, UNSPECIFIED 04/05/2022 completed FILOMENA GRAY, [facility] 01/26/2024 15:35:48 influenza, unspecified formulation 05/08/2020 completed FILOMENA GRAY, [facility] 01/26/2024 15:36:13 influenza, unspecified formulation 04/18/2022 FILOMENA Kwok, [facility] 01/26/2024 15:36:16 Tdap 04/21/2011 completed FILOMENA GRAY, [facility] 01/26/2024 15:36:33 Tdap 05/27/2015 completed FILOMENA GRAY, [facility] 01/26/2024 15:36:37 zoster, unspecified formulation 03/04/2021 completed FILOMENA GRAY, [place] [facility], [facility] 01/26/2024 15:37:03 zoster, unspecified formulation 05/18/2021 completed FILOMENA GRYA, [place] - [facility], [facility] 01/26/2024 15:37:08 Past Encounters Encounter ID Performer Location Encounter Start Date Encounter Closed Date Diagnosis/Indication Diagnosis SNOMED-CT Code Diagnosis ICD10 Code [id number] ROCIO ALEJANDRE MD [facility] [address] [place] [address] 01/26/2024 13:52:56 01/26/2024 15:17:01 Hyponatremia 70974466 E87.1 Vitamin D deficiency 347 67652 E55.9 Screening colonoscopy 44 7381900 Z12.11 Health Concerns Section Related Observation LastModified by Organization Detai ls LastModified Time None Recorded Concern Status LastModified by Organization Details LastModified Time None Recorded Payers Encounter Date Sequence Insurance Name Policy Number Policy Hendrickson Covered Member ID Hendrickson Member ID Guarantor Name 01/26/2024 1 [place]: BCBS [facility] [id number] Sandhya Barrett [id number] Sandhya Barrett Notes Date Note Type Note Provider Name and Address Organization Details Recorded Time 01/26/2024 text/html HPI Notes: Anne i s here to establish care at this clinic. 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 Exercise: hiking, biking, cross country skiing Diet: healthy diet, varied, omnivore (small amount of meat), 4 glasses of wine/week Sleep: 6-7 hours of sleep nightly, pees once/night PMH: Osteoarthritis of Right Hip - s/p Hip replacement Post-Menopausal - Followed by [facility] H/O Basal Cell Carcinomas - Sees [facility] wears reading glasses - sees communications representative in [place] Never smoker Diffuse Cystic Mastopathy - followed by [facility] breast clinic HPI: Colonoscopy at 2010 2020 Cologuard Would like Colonoscopy Normal PAPs ROCIO ALEJANDRE MD [address], [place], [address], [facility]. 01/26/2024 15:55:39 OBGyn Episode No OBEpisode recorded.
--- OUTSIDE RECORDS SUMMARY | 2024-03-27 20:08 | XMS_ITS | Continuity of Care Document ---
Author Organization [place] - [facility] Address [address] [place] [address] Assessment No assessment recorded. Plan of Treatment [...] Not available Not available Not available Lab celiac disease comprehen sive panel, serum 2023 024 [email or web address] 1 [facility] (Registration ), [address] [place] [address] Dr, [place], [address], 03/27/2024 14:23:48 Referral None recorded. Procedures None recorded. Surgeries None recorded. Imaging None recorded. Medication Orders None recorded. Patient TargetsNo targets recorded. Patient InstructionsNo instructions recorded. Reason for Referral Case Manager Referral for Ul trasound scan abnormal MRI liver was ordered- pending Referring Physician: Rocio Alejandre, Family Medicine, Encounter Date: 03/01/2024 Results Created Date Observation Date Name Description Value Unit Range Abnormal Flag Note LastModifiedBy Organization Detail LastModifiedTime 02/28/20 24 02/28/2024 US, liver [facility] RADIOL OGY Karina Landaverde [address] RADIOL OGY TRANSC RIPTIO N REPORT _ Kristi sampson Name: JACE BARRETT MRN: Sex: : Age: [id number] F [id number] Accoun t: Access ion: Admit: StayTy pe: [id number] O Nighate d: Order ID: Submit mode: Orderi ng Provid er: 2023 10:10 [id number] ELTON PATEL mode: Techno logist : Result ed: 2023 09:20 [facility] 2023 11:48 _ Abdomi nal (Thu d Final 2023 11:48 am) ------ ------ - KRISTI Sampson INFO: ------ ------ - ID #: [id number] : (63 yrs)(F ) Name: HAKEEM BARRETT [...] - Abdomi nal Limite d Survey Single [id number] Organ or Quadra nt - [id number] ------ ------ INDICA TIONS: ------ ------ [...] If you are a health care [facility] and have any questi ons regard ing this report , please contac t the number above. For patien ts who have questi ons, please contac t the health care profes rose that reques mode your imagin g first. Michlele Restrepo anel Electr onical ly Signed Final Report 024 11:[address] (Lab) [address] [place], [address], 03/19/2024 07:16:00 03/21/20 24 03/21/2024 , beverly Garner observ ation record ed. [facility], [place], [address], 03/21/2024 13:55:26 Result Notes None recorded. Problems Name Problem SNOMED Code Status Onset Date Resolution Date Notes Provider Name and Address Organization Details Recorded Time Hyponatr emia 41653917 Active [address], [place], [address], [facility] 14:38:26 Vitamin D deficien cy 14992577 Active [address], [place], [address], [facility] 4 14:38:44 Basal cell carcinom a of skin 442080811 Completed 202302/09/[address], [place], [address], [facility] 10:02:51 Fibrocys tic disease of breast 12542305 Active 2023 diffuse cystic mastopath y, [facility] MD [address], [place], [address], [facility] 4 10:03:22 Anemia 486380559 Completed 202302/09/[address], [place], [address], [facility] 4 10:03:32 Dermoid cyst 528690427 Completed 202302/09/2024 Removal Reason: s/p removal - of abdomen MD [address]toria [address], [place], [address], [facility] 4 10:03:58 Non-smok er 7333942 Active [address], [place], [address], [facility] 10:04:10 Liver enzymes level above referenc e range 080199455 Active [address], [place], [address], [facility] 12:22:32 Ultrasou nd scan abnormal 365079774 Active [address], [place], [address], [facility] 17:18:45 Heredita ry hemochro matosis 02264810 Active [address], [place], [address], [facility] 12:07:23 Problem Notes None recorded. Procedures Surgical History Date Name Laterality Status Provider Name and Address Organization Details Recorded Time 01/02/20 Total hip arthroplasty completed PER MAYNARD MA [facility] 01/26/2024 14:02:03 Imaging Results None [...] Smoking Status Never Smoker FAVIOLA SILVA RN [facility], [facility] 03/20/2024 14:13:44 What Was The Date Of Your Most Recent Tobacco Screening? 03/20/2024 [email or web address] Information not available 03/20/2024 Has Tobacco Cessation Counseling Been Provided? No [email or web address] Information not available 03/20/2024 Do You Or Have You Ever Used Any Other Forms Of Tobacco Or Nicotine? No [email or web address] Information not available 03/20/2024 Sex: Female Functional Status None recorded. Mental Status None recorded. Family History Nothing Reported. Medical History No medical history recorded. Gynecological HistoryNo gynecological history recorded. Obstetrics History GPAL:G 0 P 0 0 0 0 Immunizations Vaccine Type Date Status Provider Name and Address Organization Details Recorded Time SARS-COV-2 (COVID-19) vaccine, UNSPECIFIED 03/28/2023 [facility] 01/26/2024 15:35:25 SARS-COV-2 (COVID-19) vaccine, UNSPECIFIED 10/05/2020 [facility] 01/26/2024 15:35:30 SARS-COV-2 (COVID-19) vaccine, UNSPECIFIED 10/27/2020 completed FILOMENA GRAY, [facility] 01/26/2024 15:35:34 SARS-COV-2 (COVID-19) vaccine, UNSPECIFIED 05/26/2021 [facility] 01/26/2024 15:35:38 SARS-COV-2 (COVID-19) vaccine, UNSPECIFIED 10/20/2021 [facility] 01/26/2024 15:35:43 SARS-COV-2 (COVID-19) vaccine, UNSPECIFIED 04/05/2022 completed [facility] GRAY, [facility] 01/26/2024 15:35:48 influenza, unspecified formulation 05/08/2020 completed [facility] GRAY, [facility] 01/26/2024 15:36:13 influenza, unspecified formulation 04/18/2022 completed [facility] GRAY, [facility] 01/26/2024 15:36:16 Tdap 04/21/2011 completed [facility] GRAY, [facility] 01/26/2024 15:36:33 Tdap 05/27/2015 completed [facility] GRAY, [facility] 01/26/2024 15:36:37 zoster, unspecified formulation 03/04/2021 completed [facility] GRAY, [facility] 01/26/2024 15:37:03 zoster, unspecified formulation 05/18/2021 completed FIL[facility] GRAY, [facility] 01/26/2024 15:37:08 Past Encounters Encounter ID Performer Location Encounter Start Date Encounter Closed Date Diagnosis/Indication Diagnosis SNOMED-CT Code Diagnosis ICD10 Code [id number] ROCIO ALEJANDRE MD [address] [address] 03/20/2024 13:59:38 03/20/2024 15:03:16 Hyponatremia 84115254 E87.1 E87.8 Hereditary hemochromatosis 65680507 E83.798 [id number] Mariela Arvizu RN [address] [address] 03/27/2024 13:52:00 03/27/2024 14:10:00 Liver enzymes level above reference range 485698025 R74.01 Health Concerns Section Related Observation LastModified by Organization Detai ls LastModified Time None Recorded Concern Status LastModified by Organization Details LastModified Time None Recorded Payers Encounter Date Sequence Insurance Name Policy Number Policy Hendrickson Covered Member ID Hendrickson Member ID Guarantor Name 03/27/2024 1 [place] [facility] [id number] Sandhya Barrett [id number] Sandhya Barrett OBGyn Episode No OBEpisode recorded.
--- OUTSIDE RECORDS SUMMARY | 2024-03-27 20:09 | XMS_ITS | Encounter Summary ---
Author Organization [facility] Address [address] [place] [address] Care Team Providers Care Wastewater Engineer Name Role Phone Indy Champion MD Primary Care Provider Reason for Referral * Radiology Services (Routine) - Closed Specialty Diagnoses / Procedures Referred By Dedra sampson Referred To Contact Diagnoses Encounter for screening mammogram for malignant neoplasm of breast Procedures MA BREAST SCREENING CINDY Indy Farr MD [facility] [employer] [place] [address] Referral ID Status Reason Start Date Expiration Date Visits Re quested Visits Authorized [id number] Closed 01/05/2021 1 1 Reason for Visit * Radiology Services (Routine) - Closed Specialty Diagnoses / Procedures Referred By Dedra sampson Referred To Contact Diagnoses Encounter for screening mammogram for malignant neoplasm of breast Procedures MA BREAST SCREENING CINDY Indy Farr MD [facility] [employer] [place] [id number] Referral ID Status Reason Start Date Expiration Date Visits Re quested Visits Authorized [id number] Closed 01/05/2021 1 1 Encounter Details Date Type Department Care Team (Latest Contact Info) Description 08/14/2021 14:28 EST - 08/14/2021 23:59 EST Hospital Encounter [facility] Breast Imaging Mammography - [facility] [address] [place] [address] Encounter for screening mammogram for malignant neoplasm [...] Contact Info) Description 04/23/2024 9:30 EDT Appointment [facility] Endoscopy - [address] [address] Marcellus Walsh MD 111 [facility], [facility] 5 [place] [phone] 05/01/2024 13:30 EDT Appointment [facility] Breast Imaging - [facility] [address] [place] [address] [place], [place] [address] 05/15/2024 15:00 EST Telemedicine [facility] Gastroenterology - [address] 086361 Madhu Park MD PhD [address] [place] [address] 5 [place] [phone] 12/10/2024 11:30 EDT Office Visit [facility] Surgical Oncology - [address] [phone] [facility] PA-C [address] [place] [address], [facility] 2 [place] [phone] documented as of this encounter Procedures Procedure [...] Procedure Note Maeve Pablo MD - 08/14/2021 [facility] BREAST SCREENING CINDY BILATERAL 08/14/2021 2:30 PM [...] mammogram documented in this encounter Care Teams Wastewater Engineer Relationship Specialty Start Date End Date Indy Champion MD [address] [place] [address] PCP - General 04/15/15 03/20/24 documented as of this encounter
--- OUTSIDE RECORDS SUMMARY | 2024-03-27 20:09 | XMS_ITS | Encounter Summary ---
Author Organization [facility] Address [address] [place] [address] Care Team Providers Care High Court Justice Name Role Phone Indy Champion MD Primary Care Provider Reason for Visit * Reason Comments Follow-up Encounter Details Date Type Department Care Team (Late st Contact Info) Description 06/11/2020 11:30 EST Office Visit [facility] Surgical Oncology - [address] [phone] [facility] PA-C [address] [place] [address], Level [address] [place] [address] Dense breast tissue on mammogram [...] to her health or her family history. 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 Menarche at age 14. ??. ??First delivery at age 36. ?? SOCIAL HISTORY: , lives in [place]. ??One of her children is in college in [place]. ? FAMILY HISTORY: No family history of [...] MOHS SURGERY 11/2009 basal cell carcinoma, right church Family History Problem Relation Age of Onset [...] Patient can see her PCP or her MARINE SERVICE STATION ATTENDANT in 6 months for an additional clinical [...] Contact Info) Description 04/23/2024 9:30 EDT Appointment [facility] Endoscopy - [address] [phone] Marcellus Walsh MD 111 [facility], [facility], Level [address] [place] [phone] 05/01/2024 13:30 EDT Appointment [facility] Breast Imaging - [facility] [address] [place] [address] [place], [place] [address] 05/15/2024 15:00 EST Telemedicine [facility] Gastroenterology - [address] [phone] Madhu Park MD PhD 111 [facility], [facility] 5 [place] [phone] 12/10/2024 11:30 EDT Office Visit [facility] Surgical Oncology - [address] [phone] [facility] PA-C 111 [facility], [facility] 2 [place] [phone] documented as of this encounter Procedures Procedure Name Priority Date/Time Associated Diagnosis Comments ORDERS - SCANNED 04/27/2021 8:16 EDT documented in this encounter Results * ORDERS - SCANNED (04/27/2021 8:16 EDT) 04/27/2021 8:16 EDT Scan 2 It Solutions Architect ADMISSION ORDERABLE S documented in this encounter Visit Diagnoses Diagnosis Dense breast tissue on mammogram- Primary documented in this encounter Care Teams High Court Justice Relationship Specialty Start Date End Date Indy Champion MD [address] [place] [address] PCP - General 04/15/15 03/20/24 documented as of this encounter
--- OUTSIDE RECORDS SUMMARY | 2024-03-27 20:09 | XMS_ITS | Encounter Summary ---
Author Organization [facility] Address [address] [place] [address] Care Team Providers Care Hydraulic Chair Assembler Name Role Phone Indy Champion MD Primary Care Provider Rocio Hendrix MD Primary Care Provider [phone] Encounter Details Date Type Department Care Team (Late st Contact Info) Description 06/28/2023 Lab Requisition [facility] Pathology & Laboratory Medicine - [facility] [address] [place], [place] [address] [phone] Peri Cordero MD [address] [place] [address] [address] [place] [address] Neoplasm of uncertain behavior of skin Social [...] Info) Description 04/23/2024 9:30 EDT Appointment [facility] Endoscopy - [address] 025001 Marcellus Walsh MD [address] [place] [address] 5 [place] [phone] 05/01/2024 13:30 EDT Appointment [facility] Breast Imaging - [address] [phone] 05/15/2024 15:00 EST Telemedicine [facility] Gastroenterology - [address] 787561 Madhu Park MD PhD [address] [place] [address] 5 [place] [phone] 12/10/2024 11:30 EDT Office Visit [facility] Surgical Oncology - [address] [phone] [facility], PAPrabhaC [address] [place] [address], [facility] 2 [place] [phone] documented as of this encounter Procedures Procedure [...] explore management options, if applicable. 06/29/2023 15:58 [facility] Final Diagnosis A. SKIN OF GLABELLA, SHAVE BIOPSY: - Basal cell carcinoma, at least superficial type, transected at the base. 06/29/2023 15:58 [facility] Attestation By the signature below, the attending physician certifies that they have 1) personally conducted a gross and/or microscopic examination of the described specimen(s), and/or personally interpreted the results of laboratory testing of the described specimen(s), and 2) personally rendered or confirmed the above diagnosis. 06/29/2023 15:58 [facility] at 1558 Clinical History Pearly telangiectatic papule; Ddx: R/O BCC; Notes: Mohs GG; clinical diagnosis code: D48.5 06/29/2023 15:58 [facility] Gross Description A. Received in formalin labelled with proper patient identification (initials T, D) and glabella is a dull olivia skin shave, 0.2 cm in greatest dimension. The margin is inked. Entirely submitted intact in A1. URI HOLDEN(ASCP) 06/29/2023 7:14 06/29/2023 15:58 [facility] Performing Lab [facility] 06/29/2023 15:58 [facility] Scanned Images 06/29/2023 15:58 [facility] Tissue SPECIMEN FROM SKIN / Unknown 06/28/2023 13:29 EST 06/28/2023 20:02 EST Peri Cordero MD PATHOLOGY ORDERABLES [facility] [address] [place] [address] documented in this encounter Visit Diagnoses Diagnosis Neoplasm of uncertain behavior of skin documented in this encounter Care Teams Hydraulic Chair Assembler Relationship Specialty Start Date End Date Indy Champion MD [address] [place] [address] PCP - General 04/15/15 03/20/24 Rocio Hendrix MD [address] [place] [address] PCP - General Family Medicine - Primary Care 03/21/24 documented as of this encounter
--- OUTSIDE RECORDS SUMMARY | 2024-03-27 20:09 | XMS_ITS | Encounter Summary ---
Author Organization [facility] Address [address] [place] [address] Care Team Providers Care Deicer Repairer Pneumatic Name Role Phone Indy Champion MD Primary Care Provider Reason for Visit * Reason Onset Date Comments Appointment Related 02/06/2021 Returning Call 02/09/2021 Encounter Details Date Type Department Care Team (Late st Contact Info) Description 02/06/2021 Telephone [facility] Surgical Oncology - [facility] [address] [place] [address] [facility], PA-C [address] [place] [address], [address] [place] [address] Appointment Related; Returning Call Social [...] she give us a back to the [facility]. In my message I requested that we reschedule this patients f/u brck with [facility] from 06/10/2021 @ 11:00am to 8:30am Lety Chacon 02/06/2021 11:19 documented in this encounter Plan of Treatment Upcoming Encounters Date Type Department Care Team (Late st Contact Info) Description 04/23/2024 9:30 EDT Appointment [facility] Endoscopy - [address] 930251 Marcellus Walsh MD [address] [place] [phone] 05/01/2024 13:30 EDT Appointment [facility] Breast Imaging - [address] [phone] 05/15/2024 15:00 EST Telemedicine [facility] Gastroenterology - [address] [phone] Madhu Park MD PhD [address] [place] [phone] 12/10/2024 11:30 EDT Office Visit [facility] Surgical Oncology - [facility] [address] [place], [place] [phone] [facility] PAPrabhaC 111 [facility], Level [address] [place] [phone] documented as of this encounter Visit Diagnoses Not on filedocumented in this encounter Care Teams Deicer Repairer Pneumatic Relationship Specialty Start Date End Date Indy Champion MD [address] [place] [address] PCP - General 04/15/15 03/20/24 documented as of this encounter
--- OUTSIDE RECORDS SUMMARY | 2024-03-27 20:09 | XMS_ITS | Encounter Summary ---
Author Organization [facility] Address [address] [place] [address] Care Team Providers Care Etiquette Teacher Name Role Phone Indy Champion MD Primary Care Provider Reason for Visit * Reason Comments Follow-up Encounter Details Date Type Department Care Team (Late st Contact Info) Description 06/16/2022 9:30 EST Office Visit [facility] Surgical Oncology - [address] 632[address] [facility] PAPrabhaC [address] [place] [address], Level [address] [place] [address] Dense breast tissue on mammogram [...] Follow-up HPI: Division of Surgical Oncology- Breast [facility] PROGRESS NOTE/FOLLOW UP- 06/16/2022 PROBLEM: 1. ??Dense [...] continues to follow-up with [facility]. 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 Menarche at age 14. ??. ??First delivery at age 36. ?? SOCIAL HISTORY: , lives in [place]One??of her sons lives in [place] and the other is in [place]. ? FAMILY HISTORY: No family history of [...] MOHS SURGERY 11/2009 basal cell carcinoma, right buddhist Family History Problem Relation Age of Onset [...] ultrasound was performed using the 6-15 MHz L8 SmartLight [employer] ABUS device. All 4 quadrants and the [...] Patient can see her PCP or her ROCKET ENGINE COMPONENT MECHANIC in 6 months for an additional clinical [...] Care Team (Dank st Contact Info) Description 04/23/2024 9:30 EDT Appointment [facility] Endoscopy - [address] [phone] Marcellus Walsh MD [address] [place] [phone] 05/01/2024 13:30 EDT Appointment [facility] Breast Imaging - [address] 997351 05/15/2024 15:00 EST Telemedicine [facility] Gastroenterology - [address] [phone] Madhu Park MD PhD [address] [place] [phone] 12/10/2024 11:30 EDT Office Visit [facility] Surgical Oncology - [address] [phone] [facility] PA-C [address] [place] [address], [facility] 2 [place] [phone] documented as of this encounter Procedures Procedure Name Priority Date/Time Associated Diagnosis Comments ORDERS - SCANNED 01/14/2023 10:34 EDT documented in this encounter Results * ORDERS - SCANNED (01/14/2023 10:34 EDT) 01/14/2023 10:3 4 EDT Scan 2 Trauma Registrar ADMISSION ORDERABLE S documented in this encounter Visit Diagnoses Diagnosis Dense breast tissue on mammogram- Primary documented in this encounter Care Teams Etiquette Teacher Relationship Specialty Start Date End Date Indy Champion MD [address] [place] [address] PCP - General 04/15/15 03/20/24 documented as of this encounter
--- OUTSIDE RECORDS SUMMARY | 2024-03-27 20:09 | XMS_ITS | Encounter Summary ---
Author Organization [facility] Address [address] [place] [address] Care Team Providers Care Foundry Worker General Name Role Phone Indy Champion MD Primary Care Provider Rocio Hendrix MD Primary Care Provider [phone] Encounter Details Date Type Department Care Team (Late st Contact Info) Description 01/13/2023 Lab Requisition [facility] Pathology & Laboratory Medicine - [address] [address] Collette Hickman MD [address] [place] [address], Level 3 [place] [address] Other specified erythematous conditions; Neoplasm [...] 04/23/2024 9:30 EDT Appointment [facility] Endoscopy - [address] 515381 Marcellus Walsh MD [address] [place] [address] 5 [place] [phone] 05/01/2024 13:30 EDT Appointment [facility] Breast Imaging - [address] [phone] 05/15/2024 15:00 EST Telemedicine [facility] Gastroenterology - [address] [phone] Madhu Park MD PhD [address] [place] [phone] 12/10/2024 11:30 EDT Office Visit [facility] Surgical Oncology - [address] [phone] [facility], PA-C [address] [place] [address], [facility] 2 [place] [address] documented as of this encounter [...] explore management options, if applicable. 01/14/2023 11:04 [facility] Final Diagnosis A. SKIN [...] mm to the biopsy edge. 01/14/2023 11:04 [facility] Attestation By the signature below, the attending physician certifies that they have 1) personally conducted a gross and/or microscopic examination of the described specimen(s), and/or personally interpreted the results of laboratory testing of the described specimen(s), and 2) personally rendered or confirmed the above diagnosis. 01/14/2023 11:04 [facility] at 1104 Clinical History A. 0.3 mm pearly pink and brown papule; DDx: Basal cell carcinoma vs. other; Notes: Please review margins; B. 0.7 cm pink pearly papule; DDx: Basal cell carcinoma vs. other; clinical diagnosis code: D48.5, L53.8 01/14/2023 11:04 [facility] Gross Description A. Received [...] URI HENDRICKS(ASCP) 01/13/2023 15:18 01/14/2023 11:04 EDT [facility] Performing Lab [facility] 01/14/2023 11:04 EDT [facility] Scanned Images 01/14/2023 11:04 EDT [facility] Tissue TISSUE SPECIMEN FROM SKIN / Unknown 01/13/2023 8:25 EDT 01/13/2023 14:53 EDT Tissue specimen (specimen) SPECIMEN FROM SKIN / Unknown 01/13/2023 8:25 EDT 01/13/2023 14:53 EDT Collette Hickman MD PATHOLOGY ORDERABLES [facility] [address] [place] [address] documented in this encounter Visit Diagnoses Diagnosis Other specified erythematous conditions Neoplasm of uncertain behavior of skin documented in this encounter Care Teams Foundry Worker General Relationship Specialty Start Date End Date Indy Champion MD [address] [place] [address] PCP - General 04/15/15 03/20/24 Rocio Hendrix MD [address] [place] [address] PCP - General Family Medicine - Primary Care 03/21/24 documented as of this encounter
--- OUTSIDE RECORDS SUMMARY | 2024-03-27 20:09 | XMS_ITS | Encounter Summary ---
Author Organization [facility] Address [address] [place] [address] Care Team Providers Care Ems Manager Name Role Phone Indy Champion MD Primary Care Provider Reason for Referral * Referral (Routine/Next Available) - Receiving Office to Obtain Authorization Specialty Diagnoses / Procedures Referred By [facility] t Referred To Contact General Surgery Diagnoses Special screening for malignant neoplasms, colon Procedures COLONOSCOPY Rocio Hendrix MD 4 [place] [address] [place] [address] Gen Surgery [address] [place] [address] Referral ID Status Reason Start Date Expiration Date Visits Requested Visits Authorized [id number] Receiving Office to Obtain Authorization 02/02/2024 1 1 Encounter Details Date Type Department Care Team (Latest Contact Info) Description 02/02/[address] [facility] Gastroenterology - [facility] [place] [address] [place], [place] [address] Rocio Hendrix MD [address] [place], [place] [id number] Special screening for malignant neoplasms, colon (Primary [...] Contact Info) Description 04/23/2024 9:[address] [facility] Endoscopy - [address] [address] Marcellus Walsh MD [address] [place] [phone] 05/01/2024 13:[address] [facility] Breast Imaging - [address] [phone] 05/15/2024 15:[address] [facility] Gastroenterology - [address] [phone] Madhu Park MD PhD [address] [place] [address] 5 [place] [phone] 12/10/2024 11:[address] [facility] Surgical Oncology - [address] [phone] [facility] Blood, PA-C [address] [place], [place] [address] 2 [place] [address] Scheduled Orders Name Type Priority Associated Diagnoses Orde r Schedule COLONOSCOPY GI Routine Special screening for malignant neoplasms, colon Expected: 02/02/2024 (Approximate), Expires: 08/04/2025 documented as of this encounter Visit Diagnoses Diagnosis Special screening for malignant neoplasms, colon- Primary documented in this encounter Care Teams Ems Manager Relationship Specialty Start Date End Date Indy Champion MD [address] [place] [address] PCP - General 04/15/15 03/20/24 documented as of this encounter
--- OUTSIDE RECORDS SUMMARY | 2024-03-27 20:09 | XMS_ITS | Encounter Summary ---
Author Organization [facility] Address [address] [place] [address] Care Team Providers Care Acct Exec Name Role Phone Rocio Hendrix MD Primary Care Provider [phone] Reason for Referral * Radiology Services (Routine/Next Available) - Authorization Not Required Specialty Diagnoses / Procedures Referred By Dedra sampson Referred To Contact Diagnoses Hereditary hemochromatosis (HCC-CMS) Procedures US LIVER WITH ELASTOGRAPHY Rocio Hendrix MD [address] [place] [address] [facility] Referral ID Status Reason Start Date Expiration Date Visits Requested Visits Authorized [id number] Authorization Not Required 03/07/2024 1 1 Reason for Visit * Radiology Services (Routine/Next Available) - Authorization Not Required Specialty Diagnoses / Procedures Referred By Dedra sampson Referred To Contact Diagnoses Hereditary hemochromatosis (HCC-CMS) Procedures US LIVER WITH ELASTOGRAPHY Rocio Hendrix MD [address] [place] [address] [facility] Referral ID Status Reason Start Date Expiration Date Visits Requested Visits Authorized [id number] Authorization Not Required 03/07/2024 1 1 Encounter Details Date Type Department Care Team (Latest Contact Info) Description 03/21/2024 8:16 EDT - 03/21/2024 23:59 EDT Hospital Encounter [facility] [address] [place] [address] Hereditary hemochromatosis (HCC-[facility]) Discharge Disposition: Home or Self Care Social [...] Contact Info) Description 04/23/2024 9:30 EDT Appointment [facility] Endoscopy - [address] [address] Marcellus Walsh MD 111 [facility], Level 5 [place] [phone] 05/01/2024 13:30 EDT Appointment [facility] Breast Imaging - [facility] [place] 1 [place], [place] [phone] 05/15/2024 15:00 EST Telemedicine [facility] Gastroenterology - [address] [phone] Madhu Park MD PhD [address] [place] [address], [facility] 5 [place] [phone] 12/10/2024 11:30 EDT Office Visit [facility] Surgical Oncology - [address] [phone] Magnolia Blood PA-C 111 [facility], [facility] 2 [place] [address] documented as of this encounter Procedures Procedure Name Priority Date/Time Associated Diagnosis Comments US LIVER WITH ELASTOGRAPHY AND ABDOMEN LIMITED Routine 03/21/2024 9:04 EDT Hereditary hemochromatosis (HCC-CMS) documented in this encounter Results * US LIVER WITH ELASTOGRAPHY AND [...] above interpretation and agree with the findings. [id number] Narrative 03/21/2024 12:31 EDT US LIVER WITH [...] 5 liver stiffness measurements were obtained using Kofikafe E9 2D SWE Shear Wave Elastography using a C1-6 abdominal probe following the SRU guidelines. ?? FINDINGS: Number of Acquisitions: 10 (Per SRU guidelines 5 or more acquisitions is recommended) Median: 3.5 kPa, (1.1 m/sec) E IQR/Median: 9.9% (kPa </= 30%) V IQR/Median: 4.9% (m/s </= 15%) Resulting Agency Comment [id number] Procedure Note Brannon Wood MD - 03/21/2024 [...] the above interpretation andagree with the findings. [id number] Rocio Hendrix MD IMG US ORDERABLES documented in this encounter Visit Diagnoses Diagnosis Hereditary hemochromatosis (HCC-CMS) Hereditary hemochromatosis documented in this encounter Care Teams Acct Exec Relationship Specialty Start Date End Date Rocio Hendrix MD [address] [place] [address] PCP - General Family Medicine - Primary Care 03/21/24 documented as of this encounter
--- OUTSIDE RECORDS SUMMARY | 2024-03-27 20:09 | XMS_ITS | Encounter Summary ---
Author Organization [facility] Address [address] [place] [address] Care Team Providers Care Planning Management It Specialist Name Role Phone Indy Champion MD Primary [...] Info) Description 04/23/2024 9:30 EDT Appointment [facility] Endoscopy - [address] 137011 Marcellus Walsh MD [address] [place] [address] 5 [place] [phone] 05/01/2024 13:30 EDT Appointment [facility] Breast Imaging - [address] [phone] 05/15/2024 15:00 EST Telemedicine [facility] Gastroenterology - [address] [phone] Madhu Park MD PhD [address] [place] [address] 5 [place] [phone] 12/10/2024 11:30 EDT Office Visit [facility] Surgical Oncology - [address] [phone] Magn[facility] Blood, PA-C [address] [place] [address], [facility] 2 [place] [address] documented as of this encounter Visit Diagnoses Not on filedocumented in this encounter Care Teams Planning Management It Specialist Relationship Specialty Start Date End Date Indy Champion MD 7 [place] [address] PCP - General 04/15/15 03/20/24 documented as of this encounter
--- OUTSIDE RECORDS SUMMARY | 2024-03-27 20:09 | XMS_ITS | Encounter Summary ---
Author Organization [facility] Address [address] [place] [address] Care Team Providers Care Healthcare Liaison Name Role Phone Indy Champion MD Primary Care Provider Reason for Visit * Reason Onset Date Comments Complex Medical Problems 06/11/2021 Encounter Details Date Type Department Care Team (Late st Contact Info) Description 06/11/2021 Orders Only [facility] Surgical Oncology - [address] [address] Magnolia Blood, PA-C [address] [place] [address], Level 2 [place] [address] Dense breast tissue on mammogram [...] Contact Info) Description 04/23/2024 9:30 EDT Appointment [facility] Endoscopy - [address] 594241 Marcellus Walsh MD [address] [place] [address] 5 [place] [phone] 05/01/2024 13:30 EDT Appointment [facility] Breast Imaging - [address] [phone] 05/15/2024 15:00 EST Telemedicine [facility] Gastroenterology - [address] [phone] Madhu Park MD PhD [address] [place] [phone] 12/10/2024 11:30 EDT Office Visit [facility] Surgical Oncology - [address] [phone] Magnolia Blood, PA-C [address] [place] [address], [facility] 2 [place] [phone] documented as of this encounter Visit Diagnoses Diagnosis Dense breast tissue on mammogram- Primary documented in this encounter Care Teams Healthcare Liaison Relationship Specialty Start Date End Date Indy Champion MD [address] [place] [address] PCP - General 04/15/15 03/20/24 documented as of this encounter
--- OUTSIDE RECORDS SUMMARY | 2024-03-27 20:09 | XMS_ITS | Encounter Summary ---
Author Organization [facility] Address [address] [place] [address] Care Team Providers Care Hydrogen Power Plant Engineer Name Role Phone Indy Champion MD [...] Contact Info) Description 04/23/2024 9:30 EDT Appointment [facility] Endoscopy - [address] 099361 Marcellus Walsh MD [address] [place] [address] 5 [place] [phone] 05/01/2024 13:30 EDT Appointment [facility] Breast Imaging - [facility] 1 [place], [place] [phone] 05/15/2024 15:00 EST Telemedicine [facility] Gastroenterology - [address] [phone] Madhu Park MD PhD [address] [place] [address] 5 [place] [phone] 12/10/2024 11:30 EDT Office Visit [facility] Surgical Oncology - [address] [phone] Magnolia Blood, PA-C [address] [place] [address], [facility] 2 [place] [address] documented as of this encounter Visit Diagnoses Not on filedocumented in this encounter Care Teams Hydrogen Power Plant Engineer Relationship Specialty Start Date End Date Indy Champion MD [address] [place] [address] PCP - General 04/15/15 03/20/24 documented as of this encounter
--- OUTSIDE RECORDS SUMMARY | 2024-03-27 20:09 | XMS_ITS | Encounter Summary ---
Author Organization [facility] Address [address] [place] [address] Care Team Providers Care Gleason Operator Name Role Phone Indy Champion MD Primary Care Provider Rocio Hendrix MD Primary Care Provider [phone] Encounter Details Date Type Department Care Team (Late st Contact Info) Description 02/15/2024 Lab Requisition [facility] Pathology & Laboratory Medicine - [address] [address] Outr Resulting Lab, Provider Social History Tobacco [...] Contact Info) Description 04/23/2024 9:30 EDT Appointment [facility] Endoscopy - [address] [phone] Marcellus Walsh MD [address] [place] [address] 5 [place] [phone] 05/01/2024 13:30 EDT Appointment [facility] Breast Imaging - [facility] 1 [place], [place] [phone] 05/15/2024 15:00 EST Telemedicine [facility] Gastroenterology - [address] [phone] Madhu Park MD PhD [address] [place] [phone] 12/10/2024 11:30 EDT Office Visit [facility] Surgical Oncology - [address] [phone] Magnolia Blood PA-C [address] [place] [address], [facility] 2 [place] [phone] documented as of this encounter Procedures Procedure Name Priority Date/Time Associated Diagnosis Comments HOLD SST Today 02/14/2024 14:10 EDT HEPATITIS C AB W REFLEX TO HCV RNA BY PCR Today 02/14/2024 14:10 EDT HEPATITIS B SURFACE ANTIGEN Today 02/14/2024 14:10 EDT documented in this encounter Results * HOLD SST (02/14/2024 14:10 EDT) Hold Hold 02/15/2024 18:15 EDT [facility] Blood VENOUS BLOOD / Unknown 02/14/2024 14:10 EDT 02/15/2024 17:12 EDT Provider Outr Resulting Lab LAB INFO SER VICE AND SUPPORT & PHONE RESULT Performing Organization Address City/[facility]/ZIP Co de Phone Number [facility] [address] [place], [place] [id number] * HEPATITIS B SURFACE ANTIGEN (02/14/2024 14:10 EDT) Hep B Surface Ag Negative Negative 02/16/2024 9:05 EDT [facility] Blood VENOUS BLOOD / Unknown 02/14/2024 14:10 EDT 02/15/2024 17:11 EDT Provider Outr Resulting Lab CHEMISTRY & BLOOD GAS ORDERABLES Performing Organization Address [facility] Co de Phone Number [facility] [address] [place] [address] * HEPATITIS C AB W REFLEX TO HCV RNA BY PCR (02/14/2024 14:10 EDT) Hep C Antibody Negative Negative 02/16/2024 8:55 EDT [facility] Blood VENOUS BLOOD / Unknown 02/14/2024 14:10 EDT 02/15/2024 17:11 EDT Provider Outr Resulting Lab CHEMISTRY & BLOOD GAS ORDERABLES Performing Organization Address [facility]/ZIP Co de Phone Number [facility] [address] [place], [place] [phone] documented in this encounter Visit Diagnoses Not on filedocumented in this encounter Care Teams Gleason Operator Relationship Specialty Start Date End Date Indy Champion MD 7 [place] [address] PCP - General 04/15/15 03/20/24 Rocio Hendrix MD 4 [place] [address] PCP - General Family Medicine - Primary Care 03/21/24 documented as of this encounter
--- OUTSIDE RECORDS SUMMARY | 2024-03-27 20:09 | XMS_ITS | Encounter Summary ---
Author Organization [facility] Address [address] [place] [address] Care Team Providers Care Turn Operator Name Role Phone Indy Champion MD [...] Contact Info) Description 04/23/2024 9:30 EDT Appointment [facility] Endoscopy - [address] [phone] Marcellus Walsh MD [address] [place] [address] 5 [place] [phone] 05/01/2024 13:30 EDT Appointment [facility] Breast Imaging - [facility] 1 [place], [place] [phone] 05/15/2024 15:00 EST Telemedicine [facility] Gastroenterology - [address] [phone] Madhu Park MD PhD [address] [place] [address] 5 [place] [phone] 12/10/2024 11:30 EDT Office Visit [facility] Surgical Oncology - [address] [phone] Magnolia Blood, PA-C [address] [place] [address], [facility] 2 [place] [phone] documented as of this encounter Visit Diagnoses Not on filedocumented in this encounter Care Teams Turn Operator Relationship Specialty Start Date End Date Indy Champion MD [address] [place] [address] PCP - General 04/15/15 03/20/24 documented as of this encounter
--- OUTSIDE RECORDS SUMMARY | 2024-03-27 20:09 | XMS_ITS | Encounter Summary ---
Author Organization [facility] Address [address] [place] [address] Care Team Providers Care Veneer Department Manager Name Role Phone Indy Champion MD Primary Care Provider Reason for Visit * Reason Onset Date Comments Appointment Related 06/10/2020 Encounter Details Date Type Department Care Team (Late st Contact Info) Description 06/10/2020 Telephone [facility] Surgical Oncology - [facility] [address] [place] [address] Magn[facility] Blood PAPrabhaC [address] [place] [address], Level 2 [place] [address] Appointment Related Social History Tobacco [...] encounter Miscellaneous Notes * Telephone Encounter - Oswaldo Lety - 06/10/2020 1532 EST Received a phone call from the pt. In regard to her 06/11/2021. Pt wanting to know if she should postpone this appt. As she has not had her mammo yet or if she should confirm this appt. I let the pt know that she is welcome to still come into clinic for this appt, as Magnolia Guallpa be able to view her US results that she had back in February. PT has confirmed this appt. Lety Chacon 06/10/2020 15:40 documented in this encounter Plan of Treatment Upcoming Encounters Date Type Department Care Team (Late st Contact Info) Description 04/23/2024 9:30 EDT Appointment [facility] Endoscopy - [address] [phone] Marcellus Walsh MD [address] [place] [phone] 05/01/2024 13:30 EDT Appointment [facility] Breast Imaging - [address] [phone] 05/15/2024 15:00 EST Telemedicine [facility] Gastroenterology - [address] 677491 Madhu Park MD PhD [address] [place] [phone] 12/10/2024 11:30 EDT Office Visit [facility] Surgical Oncology - [address] 629[address] Magnolia Blood PAPrabhaC [address] [place] [address] Level 2 [place] [phone] documented as of this encounter Visit Diagnoses Not on filedocumented in this encounter Care Teams Veneer Department Manager Relationship Specialty Start Date End Date Indy Champion MD [address] [place] [address] PCP - General 04/15/15 03/20/24 documented as of this encounter
--- OUTSIDE RECORDS SUMMARY | 2024-03-27 20:09 | XMS_ITS | Encounter Summary ---
Author Organization [facility] Address [address] [place] [address] Care Team Providers Care Optician Name Role Phone Indy Champion MD Primary Care Provider Reason for Referral * Radiology Services (Routine) - Closed Specialty Diagnoses / Procedures [facility] Referred To Contact Diagnoses Dense breast tissue on mammogram Procedures US ABUS BREAST SCREENING BILATERAL US BREAST SCREENING ONLY BILATERAL Magnolia Blood PA-C [address] [place] [phone] Referral ID Status Reason Start Date Expiration Date Visits Re quested Visits Authorized [id number] Closed 08/22/2020 1 1 Reason for Visit * Reason Onset Date Comments Complex Medical Problems 07/02/2020 Encounter Details Date Type Department Care Team (Late st Contact Info) Description 07/02/2020 Orders Only [facility] Surgical Oncology - [address] [phone] Magnolia Blood PA-C [address] [place] [phone] Dense breast tissue on mammogram (Primary [...] Contact Info) Description 04/23/2024 9:30 EDT Appointment [facility] Endoscopy - [address] 369561 Marcellus Walsh MD [address] [place] [phone] 05/01/2024 13:30 EDT Appointment [facility] Breast Imaging - [address] [phone] 05/15/2024 15:00 EST Telemedicine [facility] Gastroenterology - [address] [phone] Madhu Park MD PhD [address] [place] [phone] 12/10/2024 11:30 EDT Office Visit [facility] Surgical Oncology - [address] [address] Magnolia Blood PA-C [address] [place] [address], [facility], Level [address] [place] [phone] documented as of this encounter Results * [...] ultrasound was performed using the 6-15 MHz [employer]ov[employer] InvDVS Intelestream ABUS device. All 4 quadrants and the [...] which require additional imaging. [facility] Blood PA-C IMG US ORDERABL ES documented in this encounter Visit Diagnoses Diagnosis Dense breast tissue on mammogram- Primary Dense breast tissue on mammogram documented in this encounter Care Teams Optician Relationship Specialty Start Date End Date Indy Champion MD [address] [place] [address] PCP - General 04/15/15 03/20/24 documented as of this encounter
--- OUTSIDE RECORDS SUMMARY | 2024-03-27 20:09 | XMS_ITS | Encounter Summary ---
Author Organization [facility] Address [address] [place] [address] Care Team Providers Care Ribbon Cutter Name Role Phone Indy Champion MD Primary [...] Contact Info) Description 04/23/2024 9:30 EDT Appointment [facility] Endoscopy - [address] 100611 Marcellus Walsh MD [address] [place] [address] 5 [place] [phone] 05/01/2024 13:30 EDT Appointment [facility] Breast Imaging - [address] [phone] 05/15/2024 15:00 EST Telemedicine [facility] Gastroenterology - [address] [phone] Madhu Park MD PhD [address] [place] [address] [phone] 12/10/2024 11:30 EDT Office Visit [facility] Surgical Oncology - [address] [phone] [facility], PA-C [address] [place] [address], [facility] 2 [place] [phone] documented as of this encounter Visit Diagnoses Not on filedocumented in this encounter Care Teams Ribbon Cutter Relationship Specialty Start Date End Date Indy Champion MD [address] [place] [address] PCP - General 04/15/15 03/20/24 documented as of this encounter
--- OUTSIDE RECORDS SUMMARY | 2024-03-27 20:09 | XMS_ITS | Encounter Summary ---
Author Organization [facility] Address [address] [place] [address] Care Team Providers Care Fuse Maker Name Role Phone Indy Champion MD Primary Care Provider Rocio Hendrix MD Primary Care Provider [phone] Encounter Details Date Type Department Care Team (Late st Contact Info) Description 11/25/2020 Lab Requisition [facility] Pathology & Laboratory Medicine - [facility] [address] [place] [address] Mar Gannon, [facility] [address] [facility] [address] [place], [place] [phone] Encounter for gynecological examination (general) (routine) without [...] Description 04/23/2024 9:30 EDT Appointment [facility] Endoscopy - [address] [phone] Marcellus Walsh MD [address] [place] [phone] 05/01/2024 13:30 EDT Appointment [facility] Breast Imaging - [address] [phone] 05/15/2024 15:00 EST Telemedicine [facility] Gastroenterology - [address] [phone] Madhu Park MD PhD [address] [place] [address] [phone] 12/10/2024 11:30 EDT Office Visit [facility] Surgical Oncology - [address] [phone] [facility] PAPrabhaC [address] [place] [address], [facility] 2 [place] [phone] documented as of this encounter [...] types, PCR Negative Negative 12/04/2020 14:25 EDT [facility] Comment:No E6 or E7 mRNA is detected from HPV types 16,18,31,33,35,39,45,51,52,56,58,59,66, and 68 by bobbin fixer mediated amplification. Papanicolaou smear specimen (specimen) CERVIX UTERI STRUCTURE / Unknown 11/25/2020 14:13 EDT 12/02/2020 14:43 EDT Mar Gannon [facility] MICROBIOLOGY - GENERAL ORDERABLES [facility] [address] [place] [address] * PAP TEST (11/25/2020 14:13 EDT) Specimens A. Cervix and/or Endocervix , ThinPrep Imaging System with Manual Evaluation 12/04/2020 14:25 EDT [facility] Specimen Adequacy Satisfactory for Evaluation - transformation zone component present 12/04/2020 14:25 EDT [facility] General Categorization Negative for intraepithelial lesion or malignancy 12/04/2020 14:25 T [facility] Attestation . 12/04/2020 14:25 [facility] at 1425 Clinical History Clinical History, Signs, Symptoms, Chief Complaint, Pertaining to This Order: See below 12/04/2020 14:25 EDT [facility] HPV The result for the Human Papillomavirus (HPV) Detection-High Risk Types is Negative. No E6 or E7 mRNA is detected from HPV types 16,18,31,33,35,39 ,45,51,52,56,58,5 9,66, and 68 by bobbin fixer mediated amplification.Marybel ting was performed on specimen [id number] and was resulted on 12/04/2020 1410 EDT by JACKSON, LAB INSTRUMENT RESULTS IN 12/04/2020 14:25 EDT [facility] Performing Lab [facility] 12/04/2020 14:25 EDT [facility] Scanned Images 12/04/2020 14:25 EDT [facility] Papanicolaou smear specimen (specimen) CERVIX UTERI STRUCTURE / Unknown 11/25/2020 14:13 EDT 11/26/2020 9:38 EDT Mar Gannon [facility] PATHOLOGY ORDER DARCY [facility] [address] [place] [address] documented in this encounter Visit Diagnoses Diagnosis Encounter for gynecological examination (general) (routine) without abnormal findings documented in this encounter Care Teams Fuse Maker Relationship Specialty Start Date End Date Indy Champion MD [address] [place] [address] PCP - General 04/15/15 03/20/24 Rocio Hendrix MD [address] [place] [address] PCP - General Family Medicine - Primary Care 03/21/24 documented as of this encounter
--- OUTSIDE RECORDS SUMMARY | 2024-03-27 20:09 | XMS_ITS | Encounter Summary ---
Author Organization [facility] Address [address] [place] [address] Care Team Providers Care Overlock Sleeve Setter Name Role Phone Indy Champion MD Primary Care Provider Reason for Referral * Radiology Services (Routine) - Closed Specialty Diagnoses / Procedures Referred By Dedra sampson Referred To Contact Diagnoses Dense breast tissue on mammogram Procedures US ABUS BREAST SCREENING BILATERAL US BREAST SCREENING ONLY BILATERAL [facility] PA-C [address] [place] [phone] Referral ID Status Reason Start Date Expiration Date Visits Re quested Visits Authorized [id number] Closed 08/22/2020 1 1 Reason for Visit * Radiology Services (Routine) - Closed Specialty Diagnoses / Procedures Referred By Dedra sampson Referred To Contact Diagnoses Dense breast tissue on mammogram Procedures US ABUS BREAST SCREENING BILATERAL US BREAST SCREENING ONLY BILATERAL [facility] PA-C [address] [place] [phone] Referral ID Status Reason Start Date Expiration Date Visits Re quested Visits Authorized [id number] Closed 08/22/2020 1 1 Encounter Details Date Type Department Care Team (Latest Contact Info) Description 03/06/2021 14:46 EDT - 03/06/2021 23:59 EDT Hospital Encounter [facility] Breast Imaging - [facility] [place] [address] [place] [address] Dense breast tissue on mammogram Discharge Disposition: [...] Contact Info) Description 04/23/2024 9:30 EDT Appointment [facility] Endoscopy - [address] [phone] Marcellus Walsh MD [address] [place] [address] 5 [place] [phone] 05/01/2024 13:30 EDT Appointment [facility] Breast Imaging - [facility] [place] [address] [place], [place] [phone] 05/15/2024 15:00 EST Telemedicine [facility] Gastroenterology - [address] [phone] Madhu Park MD PhD [address] [place] [address] [phone] 12/10/2024 11:30 EDT Office Visit [facility] Surgical Oncology - [address] [phone] [facility] Blood PA-C [address] [place] [address], [facility] 2 [place] [phone] documented as of this encounter Procedures Procedure [...] ultrasound was performed using the 6-15 MHz Jam[employer] ABUS device. All 4 quadrants and the [...] mammogram documented in this encounter Care Teams Overlock Sleeve Setter Relationship Specialty Start Date End Date Indy Champion MD [address] [place] [address] PCP - General 04/15/15 03/20/24 documented as of this encounter
--- OUTSIDE RECORDS SUMMARY | 2024-03-27 20:09 | XMS_ITS | Encounter Summary ---
Author Organization [facility] Address [address] [place] [address] Care Team Providers Care Activity Aide Name Role Phone Indy Champion MD Primary Care Provider Reason for Visit * Reason Onset Date Comments Appointment Related 07/31/2021 Encounter Details Date Type Department Care Team (Late st Contact Info) Description 07/31/20[facility] [place] [address] Jessica Osorio Appointment Related Social History Tobacco [...] to schedule screening ultrasound. Call back number [phone] documented in this encounter Plan of Treatment Upcoming Encounters Date Type Department Care Team (Late st Contact Info) Description 04/23/2024 9:30 EDT Appointment [facility] Endoscopy - [address] 680201 Marcellus Walsh MD [address] [place] [phone] 05/01/2024 13:30 EDT Appointment [facility] Breast Imaging - [address] [phone] 05/15/2024 15:00 EST Telemedicine [facility] Gastroenterology - [address] 633381 Madhu Park MD PhD [address] [place] [address] 5 [place] [phone] 12/10/2024 11:30 EDT Office Visit [facility] Surgical Oncology - [address] [phone] Magnolia Blood PA-C [address] [place] [address], [facility] 2 [place] [phone] documented as of this encounter Visit Diagnoses Not on filedocumented in this encounter Care Teams Activity Aide Relationship Specialty Start Date End Date Indy Champion MD [address] [place] [address] PCP - General 04/15/15 03/20/24 documented as of this encounter
--- OUTSIDE RECORDS SUMMARY | 2024-03-27 20:09 | XMS_ITS | Encounter Summary ---
Author Organization [facility] Address [address] [place] [address] Care Team Providers Care Director Of Corporate Communications Name Role Phone Indy Champion MD Primary Care Provider Reason for Visit * Reason Onset Date Comments Requesting Sooner Appointment 06/08/2022 Encounter Details Date Type Department Care Team (Late st Contact Info) Description 06/08/2022 Telephone [facility] Surgical Oncology - [address] [address] [facility], PA-C [address] [place] [address], Level [address] [place] [phone] Requesting Sooner Appointment Social History [...] Ramirez 06/08/2022 11:11 * Telephone Encounter - Ha Costello - 06/08/2022 1054 EST Patient wondering if there is any possibility of moving their appt up to this week. Please call to discuss. documented in this encounter Plan of Treatment Upcoming Encounters Date Type Department Care Team (Late st Contact Info) Description 04/23/2024 9:30 EDT Appointment [facility] Endoscopy - [address] [phone] Marcellus Walsh MD [address] [place] [address] [phone] 05/01/2024 13:30 EDT Appointment [facility] Breast Imaging - [address] [phone] 05/15/2024 15:00 EST Telemedicine [facility] Gastroenterology - [address] 304741 Madhu Park MD PhD [address] [place] [address] [phone] 12/10/2024 11:30 EDT Office Visit [facility] Surgical Oncology - [address] [phone] Magnolia Blood PA-C [address] [place] [address], [address] [place] [phone] documented as of this encounter Visit Diagnoses Not on filedocumented in this encounter Care Teams Director Of Corporate Communications Relationship Specialty Start Date End Date Indy Champion MD [address] [place] [address] PCP - General 04/15/15 03/20/24 documented as of this encounter
--- OUTSIDE RECORDS SUMMARY | 2024-03-27 20:09 | XMS_ITS | Encounter Summary ---
Author Organization [facility] Address [address] [place] [address] Care Team Providers Care Delivery Room Clerk Name Role Phone Indy Champion MD Primary Care Provider Rocio Hendrix MD Primary Care Provider Reason for Visit * Reason Onset Date Comments Complex Medical Problems 06/16/2022 Encounter Details Date Type Department Care Team (Late st Contact Info) Description 06/16/2022 Orders Only [facility] Surgical Oncology - [facility] [address] [place] [address] [facility], PA-C [address] [place] [address], Level [address] [place] [phone] Dense breast tissue on mammogram [...] Contact Info) Description 04/23/2024 9:30 EDT Appointment [facility] Endoscopy - [address] [phone] Marcellus Walsh MD [address] [place] [address] 5 [place] [phone] 05/01/2024 13:30 EDT Appointment [facility] Breast Imaging - [address] [phone] 05/15/2024 15:00 EST Telemedicine [facility] Gastroenterology - [address] [phone] Madhu Park MD PhD [address] [place] [phone] 12/10/2024 11:30 EDT Office Visit [facility] Surgical Oncology - [address] [phone] [facility] Blood PA-C [address] [place] [address], [facility] 2 [place] [phone] documented as of this encounter Visit Diagnoses Diagnosis Dense breast tissue on mammogram- Primary documented in this encounter Care Teams Delivery Room Clerk Relationship Specialty Start Date End Date Indy Champion MD [address] [place] [address] [id number] PCP - General 04/15/15 03/20/24 Rocio Hendrix MD [address] [place] [address] PCP - General Family Medicine - Primary Care 03/21/24 documented as of this encounter
--- OUTSIDE RECORDS SUMMARY | 2024-03-27 20:09 | XMS_ITS | Encounter Summary ---
Author Organization [facility] Address [address] [place] [address] Care Team Providers Care Case Hardener Name Role Phone Indy Champion MD Primary Care Provider Rocio Hendrix MD Primary Care Provider [phone] Encounter Details Date Type Department Care Team (Late st Contact Info) Description 03/15/2024 Lab Requisition [facility] Pathology & Laboratory Medicine - [facility] [address] [place] [address] Lisa Prajapati [address] [place] [address] [place] [address] Neoplasm of uncertain behavior of [...] Contact Info) Description 04/23/2024 9:30 EDT Appointment [facility] Endoscopy - [address] 550221 Marcellus Walsh MD [address] [place] [address] 5 [place] [phone] 05/01/2024 13:30 EDT Appointment [facility] Breast Imaging - [address] [phone] 05/15/2024 15:00 EST Telemedicine [facility] Gastroenterology - [address] [phone] Madhu Park MD PhD [address] [place] [address] 5 [place] [phone] 12/10/2024 11:30 EDT Office Visit [facility] Surgical Oncology - [address] [phone] [facility], PAPrabhaC [address] [place] [address], [facility] 2 [place] [phone] documented as of this encounter Procedures Procedure [...] explore management options, if applicable. 03/16/2024 13:24 [facility] Final Diagnosis A. SKIN OF FOREHEAD, LEFT LATERAL, SHAVE BIOPSY: - Basal cell carcinoma, superficial multicentric type. - Lesion extends to peripheral edge of biopsy specimen. 03/16/2024 13:24 [facility] Attestation By the signature below, the attending physician certifies that they have 1) personally conducted a gross and/or microscopic examination of the described specimen(s), and/or personally interpreted the results of laboratory testing of the described specimen(s), and 2) personally rendered or confirmed the above diagnosis. 03/16/2024 13:24 [facility] at 1324 Clinical History Basal cell carcinoma vs inflammatory papule; clinical diagnosis code: D48.5 03/16/2024 13:24 [facility] Gross Description A. Received in formalin labelled with proper patient identification (initials T, D) and left lateral forehead is a shave biopsy of irregular pearly brown skin (0.6 x 0.4 x 0.1 cm). The margin is inked blue, the specimen is bisected and entirely submitted in A1. Mar Ferguson 03/15/2024 11:38 03/16/2024 13:24 T [facility] Performing Lab [facility] 03/16/2024 13:24 T [facility] Scanned Images 03/16/2024 13:24 [facility] Tissue SPECIMEN FROM SKIN / Unknown 03/14/2024 12:28 EDT 03/15/2024 8:06 EDT Lisa Prajapati PATHOLOGY ORDERABLES [facility] [address] [place] [address] documented in this encounter Visit Diagnoses Diagnosis Neoplasm of uncertain behavior of skin documented in this encounter Care Teams Case Hardener Relationship Specialty Start Date End Date Indy Champion MD [address] [place] [address] PCP - General 04/15/15 03/20/24 Rocio Hendrix MD [address] [place] [address] PCP - General Family Medicine - Primary Care 03/21/24 documented as of this encounter
--- OUTSIDE RECORDS SUMMARY | 2024-03-27 20:09 | XMS_ITS | Encounter Summary ---
Author Organization [facility] Address [address] [place] [address] Care Team Providers Care Information Systems Analyst Name Role Phone Indy Champion MD Primary Care Provider Reason for Referral * (Routine/Next Available) - Receiving Office to Obtain Authorization Specialty Diagnoses / Procedures Referred By Contac t Referred To Contact Procedures US OUTSIDE IMAGES BODY Imaging, External Referral ID Status Reason Start Date Expiration Date Visits Requested Visits Authorized [id number] Receiving Office to Obtain Authorization 03/02/2024 1 1 Reason for Visit * (Routine/Next Available) - Receiving Office to Obtain Authorization Specialty Diagnoses / Procedures Referred By Contac t Referred To Contact Procedures US OUTSIDE IMAGES BODY Imaging, External Referral ID Status Reason Start Date Expiration Date Visits Requested Visits Authorized [id number] Receiving Office to Obtain Authorization 03/02/2024 1 1 Encounter Details Date Type Department Care Team (Latest Contact Info) Description 02/28/2024 - 02/28/2024 23:59 EDT Hospital Encounter [facility] Secondary Reads [place] Discharge Disposition: [...] Contact Info) Description 04/23/2024 9:30 EDT Appointment [facility] Endoscopy - [address] 717231 Marcellus Walsh MD [address] [place] [address] [phone] 05/01/2024 13:30 EDT Appointment [facility] Breast Imaging - [address] [phone] 05/15/2024 15:00 EST Telemedicine [facility] Gastroenterology - [address] 019971 Madhu Park MD PhD [address] [place] [address] [phone] 12/10/2024 11:30 EDT Office Visit [facility] Surgical Oncology - [facility] [address] [place], [place] [phone] [facility] PA-C [address] [facility], [facility], [place] [address] [place] [address] documented as of this encounter [...] on filedocumented in this encounter Care Teams Information Systems Analyst Relationship Specialty Start Date End Date Indy Champion MD [address] [place], [place] 690051 PCP - General 04/15/15 03/20/24 documented as of this encounter
--- OUTSIDE RECORDS SUMMARY | 2024-03-27 20:09 | XMS_ITS | Encounter Summary ---
Author Organization [facility] Address [address] [place] [address] Care Team Providers Care Transportation Department Supervisor Name Role Phone Indy Champion MD Primary Care Provider Reason for Visit * Reason Onset Date Comments Appointment Related 02/27/2021 Encounter Details Date Type Department Care Team (Late st Contact Info) Description 02/27/[address] [phone] Indy Champion MD [address] [email or web address] [place], [place] [phone] Appointment Related Social History Tobacco Use Types [...] Description 04/23/2024 9:30 EDT Appointment [facility] Endoscopy - [address] [phone] Marcellus Walsh MD [address] [place] [address] [phone] 05/01/2024 13:30 EDT Appointment [facility] Breast Imaging - [address] [phone] 05/15/2024 15:00 EST Telemedicine [facility] Gastroenterology - [address] [phone] Madhu Park MD PhD [address] [place] [address] [phone] 12/10/2024 11:30 EDT Office Visit [facility] Surgical Oncology - [facility] [place] [address] [place], [place] [phone] Magn[facility] Blood PA-C 111 [facility], [facility], Level [address] [place] [phone] documented as of this encounter Visit Diagnoses Not on filedocumented in this encounter Care Teams Transportation Department Supervisor Relationship Specialty Start Date End Date Indy Champion MD [address] [place] [address] PCP - General 04/15/15 03/20/24 documented as of this encounter
--- OUTSIDE RECORDS SUMMARY | 2024-03-27 20:09 | XMS_ITS | Encounter Summary ---
Author Organization [facility] Address [address] [place] [address] Care Team Providers Care Press Pipe Inspector Name Role Phone Indy Champion MD Primary Care Provider Reason for Visit * Reason Onset Date Comments Appointment Related 12/16/2021 Encounter Details Date Type Department Care Team (Late st Contact Info) Description [facility]/16[facility] Mammography - [address] [address] Jenna Pinto Appointment Related Social History Tobacco [...] Description 04/23/2024 9:30 EDT Appointment [facility] Endoscopy - [address] 618461 Marcellus Walsh MD [address] [place] [address] [phone] 05/01/2024 13:30 EDT Appointment [facility] Breast Imaging - [address] [phone] 05/15/2024 15:00 EST Telemedicine [facility] Gastroenterology - [address] [phone] Madhu Park MD PhD [address] [place] [address] [phone] 12/10/2024 11:30 EDT Office Visit [facility] Surgical Oncology - [address] [phone] [facility], PA-C [address] [place] [address], [facility] 2 [place] [phone] documented as of this encounter Visit Diagnoses Not on filedocumented in this encounter Care Teams Press Pipe Inspector Relationship Specialty Start Date End Date Indy Champion MD [address] [place] [address] PCP - General 04/15/15 03/20/24 documented as of this encounter
--- OUTSIDE RECORDS SUMMARY | 2024-03-27 20:09 | XMS_ITS | Encounter Summary ---
Author Organization [facility] Address [address] [place] [address] Care Team Providers Care Loader Operator Supervisor Name Role Phone Indy Champion MD [...] Info) Description 04/23/2024 9:30 EDT Appointment [facility] Endoscopy - [address] 588221 Marcellus Walsh MD [address] [place] [address] 5 [place] [phone] 05/01/2024 13:30 EDT Appointment [facility] Breast Imaging - [address] [phone] 05/15/2024 15:00 EST Telemedicine [facility] Gastroenterology - [address] [phone] Madhu Park MD PhD [address] [place] [address] 5 [place] [phone] 12/10/2024 11:30 EDT Office Visit [facility] Surgical Oncology - [address] [phone] [facility], PA-C [address] [place] [address], [place] 2 [place] [phone] documented as of this encounter Visit Diagnoses Not on filedocumented in this encounter Care Teams Loader Operator Supervisor Relationship Specialty Start Date End Date Indy Champion MD [address] [place] [address] PCP - General 04/15/15 03/20/24 documented as of this encounter
--- OUTSIDE RECORDS SUMMARY | 2024-03-27 20:09 | XMS_ITS | Encounter Summary ---
Author Organization [facility] Address [address] [place] [address] Care Team Providers Care Shipping Lead Name Role Phone Indy Champion MD Primary Care Provider Reason for Visit * Reason Onset Date Comments Appointment Related 06/09/2021 Encounter Details Date Type Department Care Team (Late st Contact Info) Description 06/09/2021 Telephone [facility] Surgical Oncology - [address] [id number] Magnolia Blood, PA-C [address] [place] [address], Level 2 [place] [address] Appointment Related Social History Tobacco [...] to: 06/11/2021 - pt is aware Lety Chacon 06/09/2021 9:27 documented in this encounter Plan of Treatment Upcoming Encounters Date Type Department Care Team (Late st Contact Info) Description 04/23/2024 9:30 EDT Appointment [facility] Endoscopy - [address] [address] Marcellus Walsh MD [address] [place] [phone] 05/01/2024 13:30 EDT Appointment [facility] Breast Imaging - [address] [phone] 05/15/2024 15:00 EST Telemedicine [facility] Gastroenterology - [address] 214641 Madhu Park MD PhD [address] [place] [phone] 12/10/2024 11:30 EDT Office Visit [facility] Surgical Oncology - [address] [phone] Magnolia Blood, PA-C [address] [place] [address], [facility] 2 [place] [phone] documented as of this encounter Visit Diagnoses Not on filedocumented in this encounter Care Teams Shipping Lead Relationship Specialty Start Date End Date Indy Champion MD [address] [place] [address] PCP - General 04/15/15 03/20/24 documented as of this encounter
--- OUTSIDE RECORDS SUMMARY | 2024-03-27 20:09 | XMS_ITS | Encounter Summary ---
Author Organization [facility] Address [address] [place] [address] Care Team Providers Care Narcotics And Vice Detective Name Role Phone Indy Champion MD Primary Care Provider Reason for Visit * Reason Comments Follow-up Encounter Details Date Type Department Care Team (Late st Contact Info) Description 06/11/2021 15:00 EST Office Visit [facility] Surgical Oncology - [address] 419351 Magnolia Blood PAPrabhaC [address] [place] [address], Level 2 [place] [address] Dense breast tissue on mammogram [...] Follow-up HPI: Division of Surgical Oncology- Breast [facility] PROGRESS NOTE/FOLLOW UP- 06/11/2021 PROBLEM: [...] history since her last visit here. ?? 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 Menarche at age 14. ??. ??First delivery at age 36. ?? SOCIAL HISTORY: , lives in [place].?One??of her sons lives in [place] and the other is in [place]. ? FAMILY HISTORY: No family history of [...] MOHS SURGERY 11/2009 basal cell carcinoma, right zoroastrian Family History Problem Relation Age of Onset [...] ultrasound was performed using the 6-15 MHz [employer] ABUS device. All 4 quadrants and the [...] Patient can see her PCP or her BIOMEDICAL REPAIR TECHNICIAN in 6 months for an additional clinical [...] Contact Info) Description 04/23/2024 9:30 EDT Appointment [facility] Endoscopy - [address] [phone] Marcellus Walsh MD [address] [place] [address] 5 [place] [phone] 05/01/2024 13:30 EDT Appointment [facility] Breast Imaging - [address] [phone] 05/15/2024 15:00 EST Telemedicine [facility] Gastroenterology - [address] [phone] Madhu Park MD PhD [address] [place] [address] [phone] 12/10/2024 11:30 EDT Office Visit [facility] Surgical Oncology - [address] [phone] Magnolia Blood PA-C [address] [place] [address] 2 [place] [phone] documented as of this encounter Procedures Procedure Name Priority Date/Time Associated Diagnosis Comments ORDERS - SCANNED 12/23/2021 7:05 EDT documented in this encounter Results * ORDERS - SCANNED (12/23/2021 7:05 EDT) 12/23/2021 7:05 EDT Scan 2 Outpatient Physical Therapist Assistant ADMISSION ORDERABLE S documented in this encounter Visit Diagnoses Diagnosis Dense breast tissue on mammogram- Primary documented in this encounter Historical Medications * This list may reflect changes made after this encounter. Medication Sig Dispensed Refills Start Date End Date CHOLECALCIFEROL, VITAMIN D3, ORAL Take by mouth. added in this encounter Care Teams Narcotics And Vice Detective Relationship Specialty Start Date End Date Indy Champion MD [address] [place] [address] PCP - General 04/15/15 03/20/24 documented as of this encounter
--- OUTSIDE RECORDS SUMMARY | 2024-03-27 20:09 | XMS_ITS | Encounter Summary ---
Author Organization [facility] Address [address] [place] [address] Care Team Providers Care Occup Therapist Name Role Phone Indy Champion MD Primary Care Provider Reason for Visit * Reason Onset Date Comments Appointment Related 02/05/2021 Encounter Details Date Type Department Care Team (Late st Contact Info) Description 02/05/2021 [facility] [place] [address] Viktoria Herr Appointment Related Social History Tobacco [...] Contact Info) Description 04/23/2024 9:30 EDT Appointment [facility] Endoscopy - [address] [phone] Marcellus Walsh MD [address] [place] [address] 5 [place] [phone] 05/01/2024 13:30 EDT Appointment [facility] Breast Imaging - [address] [phone] 05/15/2024 15:00 EST Telemedicine [facility] Gastroenterology - [address] [phone] Madhu Park MD PhD [address] [place] [address] 5 [place] [phone] 12/10/2024 11:30 EDT Office Visit [facility] Surgical Oncology - [address] [phone] Magnolia Blood PA-C [address] [place] [address], [facility] 2 [place] [phone] documented as of this encounter Visit Diagnoses Not on filedocumented in this encounter Care Teams Occup Therapist Relationship Specialty Start Date End Date Indy Champion MD [address] [place] [address] PCP - General 04/15/15 03/20/24 documented as of this encounter
--- OUTSIDE RECORDS SUMMARY | 2024-03-27 20:09 | XMS_ITS | Encounter Summary ---
Author Organization [facility] Address [address] [place] [address] Care Team Providers Care Environmental Services Specialist Name Role Phone Indy Champion MD Primary Care Provider Reason for Referral * Radiology Services (Routine/Next Available) - Authorization Not Required Specialty Diagnoses / Procedures Referred By Dedra t Referred To Contact Diagnoses Dense breast tissue on mammogram Encounter for other screening for malignant neoplasm of breast Procedures US ABUS BREAST SCREENING BILATERAL US BREAST SCREENING ONLY BILATERAL Magnolia Blood PA-C [address] [phone] [facility] Referral ID Status Reason Start Date Expiration Date Visits Requested Visits Authorized [id number] Authorization Not Required 06/16/2022 1 1 Reason for Visit * Radiology Services (Routine/Next Available) - Authorization Not Required Specialty Diagnoses / Procedures Referred By Dedra sampson Referred To Contact Diagnoses Dense breast tissue on mammogram Encounter for other screening for malignant neoplasm of breast Procedures US ABUS BREAST SCREENING BILATERAL US BREAST SCREENING ONLY BILATERAL Magnolia Blood PA-C [address] [phone] [facility] Referral ID Status Reason Start Date Expiration Date Visits Requested Visits Authorized [id number] Authorization Not Required 06/16/2022 1 1 Encounter Details Date Type Department Care Team (Latest Contact Info) Description 05/05/2023 13:14 EDT - 05/05/2023 23:59 EDT Hospital Encounter [facility] Breast Imaging - [facility] 1 [place] [address] Dense breast tissue on mammogram; Encounter for [...] Contact Info) Description 04/23/2024 9:30 EDT Appointment [facility] Endoscopy - [address] [address] Marcellus Walsh MD [address] [place] [phone] 05/01/2024 13:30 EDT Appointment [facility] Breast Imaging - [address] [phone] 05/15/2024 15:00 EST Telemedicine [facility] Gastroenterology - [address] [phone] Madhu Park MD PhD [address] [place] [address] 5 [place] [phone] 12/10/2024 11:30 EDT Office Visit [facility] Surgical Oncology - [address] [phone] Magnolia Blood PA-C [address] [place] [address], [facility] 2 [place] [phone] documented as of this encounter Procedures Procedure [...] ultrasound was performed using the 6-15 MHz [employer] ABUS device. All 4 quadrants and the [...] regarding any findings which require additional imaging. [id number] Magnolia VARGAS US ORDERABL ES documented in this encounter Visit Diagnoses Diagnosis Dense breast tissue on mammogram Encounter for other screening for malignant neoplasm of breast documented in this encounter Care Teams Environmental Services Specialist Relationship Specialty Start Date End Date Indy Champion MD [address] [place] [address] PCP - General 04/15/15 03/20/24 documented as of this encounter
--- OUTSIDE RECORDS SUMMARY | 2024-03-27 20:09 | XMS_ITS | Encounter Summary ---
Author Organization [facility] Address [address] [place] [address] Care Team Providers Care Carton Forming Machine Adjuster Name Role Phone Indy Champion [...] Appointment [facility] Endoscopy - [address] [phone] Marcellus Walsh MD [address] [place] [address] 5 [place] [phone] 05/01/2024 13:30 EDT Appointment [facility] Breast Imaging - [address] [phone] 05/15/2024 15:00 EST Telemedicine [facility] Gastroenterology - [address] [phone] Madhu Park MD PhD [address] [place] [address] 5 [place] [phone] 12/10/2024 11:30 EDT Office Visit [facility] Surgical Oncology - [address] [phone] Magnolia Blood, PA-C [address] [place] [address], [facility] 2 [place] [phone] documented as of this encounter Visit Diagnoses Not on filedocumented in this encounter Care Teams Carton Forming Machine Adjuster Relationship Specialty Start Date End Date Indy Champion MD [address] [place] [address] PCP - General 04/15/15 03/20/24 documented as of this encounter
--- OUTSIDE RECORDS SUMMARY | 2024-03-27 20:09 | XMS_ITS | Encounter Summary ---
Author Organization [facility] Address [address] [place] [address] Care Team Providers Care Advisory Services Associate Name Role Phone Indy Champion MD Primary [...] Contact Info) Description 04/23/2024 9:30 EDT Appointment [facility] Endoscopy - [address] [phone] Marcellus Walsh MD [address] [place] [address] 5 [place] [phone] 05/01/2024 13:30 EDT Appointment [facility] Breast Imaging - [address] [phone] 05/15/2024 15:00 EST Telemedicine [facility] Gastroenterology - [address] [phone] Madhu Park MD PhD [address] [place] [address] 5 [place] [phone] 12/10/2024 11:30 EDT Office Visit [facility] Surgical Oncology - [address] [phone] Magnolia Blood, PA-C [address] [place] [address], [facility] 2 [place] [phone] documented as of this encounter Visit Diagnoses Not on filedocumented in this encounter Care Teams Advisory Services Associate Relationship Specialty Start Date End Date Indy Champion MD [address] [place] [address] PCP - General 04/15/15 03/20/24 documented as of this encounter
--- OUTSIDE RECORDS SUMMARY | 2024-03-27 20:09 | XMS_ITS | Encounter Summary ---
Author Organization [facility] Address [address] [place] [address] Care Team Providers Care Aoc Aadc Operations Staff Officer Name Role Phone Indy Champion MD Primary Care Provider Reason for Referral * Radiology Services (Routine) - Closed Specialty Diagnoses / Procedures Referred By Dedar sampson Referred To Contact Diagnoses Screening mammogram, encounter for Procedures MA BREAST SCREENING CINDY Indy Farr MD [facility] [place] [address] Referral ID Status Reason Start Date Expiration Date Visits Re quested Visits Authorized [id number] Closed 07/08/2020 1 1 Reason for Visit * Radiology Services (Routine) - Closed Specialty Diagnoses / Procedures Referred By Dedra sampson Referred To Contact Diagnoses Screening mammogram, encounter for Procedures MA BREAST SCREENING CINDY Indy Farr MD [facility] [place] [address] Referral ID Status Reason Start Date Expiration Date Visits Re quested Visits Authorized [id number] Closed 07/08/2020 1 1 Encounter Details Date Type Department Care Team (Latest Contact Info) Description 08/13/2020 10:40 EST - 08/13/2020 23:59 EST [facility] - [facility] [place] [address] [place] [address] Screening mammogram, encounter for Discharge Disposition: Home [...] Info) Description 04/23/2024 9:30 EDT Appointment [facility] Endoscopy - [address] [phone] Marcellus Walsh MD [address] [place] [address], [facility] 5 [place] [phone] 05/01/2024 13:30 EDT Appointment [facility] Breast Imaging - [address] [phone] 05/15/2024 15:00 EST Telemedicine [facility] Gastroenterology - [address] [phone] Madhu Park MD PhD [address] [place] [address] 5 [place] [phone] 12/10/2024 11:30 EDT Office Visit [facility] Surgical Oncology - [address] [phone] Magnolia Blood PAPrabhaC [address] [place] [address], [facility] 2 [place] [phone] documented as of this encounter Procedures Procedure [...] for documented in this encounter Care Teams Aoc Aadc Operations Staff Officer Relationship Specialty Start Date End Date Indy Champion MD [address] [place] [address] PCP - General 04/15/15 03/20/24 documented as of this encounter
--- OUTSIDE RECORDS SUMMARY | 2024-03-27 20:09 | XMS_ITS | Encounter Summary ---
Author Organization [facility] Address [address] [place] [address] Care Team Providers Care Principal Technical Specialist Name Role Phone Indy Champion MD Primary Care Provider Reason for Referral * Radiology Services (Routine/Next Available) - Authorization Not Required Specialty Diagnoses / Procedures Referred By Dedra sampson Referred To Contact Diagnoses Screening mammogram, encounter for Procedures MA BREAST SCREENING CINDY Indy Farr MD [facility] [place] [address] [facility] Referral ID Status Reason Start Date Expiration Date Visits Requested Visits Authorized [id number] Authorization Not Required 06/16/2022 1 1 Reason for Visit * Radiology Services (Routine/Next Available) - Authorization Not Required Specialty Diagnoses / Procedures Referred By Dedra sampson Referred To Contact Diagnoses Screening mammogram, encounter for Procedures MA BREAST SCREENING CINDY Indy Farr MD [facility] [place] [address] [facility] Referral ID Status Reason Start Date Expiration Date Visits Requested Visits Authorized [id number] Authorization Not Required 06/16/2022 1 1 Encounter Details Date Type Department Care Team (Latest Contact Info) Description 11/17/2022 11:12 EDT - 11/17/2022 23:59 EDT Hospital [facility] Mammography - [address] [address] Screening mammogram, encounter for Discharge Disposition: Home [...] [facility] Endoscopy - [address] [phone] Marcellus Walsh MD 111 [facility], Level 5 [place] [phone] 05/01/2024 13:30 EDT Appointment [facility] Breast Imaging - [facility] [place] [address] [place], [place] [phone] 05/15/2024 15:00 EST Telemedicine [facility] Gastroenterology - [address] [phone] Madhu Park MD PhD [address] [place] [address], Level 5 [place] [phone] 12/10/2024 11:30 EDT Office Visit [facility] Surgical Oncology - [address] [phone] Magnolia Blood PA-C [address] [place] [address], [facility] 2 [place] [phone] documented as of this encounter Procedures Procedure [...] for documented in this encounter Care Teams Principal Technical Specialist Relationship Specialty Start Date End Date Indy Champion MD [address] [place] [address] PCP - General 04/15/15 03/20/24 documented as of this encounter
--- OUTSIDE RECORDS SUMMARY | 2024-03-27 20:09 | XMS_ITS | Encounter Summary ---
Author Organization [facility] Address [address] [place] [address] Care Team Providers Care Safety Representative Name Role Phone Indy Champion MD Primary Care Provider Reason for Visit * Reason Comments Follow-up Encounter Details Date Type Department Care Team (Late st Contact Info) Description 11/24/2023 13:30 EDT Office Visit [facility] Surgical Oncology - [address] 991981 Magnolia Blood, PA-C [address] [place] [address], Level 2 [place] [phone] Dense breast tissue on mammogram, [...] HPI: Division of Surgical Oncology- Breast [facility] [place] PROGRESS NOTE/FOLLOW UP- 11/24/2023 PROBLEM: 1. Dense [...] denies any changes to her family history. 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 . First delivery at age 36. SOCIAL HISTORY: , lives in [place]. One of her sons lives in [place] and the other is in [place]. FAMILY HISTORY: No family history of breast [...] MOHS SURGERY 11/2009 basal cell carcinoma, right advent Family History Problem Relation Age of Onset [...] ultrasound was performed using the 6-15 MHz [employer] ABUS device. All 4 quadrants and the [...] Description 04/23/2024 9:30 EDT Appointment [facility] Endoscopy - [address] [phone] Marcellus Walsh MD [address] [place] [phone] 05/01/2024 13:30 EDT Appointment [facility] Breast Imaging - [address] [phone] 05/15/2024 15:00 EST Telemedicine [facility] Gastroenterology - [address] 550711 Madhu Park MD PhD [address] [place] [phone] 12/10/2024 11:30 EDT Office Visit [facility] Surgical Oncology - [address] [phone] Magnolia Blood PA-C 111 [facility], Level 2 [place] [phone] documented as of this encounter Procedures Procedure Name Priority Date/Time Associated Diagnosis Comments ORDERS - SCANNED 02/15/2024 17:41 EDT documented in this encounter Results * ORDERS - SCANNED (02/15/2024 17:41 EDT) 02/15/2024 17:4 1 EDT Scan 2 Fig Caprifier ADMISSION ORDERABLE S documented in this encounter Visit Diagnoses Diagnosis Dense breast tissue on mammogram, unspecified type- Primary documented in this encounter Care Teams Safety Representative Relationship Specialty Start Date End Date Indy Champion MD [address] [place] [address] PCP - General 04/15/15 03/20/24 documented as of this encounter
--- OUTSIDE RECORDS SUMMARY | 2024-03-27 20:09 | XMS_ITS | Encounter Summary ---
Author Organization [facility] Address [address] [place] [address] Care Team Providers Care Graduate Student Name Role Phone Indy Champion MD Primary Care Provider Reason for Referral * Radiology Services (Routine/Next Available) - Authorization Not Required Specialty Diagnoses / Procedures Referred By Dedra sampson Referred To Contact Diagnoses Encounter for screening mammogram for malignant neoplasm of breast Procedures MA BREAST SCREENING CINDY BILATERAL Indy Champion MD [facility] [address] [facility] Referral ID Status Reason Start Date Expiration Date Visits Requested Visits Authorized [id number] Authorization Not Required 3 1 1 Reason for Visit * Radiology Services (Routine/Next Available) - Authorization Not Required Specialty Diagnoses / Procedures Referred By Dedra sampson Referred To Contact Diagnoses Encounter for screening mammogram for malignant neoplasm of breast Procedures MA BREAST SCREENING CINDY BILATERAL Indy Champion MD [address] [place] [address] [facility] Referral ID Status Reason Start Date Expiration Date Visits Requested Visits Authorized [id number] Authorization Not Required 3 1 1 Encounter Details Date Type Department Care Team (Latest Contact Info) Description 11/24/2023 13:49 EDT - 11/24/2023 23:59 EDT Hospital [facility] - [facility] [address] [place] [address] Encounter for screening mammogram for malignant neoplasm [...] Contact Info) Description 04/23/2024 9:30 EDT Appointment [facility] [place] [address] Marcellus Walsh MD 111 [facility], Level 5 [place] [phone] 05/01/2024 13:30 EDT Appointment [facility] Breast Imaging - [facility] [address] [place] 1 [place], [place] 360821 05/15/2024 15:00 EST Telemedicine [facility] Gastroenterology - [address] [phone] Madhu Park MD PhD [address] [place] [address], [facility] 5 [place] [phone] 12/10/2024 11:30 EDT Office Visit [facility] Surgical Oncology - [address] [phone] Magnolia Blood PAPrabhaC 111 [facility], Level 2 [place] [phone] documented as of this encounter Procedures Procedure [...] needed we will contact your patient directly. [id number] Narrative 11/25/2023 9:17 EDT MA BREAST SCREENING [...] other abnormalities are seen. Resulting Agency Comment [id number] Procedure Note Carissa Kendall MD - 11/25/2023 [...] is needed we will contact yourpatient directly. [id number] Indy Champion MD IMG MAMMOGRAPHY ORDERABLES documented in this encounter Visit Diagnoses Diagnosis Encounter for screening mammogram for malignant neoplasm of breast Other screening mammogram documented in this encounter Care Teams Graduate Student Relationship Specialty Start Date End Date Indy Champion MD [address] [place] [address] PCP - General 04/15/15 03/20/24 documented as of this encounter
--- OUTSIDE RECORDS SUMMARY | 2024-03-27 20:09 | XMS_ITS | Encounter Summary ---
Author Organization [facility] Address [address] [place] [address] Care Team Providers Care Threshing Machine Operator Name Role Phone Indy Champion MD Primary Care Provider Reason for Referral * Radiology Services (Routine) - Closed Specialty Diagnoses / Procedures Referred By Dedra sampson Referred To Contact Diagnoses Dense breast tissue on mammogram Procedures US BREAST SCREENING ONLY BILATERAL US ABUS BREAST SCREENING BILATERAL US BREAST SCREENING ONLY BILATERAL [facility] PA-C [address] [place] [phone] Referral ID Status Reason Start Date Expiration Date Visits Re quested Visits Authorized [id number] Closed 11/09/2019 1 1 Reason for Visit * Radiology Services (Routine) - Closed Specialty Diagnoses / Procedures Referred By Dedra sampson Referred To Contact Diagnoses Dense breast tissue on mammogram Procedures US BREAST SCREENING ONLY BILATERAL US ABUS BREAST SCREENING BILATERAL US BREAST SCREENING ONLY BILATERAL [facility] PA-C [address] [place] [phone] Referral ID Status Reason Start Date Expiration Date Visits Re quested Visits Authorized [id number] Closed 11/09/2019 1 1 Encounter Details Date Type Department Care Team (Latest Contact Info) Description 02/14/2020 9:44 EDT - 02/14/2020 23:59 EDT Hospital Encounter [facility] Breast Imaging Ultrasound [address] [address] Dense breast tissue on mammogram Discharge Disposition: [...] Description 04/23/2024 9:30 EDT Appointment [facility] Endoscopy - [address] 104181 Marcellus Walsh MD [address] [place] [address] 5 [place] [phone] 05/01/2024 13:30 EDT Appointment [facility] Breast Imaging - [facility] [place] 1 [place], [place] [phone] 05/15/2024 15:00 EST Telemedicine [facility] Gastroenterology - [address] 705831 Madhu Park MD PhD [address] [place] [address] 5 [place] [phone] 12/10/2024 11:30 EDT Office Visit [facility] Surgical Oncology - [address] [phone] [facility] PAPrabhaC [address] [place] [address], [facility] 2 [place] [phone] documented as of this encounter Procedures Procedure [...] mammogram documented in this encounter Care Teams Threshing Machine Operator Relationship Specialty Start Date End Date Indy Champion MD 7 [place] [address] PCP - General 04/15/15 03/20/24 documented as of this encounter
--- OUTSIDE RECORDS SUMMARY | 2024-03-27 20:09 | XMS_ITS | Encounter Summary ---
Author Organization [facility] Address [address] [place] [address] Care Team Providers Care Concrete Journeyman Name Role Phone Indy Champion MD Primary Care Provider Rocio Hendrix MD Primary Care Provider [phone] Encounter Details Date Type Department Care Team (Late st Contact Info) Description 02/15/2024 Lab Requisition [facility] Pathology & Laboratory Medicine - [address] [address] Outr Resulting Lab, Provider Social History Tobacco [...] Contact Info) Description 04/23/2024 9:30 EDT Appointment [facility] Endoscopy - [address] [phone] Marcellus Walsh MD [address] [place] [address] 5 [place] [phone] 05/01/2024 13:30 EDT Appointment [facility] Breast Imaging - [facility] [place] 1 [place], [place] [phone] 05/15/2024 15:00 EST Telemedicine [facility] Gastroenterology - [address] [phone] Madhu Park MD PhD [address] [place] [phone] 12/10/2024 11:30 EDT Office Visit [facility] Surgical Oncology - [address] [phone] [facility] PAPrabhaC [address] [place] [address], [facility] 2 [place] [phone] documented as of this encounter Procedures Procedure Name Priority Date/Time Associated Diagnosis Comments ANTI NUCLEAR AB (REMY), IFA Routine 02/14/2024 14:10 EDT documented in this encounter Results * ANTI NUCLEAR AB (REMY), IFA (02/14/2024 14:10 EDT) REMY Interpretation Negative Negative 2023 14:25 EDT [facility] Comment:No titer performed, REMY Screen is negative. Blood VENOUS BLOOD / Unknown 02/14/2024 14:10 EDT 02/15/2024 17:13 EDT Narrative [facility] - 02/16/2024 14:25 EDT Results were obtained with the Fooooo NOVA Lite HEp-2 REMY Kit by indirect immunofluorescence. Provider Outr Resulting Lab IMMUNOLOGY A ND SEROLOGY ORDERABLES [facility] [address] [place], [place] [address] documented in this encounter Visit Diagnoses Not on filedocumented in this encounter Care Teams Concrete Journeyman Relationship Specialty Start Date End Date Indy Champion MD [address] [place] [address] PCP - General 04/15/15 03/20/24 Rocio Hendrix MD 4 [place] [address] PCP - General Family Medicine - Primary Care 03/21/24 documented as of this encounter
--- OUTSIDE RECORDS SUMMARY | 2024-03-27 20:09 | XMS_ITS | Encounter Summary ---
Author Organization [facility] Address [address] [place] [address] Care Team Providers Care Braided Rug Maker Name Role Phone Indy Champion MD Primary Care Provider Reason for Visit * Reason Onset Date Comments Appointment Related 05/27/2023 Encounter Details Date Type Department Care Team (Late st Contact Info) Description 05/27/2023 Telephone [facility] Surgical Oncology - [address] [phone] [facility], PA-C [address] [place] [address], Level [address] [place] [phone] Appointment Related Social History Tobacco [...] asking to cancel andreschedule her appt with COMPLAINT SPECIALIST [facility], currently scheduled for 06/15/23 at [...] and she will find it on her [employer] portal. If the appt does not work for her, she will contact this clinic to request rescheduling. Please reschedule the noted appt. documented in this encounter Plan of Treatment Upcoming Encounters Date Type Department Care Team (Late st Contact Info) Description 04/23/2024 9:30 EDT Appointment [facility] Endoscopy - [address] [phone] Marcellus Walsh MD [address] [phone] 05/01/2024 13:30 EDT Appointment [facility] Breast Imaging - [address] [phone] 05/15/2024 15:00 EST Telemedicine [facility] Gastroenterology - [address] 375561 Madhu Park MD PhD [address] [place] [phone] 12/10/2024 11:30 EDT Office Visit [facility] Surgical Oncology - [facility] [address] [place], [place] 9056[address] [facility] Blood PA-C 111 [facility], Level 2 [place] [phone] documented as of this encounter Visit Diagnoses Not on filedocumented in this encounter Care Teams Braided Rug Maker Relationship Specialty Start Date End Date Indy Champion MD 7 [place] [address] PCP - General 04/15/15 03/20/24 documented as of this encounter
--- OUTSIDE RECORDS SUMMARY | 2024-03-27 20:09 | XMS_ITS | Encounter Summary ---
Author Organization [facility] Address [address] [place] [address] Care Team Providers Care Application Packaging Consultant Name Role Phone Indy Champion MD Primary Care Provider Reason for Referral * Radiology Services (Routine/Next Available) - Authorization Not Required Specialty Diagnoses / Procedures Referred By Dedra t Referred To Contact Diagnoses Dense breast tissue on mammogram Encounter for other screening for malignant neoplasm of breast Procedures US ABUS BREAST SCREENING BILATERAL US BREAST SCREENING ONLY BILATERAL [facility] PA-C [address] [phone] [facility] Referral ID Status Reason Start Date Expiration Date Visits Requested Visits Authorized [id number] Authorization Not Required 06/11/2021 1 1 Reason for Visit * Radiology Services (Routine/Next Available) - Authorization Not Required Specialty Diagnoses / Procedures Referred By Dedra sampson Referred To Contact Diagnoses Dense breast tissue on mammogram Encounter for other screening for malignant neoplasm of breast Procedures US ABUS BREAST SCREENING BILATERAL US BREAST SCREENING ONLY BILATERAL [facility] PA-C [address] [place] [phone] [facility] Referral ID Status Reason Start Date Expiration Date Visits Requested Visits Authorized [id number] Authorization Not Required 06/11/2021 1 1 Encounter Details Date Type Department Care Team (Latest Contact Info) Description 03/04/2022 10:21 EDT - 03/04/2022 23:59 EDT Hospital Encounter [facility] Breast Imaging - [facility] 1 [place] [address] Dense breast tissue on mammogram; Encounter for [...] Info) Description 04/23/2024 9:30 EDT Appointment [facility] Endoscopy - [address] [phone] Marcellus Walsh MD [address] [place] [phone] 05/01/2024 13:30 EDT Appointment [facility] Breast Imaging - [address] [phone] 05/15/2024 15:00 EST Telemedicine [facility] Gastroenterology - [address] [phone] Madhu Park MD PhD [address] [place] [phone] 12/10/2024 11:30 EDT Office Visit [facility] Surgical Oncology - [address] [phone] [facility] Blood PA-C [address] [place] [address], [facility] 2 [place] [phone] documented as of this encounter Procedures Procedure [...] ultrasound was performed using the 6-15 MHz VasSol InvNewAer ABUS device. All 4 quadrants and the [...] breast documented in this encounter Care Teams Application Packaging Consultant Relationship Specialty Start Date End Date Indy Champion MD [address] [place] [address] PCP - General 04/15/15 03/20/24 documented as of this encounter
--- OUTSIDE RECORDS SUMMARY | 2024-03-27 20:09 | XMS_ITS | Encounter Summary ---
Author Organization [facility] Address [address] [place] [address] Care Team Providers Care Cinder Pitman Name Role Phone Indy Champion MD Primary Care Provider Rocio Hendrix MD Primary Care Provider [phone] Encounter Details Date Type Department Care Team (Late st Contact Info) Description 02/17/2022 Lab Requisition [facility] Pathology & Laboratory Medicine - [facility] [address] [place] [address] Tam Pal, PAPrabhaC [address] [facility] [address] [place] [phone] Neoplasm of uncertain behavior of [...] Description 04/23/2024 9:30 EDT Appointment [facility] Endoscopy - [address] [phone] Marcellus Walsh MD [address] [place] [phone] 05/01/2024 13:30 EDT Appointment [facility] Breast Imaging - [address] [phone] 05/15/2024 15:00 EST Telemedicine [facility] Gastroenterology - [address] [phone] Madhu Park MD PhD [address] [place] [phone] 12/10/2024 11:30 EDT Office Visit [facility] Surgical Oncology - [address] [phone] [facility], PAPrabhaC [address] [place] [address], [facility] 2 [place] [phone] documented as of this encounter [...] explore management options, if applicable. 02/17/2022 16:27 [facility] Final Diagnosis A. SKIN OF CHEEK, LEFT INFERIOR MEDIAL MALAR, SHAVE BIOPSY: - Basal cell carcinoma, superficial and nodular types. - Lesion extends to biopsy edge and base. 02/17/2022 16:27 [facility] Attestation By the signature below, the attending physician certifies that they have 1) personally conducted a gross and/or microscopic examination of the described specimen(s), and/or personally interpreted the results of laboratory testing of the described specimen(s), and 2) personally rendered or confirmed the above diagnosis. 02/17/2022 16:27 [facility] at 1627 Clinical History 8 mm suspicious telangiectatic papule; DDx: Rule-out basal cell carcinoma vs. other; clinical diagnosis code: D48.5 02/17/2022 16:27 [facility] Gross Description A. Received in formalin labelled with proper patient identification (initials T, D) and left inferior medial malar... is a shave biopsy of brown skin (0.6 x 0.3 x 0.1 cm). The margin is inked blue. The tissue is bisected and entirely submitted in A1. URI CAPELLAN(ASCP) 02/17/2022 7:38 02/17/2022 16:27 [facility] Performing Lab [facility] 02/17/2022 16:27 [facility] Scanned Images 02/17/2022 16:27 [facility] Tissue TISSUE SPECIMEN FROM SKIN / Unknown 02/16/2022 10:20 EDT 02/17/2022 6:04 EDT Tam Pal PA-C PATHOLOGY ORDERAB [facility] [address] [place] [address] documented in this encounter Visit Diagnoses Diagnosis Neoplasm of uncertain behavior of skin documented in this encounter Care Teams Cinder Pitman Relationship Specialty Start Date End Date Indy Champion MD [address] [place] [address] PCP - General 04/15/15 03/20/24 Rocio Hendrix MD [address] [place] [address] PCP - General Family Medicine - Primary Care 03/21/24 documented as of this encounter
--- OUTSIDE RECORDS SUMMARY | 2024-03-27 20:09 | XMS_ITS | Encounter Summary ---
Author Organization [facility] Address [address] [place] [address] Care Team Providers Care Welding Lead Burner Name Role Phone Indy Champion MD Primary Care Provider Rocio Hendrix MD Primary Care Provider [phone] Reason for Referral * Radiology Services (Routine/Next Available) - Authorization Not Required Specialty Diagnoses / Procedures Referred By Dedra sampson Referred To Contact Diagnoses Dense breast tissue on mammogram, unspecified type Procedures US ABUS BREAST SCREENING BILATERAL US BREAST SCREENING ONLY BILATERAL [facility] PA-C [address] [place] [phone] [facility] Referral ID Status Reason Start Date Expiration Date Visits Requested Visits Authorized [id number] Authorization Not Required 11/24/2023 1 1 Reason for Visit * Reason Onset Date Comments Complex Medical Problems 11/24/2023 Encounter Details Date Type Department Care Team (Late st Contact Info) Description 11/24/2023 Orders Only [facility] Surgical Oncology - [address] [address] Magn[facility] Blood PA-C [address] [place] [phone] Dense breast tissue on mammogram, unspecified [...] Contact Info) Description 04/23/2024 9:30 EDT Appointment [facility] Endoscopy - [address] [address] Marcellus Walsh MD [address] [place] [phone] 05/01/2024 13:30 EDT Appointment [facility] Breast Imaging - [address] [phone] 05/15/2024 15:00 EST Telemedicine [facility] Gastroenterology - [address] [phone] Madhu Park MD PhD [address] [place] [phone] 12/10/2024 11:30 EDT Office Visit [facility] Surgical Oncology - [address] [address] [facility] PA-C 111 [facility], Level [address] [place] [phone] Scheduled Orders Name Type Priority Associated Diagnoses Orde r Schedule US ABUS BREAST SCREENING BILATERAL Imaging Routine Dense Breast Tissue On Mammogram, Unspecified Type Expected: 05/06/2024, Expires: 05/26/2025 documented as of this encounter Visit Diagnoses Diagnosis Dense breast tissue on mammogram, unspecified type- Primary documented in this encounter Care Teams Welding Lead Burner Relationship Specialty Start Date End Date Indy Champion MD 7 [place] [address] PCP - General 04/15/15 03/20/24 Rocio Hendrix MD 4 [place] [address] PCP - General Family Medicine - Primary Care 03/21/24 documented as of this encounter
--- OUTSIDE RECORDS SUMMARY | 2024-03-27 20:10 | XMS_ITS | Encounter Summary ---
Author Organization [facility] Address [address] [place] [address] Care Team Providers Care Mechanical Sound Technician Name Role Phone Indy Champion MD Primary Care Provider Reason for Referral * Radiology Services (Routine) - Closed Specialty Diagnoses / Procedures Referred By [facility] Referred To Contact Diagnoses Dense breast tissue on mammogram Procedures US BREAST SCREENING ONLY BILATERAL US ABUS BREAST SCREENING BILATERAL US BREAST SCREENING ONLY BILATERAL [facility] PA-C [address] [place] [phone] Referral ID Status Reason Start Date Expiration Date Visits Re quested Visits Authorized [id number] Closed 11/09/2019 1 1 Reason for Visit * Reason Onset Date Comments Follow-up 05/24/2019 Encounter Details Date Type Department Care Team (Late st Contact Info) Description 05/24/2019 Orders Only [facility] Surgical Oncology - [address] [phone] [facility] Blood PA-C [address] [place] [phone] Dense breast tissue on mammogram (Primary [...] Appointment [facility] Endoscopy - [address] [phone] Marcellus Walsh MD [address] [place] [phone] 05/01/2024 13:30 EDT Appointment [facility] Breast Imaging - [address] [phone] 05/15/2024 15:00 EST Telemedicine [facility] Gastroenterology - [address] 684171 Madhu Park MD PhD [address] [place] [phone] 12/10/2024 11:30 EDT Office Visit [facility] Surgical Oncology - [address] [phone] [facility] PAPrabhaC [address] [place] [address] 2 [place] [phone] documented as of this encounter Results * [...] mammogram documented in this encounter Care Teams Mechanical Sound Technician Relationship Specialty Start Date End Date Indy Champion MD [address] [place] [address] PCP - General 04/15/15 03/20/24 documented as of this encounter
--- OUTSIDE RECORDS SUMMARY | 2024-03-27 20:10 | XMS_ITS | Encounter Summary ---
Author Organization [facility] Address [address] [place] [address] Care Team Providers Care Battery Service Technician Name Role Phone Indy Champion MD Primary Care Provider Reason for Visit * Reason Comments Follow-up Encounter Details Date Type Department Care Team (Late st Contact Info) Description 05/24/2019 13:30 EST Office Visit [facility] Surgical Oncology - [address] 065771 [facility] PAPrabhaC [address] [place] [address], Level 2 [place] [phone] Dense breast tissue on mammogram [...] Follow-up HPI: Division of Surgical Oncology- Breast [facility] PROGRESS NOTE/FOLLOW UP- 05/24/2019 PROBLEM: 1. [...] for basal cell carcinoma of the right anabaptist. She otherwise denies any changes to her health or her familyhistory. STUNNER ANIMAL HISTORY: Menarche at age 14. . First delivery at age 36. ?? SOCIAL HISTORY: , lives in [place]. One of her children is in college in [place]. ? FAMILY HISTORY: No family history of [...] MOHS SURGERY 11/2009 basal cell carcinoma, right anabaptist Family History Problem Relation Age of Onset [...] Clinical History/Comments: N60.11-Diffuse cystic mastopathy of right [id number]-74 N60.12-Diffuse cystic mastopathy of left hrcylb-GFE-09; High risk screening due to increased breast density on mammogram Comparisons: RAD ABUS SCREENING BILAT 11/22/2018 2:37 PM Clinical History/Comments: N60.11-Diffuse cystic mastopathy of right [id number]-BDU-62 N60.12-Diffuse cystic mastopathy of left sskdwr-DNJ-81; High risk screening due to increased breast density on mammogram Comparisons: Mammograms dated April 2018, April 2017, October 2016, April 2016, April 2015, April 2013, April 2012, March 2011. Screening whole breast ultrasound dated October 10, 2014, October 15, 2015, November 03, 2016, November 02, 2017. Technique: 3-D automated breast ultrasound was performed using the 6-15 MHz Ovuline InvLandscape Mobile ABUS device. All 4 quadrants and the [...] for basal cell carcinoma of the right anabaptist. She isunsure about her follow up with Dermatology and was encouraged to reach out to their office to discuss this. Plan: 1. Schedule screening mammogram, due 05/2020 2. Schedule HR screening ultrasound, due 11/2019 3. Return to clinic in 12 months for clinical breast exam. Patient can see her PCP or her STUNNER ANIMAL in 6 months for an additional clinical [...] Info) Description 04/23/2024 9:30 EDT Appointment [facility] Endoscopy - [address] [phone] Marcellus Walsh MD [address] [place] [phone] 05/01/2024 13:30 EDT Appointment [facility] Breast Imaging - [address] [place] [address] [phone] 05/15/2024 15:00 EST Telemedicine [facility] Gastroenterology - [address] 234351 Madhu Park MD PhD [address] [place] [phone] 12/10/2024 11:30 EDT Office Visit [facility] Surgical Oncology - [address] [phone] [facility] Blood PA-C [address] [place] [address], [facility] 2 [place] [phone] documented as of this encounter Procedures Procedure Name Priority Date/Time Associated Diagnosis Comments ORDERS - SCANNED 09/11/2019 13:56 EST documented in this encounter Results * ORDERS - SCANNED (09/11/2019 13:56 EST) 09/11/2019 13:5 6 EST Scan 2 Nuclear Radiation Engineer ADMISSION ORDERABLE S documented in this encounter Visit Diagnoses Diagnosis Dense breast tissue on mammogram- Primary documented in this encounter Historical Medications * This list may reflect changes made after this encounter. Medication Sig Dispensed Refills Start Date End Date ibuprofen (ADVIL ORAL) Take by mouth. added in this encounter Care Teams Battery Service Technician Relationship Specialty Start Date End Date Indy Champion MD [address] [place] [address] PCP - General 04/15/15 03/20/24 documented as of this encounter
--- OUTSIDE RECORDS SUMMARY | 2024-03-27 20:10 | XMS_ITS | Encounter Summary ---
Author Organization [facility] Address [address] [place] [address] Care Team Providers Care Community Specialist Name Role Phone Indy Champion MD Primary Care Provider Encounter Details Date Type Department Care Team (Latest Contact Info) Description 04/15/2015 7:41 EDT - 04/15/2015 23:59 EDT Hospital Encounter [facility] [address] [place] [address] Nurys Meza MD Discharge Disposition: Auto Discharge [...] Contact Info) Description 04/23/2024 9:30 EDT Appointment [facility] Endoscopy - [address] [phone] Marcellus Walsh MD [address] [place] [phone] 05/01/2024 13:30 EDT Appointment [facility] Breast Imaging - [address] [phone] 05/15/2024 15:00 EST Telemedicine [facility] Gastroenterology - [address] [phone] Madhu Park MD PhD [address] [place] [phone] 12/10/2024 11:30 EDT Office Visit [facility] Surgical Oncology - [address] [phone] [facility] Blood PA-C 111 [facility], Level 2 [place] [phone] documented as of this encounter [...] on filedocumented in this encounter Care Teams Community Specialist Relationship Specialty Start Date End Date Indy Champion MD [address] [place] [address] PCP - General 04/15/15 03/20/24 documented as of this encounter
--- OUTSIDE RECORDS SUMMARY | 2024-03-27 20:10 | XMS_ITS | Encounter Summary ---
Author Organization [facility] Address [address] [place] [address] Care Team Providers Care Denture Packer Name Role Phone Indy Champion MD Primary Care Provider Encounter Details Date Type Department Care Team (Latest Contact Info) Description 01/02/2018 9:51 EDT - 01/02/2018 9:52 EDT Hospital Encounter [address] [address] Lucius Wood MD [address] [place] [address] 3 [place] [phone] Discharge Disposition: Home or Self [...] Contact Info) Description 04/23/2024 9:30 EDT Appointment [facility] Endoscopy - [address] 878141 Marcellus Walsh MD [address] [place] [address] [phone] 05/01/2024 13:30 EDT Appointment [facility] Breast Imaging - [address] [phone] 05/15/2024 15:00 EST Telemedicine [facility] Gastroenterology - [address] 414631 Madhu Park MD PhD [address] [place] [address] [phone] 12/10/2024 11:30 EDT Office Visit [facility] Surgical Oncology - [address] [phone] [facility] PAPrabhaC [address] [place] [address], [facility] 2 [place] [phone] documented as of this encounter Visit Diagnoses Not on filedocumented in this encounter Care Teams Denture Packer Relationship Specialty Start Date End Date Indy Champion MD [address] [place] [address] PCP - General 04/15/15 03/20/24 documented as of this encounter
--- OUTSIDE RECORDS SUMMARY | 2024-03-27 20:10 | XMS_ITS | Encounter Summary ---
Author Organization [facility] Address [address] [place] [address] Care Team Providers Care Hot Stick Worker Name Role Phone Indy Champion MD Primary Care Provider Encounter Details Date Type Department Care Team (Late st Contact Info) Description 10/15/2015 9:49 EDT - 10/15/2015 23:59 EDT Hospital Encounter [facility] [address] [place] [address] [place] [address] Discharge Disposition: Home or Self Care Social [...] Code Departure Means Destination Home or Self Prison documented in this encounter Plan of Treatment Upcoming Encounters Date Type Department Care Team (Late st Contact Info) Description 04/23/2024 9:30 EDT Appointment [facility] Endoscopy - [address] [phone] Marcellus Walsh MD [address] [place] [address] [phone] 05/01/2024 13:30 EDT Appointment [facility] Breast Imaging - [address] [phone] 05/15/2024 15:00 EST Telemedicine [facility] Gastroenterology - [address] 690331 Madhu Park MD PhD [address] [place] [address] [phone] 12/10/2024 11:30 EDT Office Visit [facility] Surgical Oncology - [address] 204801 [facility], PA-C 111 [facility], Level 2 [place] [phone] documented as of this encounter Visit Diagnoses Not on filedocumented in this encounter Care Teams Hot Stick Worker Relationship Specialty Start Date End Date Indy Champion MD [address] [place] [address] PCP - General 04/15/15 03/20/24 documented as of this encounter
--- OUTSIDE RECORDS SUMMARY | 2024-03-27 20:10 | XMS_ITS | Encounter Summary ---
Author Organization [facility] Address [address] [place] [address] Care Team Providers Care Pressure Tank Operator Name Role Phone Indy Champion MD Primary Care Provider Encounter Details Date Type Department Care Team (Latest Contact Info) Description 12/14/2017 15:22 EDT - 12/14/2017 15:23 EDT Hospital Encounter [address] [address] Zacarias Santos MD [address] [place] [phone] Discharge Disposition: Home or Self Care [...] EDT Appointment [facility] Endoscopy - [address] 511611 Marcellus Walsh MD [address] [place] [address] [phone] 05/01/2024 13:30 EDT Appointment [facility] Breast Imaging - [address] 649001 05/15/2024 15:00 EST Telemedicine [facility] Gastroenterology - [address] [address] Madhu Park MD PhD [address] [place] [address] [phone] 12/10/2024 11:30 EDT Office Visit [facility] Surgical Oncology - [address] [phone] [facility] PA-C [address] [place] [address] 2 [place] [phone] documented as of this encounter [...] ? SANDHYA BARRETT ? Accession #: ? [id number] ? : ? 1960 (Age: 57) ??F ? Collect Date: ? 12/19/2017 ? Location: ? [facility] ? Receive Date: ? 12/20/2017 ? Provider: ZACARIAS SANTOS MD Copy to: [...] 0.1 cm). Submitted in toto in 1. Abdelrahman Curiel 12/20/2017 8:35 AM End of Report [facility] 12/19/2017 8:21 EDT 12/20/2017 8:21 EDT Zacarias Santos MD PATHOLOGY ORDERABLES [facility] [address] [place] [address] documented in this encounter Visit Diagnoses Not on filedocumented in this encounter Care Teams Pressure Tank Operator Relationship Specialty Start Date End Date Indy Champion MD 7 [place] [address] PCP - General 04/15/15 03/20/24 documented as of this encounter
--- OUTSIDE RECORDS SUMMARY | 2024-03-27 20:10 | XMS_ITS | Encounter Summary ---
Author Organization [facility] Address [address] [place] [address] Care Team Providers Care Production Repairer Name Role Phone Indy Champion MD Primary Care Provider Encounter Details Date Type Department Care Team (Latest Contact Info) Description 11/03/2016 10:00 EDT - 11/03/2016 23:59 EDT Hospital Encounter [facility] [address] [place] [address] Nurys Meza MD Discharge Disposition: Auto Discharge [...] understood. Pt hasalready been referred to the [facility]. Shannan from the [facility] will call the pt directly to discuss the needfor visit or not. branden 11-08-16 documented in this encounter Plan of Treatment Upcoming Encounters Date Type Department Care Team (Late st Contact Info) Description 04/23/2024 9:30 EDT Appointment [facility] Endoscopy - [address] [phone] Marcellus Walsh MD [address] [place] [address] [phone] 05/01/2024 13:30 EDT Appointment [facility] Breast Imaging - [address] 720661 05/15/2024 15:00 EST Telemedicine [facility] Gastroenterology - [address] [phone] Madhu Park MD PhD [address] [place] [address] [phone] 12/10/2024 11:30 EDT Office Visit [facility] Surgical Oncology - [address] [address] [facility] PA-C [address] [place] [address] Level 2 [place] [phone] documented as of this encounter [...] when reading/interpreting unformatted reports. Name: ? DINA BARRTET ? Accession #: ? [id number] ? : ? 1960 (Age: 56) ??F [...] See comment. ??- Dense interlobular fibrosis. Comment: Branch Rental Manager slides of this case were reviewed at [...] (ASCP) 11/03/2016 2:29 PM End of Report [facility] 11/03/2016 13:4 1 EDT 11/03/2016 13:41 EDT Carissa Godwin MD PATHOLOGY ORD ERABLES Performing Organization Address City/State/[facility] Co de Phone Number [facility] [address] [place] [address] documented in this encounter Visit Diagnoses Not on filedocumented in this encounter Care Teams Production Repairer Relationship Specialty Start Date End Date Indy Champion MD [address] [place] [address] PCP - General 04/15/15 03/20/24 documented as of this encounter
--- OUTSIDE RECORDS SUMMARY | 2024-03-27 20:10 | XMS_ITS | Encounter Summary ---
Author Organization [facility] Address [address] [place] [address] Care Team Providers Care Marketing Account Manager Name Role Phone Indy Champion MD Primary Care Provider Reason for Visit * Reason Comments Follow-up Encounter Details Date Type Department Care Team (Late st Contact Info) Description 04/20/2017 9:30 EDT Office Visit [facility] Surgical Oncology - [address] 813381 Indy Stein PA-C [address] [place] [address], Level 5 [place] [address] Diffuse cystic mastopathy of both [...] Reading Time Taken Comments Blood Pressure 132/63 04/20/201729 EDT Pulse 50 04/20/2017 09 EDT Temperature 36.2 ??C (97.1 ??F) 04/20/2017 [...] any changes inbreast skin or nipple discharge. 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 Menarche at age 14. First delivery at age 36. Perimenopausal. SOCIAL HISTORY: Sandhya is and lives in [place]. She has two sons. 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 She has one son studying film out in [place] and another son who recently transferred to [place] for loss [employer]. FAMILY HISTORY: No family history of breast [...] breast exam. 6 months with PCP or NUCLEAR INSTRUCTOR for anadditional CBE. 3. She is also [...] prepared with speech recognition software or keyboard databases software consultant techniques. Minor irregularities or keyboarding misprints may [...] 9:30 EDT Appointment [facility] Endoscopy - [address] 900721 Marcellus Walsh MD 111 [facility], Level 5 [place] [phone] 05/01/2024 13:30 EDT Appointment [facility] Breast Imaging - [address] [address] 05/15/2024 15:00 EST Telemedicine [facility] Gastroenterology - [address] 987701 Madhu Park MD PhD 111 [facility], Level 5 [place] [phone] 12/10/2024 11:30 EDT Office Visit [facility] Surgical Oncology - [facility] [address] [place], [place] [phone] [facility] PA-C 111 [facility], Level 2 [place] [phone] documented as of this encounter Procedures Procedure Name Priority Date/Time Associated Diagnosis Comments ORDERS - SCANNED 06/22/2017 12:53 EST documented in this encounter Results * ORDERS - SCANNED (06/22/2017 12:53 EST) 06/22/2017 12:5 3 EST Scan 2 Project Controls Specialist ADMISSION ORDERABLE S documented in this encounter Visit Diagnoses Diagnosis Diffuse cystic mastopathy of both breasts- Primary documented in this encounter Care Teams Marketing Account Manager Relationship Specialty Start Date End Date Indy Champion MD 7 [place] [address] PCP - General 04/15/15 03/20/24 documented as of this encounter
--- OUTSIDE RECORDS SUMMARY | 2024-03-27 20:10 | XMS_ITS | Encounter Summary ---
Author Organization [facility] Address [address] [place] [address] Care Team Providers Care Executive Personal Assistant Name Role Phone Indy Champion MD Primary Care Provider Encounter Details Date Type Department Care Team (Latest Contact Info) Description 11/03/2016 8:04 EDT - 11/03/2016 9:59 EDT Hospital Encounter [facility] [address] [place] [address] Nurys Meza MD Discharge Disposition: Auto Discharge [...] Contact Info) Description 04/23/2024 9:30 EDT Appointment [facility] Endoscopy - [address] [address] Marcellus Walsh MD [address] [place] [address] [phone] 05/01/2024 13:30 EDT Appointment [facility] Breast Imaging - [address] 659781 05/15/2024 15:00 EST Telemedicine [facility] Gastroenterology - [address] 933971 Madhu Park MD PhD [address] [place] [address] [phone] 12/10/2024 11:30 EDT Office Visit [facility] Surgical Oncology - [address] [phone] [facility], PA-C [address] [place] [address], [facility] 2 [place] [phone] documented as of this encounter Visit Diagnoses Not on filedocumented in this encounter Care Teams Executive Personal Assistant Relationship Specialty Start Date End Date Indy Champion MD 7 [place] [address] PCP - General 04/15/15 03/20/24 documented as of this encounter
--- OUTSIDE RECORDS SUMMARY | 2024-03-27 20:10 | XMS_ITS | Encounter Summary ---
Author Organization [facility] Address [address] [place] [address] Care Team Providers Care Paper Core Machine Operator Name Role Phone Indy Champion MD Primary Care Provider Reason for Referral * Radiology Services (Routine) - Closed Specialty Diagnoses / Procedures [facility] Referred To Contact Diagnoses Diffuse cystic mastopathy, unspecified laterality Procedures RAD US BREAST SCREENING ONLY BILATERAL Indy Stein PA-C [address] [place] [phone] Referral ID Status Reason Start Date Expiration Date Visits Re quested Visits Authorized [id number] Closed 04/15/2015 1 1 Reason for Visit * Reason Onset Date Comments Ultrasound 04/15/2015 high risk bilate ral breast ultrasound Encounter Details Date Type Department Care Team (Late st Contact Info) Description 04/15/2015 Orders Only [facility] Surgical Oncology - [address] 534001 Indy Stein PA-C [address] [place] [phone] Diffuse cystic mastopathy, unspecified laterality (Primary [...] Contact Info) Description 04/23/2024 9:30 EDT Appointment [facility] Endoscopy - [address] [phone] Marcellus Walsh MD [address] [place] [address] [phone] 05/01/2024 13:30 EDT Appointment [facility] Breast Imaging - [address] [phone] 05/15/2024 15:00 EST Telemedicine [facility] Gastroenterology - [address] 783001 Madhu Park MD PhD [address] [place] [address] [phone] 12/10/2024 11:30 EDT Office Visit [facility] Surgical Oncology - [address] [phone] [facility] PAPrabhaC [address] [place] [address], [facility] 2 [place] [phone] documented as of this encounter Procedures Procedure [...] and Symptoms/Comments: ??N60.19-Diffuse cystic mastopathy of unspecified [id number]; high risk, diffuse cystic mastopathy, dense breast, [...] were discussed with the patient by the shoe singer. Portions of this document may have been prepared with speech recognition software or keyboard data collection associate techniques. Minor irregularities or keyboarding misprints may be present. Procedure Note Araseli Ko MD - 10/29/2015 RAD US BREAST SCREENING ONLY BILATERAL 10/15/2015 11:03 AM Signs and Symptoms/Comments: N60.19-Diffuse cystic mastopathy of unspecified [id number]; high risk, diffuse cystic mastopathy, dense breast, [...] were discussed with the patient by the shoe singer. Portions of this document may have been prepared with speech recognition software or keyboard data collection associate techniques. Minor irregularities or keyboarding misprints may be present. Indy Stein PA-C [facility] ORDERABL ES documented in this encounter Visit Diagnoses Diagnosis Diffuse cystic mastopathy, unspecified laterality- Primary documented in this encounter Care Teams Paper Core Machine Operator Relationship Specialty Start Date End Date Indy Champion MD [address] [place] [address] PCP - General 04/15/15 03/20/24 documented as of this encounter
--- OUTSIDE RECORDS SUMMARY | 2024-03-27 20:10 | XMS_ITS | Encounter Summary ---
Author Organization [facility] Address [address] [place] [address] Care Team Providers Care Chuck Splitter Name Role Phone Indy Champion MD Primary Care Provider Reason for Visit * Reason Onset Date Comments Appointment Related 11/09/2016 Encounter Details Date Type Department Care Team (Late st Contact Info) Description 11/09/2016 Telephone [facility] Surgical Oncology - [facility] [address] [place], [place] 260801 Indy Stein PA-C [address] [place] [address], Level 5 [place] [phone] Appointment Related Social History Tobacco [...] Contact Info) Description 04/23/2024 9:30 EDT Appointment [facility] Endoscopy - [address] [phone] Marcellus Walsh MD [address] [place] [address] 5 [place] [phone] 05/01/2024 13:30 EDT Appointment [facility] Breast Imaging - [facility] [address] [phone] 05/15/2024 15:00 EST Telemedicine [facility] Gastroenterology - [address] 114461 Madhu Park MD PhD [address] [place] [address] 5 [place] [phone] 12/10/2024 11:30 EDT Office Visit [facility] Surgical Oncology - [address] [phone] [facility] PAPrabhaC [address] [place] [address], [facility] 2 [place] [phone] documented as of this encounter Visit Diagnoses Not on filedocumented in this encounter Care Teams Chuck Splitter Relationship Specialty Start Date End Date Indy Champion MD [address] [place] [address] PCP - General 04/15/15 03/20/24 documented as of this encounter
--- OUTSIDE RECORDS SUMMARY | 2024-03-27 20:10 | XMS_ITS | Encounter Summary ---
Author Organization [facility] Address [address] [place] [address] Care Team Providers Care Tech Intern Name Role Phone Indy Champion MD Primary Care Provider Reason for Visit * Reason Comments Follow-up Encounter Details Date Type Department Care Team (Late st Contact Info) Description 04/15/2015 9:00 EDT Office Visit [facility] Surgical Oncology - [address] [phone] Indy Stein PA-C [address] [place] [address], Level 5 [place] [phone] Diffuse cystic mastopathy, unspecified laterality [...] Time Taken Comments Blood Pressure 123/63 04/15/2015 09 EDT Pulse 53 04/15/2015 09 EDT Temperature [...] HPI DIVISION OF SURGICAL ONCOLOGY - [facility] FOLLOW-UP/PROGRESS NOTE - 04/15/2015 PROBLEM: 1. Breast density and fibrocystic breast changes. SUBJECTIVE: Sandhya Lomas is a 54 y.o. old female who is here today for her high-risk screening breast exam. Sandhya established care in the Breast [facility] due to diffuse cystic mastopathy. She [...] been stable and she is moderately active. 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 Menarche at age 14. First delivery at age 36. Perimenopausal with cycles every 5 months or so. SOCIAL HISTORY: Sandhya is and lives in [place]. She has two sons. 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 FAMILY HISTORY: No family history of [...] Mohs surgery 11/2009 basal cell carcinoma, right restoration ??? section 1995, 1997 ??? Abdomen surgery [...] prepared with speech recognition software or keyboard lead database administrator techniques. Minor irregularities or keyboarding misprints may be present. Sandhya was seen today for follow-up. Diagnoses and associated orders for this visit: Diffuse cystic mastopathy, unspecified laterality Inconclusive mammogram due to dense breasts documented in this encounter Plan of Treatment Upcoming Encounters Date Type Department Care Team (Late st Contact Info) Description 04/23/2024 9:30 EDT Appointment [facility] Endoscopy - [address] [address] Marcellus Walsh MD 111 [facility] 5 [place] [phone] 05/01/2024 13:30 EDT Appointment [facility] Breast Imaging - [facility] 1 [place], [place] 775951 05/15/2024 15:00 EST Telemedicine [facility] Gastroenterology - [address] 015271 Madhu Park MD PhD 111 [facility] 5 [place] [phone] 12/10/2024 11:30 EDT Office Visit [facility] Surgical Oncology - [address] [phone] [facility] PAPrabhaC 111 [facility] 2 [place] [phone] documented as of this encounter Visit Diagnoses Diagnosis Diffuse cystic mastopathy, unspecified laterality- Primary Inconclusive mammogram due to dense breasts Inconclusive mammogram documented in this encounter Care Teams Tech Intern Relationship Specialty Start Date End Date Indy Champion MD 7 [place], [place] 8[address]31 PCP - General 04/15/15 03/20/24 documented as of this encounter
--- OUTSIDE RECORDS SUMMARY | 2024-03-27 20:10 | XMS_ITS | Encounter Summary ---
Author Organization [facility] Address [address] [place] [address] Care Team Providers Care Boot Liner Maker Name Role Phone Indy Champion MD Primary Care Provider Reason for Visit * Reason Comments Follow-up S/p Mohs of BCC on t he right nasal tip with bilobed flap 07/18/15. Encounter Details Date Type Department Care Team (Late st Contact Info) Description 03/10/2016 13:45 EDT Office Visit [facility] Dermatology 3rd Floor [address] [address] Frederick Romero MD [address] [place] [address], Level 5 [place] [address] Status post Mohs surgery for [...] 03/10/2016 13:58 * Radha Arellano - 03/10/2016 4128 EDT Review of Systems Constitutional: Negative for [...] disturbance. The patient is not nervous/anxious. Radha Arellaon Form Coverer, Dermatology 13:48 03/10/2016 documented in this encounter Plan of Treatment Upcoming Encounters Date Type Department Care Team (Late st Contact Info) Description 04/23/2024 9:30 EDT Appointment [facility] Endoscopy - [address] 907141 Marcellus Walhs MD [address] [place] [address], Level 5 [place] [phone] 05/01/2024 13:30 EDT Appointment [facility] Breast Imaging - [address] [address] 05/15/2024 15:00 EST Telemedicine [facility] Gastroenterology - [address] [address] Madhu Park MD PhD [address] [place] [address], Level 5 [place] [phone] 12/10/2024 11:30 EDT Office Visit [facility] Surgical Oncology - [facility] [address] [place], [place] [phone] [facility] PA-C 111 [facility] 2 [place] [phone] documented as of this encounter Visit Diagnoses Diagnosis Status post Mohs surgery for basal cell carcinoma- Primary Other postprocedural status documented in this encounter Care Teams Boot Liner Maker Relationship Specialty Start Date End Date Indy Champion MD 7 [place], [place] 744181 PCP - General 04/15/15 03/20/24 documented as of this encounter
--- OUTSIDE RECORDS SUMMARY | 2024-03-27 20:10 | XMS_ITS | Encounter Summary ---
Author Organization [facility] Address [address] [place] [address] Care Team Providers Care Endo Tech Name Role Phone Indy Champion MD Primary Care Provider Reason for Visit * Reason Onset Date Comments Appointment Related 09/14/2019 Encounter Details Date Type Department Care Team (Late st Contact Info) Description 09/14/[facility] - [address] [address] Viktoria Herr Appointment Related Social History Tobacco [...] Telephone Encounter - Viktoria Herr - 09/14/2019 0901 EST Reached patient and she is now scheduled for breast imaging on 12/19/19 documented in this encounter Plan of Treatment Upcoming Encounters Date Type Department Care Team (Late st Contact Info) Description 04/23/2024 9:30 EDT Appointment [facility] Endoscopy - [address] [phone] Marcellus Walsh MD [address] [place] [address] 5 [place] [phone] 05/01/2024 13:30 EDT Appointment [facility] Breast Imaging - [address] [phone] 05/15/2024 15:00 EST Telemedicine [facility] Gastroenterology - [address] [phone] Madhu Park MD PhD [address] [place] [address] 5 [place] [phone] 12/10/2024 11:30 EDT Office Visit [facility] Surgical Oncology - [address] [phone] [facility] PA-C [address] [place] [address], [facility] 2 [place] [phone] documented as of this encounter Visit Diagnoses Not on filedocumented in this encounter Care Teams Endo Tech Relationship Specialty Start Date End Date Indy Champion MD [address] [place] [address] [id number] PCP - General 04/15/15 03/20/24 documented as of this encounter
--- OUTSIDE RECORDS SUMMARY | 2024-03-27 20:10 | XMS_ITS | Encounter Summary ---
Author Organization [facility] Address [address] [place] [address] Care Team Providers Care Economic Development Manager Name Role Phone Indy Champion MD Primary Care Provider Reason for Visit * Reason Comments Basal Cell Carcinoma right yazidism * Consult (Routine) - Closed Specialty Diagnoses / Procedures [facility] To Contact Dermatology Diagnoses Basal cell carcinoma of skin, unspecified Tam Pal, PAPrabhaC [address] [phone] Frederick Romero MD [address] [place] [phone] Referral ID Status Reason Start Date Expiration Date Visits Re quested Visits Authorized [id number] Closed 1 1 Encounter Details Date Type Department Care Team (Late st Contact Info) Description 04/02/2019 13:00 EDT Office Visit [facility] Dermatology 5th [address] [address] Frederick Romero MD [address] [place] [phone] Basal cell carcinoma of right yazidism region (Primary Dx) Discharge Disposition: Auto Discharge [...] discomfort. Tylenol, taken as directed by the boss miner, will help relieve pain. If Tylenol does [...] 1 Basal cell carcinoma (BCC) Location right yazidism Size Preop (cm) 0.7 cm x 0.6 [...] presents with ??? Basal Cell Carcinoma right yazidism Subjective: Sandhya Lomas is a 58 y.o. year old female who is referred to me for evaluation and treatment ofa skin cancer on the right yazidism by Tam Pal PA-C. The patient is [...] and pink, papule located on the right yazidism. ?? Examination of the lymph nodes was not performed today. Pathology: Nodular basal cell carcinoma, extending to margins Assessment & Plan: Basal cell carcinoma (BCC) of the right yazidism ?? Ms. Lomas and I discussed the [...] April 02, 2019 Surgeon: Frederick Romero MD Design Manager: Daija Reddy PA-C Case #: [id number] Mohs AUC Score: 8 (APPROPRIATE) Preoperative Diagnosis: Basal cell carcinoma (BCC) Preoperative Procedure: Mohs micrographic surgery Location of Lesion: right yazidism Preoperative Lesion Size: 0.7 cm x 0.6 [...] handed personally by the doctor to the traffic signal technician for frozen sectioning. The tissue was [...] INFORMATION: Sandhya Lomas SURGEON: Frederick Romero MD FINANCIAL ADMINISTRATOR: Daija Reddy PA-C PREOPERATIVE DIAGNOSIS: Defect following microscopically controlled excision of basal cell carcinoma (BCC) PREOPERATIVE PROCEDURE: Intermediate Linear Closure LOCATION of WOUND: right yazidism WOUND DIMENSIONS: 1.3 cm x 0.8 cm [...] Barriers: None Outcomes: independent Signature: Radha Arellano Loan Auditor, Dermatology 13:07 04/02/2019 documented in this encounter Plan of Treatment Upcoming Encounters Date Type Department Care Team (Late st Contact Info) Description 04/23/2024 9:30 EDT Appointment [facility] Endoscopy - [address] [address] Marcellus Walsh MD [address] [place] [address], Level 5 [place] [phone] 05/01/2024 13:30 EDT Appointment [facility] Breast [facility] - [facility] [place] 1 [place], [place] [id number] 05/15/2024 15:00 EST Telemedicine [facility] Gastroenterology - [address] 727411 Madhu Park MD PhD 111 [facility], [facility] 5 [place] [phone] 12/10/2024 11:30 EDT Office Visit [facility] Surgical Oncology - [address] [phone] Magnolia Blood PA-C 111 [facility], [facility] 2 [place] [phone] documented as of this encounter Procedures Procedure Name Priority Date/Time Associated Diagnosis Comments PROCEDURE REPORTS - SCANNED 04/07/2019 2:17 EDT documented in this encounter Results * PROCEDURE REPORTS - SCANNED (04/07/2019 2:17 EDT) 04/07/2019 2:17 EDT Scan 2 Soda Dry House Operator PROCEDURE/MINOR TERRIE GICAL ORDERABLES documented in this encounter Visit Diagnoses Diagnosis Basal cell carcinoma of right yazidism region- Primary Basal cell carcinoma of skin of other and unspecified parts of face documented in this encounter Historical Medications * This list may reflect changes made after this encounter. Medication Sig Dispensed Refills Start Date End Date NIACINAMIDE ORAL Take by mouth. added in this encounter Care Teams Economic Development Manager Relationship Specialty Start Date End Date Indy Champion MD [address] [place] [address] PCP - General 04/15/15 03/20/24 documented as of this encounter
--- OUTSIDE RECORDS SUMMARY | 2024-03-27 20:10 | XMS_ITS | Encounter Summary ---
Author Organization [facility] Address [address] [place] [address] Care Team Providers Care Foot Caster Name Role Phone Indy Champion MD Primary Care Provider Encounter Details Date Type Department Care Team (Late st Contact Info) Description 05/16/2019 Results Only Imaging [facility] Surgical Oncology - [address] [address] Magnolia Blood PA-C 111 [facility], Level 2 [place] [phone] Social History Tobacco Use Types Packs/Day Years [...] EDT Appointment [facility] Endoscopy - [address] 416[address] Marcellus Walsh MD [address] [place] [address] 5 [place] [phone] 05/01/2024 13:30 EDT Appointment [facility] Breast Imaging - [address] [id number] 05/15/2024 15:00 EST Telemedicine [facility] Gastroenterology - [address] [phone] Madhu Park MD PhD [address] [place] [address] 5 [place] [phone] 12/10/2024 11:30 EDT Office Visit [facility] Surgical Oncology - [address] [phone] Magnolia Blood PA-C [address] [place] [address], [facility] 2 [place] [phone] documented as of this encounter Procedures Procedure [...] on filedocumented in this encounter Care Teams Foot Caster Relationship Specialty Start Date End Date Indy Champion MD 7 [place] [address] PCP - General 04/15/15 03/20/24 documented as of this encounter
--- OUTSIDE RECORDS SUMMARY | 2024-03-27 20:10 | XMS_ITS | Encounter Summary ---
Author Organization [facility] Address [address] [place] [address] Care Team Providers Care Teaching Fellow Name Role Phone Indy Champion MD Primary Care Provider Reason for Visit * Reason Onset Date Comments Mohs Consult 06/20/2015 Encounter Details Date Type Department Care Team (Late st Contact Info) Description 06/20/2015 Telephone [facility] Dermatology 3rd Floor [address] [address] Adán Hwang MD [address] [place] [address], Level 5 [place] [phone] Mohs Consult Social History Tobacco [...] Info) Description 04/23/2024 9:30 EDT Appointment [facility] Endoscopy - [address] [address] Marcellus Walsh MD 111 [facility], [facility] 5 [place] [phone] 05/01/2024 13:30 EDT Appointment [facility] Breast Imaging - [address] [id number] 05/15/2024 15:00 EST Telemedicine [facility] Gastroenterology - [address] 898531 Madhu Park MD PhD [address] [place] [address] 5 [place] [phone] 12/10/2024 11:30 EDT Office Visit [facility] Surgical Oncology - [address] [phone] Magnolia Blood, PA-C [address] [place] [address], Level 2 [place] [phone] documented as of this encounter Visit Diagnoses Not on filedocumented in this encounter Care Teams Teaching Fellow Relationship Specialty Start Date End Date Indy Champion MD 7 [place] [address] PCP - General 04/15/15 03/20/24 documented as of this encounter
--- OUTSIDE RECORDS SUMMARY | 2024-03-27 20:10 | XMS_ITS | Encounter Summary ---
Author Organization [facility] Address [address] [place] [address] Care Team Providers Care Driller And Broacher Name Role Phone Indy Champion MD Primary Care Provider Reason for Visit * Reason Comments Follow-up Encounter Details Date Type Department Care Team (Late st Contact Info) Description 04/25/2018 9:00 EDT Office Visit [facility] Surgical Oncology - [address] [phone] Magnolia Blood PAPrabhaC [address] [place] [address], Level 2 [place] [phone] Diffuse cystic mastopathy of both [...] very active and enjoys doing yoga regularly. 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 . First delivery at age 36. SOCIAL HISTORY: , lives in [place]. Both of her children are in college. [...] and Symptoms/Comments: N60.12-Diffuse cystic mastopathy of left kkbwch-MAP-06 N60.11-Diffuse cystic mastopathy of right qaxnpv-PUY-47; N60.11-Diffuse cystic mastopathy of right zjmjuj-TST-04 N60.12-Diffuse cystic mastopathy of left cepaiu-YGK-42; High risk, diffuse cystic mastopathy, dense breast [...] October,. Overall assessment: BI-RADS 2: Benign. Assessment: Snadhya continues to follow in our clinic due [...] Patient can see her PCP or her STACKER AND SORTER OPERATOR for an additional clinical breast exam in [...] Contact Info) Description 04/23/2024 9:30 EDT Appointment [facility] Endoscopy - [address] [phone] Marcellus Walsh MD [address] [place] [address] 5 [place] [phone] 05/01/2024 13:30 EDT Appointment [facility] Breast Imaging - [address] [phone] 05/15/2024 15:00 EST Telemedicine [facility] Gastroenterology - [address] 970741 Madhu Park MD PhD [address] [place] [address] 5 [place] [phone] 12/10/2024 11:30 EDT Office Visit [facility] Surgical Oncology - [address] [phone] Magnolia Blood PA-C [address] [place] [address], [facility] 2 [place] [phone] documented as of this encounter Procedures Procedure Name Priority Date/Time Associated Diagnosis Comments ORDERS - SCANNED 08/22/2018 7:05 EST documented in this encounter Results * ORDERS - SCANNED (08/22/2018 7:05 EST) 08/22/2018 7:05 EST Scan 2 Service Center Appraiser ADMISSION ORDERABLE S documented in this encounter Visit Diagnoses Diagnosis Diffuse cystic mastopathy of both breasts- Primary documented in this encounter Care Teams Driller And Broacher Relationship Specialty Start Date End Date Indy Champion MD 7 [place] [address] PCP - General 04/15/15 03/20/24 documented as of this encounter
--- OUTSIDE RECORDS SUMMARY | 2024-03-27 20:10 | XMS_ITS | Encounter Summary ---
Author Organization [facility] Address [address] [place] [address] Care Team Providers Care Camp Cook Name Role Phone Indy Champion MD Primary Care Provider Encounter Details Date Type Department Care Team (Late st Contact Info) Description 11/03/2016 Results Only Imaging [facility] Surgical Oncology - [address] [phone] Indy Stein PA-C 111 [facility], Level 5 [place] [address] Social History Tobacco Use Types [...] Description 04/23/2024 9:30 EDT Appointment [facility] Endoscopy - [address] [address] Marcellus Walsh MD [address] [place] [phone] 05/01/2024 13:30 EDT Appointment [facility] Breast Imaging - [address] [phone] 05/15/2024 15:00 EST Telemedicine [facility] Gastroenterology - [address] [phone] Madhu Park MD PhD [address] [place] [phone] 12/10/2024 11:30 EDT Office Visit [facility] Surgical Oncology - [address] [phone] Magnolia Blood PA-C [address] [place] [address], [facility] 2 [place] [phone] documented as of this encounter Procedures Procedure [...] as well due to dense breasts. A international account representative of the Radiology Department will call [...] The patient was told that our biopsy dialysis patient care technician will notify her of the results via phone in 3-5 business days. Impression: Successful ultrasound-guided core biopsy. Portions of this document may have been prepared with speech recognition software or keyboard general manager oracle data cloud techniques. Minor irregularities or keyboarding misprints may [...] as well due to dense breasts. A international account representative of the Radiology Department will call [...] The patient was told that our biopsy dialysis patient care technician will notify her of the results via phone in 3-5 business days. Impression: Successful ultrasound-guided core biopsy. Portions of this document may have been prepared with speech recognition software or keyboard general manager oracle data cloud techniques. Minor irregularities or keyboarding misprints may be present. Indy GREWAL-Mariah IMG MAMMOGRAPHY ORDERABLES * RAD US BREAST BIOPSY [...] as well due to dense breasts. A international account representative of the Radiology Department will call [...] The patient was told that our biopsy dialysis patient care technician will notify her of the results via phone in 3-5 business days. Impression: Successful ultrasound-guided core biopsy. Portions of this document may have been prepared with speech recognition software or keyboard general manager oracle data cloud techniques. Minor irregularities or keyboarding misprints may [...] as well due to dense breasts. A international account representative of the Radiology Department will call [...] The patient was told that our biopsy dialysis patient care technician will notify her of the results via phone in 3-5 business days. Impression: Successful ultrasound-guided core biopsy. Portions of this document may have been prepared with speech recognition software or keyboard general manager oracle data cloud techniques. Minor irregularities or keyboarding misprints may be present. Indy Stein PA-C IM[employer]ne US ORDERABL ES documented in this encounter Visit Diagnoses Not on filedocumented in this encounter Care Teams Camp Cook Relationship Specialty Start Date End Date Indy Champion MD 7 [place] [address] PCP - General 04/15/15 03/20/24 documented as of this encounter
--- OUTSIDE RECORDS SUMMARY | 2024-03-27 20:10 | XMS_ITS | Encounter Summary ---
Author Organization [facility] Address [address] [place] [address] Care Team Providers Care [employer] Principal Name Role Phone Indy Champion MD Primary Care Provider Encounter Details Date Type Department Care Team (Late st Contact Info) Description 04/25/2018 Results Only Imaging [facility] Surgical Oncology - [address] [phone] Indy Stein PA-C 111 [facility], Level [address] [place] [address] Social History Tobacco Use Types [...] Contact Info) Description 04/23/2024 9:30 EDT Appointment [facility] Endoscopy - [address] [phone] Marcellus Walsh MD [address] [place] [address] 5 [place] [phone] 05/01/2024 13:30 EDT Appointment [facility] Breast Imaging - [address] [phone] 05/15/2024 15:00 EST Telemedicine [facility] Gastroenterology - [address] [phone] Madhu Park MD PhD [address] [place] [address] 5 [place] [phone] 12/10/2024 11:30 EDT Office Visit [facility] Surgical Oncology - [address] [phone] Magnolia Blood PA-C [address] [place] [address], [facility] 2 [place] [phone] documented as of this encounter Procedures Procedure [...] on filedocumented in this encounter Care Teams K [employer] School Principal Relationship Specialty Start Date End Date Indy Champion MD [address] [place] [address] PCP - General 04/15/15 03/20/24 documented as of this encounter
--- OUTSIDE RECORDS SUMMARY | 2024-03-27 20:10 | XMS_ITS | Encounter Summary ---
Author Organization [facility] Address [address] [place] [address] Care Team Providers Care Greeter Guest Services Name Role Phone Indy Champion MD Primary Care Provider Encounter Details Date Type Department Care Team (Late st Contact Info) Description 04/20/2017 8:19 EDT - 04/20/2017 23:59 EDT Hospital Encounter [facility] [place] [address] [place] [address] Nurys Meza MD Holbrook, Kimberly A, PA-C 111 [facility], Level 5 [place] [address] Discharge Disposition: Home or Self [...] Contact Info) Description 04/23/2024 9:30 EDT Appointment [facility] Endoscopy - [address] 150121 Marcellus Walsh MD [address] [place] [phone] 05/01/2024 13:30 EDT Appointment [facility] Breast Imaging - [address] [id number] 05/15/2024 15:00 EST Telemedicine [facility] Gastroenterology - [address] 680881 Madhu Park MD PhD [address] [place] [phone] 12/10/2024 11:30 EDT Office Visit [facility] Surgical Oncology - [address] 715[address] Magnolia Blood PAPrabhaC [address] [place] [address], Level [address] [place] [phone] documented as of this encounter Visit Diagnoses Not on filedocumented in this encounter Care Teams Greeter Guest Services Relationship Specialty Start Date End Date Indy Champion MD [address] [place], [place] [address] PCP - General 04/15/15 03/20/24 documented as of this encounter
--- OUTSIDE RECORDS SUMMARY | 2024-03-27 20:10 | XMS_ITS | Encounter Summary ---
Author Organization [facility] Address [address] [place] [address] Care Team Providers Care Airframe And Power Plant Mechanic Name Role Phone Indy Champion MD Primary Care Provider Encounter Details Date Type Department Care Team (Latest Contact Info) Description 06/11/2015 16:14 EST - 06/11/2015 16:15 [facility] Hospital Encounter [address] [address] Peri Cordero MD [address] [place] [address] [address] [place] [phone] Discharge Disposition: Home or Self Care Social [...] Contact Info) Description 04/23/2024 9:30 EDT Appointment [facility] Endoscopy - [address] [address] Marcellus Walsh MD 111 [facility], Level 5 [place] [phone] 05/01/2024 13:30 EDT Appointment [facility] Breast Imaging - [address] [address] 05/15/2024 15:00 EST Telemedicine [facility] Gastroenterology - [address] 937261 Madhu Park MD PhD 111 [facility], [facility] 5 [place] [phone] 12/10/2024 11:30 EDT Office Visit [facility] Surgical Oncology - [address] [phone] Magnolia Blood PA-C 111 [facility], [facility] 2 [place] [phone] documented as of this encounter Visit Diagnoses Not on filedocumented in this encounter Care Teams Airframe And Power Plant Mechanic Relationship Specialty Start Date End Date Indy Champion MD 7 [place] [address] PCP - General 04/15/15 03/20/24 documented as of this encounter
--- OUTSIDE RECORDS SUMMARY | 2024-03-27 20:10 | XMS_ITS | Encounter Summary ---
Author Organization [facility] Address [address] [place] [address] Care Team Providers Care Survey Instrument Operator Name Role Phone Indy Champion MD Primary Care Provider Encounter Details Date Type Department Care Team (Late st Contact Info) Description 04/20/2017 Results Only Imaging [facility] Surgical Oncology - [address] [phone] Indy Stein PA-C 111 [facility], Level 5 [place] [phone] Social History Tobacco Use Types [...] Contact Info) Description 04/23/2024 9:30 EDT Appointment [facility] Endoscopy - [address] [phone] Marcellus Walsh MD [address] [place] [phone] 05/01/2024 13:30 EDT Appointment [facility] Breast Imaging - [address] [phone] 05/15/2024 15:00 EST Telemedicine [facility] Gastroenterology - [address] [phone] Madhu Park MD PhD [address] [place] [address] 5 [place] [phone] 12/10/2024 11:30 EDT Office Visit [facility] Surgical Oncology - [address] [phone] Magnolia Blood PA-C [address] [place] [address], [facility] 2 [place] [phone] documented as of this encounter Procedures Procedure [...] imaging (Category 0) at this time. Indy A Sarita PA-C IMG MAMMOGRAPHY ORDERABLES documented in this encounter Visit Diagnoses Not on filedocumented in this encounter Care Teams Survey Instrument Operator Relationship Specialty Start Date End Date Indy Champion MD [address] [place] [address] PCP - General 04/15/15 03/20/24 documented as of this encounter
--- OUTSIDE RECORDS SUMMARY | 2024-03-27 20:10 | XMS_ITS | Encounter Summary ---
Author Organization [facility] Address [address] [place] [address] Care Team Providers Care Director Employee Communications Name Role Phone Indy Champion MD Primary Care Provider Reason for Visit * Reason Onset Date Comments Follow-up 04/25/2018 HR U/S Encounter Details Date Type Department Care Team (Late st Contact Info) Description 04/25/2018 Orders Only [facility] Surgical Oncology - [address] [address] [facility], PAPrabhaC 111 [facility], Level 2 [place] [address] Diffuse cystic mastopathy of right [...] Contact Info) Description 04/23/2024 9:30 EDT Appointment [facility] Endoscopy - [address] [phone] Marcellus Walsh MD [address] [place] [address] 5 [place] [phone] 05/01/2024 13:30 EDT Appointment [facility] Breast Imaging - [address] [phone] 05/15/2024 15:00 EST Telemedicine [facility] Gastroenterology - [address] [phone] Madhu Park MD PhD [address] [place] [address] 5 [place] [phone] 12/10/2024 11:30 EDT Office Visit [facility] Surgical Oncology - [address] [phone] [facility] PA-C [address] [place] [address], [facility] 2 [place] [phone] documented as of this encounter Procedures Procedure [...] Clinical History/Comments: N60.11-Diffuse cystic mastopathy of right astene-IYU-42 N60.12-Diffuse cystic mastopathy of left xvfxoq-VMM-93; High risk screening due to increased breast density on mammogram Comparisons: RAD ABUS SCREENING BILAT ??11/22/2018 2:37 PM Clinical History/Comments: N60.11-Diffuse cystic mastopathy of right bybtuk-CIJ-55 N60.12-Diffuse cystic mastopathy of left fozlor-PSA-00; High risk screening due to increased breast density on mammogram Comparisons: Mammograms dated April 2018, April 2017, October 2016, April 2016, April 2015, April 2013, April 2012, March 2011. Screening whole breast ultrasound dated October 10, 2014, October 15, 2015, November 03, 2016, November 02, 2017. Technique: 3-D automated breast ultrasound was performed using the 6-15 MHz Social Strategy 1 [employer] ABUS device. All 4 quadrants and the [...] ultrasound was performed using the 6-15 MHz Social Strategy 1 [employer] ABUS device. All 4 quadrants and [...] Clinical History/Comments: N60.11-Diffuse cystic mastopathy of right iyrsmh-HGR-70 N60.12-Diffuse cystic mastopathy of left pjfxdm-ZVZ-92; High risk screening due to increased breast density on mammogram Comparisons: RAD ABUS SCREENING BILAT 11/22/2018 2:37 PM Clinical History/Comments: N60.11-Diffuse cystic mastopathy of right ikkzux-LWG-21 N60.12-Diffuse cystic mastopathy of left xytooh-FDY-31; High risk screening due to increased breast density on mammogram Comparisons: Mammograms dated April 2018, April 2017, October 2016, April 2016, April 2015, April 2013, April 2012, March 2011. Screening whole breast ultrasound dated October 10, 2014, October 15, 2015, November 03, 2016, November 02, 2017. Technique: 3-D automated breast ultrasound was performed using the 6-15 MHz Social Strategy 1 [employer] ABUS device. All 4 quadrants and [...] ultrasound was performed using the 6-15 MHz [employer] ABUS device. All 4 quadrants and the [...] mastopathy documented in this encounter Care Teams Director Employee Communications Relationship Specialty Start Date End Date Indy Champion MD [address] [place] [address] PCP - General 04/15/15 03/20/24 documented as of this encounter
--- OUTSIDE RECORDS SUMMARY | 2024-03-27 20:10 | XMS_ITS | Encounter Summary ---
Author Organization [facility] Address [address] [place] [address] Care Team Providers Care Small Boat Engineer Name Role Phone Indy Champion MD Primary Care Provider Encounter Details Date Type Department Care Team (Late st Contact Info) Description 04/25/2018 7:48 EDT - 04/25/2018 23:59 EDT Hospital Encounter [facility] [address] [place] [address] Indy [place] [address] Discharge Disposition: Auto Discharge Social History Tobacco [...] Info) Description 04/23/2024 9:30 EDT Appointment [facility] Endoscopy - [address] [phone] Marcellus Walsh MD [address] [place] [phone] 05/01/2024 13:30 EDT Appointment [facility] Breast Imaging - [address] [phone] 05/15/2024 15:00 EST Telemedicine [facility] Gastroenterology - [address] 078891 Madhu Park MD PhD [address] [place] [phone] 12/10/2024 11:30 EDT Office Visit [facility] Surgical Oncology - [address] [phone] [facility] PAPrabhaC [address] [place] [address], [facility] 2 [place] [phone] documented as of this encounter Visit Diagnoses Not on filedocumented in this encounter Care Teams Small Boat Engineer Relationship Specialty Start Date End Date Indy Champion MD [address] [place] [address] PCP - General 04/15/15 03/20/24 documented as of this encounter
--- OUTSIDE RECORDS SUMMARY | 2024-03-27 20:10 | XMS_ITS | Encounter Summary ---
Author Organization [facility] Address [address] [place] [address] Care Team Providers Care Laser Beam Cutter Name Role Phone Indy Champion MD Primary Care Provider Encounter Details Date Type Department Care Team (Late st Contact Info) Description 11/22/2018 13:52 EDT - 11/22/2018 23:59 EDT Hospital Encounter [address] [address] [facility] PAJacques 111 [facility] 2 [place] [phone] Discharge Disposition: Auto Discharge Social History Tobacco [...] Contact Info) Description 04/23/2024 9:30 EDT Appointment [facility] Endoscopy - [address] [phone] Marcellus Walsh MD [address] [place] [phone] 05/01/2024 13:30 EDT Appointment [facility] Breast Imaging - [address] [phone] 05/15/2024 15:00 EST Telemedicine [facility] Gastroenterology - [address] [address] Madhu Park MD PhD [address] [place] [phone] 12/10/2024 11:30 EDT Office Visit [facility] Surgical Oncology - [address] [phone] [facility], PA-C [address] [place] [address], [facility] 2 [place] [phone] documented as of this encounter Visit Diagnoses Not on filedocumented in this encounter Care Teams Laser Beam Cutter Relationship Specialty Start Date End Date Indy Champion MD [address] [place] [address] PCP - General 04/15/15 03/20/24 documented as of this encounter
--- OUTSIDE RECORDS SUMMARY | 2024-03-27 20:10 | XMS_ITS | Encounter Summary ---
Author Organization [facility] Address [address] [place] [address] Care Team Providers Care Note Taker Name Role Phone Indy Champion MD Primary Care Provider Reason for Referral * Radiology Services (Routine) - Closed Specialty Diagnoses / Procedures [facility] Referred To Contact Diagnoses Diffuse cystic mastopathy of right breast Diffuse cystic mastopathy of left breast Procedures RAD US BREAST SCREENING ONLY BILATERAL Indy Stein PA-C [address] [place] [phone] Referral ID Status Reason Start Date Expiration Date Visits Re quested Visits Authorized [id number] Closed 04/21/2016 1 1 Reason for Visit * Reason Onset Date Comments Follow-up 04/21/2016 ULTRASOUND ORDER Encounter Details Date Type Department Care Team (Late st Contact Info) Description 04/21/2016 Orders Only [facility] Surgical Oncology - [address] [phone] Indy Stein PA-C [address] [place] [phone] Diffuse cystic mastopathy of right breast [...] Contact Info) Description 04/23/2024 9:30 EDT Appointment [facility] Endoscopy - [address] [phone] Marcellus Walsh MD [address] [place] [phone] 05/01/2024 13:30 EDT Appointment [facility] Breast Imaging - [address] [phone] 05/15/2024 15:00 EST Telemedicine [facility] Gastroenterology - [address] [phone] Madhu Park MD PhD [address] [place] [phone] 12/10/2024 11:30 EDT Office Visit [facility] Surgical Oncology - [address] [phone] [facility], PA-C [address] [place] [address], [facility] 2 [place] [phone] documented as of this encounter Procedures Procedure [...] and Symptoms/Comments: N60.11-Diffuse cystic mastopathy of right clipzc-QMX-54 N60.12-Diffuse cystic mastopathy of left besfet-XGK-88; High risk, diffuse cystic mastopathy, dense breast, [...] with speech recognition software or keyboard data management techniques. Minor irregularities or keyboarding misprints may be present. Procedure Note Carissa Kendall MD - 11/03/2016 RAD US BREAST SCREENING ONLY BILATERAL 11/03/2016 9:21 AM Signs and Symptoms/Comments: N60.11-Diffuse cystic mastopathy of right vnqcbf-AYK-96 N60.12-Diffuse cystic mastopathy of left xxhbwt-WWM-40; High risk, diffuse cystic mastopathy, dense breast, [...] with speech recognition software or keyboard data management techniques. Minor irregularities or keyboarding misprints may be present. Indy Stein PA-C IMG US ORDERABL ES documented in this encounter Visit Diagnoses Diagnosis Diffuse cystic mastopathy of right breast- Primary Diffuse cystic mastopathy Diffuse cystic mastopathy of left breast Diffuse cystic mastopathy documented in this encounter Care Teams Note Taker Relationship Specialty Start Date End Date Indy Champion MD [address] [place] [address] PCP - General 04/15/15 03/20/24 documented as of this encounter
--- OUTSIDE RECORDS SUMMARY | 2024-03-27 20:10 | XMS_ITS | Encounter Summary ---
Author Organization [facility] Address [address] [place] [address] Care Team Providers Care Stroboscope Operator Name Role Phone Indy Champion MD Primary Care Provider Reason for Visit * Reason Onset Date Comments Provider Referred 01/18/2019 Encounter Details Date Type Department Care Team (Late st Contact Info) Description 01/18/2019 Telephone [facility] Dermatology 5th [address] [address] Frederick Romero MD [address] [place] [address], Level 5 [place] [address] Provider Referred Social History Tobacco [...] 01/18/2019 1558 EDT Reason for referral: Right [facility] Referring Provider: URI Holley Notes and pathology to follow Patient has been in office for a mohs procedure before, last seen in clinic on 03.10.19 for a followup with Dr. Romero documented in this encounter Plan of Treatment Upcoming Encounters Date Type Department Care Team (Late st Contact Info) Description 04/23/2024 9:30 EDT Appointment [facility] Endoscopy - [address] [phone] Marcellus Walsh MD [address] [place] [phone] 05/01/2024 13:30 EDT Appointment [facility] Breast Imaging - [address] [phone] 05/15/2024 15:00 EST Telemedicine [facility] Gastroenterology - [address] [phone] Madhu Park MD PhD [address] [phone] 12/10/2024 11:30 EDT Office Visit [facility] Surgical Oncology - [facility] [address] [place], [place] 130761 [facility] PA-C [address] [facility], Level [address] [place] [phone] documented as of this encounter Visit Diagnoses Not on filedocumented in this encounter Care Teams Stroboscope Operator Relationship Specialty Start Date End Date Indy Champion MD [address] [place], [place] [address]781 PCP - General 04/15/15 03/20/24 documented as of this encounter
--- OUTSIDE RECORDS SUMMARY | 2024-03-27 20:10 | XMS_ITS | Encounter Summary ---
Author Organization [facility] Address [address] [place] [address] Care Team Providers Care Cook Fry Name Role Phone Indy Champion MD Primary Care Provider Encounter Details Date Type Department Care Team (Latest Contact Info) Description 04/16/2016 10:20 EDT - 04/16/2016 23:59 EDT Hospital Encounter [facility] [address] [place] [address] Nurys Meza MD Discharge Disposition: Home or [...] Code Departure Means Destination Home or Self Residential documented in this encounter Plan of Treatment Upcoming Encounters Date Type Department Care Team (Late st Contact Info) Description 04/23/2024 9:30 EDT Appointment [facility] Endoscopy - [address] [phone] Marcellus Walsh MD [address] [place] [phone] 05/01/2024 13:30 EDT Appointment [facility] Breast Imaging - [address] [phone] 05/15/2024 15:00 EST Telemedicine [facility] Gastroenterology - [address] [phone] Madhu Park MD PhD [address] [place] [phone] 12/10/2024 11:30 EDT Office Visit [facility] Surgical Oncology - [address] [phone] [facility] PA-C [address] [place] [address], [facility] 2 [place] [phone] documented as of this encounter Visit Diagnoses Not on filedocumented in this encounter Care Teams Cook Fry Relationship Specialty Start Date End Date Indy Champion MD [address] [place] [address] PCP - General 04/15/15 03/20/24 documented as of this encounter
--- OUTSIDE RECORDS SUMMARY | 2024-03-27 20:10 | XMS_ITS | Encounter Summary ---
Author Organization [facility] Address [address] [place] [address] Care Team Providers Care Factory Focus Technician Name Role Phone Indy Champion MD Primary Care Provider Reason for Visit * Reason Comments Basal Cell Carcinoma Nasal tip Encounter Details Date Type Department Care Team (Late st Contact Info) Description 07/18/2015 8:30 EST Office Visit [facility] Dermatology 5th Floor [address] [address] Frederick Romero MD [address] [place] [address], Level 5 [place] [phone] Basal cell carcinoma of nasal [...] Reading Time Taken Comments Blood Pressure 102/69 07/18/2015827 EST Pulse 64 07/18/2015 0828 EST Temperature [...] Extra-Strength Tylenol, taken as directed by the concert or lecture hall manager, will help relieve pain. If the pain [...] July 18, 2015 Surgeon: Frederick Romero MD Comic Writer: Alexi Hall PA-C Case #: [id number] Preoperative [...] mapped and then handed personally to the biotechnician for frozen sectioning. The tissue was embedded [...] INFORMATION: Sandhya Lomas SURGEON: Frederick Romero MD COUNSELOR AIDE: Alexi Hall PA-C PREOPERATIVE DIAGNOSIS: Basal cell [...] Contact Info) Description 04/23/2024 9:30 EDT Appointment [facility] Endoscopy - [address] [phone] Marcellus Walsh MD [address] [place] [address], Level [address] [place] [phone] 05/01/2024 13:30 EDT Appointment [facility] Breast Imaging - [address] [phone] 05/15/2024 15:00 EST Telemedicine [facility] Gastroenterology - [address] [phone] Madhu Park MD PhD 111 [facility], Level 5 [place] [phone] 12/10/2024 11:30 EDT Office Visit [facility] Surgical Oncology - [facility] [address] [place], [place] [phone] [facility] PAPrabhaC 111 [facility], [facility] 2 [place] [phone] documented as of this encounter [...] documented as of this encounter Care Teams Factory Focus Technician Relationship Specialty Start Date End Date Indy Champion MD 7 [place], [place] [address]77[address] PCP - General 04/15/15 03/20/24 documented as of this encounter
--- OUTSIDE RECORDS SUMMARY | 2024-03-27 20:10 | XMS_ITS | Encounter Summary ---
Author Organization [facility] Address [address] [place] [address] Care Team Providers Care Deicer Element Winder Machine Name Role Phone Indy Champion MD Primary Care Provider Reason for Visit * Reason Comments Other FB sensation in thro at * Consult (Routine) - Closed Specialty Diagnoses / Procedures Referred By Contac t Referred To Contact Otolaryngology Diagnoses Unspecified foreign body in pharynx causing other injury, initial encounter Indy Champion MD [address] [place] [address] Referral ID Status Reason Start Date Expiration Date V isits Requested Visits Authorized [id number] Closed Specialty Services Required 1 1 Encounter Details Date Type Department Care Team (Late st Contact Info) Description 11/23/2016 14:00 EDT Office Visit [facility] ENT- Main [address] [phone] Aga Cassidy MD 111 [facility], Level [address] [place] [phone] Foreign body sensation in throat (Primary Dx) [...] Other FB sensation in throat HPI Indy Champion has requested that I see Sandhya Lomas [...] Contact Info) Description 04/23/2024 9:30 EDT Appointment [facility] Endoscopy - [address] [address] Marcellus Walsh MD 111 [facility], [facility] 5 [place] [phone] 05/01/2024 13:30 EDT Appointment [facility] Breast Imaging - [address] [phone] 05/15/2024 15:00 EST Telemedicine [facility] Gastroenterology - [address] [phone] Madhu Park MD PhD [address] [place] [address] 5 [place] [phone] 12/10/2024 11:30 EDT Office Visit [facility] Surgical Oncology - [address] [phone] [facility], PA-C [address] [place] [address], [facility] 2 [place] [phone] documented as of this encounter Visit Diagnoses Diagnosis Foreign body sensation in throat- Primary Other symptoms involving head and neck documented in this encounter Care Teams Deicer Element Winder Machine Relationship Specialty Start Date End Date Indy Champion MD [address] [place], [place] 962811 PCP - General 04/15/15 03/20/24 documented as of this encounter
--- OUTSIDE RECORDS SUMMARY | 2024-03-27 20:10 | XMS_ITS | Encounter Summary ---
Author Organization [facility] [place] [facility] Address [address] [place] [address] Care Team Providers Care Master [place] Name Role Phone Indy Champion MD Primary Care Provider Encounter Details Date Type Department Care Team (Late st Contact Info) Description 05/16/2019 7:[address] [facility] [address] [place] [address] [facility], PA-C 111 [facility], Level 2 [place] [phone] Social History Tobacco Use Types Packs/Day Years [...] Contact Info) Description 04/23/2024 9:30 EDT Appointment [facility] Endoscopy - [address] [phone] Marcellus Walsh MD [address] [place] [phone] 05/01/2024 13:30 EDT Appointment [facility] Breast Imaging - [address] [phone] 05/15/2024 15:00 EST Telemedicine [facility] Gastroenterology - [address] [phone] Madhu Park MD PhD [address] [place] [phone] 12/10/2024 11:30 EDT Office Visit [facility] Surgical Oncology - [address] [phone] [facility] PA-C [address] [place] [address] 2 [place] [phone] documented as of this encounter Visit Diagnoses Not on filedocumented in this encounter Care Teams Master [place] Relationship Specialty Start Date End Date Indy Champion MD [address] [place] [id number] PCP - General 04/15/15 03/20/24 documented as of this encounter
--- OUTSIDE RECORDS SUMMARY | 2024-03-27 20:10 | XMS_ITS | Encounter Summary ---
Author Organization [facility] Address [address] [place] [address] Care Team Providers Care Leather Scrubber Name Role Phone Joselin Champion MD Primary Care Provider Encounter Details Date Type Department Care Team (Late st Contact Info) Description 05/27/2015 Results Only [facility]- [facility] [phone] Joselin Champion [place] [address] Social History Tobacco Use Types Packs/Day Years [...] Contact Info) Description 04/23/2024 9:30 EDT Appointment [facility] Endoscopy - Main [place] [address] [place] [address] Marcellus Walsh MD 111 [facility] 5 [place] [phone] 05/01/2024 13:30 EDT Appointment [facility] Breast Imaging - [facility] [place] 1 [place], [place] [phone] 05/15/2024 15:00 EST Telemedicine [facility] [place] [address] Madhu Park MD PhD [address] [place] [address] 5 [place] [phone] 12/10/2024 11:30 EDT Office Visit [facility] Surgical Oncology - [place] [phone] [facility], PA-C [address] [place] [address], [facility] 2 [place] [phone] documented as of this encounter [...] ? SANDHYA BARRETT ? Accession #: ? [id number] ? : ? 1960 (Age: 54) ??F [...] types 16,18,31,33,35, 39,45,51,52,56,58, 59,66, and 68 by drapery examiner mediated amplification. Comments Document reviewed and electronically signed by: ? System Interface ? Report date: 06/02/2015 By the signature above, the attending physician certifies that he/she has personally conducted a gross and/or microscopic examination of the described specimens and rendered or confirmed the above diagnosis. End of Report [facility] 05/27/2015 05/28/2015 Joselin Champion MD PATHOLOGY ORDER DARCY [facility] [address] [place] [address] documented in this encounter Visit Diagnoses Not on filedocumented in this encounter Care Teams Leather Scrubber Relationship Specialty Start Date End Date Joselin Champion MD [address] [place], [place] [phone] PCP - General 04/15/15 03/20/24 documented as of this encounter
--- OUTSIDE RECORDS SUMMARY | 2024-03-27 20:10 | XMS_ITS | Encounter Summary ---
Author Organization [facility] Address [address] [place] [address] Care Team Providers Care Tin Flopper Name Role Phone Indy Champion MD Primary Care Provider Reason for Referral * Radiology Services (Routine) - Closed Specialty Diagnoses / Procedures [facility] Referred To Contact Diagnoses Fibrocystic disease of both breasts Procedures RAD US BREAST SCREENING ONLY BILATERAL Indy Stein PA-C [address] [place] [phone] Referral ID Status Reason Start Date Expiration Date Visits Re quested Visits Authorized [id number] Closed 04/28/2017 1 1 Reason for Visit * Reason Onset Date Comments Appointment Related 04/27/2017 Encounter Details Date Type Department Care Team (Late st Contact Info) Description 04/27/2017 Orders Only [facility] Surgical Oncology - [address] [address] Indy Stein PA-C [address] [place] [phone] Fibrocystic disease of both breasts (Primary [...] Contact Info) Description 04/23/2024 9:30 EDT Appointment [facility] Endoscopy - [address] 094201 Marcellus Walsh MD [address] [place] [phone] 05/01/2024 13:30 EDT Appointment [facility] Breast Imaging - [address] [phone] 05/15/2024 15:00 EST Telemedicine [facility] Gastroenterology - [address] 391061 Madhu Park MD PhD [address] [place] [phone] 12/10/2024 11:30 EDT Office Visit [facility] Surgical Oncology - [address] [phone] Magnolia Blood PA-C [address] [place] [address], [facility] 2 [place] [phone] documented as of this encounter Procedures Procedure [...] and Symptoms/Comments: N60.12-Diffuse cystic mastopathy of left qdjles-DYY-44 N60.11-Diffuse cystic mastopathy of right cpoyhn-AOE-50; N60.11-Diffuse cystic mastopathy of right aiwime-MAV-04 N60.12-Diffuse cystic mastopathy of left nhfqtj-GNS-70; High risk, diffuse cystic mastopathy, dense breast [...] October,. Overall assessment: BI-RADS 2: Benign. The digital strategy manager discussed the radiologist's interpretation and follow up recommendations with the patient at the time of the examination. These results will be communicated to your patient via a lay letter from Radiology. Procedure Note Justine Restrepo MD - 11/02/2017 RAD US BREAST SCREENING ONLY BILATERAL 11/02/2017 9:32 AM Signs and Symptoms/Comments: N60.12-Diffuse cystic mastopathy of left pvgomu-AXP-04 N60.11-Diffuse cystic mastopathy of right eqfyhu-XEZ-70; N60.11-Diffuse cystic mastopathy of right wsgzgq-USJ-53 N60.12-Diffuse cystic mastopathy of left ynbmpn-VNO-60; High risk, diffuse cystic mastopathy, dense breast [...] October,. Overall assessment: BI-RADS 2: Benign. The digital strategy manager discussed the radiologist's interpretation and follow up recommendations with the patient at the time of the examination. These results will be communicated to your patient via a lay letter from Radiology. Indy VARGAS US ORDERABL ES documented in this encounter Visit Diagnoses Diagnosis Fibrocystic disease of both breasts- Primary documented in this encounter Care Teams Tin Flopper Relationship Specialty Start Date End Date Indy Champion MD [address] [place] [address] PCP - General 04/15/15 03/20/24 documented as of this encounter
--- OUTSIDE RECORDS SUMMARY | 2024-03-27 20:10 | XMS_ITS | Encounter Summary ---
Author Organization [facility] Address [address] [place] [address] Care Team Providers Care Polls Or Surveys Interviewer Name Role Phone Indy Champion MD Primary Care Provider Encounter Details Date Type Department Care Team (Latest Contact Info) Description 12/19/2017 12:40 EDT - 12/19/2017 12:41 EDT Hospital Encounter [address] [address] Lucius Wood MD [address] [place] [address] 3 [place] [phone] Discharge Disposition: Home or Self [...] Info) Description 04/23/2024 9:30 EDT Appointment [facility] Endoscopy - [address] 695141 Marcellus Walsh MD [address] [place] [phone] 05/01/2024 13:30 EDT Appointment [facility] Breast Imaging - [address] [phone] 05/15/2024 15:00 EST Telemedicine [facility] Gastroenterology - [address] 998041 Madhu Park MD PhD [address] [place] [phone] 12/10/2024 11:30 EDT Office Visit [facility] Surgical Oncology - [address] [phone] Magnolia Blood PAPrabhaC [address] [place] [address], [facility] 2 [place] [phone] documented as of this encounter Visit Diagnoses Not on filedocumented in this encounter Care Teams Polls Or Surveys Interviewer Relationship Specialty Start Date End Date Indy Champion MD [address] [place] [address] PCP - General 04/15/15 03/20/24 documented as of this encounter
--- OUTSIDE RECORDS SUMMARY | 2024-03-27 20:10 | XMS_ITS | Encounter Summary ---
Author Organization [facility] Address [address] [place] [address] Care Team Providers Care Decatizer Name Role Phone Indy Champion MD Primary Care Provider Encounter Details Date Type Department Care Team (Late st Contact Info) Description 01/02/2018 Results Only [facility]- [facility] [phone] Zacarias Santos MD [address] [place] [phone] Social History Tobacco Use Types Packs/Day [...] Description 04/23/2024 9:30 EDT Appointment [facility] Endoscopy - Main [place] [address] [place], [place] 182431 Marcellus Walsh MD [address] [place] [address] 5 [place] [phone] 05/01/2024 13:30 EDT Appointment [facility] Breast Imaging - [facility] [place] 1 [place], [place] [phone] 05/15/2024 15:00 EST Telemedicine [facility] Gastroenterology - [address] [phone] Madhu Park MD PhD [address] [place], [place] [phone] 12/10/2024 11:30 EDT Office Visit [facility] Surgical Oncology - [place] [phone] Magnolia Blood PA-C [address] [place] [address], [facility] 2 [place] [phone] documented as of this encounter [...] ? SANDHYA BARRETT ? Accession #: ? [id number] ? : ? 1960 (Age: 57) ??F [...] (ASCP) 01/03/2018 4:[address] [facility] 01/02/2018 15:3 2 EDT 01/03/2018 15:32 EDT Zacarias Santos MD PATHOLOGY ORDERABLES Performing Organization Address City/State/[facility] Co de Phone Number [facility] [address] [place] [address] documented in this encounter Visit Diagnoses Not on filedocumented in this encounter Care Teams Decatizer Relationship Specialty Start Date End Date Indy Champion MD [address] [place] [address] [id number] PCP - General 04/15/15 03/20/24 documented as of this encounter
--- OUTSIDE RECORDS SUMMARY | 2024-03-27 20:10 | XMS_ITS | Encounter Summary ---
Author Organization [facility] Address [address] [place] [address] Care Team Providers Care News Department Intern Name Role Phone Indy Champion MD Primary Care Provider Reason for Visit * Reason Comments Follow-up Encounter Details Date Type Department Care Team (Late st Contact Info) Description 04/16/2016 11:30 EDT Office Visit [facility] Surgical Oncology - [address] [phone] Indy Stein PA-C [address] [place] [address], Level [address] [place] [phone] Diffuse cystic mastopathy, unspecified laterality [...] OF SURGICAL ONCOLOGY - BREAST [facility] FOLLOW-UP/PROGRESS NOTE - 04/16/2016 PROBLEM: 1. [...] changes in breast skin or nipple discharge. 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 Menarche at age 14. First delivery at age 36. Perimenopausal with cycles every 5 months or so. SOCIAL HISTORY: Sandhya is and lives in [place]. She has two sons. 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 As you recall one of her sons is in college at [employer] in [place] studying business with an ultimate goal for [employer] school. Her other son is in high [...] Mohs surgery 11/2009 basal cell carcinoma, right jain ??? section 1995, 1997 ??? Abdomen surgery [...] breast exam. 6 months with PCP or SALES MERCHANDISING SPECIALIST for anadditional CBE. 3. She is also [...] prepared with speech recognition software or keyboard director data processing techniques. Minor irregularities or keyboarding misprints may be present. (N60.19) Diffuse cystic mastopathy, unspecified laterality (primary encounter diagnosis) (R92.2) Inconclusive mammogram due to dense breasts URI Son No orders of the defined types were placed in this encounter. I was directly supervised by Dr. Mcihael Fajardo, who was in the suite and [...] Appointment [facility] Endoscopy - [address] 144921 Marcellus Walsh MD 111 [facility], Level 5 [place] [phone] 05/01/2024 13:30 EDT Appointment [facility] Breast Imaging - [address] [address] 05/15/2024 15:00 EST Telemedicine [facility] Gastroenterology - [address] 268281 Madhu Park MD PhD 111 [facility], [facility] 5 [place] [phone] 12/10/2024 11:30 EDT Office Visit [facility] Surgical Oncology - [facility] [address] [place], [place] [phone] Magnolia Blood PA-C 111 [facility], [facility] 2 [place] [phone] documented as of this encounter Visit Diagnoses Diagnosis Diffuse cystic mastopathy, unspecified laterality- Primary Inconclusive mammogram due to dense breasts Inconclusive mammogram documented in this encounter Care Teams News Department Intern Relationship Specialty Start Date End Date Indy Champion MD [address] [place], [place] 212911 PCP - General 04/15/15 03/20/24 documented as of this encounter
--- OUTSIDE RECORDS SUMMARY | 2024-03-27 20:10 | XMS_ITS | Encounter Summary ---
Author Organization Health system Address [address] [place] [address] Care Team Providers Care Gang Ripsaw Operator Name Role Phone Indy Champion MD Primary Care Provider Reason for Visit * Reason Onset Date Comments Appointment Related 02/13/2020 Encounter Details Date Type Department Care Team (Late st Contact Info) Description 02/13/[facility] Mammography - [address] [address] Viktoria Herr Appointment Related Social History Tobacco [...] Contact Info) Description 04/23/2024 9:30 EDT Appointment [facility] Endoscopy - [address] 224091 Marcellus Walsh MD [address] [place] [address] 5 [place] [phone] 05/01/2024 13:30 EDT Appointment [facility] Breast Imaging - [address] 380201 05/15/2024 15:00 EST Telemedicine [facility] Gastroenterology - [address] [phone] Madhu Park MD PhD [address] [place] [phone] 12/10/2024 11:30 EDT Office Visit [facility] Surgical Oncology - [address] [phone] Magnolia Blood, PA-C [address] [place] [address], [facility] 2 [place] [phone] documented as of this encounter Visit Diagnoses Not on filedocumented in this encounter Care Teams Gang Ripsaw Operator Relationship Specialty Start Date End Date Indy Champion MD [address] [place] [address] PCP - General 04/15/15 03/20/24 documented as of this encounter
--- OUTSIDE RECORDS SUMMARY | 2024-03-27 20:10 | XMS_ITS | Encounter Summary ---
Author Organization [facility] Address [address] [place] [address] Care Team Providers Care Advanced Solutions Architect Name Role Phone Joselin Champion MD Primary Care Provider Encounter Details Date Type Department Care Team (Late st Contact Info) Description 06/11/2015 Results Only [facility] [phone] Yamilet Cordero MD [address] [place] [phone] Social History Tobacco Use Types Packs/Day [...] Description 04/23/2024 9:30 EDT Appointment [facility] Endoscopy - Main [place] [address] [place], [place] 265291 Marcellus Walsh MD [address] [place] [address] 5 [place] [phone] 05/01/2024 13:30 EDT Appointment [facility] Breast Imaging - [facility] [place] 1 [place], [place] [phone] 05/15/2024 15:00 EST Telemedicine [facility] Gastroenterology - [place] 477721 Madhu Park MD PhD [address] [place], [place] [phone] 12/10/2024 11:30 EDT Office Visit [facility] Surgical Oncology - [place] [phone] Magnolia Blood PA-C [address] [place] [address], [facility] 2 [place] [phone] documented as of this encounter [...] ? SANDHYA BARRETT ? Accession #: ? [id number] ? : ? 1960 (Age: 54) ??F [...] [place] and stroma. ??(Dr. Jamil)/[facility] Document reviewed and electronically signed by: [...] 0.2 x 0.1 cm). Submitted intact in 1Fred Kelley 06/12/2015 3:01 PM End of Report [facility] 06/11/2015 13:4 9 EST 06/12/2015 13:49 EST Yamilet Cordero MD PATHOLOGY ORDERABLES [facility] [address] [place] [address] documented in this encounter Visit Diagnoses Not on filedocumented in this encounter Care Teams Advanced Solutions Architect Relationship Specialty Start Date End Date Joselin Champion MD [address] [place] [address] PCP - General 04/15/15 03/20/24 documented as of this encounter
--- OUTSIDE RECORDS SUMMARY | 2024-03-27 20:10 | XMS_ITS | Encounter Summary ---
Author Organization [facility] Address [address] [place] [address] Care Team Providers Care Fire Manager Name Role Phone Indy Champion MD Primary Care Provider Encounter Details Date Type Department Care Team (Late st Contact Info) Description 11/02/2017 7:46 EDT - 11/02/2017 23:59 EDT Hospital Encounter [facility] [address] [place] [address] Nurys Meza MD Bruno, Kimberly Masayo, [place] [address] Discharge Disposition: Auto Discharge Social [...] Contact Info) Description 04/23/2024 9:30 EDT Appointment [facility] Endoscopy - [address] 146981 Marcellus Walsh MD [address] [place] [phone] 05/01/2024 13:30 EDT Appointment [facility] Breast Imaging - [address] [phone] 05/15/2024 15:00 EST Telemedicine [facility] Gastroenterology - [address] 943591 Madhu Park MD PhD [address] [place] [phone] 12/10/2024 11:30 EDT Office Visit [facility] Surgical Oncology - [address] [phone] Magnolia Blood PA-C [address] [place] [address], [facility], Level 2 [place] [phone] documented as of this encounter Visit Diagnoses Not on filedocumented in this encounter Care Teams Fire Manager Relationship Specialty Start Date End Date Indy Champion MD [address] [place], [place] 850821 PCP - General 04/15/15 03/20/24 documented as of this encounter
--- OUTSIDE RECORDS SUMMARY | 2024-03-27 20:10 | XMS_ITS | Encounter Summary ---
Author Organization [facility] Address [address] [place] [address] Care Team Providers Care Data Lead Name Role Phone Joselin Champion MD Primary Care Provider Encounter Details Date Type Department Care Team (Late st Contact Info) Description 12/14/2017 Results Only [facility]- [facility] [phone] Zacarias Santos MD [address] [place] [phone] Social History Tobacco Use Types Packs/Day [...] Description 04/23/2024 9:30 EDT Appointment [facility] Endoscopy - Main [place] [address] [place], [place] [address]81 Marcellus Walsh MD [address] [place] [address] 5 [place] [phone] 05/01/2024 13:30 EDT Appointment [facility] Breast Imaging - [facility] S [place] 1 [place], [place] [phone] 05/15/2024 15:00 EST Telemedicine [facility] Gastroenterology - [address] [phone] Madhu Park MD PhD [address] [place], [place] [phone] 12/10/2024 11:30 EDT Office Visit [facility] Surgical Oncology - [place] [phone] Magnolia Blood PAPrabhaC [address] [place] [address], [facility] 2 [place] [phone] documented as of this encounter [...] ? SANDHYA BARRETT ? Accession #: ? [id number] ? : ? 1960 (Age: 57) ??F [...] types 16,18,31,33,35, 39,45,51,52,56,58, 59,66, and 68 by special education coordinator mediated amplification. Comments Document reviewed and electronically signed by: ? System Interface ? Report date: 12/21/2017 By the signature above, the attending physician certifies that he/she has personally conducted a gross and/or microscopic examination of the described specimens and rendered or confirmed the above diagnosis. End of Report [facility] 12/14/2017 12/15/2017 Zacarias Santos MD PATHOLOGY ORDERABLES [facility] [address] [place] [address] documented in this encounter Visit Diagnoses Not on filedocumented in this encounter Care Teams Data Lead Relationship Specialty Start Date End Date Joselin Champion MD [address] [place] [address] PCP - General 04/15/15 03/20/24 documented as of this encounter
--- OUTSIDE RECORDS SUMMARY | 2024-03-27 20:11 | XMS_ITS | Encounter Summary ---
Author Organization [facility] Address [address] [place] [address] Care Team Providers Care Gas Jockey Name Role Phone Unknown, Provider Primary Care Provider Encounter Details Date Type Department Care Team (Late st Contact Info) Description 12/15/2009 9:37 EDT - 12/15/2009 9:38 EDT Hospital Encounter [facility] - Other [address] [place] [address] Ingrid Casillas MD [address] [place] [phone] Discharge Disposition: Home or Self Care Social [...] 04/23/2024 9:30 EDT Appointment [facility] Endoscopy - [address] [phone] Marcellus Walsh MD [address] [place] [address] 5 [place] [phone] 05/01/2024 13:30 EDT Appointment [facility] Breast Imaging - [address] [phone] 05/15/2024 15:00 EST Telemedicine [facility] Gastroenterology - [address] 458041 Madhu Park MD PhD [address] [place] [address] 5 [place] [phone] 12/10/2024 11:30 EDT Office Visit [facility] Surgical Oncology - [address] [phone] Magnolia Blood PA-C [address] [place] [address], [facility] 2 [place] [phone] documented as of this encounter Visit Diagnoses Not on filedocumented in this encounter Care Teams Gas Jockey Relationship Specialty Start Date End Date Unknown, Provider, PCP - General 10/23/09 07/08/10 documented as of this encounter
--- OUTSIDE RECORDS SUMMARY | 2024-03-27 20:11 | XMS_ITS | Encounter Summary ---
Author Organization [facility] Address [address] [place] [address] Care Team Providers Care Rock Picker Name Role Phone None, Provider Primary Care Provider Unavailabl e Reason for Visit * Reason Comments Follow-up Encounter Details Date Type Department Care Team (Late st Contact Info) Description 04/13/2011 9:30 EDT Office Visit [facility] Surgical Oncology - [facility] [address] [place] [address] Mary Jo Dyson, TRACTOR DISTRIBUTOR [address] [place] [phone] Dense breasts; Diffuse cystic mastopathy Discharge Disposition: [...] SURGICAL ONCOLOGY - [facility] FOLLOW-UP/PROGRESS NOTE - 04/13/2011 PROBLEM: Breast density and fibrocystic breast changes. SUBJECTIVE: Sandhya Lomas is a 50 y.o. old female who is here today for annual screening breast exam. Sandhya established care in the [facility] due to breast nodularity, dense breast [...] Mohs surgery 11/2009 basal cell carcinoma, right mosque ??? section 1995, 1997 ??? Abdomen surgery [...] Tabs by mouth daily. 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 She has two sons, ages 13 and [...] Contact Info) Description 04/23/2024 9:30 EDT Appointment [facility] Endoscopy - [address] [phone] Marcellus Walsh MD [address] [place] [phone] 05/01/2024 13:30 EDT Appointment [facility] Breast Imaging - [address] [phone] 05/15/2024 15:00 EST Telemedicine [facility] Gastroenterology - [address] [phone] Madhu Park MD PhD [address] [place] [address] 5 [place] [phone] 12/10/2024 11:30 EDT Office Visit [facility] Surgical Oncology - [address] [phone] Magnolia Blood PA-C [address] [place] [address], [facility] 2 [place] [phone] documented as of this encounter Visit Diagnoses Diagnosis Dense breasts Inconclusive mammogram Diffuse cystic mastopathy documented in this encounter Historical Medications * This list may reflect changes made after this encounter. Medication Sig Dispensed Refills Start Date End Date CALCIUM CITRATE/VITAMIN D3 (CALCIUM CITRATE + ORAL) Take by mouth daily. 04/13/2011 016 added in this encounter Care Teams Rock Picker Relationship Specialty Start Date End Date None, Provider PCP - General 03/10/11 05/26/11 documented as of this encounter
--- OUTSIDE RECORDS SUMMARY | 2024-03-27 20:11 | XMS_ITS | Encounter Summary ---
Author Organization [facility] Address [address] [place] [address] Care Team Providers Care Learning Support Services Director Name Role Phone Unknown, Provider Primary Care Provider [phone] Encounter Details Date Type Department Care Team (Late st Contact Info) Description 06/08/2010 Abstract Used for ABSTRACTING Data [phone] Unknown, ProviderMD Social History Tobacco Use Types [...] Contact Info) Description 04/23/2024 9:30 EDT Appointment [facility] Endoscopy - [facility] [address] [place], [place] 115171 Marcellus Walsh MD 111 [facility], Level 5 [place] [phone] 05/01/2024 13:30 EDT Appointment [facility] Breast Imaging - [address] [address] 05/15/2024 15:00 EST Telemedicine [facility] Gastroenterology - [facility] [address] [place], [place] [phone] Madhu Park MD PhD 111 [facility], Level 5 [place] [phone] 12/10/2024 11:30 EDT Office Visit [facility] Surgical Oncology - [facility] [address] [place], [place] [phone] Magnolia Blood PA-C 111 [facility], Level 2 [place] [phone] documented as of this encounter Visit Diagnoses Not on filedocumented in this encounter Care Teams Learning Support Services Director Relationship Specialty Start Date End Date Unknown, Provider, PCP - General 10/23/09 07/08/10 documented as of this encounter
--- OUTSIDE RECORDS SUMMARY | 2024-03-27 20:11 | XMS_ITS | Encounter Summary ---
Author Organization [facility] Address [address] [place] [address] Care Team Providers Care Pharmacy Salesperson Name Role Phone Nurys Meza MD Primary Care Prov ider Unavailable Reason for Referral * Radiology Services (Routine/Next Available) - Closed Specialty Diagnoses / Procedures Referred By Dedra sampson Referred To Contact Diagnoses Dense breasts Procedures RAD US BREAST BILATERAL - TWO BREASTS Josh Daniels MD MSc [address] [place] [address] Referral ID Status Reason Start Date Expiration Date Visits Re quested Visits Authorized [id number] Closed 05/02/2013 1 1 Reason for Visit * Reason Onset Date Comments Ultrasound 05/02/2013 sierra [facility] us Encounter Details Date Type Department Care Team (Late st Contact Info) Description 05/02/2013 Orders Only [facility] Surgical Oncology - Main [place] [address] [place] [address] 16274 Josh Daniels MD MSc [address] [place] [address] Dense breasts (Primary Dx) Social [...] Contact Info) Description 04/23/2024 9:30 EDT Appointment [facility] Endoscopy - [address] 943131 Marcellus Walsh MD [address] [facility] 5 [place] [phone] 05/01/2024 13:30 EDT Appointment [facility] Breast Imaging - [address] [phone] 05/15/2024 15:00 EST Telemedicine [facility] Gastroenterology - [address] [phone] Madhu Park MD PhD [address] [place] [address] 5 [place] [phone] 12/10/2024 11:30 EDT Office Visit [facility] Surgical Oncology - [address] [phone] [facility] PAPrabhaC [address] [place] [address], [facility] 2 [place] [phone] documented as of this encounter Procedures Procedure [...] 9:21 AM Signs and Symptoms/Comments: ?? 793.82-Inconclusive [id number]; dense breast tissue/benign appearing right axillary node [...] were discussed with the patient by the shank scourer at the time of the exam. The [...] 10/11/2013 9:21 AM Signs and Symptoms/Comments: 793.82-Inconclusive [id number]-7-CM; dense breast tissue/benign appearing right axillary node [...] were discussed with the patient by the shank scourer at the time of the exam. The [...] mammogram documented in this encounter Care Teams Pharmacy Salesperson Relationship Specialty Start Date End Date Nurys Meza MD PCP - General 05/27/11 04/14/15 documented as of this encounter
--- OUTSIDE RECORDS SUMMARY | 2024-03-27 20:11 | XMS_ITS | Encounter Summary ---
Author Organization [facility] Address [address] [place] [address] Care Team Providers Care Computer Aided Design Technician Name Role Phone None, Provider Primary Care Provider Unavailabl e Reason for Visit * Reason Comments Follow-up skin check bumps on right vázquez Encounter Details Date Type Department Care Team (Late st Contact Info) Description 11/13/2010 11:00 EDT Office Visit [facility] Dermatology 5th Floor [facility] [address] [place] [address] Katina Harper PA [address] [phone] Neoplasm of unspecified nature of [...] Well healed surgical scars on the right mormonism and nasal bridge w/out nodularity On the [...] BIOPSY PROCEDURE NOTE PATIENT INFORMATION: Sandhya Lomas [id number] 1960 DATE OF PROCEDURE: 11/13/2010 SURGEON: URI [...] CRYOSURGERY PROCEDURE NOTE PATIENT INFORMATION: Sandhya Lomas [id number] 1960 [id number] 1960 DATE OF PROCEDURE: 11/13/2010 SURGEON: URI [...] 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 [...] Miscellaneous Notes * Scanned Note-Null - Harry Conveyancer - 11/17/2010 1552 EDT documented in this encounter Plan of Treatment Upcoming Encounters Date Type Department Care Team (Late st Contact Info) Description 04/23/2024 9:30 EDT Appointment [facility] Endoscopy - [address] 937951 Marcellus Walsh MD [address] [place] [address] 5 [place] [phone] 05/01/2024 13:30 EDT Appointment [facility] Breast Imaging - [address] [phone] 05/15/2024 15:00 EST Telemedicine [facility] Gastroenterology - [address] 801561 Madhu Park MD PhD [address] [place] [address] 5 [place] [phone] 12/10/2024 11:30 EDT Office Visit [facility] Surgical Oncology - [address] [phone] [facility] PA-C [address] [place] [address], [facility] 2 [place] [phone] Scheduled Orders Name Type Priority Associated Diagnoses [...] skin documented in this encounter Care Teams Computer Aided Design Technician Relationship Specialty Start Date End Date None, Provider PCP - General 07/09/10 12/22/10 documented as of this encounter
--- OUTSIDE RECORDS SUMMARY | 2024-03-27 20:11 | XMS_ITS | Encounter Summary ---
Author Organization [facility] Address [address] [place] [address] Care Team Providers Care Alumina Plant Supervisor Name Role Phone Nurys Meza MD Primary Care Prov ider Unavailable Reason for Visit * Reason Comments Follow-up Encounter Details Date Type Department Care Team (Late st Contact Info) Description 04/11/2012 10:00 EDT Office Visit [facility] [place] [address] Anuel Hendricks ANP Diffuse cystic mastopathy (Primary [...] 1000 EDT DIVISION OF SURGICAL ONCOLOGY - [facility] FOLLOW-UP/PROGRESS NOTE - 04/11/2012 PROBLEM: Breast density and fibrocystic breast changes. SUBJECTIVE: Sandhya Lomas is a 51 y.o. old female who is here today for annual screening breast exam. Sandhya established care in the Breast [facility] due to breast nodularity, dense breast [...] Mohs surgery 11/2009 basal cell carcinoma, right jainism ??? section 1995, 1997 ??? Abdomen surgery [...] Tabs by mouth daily. 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 She has two sons, ages 14 and [...] Contact Info) Description 04/23/2024 9:30 EDT Appointment [facility] Endoscopy - [address] [phone] Marcellus Walsh MD [address] [place] [phone] 05/01/2024 13:30 EDT Appointment [facility] Breast Imaging - [address] [id number] 05/15/2024 15:00 EST Telemedicine [facility] Gastroenterology - [address] 389311 Madhu Park MD PhD [address] [place] [phone] 12/10/2024 11:30 EDT Office Visit [facility] Surgical Oncology - [address] [phone] [facility], PAPrabhaC [address] [place] [address], [facility] 2 [place] [phone] documented as of this encounter Visit Diagnoses Diagnosis Diffuse cystic mastopathy- Primary documented in this encounter Care Teams Alumina Plant Supervisor Relationship Specialty Start Date End Date Nurys Meza MD PCP - General 05/27/11 04/14/15 documented as of this encounter
--- OUTSIDE RECORDS SUMMARY | 2024-03-27 20:11 | XMS_ITS | Encounter Summary ---
Author Organization [facility] Address [address] [place] [address] Care Team Providers Care Web Content Coordinator Name Role Phone None, Provider Primary Care Provider Unavailabl e Reason for Visit * Reason Onset Date Comments Biopsy 11/16/2010 Encounter Details Date Type Department Care Team (Late st Contact Info) Description 11/16/2010 Telephone [facility] Dermatology 5th Floor [facility] [address] [place] [address] Katina Harper, PA [address] [phone] Biopsy Social History Tobacco Use [...] Contact Info) Description 04/23/2024 9:30 EDT Appointment [facility] Endoscopy - [address] [phone] Marcellus Walsh MD [address] [place] [phone] 05/01/2024 13:30 EDT Appointment [facility] Breast Imaging - [address] [phone] 05/15/2024 15:00 EST Telemedicine [facility] Gastroenterology - [address] 108851 Madhu Park MD PhD [address] [place] [phone] 12/10/2024 11:30 EDT Office Visit [facility] Surgical Oncology - [address] [phone] [facility], PA-C [address] [place] [address], [facility] 2 [place] [phone] documented as of this encounter Visit Diagnoses Not on filedocumented in this encounter Care Teams Web Content Coordinator Relationship Specialty Start Date End Date None, Provider PCP - General 07/09/10 12/22/10 documented as of this encounter
--- OUTSIDE RECORDS SUMMARY | 2024-03-27 20:11 | XMS_ITS | Encounter Summary ---
Author Organization [facility] Address [address] [place] [address] Care Team Providers Care Insurance Claim Approver Name Role Phone Nurys Meza MD Primary Care Prov ider Unavailable Reason for Visit * Reason Onset Date Comments Follow-up 10/06/2011 Encounter Details Date Type Department Care Team (Late st Contact Info) Description 10/06/2011 Telephone [facility] Surgical Oncology - [facility] [address] [place] [address] Mari Macdonald, RN Follow-up Social History Tobacco [...] next appointment is with one of our winder operator in April. She voiced a little concern about this and is still questioning an MRI. Will make the winder operator as well as Dr. Daniels aware of her continued concern. documented in this encounter Plan of Treatment Upcoming Encounters Date Type Department Care Team (Late st Contact Info) Description 04/23/2024 9:30 EDT Appointment [facility] Endoscopy - [address] [phone] Marcellus Walsh MD [address] [place] [address] 5 [place] [phone] 05/01/2024 13:30 EDT Appointment [facility] Breast Imaging - [address] [phone] 05/15/2024 15:00 EST Telemedicine [facility] Gastroenterology - [address] [phone] Madhu Park MD PhD [address] [place] [address] 5 [place] [phone] 12/10/2024 11:30 EDT Office Visit [facility] Surgical Oncology - [address] [phone] [facility] PA-C [address] [place] [address], [facility] 2 [place] [phone] documented as of this encounter Visit Diagnoses Not on filedocumented in this encounter Care Teams Insurance Claim Approver Relationship Specialty Start Date End Date Nurys Meza MD PCP - General 05/27/11 04/14/15 documented as of this encounter
--- OUTSIDE RECORDS SUMMARY | 2024-03-27 20:11 | XMS_ITS | Encounter Summary ---
Author Organization [facility] Address [address] [place] [address] Care Team Providers Care Storage Specialist Name Role Phone Nurys Meza MD Primary Care Prov ider Unavailable Encounter Details Date Type Department Care Team (Late Contact Info) Description 03/06/2013 Results Only Imaging [facility] Surgical Oncology - [address] [phone] Josh Daniels MD [address] [phone] Social History Tobacco Use Types Packs/Day Years [...] Department Care Team (Late Contact Info) Description 04/23/2024 9:30 EDT Appointment [facility] Endoscopy - [facility] [address] [place], [place] [phone] Marcellus Walsh MD 111 [facility], Level 5 [place] [phone] 05/01/2024 13:30 EDT Appointment [facility] Breast Imaging - [address] [phone] 05/15/2024 15:00 EST Telemedicine [facility] Gastroenterology - [facility] [address] [place], [place] 500921 Madhu Park MD PhD 111 [facility], Level 5 [place] [phone] 12/10/2024 11:30 EDT Office Visit [facility] Surgical Oncology - [facility] [address] [place], [place] [phone] [facility] PA-C 111 [facility], [facility] 2 [place] [phone] documented as of this encounter Procedures Procedure [...] were discussed with the patient by the genetic technologist at the time of the exam. These results will be communicated to your patient via a lay letter from Radiology. If any additional imaging is needed we will contact your patient directly. Procedure Note 04/19/2013 Comparison has been made to previous images. [...] were discussed with the patient by the genetic technologist at the time of the exam. These results will be communicated to your patient via a lay letter from Radiology. If any additional imaging is needed we will contact your patient directly. Josh Daniels MD MSc IM[facility] MAMMOGRAPHY [facility]IVERA documented in this encounter Visit Diagnoses Not on filedocumented in this encounter Care Teams Storage Specialist Relationship Specialty Start Date End Date Nurys Meza MD PCP - General 05/27/11 04/14/15 documented as of this encounter
--- OUTSIDE RECORDS SUMMARY | 2024-03-27 20:11 | XMS_ITS | Encounter Summary ---
Author Organization [facility] Address [address] [place] [address] Care Team Providers Care Diesel Engine Mechanic Apprentice Name Role Phone Nurys Meza MD Primary Care Prov ider Unavailable Reason for Visit * Reason Onset Date Comments Ultrasound 04/23/2014 high risk, diffu se cystic mastopathy Encounter Details Date Type Department Care Team (Late st Contact Info) Description 04/23/2014 Orders Only [facility] Surgical Oncology - [address] [phone] Indy Stein PA-C [address] [place] [phone] Diffuse cystic mastopathy (Primary Dx); Inconclusive [...] Contact Info) Description 04/23/2024 9:30 EDT Appointment [facility] Endoscopy - [address] [phone] Marcellus Walsh MD [address] [place] [phone] 05/01/2024 13:30 EDT Appointment [facility] Breast Imaging - [facility] [address] [place] [address] [place], [place] [phone] 05/15/2024 15:00 EST Telemedicine [facility] Gastroenterology - [address] [phone] Madhu Park MD PhD [address] [place] [address], [facility] 5 [place] [phone] 12/10/2024 11:30 EDT Office Visit [facility] Surgical Oncology - [address] [phone] [facility], PA-C [address] [place] [address], [facility] 2 [place] [phone] documented as of this encounter Visit Diagnoses Diagnosis Diffuse cystic mastopathy- Primary Inconclusive mammogram Inconclusive mammogram due to dense breasts Inconclusive mammogram documented in this encounter Care Teams Diesel Engine Mechanic Apprentice Relationship Specialty Start Date End Date Nurys Meza MD PCP - General 05/27/11 04/14/15 documented as of this encounter
--- OUTSIDE RECORDS SUMMARY | 2024-03-27 20:11 | XMS_ITS | Encounter Summary ---
Author Organization [facility] Address [address] [place] [address] Care Team Providers Care Hotel Maintenance Worker Name Role Phone None, Provider Primary Care Provider Unavailabl e Encounter Details Date Type Department Care Team (Late st Contact Info) Description 04/13/2011 Results Only Imaging [facility] Surgical Oncology - [address] 097471 Mary Jo Dyson, REGIONAL TELECOMMUNICATIONS SPECIALIST [address] [place] [phone] Social History Tobacco Use Types Packs/Day Years [...] Contact Info) Description 04/23/2024 9:30 EDT Appointment [facility] Endoscopy - [facility] [address] [place], [place] 755[address] Marcellus Walsh MD 111 [facility], Level [address] [place] [phone] 05/01/2024 13:30 EDT Appointment [facility] Breast Imaging - [address] [phone] 05/15/2024 15:00 EST Telemedicine [facility] Gastroenterology - [address] 147011 Madhu Park MD PhD 111 [facility], Level [address] [place] [phone] 12/10/2024 11:30 EDT Office Visit [facility] Surgical Oncology - [address] [phone] [facility] PA-C 111 [facility], [facility] 2 [place] [phone] documented as of this encounter [...] on filedocumented in this encounter Care Teams Hotel Maintenance Worker Relationship Specialty Start Date End Date None, Provider PCP - General 03/10/11 05/26/11 documented as of this encounter
--- OUTSIDE RECORDS SUMMARY | 2024-03-27 20:11 | XMS_ITS | Encounter Summary ---
Author Organization [facility] Address [address] [place] [address] Care Team Providers Care Directory Clerk Name Role Phone Nurys Meza MD Primary Care Prov ider Unavailable Encounter Details Date Type Department Care Team (Latest Contact Info) Description 03/08/2011 Orders Only [facility] Gastroenterology - [address] [address] Jeremiah Badillo MD Special screening [...] Contact Info) Description 04/23/2024 9:30 EDT Appointment [facility] Endoscopy - [address] [phone] Marcellus Walsh MD 111 [facility], [facility], Level [address] [place] [phone] 05/01/2024 13:30 EDT Appointment [facility] Breast Imaging - [facility] [place] 1 [place], [place] [phone] 05/15/2024 15:00 EST Telemedicine [facility] Gastroenterology - [address] [phone] Madhu Park MD PhD [address] [place] [address], Level [address] [place] [phone] 12/10/2024 11:30 EDT Office Visit [facility] Surgical Oncology - [address] [phone] [facility], PA-C [address] [place] [address], [facility] 2 [place] [phone] documented as of this encounter Visit Diagnoses Diagnosis Special screening for malignant neoplasms, colon- Primary documented in this encounter Care Teams Directory Clerk Relationship Specialty Start Date End Date Nurys Meza MD PCP - General 12/23/10 03/09/11 documented as of this encounter
--- OUTSIDE RECORDS SUMMARY | 2024-03-27 20:11 | XMS_ITS | Encounter Summary ---
Author Organization [facility] Address [address] [place] [address] Care Team Providers Care Sports Specialist Name Role Phone Unknown, Provider Primary Care Provider Encounter Details Date Type Department Care Team (Late st Contact Info) Description 03/11/2010 14:06 EDT - 03/11/2010 23:59 EDT Hospital Encounter [facility] - [address] [address] Ingrid Casillas MD [address] [place] [address] 220 [place] [phone] Josh Daniels MD MSc [address] [place] [address] Discharge Disposition: Home or Self Care Social [...] Code Departure Means Destination Home or Self Ch[facility] documented in this encounter Plan of Treatment Upcoming Encounters Date Type Department Care Team (Late st Contact Info) Description 04/23/2024 9:30 EDT Appointment [facility] Endoscopy - [address] 156821 Marcellus Walsh MD [address] [place] [phone] 05/01/2024 13:30 EDT Appointment [facility] Breast Imaging - [address] [phone] 05/15/2024 15:00 EST Telemedicine [facility] Gastroenterology - [address] [phone] Madhu Park MD PhD [address] [place] [phone] 12/10/2024 11:30 EDT Office Visit [facility] Surgical Oncology - [address] [phone] [facility], PA-C [address] [place] [address], [facility] 2 [place] [phone] documented as of this encounter Visit Diagnoses Not on filedocumented in this encounter Care Teams Sports Specialist Relationship Specialty Start Date End Date Unknown, Provider, PCP - General 10/23/09 07/08/10 documented as of this encounter
--- OUTSIDE RECORDS SUMMARY | 2024-03-27 20:11 | XMS_ITS | Encounter Summary ---
Author Organization [facility] Address [address] [place] [address] Care Team Providers Care Analytical Consultant Name Role Phone Unknown, Provider Primary Care Provider [phone] Encounter Details Date Type Department Care Team (Late st Contact Info) Description 11/26/2009 Abstract Used for ABSTRACTING Data [phone] Unknown, ProviderMD BCC (basal cell carcinoma) Social [...] Info) Description 04/23/2024 9:30 EDT Appointment [facility] Endoscopy - [address] [phone] Marcellus Walsh MD [address] [place] [address], Level [address] [place] [phone] 05/01/2024 13:30 EDT Appointment [facility] Breast Imaging - [address] [phone] 05/15/2024 15:00 EST Telemedicine [facility] Gastroenterology - [address] 384291 Madhu Park MD PhD 111 [facility], Level [address] [place] [phone] 12/10/2024 11:30 EDT Office Visit [facility] Surgical Oncology - [facility] [address] [place], [place] 012011 [facility], PA-C 111 [facility], Level [address] [place] [phone] documented as of this encounter Visit Diagnoses Diagnosis BCC (basal cell carcinoma) Basal cell carcinoma of skin, site unspecified documented in this encounter Care Teams Analytical Consultant Relationship Specialty Start Date End Date Unknown, Provider, PCP - General 10/23/09 07/08/10 documented as of this encounter
--- OUTSIDE RECORDS SUMMARY | 2024-03-27 20:11 | XMS_ITS | Encounter Summary ---
Author Organization [facility] Address [address] [place] [address] Care Team Providers Care Business Taxes Specialist Name Role Phone Nurys Meza MD Primary Care Prov ider Unavailable Reason for Visit * Reason Comments Follow-up Encounter Details Date Type Department Care Team (Late st Contact Info) Description 04/23/2014 10:30 EDT Office Visit [facility] Surgical Oncology - [address] [phone] Indy Stein PA-C 111 [facility], Level 5 [place] [address] Diffuse cystic mastopathy (Primary Dx); [...] HPI DIVISION OF SURGICAL ONCOLOGY - [facility] FOLLOW-UP/PROGRESS NOTE - 04/23/2014 PROBLEM: 1. [...] been stable and she is moderately active. 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 Menarche at age 14. First delivery at age 36. Perimenopausal with cycles every 5 months or so. SOCIAL HISTORY: Sandhya is and lives in [place]. She has two sons. 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 FAMILY HISTORY: No family history of [...] Mohs surgery 11/2009 basal cell carcinoma, right buddhism ??? section 1995, 1997 ??? Abdomen surgery [...] 10/11/2013 9:21 AM Signs and Symptoms/Comments: 793.82-Inconclusive trtjkwdah-MZC-4-CM; dense breast tissue/benign appearing right axillary node [...] were discussed with the patient by the ludlow machine operator at the time of the exam. Mammogram [...] prepared with speech recognition software or keyboard file clerk data entry techniques. Minor irregularities or keyboarding misprints may be present. Sandhya was seen today for follow-up. Diagnoses and associated orders for this visit: Diffuse cystic mastopathy Inconclusive mammogram due to dense breasts URI Son documented in this encounter Plan of Treatment Upcoming Encounters Date Type Department Care Team (Late st Contact Info) Description 04/23/2024 9:30 EDT Appointment [facility] Endoscopy - [address] [phone] Marcellus Walsh MD [address] [place] [address] [phone] 05/01/2024 13:30 EDT Appointment [facility] Breast Imaging - [address] [phone] 05/15/2024 15:00 EST Telemedicine [facility] Gastroenterology - [address] [phone] Madhu Park MD PhD [address] [place] [address] [phone] 12/10/2024 11:30 EDT Office Visit [facility] Surgical Oncology - [address] [phone] Magnolia Blood PA-C [address] [place] [address], [facility] 2 [place] [phone] documented as of this encounter Visit Diagnoses Diagnosis Diffuse cystic mastopathy- Primary Inconclusive mammogram due to dense breasts Inconclusive mammogram documented in this encounter Care Teams Business Taxes Specialist Relationship Specialty Start Date End Date Nurys Meza MD PCP - General 05/27/11 04/14/15 documented as of this encounter
--- OUTSIDE RECORDS SUMMARY | 2024-03-27 20:11 | XMS_ITS | Encounter Summary ---
Author Organization [facility] Address [address] [place] [address] Care Team Providers Care Mortgage Funder Name Role Phone Unknown, Provider Primary Care Provider [phone] Encounter Details Date Type Department Care Team (Late st Contact Info) Description 06/11/2010 Results Only [facility] Surgical Oncology - [address] 873131 Jaime Hester NP [address] [place] [address] [place] [address] Social History Tobacco Use Types [...] Info) Description 04/23/2024 9:30 EDT Appointment [facility] Endoscopy - [facility] [address] [place], [place] [address] Marcellus Walsh MD 111 [facility], Level 5 [place] [phone] 05/01/2024 13:30 EDT Appointment [facility] Breast Imaging - [address] [phone] 05/15/2024 15:00 EST Telemedicine [facility] Gastroenterology - [address] 307901 Madhu Park MD PhD [address] [place] [address], [facility] 5 [place] [phone] 12/10/2024 11:30 EDT Office Visit [facility] Surgical Oncology - [address] [phone] Magnolia Blood PA-C [address] [place] [address], [facility] 2 [place] [phone] documented as of this encounter Visit Diagnoses Not on filedocumented in this encounter Care Teams Mortgage Funder Relationship Specialty Start Date End Date Unknown, Provider, PCP - General 10/23/09 07/08/10 documented as of this encounter
--- OUTSIDE RECORDS SUMMARY | 2024-03-27 20:11 | XMS_ITS | Encounter Summary ---
Author Organization [facility] Address [address] [place] [address] Care Team Providers Care Microcomputer Support Specialist Name Role Phone Nurys Meza MD Primary Care Prov ider Unavailable Encounter Details Date Type Department Care Team (Late st Contact Info) Description 04/19/2013 8:42 EDT - 04/19/2013 23:59 EDT Hospital Encounter [address] [address] Josh Daniels MD MSc [address] [place] [address] Discharge Disposition: Home or Self Care Social [...] Code Departure Means Destination Home or Self Usp documented in this encounter Plan of Treatment Upcoming Encounters Date Type Department Care Team (Late st Contact Info) Description 04/23/2024 9:30 EDT Appointment [facility] Endoscopy - [address] [address] Marcellus Walsh MD [address] [place] [address] [phone] 05/01/2024 13:30 EDT Appointment [facility] Breast Imaging - [address] [phone] 05/15/2024 15:00 EST Telemedicine [facility] Gastroenterology - [address] [phone] Madhu Park MD PhD [address] [place] [address] [phone] 12/10/2024 11:30 EDT Office Visit [facility] Surgical Oncology - [address] [phone] Magnolia Blood, PAPrabhaC 111 [facility], Level 2 [place] [phone] documented as of this encounter Visit Diagnoses Not on filedocumented in this encounter Care Teams Microcomputer Support Specialist Relationship Specialty Start Date End Date Nurys Meza MD PCP - General 05/27/11 04/14/15 documented as of this encounter
--- OUTSIDE RECORDS SUMMARY | 2024-03-27 20:11 | XMS_ITS | Encounter Summary ---
Author Organization [facility] Address [address] [place] [address] Care Team Providers Care Boring And Filling Machine Operator Name Role Phone Unknown, Provider Primary Care Provider [phone] Encounter Details Date Type Department Care Team (Late st Contact Info) Description 01/19/2010 Results Only [facility] Surgical Oncology - [address] [phone] Josh Daniels MD [address] [phone] Social History Tobacco Use Types Packs/Day Years Used Date Smoking Tobacco: Never Assessed Sex and Gender Information Value Date Recorded Sex Assigned at Not on file Gender Identity Female 05/16/2019 10:23 EST Sexual Orientation Not on file documented as of this encounter Plan of Treatment Upcoming Encounters Date Type Department Care Team (Late st Contact Info) Description 04/23/2024 9:30 EDT Appointment [facility] Endoscopy - [address] [phone] Marcellus Walsh MD 111 [facility], Level 5 [place] [phone] 05/01/2024 13:30 EDT Appointment [facility] Breast Imaging - [address] [phone] 05/15/2024 15:00 EST Telemedicine [facility] Gastroenterology - [address] 487091 Madhu Park MD PhD [address] [place] [address], [facility] 5 [place] [phone] 12/10/2024 11:30 EDT Office Visit [facility] Surgical Oncology - [address] [phone] Magnolia Blood PA-C [address] [place] [address], [facility] 2 [place] [phone] documented as of this encounter Visit Diagnoses Not on filedocumented in this encounter Care Teams Boring And Filling Machine Operator Relationship Specialty Start Date End Date Unknown, Provider, PCP - General 10/23/09 07/08/10 documented as of this encounter
--- OUTSIDE RECORDS SUMMARY | 2024-03-27 20:11 | XMS_ITS | Encounter Summary ---
Author Organization [facility] Address [address] [place] [address] Care Team Providers Care Allergist Name Role Phone Unknown, Provider Primary Care Provider Encounter Details Date Type Department Care Team (Late st Contact Info) Description 03/10/[address] [facility]- [facility] [phone] Ingrid Casillas MD [address] [place] [address] [address] [place] [address] Social History Tobacco Use Types [...] Info) Description 04/23/2024 9:[address] [facility] Endoscopy - [facility] [address] [place], [place] [phone] Marcellus Walsh MD 111 [facility], Level 5 [place] [phone] 05/01/2024 13:[address] [facility] Breast Imaging - [facility] [place] [address] [place] [address] 05/15/2024 15:[address] [facility] Gastroenterology - [facility] [address] [place], [place] [phone] Madhu Park MD PhD 111 [facility], Level 5 [place] [phone] 12/10/2024 11:[address] [facility] Surgical Oncology - [facility] [address] [place] [address] Magnolia Blood PA-C 111 [facility], Level 2 [place] [phone] documented as of this encounter Procedures Procedure [...] on filedocumented in this encounter Care Teams Allergist Relationship Specialty Start Date End Date Unknown, Provider, PCP - General 10/23/09 07/08/10 documented as of this encounter
--- OUTSIDE RECORDS SUMMARY | 2024-03-27 20:11 | XMS_ITS | Encounter Summary ---
Author Organization [facility] Address [address] [place] [address] Care Team Providers Care Account Strategist Name Role Phone Unknown, Provider Primary Care Provider Encounter Details Date Type Department Care Team (Late st Contact Info) Description 04/23/2010 Abstract Used for ABSTRACTING Data [phone] Unknown, Provider, Social History Tobacco Use Types Packs/Day Years Used Date Smoking Tobacco: Never Assessed Sex and Gender Information Value Date Recorded Sex Assigned at Not on file Gender Identity Female 05/16/2019 10:23 EST Sexual Orientation Not on file documented as of this encounter Plan of Treatment Upcoming Encounters Date Type Department Care Team (Late st Contact Info) Description 04/23/2024 9:30 EDT Appointment [facility] Endoscopy - [address] [phone] Marcellus Walsh MD 111 [facility], Level [address] [place] [phone] 05/01/2024 13:30 EDT Appointment [facility] Breast Imaging - [address] [phone] 05/15/2024 15:00 EST Telemedicine [facility] Gastroenterology - [address] [phone] Madhu Park MD PhD 111 [facility], Level [address] [place] [phone] 12/10/2024 11:30 EDT Office Visit [facility] Surgical Oncology - [address] [phone] Magnolia Blood PA-C 111 [facility], Level [address] [place] [phone] documented as of this encounter Visit Diagnoses Not on filedocumented in this encounter Care Teams Account Strategist Relationship Specialty Start Date End Date Unknown, Provider, PCP - General 10/23/09 07/08/10 documented as of this encounter
--- OUTSIDE RECORDS SUMMARY | 2024-03-27 20:11 | XMS_ITS | Encounter Summary ---
Author Organization [facility] Address [address] [place] [address] Care Team Providers Care Sports Information Director Name Role Phone Nurys Meza MD Primary Care Prov ider Unavailable Encounter Details Date Type Department Care Team (Latest Contact Info) Description 10/10/2014 7:48 EDT - 10/10/2014 23:59 EDT Hospital Encounter [facility] [place] [address] [place] [address] Nurys Meza MD Discharge Disposition: Auto Discharge [...] Appointment [facility] Endoscopy - [address] [phone] Marcellus Walsh MD [address] [place] [phone] 05/01/2024 13:30 EDT Appointment [facility] Breast Imaging - [address] [phone] 05/15/2024 15:00 EST Telemedicine [facility] Gastroenterology - [address] 597321 Madhu Park MD PhD [address] [place] [address] [phone] 12/10/2024 11:30 EDT Office Visit [facility] Surgical Oncology - [address] 109421 Magnolia Blood PA-C 111 [facility], Level 2 [place] [phone] documented as of this encounter Visit Diagnoses Not on filedocumented in this encounter Care Teams Sports Information Director Relationship Specialty Start Date End Date Nurys Meza MD PCP - General 05/27/11 04/14/15 documented as of this encounter
--- OUTSIDE RECORDS SUMMARY | 2024-03-27 20:11 | XMS_ITS | Encounter Summary ---
Author Organization [facility] Address [address] [place] [address] Care Team Providers Care Aviation Support Equipment Repairer Name Role Phone Unknown, Provider Primary Care Provider [phone] Encounter Details Date Type Department Care Team (Late st Contact Info) Description 11/17/2009 Orders Only [facility] Surgical Oncology - [address] [phone] Josh Daniels MD [address] [phone] Social History Tobacco Use Types Packs/Day Years [...] 9:30 EDT Appointment [facility] Endoscopy - [address] 144331 Marcellus Walsh MD 111 [facility], Level [address] [place] [phone] 05/01/2024 13:30 EDT Appointment [facility] Breast Imaging - [address] [phone] 05/15/2024 15:00 EST Telemedicine [facility] Gastroenterology - [address] 242731 Madhu Park MD PhD 111 [facility], [facility] 5 [place] [phone] 12/10/2024 11:30 EDT Office Visit [facility] Surgical Oncology - [address] [phone] Magnolia Blood PA-C 111 [facility], [facility] 2 [place] [phone] documented as of this encounter [...] prior ultrasound performed at [facility] dated 05/13/2009, 12/19/2007 and 05/20/2006. Clinical History: [...] were discussed with the patient by the saddle mechanic at the time of the exam. The patient will be notified of her/his breast imaging results via a lay letter from radiology. Radiology will contact the patient directly regarding any findings which require additional imaging (Category 0) at this time. Overall assessment category 3 Procedure Note 11/17/2009 Right breast ultrasound dated 11/17/2009 Comparison: 05/20/2009 and prior ultrasound performed at the [facility] dated 05/13/2009, 12/19/2007 and 05/20/2006. Clinical History: [...] were discussed with the patient by the saddle mechanic at the time of the exam. The patient will be notified of her/his breast imaging results via a lay letter from radiology. Radiology will contact the patient directly regarding any findings which require additional imaging (Category 0) at this time. Overall assessment category 3 Josh Daniels MD MSc IMG US ORDERABLES documented in this encounter Visit Diagnoses Not on filedocumented in this encounter Care Teams Aviation Support Equipment Repairer Relationship Specialty Start Date End Date Unknown, Provider, PCP - General 10/23/09 07/08/10 documented as of this encounter
--- OUTSIDE RECORDS SUMMARY | 2024-03-27 20:11 | XMS_ITS | Encounter Summary ---
Author Organization [facility] Address [address] [place] [address] Care Team Providers Care Diesel Truck Technician Name Role Phone Unknown, Provider Primary Care Provider Reason for Visit * Reason Onset Date Comments Follow-up 06/22/2010 6 MONTH F/U RIGH T BR LESION HIGH RISK BILATERAL US Encounter Details Date Type Department Care Team (Late st Contact Info) Description 06/22/2010 Orders Only [facility] Surgical Oncology - [address] [phone] Josh Daniels MD MSc [address] [place] [phone] Lump or mass in breast (Primary [...] Contact Info) Description 04/23/2024 9:30 EDT Appointment [facility] Endoscopy - [address] 639181 Marcellus Walsh MD 111 [facility], Level 5 [place] [phone] 05/01/2024 13:30 EDT Appointment [facility] Breast Imaging - [facility] S [place] [address] [place], [place] [phone] 05/15/2024 15:00 EST Telemedicine [facility] Gastroenterology - [address] [phone] Madhu Park MD PhD 111 [facility] 5 [place] [phone] 12/10/2024 11:30 EDT Office Visit [facility] Surgical Oncology - [address] [address] Magnolia Blood PA-C 111 [facility], [facility] 2 [place] [phone] documented as of this encounter [...] were discussed with the patient by the line operator. The patient will be notified of her/his [...] were discussed with the patient by the line operator. The patient will be notified of her/his breast imaging results via a lay letter from Radiology. Radiology will contact the patient directly regarding any findings which require additional imaging (Category 0) at this time. Josh Daniels MD MSc IMG US ORDERABLES documented in this encounter Visit Diagnoses Diagnosis Lump or mass in breast- Primary documented in this encounter Care Teams Diesel Truck Technician Relationship Specialty Start Date End Date Unknown, Provider, PCP - General 10/23/09 07/08/10 documented as of this encounter
--- OUTSIDE RECORDS SUMMARY | 2024-03-27 20:11 | XMS_ITS | Encounter Summary ---
Author Organization [facility] Address [address] [place] [address] Care Team Providers Care Pipe Tester Name Role Phone Nurys Meza MD Primary Care Prov ider Unavailable Encounter Details Date Type Department Care Team (Latest Contact Info) Description 04/11/2012 8:32 EDT - 04/11/2012 23:59 EDT Hospital Encounter [address] [address] Nurys Meza MD Discharge Disposition: Home or [...] Code Departure Means Destination Home or Self Half-Way documented in this encounter Plan of Treatment Upcoming Encounters Date Type Department Care Team (Late st Contact Info) Description 04/23/2024 9:30 EDT Appointment [facility] Endoscopy - [address] 108941 Marcellus Walsh MD [address] [place] [phone] 05/01/2024 13:30 EDT Appointment [facility] Breast Imaging - [address] [phone] 05/15/2024 15:00 EST Telemedicine [facility] Gastroenterology - [address] [phone] Madhu Park MD PhD [address] [place] [phone] 12/10/2024 11:30 EDT Office Visit [facility] Surgical Oncology - [address] [phone] Magnolia Blood PAPrabhaC [address] [place] [address], [facility] 2 [place] [phone] documented as of this encounter Visit Diagnoses Not on filedocumented in this encounter Care Teams Pipe Tester Relationship Specialty Start Date End Date Nurys Meza MD PCP - General 05/27/11 04/14/15 documented as of this encounter
--- OUTSIDE RECORDS SUMMARY | 2024-03-27 20:11 | XMS_ITS | Encounter Summary ---
Author Organization [facility] Address [address] [place] [address] Care Team Providers Care Forest Management Teacher Name Role Phone None, Provider Primary Care Provider Unavailabl e Encounter Details Date Type Department Care Team (Late st Contact Info) Description 07/16/2010 Results Only Imaging [facility] Surgical Oncology - [address] 120751 Josh Daniels MD [address] [phone] Social History Tobacco Use Types Packs/Day Years [...] Contact Info) Description 04/23/2024 9:30 EDT Appointment [facility] Endoscopy - [facility] [address] [place], [place] [address] Marcellus Walsh MD 111 [facility], Level 5 [place] [phone] 05/01/2024 13:30 EDT Appointment [facility] Breast Imaging - [address] 189281 05/15/2024 15:00 EST Telemedicine [facility] Gastroenterology - [address] 535021 Madhu Park MD PhD 111 [facility], Level [address] [place] [phone] 12/10/2024 11:30 EDT Office Visit [facility] Surgical Oncology - [address] [phone] Magnolia Blood PA-C 111 [facility], Level 2 [place] [phone] documented as of this encounter [...] this time. Josh Daniels MD MSc IMG MAMMOGRAPHY ANITA RIVERA documented in this encounter Visit Diagnoses Not on filedocumented in this encounter Care Teams Forest Management Teacher Relationship Specialty Start Date End Date None, Provider PCP - General 07/09/10 12/22/10 documented as of this encounter
--- OUTSIDE RECORDS SUMMARY | 2024-03-27 20:11 | XMS_ITS | Encounter Summary ---
Author Organization [facility] Address [address] [place] [address] Care Team Providers Care Facilities Mechanical Design Engineer Name Role Phone None, Provider Primary Care Provider Unavailabl e Encounter Details Date Type Department Care Team (Late st Contact Info) Description 11/13/2010 Results Only [facility] Dermatology 5th [address] 231441 Bogdan Harper PA [address] [phone] Social History Tobacco Use Types Packs/Day Years [...] EDT Appointment [facility] Endoscopy - [address] [phone] Marcellus Walhs MD 111 [facility] 5 [place] [phone] 05/01/2024 13:30 EDT Appointment [facility] Breast Imaging - [address] [phone] 05/15/2024 15:00 EST Telemedicine [facility] Gastroenterology - [address] 590101 Madhu Park MD PhD 111 [facility], [facility] 5 [place] [phone] 12/10/2024 11:30 EDT Office Visit [facility] Surgical Oncology - [facility] [address] [place], [place] [phone] Magnolia Blood, PA-C 111 [facility], [facility] 2 [place] [address] documented as of this encounter [...] ? SANDHYA BARRETT ? Accession #: ? [id number] ? : ? 1960 (Age: 50) ??F [...] reviewed and electronically signed by: ? DIXIE PLATA MD ? Report ??Date: 11/16/2010 14:47 [...] ? entirely submitted in a single cassette. ??(Klaus Harvey)/mms ? End of Report ? [facility] 11/13/2010 11/13/2010 14: 29 EDT Bogdan [facility] ORDERAB LES [facility] [address] [place] [address] documented in this encounter Visit Diagnoses Not on filedocumented in this encounter Care Teams Facilities Mechanical Design Engineer Relationship Specialty Start Date End Date None, Provider PCP - General 07/09/10 12/22/10 documented as of this encounter
--- OUTSIDE RECORDS SUMMARY | 2024-03-27 20:11 | XMS_ITS | Encounter Summary ---
Author Organization [facility] Address [address] [place] [address] Care Team Providers Care Wrecking Supervisor Name Role Phone Unknown, Provider Primary Care Provider [phone] Encounter Details Date Type Department Care Team (Late st Contact Info) Description 12/15/2009 Results Only [facility] Laboratory Services - [facility] ([facility]) [address] [place] [address] Ingrid Casillas MD [address] [place] [address] [address] [place] [phone] Social History Tobacco Use Types Packs/Day Years [...] EDT Appointment [facility] Endoscopy - [facility] [address] [place], [place] 1237[address] Marcellus Walsh MD [address] [facility], Level 5 [place] [phone] 05/01/2024 13:30 EDT Appointment [facility] Breast Imaging - [address] 896171 05/15/2024 15:00 EST Telemedicine [facility] Gastroenterology - [facility] [address] [place] [address] Madhu Park MD PhD [address] [facility], Level 5 [place] [phone] 12/10/2024 11:30 EDT Office Visit [facility] Surgical Oncology - [facility] [address] [place], [place] [phone] Magnolia Blood PA-C [address] [facility], Level 2 [place] [phone] documented as of this encounter [...] EDT Ingrid Casillas MD MICROBIOLOGY - GENE RAL ORDERABLES [facility] [address] [place] [address] * CYTOPATHOLOGY (12/15/2009 0:00 EDT) Pathology Report: CYTOPATHOLOGY REPORT ? Reports generated via electronic interface contain original data; ? however they are lacking the format of the original report. ? Caution should be taken when reading/interpreti ng unformatted reports. ? Name: ? SANDHYA BARRETT ? Accession #: ? [id number] ? : ? 1960 (Age: 49) ??F [...] PATHOLOGY ORDERABLE S [facility] [address] [place] [address] documented in this encounter Visit Diagnoses Not on filedocumented in this encounter Care Teams Wrecking Supervisor Relationship Specialty Start Date End Date Unknown, Provider, PCP - General 10/23/09 07/08/10 documented as of this encounter
--- OUTSIDE RECORDS SUMMARY | 2024-03-27 20:11 | XMS_ITS | Encounter Summary ---
Author Organization [facility] Address [address] [place] [address] Care Team Providers Care Alteration Hand Name Role Phone Nurys Meza MD Primary Care Prov ider Unavailable Reason for Visit * Reason Onset Date Comments Other 09/30/2011 Encounter Details Date Type Department Care Team (Late st Contact Info) Description 09/30/2011 Telephone [facility] - [facility] [address] [place] [address] Josh Daniels MD MSc [address] [place] [phone] Other Social History Tobacco Use Types Packs/Day [...] Contact Info) Description 04/23/2024 9:30 EDT Appointment [place] Endoscopy - [address] 802191 Marcellus Walsh MD [address] [place] [phone] 05/01/2024 13:30 EDT Appointment [facility] Breast Imaging - [address] [phone] 05/15/2024 15:00 EST Telemedicine [facility] Gastroenterology - [address] 112301 Madhu Park MD PhD [address] [place] [address] 5 [place] [phone] 12/10/2024 11:30 EDT Office Visit [facility] - [address] [phone] Magnolia Blood PA-C [address] [place] [address], [facility] 2 [place] [phone] documented as of this encounter Visit Diagnoses Not on filedocumented in this encounter Care Teams Alteration Hand Relationship Specialty Start Date End Date Nurys Meza MD PCP - General 05/27/11 04/14/15 documented as of this encounter
--- OUTSIDE RECORDS SUMMARY | 2024-03-27 20:11 | XMS_ITS | Encounter Summary ---
Author Organization [facility] Address [address] [place] [address] Care Team Providers Care Commodities Trader Name Role Phone Nurys Meza MD Primary Care Prov ider Unavailable Encounter Details Date Type Department Care Team (Late st Contact Info) Description 10/04/2012 7:44 EDT - 10/04/2012 23:59 EDT Hospital Encounter [address] [address] Michael Fajardo MD 111 [facility], Level 2 [place] [phone] Discharge Disposition: Home or Self Care Social [...] Code Departure Means Destination Home or Self Skilled Nursing documented in this encounter Plan of Treatment Upcoming Encounters Date Type Department Care Team (Late st Contact Info) Description 04/23/2024 9:30 EDT Appointment [facility] Endoscopy - [address] 544321 Marcellus Walsh MD [address] [place] [phone] 05/01/2024 13:30 EDT Appointment [facility] Breast Imaging - [address] [phone] 05/15/2024 15:00 EST Telemedicine [facility] Gastroenterology - [address] 365111 Madhu Park MD PhD [address] [place] [phone] 12/10/2024 11:30 EDT Office Visit [facility] Surgical Oncology - [address] 832661 Magnolia Blood, PA-C 111 [facility], Level 2 [place] [phone] documented as of this encounter Visit Diagnoses Not on filedocumented in this encounter Care Teams Commodities Trader Relationship Specialty Start Date End Date Nurys Meza MD PCP - General 05/27/11 04/14/15 documented as of this encounter
--- OUTSIDE RECORDS SUMMARY | 2024-03-27 20:11 | XMS_ITS | Encounter Summary ---
Author Organization [facility] Address [address] [place] [address] Care Team Providers Care Family Engagement Specialist Name Role Phone None, Provider Primary Care Provider Unavailabl e Encounter Details Date Type Department Care Team (Latest Contact Info) Description 03/11/2011 9:04 EDT - 03/11/2011 23:59 EDT Hospital Encounter [facility] Endoscopy Outpatient [address] [place] [address] Jeremiah Badillo MD Discharge Disposition: Home or [...] Code Departure Means Destination Home or Self Assisted documented in this encounter H&P Notes * Jeremiah Badillo MD - 03/11/2011 1127 EDT Sedation for Procedure History & Physical Date: 03/11/2011 Time: 11:27 Location: [address] Planned Procedure: Colonoscopy Chief Complaint/Indications for [...] Mohs surgery 11/2009 basal cell carcinoma, right uatsdin ??? Abdomen surgery 1988 dermoid cyst ??? [...] & Physical Date: 03/11/2011 Time: 10:26 Location: [address] Planned Procedure: Colonoscopy Chief Complaint/Indications for [...] Mohs surgery 11/2009 basal cell carcinoma, right uatsdin ??? Abdomen surgery 1988 dermoid cyst ??? [...] documented in this encounter Procedure Notes * Greens Or Grounds Superintendent, Scan - 03/11/2011 0000 EDTAssociated Order(s): PROCEDURE REPORTS - SCANNED documented in this encounter Miscellaneous Notes * Scanned Note-Null - Greens Or Grounds Superintendent, Scan - 03/11/2011 0000 EDT * Scanned Note-Null - Greens Or Grounds Superintendent, Scan - 03/11/2011 0000 EDT * Brief Op Note - Greens Or Grounds Superintendent, Scan - 03/11/2011 0000 EDT documented in this encounter Plan of Treatment Upcoming Encounters Date Type Department Care Team (Late st Contact Info) Description 04/23/2024 9:30 EDT Appointment [facility] Endoscopy - [facility] [address] [place], [place] [phone] Marcellus Walsh MD [address] [phone] 05/01/2024 13:30 EDT Appointment [facility] Breast Imaging - [address] [phone] 05/15/2024 15:00 EST Telemedicine [facility] Gastroenterology - [address] [phone] Madhu Park MD PhD [address] [phone] 12/10/2024 11:30 EDT Office Visit [facility] Surgical Oncology - [facility] [address] [place], [place] 247341 Magnolia Blood PA-C 111 [facility], Level 2 [place] [phone] documented as of this encounter Procedures Procedure Name Priority Date/Time Associated Diagnosis Comments PROCEDURE REPORTS - SCANNED 03/12/2011 8:01 EDT documented in this encounter Results * PROCEDURE REPORTS - SCANNED (03/12/2011 8:01 EDT) 03/12/2011 8:01 EDT Narrative Procedure Note Greens Or Grounds Superintendent, Scan - 03/11/2011 0:00 EDT Scan Greens Or Grounds Superintendent PROCEDURE/MINOR SURG ICAL ORDERABLES documented in this [...] 03/11/2011 documented in this encounter Care Teams Family Engagement Specialist Relationship Specialty Start Date End Date None, Provider PCP - General 03/10/11 05/26/11 documented as of this encounter
--- OUTSIDE RECORDS SUMMARY | 2024-03-27 20:11 | XMS_ITS | Encounter Summary ---
Author Organization [facility] Address [address] [place] [address] Care Team Providers Care Home Theater Specialist Name Role Phone None, Provider Primary Care Provider Unavailabl e Reason for Visit * Reason Comments Procedure Basal cell carcinoma , right vázquez Encounter Details Date Type Department Care Team (Late st Contact Info) Description 12/11/2010 9:00 EDT Office Visit [facility] Dermatology 5th [address] [phone] Daija Reddy PA-C 111 [facility], Level 5 [place] [address] Basal cell carcinoma of lower [...] - well healed linear scars on right denominational and below right eye The remainder of [...] Reddy PA-C 12/11/2010 9:49 Dermatology Outpatient Clinic [facility] SHAVE / TANGENTIAL EXCISION PATIENT INFORMATION: Sandhya Laura Lomas : MRN: [id number] SURGEON: Daija Reddy PA-C PROCEDURE NOTE The [...] CRYOSURGERY PROCEDURE NOTE PATIENT INFORMATION: Sandhya Lomas [id number] 1960 [id number] 1960 DATE OF PROCEDURE: 12/11/2010 SURGEON: Daija Reddy PA-C LOGGING TRUCK DRIVER: none INDICATIONS: SITE/LESION TYPE/DIAGNOSIS: Lesion(s) A: Location: [...] Miscellaneous Notes * Scanned Note-Null - Harry, Account Development Manager - 12/14/2010 1513 EDT documented in this encounter Plan of Treatment Upcoming Encounters Date Type Department Care Team (Late st Contact Info) Description 04/23/2024 9:30 EDT Appointment [facility] Endoscopy - [address] [address] Marcellus Walsh MD [address] [place] [address], Level [address] [place] [phone] 05/01/2024 13:30 EDT Appointment [facility] Breast Imaging - [facility] [place] 1 [place], [place] [address] 05/15/2024 15:00 EST Telemedicine [facility] Gastroenterology - [address] 484261 Madhu Park MD PhD [address] [place] [address], [facility] 5 [place] [phone] 12/10/2024 11:30 EDT Office Visit [facility] Surgical Oncology - [address] 942871 Magnolia Blood, PA-C [address] [place] [address], [facility] 2 [place] [phone] Scheduled Orders Name Type Priority Associated Diagnoses Orde r Schedule SURGICAL PATHOLOGY- ORDER ONLY Pathology Routine Basal cell carcinoma of lower extremity Ordered: 12/11/2010 documented as of this encounter Visit Diagnoses Diagnosis Basal cell carcinoma of lower extremity- Primary Basal cell carcinoma of skin of lower limb, including hip documented in this encounter Care Teams Home Theater Specialist Relationship Specialty Start Date End Date None, Provider PCP - General 07/09/10 12/22/10 documented as of this encounter
--- OUTSIDE RECORDS SUMMARY | 2024-03-27 20:11 | XMS_ITS | Encounter Summary ---
Author Organization [facility] Address [address] [place] [address] Care Team Providers Care Mold Insert Changer Name Role Phone None, Provider Primary Care Provider Unavailabl e Reason for Visit * Reason Onset Date Comments Follow-up 03/19/2011 6 MOS FUP MAMMOG RA Encounter Details Date Type Department Care Team (Late st Contact Info) Description 03/19/2011 Orders Only [facility] Surgical Oncology - [address] [phone] Josh Daniels MD MSc [address] [place] [phone] Inconclusive mammogram (Primary Dx) Social History Tobacco [...] Description 04/23/2024 9:30 EDT Appointment [facility] Endoscopy - [address] [address] Marcellus Walsh MD [address] [facility], Level 5 [place] [phone] 05/01/2024 13:30 EDT Appointment [facility] Breast Imaging - [facility] [place] [address] [place], [place] [address] 05/15/2024 15:00 EST Telemedicine [facility] Gastroenterology - [address] [phone] Madhu Park MD PhD [address] [facility], Level [address] [place] [phone] 12/10/2024 11:30 EDT Office Visit [facility] Surgical Oncology - [address] [phone] Magnolia Blood PA-C [address] [facility] 2 [place] [phone] documented as of this encounter Procedures Procedure [...] and recommendations of the study by the corporate director talent assessment. Procedure Note 09/30/2011 U/S BREAST SCREEN - [...] and recommendations of the study by the corporate director talent assessment. Josh Daniels MD MSc IMG US ORDERABLES documented in this encounter Visit Diagnoses Diagnosis Inconclusive mammogram- Primary documented in this encounter Care Teams Mold Insert Changer Relationship Specialty Start Date End Date None, Provider PCP - General 03/10/11 05/26/11 documented as of this encounter
--- OUTSIDE RECORDS SUMMARY | 2024-03-27 20:11 | XMS_ITS | Encounter Summary ---
Author Organization [facility] Address [address] [place] [address] Care Team Providers Care Web Search Evaluator Name Role Phone Nurys Meza MD Primary Care Prov ider Unavailable Reason for Visit * Reason Comments Follow-up Encounter Details Date Type Department Care Team (Late st Contact Info) Description 04/19/2013 10:30 EDT Office Visit [facility] Surgical Oncology - [facility] [address] [place] [address] Josh Daniels MD MSc [address] [place] [phone] Diffuse cystic mastopathy (Primary Dx) Social History [...] EDT DIVISION OF SURGICAL ONCOLOGY - [facility] FOLLOW-UP/PROGRESS NOTE - 04/19/2013 REASON FOR [...] Mohs surgery 11/2009 basal cell carcinoma, right spiritism ??? section 1995, 1997 ??? Abdomen surgery [...] Tabs by mouth daily. No Known Allergies PLASTIC FIXTURE BUILDER History: 2, para 2. Menarche at age 14. First delivery at age 36. Family History Problem Relation Age of Onset ??? Cancer Mother 68 lung ??? Diabetes Father ??? Cancer Maternal Aunt 58 lungs/p smoking ??? Cancer Maternal Uncle 60 lungs/p smoking ??? Rheumatologic Disease Paternal Grandmother lupus Social History: Sandhya is and lives in [place]. She has two sons, ages 14 and [...] AM Signs and Symptoms/Comments: 610.1- DIFFUSE CYSTIC AMSLTYXHEZ-EHF-3-CM; DENSE BREAST,MULTIPLE NODULARITY BOTH BREASTS Comparison: Ultrasound [...] Description 04/23/2024 9:30 EDT Appointment [facility] Endoscopy - [address] 505841 Marcellus Walsh MD [address] [place] [phone] 05/01/2024 13:30 EDT Appointment [facility] Breast Imaging - [address] [phone] 05/15/2024 15:00 EST Telemedicine [facility] Gastroenterology - [address] 538031 Madhu Park MD PhD [address] [place] [address] 5 [place] [phone] 12/10/2024 11:30 EDT Office Visit [facility] Surgical Oncology - [address] [phone] Magnolia Blood, PA-C [address] [place] [address], [facility] 2 [place] [phone] documented as of this encounter Visit Diagnoses Diagnosis Diffuse cystic mastopathy- Primary documented in this encounter Historical Medications * This list may reflect changes made after this encounter. Medication Sig Dispensed Refills Start Date End Date CHASTE TREE ORAL Take by mouth daily. 02/2016 added in this encounter Care Teams Web Search Evaluator Relationship Specialty Start Date End Date Nurys Meza MD PCP - General 05/27/11 04/14/15 documented as of this encounter
--- OUTSIDE RECORDS SUMMARY | 2024-03-27 20:11 | XMS_ITS | Encounter Summary ---
Author Organization [facility] Address [address] [place] [address] Care Team Providers Care Shipping And Receiving Name Role Phone None, Provider Primary Care Provider Unavailabl e Encounter Details Date Type Department Care Team (Late st Contact Info) Description 07/16/2010 8:11 EST - 07/16/2010 23:59 EST Hospital Encounter [facility] [address] [place] [address] Josh Daniels MD MSc [address] [place] [address] Discharge Disposition: Auto Discharge Social History Tobacco [...] EDT Appointment [facility] Endoscopy - [address] [phone] Marcellus Walsh MD [address] [place] [phone] 05/01/2024 13:30 EDT Appointment [facility] Breast Imaging - [address] [phone] 05/15/2024 15:00 EST Telemedicine [facility] Gastroenterology - [address] [phone] Madhu Park MD PhD [address] [place] [phone] 12/10/2024 11:30 EDT Office Visit [facility] Surgical Oncology - [address] [phone] Magnolia Blood PAPrabhaC [address] [place] [address], [facility] 2 [place] [phone] documented as of this encounter Visit Diagnoses Not on filedocumented in this encounter Care Teams Shipping And Receiving Relationship Specialty Start Date End Date None, Provider PCP - General 07/09/10 12/22/10 documented as of this encounter
--- OUTSIDE RECORDS SUMMARY | 2024-03-27 20:11 | XMS_ITS | Encounter Summary ---
Author Organization [facility] Address [address] [place] [address] Care Team Providers Care Harness And Bag Inspector Name Role Phone None, Provider Primary Care Provider Unavailabl e Encounter Details Date Type Department Care Team (Late st Contact Info) Description 12/11/2010 Results Only [facility] Dermatology 5th Floor [address] [phone] Srinivas Parker PA-C [address] [place] [phone] Social History Tobacco Use Types Packs/Day [...] Contact Info) Description 04/23/2024 9:30 EDT Appointment [facility] Endoscopy - [address] [phone] Marcellus Walsh MD [address] [place] [phone] 05/01/2024 13:30 EDT Appointment [facility] Breast Imaging - [address] [phone] 05/15/2024 15:00 EST Telemedicine [facility] Gastroenterology - [address] 843821 Madhu Park MD PhD 111 [facility], Level 5 [place] [phone] 12/10/2024 11:30 EDT Office Visit [facility] Surgical Oncology - [address] [phone] Magnolia Blood, PAPrabhaC 111 [facility], Level 2 [place] [phone] documented as of this encounter Procedures Procedure [...] ARNOLD, SANDHYA B ? Accession #: ? [id number] ? : ? 1960 (Age: 50) ??F ? Collect Date: ? 12/11/2010 ? Location: ? DERM ? Receive Date: ? 12/11/2010 ? Provider: SRINIVAS E PARKER PA ? Copy to: BOGDAN [...] ? Clinical History: ? Basal cell carcinoma [id number]; clinical diagnosis code: 173.9 ? Gross Description: ? Received in formalin labelled Sandhya Lomas and Gladys vázquez is a 1.3 x 1.2 cm ovoid tangential excision of brown, focally scaled skin. ??The margin is inked. The specimen is serially sectioned and entirely submitted in a single cassette. /tabatha ? End of Report ? [facility] 12/11/2010 12/11/2010 11: 20 EDT Srinivas Parker PA-C PATHOLOGY [facility] [address] [place] [address] documented in this encounter Visit Diagnoses Not on filedocumented in this encounter Care Teams Harness And Bag Inspector Relationship Specialty Start Date End Date None, Provider PCP - General 07/09/10 12/22/10 documented as of this encounter
--- OUTSIDE RECORDS SUMMARY | 2024-03-27 20:11 | XMS_ITS | Encounter Summary ---
Author Organization [facility] Address [address] [place] [address] Care Team Providers Care Willow Specialists Name Role Phone Nurys Meza MD Primary Care Prov ider Unavailable Encounter Details Date Type Department Care Team (Latest Contact Info) Description 04/23/2014 9:21 EDT - 04/23/2014 23:59 EDT Hospital Encounter [facility] [address] [place] [address] Nurys Meza MD Discharge Disposition: Auto Discharge [...] Contact Info) Description 04/23/2024 9:30 EDT Appointment [facility] Endoscopy - [address] 140051 Marcellus Walsh MD [address] [place] [phone] 05/01/2024 13:30 EDT Appointment [facility] Breast Imaging - [address] 427101 05/15/2024 15:00 EST Telemedicine [facility] Gastroenterology - [address] 812461 Madhu Park MD PhD [address] [place] [phone] 12/10/2024 11:30 EDT Office Visit [facility] Surgical Oncology - [address] [phone] Magnolia Blood PA-C [address] [place] [address], [facility], Level 2 [place] [phone] documented as of this encounter [...] AM Signs and Symptoms/Comments: ?? 610.1-Diffuse cystic xectktpaje-LZU-3-CM 793.82-Inconclusive zqrfnlhqr-VVT-7-CM; high risk, diffuse cystic mastopathy, dense breast, [...] were discussed with the patient by the rn medical surgical at the time of the exam. The [...] 9:25 AM Signs and Symptoms/Comments: 610.1-Diffuse cystic mldvnkgffj-WJO-0-CM 793.82-Inconclusive baslhttmi-VJD-1-CM; high risk, diffuse cystic mastopathy, dense breast, [...] were discussed with the patient by the rn medical surgical at the time of the exam. The [...] agree with the findings. Indy Stein PA-C IMG US ORDERABL ES documented in this encounter Visit Diagnoses Not on filedocumented in this encounter Care Teams Willow Specialists Relationship Specialty Start Date End Date Nurys Meza MD PCP - General 05/27/11 04/14/15 documented as of this encounter
--- OUTSIDE RECORDS SUMMARY | 2024-03-27 20:11 | XMS_ITS | Encounter Summary ---
Author Organization [facility] Address [address] [place] [address] Care Team Providers Care Entertainment Lawyer Name Role Phone None, Provider Primary Care Provider Unavailabl e Encounter Details Date Type Department Care Team (Late st Contact Info) Description 07/15/2010 Results Only Imaging [facility] Surgical Oncology - [address] 173981 Josh Daniels MD [address] [phone] Social History Tobacco Use Types Packs/Day Years [...] EDT Appointment [facility] End[facility] - [facility] [address] [place], [place] 154[address] Marcellus Walsh MD 111 [facility], Level 5 [place] [phone] 05/01/2024 13:30 EDT Appointment [facility] Breast Imaging - [address] [phone] 05/15/2024 15:00 EST Telemedicine [facility] Gastroenterology - [address] 161271 Madhu Park MD PhD [address] [place] [address], Level [address] [place] [phone] 12/10/2024 11:30 EDT Office Visit [facility] Surgical Oncology - [address] 583831 Magnolia Blood PA-C [address] [place] [address], [facility] 2 [place] [phone] documented as of this encounter Visit Diagnoses Not on filedocumented in this encounter Care Teams Entertainment Lawyer Relationship Specialty Start Date End Date None, Provider PCP - General 07/09/10 12/22/10 documented as of this encounter
--- OUTSIDE RECORDS SUMMARY | 2024-03-27 20:11 | XMS_ITS | Encounter Summary ---
Author Organization [facility] Address [address] [place] [address] Care Team Providers Care Bus Analyst Name Role Phone None, Provider Primary Care Provider Unavailabl e Reason for Visit * Reason Comments Establish Care Encounter Details Date Type Department Care Team (Late st Contact Info) Description 04/21/2011 14:00 EDT Office Visit [address] [address] Nurys Meza MD Immunization due; Screening; Recurrent [...] - 04/21/2011 14:[address] CHERRY 4 [facility] Dermatology on [facility] documented in this encounter Ordered Prescriptions Prescription [...] Note Anne is a new patient to [facility]. She is seen today to establish care. This is my first visit with her. CHIEF COMPLAINT: Establish care.Lip cold sores. Migraines. Skin cancer history. SOCIAL HISTORY/HEALTH HABITS: 50-year-old female. 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 She has two children ages 15 and 13. Nonsmoker. She consumes 1 glass of winetypically each night and does not take any drugs. PAST OUTSOLE SCHEDULER HISTORY: She sees Dr Potter. Last mammogram [...] 2009. She is followed by dermatology at [facility]. She is considering possibly seeing a different hvac engineering technician. She has questions regarding this. 4. OUTSOLE SCHEDULER: She sees Dr Potter. She is also [...] colonoscopy due in 10 years: 2020. 5. OUTSOLE SCHEDULER. 1. She will continue care with Dr Potter. 2. She will continue breast surveillance exams at the [facility]. She is scheduled for six-month followup ultrasound in September and follow up at the [facility] March 2012. 6. Status post family history [...] Cholesterol, Triglycerides, HDL, LDL); Future - Thyroid [place]; Future - Glucose, Serum; Future Recurrent cold sores - acyclovir (ZOVIRAX) 5 % ointment; Apply to lip at onset of tingling. Can three times per day Fh: diabetes mellitus - Glucose, Serum; Future Migraines Nurys Meza MD documented in this encounter Plan of Treatment Upcoming Encounters Date Type Department Care Team (Late st Contact Info) Description 04/23/2024 9:30 EDT Appointment [facility] Endoscopy - [address] [phone] Marcellus Walsh MD [address] [place] [address] [phone] 05/01/2024 13:30 EDT Appointment [facility] Breast Imaging - [facility] 1 [place], [place] [phone] 05/15/2024 15:00 EST Telemedicine [facility] Gastroenterology - [address] [address] Madhu Park MD PhD [address] [place] [address] [phone] 12/10/2024 11:30 EDT Office Visit [facility] Surgical Oncology - [address] 933421 [facility] PAPrabhaC [address] [place] [address], [facility] 2 [place] [phone] documented as of this encounter Visit Diagnoses [...] 04/21/2011 documented in this encounter Care Teams Bus Analyst Relationship Specialty Start Date End Date None, Provider PCP - General 03/10/11 05/26/11 documented as of this encounter
--- OUTSIDE RECORDS SUMMARY | 2024-03-27 20:11 | XMS_ITS | Encounter Summary ---
Author Organization [facility] Address [address] [place] [address] Care Team Providers Care Manager Ccu Name Role Phone Nurys Meza MD Primary Care Prov ider Unavailable Encounter Details Date Type Department Care Team (Late st Contact Info) Description 10/11/2013 7:54 EDT - 10/11/2013 23:59 EDT Hospital Encounter [facility] [address] [place] [address] Josh Daniels MD MSc [address] [place] [phone] Discharge Disposition: Home or Self Care Social [...] EDT Appointment [facility] Endoscopy - [address] [address] Marcellus Walsh MD [address] [place] [address] [phone] 05/01/2024 13:30 EDT Appointment [facility] Breast Imaging - [address] [phone] 05/15/2024 15:00 EST Telemedicine [facility] Gastroenterology - [address] [phone] Madhu Park MD PhD [address] [place] [phone] 12/10/2024 11:30 EDT Office Visit [facility] Surgical Oncology - [address] [address] [facility] Blood PA-C 111 [facility], [facility], [facility] 2 [place] [phone] documented as of this encounter Procedures Procedure [...] we will contact your patient directly. Indy A Sarita PA-C IMG MAMMOGRAPHY ORDERABLES documented in this encounter Visit Diagnoses Not on filedocumented in this encounter Care Teams Manager Ccu Relationship Specialty Start Date End Date Nurys Meza MD PCP - General 05/27/11 04/14/15 documented as of this encounter
--- OUTSIDE RECORDS SUMMARY | 2024-03-27 20:11 | XMS_ITS | Encounter Summary ---
Author Organization [facility] Address [address] [place] [address] Care Team Providers Care Photogrammetry Airplane Pilot Name Role Phone Nurys Meza MD Primary Care Prov ider Unavailable Encounter Details Date Type Department Care Team (Late Contact Info) Description 04/18/2013 Results Only Imaging [facility] Surgical Oncology - [address] [phone] Josh Daniels MD [address] [phone] Social History Tobacco Use Types Packs/Day Years [...] Info) Description 04/23/2024 9:30 EDT Appointment [facility] Endoscopy - [facility] [address] [place], [place] [phone] Marcellus Walsh MD 111 [facility], Level 5 [place] [phone] 05/01/2024 13:30 EDT Appointment [facility] Breast Imaging - [address] [address] 05/15/2024 15:00 EST Telemedicine [facility] Gastroenterology - [address] 142751 Madhu Park MD PhD [address] [place] [address], [facility] 5 [place] [phone] 12/10/2024 11:30 EDT Office Visit [facility] Surgical Oncology - [address] 049911 [facility] Blood PA-C [address] [place] [address], [facility] 2 [place] [phone] documented as of this encounter Visit Diagnoses Not on filedocumented in this encounter Care Teams Photogrammetry Airplane Pilot Relationship Specialty Start Date End Date Nurys Meza MD PCP - General 05/27/11 04/14/15 documented as of this encounter
--- OUTSIDE RECORDS SUMMARY | 2024-03-27 20:11 | XMS_ITS | Encounter Summary ---
Author Organization [facility] Address [address] [place] [address] Care Team Providers Care Edger Machine Operator Name Role Phone None, Provider Primary Care Provider Unavailabl e Reason for Visit * Reason Onset Date Comments Other 04/12/2011 Patient wants to be seen by another provider for follow up. Encounter Details Date Type Department Care Team (Late st Contact Info) Description 04/12/2011 Telephone [facility] Dermatology 5th [address] [address] Katina Harper PA [address] [phone] Other (Patient wants to be [...] Contact Info) Description 04/23/2024 9:30 EDT Appointment [facility] Endoscopy - [address] [phone] Marcellus Walsh MD [address] [place] [address] 5 [place] [phone] 05/01/2024 13:30 EDT Appointment [facility] Breast Imaging - [address] [phone] 05/15/2024 15:00 EST Telemedicine [facility] Gastroenterology - [address] [phone] Madhu Park MD PhD [address] [place] [address] 5 [place] [phone] 12/10/2024 11:30 EDT Office Visit [facility] Surgical Oncology - [address] [phone] [facility], PA-C [address] [place] [address], [facility] 2 [place] [phone] documented as of this encounter Visit Diagnoses Not on filedocumented in this encounter Care Teams Edger Machine Operator Relationship Specialty Start Date End Date None, Provider PCP - General 03/10/11 05/26/11 documented as of this encounter
--- OUTSIDE RECORDS SUMMARY | 2024-03-27 20:11 | XMS_ITS | Encounter Summary ---
Author Organization [facility] Address [address] [place] [address] Care Team Providers Care Varnish Remover Name Role Phone Unknown, Provider Primary Care Provider [phone] Reason for Visit * Reason Comments Follow-up History of BCC of ri ght mu-ism and right nasal sidewall Actinic Keratosis Face Herpes Recurrent herpes lab william Encounter Details Date Type Department Care Team (Late st Contact Info) Description 04/29/2010 15:00 EDT Office Visit [facility] Dermatology 5th Floor [address] [phone] Frederick Romero MD [address] [place] [address], Level [address] [place] [phone] Personal history of other malignant [...] or about the reaction you are experiencing: [phone]. 10. After you stop the medicine the [...] Notes * Frederick Romero MD - 04/29/2010 6828 EDT Mohs Follow Up Note Chief Complaint Patient presents with ??? Follow-up History of BCC of right mu-ism and right nasal sidewall SUBJECTIVE Sandhya is approximately 6 months status post Mohs surgery for a BCC on the right mu-ism and a BCC of the right nose and she returns today for follow up. She has no concerns about the surgical sites and notes that they have healed up nicely. She denies a history of new or changing skin lesions. Shewould like to be seen at [facility] for ongoing skin surveillance exams and asks [...] soft supple surgical scar on the right mu-ism and right nose without nodularity, ulceration or other concerning signs of recurrence. Palpation of the preauricular, postauricular, parotid, submental, submandibular, occipital and cervical lymph nodes is unremarkable. There are no cutaneous lesions worrisome for malignancy. On the mu-ism, forehead, nose and lip there are approximately [...] 04/29/2010 15:13 * Bethany Hernandez - 04/29/2010 0396 EDT A complete 12 point review of systems was obtained and reviewed. All systems are negative. Bethany Hernandez 04/29/2010 15:06 FREDERICK ROMERO MD 04/29/2010 15:13 documented in this encounter Plan of Treatment Upcoming Encounters Date Type Department Care Team (Late st Contact Info) Description 04/23/2024 9:30 EDT Appointment [facility] Endoscopy - [address] [address] Marcellus Walsh MD [address] [place] [address], [facility], Level [address] [place] [phone] 05/01/2024 13:30 EDT Appointment [facility] Breast Imaging - [address] [address] 05/15/2024 15:00 EST Telemedicine [facility] [place] [facility] Gastroenterology - [address] 578251 Madhu Park MD PhD [address] [place] [address], [facility] 5 [place] [phone] 12/10/2024 11:30 EDT Office Visit [facility] Surgical Oncology - [address] [phone] [facility] PA-C [address] [place] [address], Level 2 [place] [phone] documented as of this encounter Visit Diagnoses Diagnosis Personal history of other malignant neoplasm of skin- Primary documented in this encounter Care Teams Varnish Remover Relationship Specialty Start Date End Date Unknown, Provider, PCP - General 10/23/09 07/08/10 documented as of this encounter
--- OUTSIDE RECORDS SUMMARY | 2024-03-27 20:11 | XMS_ITS | Encounter Summary ---
Author Organization [facility] Address [address] [place] [address] Care Team Providers Care Night Supervisor Name Role Phone None, Provider Primary Care Provider Unavailabl e Encounter Details Date Type Department Care Team (Late st Contact Info) Description 03/17/2011 11:33 EDT - 03/17/2011 23:59 EDT Hospital Encounter [facility] [address] [place] [address] Josh Daniels MD MSc [address] [place] [phone] Discharge Disposition: Home or Self Care Social [...] Code Departure Means Destination Home or Self [facility] documented in this encounter Plan of Treatment Upcoming Encounters Date Type Department Care Team (Late st Contact Info) Description 04/23/2024 9:30 EDT Appointment [facility] Endoscopy - [address] 909201 Marcellus Walsh MD [address] [place] [phone] 05/01/2024 13:30 EDT Appointment [facility] Breast Imaging - [address] [phone] 05/15/2024 15:00 EST Telemedicine [facility] Gastroenterology - [address] [phone] Madhu Park MD PhD [address] [place] [phone] 12/10/2024 11:30 EDT Office Visit [facility] Surgical Oncology - [address] [phone] [facility] PA-C [address] [place] [address] 2 [place] [phone] documented as of this encounter Visit Diagnoses Not on filedocumented in this encounter Care Teams Night Supervisor Relationship Specialty Start Date End Date None, Provider PCP - General 03/10/11 05/26/11 documented as of this encounter
--- OUTSIDE RECORDS SUMMARY | 2024-03-27 20:11 | XMS_ITS | Encounter Summary ---
Author Organization [facility] Address [address] [place] [address] Care Team Providers Care Auto Phone Installer Name Role Phone Nurys Meza MD Primary Care Prov ider Unavailable Encounter Details Date Type Department Care Team (Late st Contact Info) Description 09/30/2011 8:51 EDT - 09/30/2011 23:59 EDT Hospital Encounter [facility] [address] [place] [address] Josh Daniels MD MSc [address] [place] [phone] Discharge Disposition: Auto Discharge Social History Tobacco [...] EDT Appointment [facility] Endoscopy - [address] [phone] Marcellus Walsh MD [address] [place] [address] 5 [place] [phone] 05/01/2024 13:30 EDT Appointment [facility] Breast Imaging - [address] 268481 05/15/2024 15:00 EST Telemedicine [facility] Gastroenterology - [address] 444521 Madhu Park MD PhD [address] [place] [address], [facility] 5 [place] [phone] 12/10/2024 11:30 EDT Office Visit [facility] Surgical Oncology - [address] 606861 [facility], PA-C [address] [place] [address], Level [address] [place] [phone] documented as of this encounter Visit Diagnoses Not on filedocumented in this encounter Care Teams Auto Phone Installer Relationship Specialty Start Date End Date Nurys Meza MD PCP - General 05/27/11 04/14/15 documented as of this encounter
--- OUTSIDE RECORDS SUMMARY | 2024-03-27 20:11 | XMS_ITS | Encounter Summary ---
Author Organization [facility] Address [address] [place] [address] Care Team Providers Care Curing Room Supervisor Name Role Phone None, Provider Primary Care Provider Steve Meza, Nurys Andrew MD Primary Care Prov ider Unavailable Reason for Visit * Reason Onset Date Comments Other 12/21/2010 Patient had surg albert & wants to inquire for any update/result. Encounter Details Date Type Department Care Team (Late st Contact Info) Description 12/21/2010 Telephone [facility] Dermatology 5th Floor [facility] [address] [place], [place] [phone] Daija Reddy PA-C 111 [facility], Level 5 [place] [phone] Other (Patient had surgery & [...] Telephone Encounter - Regina Waldrop - 12/21/2010 2590 EDT Called patient will pathology results. * [...] [facility] Endoscopy - [address] [phone] Marcellus Walsh MD [address] [place] [address] 5 [place] [phone] 05/01/2024 13:30 EDT Appointment [facility] Breast Imaging - [address] [phone] 05/15/2024 15:00 EST Telemedicine [facility] Gastroenterology - [address] 468311 Madhu Park MD PhD [address] [place] [address] 5 [place] [phone] 12/10/2024 11:30 EDT Office Visit [facility] Surgical Oncology - [address] [phone] [facility] PAPrabhaC [address] [place] [address], [facility] 2 [place] [phone] documented as of this encounter Visit Diagnoses Not on filedocumented in this encounter Care Teams Curing Room Supervisor Relationship Specialty Start Date End Date None, Provider PCP - General 07/09/10 12/22/10 Nurys Meza MD PCP - General 12/23/10 03/09/11 documented as of this encounter
--- OUTSIDE RECORDS SUMMARY | 2024-03-27 20:11 | XMS_ITS | Encounter Summary ---
Author Organization [facility] Address [address] [place] [address] Care Team Providers Care It Applications Manager Name Role Phone Nurys Meza MD Primary Care Prov ider Unavailable Reason for Visit * Reason Onset Date Comments Follow-up 04/12/2012 ULTRASOUND ORDER Encounter Details Date Type Department Care Team (Late Contact Info) Description 04/12/[address] [facility] Surgical Oncology - [address] [phone] Anuel Clements ANP Diffuse cystic mastopathy (Primary [...] Info) Description 04/23/2024 9:[address] [facility] Endoscopy - [address] 735131 Marcellus Waslh MD 111 [facility], Level [address] [place] [phone] 05/01/2024 13:[address] [facility] Breast Imaging - [address] [phone] 05/15/2024 15:[address] [facility] Gastroenterology - [address] [phone] Madhu Park MD PhD 111 [facility], Level [address] [place] [phone] 12/10/2024 11:[address] [facility] Surgical Oncology - [address] [phone] [facility] Blood PA-C 111 [facility], [facility] 2 [place] [phone] documented as of this encounter Procedures Procedure Name Priority Date/Time Associated Diagnosis Comments RAD US BREAST SCREENING ONLY 10/04/2012 9:28 EDT documented in this encounter Results * US BREAST SCREEN (10/04/2012 9:28 EDT) Anatomical Region Laterality Modality Other 10/04/2012 9:28 EDT 10/04/2012 10:02 EDT Narrative 10/04/2012 10:02 EDT US BREAST SCREEN Oct 04, 2012 09:28:00 AM Signs and Symptoms/Comments: ??610.1-DIFFUSE CYSTIC [id number]; DENSE BREAST,MULTIPLE NODULARITY BOTH BREASTS Comparison: Ultrasound [...] were discussed with the patient by the jig grinder. Procedure Note 10/04/2012 US BREAST SCREEN Oct 04, 2012 09:28:00 AM Signs and Symptoms/Comments: 610.1-DIFFUSE CYSTIC [id number]; DENSE BREAST,MULTIPLE NODULARITY BOTH BREASTS Comparison: Ultrasound [...] were discussed with the patient by the jig grinder. Anuel ARMSTRONG IMG US ORDERABLES documented in this encounter Visit Diagnoses Diagnosis Diffuse cystic mastopathy- Primary documented in this encounter Care Teams It Applications Manager Relationship Specialty Start Date End Date Nurys Meza MD PCP - General 05/27/11 04/14/15 documented as of this encounter
--- OUTSIDE RECORDS SUMMARY | 2024-03-27 20:11 | XMS_ITS | Encounter Summary ---
Author Organization [facility] Address [address] [place] [address] Care Team Providers Care Pin Maker Name Role Phone None, Provider Primary Care Provider Unavailabl e Reason for Visit * Reason Comments Follow-up Dense breast tissue Encounter Details Date Type Department Care Team (Late st Contact Info) Description 07/16/2010 11:00 EST Office Visit [facility] Surgical Oncology - [facility] [address] [place] [address] Josh Daniels MD MSc [address] [place] [phone] Dense breasts (Primary Dx) Discharge Disposition: Auto [...] EST DIVISION OF SURGICAL ONCOLOGY - BREAST [facility] PROGRESS/FOLLOWUP NOTE - 07/16/2010 REASON FOR VISIT: [...] masses. DIAGNOSTICS: Bilateral screening mammogram performed at [facility] dated Mar 11 2010: The report [...] 9:30 EDT Appointment [facility] Endoscopy - [address] [phone] Marcellus Walsh MD [address] [place] [phone] 05/01/2024 13:30 EDT Appointment [facility] Breast Imaging - [address] [phone] 05/15/2024 15:00 EST Telemedicine [facility] Gastroenterology - [address] 121991 Madhu Park MD PhD [address] [place] [address] 5 [place] [phone] 12/10/2024 11:30 EDT Office Visit [facility] Surgical Oncology - [address] [phone] [facility] Blood PA-C [address] [place] [address], [facility] 2 [place] [phone] documented as of this encounter Visit Diagnoses Diagnosis Dense breasts- Primary Inconclusive mammogram documented in this encounter Care Teams Pin Maker Relationship Specialty Start Date End Date None, Provider PCP - General 07/09/10 12/22/10 documented as of this encounter
--- OUTSIDE RECORDS SUMMARY | 2024-03-27 20:12 | XMS_ITS | Encounter Summary ---
Author Organization [facility] Address [address] [place] [address] Care Team Providers Care Rental Representative Name Role Phone Unavailable Primary Care Provider Unavailabl e Encounter Details Date Type Department Care Team (Late st Contact Info) Description 08/10/2004 13:39 EST Hospital Encounter [facility] - Other [address] [place] [address] Nicki Dover MD Social History Tobacco Use [...] Contact Info) Description 04/23/2024 9:30 EDT Appointment [facility] Endoscopy - [address] 717231 Marcellus Walsh MD 111 [facility], [facility], Level 5 [place] [phone] 05/01/2024 13:30 EDT Appointment [facility] Breast Imaging - [facility] [address] [phone] 05/15/2024 15:00 EST Telemedicine [facility] Gastroenterology - [address] [phone] Madhu Park MD PhD [address] [place] [address], Level [address] [place] [phone] 12/10/2024 11:30 EDT Office Visit [facility] Surgical Oncology - [address] [phone] [facility] Blood PA-C [address] [place] [address], [facility] 2 [place] [phone] documented as of this encounter Visit Diagnoses Not on filedocumented in this encounter
--- OUTSIDE RECORDS SUMMARY | 2024-03-27 20:12 | XMS_ITS | Encounter Summary ---
Author Organization [facility] Address [address] [place] [address] Care Team Providers Care Local Company Tanker Driver Name Role Phone Unknown, Provider Primary Care Provider [phone] Encounter Details Date Type Department Care Team (Late st Contact Info) Description 10/27/2009 Abstract Used for ABSTRACTING Data [phone] Unknown, Provider, BCC (basal cell carcinoma); Dense [...] Info) Description 04/23/2024 9:30 EDT Appointment [facility] Endoscopy - [address] [phone] Marcellus Walsh MD [address] [place] [address], Level [address] [place] [phone] 05/01/2024 13:30 EDT Appointment [facility] Breast Imaging - [address] [phone] 05/15/2024 15:00 EST Telemedicine [facility] Gastroenterology - [address] [phone] Mdahu Park MD PhD [address] [facility] [address] [facility], Level [address] [place] [phone] 12/10/2024 11:30 EDT Office Visit [facility] Surgical Oncology - [facility] [address] [place], [place] [phone] [facility] PA-C [address] [facility], Level [address] [place] [phone] documented as of this encounter Visit Diagnoses [...] 07/18/2015 added in this encounter Care Teams Local Company Tanker Driver Relationship Specialty Start Date End Date Unknown, Provider, PCP - General 10/23/09 07/08/10 documented as of this encounter
--- OUTSIDE RECORDS SUMMARY | 2024-03-27 20:12 | XMS_ITS | Encounter Summary ---
Author Organization [facility] Address [address] [place] [address] Care Team Providers Care Upholsterer Apprentice Name Role Phone Unknown, Provider Primary Care Provider Encounter Details Date Type Department Care Team (Late st Contact Info) Description 11/17/2009 10:46 EDT - 11/17/2009 23:59 EDT Hospital Encounter [facility] [address] [place] [address] Josh Daniels MD MSc [address] [place] [address] Discharge Disposition: Auto Discharge Social History Tobacco [...] Contact Info) Description 04/23/2024 9:30 EDT Appointment [facility] Endoscopy - [address] 483181 Marcellus Walsh MD [address] [place] [address] 5 [place] [phone] 05/01/2024 13:30 EDT Appointment [facility] Breast Imaging - [address] [phone] 05/15/2024 15:00 EST Telemedicine [facility] Gastroenterology - [address] [phone] Madhu Park MD PhD [address] [place] [phone] 12/10/2024 11:30 EDT Office Visit [facility] Surgical Oncology - [address] [phone] [facility], PAPrabhaC [address] [place] [address], [facility] 2 [place] [address] documented as of this encounter Procedures Procedure Name Priority Date/Time Associated Diagnosis Comments ORDERS - SCANNED 04/27/2010 10:2 2 EDT documented in this encounter Results * ORDERS - SCANNED (04/27/2010 10:22 EDT) 04/27/2010 10:2 2 EDT Narrative Procedure Note Inpatient, Physician - 11/17/2009 0:00 EDT Physician Inpatient MD ADMISSION ORDERAB LES documented in this encounter Visit Diagnoses Not on filedocumented in this encounter Care Teams Upholsterer Apprentice Relationship Specialty Start Date End Date Unknown, Provider, PCP - General 10/23/09 07/08/10 documented as of this encounter
--- OUTSIDE RECORDS SUMMARY | 2024-03-27 20:12 | XMS_ITS | Encounter Summary ---
Author Organization [facility] Address [address] [place] [address] Care Team Providers Care Roast Master Name Role Phone None, Provider Primary Care Provider Unavailabl e Encounter Details Date Type Department Care Team (Late st Contact Info) Description 05/14/2005 Before PRISM Converted Visit (Maple) [facility] - Maple conversion [address] [place] [address] Clarice Murcia MD [address] [place] [phone] Social History Tobacco Use Types Packs/Day Years Used Date Smoking Tobacco: Never Assessed Sex and Gender Information Value Date Recorded Sex Assigned at Not on file Gender Identity Female 05/16/2019 10:23 EST Sexual Orientation Not on file documented as of this encounter Progress Notes * Clarcie Murcia MD - 09/09/2009 1942 EST DIVISION [...] Murcia MD A - clarence Job ID: [id number] Document ID: [id number] cc: MD Nicki Osborn MD documented in this encounter Plan of Treatment Upcoming Encounters Date Type Department Care Team (Late st Contact Info) Description 04/23/2024 9:30 EDT Appointment [facility] Endoscopy - [address] [phone] Marcellus Walsh MD [address] [place] [address], Level [address] [place] [phone] 05/01/2024 13:30 EDT Appointment [facility] Breast Imaging - [address] [phone] 05/15/2024 15:00 EST Telemedicine [facility] Gastroenterology - [address] [phone] Madhu Park MD PhD [address] [place] [address], [facility] 5 [place] [phone] 12/10/2024 11:30 EDT Office Visit [facility] Surgical Oncology - [address] [phone] [facility] PA-C [address] [place] [address], [facility] 2 [place] [phone] documented as of this encounter Visit Diagnoses Not on filedocumented in this encounter Care Teams Roast Master Relationship Specialty Start Date End Date None, Provider PCP - General 12/19/08 10/22/09 documented as of this encounter
--- OUTSIDE RECORDS SUMMARY | 2024-03-27 20:12 | XMS_ITS | Encounter Summary ---
Author Organization [facility] Address [address] [place] [address] Care Team Providers Care Newsperson Name Role Phone Unavailable Primary Care Provider Unavailabl e Encounter Details Date Type Department Care Team (Late st Contact Info) Description 12/19/2007 7:55 EDT Hospital Encounter [facility] [address] [place] [address] Clarice Murcia MD [address] [place] [phone] Social History Tobacco Use Types Packs/Day [...] Description 04/23/2024 9:30 EDT Appointment [facility] Endoscopy - [address] [phone] Marcellus Walsh MD 111 [facility], Level [address] [place] [phone] 05/01/2024 13:30 EDT Appointment [facility] Breast Imaging - [address] [phone] 05/15/2024 15:00 EST Telemedicine [facility] Gastroenterology - [address] [phone] Madhu Park MD PhD [address] [place] [address] 5 [place] [phone] 12/10/2024 11:30 EDT Office Visit [facility] Surgical Oncology - [address] [phone] [facility] PAPrabhaC [address] [place] [address], Level [address] [place] [phone] documented as of this encounter Visit Diagnoses Not on filedocumented in this encounter
--- OUTSIDE RECORDS SUMMARY | 2024-03-27 20:12 | XMS_ITS ---
Author Organization Unknown Address [address] [place] [phone] Phone Care Team Providers Care Cadd Drafter Name Role Phone LUCIEN ALEJO Attending Unavailable MARIN OLIVERA Primary Unavailable Social History Type Status Start Date End Date Code Code Syst em Smoking History Never smoker (Never Smoked) [id number] SNOMED CT Sex Female Hospital Discharge Instructions [...] Code Code Sys tem Idiopathic osteoarthritis 09/03/2021 [id number] SN OMED-CT Personal Care Team Section Performer Name Performer Role Active Date Inactive Da te
--- OUTSIDE RECORDS SUMMARY | 2024-03-27 20:12 | XMS_ITS | Encounter Summary ---
Author Organization [facility] Address [address] [place] [address] Care Team Providers Care Fitness Coach Name Role Phone None, Provider Primary Care Provider Unavailabl e Encounter Details Date Type Department Care Team (Late st Contact Info) Description 12/19/2007 Before PRISM Converted Visit (Maple) [facility] - Maple conversion [address] [place] [address] Clarice Murcia MD [address] [place] [phone] Social History Tobacco Use Types Packs/Day [...] Clarice Murcia MD - RAMSES Job ID: [id number] Doc ID: [id number] cc: MD Nicki Osborn MD documented in this encounter Plan of Treatment Upcoming Encounters Date Type Department Care Team (Late st Contact Info) Description 04/23/2024 9:30 EDT Appointment [facility] Endoscopy - [address] [phone] Marcellus Walsh MD [address] [place] [address] 5 [place] [phone] 05/01/2024 13:30 EDT Appointment [facility] Breast Imaging - [address] [phone] 05/15/2024 15:00 EST Telemedicine [facility] Gastroenterology - [address] [phone] Madhu Park MD PhD [address] [place] [phone] 12/10/2024 11:30 EDT Office Visit [facility] Surgical Oncology - [address] [phone] [facility], PA-C [address] [place] [address], [facility] 2 [place] [phone] documented as of this encounter Visit Diagnoses Not on filedocumented in this encounter Care Teams Fitness Coach Relationship Specialty Start Date End Date None, Provider PCP - General 12/19/08 10/22/09 documented as of this encounter
--- OUTSIDE RECORDS SUMMARY | 2024-03-27 20:12 | XMS_ITS | Encounter Summary ---
Author Organization [facility] Address [address] [place] [address] Care Team Providers Care Hide Dropper Name Role Phone None, Provider Primary Care Provider Unavailabl e Encounter Details Date Type Department Care Team (Latest Contact Info) Description 10/06/2009 22:06 EDT - 10/06/2009 22:08 EDT Hospital Encounter [facility] - Other [address] [place] [address] Clarice Ramesh PA-C [address] [place] [address] ,[address] [place] [address] Discharge Disposition: Home or Self Care Social [...] Description 04/23/2024 9:30 EDT Appointment [facility] - [facility] [address] [place], [place] 345[address] Marcellus Walsh MD 111 [facility], Level [address] [place] [address] 05/01/2024 13:30 EDT Appointment [facility] Breast Imaging - [address] [phone] 05/15/2024 15:00 EST Telemedicine [facility] Gastroenterology - [address] [phone] Madhu Park MD PhD [address] [place] [address], [facility] 5 [place] [phone] 12/10/2024 11:30 EDT Office Visit [facility] Surgical Oncology - [address] [phone] [facility] PA-C [address] [place] [address], [facility] 2 [place] [phone] documented as of this encounter Visit Diagnoses Not on filedocumented in this encounter Care Teams Hide Dropper Relationship Specialty Start Date End Date None, Provider PCP - General 12/19/08 10/22/09 documented as of this encounter
--- OUTSIDE RECORDS SUMMARY | 2024-03-27 20:12 | XMS_ITS | Encounter Summary ---
Author Organization [facility] Address [address] [place] [address] Care Team Providers Care Wireworker Supervisor Name Role Phone Unavailable Primary Care Provider Unavailabl e Encounter Details Date Type Department Care Team (Late st Contact Info) Description 12/19/2007 8:32 EDT - 12/19/2007 11:59 EDT Hospital Encounter [facility] [address] [place] [address] Clarice Murcia MD [address] [place] [phone] Discharge Disposition: Auto Discharge Social History Tobacco [...] Contact Info) Description 04/23/2024 9:30 EDT Appointment [facility] Endoscopy - [facility] [address] [place], [place] [phone] Marcellus Walsh MD 111 [facility], Level [address] [place] [phone] 05/01/2024 13:30 EDT Appointment [facility] Breast Imaging - [address] [phone] 05/15/2024 15:00 EST Telemedicine [facility] Gastroenterology - [facility] [address] [place] [address] Madhu Park MD PhD 111 [facility], Level [address] [place] [phone] 12/10/2024 11:30 EDT Office Visit [facility] Surgical Oncology - [facility] [address] [place], [place] [phone] [facility] PA-C 111 [facility], [facility] 2 [place] [phone] documented as of this encounter [...] ARNOLD, SANDHYA B ? Accession #: ? [id number] ? : ? 1960 (Age: 48) ??F ? Collect Date: ? 12/16/2008 ? Location: ? [facility] ? Receive Date: ? 12/16/2008 ? Provider: NICKI SIMPSON MD ? Copy to: ? Final Pathologic Diagnosis: ? Cervix, polyp, biopsy: ? - Benign endocervical polyp with squamous metaplasia. ? Document reviewed and electronically signed by: ? Star Beatty, MBChB ? Report ??Date: 12/17/2008 14:57 ? By the signature above, the attending physician certifies that he/she has ? personally conducted a gross and/or microscopic examination of the described ? specimens and rendered or confirmed the above diagnosis. ? Specimen(s) Received: ? Cervical polyp ? Clinical History: ? Cervical polyp ? Gross Description: ? Received in formalin labelled Arnold, Sandhya and cervical polyp is a ?? 0.3 x 0.2 x 0.1 cm, white to focally light red, slightly firm piece of tissue as well as a couple of small, red-tinged to white fragments of soft tissue. ??The ?? specimen is entirely submitted in one cassette. ??([facility] ? End of Report ? [facility] 12/16/2008 12/16/2008 14: 27 EDT Nicki Simpson MD PATHOLOGY OR DERABLES [facility] [address] [place] [address] * [facility] (12/19/2007 [...]
--- OUTSIDE RECORDS SUMMARY | 2024-03-27 20:12 | XMS_ITS | Encounter Summary ---
Author Organization [facility] Address [address] [place] [address] Care Team Providers Care Otr Flatbed Driver Name Role Phone Unavailable Primary Care Provider Unavailabl e Encounter Details Date Type Department Care Team (Late st Contact Info) Description 05/14/2005 9:[address] [facility] [address] [place] [address] Clarice Murcia MD [address] [place] [phone] Social History Tobacco Use Types Packs/Day [...] Info) Description 04/23/2024 9:30 EDT Appointment [facility] Endoscopy - [address] [phone] Marcellus Walsh MD 111 [facility] 5 [place] [phone] 05/01/2024 13:30 EDT Appointment [facility] Breast Imaging - [address] [phone] 05/15/2024 15:00 EST Telemedicine [facility] Gastroenterology - [address] [phone] Madhu Park MD PhD [address] [place] [phone] 12/10/2024 11:30 EDT Office Visit [facility] Surgical Oncology - [address] [phone] [facility] PA-C [address] [place] [address], [facility] 2 [place] [phone] documented as of this encounter Visit Diagnoses Not on filedocumented in this encounter
--- OUTSIDE RECORDS SUMMARY | 2024-03-27 20:12 | XMS_ITS ---
Author Organization [facility] Address [address] [place] [address] Care Team Providers Care Principal Java Software Engineer Name Role Phone Indy Champion MD Primary Care Provider Unavail anatoly Gannon CNM, NURSE RECEPTIONIST, Mar Unavailable REASON FOR VISIT New Appointment Request Encounters Encounter Location Date Provider Diagnosis [facility] [address] [place] [address] 02/15/2024 Mar Gannon Plan Of Treatment Next Appt Details Provider Name:Mar rousseau, 09/06/2024 01:00:00 PM, [address], [place], [address], Progress Notes * Ofelia BARRETThDOB: (63 yo F)Acc No.[id number]:02/15/2024 Patient:?Sandhya BARRETT :1960???Age:63 Y???Sex:Female Address:[address] [place] [address] [place], [address] * true * Date:? Generated for Printi ng/Faxing/eTransmitting on:?03/27/2024 08:12 PM EDT
--- OUTSIDE RECORDS SUMMARY | 2024-03-27 20:12 | XMS_ITS | Encounter Summary ---
Author Organization [facility] [place] [address] Care Team Providers Care Teletypewriter Installer Name Role Phone Unavailable Primary Care Provider Unavailabl e Encounter Details Date Type Department Care Team (Late st Contact Info) Description 02/28/2024 Interpretation Only [facility] in [address] [phone] Rocio Hendrix MD [address] [place] [address] [phone] Social History Tobacco Use Types Packs/Day Years [...] AM EDT) PT CLASS O RAD ADMITDTTM [id number] RAD PT RAD INFO [id number]^TARTAG ANH^ROCIO RAD EXAM DESC UABDLIM^US ABD LIMITED [...] unremarkable. Electronically signed by: Gianni Woodruff MD, [facility] ([phone]), at 02/28/2024 11:42 AM Thank you for letting us participate in the care of this patient. If you are a health care provider and have any questions regarding this report, please contact the number above. For patients who have questions, please contact the health after school caregiver that requested your imaging first. ?Gianni Woodruff Electronically Signed Final Report ?? 02/28/2024 11:48 am Narrative 02/28/2024 11:48 AM EDT Abdominal ? (Signed Final 02/28/2024 11:48 am) PATIENT INFO: ID #: ? [id number] ?: ??[birth year] (63 yrs)(F) Name: ? DINA BARRETT ? Visit Date: 02/28/2024 10:44 am PERFORMED BY: Attending: ?Kacy BABB, Gianni Enrique Performed By: ? Smooth RDMS, RVT, RTMarta Referred By: ?ROCIO HENDRIX Location: ? [facility] SERVICE(S) PROVIDED: UABDLIM - Abdominal Limited Survey Single ? 94407 Organ or Quadrant - [id number] INDICATIONS: Reason US Abdomen: ??ELEVATED LIVER ENZYMES [...] 02/28/2024 11:48 am) PATIENT INFO: ID #: [id number] : [birth year] (63 yrs)(F) Name: DINA BARRETT Visit Date: 02/28/2024 10:44 am PERFORMED BY: Attending: Gianni Woodruff MD Performed By: Smooth FRAZIER, RVT, RTMarta Referred By: ROCIO HENDRIX Location: [facility] SERVICE(S) PROVIDED: UABDLIM - Abdominal Limited Survey Single 80617 Organ or Quadrant - [id number] INDICATIONS: Reason US Abdomen: ELEVATED LIVER ENZYMES [...] unremarkable. Electronically signed by: Gianni Woodruff MD, [facility] ([phone]), at 02/28/2024 11:42 AM Thank you for letting us participate in the care of this patient. If you are a health care provider and have any questions regarding this report, please contact the number above. For patients who have questions, please contact the health after school caregiver that requested your imaging first. Gianni Woodruff Electronically Signed Final Report 02/28/2024 11:48 am Rocio Hendrix MD IMG US GEN ORDERABLE S documented in this encounter Visit Diagnoses Not on filedocumented in this encounter
--- OUTSIDE RECORDS SUMMARY | 2024-03-27 20:12 | XMS_ITS | Encounter Summary ---
Author Organization [facility] Address [address] [place] [address] Care Team Providers Care Quill Stripper Name Role Phone Unavailable Primary Care Provider Unavailabl e Encounter Details Date Type Department Care Team (Late st Contact Info) Description 08/05/2003 10:37 EST Hospital Encounter [facility] - Other [address] [place], [place] [phone] Agnieszka Simpson MD Social History Tobacco Use [...] 04/23/2024 9:30 EDT Appointment [facility] Endoscopy - [address] [phone] Marcellus Walsh MD 111 [facility], [facility], Level [address] [place] [phone] 05/01/2024 13:30 EDT Appointment [facility] Breast Imaging - [facility] [address] [place], [place] [phone] 05/15/2024 15:00 EST Telemedicine [facility] Gastroenterology - [address] 584351 Madhu Park MD PhD 111 [facility], Level [address] [place] [address] 12/10/2024 11:30 EDT Office Visit [facility] Surgical Oncology - [address] [address] [facility] PA-C [address] [place] [address], [facility] 2 [place] [address] documented as of this encounter [...] ? SANDHYA BARRETT ? Accession #: ? [id number] : ? 1960 (Age: 43) ??F ?Collect Date: ? 08/05/2003 Location: ? [facility] ? Receive Date: ? 08/07/2003 Provider: ?AGNIESZKA SIMPSON MD Copy to: ? Specimen/Source: ?ThinPrep Pap Test, Cervix/Endocervix Last Menstrual Period: ? 08/02/03 Treatment History: ? Cryotherapy: 1985 Other: ? [facility] - HPV testing requested [...] MD PATHOLOGY OR DERABLES Performing Organization Address City/State/[facility] Co de Phone Number [facility] [address] [place] [address] * SURGICAL PATHOLOGY (08/05/2003 0:00 EST) Pathology Report: SURGICAL PATHOLOGY REPORT Reports generated via electronic interface contain original data; however they are lacking the format of the original report. Caution should be taken when reading/interpreti ng unformatted reports. Name: ? SANDHYA BARRETT ? Accession #: ? [id number] ? : ? 1960 (Age: 43) ??F [...] is entirely submitted in one cassette. ??(Alma Rodrigues)/[facility] End of Report [facility] 08/05/2003 08/06/2003 8:3 1 EST Agnieszka Simpson MD PATHOLOGY OR DERABLES [facility] [address] [place] [address] documented in this encounter Visit Diagnoses Not on filedocumented in this encounter
--- OUTSIDE RECORDS SUMMARY | 2024-03-27 20:12 | XMS_ITS | Clinical Summary ---
Author Organization [facility] Address [facility] [place] [address] Care Team Providers Care Media Traffic Manager Name Role Phone Unavailable Primary Care Provider Unavailabl e Encounters Date Type Department Care Team Description 02/28/2024 Interpretation Only [facility] in [address] [phone] Rocio Hendrix MD from Last [...] AM EDT) PT CLASS O RAD ADMITDTTM [id number] RAD PT RAD INFO [id number]^TARMARCELINOG ANH^ROCIO RAD EXAM DESC UABDLIM^US ABD LIMITED ONE ORGAN^RIS RAD WORKSTATION ID [id number] [facility] Anatomical Region Laterality Modality Abdomen Ultrasound 02/28/2024 10:4 4 AM EDT Impressions 02/28/2024 11:48 AM EDT Impression: The liver is of normal overall size. There is a subtle diffuse heterogeneity of echotexture, indeterminate etiology. No measurable focal pathology demonstrated. Follow-up with MRI may be helpful in better evaluating hepatic parenchyma. Biliary tree elsewhere unremarkable. Thank you for letting us participate in the care of this patient. If you are a health care provider and have any questions regarding this report, please contact the number above. For patients who have questions, please contact the health residential child care counselor that requested your imaging first. ?Gianni Woodruff Electronically Signed Final Report ?? 02/28/2024 11:48 am Narrative 02/28/2024 11:48 AM EDT Abdominal ? (Signed Final 02/28/2024 11:48 am) PATIENT INFO: ID #: ? [id number] ?: ??[birth year] (63 yrs)(F) Name: ? DINA BARRETT ? Visit Date: 02/28/2024 10:44 am PERFORMED BY: Attending: ?Kacy BABB, Gianni Enrique Performed By: ? Smooth RDMS, RVT, RTMarta Referred By: ?ROCIO HILL Location: ? [facility] SERVICE(S) PROVIDED: UABDLIM - Abdominal Limited Survey Single ? 76961 Organ or Quadrant - [id number] INDICATIONS: Reason US Abdomen: ??ELEVATED LIVER ENZYMES [...] 02/28/2024 11:48 am) PATIENT INFO: ID #: [id number] : 60 (63 yrs)(F) Name: DINA BARRETT Visit Date: 02/28/2024 10:44 am PERFORMED BY: Attending: Gianni Woodruff MD Performed By: Smooth FRAZIER, MARYT, RTMarta Referred By: ROCIO HENDRIX Location: [facility] SERVICE(S) PROVIDED: UABDLIM - Abdominal Limited Survey Single 27629 Organ or Quadrant - [id number] INDICATIONS: Reason US Abdomen: ELEVATED LIVER ENZYMES [...] evaluating hepatic parenchyma. Biliary tree elsewhere unremarkable. Thank you for letting us participate in the care of this patient. If you are a health care provider and have any questions regarding this report, please contact the number above. For patients who have questions, please contact the health residential child care counselor that requested your imaging first. Gianni Woodruff Electronically Signed Final Report 02/28/2024 11:48 am Rocio Hendrix MD IMG US GEN ORDERABLE S from Last 3 Months
--- OUTSIDE RECORDS SUMMARY | 2024-03-27 20:12 | XMS_ITS | Encounter Summary ---
Author Organization [facility] Address [address] [place] [address] Care Team Providers Care Product Safety Officer Name Role Phone None, Provider Primary Care Provider Unavailabl e Encounter Details Date Type Department Care Team (Late st Contact Info) Description 01/13/2009 9:07 EDT - 01/13/2009 23:59 EDT Hospital Encounter [address] [address] Clarice Mrucia MD [address] [place] [phone] Discharge Disposition: Auto Discharge Social History Tobacco [...] Description 04/23/2024 9:30 EDT Appointment [facility] Endoscopy - [facility] [address] [place] [address] Marcellus Walsh MD 111 [facility], Level 5 [place] [phone] 05/01/2024 13:30 EDT Appointment [facility] Breast Imaging - [address] [address]391 05/15/2024 15:00 EST Telemedicine [facility] Gastroenterology - [address] 260571 Madhu Park MD PhD [address] [place] [address], [facility] 5 [place] [phone] 12/10/2024 11:30 EDT Office Visit [facility] Surgical Oncology - [address] [phone] Magnolia Blood PA-C [address] [place] [address], [facility] 2 [place] [phone] documented as of this encounter Visit Diagnoses Not on filedocumented in this encounter Care Teams Product Safety Officer Relationship Specialty Start Date End Date None, Provider PCP - General 12/19/08 10/22/09 documented as of this encounter
--- OUTSIDE RECORDS SUMMARY | 2024-03-27 20:12 | XMS_ITS ---
Author Organization [facility] Address [address] [place] [address] Care Team Providers Care Show Horse Driver Name Role Phone Indy Champion MD Primary Care Provider Unavail anatoly Gannon CNM, AYALA, Mar Unavailable Allergies No Known Allergies REASON FOR VISIT [...] 023 Encounters Encounter Location Date Provider Diagnosis [facility] [address], [address] [place] [address] 05/26/2023 aMr Gannon Encounter for gynecological examination (general) (routine) without abnormal findings Z01.419 and Postmenopausal atrophic vaginitis N95.2 Assessments Encounter Date Diagnosis (ICD Code) Assessment Notes Treat ment Notes Treatment Clinical Notes 05/26/2023 Encounter for gynecological examination (general) (routine) without abnormal findings (ICD-10 - Z01.419) Continue healthy habits. Discussed health screening recommendations. Mammogram guidelines discussed. 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 [...] recommendations. Mammogram guidelines discussed. 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 [...] AE Provider Name:Mar rousseau, 09/06/2024 01:00:00 PM, [address] [facility], [address], [place], [address], Progress Notes * Ofelia BARRETThDOB: 1 (62 yo F)Acc No.[id number]:05/26/2023 Progress notes Patient:?Sandhya Barrett Provider:?Mar Gannon, SCHOOL LUNCH MANAGER :1960???Age:62 Y???Sex:Female D ate:05/26/2023 Address:[address] [place], [place] [id number] Pcp:Indy Champion MD Subjective: * Chief Complaints: * ???AE * HPI: ???RECORDS MANAGEMENT ASSISTANT:? Sandhya is a 62 y.o. patient who presents for a preventative RECORDS MANAGEMENT ASSISTANT exam. ?Last seen 02/02/2022 by me as a new patient for preventive RECORDS MANAGEMENT ASSISTANT exam. ?No specific concerns today. ?No systemic [...] ?Never had DXA. * ROS:?Overall Review of Systems:?no?Cardiology.?no?Dermatology.?Carbon Sequestration Plant Operator?yes,see HPI.?no?Breast.?no?Hematology.?no?Allergies.?no?Endocrinology.?no?Gastroenterolo gy.?no?General.?no?Urologic.?no?HEENT.?no?Musculoskeletal.?Neurology?yes,?migrai ne-stable.?no?Psychiat ry.?no?Respiratory.? * Medical History:? 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 * OB History:?GP?:?2,?P lindsay?2.? * Surgical History:?Mohs surge ry/2009Dermoid cyst removal 1988C section x 2 1995, 1997R Total Hip Replacement 01/01/2022Mohs surgery 05/2022 * Hospitalization/Major Diagno stic Procedure:?Denies Past Hospitalization * Family History:?Father: dahsawn coombs (possibly type 1).?Mother: lung cancer.?Siblings: sister: [...] Wt:128, BMI :20.97, BP sittin/70. * Examination: ???RECORDS MANAGEMENT ASSISTANT: ?GENERAL:?Well-developed, well-nourished, no acute distress, alert and [...] APRN Date: ?05/26/2023 Generated for Awilda omalley/Waldo/eTransmitting on:?03/27/2024 08:12 PM EDT History and Physical Notes * Examination Category Sub-Category Detail Notes RECORDS MANAGEMENT ASSISTANT CERVIX: posterior; no ce rvical movement tenderness; [...]
--- OUTSIDE RECORDS SUMMARY | 2024-03-27 20:12 | XMS_ITS | Patient Health Record ---
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) Active confirmed Problem 904752243283054 Primary osteoarthritis of right hip (M16.11) Active confirmed Problem [id number] Plantar fascii tis of right foot (M72.2) Active confirmed Vital Signs Heart Rate 64 /min 08/31/2023 Temperature 97.9 degrees Fahrenheit 08/31/2023 Blood pressure diastolic 68 mmHg 08/31/2023 Height 66 in 08/31/2023 Blood pressure systolic 120 mmHg 08/31/2023 Encounters Encounter Location Date Provider Diagnosis [facility] [address] [place] [id number] 08/31/2023 JOSELIN FUNES Pain of right breast [...] Insured Coverage Start Date Coverage End Date [facility] [address] [place] [phone] [id number] Sandhya Lomas Self - patient is the insured Medical (General) History Medical History History ICD Code History of basal cell carcinoma- face an d right vázquez Actinic keratoses Menopause Recurrent herpes labialis Surgical History Surgery Date(Month/Year) Dermoid cyst removal Age 27
--- OUTSIDE RECORDS SUMMARY | 2024-03-27 20:12 | XMS_ITS | Encounter Summary ---
Author Organization [facility] Address [address] [place] [address] Care Team Providers Care Medical Payment Poster Name Role Phone None, Provider Primary Care Provider Unavailabl e Encounter Details Date Type Department Care Team (Late st Contact Info) Description 05/13/2009 Orders Only [facility] Surgical Oncology - [address] [phone] Josh Daniels MD [address] [phone] Social History Tobacco Use Types Packs/Day Years Used Date Smoking Tobacco: Never Assessed Sex and Gender Information Value Date Recorded Sex Assigned at Not on file Gender Identity Female 05/16/2019 10:23 EST Sexual Orientation Not on file documented as of this encounter Plan of Treatment Upcoming Encounters Date Type Department Care Team (Late st Contact Info) Description 04/23/2024 9:30 EDT Appointment [facility] Endoscopy - [facility] [address] [place], [place] [address] Marcellus Walsh MD 111 [facility], Level 5 [place] [phone] 05/01/2024 13:30 EDT Appointment [facility] Breast Imaging - [address] [address]591 05/15/2024 15:00 EST Telemedicine [facility] Gastroenterology - [facility] [address] [place], [place] [address] Madhu Park MD PhD 111 [facility], Level [address] [place] [phone] 12/10/2024 11:30 EDT Office Visit [facility] Surgical Oncology - [facility] [address] [place], [place] [phone] Magnolia Blood PA-C 111 [facility], Level 2 [place] [phone] documented as of this encounter Procedures Procedure Name Priority Date/Time Associated Diagnosis Comments [facility] BREAST-BREAST CARE CENTER ONLY 05/13/2009 16:41 EST documented in this encounter Results * [facility] BREAST (05/13/2009 16:41 EST) Anatomical Region Laterality Modality Other 05/13/2009 16:4 1 EST Narrative 05/13/2009 16:41 EST See Notes Tab. Procedure Note 05/13/2009 See Notes Tab. Josh Daniels MD MSc IMG US ORDERABLES documented in this encounter Visit Diagnoses Not on filedocumented in this encounter Care Teams Medical Payment Poster Relationship Specialty Start Date End Date None, Provider PCP - General 12/19/08 10/22/09 documented as of this encounter
--- OUTSIDE RECORDS SUMMARY | 2024-03-27 20:12 | XMS_ITS | Encounter Summary ---
Author Organization [facility] Address [address] [place] [address] Care Team Providers Care Hair Or Beauty Salon Assistant Name Role Phone Unknown, Provider MD Primary Care Provider None, Provider Primary Care Provider Unavailabl e Encounter Details Date Type Department Care Team (Late st Contact Info) Description 08/10/2004 Results Only [facility] - Maple conversion [address] [place] [address] Agnieszka Simpson MD Social History Tobacco Use [...] Contact Info) Description 04/23/2024 9:30 EDT Appointment [facility] Endoscopy - [address] [address]14[address] Marcellus Walsh MD 111 [facility], Level 5 [place] [phone] 05/01/2024 13:30 EDT Appointment [facility] Breast Imaging - [address] [address] 05/15/2024 15:00 EST Telemedicine [facility] Gastroenterology - [address] 9335[address] Madhu Park MD PhD 111 [facility], [address] [place] [address] 12/10/2024 11:30 EDT Office Visit [facility] Surgical Oncology - [facility] [address] [place], [place] [phone] Magnolia Blood, PA-C 111 [facility], [address] [place] [address] documented as of this encounter [...] ? SANDHYA BARRETT ? Accession #: ? [id number] : ? 1960 (Age: 44) ??F ?Collect [...] reviewed and electronically signed by: ? SMITH Rizzo(ASCP) ? Report Date: ??08/14/2004 11:00 End of Report KATHERYN DALTON 08/10/2004 08/11/2004 Agnieszka Simpson MD PATHOLOGY OR DERABLES Performing Organization Address City/State/[facility] Co de Phone Number KATHERYN DALTON [address] [place] [address] documented in this encounter Visit Diagnoses Not on filedocumented in this encounter Care Teams Hair Or Beauty Salon Assistant Relationship Specialty Start Date End Date Unknown, Provider, PCP - General 10/23/09 07/08/10 None, Provider PCP - General 12/19/08 10/22/09 documented as of this encounter
--- OUTSIDE RECORDS SUMMARY | 2024-03-27 20:12 | XMS_ITS | Encounter Summary ---
Author Organization [facility] Address [address] [place] [address] Care Team Providers Care Automatic Machines Supervisor Name Role Phone Unavailable Primary Care Provider Unavailabl e Encounter Details Date Type Department Care Team (Latest Contact Info) Description 12/13/2006 8:35 EDT - 12/13/2006 11:59 EDT Hospital Encounter [address] [address] Nicki Dover MD Discharge Disposition: Auto Discharge [...] 9:30 EDT Appointment [facility] Endoscopy - [facility] [address] [place] [address] Marcellus Walsh MD 111 [facility], Level 5 [place] [address] 05/01/2024 13:30 EDT Appointment [facility] Breast Imaging - [address] [address] 05/15/2024 15:00 EST Telemedicine [facility] Gastroenterology - [facility] [address] [place] [address] Madhu Park MD PhD 111 [facility], Level 5 [place] [address] 12/10/2024 11:30 EDT Office Visit [facility] Surgical Oncology - [facility] [address] [place], [place] [phone] Magnolia Blood PA-C 111 [facility], Level 2 [place] [address] documented as of this encounter [...]
--- OUTSIDE RECORDS SUMMARY | 2024-03-27 20:12 | XMS_ITS ---
Author Organization [facility] Address [address] [place], [place] [id number] Care Team Providers Care Call Center Specialist Name Role Phone JOSELIN CHAMPION Primary Care Provider [phone] Allergies No Known Allergies REASON FOR VISIT [...] 08/31/2023 Encounters Encounter Location Date Provider Diagnosis [facility] [address] [place], [place] [id number] 08/31/2023 JOSELIN CHAMPION Pain of right breast [...] Sandhya BARRETT BDOB: [birth year] (63 yo F)Acc No.[id number]:08/31/2023 Patient:?Sandhya BARRETT Provider:?Joselin Champion MD :1960???Age:63 Y???Sex:Female [...] not feel sick. * Medical History:? * Clinical Appeals Reviewer History:?Menstruation?menopause 2019.?Pap smears?12/14/2017- normal Pap, negative HPV.?Mammograms?08/2021 [...] Up:?prn * Billing Information: * Visit Code:? 58936 Office Visit, Est Pt., Level 3. * Procedure Codes:? * Sign off status: Completed true * Provider:?Joselin Champion MD Date:?08/31 Generated for Awilda omalley/Waldo/eTransmitting on:?03/27/2024 08:11 PM EDT History and Physical Notes * Examination Category Sub-Category Detail Notes General Examination GENERAL APPEARANCE: in no ac [place] distress, well developed, well nourished BREASTS: Right breast without dominant mass, no nipple discharge, no erythema, no firmness. Minimally tender right medial breast at the 2 o'clock position without mass. No axillary lymphadenopathy. Left breast symmetric to the right no axillary lymphadenopathy. No nipple discharge. Nontender.
--- OUTSIDE RECORDS SUMMARY | 2024-03-27 20:12 | XMS_ITS | Encounter Summary ---
Author Organization [facility] Address [address] [place] [address] Care Team Providers Care Slag Worker Name Role Phone None, Provider Primary Care Provider Unavailabl e Encounter Details Date Type Department Care Team (Late st Contact Info) Description 05/20/2006 Before PRISM Converted Visit (Maple) [facility] - Maple conversion [address] [place] [address] Clarice Murcia MD [address] [place] [phone] Social History Tobacco Use Types Packs/Day Years Used Date Smoking Tobacco: Never Assessed Sex and Gender Information Value Date Recorded Sex Assigned at Not on file Gender Identity Female 05/16/2019 10:23 EST Sexual Orientation Not on file documented as of this encounter Progress Notes * Clarice Murcia MD - 07/17/2009 1330 EST DIVISION OF SURGICAL ONCOLOGY -[facility]AST [facility] PROGRESS/FOLLOWUP NOTE - 05/20/2006 S: [...] Signed by Clarice Murcia MD 05/27/2006 11:59 Basil Arana MD Clarice Murcia MD - Michael Murcia MD P - kkb Job ID: [id number] Document ID: [id number] cc: MD Nicki Osborn MD documented in this encounter Plan of Treatment Upcoming Encounters Date Type Department Care Team (Late st Contact Info) Description 04/23/2024 9:30 EDT Appointment [facility] Endoscopy - [address] [address] Marcellus Walsh MD [address] [place] [address], Level [address] [place] [phone] 05/01/2024 13:30 EDT Appointment [facility] Breast Imaging - [address] [address]684[address] 05/15/2024 15:00 EST Telemedicine [facility] Gastroenterology - [address] [phone] Madhu Park MD PhD 111 [facility], Level 5 [place] [phone] 12/10/2024 11:30 EDT Office Visit [facility] Surgical Oncology - [facility] [address] [place], [place] [phone] Magnolia Blood, PA-C 111 [facility], Level 2 [place] [phone] documented as of this encounter Visit Diagnoses Not on filedocumented in this encounter Care Teams Slag Worker Relationship Specialty Start Date End Date None, Provider PCP - General 12/19/08 10/22/09 documented as of this encounter
--- OUTSIDE RECORDS SUMMARY | 2024-03-27 20:12 | XMS_ITS | Encounter Summary ---
Author Organization [facility] Address [address] [place] [address] Care Team Providers Care Communications Department Chairperson Name Role Phone Unavailable Primary Care Provider Unavailabl e Encounter Details Date Type Department Care Team (Latest Contact Info) Description 10/18/2005 7:47 EDT - 10/18/2005 11:[address] [facility] - Other [address] [place] [address] Nicki Dover MD Discharge Disposition: Home or [...] EDT Appointment [facility] Endoscopy - [facility] [address] [place] [address] Marcellus Walsh MD 111 [facility], Level 5 [place] [phone] 05/01/2024 13:[address] [facility] Breast Imaging - [address] [address] 05/15/2024 15:[address] [facility] Gastroenterology - [facility] [address] [place], [place] [phone] Madhu Park MD PhD 111 [facility], [facility] 5 [place] [address] 12/10/2024 11:[address] [facility] Surgical Oncology - [facility] [address] [place], [place] [phone] Magnolia Blood PA-C 111 [facility], Level [address] [place] [phone] documented as of this encounter Visit Diagnoses Not on filedocumented in this encounter
--- OUTSIDE RECORDS SUMMARY | 2024-03-27 20:12 | XMS_ITS | Encounter Summary ---
Author Organization [facility] Address [address] [place] [address] Care Team Providers Care Chopper Feeder Name Role Phone Unknown, Provider MD Primary Care Provider None, Provider Primary Care Provider Unavailabl e Encounter Details Date Type Department Care Team (Late st Contact Info) Description 11/28/2006 Results Only [facility] - Maple conversion [address] [place] [address] Agnieszka Simpson MD Social History Tobacco Use [...] Description 04/23/2024 9:30 EDT Appointment [facility] Endoscopy - [address] [address] Marcellus Walsh MD 111 [facility], Level 5 [place] [phone] 05/01/2024 13:30 EDT Appointment [facility] Breast Imaging - [address] [address]32[address] 05/15/2024 15:00 EST Telemedicine [facility] Gastroenterology - [address] [address]97[address] Madhu Park MD PhD 111 [facility], Level [address] [place] [address] 12/10/2024 11:30 EDT Office Visit [facility] Surgical Oncology - [facility] [address] [place], [place] [phone] Magnolia Blood PA-C 111 [facility], Level 2 [place] [address] documented as of this encounter [...] [facility] Report Status Final [id number] [facility] 11/28/2006 7:54 EDT 12/01/2006 7:54 EDT Agnieszka Simpson MD MICROBIOLOGY - GENERAL ORDERABLES [facility] [address] [place] [address] * CYTOPATHOLOGY (11/28/2006 0:00 EDT) Pathology Report: CYTOPATHOLOGY REPORT Reports generated via electronic interface contain original data; however they are lacking the format of the original report. Caution should be taken when reading/interpreti ng unformatted reports. Name: ? SANDHYA BARRETT ? Accession #: ? [id number] : ? 1960 (Age: 46) ??F ?Collect Date: ? 11/28/2006 Location: ? [facility] ? Receive Date: ? 11/28/2006 Provider: ?AGNIESZKA SIMPSON MD Copy to: ? Specimen/Source: ?ThinPrep Pap Test, Cervix/Endocervix, processed on [employer] ThinPrep Imaging System, with manual evaluation Last Menstrual Period: ? 11/14/06 Other: ? Additional clinical information: No Tzone 2006 HPVDX - HPV testing requested regardless of [...] MD PATHOLOGY OR DERABLES KATHERYN DALTON [address] [place] [address] documented in this encounter Visit Diagnoses Not on filedocumented in this encounter Care Teams Chopper Feeder Relationship Specialty Start Date End Date Unknown, Provider, PCP - General 10/23/09 07/08/10 None, Provider PCP - General 12/19/08 10/22/09 documented as of this encounter
--- OUTSIDE RECORDS SUMMARY | 2024-03-27 20:12 | XMS_ITS | Encounter Summary ---
Author Organization [facility] Address [address] [place] [address] Care Team Providers Care Automotive Mechanical Engineer Name Role Phone None, Provider Primary Care Provider Unavailabl e Encounter Details Date Type Department Care Team (Late st Contact Info) Description 05/20/2009 7:50 EST - 05/20/2009 23:59 EST Hospital Encounter [facility] [address] [place] [address] Josh Daniels MD MSc [address] [place] [phone] Discharge Disposition: Auto Discharge Social History Tobacco [...] Description 04/23/2024 9:30 EDT Appointment [facility] Endoscopy - [facility] [address] [place] [address] Marcellus Walsh MD 111 [facility], Level [address] [place] [phone] 05/01/2024 13:30 EDT Appointment [facility] Breast Imaging - [address] [address] 05/15/2024 15:00 EST Telemedicine [facility] Gastroenterology - [address] [phone] Madhu Park MD PhD [address] [place] [address], [facility] [address] [place] [phone] 12/10/2024 11:30 EDT Office Visit [facility] Surgical Oncology - [address] [phone] Magnolia Blood PA-C [address] [place] [address], [facility] [address] [place] [address] documented as of this encounter Visit Diagnoses Not on filedocumented in this encounter Care Teams Automotive Mechanical Engineer Relationship Specialty Start Date End Date None, Provider PCP - General 12/19/08 10/22/09 documented as of this encounter
--- OUTSIDE RECORDS SUMMARY | 2024-03-27 20:12 | XMS_ITS | Encounter Summary ---
Author Organization [facility] Address [address] [place] [address] Care Team Providers Care Size Stamper Name Role Phone Unavailable Primary Care Provider Unavailabl e Encounter Details Date Type Department Care Team (Late st Contact Info) Description 11/16/2005 10:01 EDT - 11/16/2005 11:59 EDT Hospital Encounter [address] [address] Clarice Murcia MD [address] [place] [phone] Discharge Disposition: Auto Discharge Social History Tobacco [...] Info) Description 04/23/2024 9:30 EDT Appointment [facility] Endoscopy - [facility] [address] [place] [address] Marcellus Walsh MD 111 [facility], Level [address] [place] [phone] 05/01/2024 13:30 EDT Appointment [facility] Breast Imaging - [address] [address] 05/15/2024 15:00 EST Telemedicine [facility] Gastroenterology - [facility] [address] [place], [place] [address] Madhu Park MD PhD 111 [facility], Level [address] [place] [phone] 12/10/2024 11:30 EDT Office Visit [facility] Surgical Oncology - [facility] [address] [place], [place] [phone] Magnolia Blood PA-C 111 [facility], [facility] 2 [place] [address] documented as of this encounter [...]
--- OUTSIDE RECORDS SUMMARY | 2024-03-27 20:12 | XMS_ITS | Encounter Summary ---
Author Organization [facility] Address [address] [place] [address] Care Team Providers Care Rn Care Transition Name Role Phone None, Provider Primary Care Provider Unavailabl e Encounter Details Date Type Department Care Team (Late st Contact Info) Description 10/06/2009 Results Only [facility] Laboratory Services - [facility] ([facility]) [address], [place] [phone] Dashawn Ramesh PA-C [address] [place] [address] ,[address] [place], [place] [phone] Social History Tobacco Use Types Packs/Day Years Used Date Smoking Tobacco: Never Assessed Sex and Gender Information Value Date Recorded Sex Assigned at Not on file Gender Identity Female 05/16/2019 10:23 EST Sexual Orientation Not on file documented as of this encounter Plan of Treatment Upcoming Encounters Date Type Department Care Team (Late st Contact Info) Description 04/23/2024 9:30 EDT Appointment [facility] Endoscopy - [facility] [address], [place] [address] Marcellus Walsh MD 111 [facility], Level 5 [place] [phone] 05/01/2024 13:30 EDT Appointment [facility] Breast Imaging - [address] [address] 05/15/2024 15:00 EST Telemedicine [facility] Gastroenterology - [facility] [address] [place] [address] Madhu Park MD PhD 111 [facility], [address] 5 [place] [phone] 12/10/2024 11:30 EDT Office Visit [facility] Surgical Oncology - [address] [phone] [facility] P[facility] 111 [facility], [facility] 2 [place] [address] documented as of this encounter [...] ng unformatted reports. ? Name: ? SANDHYA LOMAS ? Accession #: ? [id number] ? : ? 1960 (Age: 49) ??F ? Collect Date: ? 10/06/2009 ? Location: ? [facility] ? Receive Date: ? 10/06/2009 ? Provider: DASHAWN RAMESH PA ? Copy to: ? Final Pathologic Diagnosis: ? Skin of shinto, right, shave biopsy: ? 1. ?Basal cell [...] some of the islands and stroma. ??(Dr. Ulrich)/ljn ? Document reviewed and electronically signed by: ? Sejal Ulrich MD ? Report ??Date: 10/08/2009 13:11 ? By the signature above, the attending physician certifies that he/she has ? personally conducted a gross and/or microscopic examination of the described ? specimens and rendered or confirmed the above diagnosis. ? Specimen(s) Received: ? Shave right shinto ? Clinical History: ? Has 1 yr f/up; BCC; would refer Mohs and we already discussed this ? possibility; clinical diagnosis code: 238.2 ? Gross Description: ? Received in formalin labelled Sandhya Lomas and right shinto is a 0.3 x 0.3 x 0.1 cm shave biopsy of brown, crusted skin. ??The specimen is submitted ? intact in a single cassette. ??(Wilder Figueredo)/niyah ? End of Report ? [facility] 10/06/2009 10/06/2009 19: 27 EDT Dashawn Ramesh PA-C PATHOLOGY ORD ERABLES [facility] [address] [place] [address] documented in this encounter Visit Diagnoses Not on filedocumented in this encounter Care Teams Rn Care Transition Relationship Specialty Start Date End Date None, Provider PCP - General 12/19/08 10/22/09 documented as of this encounter
--- OUTSIDE RECORDS SUMMARY | 2024-03-27 20:12 | XMS_ITS | Encounter Summary ---
Author Organization [facility] Address [address] [place] [address] Care Team Providers Care Car Unloader Helper Name Role Phone Unknown, Provider MD Primary Care Provider None, Provider Primary Care Provider Unavailabl e Encounter Details Date Type Department Care Team (Late st Contact Info) Description 10/18/2005 Results Only [facility] - Maple conversion [address] [place] [address] Agnieszka Simpson MD Social History Tobacco Use [...] [facility] - [address] [phone] Marcellus Walsh MD 111 [facility], Level 5 [place] [phone] 05/01/2024 13:30 EDT Appointment [facility] Breast Imaging - [address] 8[address] 05/15/2024 15:00 EST Telemedicine [facility] Gastroenterology - [address] [phone] Madhu Park MD PhD 111 [facility], [address] [place] [address] 12/10/2024 11:30 EDT Office Visit [facility] Surgical Oncology - [facility] [address] [place], [place] [phone] [facility], PA-C 111 [facility], [address] [place] [address] documented as of this encounter [...] ? SANDHYA BARRETT ? Accession #: ? [id number] : ? 1960 (Age: 45) ??F ?Collect Date: ? 10/18/2005 Location: ? [facility] ? Receive Date: ? 10/19/2005 Provider: ?AGNIESZKA SIMPSON MD Copy to: ? Specimen/Source: ?ThinPrep Pap Test, Cervix/Endocervix, processed on [employer] ThinPrep Imaging System, with manual evaluation Last [...] MD PATHOLOGY OR DERABLES Performing Organization Address City/State/[facility] Co de Phone Number [facility] [address] [place] [address] documented in this encounter Visit Diagnoses Not on filedocumented in this encounter Care Teams Car Unloader Helper Relationship Specialty Start Date End Date Unknown, Provider, PCP - General 10/23/09 07/08/10 None, Provider PCP - General 12/19/08 10/22/09 documented as of this encounter
--- OUTSIDE RECORDS SUMMARY | 2024-03-27 20:12 | XMS_ITS ---
Author Organization [facility] Address [address] [place] [address], [address] [place] [address] Care Team Providers Care Mat Machine Operator Name Role Phone Akira BABB, Indy Primary Care Provider Leatha Gannon CNM, APRN, Mar Unavailable [phone] REASON FOR VISIT AE Encounters Encounter Location Date Provider Diagnosis [facility] [address] [facility], [address] [place] [address] 04/12/2023 Mar Gannon Plan Of Treatment Next Appt Details Provider Name:Mar rousseau, 09/06/2024 01:00:00 PM, [address] [place] [address], [address], [place], [address], Progress Notes * Ofelia BARRETThDOB: (63 yo F)Acc No.[id number]:04/12/2023 Progress notes Patient:?Sandhya BARRETT Provider:?Mar Gannon APRN :1960???Age:62 Y???Sex:Female D ate:04/12/2023 Address:[facility] [address], [place], [place] Pcp:Indy Champion MD Subjective: * Chief Complaints: * ???1. AE. * Medical History:? Objective: * Vitals:? Assessment: Plan: * Treatment: * * Electronic signature of Luz Gannon CNM, APRN on 03/27/2024 at 08:12 PM EDT Sign off status: Pending * Provider:?Mar Gannon APRN Date: ?04/12/2023 Generated for Awilda omalley/Waldo/Mylene on:?03/27/2024 08:12 PM EDT
--- OUTSIDE RECORDS SUMMARY | 2024-03-27 20:12 | XMS_ITS ---
Author Organization Unknown Address [address] [place] [phone] Phone Care Team Providers Care Spring Winder Name Role Phone MARNI OLIVERA Attending Unavailable Results COMPREHENSIVE METABOLIC PANE L (CMP) - Collect Date/Time: 07/29/2021 07:30 [facility] ID: [id number] [address] [place] [address], [address] LOINC: 31654-7 Test Value Unit Reference Range Code Code [...] H=34 2028-9 LOINC ANION GAP 6.5 mmol/L 75153-9 LOINC CALCIUM SERUM 8.8 mg/dL L=8.2 H=10.2 82008-2 LOINC BILIRUBIN TOTAL 0.7 mg/dL L=0.0 H=1.3 1975-2 LOINC ALK. PHOS. 82 U/L L=46 H=116 6768-6 LOINC SGOT (AST) 44 U/L L=15 H=37 1920-8 LOINC H SGPT (ALT) 54 U/L L=12 H=78 1742-6 LOINC TOTAL PROTEIN 6.6 gm/dL L=6.0 H=8.0 2885-2 LOINC ALBUMIN 3.8 gm/dL L=3.4 H=5.0 1751-7 LOINC AGE 61 years eGFR (non-Afr.Amer.) 102 mL/min 63317-6 LOINC eGFR (Afr-Czech) > 120 mL/min 63776-9 LOINC LIPID PANEL* - Collect Date/ Time: 07/29/2021 07:30 [facility] ID: [id number] [address] [place], [place], [id number] LOINC: Test Value Unit Reference Range Code Code System Flag FASTING STATUS: FASTING CHOLESTEROL 170 mg/dL L=0 H=200 2093-3 LOINC TRIGLYCERIDES 37 mg/dL L=57 H=256 2571-8 LOINC L HDL 89 mg/dL L=38 H=92 2085-9 LOINC non-HDL-C 81 mg/dL L=0 H=160 58083-4 LOINC LDL (CALC) 74 mg/dL L=0 H=130 48595-1 LOINC % HDL 52.4 % Chol/HDL Ratio 1.9 L=0.0 H=4.4 9830-1 LOINC CHD Relative Risk 0.4 x Avg L=0.0 H=1.0 LDL/HDL Ratio 0.8 L=0.0 H=3.2 20720-1 LOINC CHD Relative Risk. 0.2 x Avg L=0.0 H=1.0 CBC W/ DIFFERENTIAL* - Colle ct Date/Time: 07/29/2021 07:30 [facility] ID: [id number] [address] [place] [address], [address] LOINC: 97148-6 Test Value Unit Reference Range Code Code System Flag WBC 4.19 th/cmm L=5.00 H=10.00 6690-2 LOINC L NEUT % 42.4 % L=40.0 H=80.0 LYMPH % 43.2 % L=10.0 H=50.0 MONO % 9.3 % L=2.0 H=12.0 20179-8 LOINC EOS % 4.1 % L=0.0 H=8.0 BASO % 1.0 % L=0.0 H=3.0 IG % 0.0 % L=0.0 H=1.1 2514-8 LOINC NRBC % 0.0 % L=0.0 H=0.0 75834-3 LOINC NEUT abs count 1.8 th/cmm L=1.6 H=8.4 751-8 LOINC LYMPH abs count 1.8 th/cmm L=1.5 H=4.0 731-0 LOINC MONO abs count 0.4 th/cmm L=0.2 H=1.0 742-7 LOINC EOS abs count 0.2 th/cmm L=0.0 H=0.5 711-2 LOINC BASO abs count 0.0 th/cmm L=0.0 H=0.2 704-7 LOINC IG abs count 0.0 th/cmm L=0.0 H=0.1 82845-0 LOINC NRBC abs count 0.0 mil/cmm L=0.0 H=0.0 71905-1 LOINC RBC 3.80 mil/cmm L=3.90 H=5.40 789-8 [...] em Smoking History Never smoker (Never Smoked) [id number] SNOMED CT Sex Female Hospital Discharge Instructions [...] Code Sys tem Adult health examination 07/29/2021 [id number] [facility] MED-CT Personal Care Team Section Performer Name Performer Role Active Date Inactive Da te
--- OUTSIDE RECORDS SUMMARY | 2024-03-27 20:12 | XMS_ITS | Encounter Summary ---
Author Organization [facility] Address [address] [place] [address] Care Team Providers Care Washroom Attendant Name Role Phone Unavailable Primary Care Provider Unavailabl e Encounter Details Date Type Department Care Team (Latest Contact Info) Description 12/16/2008 10:34 EDT - 12/16/2008 10:35 EDT Hospital Encounter [facility] - Other [address] [place] [address] Nicki Dover MD Discharge Disposition: Home or [...] Appointment [facility] Endoscopy - [facility] [address] [place], [place] [address] Marcellus Walsh MD 111 [facility], Level [address] [place] [phone] 05/01/2024 13:30 EDT Appointment [facility] Breast Imaging - [address] [address] 05/15/2024 15:00 EST Telemedicine [facility] Gastroenterology - [facility] [address] [place], [place] [phone] Madhu Park MD PhD 111 [facility], [facility] 5 [place] [address] 12/10/2024 11:30 EDT Office Visit [facility] Surgical Oncology - [facility] [address] [place], [place] [phone] [facility] PA-C 111 [facility], [address] [place] [phone] documented as of this encounter Visit Diagnoses Not on filedocumented in this encounter
--- OUTSIDE RECORDS SUMMARY | 2024-03-27 20:12 | XMS_ITS | Encounter Summary ---
Author Organization [facility] Address [address] [place] [address] Care Team Providers Care Practice Coordinator Name Role Phone None, Provider Primary Care Provider Unavailabl e Encounter Details Date Type Department Care Team (Late st Contact Info) Description 05/20/2009 Orders Only [facility] Surgical Oncology - [address] [phone] Josh Daniels MD [address] [phone] Social History Tobacco Use Types Packs/Day Years Used Date Smoking Tobacco: Never Assessed Sex and Gender Information Value Date Recorded Sex Assigned at Not on file Gender Identity Female 05/16/2019 10:23 EST Sexual Orientation Not on file documented as of this encounter Plan of Treatment Upcoming Encounters Date Type Department Care Team (Late st Contact Info) Description 04/23/2024 9:30 EDT Appointment [facility] Endoscopy - [facility] [address] [place], [place] [address] Marcellus Walsh MD 111 [facility], [address] [place] [phone] 05/01/2024 13:30 EDT Appointment [facility] Breast Imaging - [address] [address] 05/15/2024 15:00 EST Telemedicine [facility] Gastroenterology - [facility] [address] [place], [place] [address] Madhu Park MD PhD 111 [facility], [address] [place] [phone] 12/10/2024 11:30 EDT Office Visit [facility] Surgical Oncology - [facility] [address] [place], [place] [phone] [facility] PA-C 111 [facility], [facility] 2 [place] [phone] documented as of this encounter Procedures Procedure [...] Daniels. Comparison: Bilateral breast ultrasound at the [facility] 05/13/2009 and 12/19/2007, bilateral mammography 01/13/2009, [...] were discussed with the patient by the heating and ventilating tender at the time of the examination. Overall [...] Daniels. Comparison: Bilateral breast ultrasound at the [facility] 05/13/2009 and 12/19/2007, bilateral mammography 01/13/2009, [...] were discussed with the patient by the heating and ventilating tender at the time of the examination. Overall [...] on filedocumented in this encounter Care Teams Practice Coordinator Relationship Specialty Start Date End Date None, Provider PCP - General 12/19/08 10/22/09 documented as of this encounter
--- OUTSIDE RECORDS SUMMARY | 2024-03-27 20:12 | XMS_ITS | Encounter Summary ---
Author Organization [facility] Address [address] [place] [address] Care Team Providers Care Quotation Checker Name Role Phone Unavailable Primary Care Provider Unavailabl e Encounter Details Date Type Department Care Team (Latest Contact Info) Description 09/02/2003 10:29 EST - 09/02/2003 11:59 EST Hospital Encounter [facility] - Maple conversion [address] [place] [address] Nicki Simpson MD Discharge Disposition: Auto Discharge Social [...] [facility] Endoscopy - [facility] [address] [place] [address] Marcellus Walsh MD 111 [facility], Level [address] [place] [address] 05/01/2024 13:30 EDT Appointment [facility] Breast Imaging - [address] [address] 05/15/2024 15:00 EST Telemedicine [facility] Gastroenterology - [facility] [address] [place] [address] Madhu Park MD PhD 111 [facility], [address] [place] [address] 12/10/2024 11:30 EDT Office Visit [facility] Surgical Oncology - [facility] [address] [place], [place] [phone] [facility] PA-C 111 [facility], [address] [place] [phone] documented as of this encounter Procedures Procedure [...] ??NO NE W PROBLEMS ?? NO PCP [REJI SIMPSON, REJI FAJARDO] PT TO H/C PREVIOUS FILMS FROM [facility] Comparison is made to films from 06-05-2001 and 06-19-2002. Bilateral Breast Findings (CAD used to interpret routine digital projection): The breasts are extremely dense which could obscure a lesion on mammography. No significant masses, calcifications or other abnormalities are seen. Procedure Note Carissa Kendall MD - 03/19/2009 ROUTINE HX SOTERO FIBROCYSTIC LUMPS - SOTERO GREEN NIPPLE DISCHARGE NO NE W PROBLEMS NO PCP [REJI SMIPSON, REJI FAJARDO] PT TO H/C PREVIOUS FILMS FROM [facility] Comparison is made to films from 06-05-2001 [...] OVERALL ASSESSMENT - NEGATIVE END OF IMPRESSION Michael Fajardo MD IM MAMMOGRAPHY [facility]IGUEL documented in this encounter Visit Diagnoses Not on filedocumented in this encounter
--- OUTSIDE RECORDS SUMMARY | 2024-03-27 20:12 | XMS_ITS | Encounter Summary ---
Author Organization [facility] Address [address] [place] [address] Care Team Providers Care Arc Air Operator Name Role Phone None, Provider Primary Care Provider Unavailabl e Encounter Details Date Type Department Care Team (Late st Contact Info) Description 05/17/2007 Before PRISM Converted Visit (Maple) [facility] - Maple conversion [address] [place] [address] Clarice Murcia MD [address] [place] [phone] Social History Tobacco Use Types Packs/Day [...] Clarice Murcia MD - kkb Job ID: [id number] Doc ID: [id number] cc: MD Nicki Osborn MD documented in this encounter Plan of Treatment Upcoming Encounters Date Type Department Care Team (Late st Contact Info) Description 04/23/2024 9:30 EDT Appointment [facility] Endoscopy - [address] [address] Marcellus Walsh MD [address] [place] [address], [facility], [address] [place] [address] 05/01/2024 13:30 EDT Appointment [facility] Breast Imaging - [facility] [address] [place] [address] [place], [place] [address] 05/15/2024 15:00 EST Telemedicine [facility] Gastroenterology - [address] [phone] Madhu Park MD PhD [address] [place] [address], [address] [place] [phone] 12/10/2024 11:30 EDT Office Visit [facility] Surgical Oncology - [address] [phone] [facility], PA-C [address] [place] [address], [facility] 2 [place] [phone] documented as of this encounter Visit Diagnoses Not on filedocumented in this encounter Care Teams Arc Air Operator Relationship Specialty Start Date End Date None, Provider PCP - General 12/19/08 10/22/09 documented as of this encounter
--- OUTSIDE RECORDS SUMMARY | 2024-03-27 20:12 | XMS_ITS | Encounter Summary ---
Author Organization [facility] Address [address] [place] [address] Care Team Providers Care Senior Sales Assistant Name Role Phone Unavailable Primary Care Provider Unavailabl e Encounter Details Date Type Department Care Team (Latest Contact Info) Description 12/24/2003 9:21 EDT - 12/24/2003 11:59 EDT Hospital Encounter [address] [address] Alexi Whitlock MD [address] [place] [phone] Discharge Disposition: Auto Discharge Social History [...] Description 04/23/2024 9:30 EDT Appointment [facility] Endoscopy - [facility] [address] [place], [place] [address] Marcellus Walsh MD 111 [facility], [address] [place] [phone] 05/01/2024 13:30 EDT Appointment [facility] Breast Imaging - [address] [phone] 05/15/2024 15:00 EST Telemedicine [facility] Gastroenterology - [facility] [address] [place], [place] [address] Madhu Park MD PhD 111 [facility], [address] [place] [phone] 12/10/2024 11:30 EDT Office Visit [facility] Surgical Oncology - [facility] [address] [place], [place] [address] [facility] PA-C 111 [facility], [facility] 2 [place] [phone] documented as of this encounter Procedures Procedure [...] EDT) UA Billing Microscopic not indicated. [facility] 12/24/2003 9:50 EDT 12/24/2003 9:57 EDT Alexi Whitlock MD URINALYSIS ORDERABLE S [facility] [address] [place] [address] * (ABNORMAL) URINALYSIS (12/24/2003 9:50 EDT) Color, UA Straw [facility] Clarity, UA Clear [facility] Glucose, UA Norm NORM [facility] Bilirubin, UA Neg NEG [facility] Ketones, UA Neg NEG [facility] Specific [place], Urine <1.005(L) 1.005 - 1.02 [facility] Blood, UA Neg NEG [facility] pH, UA 7.0 5.0 - 9.0 [facility] Protein, UA Neg NEG [facility] Urobilinogen, UA Norm NORM mg/dL [facility] Nitrite, UA Neg NEG [facility] Leuk Esterase Neg NEG [facility] 12/24/2003 9:50 EDT 12/24/2003 9:57 EDT Alexi Whitlock MD URINALYSIS ORDERABLE S Performing Organization Address [facility] Co de Phone Number [facility] [address] [place] [address] * LIPID PROFILE (INCLUDES CHOLESTEROL, TRIGLYCERIDES, HDL, LDL) (12/24/2003 9:48 EDT) Cholesterol 139 mg/dl [facility] Comment: Desirable:<200 Borderline:200-239 High Risk:>kf=919 Triglycerides 93 35 - 160 mg/dl [facility] HDL 60 mg/dl [facility] Comment: Highly Desirable:>60 Desirable:35-60 High Risk:<35 LDL, Calculated 60 mg/dl [facility] Comment: Desirable:<130 Borderline:130-159 High Risk:>gh=540 Chol/HDL Ratio 2.3 [facility] 12/24/2003 9:48 EDT 12/24/2003 9:57 EDT Alexi Whitlock MD CHEMISTRY & BLOOD GA S ORDERABLES Performing Organization Address [facility] Co de Phone Number [facility] [address] [place] [address] * BILIRUBIN DIRECT/INDIRECT (12/24/2003 9:48 EDT) Conjugated Bilirubin 0.0 0.0 - 0.3 mg/dl [facility] Unconjugated Bilirubin 0.6 0.1 - 1.1 mg/dl [facility] 12/24/2003 9:48 EDT 12/24/2003 9:57 EDT Alexi Whitlock MD CHEMISTRY & BLOOD GA S ORDERABLES Performing Organization Address [facility] Co de Phone Number [facility] [address] [place] [address] * (ABNORMAL) COMPREHENSIVE METABOLIC PANEL (12/24/2003 9:48 EDT) Potassium 4.4 3.5 - 5.0 mEq/L [facility] Sodium 139 136 - 145 mEq/L [facility] Chloride 103 96 - 110 [...] Serum 80 70 - 110 mg/dl [facility] Albumin/Globulin Ratio 1.7 [facility] 12/24/2003 9:48 EDT 12/24/2003 9:57 EDT Alexi Whitlock MD CHEMISTRY & BLOOD GA S ORDERABLES [facility] [address] [place] [address] * CEA (12/24/2003 9:48 EDT) CEA <0.5 ng/ml [facility] Comment: % Distribution of CEA (ng/ml) 0-2.5 in 98.2% of non-smokers and 87.3% of smokers 2.6-5.0 in 1.8% of non-smokers and 8.0% of smokers 5.1-10.1 in 4.7% of smokers Serum CEA concentration should not be interpreted as absolute evidence for the presence or absence of malignant disease. Assayed utilizing [employer] chemiluminescent technology. Values obtained by using different assay methods cannot be used interchangeably. 12/24/2003 9:48 EDT 12/24/2003 9:57 EDT Alexi Whitlock MD CHEMISTRY & BLOOD GA S ORDERABLES [facility] [address] [place] [address] * HEMAGRAM AND DIFFERENTIAL (12/24/2003 9:48 EDT) [...] [facility] Type of Diff: Automated [facility] 12/24/2003 9:48 EDT 12/24/2003 9:57 EDT Alexi Whitlock MD PACKAGES & DNA PROBE ORDERABLES [facility] [address] [place] [address] * CA 125 (12/24/2003 9:48 EDT) CA 125 20 0 - 35 U/ml [facility] Comment: Serum CA125 concentrations should not be interpreted as absolute evidence for the presence or absence of malignant disease. Assayed utilizing [employer] technology. Values obtained by using different assay methods cannot be used interchangeably. [employer] methodology in use 03/18/03. 12/24/2003 9:48 EDT 12/24/2003 9:57 EDT Alexi Whitlock MD CHEMISTRY & BLOOD GA S ORDERABLES Performing Organization Address City/State/[facility] Co de Phone Number [facility] [address] [place] [address] documented in this encounter Visit Diagnoses Not on filedocumented in this encounter
--- OUTSIDE RECORDS SUMMARY | 2024-03-27 20:12 | XMS_ITS | Encounter Summary ---
Author Organization [facility] Address [address] [place] [address] Care Team Providers Care Director Targeted Marketing Name Role Phone Unavailable Primary Care Provider Unavailabl e Encounter Details Date Type Department Care Team (Latest Contact Info) Description 09/10/2004 6:58 EST - 09/10/2004 11:[address] [facility] - Other [address] [place] [address] Nicki Dover MD Discharge Disposition: Auto Discharge [...] Info) Description 04/23/2024 9:[address] [facility] Endoscopy - [facility] [address] [place] [address] Marcellus Walsh MD [address] [facility], Level 5 [place] [address] 05/01/2024 13:[address] [facility] Breast Imaging - [place] [address] [address] 05/15/2024 15:[address] [facility] Gastroenterology - [facility] [address] [place] [address] Madhu Park MD PhD [address] [facility], [address] [place] [address] 12/10/2024 11:[address] [facility] Surgical Oncology - [facility] [address], [place] [phone] [facility] PA-C [address] [facility], [address] 2 [place] [address] documented as of this [...] GREEN NIPPLE DISCHARGE ? NO PCP ?? [REGLENN RYAN] Comparison is made to films from 09-02-2003, 06-19-2002, and 06-05-2001. Bilateral Breast Findings (CAD used to interpret routine digital projection): The breasts are extremely dense which could obscure a lesion on mammography. No significant masses, calcifications or other abnormalities are seen. Procedure Note Ale Weldon / Carissa Kendall MD - 03/06/2009 ROUTINE HX SOTERO FIBROCYSTIC LUMPS - SOTERO GREEN NIPPLE DISCHARGE NO PCP [REGLENN RYAN] Comparison is made to films from 09-02-2003, [...] NEGATIVE END OF IMPRESSION Glenn Fajardo MD IM MAMMOGRAPHY ROSETTAE MIGUEL documented in this encounter Visit Diagnoses Not on filedocumented in this encounter
--- OUTSIDE RECORDS SUMMARY | 2024-03-27 20:12 | XMS_ITS | Encounter Summary ---
Author Organization [facility] Address [address] [place] [address] Care Team Providers Care Recruiting Coordinator Name Role Phone None, Provider Primary Care Provider Unavailabl e Encounter Details Date Type Department Care Team (Late st Contact Info) Description 01/13/2009 Orders Only [address] [address] Clarice Murcia MD [address] [place] [phone] Social History Tobacco Use Types Packs/Day Years Used Date Smoking Tobacco: Never Assessed Sex and Gender Information Value Date Recorded Sex Assigned at Not on file Gender Identity Female 05/16/2019 10:23 EST Sexual Orientation Not on file documented as of this encounter Plan of Treatment Upcoming Encounters Date Type Department Care Team (Late st Contact Info) Description 04/23/2024 9:30 EDT Appointment [facility] Endoscopy - [facility] [address], [place] [address] Marcellus Walsh MD [address] [facility], [address] 5 [place] [phone] 05/01/2024 13:30 EDT Appointment [facility] Breast Imaging - [address] 6[address]351 05/15/2024 15:00 EST Telemedicine [facility] Gastroenterology - [facility] [address], [place] [phone] Madhu Park MD PhD [address] [facility], [address] [place] [phone] 12/10/2024 11:30 EDT Office Visit [facility] Surgical Oncology - [facility] [address], [place] [phone] [facility] PAPrabhaC [address] [facility], [address] [place] [phone] documented as of this encounter Procedures Procedure [...] on filedocumented in this encounter Care Teams Recruiting Coordinator Relationship Specialty Start Date End Date None, Provider PCP - General 12/19/08 10/22/09 documented as of this encounter
--- OUTSIDE RECORDS SUMMARY | 2024-03-27 20:12 | XMS_ITS | Encounter Summary ---
Author Organization [facility] Address [address] [place] [address] Care Team Providers Care Tea And Spice Supervisor Name Role Phone Unavailable Primary Care Provider Unavailabl e Encounter Details Date Type Department Care Team (Late st Contact Info) Description 05/17/2007 8:48 EST Hospital Encounter [facility] [place] [address] [place] [address] Clarice Murcia MD [address] [place] [phone] Social History Tobacco Use Types Packs/Day [...] Description 04/23/2024 9:30 EDT Appointment [facility] Endoscopy - [address] [phone] Marcellus Walsh MD 111 [facility] 5 [place] [phone] 05/01/2024 13:30 EDT Appointment [facility] Breast Imaging - [address] [phone] 05/15/2024 15:00 EST Telemedicine [facility] Gastroenterology - [address] [phone] Madhu Park MD PhD [address] [place] [phone] 12/10/2024 11:30 EDT Office Visit [facility] Surgical Oncology - [address] [phone] [facility] PA-C [address] [place] [address], [facility] [address] [place] [phone] documented as of this encounter Visit Diagnoses Not on filedocumented in this encounter
--- OUTSIDE RECORDS SUMMARY | 2024-03-27 20:12 | XMS_ITS | Encounter Summary ---
Author Organization [facility] Address [address] [place] [address] Care Team Providers Care Safety Representative Name Role Phone Unavailable Primary Care Provider Unavailabl e Encounter Details Date Type Department Care Team (Late st Contact Info) Description 05/20/2006 11:00 EST Hospital Encounter [facility] - Other [address] [place] [address] Clarice Murcia MD [address] [place] [phone] Social History Tobacco Use Types Packs/Day [...] Info) Description 04/23/2024 9:30 EDT Appointment [facility] Endoscopy - [facility] [address] [place], [place] [address] Marcellus Walsh MD 111 [facility], [facility] 5 [place] [phone] 05/01/2024 13:30 EDT Appointment [facility] Breast Imaging - [facility] [address] [place], [place] [address] 05/15/2024 15:00 EST Telemedicine [facility] Gastroenterology - [address] [phone] Madhu Park MD PhD [address] [place] [phone] 12/10/2024 11:30 EDT Office Visit [facility] Surgical Oncology - [address] [phone] [facility], PA-C [address] [place] [address], [facility] [address] [place] [phone] documented as of this encounter Visit Diagnoses Not on filedocumented in this encounter
--- OUTSIDE RECORDS SUMMARY | 2024-03-27 20:12 | XMS_ITS ---
Author Organization Unknown Address [address] [place] [phone] Phone Care Team Providers Care Engraving Plate Maker Name Role Phone [place]SE Attending Unavailable Results HEMOCHROMATOSIS MOLECULAR TE STING* - Collect Date/Time: 02/28/2024 11:30 [facility] ID: [id number] [address] [place], [place], [phone] LOINC: 33376-3 Test Value Unit Reference Range Code Code System Flag Result Summary COMPLEX (SEE RESULT AND INTERPRETATION) 56327-3 LOINC Result See Comments 75994-3 LOINC Interpretation See Comments 27202-1 LOINC Specimen WB Whole Blood 57485-9 LOINC Method See Comments 97599-9 LOINC Released By See Comments 10057-3 LOINC US ABD LIMITED ONE ORGAN - C ompleted: 02/28/2024 10:42 LOINC: [facility] RADIOLOGY [place], [place] [address] RADIOLOGY BOOM STICK MAN REPORT Patient Name: DINA BARRETT MRN: Sex: : Age: [id number] F 1960 63 Account: Accession: Admit: StayType: [id number] 02/28/2024 O Ordered: Order ID: Submitted: Ordering Provider: 02/28/2024 10:10 [address] PADMA MACHADO Completed: Technologist: Resulted: 02/28/2024 09:[address] [facility] 02/28/2024 11:48 Abdominal (Signed Final 02/28/2024 11:48 am) PATIENT INFO: ID #: [id number] : [birth year] (63 yrs)(F) Name: DINA BARRETT Visit Date: 02/28/2024 10:44 am PERFORMED BY: Attending: Gianni Woodruff MD Performed By: Smooth FRAZIER, RVT, RTMarta Referred By: PADMA ALEJANDRE Location: [facility] SERVICE(S) PROVIDED: UABDLIM - Abdominal Limited Survey Single 66766 Organ or Quadrant - [id number] INDICATIONS: Reason US Abdomen: ELEVATED LIVER ENZYMES [...] who have questions, please contact the health pet caregiver that requested your imaging first. Gianni Woodruff Electronically Signed Final Report 02/28/2024 11:48 am Social History Type Status Start Date End Date Code Code Syst em Smoking History Never smoker (Never Smoked) 784411571 SNOMED CT Sex Female Hospital Discharge Instructions [...] Sys tem Elevated liver enzymes level 02/28/2024 284948748 SNOMED-CT Personal Care Team Section Performer Name Performer Role Active Date Inactive Da te Imaging Narrative Notes US ABD LIMITED ONE ORGAN [facility] null ERROR NOTE CONTENT UNAVAILABLE: Failed to copy:/usr1/xr14/22/[id number] to /usr1/xr14//[id number].txt
--- OUTSIDE RECORDS SUMMARY | 2024-03-27 20:13 | XMS_ITS | Data Portability ---
Author Organization [facility], [facility] Address [address] [facility] [address] [place] [address] Care Team Providers Care Surgical Instrument Mechanic Name Role Phone JOSELIN FUNES Primary Care Provider [phone] Assessment No assessment recorded. Plan of Treatment Reminders Order Date Submit Date Provider Last Modified By Organization Details Last Modified Time Details Appointments None recorded. Lab None recorded. Referral None recorded. Procedures None recorded. Surgeries None recorded. Imaging XR, hip, unilateral [email or web address], [address], 11:18:48 Medication Orders None recorded. Patient TargetsNo targets recorded. Patient Instructions Encounter Date Encounter Id Patient Instructions Last Modified By Organization Details Last Modified Time 10/05/2021 [id number] Anne's clinical exam today shows significant range [...] hiking. She prefers to go [facility] and actually had a couple of names [...] teral No observ ation record ed. Gwen Kanari [address] [place] [address], [address] 10/05/2021 16:36:15 10/06/19 XR, hip, unila teral No observ ation record ed. [address], [address], 10/05/2021 09:55:20 Result Notes None recorded. Problems Name Problem SNOMED Code Status Onset Date Resolution Date Notes Provider Name and Address Organization Details Recorded Time Osteoarthritis of hip 900278130 Active [address]OVOA [address] [place] [address], [phone] [place] [address] [facility] 09:55:39 Problem Notes None recorded. Procedures Surgical History None recorded. Imaging Results Imaging Date Name Status LastModified by Organiz [facility] Details LastModified Time 09/29/2021 XR, hip, unilateral completed Information not available 09/29/2021 08:08:01 09/29/2021 XR, hip + pelvis, bilateral completed Information not available 09/29/2021 08:08:03 10/05/2021 XR, hip, unilateral completed [address], [place], [address] 10/05/2021 16:36:15 10/05/2021 XR, hip, unilateral completed [address], [address], 10/05/2021 09:55:20 Procedure Notes None recorded. Medical [...] 10/05/2021 97.6 [degF] 165.1 cm 21.3 kg/m2 64189.82 g Myra Vasquez [facility] 10/05/2021 09:29:34 Social History Question Answer Notes LastModified by Organizat ion Details LastModified Time Tobacco Smoking Status Never [facility]oker [facility] 10/05/2021 09:27:49 What Is Your Level Of Alcohol Consumption? Moderate Information not available 10/05/2021 Are You Deaf Or Do You Have Serious Difficulty Hearing? No Information not available 10/05/2021 Which Illicit Or Recreational Drugs Have You Used? 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 Information not available 10/05/2021 Which Of Your [...] Age of this Age Resolved Age Notes LastModified by Organization Details LastModified Time Father Diabetes mellitus 38 79 Not available 09/09 09:27:57 Mother Family history of malignant neoplasm 68 70 Not available 09/09 09:27:57 Mother Arthritis 38 Not avail able 10/05/2021 09:27:57 Medical History Condition Response Coronary Artery Disease N Gout N Lung Disease N Depression N Pacemaker N Hearing Impairment N Anesthesia Complications N Headaches/Migraines N Deep Vein Thrombosis N Anxiety Disorder N Arthritis N Blood Clot N Acid Reflux (GERD) N Cancer Y Stroke N Organ Transplant N Rheumatoid Arthritis N Fibromyalgia N Kidney Disease N Dyslipidemia N Artificial Joints N Thyroid Problems N Anemia N Back Pain N Heart Attack (AK) N Diabetes N Bleeding Disorder N Seizures/Epilepsy N Cardiac Stent N Tuberculosis N AIDS/HIV N Inflammatory Bowel Disease N Substance Abuse N Peripheral Vascular Disease N Asthma/COPD N Wears Glasses/Contacts N Hepatitis N Heart Disease N Pulmonary Embolism N Stomach Ulcer N Hypertension N Osteoporosis N Gynecological HistoryNo gynecological history recorded. Obstetrics History GPAL:G 0 P 0 0 0 0 Immunizations Vaccine Type Date Status Provider Name and Address Organization Details Recorded Time COVID-19, mRNA, LNP-S, PF, 30 mcg/0.3 mL dose 05/27/2021 completed Myra Vasquez [facility] 10/05/2021 09:30:30 Past Encounters Encounter ID Performer Location Encounter Start Date Encounter Closed Date Diagnosis/Indication Diagnosis SNOMED-CT Code Diagnosis ICD10 Code 719704 URI NOVOA [address] [address] 10/05/2021 09:15:25 10/05/2021 11:18:48 Hip pain 50182339 M25.551 Osteoarthritis of hip 23 2441425 M16.11 Health Concerns Section Related Observation LastModified by Organization Detai ls LastModified Time None Recorded Concern Status LastModified by Organization Details LastModified Time None Recorded Advance Directives Directive None Recorded Payers Encounter Date Sequence Insurance Name Policy Number Policy Hendrickson Covered Member ID Hendrickson Member ID Guarantor Name 10/05/2021 1 [place] [facility] [id number] Sandhya Lomas [id number] Sandhya Cesilia Notes Date Note Type Note Provider Name [...] numbness or tingling or weakness. URI NOVOA [address] [place] [address], [phone], [facility] 10/05/2021 09:59:12 OBGyn Episode No OBEpisode recorded.
--- OUTSIDE RECORDS SUMMARY | 2024-03-27 20:13 | XMS_ITS | Patient Health Record ---
Author Organization [facility] Address [address] 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 [address] 05/26/2023 Mar Gannon Encounter for gynecological examination (general) (routine) without abnormal findings Z01.419 and Postmenopausal atrophic vaginitis N95.2 [facility] [address] [facility], [address] [place] [address] 02/15/2024 Mar Gannon Assessments Encounter Date Diagnosis [...] recommendations. Mammogram guidelines discussed. 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 Additional health care maintenance with primary care provider. Pap / HPV every 5 years due in 2024. Continue Calcium rich foods, Vit D supplement, and wt bearing exercise. Consider early DXA, and she will f/u with PCP. Plan Of Treatment Next Appt Details Provider Name:Mar rousseau, 09/06/2024 01:00:00 PM, [address], [address], [place], [address], Insurance Providers Payer Name Payer Address Payer Phone Subscriber Number Group Number Insured Name Patient Relationship to Insured Coverage Start Date Coverage End Date [facility] [address] [place] [address] [id number] Sandhya Lomas Self - patient is [...]
[2024-03-30 11:43] LABS: IgA 221 mg/dL (85-499); Interpretation (See Note); Tissue Transglutaminase IgA <4.0 CU (<20.0)
== END 2024-03-27 20:06 | disposition home or self-care (01) ==
LOC: NCHCN 20:05
PROVIDERS: PCP Family Medicine; Visit Provider Family Medicine
DX: R74.01 Elevation of levels of liver transaminase levels (principal)
CPT/HCPCS: 82784; 83516

== ENCOUNTER 2024-05-14 11:42 | Outpatient (REF) | payer BC, SELFPAY ==
[2024-05-14 14:28] LABS: ALT 46 U/L (14-59); AST 48 U/L (15-37); Albumin 3.7 g/dL (3.4-5.0); Alkaline Phosphatase 92 U/L (46-116); Anion Gap 1.6 mmol/L (3-11); BUN 12 mg/dL (7-18); Bilirubin, Total 0.51 mg/dL (0.2-1.0); CO2 31.4 mmol/L (21.0-32.0); CREATININE 0.7 mg/dL (0.55-1.02); Calcium 9.2 mg/dL (8.5-10.1); Chloride 105 mmol/L (98-107); Estimated GFR 97.12 (mL/min/1.73m2); Glucose 83 mg/dL (74-106); Potassium 4.5 mmol/L (3.5-5.1); Sodium 138 mmol/L (136-145); Total Protein 6.9 g/dL (6.4-8.2)
== END 2024-05-14 11:43 | disposition home or self-care (01) ==
LOC: NCHCN 11:42
PROVIDERS: PCP Family Medicine; Visit Provider Family Medicine
DX: R74.01 Elevation of levels of liver transaminase levels (principal)
CPT/HCPCS: 80053

== ENCOUNTER 2025-01-21 15:49 | Outpatient (REF) | payer BC, SELFPAY ==
[2025-01-21 15:49] LABS: Iron 213 ug/dL (50-170); Total Iron Binding Capacity 235 ug/dL (250-450); Transferrin Sat 91 % (15-50)
[2025-01-21 16:02] LABS: ALT 38 U/L (14-59); AST 36 U/L (15-37); Albumin 4.1 g/dL (3.4-5.0); Alkaline Phosphatase 96 U/L (46-116); Anion Gap 5.7 mmol/L (3-11); BUN 12 mg/dL (7-18); Bilirubin, Total 0.7 mg/dL (0.2-1.0); CO2 30.3 mmol/L (21.0-32.0); Calcium 9.0 mg/dL (8.5-10.1); Chloride 101 mmol/L (98-107); Estimated GFR 104.67 (mL/min/1.73m2); Ferritin 202 ng/mL (8-252); Glucose 85 mg/dL (74-106); Potassium 4.5 mmol/L (3.5-5.1); Sodium 137 mmol/L (136-145); Total Protein 6.9 g/dL (6.4-8.2)
== END 2025-01-21 15:50 | disposition home or self-care (01) ==
LOC: NCHCN 15:49
PROVIDERS: PCP Family Medicine; Visit Provider Family Medicine
DX: R74.01 Elevation of levels of liver transaminase levels (principal); E83.119 Hemochromatosis, unspecified
CPT/HCPCS: 80053; 82728; 83540; 83550

== ENCOUNTER 2025-02-28 13:28 | Outpatient (REF) | payer BC, SELFPAY ==
--- NOTE | 2025-02-28 09:45 | SKI_PTH ---
PATIENT: Sandhya Lomas [id number] AGE/SX: 64/F ROOM: RE02/28/[address]: Rocio Hendrix : 1960 BED: DIS: 02/28/2025 SPEC #: [id number] RECD: 02/28/25 16:19 STATUS: DAISY REQ #: [id number] MADISYN: 02/28/25 09:[address]: Rocio Hendrix DEPT: Surgical Specimen RECD BY: Marita Dumont Tissues: 1 - SKIN BIOPSY(SHAVE/PUNCH) Procedures: SKIN LEVEL 4 Comments: [id number]
[2025-02-28 16:08] LABS: Ferritin 136 ng/mL (8-252)
[2025-02-28 16:09] LABS: Iron 219 ug/dL (50-170); Total Iron Binding Capacity 254 ug/dL (250-450); Transferrin Sat 86 % (15-50)
== END 2025-02-28 13:29 | disposition home or self-care (01) ==
LOC: NCHCN 13:28
PROVIDERS: PCP Family Medicine; Visit Provider Family Medicine
DX: E83.110 Hereditary hemochromatosis (principal)
CPT/HCPCS: 82728; 83540; 83550; 88305

== ENCOUNTER 2025-06-25 15:48 | Outpatient (REF) | payer BC, SELFPAY ==
[2025-06-25 21:12] LABS: Ferritin 67 ng/mL (7-271)
[2025-06-25 21:14] LABS: ALT 25 U/L (10-49); AST 39 U/L (<34); Albumin 4.1 g/dL (3.2-5.0); Alkaline Phosphatase 74 U/L (46-116); Anion Gap 6.8 mmol/L (3-11); BUN 13 mg/dL (9-23); Bilirubin, Total 0.5 mg/dL (0.2-1.2); CO2 27.2 mmol/L (20.0-31.0); Calcium 8.9 mg/dL (8.3-10.6); Chloride 104 mmol/L (98-107); Glucose 99 mg/dL (74-106); Potassium 4.0 mmol/L (3.5-5.1); Sodium 138 mmol/L (136-145); Total Protein 6.7 g/dL (5.7-8.2)
== END 2025-06-25 15:49 | disposition home or self-care (01) ==
LOC: NCHCN 15:48
PROVIDERS: PCP Family Medicine; Visit Provider Family Medicine
DX: E83.110 Hereditary hemochromatosis (principal)
CPT/HCPCS: 80053; 82728